=== PATIENT | female | born 1950 | race Caucasian/White ===

== ENCOUNTER 2017-08-25 12:09 | Emergency (ER) | payer MEDICAID, SELFPAY ==
[2017-08-25 12:10] VITALS: BP 186/112; PULSE 72; RESP 16; TEMP 36.7; O2SAT 95; BMI 25.2
--- NOTE | 2017-08-25 12:50 | ED.DCSUM_ITS ---
- ER Visit Summary Date of Service: 08/25/17 Chief Complaint: Back pain History of Present Illness: The patient is a 66 F who presents for 1 week of lower back pain. Patient was moving and doing a lot of lifting and bending 1 week ago, and then developed gradual lower back pain bilaterally. She was seen 2 days ago at urgent care and prescribed Flexeril and diclofenac. She has had minor improvement but states the pain has worsened, now radiating down both posterior hips and legs to the knee. Patient denies any loss of bowel or bladder control, any saddle anesthesia, any numbness or weakness in the legs, fever, abdominal pain or any other concerns. She did use naproxen prior to seeing urgent care and states it helped with her pain. Physical Examination: Vital signs: afebrile, hemodynamically stable, no hypoxia on room air General: well nourished, well developed, in no distress Skin: warm, dry, no rash, no pallor HEENT: normocephalic and atraumatic Cardiovascular: regular rate and rhythm without murmurs, no peripheral edema, 2 + pulses all distal extremities Respiratory: No increased work of breathing, Abdominal: Abdomen is soft, nontender with normoactive bowel sounds, no guarding or rebound, no masses Back: No midline deformities or step-offs, no midline tenderness, patient has lumbar and gluteal paraspinal musculature tenderness bilaterally MSK: Moves all extremities, no deformities, normal strength, negative leg raise pain position Neuro: Awake and alert, oriented ?4. No facial droop, sensation and motor function intact and symmetric Test Results: [] Emergency Department Course and Treatment: I had a long discussion with the patient about expectations for improvement of lower back strains. We discussed medical and nonmedical management and that it normally just takes time to improve. Patient will return to taking naproxen as she felt that worked better than the diclofenac. Patient was given 1 dose of Valium in the emergency department to help with the muscle spasm nature of her pain. She does have someone else driving. Patient was given a small prescription for Valium to help her with nighttime pain and sleeping. She understands that she is not to take it with the cyclobenzaprine. Patient is to follow-up with her family doctor if she is not having improvement in 2-4 weeks. If she develops any red flag symptoms, such as bowel or bladder incontinence, saddle anesthesia, weakness in the legs, numbness in the feet, fever or abdominal pain, she will return to the emergency department immediately for another evaluation. Patient discharged home. Treatment Plan: [] Disposition: [] Impression: lumboSacral strain, lower back spasms This note was generated with [employer] dictation software. It may contain incorrect words, spelling, and punctuation that were not noted in review of the chart prior to signing ED Disposition - Plan for ED Patient: Chief Complaint: Back Prescriptions: Diazepam [Valium] 2 mg PO TID PRN PRN #10 tab PRN Reason: Muscle Spasm Referrals: NOT,DEFINED [Primary Care Provider] -
--- NOTE | 2017-08-25 12:50 | ED.DEP ---
ED Disposition - Plan for ED Patient: Disposition: Home or Assisted Living Chief Complaint: Back Instructions: ED Sprain Strain Lumbar Prescriptions: Diazepam [Valium] 2 mg PO TID PRN PRN #10 tab PRN Reason: Muscle Spasm Lidocaine [Lidoderm Patch] 1 patch TOPICAL DAILY PRN #14 patch PRN Reason: Pain Referrals: Angel Rodriguez MD [STAFF PHYSICIAN] - 1-2 Weeks Additional Instructions: You may use naproxen (aleve) for your back pain but do not use it at the same time as the diclofenac. You may use the Valium at night for severe back pain and spasms. Do not use Valium and cyclobenzaprine at the same time. You may try the lidocaine patches over your lower back, using only one patch at a time and for no more than 12 hours. Do not use more than 1 and 24 hour period. Low back pain may take up to 6-8 weeks to heal. If you are still having symptoms after 2 weeks, please see your doctor for reevaluation. Gentle exercise may help you with the pain. You can also try a heating pad. If you develop any concerning symptoms such as trouble controlling your bowels or bladder, fever, severe abdominal pain, numbness or weakness in your legs, or any other concerning symptoms, return immediately to the emergency department for another evaluation.
[2017-08-25] MEDS: diazePAM 5 MG Tablet 2.5 MG PO (13:01)
[2017-08-25 13:03] VITALS: BP 122/74; PULSE 68; RESP 15; O2SAT 98
== END 2017-08-25 13:04 | disposition home or self-care (01) ==
PROVIDERS: Emergency Provider Emergency Medicine
DX: S39.012D Strain of muscle, fascia and tendon of lower back, subsequent encounter (principal); X50.3XXD Overexertion from repetitive movements, subsequent encounter; R25.2 Cramp and spasm
CPT/HCPCS: 99283

== ENCOUNTER 2018-06-27 18:45 | Emergency (ER) | payer MEDICAID, SELFPAY ==
[2018-06-27 18:45] VITALS: BP 157/95; PULSE 73; RESP 18; TEMP 36.1; O2SAT 94; BMI 22.6
--- NOTE | 2018-06-27 20:29 | ED.RN ---
PT LEAVES WITHOUT BEING SEEN.
== END 2018-06-27 19:30 ==
LOC: ED 20:25
PROVIDERS: Emergency Provider Emergency Medicine
DX: S09.90XA Unspecified injury of head, initial encounter (principal)

== ENCOUNTER 2020-10-13 11:16 | Emergency (ER) | payer MEDICARE, SELFPAY ==
[2019-01-22 12:18] VITALS: BMI 22.6
[2020-10-13 11:17] VITALS: BP 193/105; PULSE 86; RESP 18; TEMP 36.4; O2SAT 95; BMI 24.2
[2020-10-13] MEDS: Morphine 4 MG/ML Syringe IV ×2 (12:00→17:00)
[2020-10-13] MEDS: Ondansetron 4 MG/2 ML Vial IV (12:00)
[2020-10-13 12:03] LABS: Color, Urine Yellow (Yellow); Glucose, Dipstick Normal (Normal); Ketone-Dipstick 50 mg/dl (Negative); Leukocyte Esterase-Dipstick 100 /ul (Negative); Nitrite-Dipstick Positive (Negative); Occult Blood-Urine 250 /ul (Negative); Protein-Dipstick 30 mg/dl (Negative); Urine Clarity Cloudy (Clear); Urine Urobilinogen 4 mg/dl (Normal)
[2020-10-13 12:04] LABS: Urine Bilirubin Dipstick 1 mg/dL (Negative)
--- NOTE | 2020-10-13 12:10 | CT_ITS ---
STUDY: CT ABDOMEN AND PELVIS WITHOUT CONTRAST REASON FOR EXAM: Female, 69 years old. Kidney Stone. One week history of back pain and flank pain. RADIATION DOSAGE (If Supplied By Facility): CTDIvol = ( 13.87 ) mGy, DLP = ( 623.50 ) mGycm TECHNIQUE: Transaxial images were obtained from the dome of the diaphragm to the symphysis pubis without oral contrast, and without intravenous contrast. Sagittal and coronal images were reconstructed. Individualized dose optimization techniques were used for this CT. COMPARISON: None. FINDINGS: Bilateral breast prostheses. 7 mm calcified granuloma in the posterior medial aspect of the left lower lobe. The visualized portions of the heart are within normal limits. Normal liver. Normal gallbladder and extrahepatic biliary system. Normal spleen. Normal pancreas. Normal bilateral adrenal glands. Normal right kidney. There is a 1.9 cm cyst in the posterior inferior aspect of the left kidney. Normal visualized stomach. Normal small intestine. There are multiple colonic diverticula consistent with diverticulosis. The appendix is visualized and appears normal. There is diffuse atherosclerotic calcification of the abdominal aorta and its major visceral branches. There is evidence of a fusiform infrarenal abdominal aortic aneurysm with a transverse dimension of 5 cm. 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 Normal inferior vena cava. Normal retroperitoneum. Normal urinary bladder. There is absence of the uterus consistent with a prior hysterectomy. Normal abdominal wall. There are mild degenerative changes of the visualized lumbar spine. Minimal anterior listhesis of L3 on L4 secondary to facet joint osteoarthritis. 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 Sigmoid diverticulosis. 1.9 cm cyst in the inferior pole of the left kidney. Electronically Signed: Kar Ni MD at 12:35 EDT , Service support ,
[2020-10-13 12:14] LABS: Anion Gap 5 (5-15); BUN 15 mg/dL (7-18); BUN/Creat Ratio 16.6 RATIO (10-20); Calcium,Total 9.4 mg/dL (8.5-10.1); Chloride 105 mmol/L (98-107); EST Glomerular Filtration Rate 66 mL/min (>60); Est Glom Filt Rate - Afr Amer 80 mL/min (>60); Estimated Creatinine Clearance 56.78 ml/min; Glucose 127 mg/dL (74-106); Potassium 3.1 mmol/L (3.5-5.1); Sodium Level 138 mmol/L (136-145)
[2020-10-13 12:18] LABS: Bacteria 4+ /hpf (None Seen); Mucous, Urine RARE /hpf (<or=2+); Red Blood Cells-Urine 0-5 SEEN /hpf (0-5); Squamous Epithelial Cells - UA 5-10 SEEN /hpf (5-10); White Blood Cells 10-25 SEEN /hpf (0-5)
--- NOTE | 2020-10-13 12:40 | ED.DCSUM_ITS ---
- ER Visit Summary Date of Service: 10/13/20 Chief Complaint: Left flank pain History of Present Illness: The patient is a 69 F presenting with left flank pain. She states this started approximately 1 week ago. She denies injury. She has pain in her left flank. She denies abdominal pain. Denies nausea, vomiting, diarrhea. Denies urinary complaints. Denies other symptoms. Physical Examination: Vitals are stable. Patient is afebrile. Alert no acute distress. HEENT exam is unremarkable. Neck is supple. Lungs are clear and equal bilaterally. Heart is regular rate and rhythm. Abdomen is soft nontender nondistended. No guarding or rebound Back: Left CVA tenderness, left paraspinal lumbar muscle tenderness. Extremities are unremarkable. Skin is warm and dry. No focal neurologic deficit. Remainder of exam is unremarkable. Emergency Department Course and Treatment: Patient was given IV morphine, Zofran. Chemistries show potassium 3.1, glucose 127. Urinalysis shows 10-25 white blood cells, positive leukocytes, positive nitrite. 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 Sigmoid diverticulosis. 1.9 cm cyst in the inferior pole of the left kidney. CTA abdomen pelvis shows infrarenal abdominal aortic aneurysm with a transverse dimension of 4.5 cm. Mural thrombus is seen. 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 Findings discussed with Dr. Odom and patient will be seen as an outpatient. She was given Rocephin IV and a prescription for Keflex. She is given Dr. Kirkpatrick on-call for no doctor for follow-up. She is comfortable with discharge home. Advised to return to the ED for worsening complaints. Disposition: Discharge home Impression: Back pain, UTI, abdominal aortic aneurysm This note was generated with [employer] dictation software. It may contain incorrect words, spelling, and punctuation that were not noted in review of the chart prior to signing ED Disposition - Plan for ED Patient: Instructions: Understanding Urinary Tract Infections (UTIs), ED Abdominal Aorti c Aneurysm (Stable) Prescriptions: Cephalexin [Keflex] 500 mg PO Q6 #40 capsule Prescription Printed Hydrocodone Bitart/Apap 5-325 [[place] 5MG-325MG] 1 tablet PO Q6H PRN PRN 3 Days #10 tab PRN Reason: Pain Prescription Printed Referrals: Ilia Odom MD [STAFF PHYSICIAN] - Tommy Kirkpatrick DO [NON CLINICAL AFFILIATE] -
--- NOTE | 2020-10-13 13:09 | CT_ITS ---
STUDY: CTA ABDOMEN/PELVIS WITH CONTRAST REASON FOR EXAM: Female, 69 years old. AAA RADIATION DOSAGE (If Supplied By Facility): CTDIvol = ( 7.27 ) mGy, DLP = ( 715.29 ) mGycm TECHNIQUE: The examination was performed with the intravenous administration of IV 100mL Isovue-370. Post-processing of the angiographic images was performed, with multiplanar reformation and 3D reconstruction. Individualized dose optimization techniques were used for this CT. COMPARISON: Comparison is made with prior examination the narrowing today. FINDINGS: CT Abdomen T Pelvis Stable calcified granulomata posterior medial aspect of the left lower lobe. The visualized portions of the heart are within normal limits. Normal liver. Normal gallbladder and extrahepatic biliary system. Normal spleen. Normal pancreas. Normal bilateral adrenal glands. Normal right kidney. Stable left renal cyst. Normal visualized stomach. Normal small intestine. Normal colon. The appendix is visualized and appears normal. Infrarenal abdominal aortic aneurysm with a transverse dimension of 4.5 cm. Mural thrombus is seen. There is evidence of a partially thrombosed left common iliac artery aneurysm measuring 3 cm. Normal inferior vena cava. Normal retroperitoneum. Normal urinary bladder. Normal abdominal wall. There are diffuse degenerative changes of the visualized lumbar spine. CT/CT ANGIO ABD&PEL W/O&W/DYE IMPRESSION: Infrarenal abdominal aortic aneurysm with a transverse dimension of 4.5 cm. Mural thrombus is seen. 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 Electronically Signed: Kar Ni MD at 15:49 EDT , Service support ,
[2020-10-13 14:22] VITALS: BP 192/91; PULSE 70; RESP 18; O2SAT 92
[2020-10-13 16:00] VITALS: PULSE 81; RESP 14; O2SAT 98
--- NOTE | 2020-10-13 17:22 | DCINST.ED_ITS ---
ED Disposition - Plan for ED Patient: Prescriptions: Cephalexin [Keflex] 500 mg PO Q6 #40 capsule Hydrocodone Bitart/Apap 5-325 [[place] 5MG-325MG] 1 tablet PO Q6H PRN PRN 3 Days #10 tablet PRN Reason: Pain Referrals: Ilia Odom MD [STAFF PHYSICIAN] -
[2020-10-13] MEDS: Ceftriaxone 1 GM/50 ML BAG IV (17:48)
[2020-10-13 18:00] VITALS: BP 162/89; PULSE 82; RESP 15; O2SAT 98
--- NOTE | 2020-10-13 18:13 | DCINST.ED_ITS ---
ED Disposition - Plan for ED Patient: Prescriptions: Cephalexin [Keflex] 500 mg PO Q6 #40 capsule Prescription Printed Hydrocodone Bitart/Apap 5-325 [[place] 5MG-325MG] 1 tablet PO Q6H PRN PRN 3 Days #10 tab PRN Reason: Pain Prescription Printed Referrals: Ilia Odom MD [STAFF PHYSICIAN] - Tommy Kirkpatrick DO [NON CLINICAL AFFILIATE] -
--- NOTE | 2020-10-13 18:15 | DCINST.ED_ITS ---
ED Disposition - Plan for ED Patient: Instructions: ED Abdominal Aortic Aneurysm (Stable), Understanding Urinary Tract Infections (UTIs) Prescriptions: Cephalexin [Keflex] 500 mg PO Q6 #40 capsule Prescription Printed Hydrocodone Bitart/Apap 5-325 [[place] 5MG-325MG] 1 tablet PO Q6H PRN PRN 3 Days #10 tab PRN Reason: Pain Prescription Printed Referrals: Ilia Odom MD [STAFF PHYSICIAN] - Tommy Kirkpatrick DO [NON CLINICAL AFFILIATE] -
== END 2020-10-13 18:35 | disposition home or self-care (01) ==
PROVIDERS: Emergency Provider Emergency Medicine
DX: N39.0 Urinary tract infection, site not specified (principal); I71.4 Abdominal aortic aneurysm, without rupture; I72.3 Aneurysm of iliac artery; K57.30 Diverticulosis of large intestine without perforation or abscess without bleeding; N28.1 Cyst of kidney, acquired; I51.3 Intracardiac thrombosis, not elsewhere classified
CPT/HCPCS: 74174; 74176; 80048; 81001; 96365; 96375; 96376; 99283; J7050; Q9967; A4216; J2405

== ENCOUNTER 2020-10-18 12:35 | Emergency (ER) | payer MEDICARE, SELFPAY ==
[2020-10-18 12:36] VITALS: BP 214/129; PULSE 73; RESP 14; TEMP 36.4; O2SAT 98; BMI 26.6
[2020-10-18 13:50] VITALS: BP 179/128; PULSE 64; RESP 18; O2SAT 97
--- NOTE | 2020-10-18 13:56 | CT_ITS ---
STUDY: CT BRAIN WITHOUT CONTRAST REASON FOR EXAM: Female, 69 years old. Headache -- Hypertension RADIATION DOSAGE (If Supplied By Facility): CTDIvol = ( 44.99 ) mGy, DLP = ( 796.11 ) mGycm TECHNIQUE: Transaxial CT imaging of the brain was performed without administration of intravenous contrast material. Individualized dose optimization techniques were used for this CT. COMPARISON: No relevant priors. FINDINGS: Normal soft tissue structures. Normal calvarium. There is mild cerebral atrophy with widening of the extra-axial spaces and ventricular dilatation. Normal white matter tracts of the cerebral hemispheres. Normal basal ganglia and thalami. Normal brainstem. Normal cerebellum. There is no intracranial hemorrhage. There are no findings of an acute ischemic infarction. Normal visualized paranasal sinuses. CT/Brain/Head without Contrast IMPRESSION: Chronic involutional changes of the brain. Electronically Signed: Kar iN MD at 14:39 EDT , Service support ,
--- NOTE | 2020-10-18 13:56 | EKG12_ITS ---
Test Reason : HTN Blood Pressure : / mmHG Vent. Rate : 062 BPM Atrial Rate : 062 BPM P-R Int : 156 ms QRS Dur : 088 ms QT Int : 478 ms P-R-T Axes : 040 -39 -16 degrees QTc Int : 485 ms Normal sinus rhythm Left axis deviation Septal infarct , age undetermined Nonspecific T wave abnormality Abnormal ECG Confirmed by ARIN VALDES, NICK ([id number]), publication editor PREETI VALDEZ ([id number]) on 10/21/2020 9:01:19 AM Referred By: REX/VELASQUEZ Confirmed By:NICK HINKLE MD
[2020-10-18 14:06] LABS: Absolute Lymphocyte Count 1.34 X10^3/uL (0.83-4.51); Absolute Neutrophil Count 4.7 X10^3/uL (2.0-7.7); Basophil# 0.03 X10^3/uL; Basophil% 0.4 % (0-1); Eosinophil# 0.04 X10^3/uL; Eosinophils% 0.6 % (0-5); Hematocrit 45.2 % (37-47); Hemoglobin 15.1 g/dL (12.0-15.0); Lymphocyte # 1.34 X10^3/ul (0.83-4.51); Lymphocyte % 19.8 % (19-41); Mean Corp Hgb Conc 33.4 g/dL (32-36); Mean Corpuscular Hgb 34.8 pg (27.0-32.0); Mean Corpuscular Volume 104.1 fL (81-99); Mean Platelet Vol. 10.1 fl (6.2-12.0); Monocyte% 8.9 % (0-10); NRBC Flagged by Analyzer 0 % (0-5); Neutrophil # 4.73 X10^3/uL (2.7-7.7); Platelet Count 211 K/mm3 (150-450); RBC Distribution Width CV 13.2 % (11.6-14.6); RBC Distribution Width SD 50.9 fl (35.1-43.9); Red Blood Count 4.34 M/mm3 (4.2-5.4); White Blood Count 6.8 K/mm3 (4.4-11.0)
[2020-10-18 14:16] LABS: Anion Gap 7 (5-15); BUN 12 mg/dL (7-18); BUN/Creat Ratio 15.3 RATIO (10-20); Calcium,Total 9.6 mg/dL (8.5-10.1); Chloride 104 mmol/L (98-107); Creatinine, Serum 0.78 mg/dL (0.55-1.02); EST Glomerular Filtration Rate 78 mL/min (>60); Est Glom Filt Rate - Afr Amer 94 mL/min (>60); Estimated Creatinine Clearance 51.11 ml/min; Glucose 96 mg/dL (74-106); Potassium 3.5 mmol/L (3.5-5.1); Sodium Level 142 mmol/L (136-145)
--- NOTE | 2020-10-18 14:55 | ED.DCSUM_ITS ---
- ER Visit Summary Date of Service: 10/18/20 Chief Complaint: High blood pressure History of Present Illness: The patient is a 69 F who was seen in the emerge department last week and was found to have a UTI and a AAA. She went to follow- up with the physician that she was referred to today and her blood pressure was 248/139 so they sent her to the emergency department. Patient denies a history of high blood pressure. Patient complains of chills, nausea, and a headache. She denies any chest pain or shortness of breath. She reports her headaches 3-10 severity. Is a dull frontal pain that began this morning. She does have a history of similar headaches. Physical Examination: Vitals: 97.6, 214/129, 73, 14, 90% on room air which is not hypoxic. General: Well-nourished and well-developed. Head: Normocephalic atraumatic. Neck: Supple, no lymphadenopathy. No JVD. Nontender. Cardiovascular: Regular rate and rhythm. No murmurs. Respiratory: No respiratory distress. Clear to auscultation bilaterally. Abdominal: Soft, nontender, nondistended, normal bowel sounds. No guarding, rebound, or peritoneal signs. Back: Nontender. Extremities: Nontender, no edema. Skin: Normal color, no rash. Neurologic: Alert and oriented ?3. Cranial nerves II through XII are intact. Normal strength and sensation. Psych: Normal affect. Test Results: EKG is sinus at [address] changes. CBC shows a hemoglobin of 15.1. Chem-7 is normal. UA shows no evidence of infection there is protein present. Clinical Impression(s) from Imaging Studies Brain CT 10/18/20 13:56 IMPRESSION: Chronic involutional changes of the brain. Electronically Signed: Kar Ni MD at 14:39 EDT , Service support , Emergency Department Course and Treatment: Reviewed the patient's recent visit Her blood pressure then ranged between 162-193/89-105. She was given 0.65 mg of Vasotec IV and 10 mg of lisinopril p.o. Repeat blood pressure is 174/105. Treatment Plan: Patient is asking for referral to a physician not in the [facility] network. She will be discharged instructions to follow-up Dr. Bernardino Nolen in 1 week for another exam. She be placed on 10 mg of lisinopril a day. She is also instructed to follow-up with Dr. Odom, the vascular surgeon, as soon as possible regarding her AAA. Finally she is instructed to follow Dr. Posadas for a rash to her right leg that has been present for weeks. Return to the emergency department for any worsening symptoms. Disposition: To home in improved and stable condition. Impression: 1. Hypertension. This note was generated with [employer] software. It may contain incorrect words, spelling, and punctuation that were not noted in review of the chart prior to signing ED Disposition - Plan for ED Patient: Disposition: Home or Assisted Living Instructions: ED Hypertension, New (Begin Treatment) Prescriptions: Lisinopril 10 mg PO DAILY #30 tablet Prescription Printed Referrals: Bernardino Nolen MD [NON-STAFF] - 1 Week Ilia Odom MD [STAFF PHYSICIAN] - As soon as possible Fara Posadas MD [NON-STAFF] - As soon as possible
[2020-10-18 15:16] VITALS: BP 219/119
[2020-10-18] MEDS: Lisinopril 10 MG Tablet PO (15:16)
[2020-10-18] MEDS: Enalaprilat 1.25 MG/ML Vial 0.625 MG IV (15:28)
[2020-10-18 15:34] LABS: Bacteria 0 SEEN /hpf (None Seen); Mucous, Urine 0 SEEN /hpf (<or=2+); Red Blood Cells-Urine 0 SEEN /hpf (0-5); White Blood Cells 0 SEEN /hpf (0-5)
[2020-10-18 15:37] LABS: Color, Urine Yellow (Yellow); Glucose, Dipstick Normal (Normal); Ketone-Dipstick Negative (Negative); Leukocyte Esterase-Dipstick Negative /ul (Negative); Nitrite-Dipstick Negative (Negative); Occult Blood-Urine Negative /ul (Negative); Protein-Dipstick 15 mg/dl (Negative); Urine Bilirubin Dipstick Negative (Negative); Urine Clarity Clear (Clear); Urine Urobilinogen Normal (Normal)
[2020-10-18 15:58] LABS: Squamous Epithelial Cells - UA 0-5 SEEN /hpf (5-10)
[2020-10-18 16:04] VITALS: BP 194/105
[2020-10-18 16:15] VITALS: BP 174/105
== END 2020-10-18 16:28 | disposition home or self-care (01) ==
LOC: ED 14:55
PROVIDERS: Emergency Provider Emergency Medicine
DX: I10 Essential (primary) hypertension (principal); I71.4 Abdominal aortic aneurysm, without rupture; Z87.440 Personal history of urinary (tract) infections
CPT/HCPCS: 70450; 80048; 81001; 85025; 93005; 99285; A4216

== ENCOUNTER → 2020-11-03 11:38 | Outpatient (CLI) | payer MEDICARE, SELFPAY ==
[2020-11-03 10:03] VITALS: BMI 26.6
[2020-11-03 12:20] LABS: Absolute Lymphocyte Count 1.47 X10^3/uL (0.83-4.51); Absolute Neutrophil Count 4.8 X10^3/uL (2.0-7.7); Basophil# 0.03 X10^3/uL; Basophil% 0.4 % (0-1); Eosinophil# 0.09 X10^3/uL; Eosinophils% 1.3 % (0-5); Hematocrit 46.7 % (37-47); Hemoglobin 15.3 g/dL (12.0-15.0); Lymphocyte # 1.47 X10^3/ul (0.83-4.51); Mean Corp Hgb Conc 32.8 g/dL (32-36); Mean Corpuscular Hgb 33.8 pg (27.0-32.0); Mean Corpuscular Volume 103.1 fL (81-99); Mean Platelet Vol. 9.8 fl (6.2-12.0); Monocyte# 0.58 X10^3/uL; Monocyte% 8.3 % (0-10); NRBC Flagged by Analyzer 0 % (0-5); Neutrophil # 4.79 X10^3/uL (2.7-7.7); Neutrophil % 68.4 % (47-70); Platelet Count 228 K/mm3 (150-450); RBC Distribution Width CV 14.4 % (11.6-14.6); RBC Distribution Width SD 53.6 fl (35.1-43.9); Red Blood Count 4.53 M/mm3 (4.2-5.4)
[2020-11-03 12:38] LABS: Hemoglobin A1c 4.8 % (3.8-5.6)
[2020-11-03 12:57] LABS: AST(SGOT) 24 U/L (15-37); Alanine Aminotransfer ALT/SGPT 18 U/L (13-56); Albumin, Serum 3.8 g/dL (3.2-5.0); Alkaline Phosphatase 119 U/L (45-117); Anion Gap 5 (5-15); BUN 16 mg/dL (7-18); BUN/Creat Ratio 18.6 RATIO (10-20); Calcium,Total 9.5 mg/dL (8.5-10.1); Chloride 107 mmol/L (98-107); Cholesterol 265 mg/dL (200); Creatinine, Serum 0.86 mg/dL (0.55-1.02); EST Glomerular Filtration Rate 70 mL/min (>60); Est Glom Filt Rate - Afr Amer 84 mL/min (>60); Globulin 3.8 g/dL (2.2-4.2); Glucose 86 mg/dL (74-106); High Density Lipoprotein 73 mg/dL; Protein, Total 7.6 g/dL (6.4-8.2); Sodium Level 143 mmol/L (136-145); Triglycerides 84 mg/dL; Very Low Density Lipoprotein 17 mg/dL (5-40)
== END ==
PROVIDERS: PCP Internal Medicine; Referring Provider Internal Medicine; Visit Provider Internal Medicine
DX: I10 Essential (primary) hypertension (principal); I71.4 Abdominal aortic aneurysm, without rupture; R73.09 Other abnormal glucose
CPT/HCPCS: 36415; 80053; 80061; 82088; 83036; 84244; 85025

== ENCOUNTER → 2020-11-05 08:56 | Outpatient (CLI) | payer MEDICARE, SELFPAY ==
[2020-11-03 10:03] VITALS: BMI 26.6
--- NOTE | 2020-11-05 08:58 | EKG12_ITS ---
Test Reason : HTN Blood Pressure : / mmHG Vent. Rate : 068 BPM Atrial Rate : 068 BPM P-R Int : 144 ms QRS Dur : 086 ms QT Int : 446 ms P-R-T Axes : 050 -43 078 degrees QTc Int : 474 ms Normal sinus rhythm Left axis deviation Septal infarct , age undetermined T wave abnormality, consider anterior ischemia Abnormal ECG Confirmed by ARIN VALDES, NICK ([id number]), restaurant expeditor PREETI VALDEZ ([id number]) on 11/08/2020 2:16:06 PM Referred By: Lubna Dey Confirmed By:NICK HINKLE MD
== END ==
PROVIDERS: PCP Internal Medicine; Referring Provider Internal Medicine; Visit Provider Internal Medicine
DX: I10 Essential (primary) hypertension (principal)
CPT/HCPCS: 93005

== ENCOUNTER → 2020-11-09 08:49 | Outpatient (CLI) | payer MEDICARE, SELFPAY ==
[2020-11-03 10:03] VITALS: BMI 26.6
--- NOTE | 2020-11-09 09:16 | US_ITS ---
STUDY: THYROID ULTRASOUND REASON FOR EXAM: Female, 69 years old. Palpably enlarged thyroid TECHNIQUE: Ultrasound evaluation of the thyroid was performed with real-time and static sullivan-scale imaging. COMPARISON: None. FINDINGS: RIGHT LOBE: The right lobe of the thyroid gland measures 4.2 x 2.0 x 1.3 cm. There is a homogeneous echotexture. There are no demonstrated solid, cystic or complex lesions. LEFT LOBE: The left lobe of the thyroid gland measures 3.5 x 1.5 x 1.3 cm. There is a homogeneous echotexture. There are no demonstrated solid, cystic or complex lesions. ISTHMUS: The isthmus measures 3 mm. The regional lymph nodes are normal. Incidental note is made of atherosclerotic plaque in the CCAs US/Thyroid IMPRESSION: Normal ultrasound examination of the thyroid. Electronically Signed: Bereket Ashford MD at 11:18 EDT , Service support ,
--- NOTE | 2020-11-09 09:16 | BI_ITS ---
MAMMOGRAPHY - BILATERAL DIAGNOSTIC REASON FOR EXAM: Female, 69 years old. Implants PERTINENT HISTORY: Non-contributory. TECHNIQUE: Digital examination. Mediolateral oblique (MLO) and craniocaudad (CC) views of both breasts were obtained, along with implant displaced views. CAD: CAD was performed on this study. COMPARISON: No comparison mammograms available at this time. If any prior films become available, an addendum to this report can be generated. FINDINGS: Breast Composition: There are scattered areas of fibroglandular density. There are no dominant masses or suspicious calcifications. No other significant abnormalities are identified. Implants are intact and free of complication BI/DIAG MAMM W/CAD, BILAT IMPRESSION: Negative diagnostic mammogram. Yearly followup recommended. ASSESSMENT CATEGORY: BIRADS Category 2: Benign. A letter regarding these results will be sent to the patient by the facility within 30 days. FOLLOW UP RECOMMENDATION: Yearly follow up mammogram recommended. (A) Approximately 10% of breast cancers are not detected by mammography. A normal mammogram should not delay biopsy of a clinically suspicious abnormality. Electronically Signed: Bereket Ashford MD at 10:39 EDT , Service support ,
== END ==
PROVIDERS: PCP Internal Medicine; Referring Provider Internal Medicine; Visit Provider Internal Medicine
DX: E04.9 Nontoxic goiter, unspecified (principal); N64.59 Other signs and symptoms in breast; I10 Essential (primary) hypertension
CPT/HCPCS: 76536; 77062; 77066; G0279

== ENCOUNTER → 2020-11-15 09:49 | Outpatient (CLI) | payer MEDICARE, SELFPAY ==
[2020-11-03 10:03] VITALS: BMI 26.6
[2020-11-15 13:08] LABS: Vitamin B12 242 pg/mL (211-911)
[2020-11-15 14:12] LABS: Anion Gap 5 (5-15); BUN 35 mg/dL (7-18); BUN/Creat Ratio 25.9 RATIO (10-20); Calcium,Total 9.9 mg/dL (8.5-10.1); Chloride 103 mmol/L (98-107); Creatinine, Serum 1.35 mg/dL (0.55-1.02); EST Glomerular Filtration Rate 42 mL/min (>60); Est Glom Filt Rate - Afr Amer 50 mL/min (>60); Glucose 87 mg/dL (74-106); Iron 60 ug/dL (50-170); Iron Binding Capacity,Total 430 ug/dL (250-450); Magnesium 1.9 mg/dL (1.6-2.6); Potassium 4.4 mmol/L (3.5-5.1); Sodium Level 137 mmol/L (136-145)
[2020-11-16 18:55] LABS: Erythropoietin 10.7 mIU/mL (2.6-18.5)
== END ==
PROVIDERS: PCP Internal Medicine; Referring Provider Internal Medicine; Visit Provider Internal Medicine
DX: I10 Essential (primary) hypertension (principal); E87.6 Hypokalemia; D58.2 Other hemoglobinopathies; R71.8 Other abnormality of red blood cells
CPT/HCPCS: 36415; 80048; 82607; 82668; 83540; 83550; 83735

== ENCOUNTER → 2020-11-18 09:31 | Outpatient (CLI) | payer MEDICARE, SELFPAY ==
[2020-11-03 10:03] VITALS: BMI 26.6
[2020-11-17 12:57] VITALS: BMI 26.6
--- NOTE | 2020-11-18 09:32 | CDU_ITS ---
Reason For Study: HTN Rt. Velocities/BP Lt. Velocities/BP Prox CCA 57.5/14.6 cm/sec. Prox CCA 79.6/19.2 cm/sec. Mid CCA 60.8/14.6 cm/sec. Mid CCA 81.5/16.3 cm/sec. Dist CCA 36.6/12.4 cm/sec. Dist CCA 62.6/14.5 cm/sec. Prox ICA 31.5/10.7 cm/sec. Prox ICA 79.6/28.6 cm/sec. Mid ICA 45.6/15.4 cm/sec. Mid ICA 65.5/15.4 cm/sec. Dist ICA 64.5/23.0 cm/sec. Dist ICA 57.0/17.3 cm/sec. Rt. ICA/CCA = 1.1. Lt. ICA/CCA = 1.0. Prox ECA 68.4/13.5 cm/sec. Prox ECA 63.6/14.5 cm/sec. Rt. Vert. 31.5/8.8 cm/sec. Right Extracranial There is intimal thickening but no significant atherosclerotic plaque noted in the right common carotid artery. There is heterogeneous, irregular atherosclerotic plaque noted in the right internal carotid artery. There is homogeneous, smooth atherosclerotic plaque noted in the right external carotid artery. Antegrade flow is noted in the right vertebral artery. Left Extracranial There is heterogeneous, irregular atherosclerotic plaque noted in the left common carotid artery. There is heterogeneous, irregular atherosclerotic plaque noted in the left internal carotid artery. There is homogeneous, smooth atherosclerotic plaque noted in the left external carotid artery. Retrograde flow noted in the left vertebral artery. Procedure Carotid Duplex 74120. This is a Carotid Duplex examination using B-mode, color flow and specral Doppler. The exam was diagnostic. Exam performed in department. VL/Carotid Duplex Ultrasound Interpretation Summary Mild (<50%) stenosis right extracranial internal carotid. Mild (<50%) stenosis left extracranial internal carotid. Flow within the right verterbral artery is antegrade. Flow wi thin the left verterbral artery is retrograde, consistent with a subclavian steal phenomenon. Ordering Physician: Lubna Dey Performed By: Tan Holcomb RVT
== END ==
PROVIDERS: PCP Internal Medicine; Referring Provider Internal Medicine; Visit Provider Internal Medicine
DX: I10 Essential (primary) hypertension (principal); I65.23 Occlusion and stenosis of bilateral carotid arteries
CPT/HCPCS: 93880

== ENCOUNTER → 2020-11-29 06:16 | Outpatient (CLI) | payer MEDICARE, SELFPAY ==
[2020-11-23 10:11] VITALS: BMI 26.6
--- NOTE | 2020-11-29 07:40 | STRESSREP ---
Stress Test Report Date: 11-29-2020 Procedure: Pharmacologic stress nuclear imaging study Indications: Abnormal ECG; hypertension Consent: Per the patient Procedure: The patient underwent pharmacologic (Regadenoson 0.4mg ) evaluation with a peak heart rate of 104 beats per minute (67%predicted maximal heart rate) and a peak blood pressure of 162/94 mmHg. The baseline ECG demonstrated sinus rhythm; septal [place] of indeterminate age cannot be excluded; nonspecific ST/T wave abnormality. The peak pharmacologic ECG demonstrated no obvious ECG changes. There was an isolated PVC during recovery. There was no complaint of chest discomfort during pharmacologic infusion or recovery. The examination was discontinued secondary to completion of protocol. Impression: 1. Pharmacologic (Regadenoson) evaluation 2. Peak pharmacologic ECG with no obvious ECG changes. 3. There was an isolated PVC during recovery. 4. Nuclear images pending Myocardial perfusion imaging study: Technique: The patient was injected with 11.7 millicuries of technetium 99m Cardiolite and subsequently rest SPECT Cardiolite nuclear imaging was obtained in the horizontal long, vertical long, and short axis views. The patient underwent pharmacologic (Regadenoson) evaluation with a peak heart rate of 104 beats per minute (67% percent predicted maximal heart rate) and a peak blood pressure of 162/94 mmHg. The patient was injected with 33.5 millicuries of technetium 99m Cardiolite and subsequently stress SPECT Cardiolite nuclear imaging was obtained in the horizontal long, vertical long, and short axis views. A gated Cardiolite study at peak stress was obtained. Interpretation: Rest and stress SPECT Cardiolite nuclear imaging status post realignment, normalization, and attenuation correction demonstrate relative uniform tracer uptake and myocardial perfusion appearing within normal limits. There is end systolic thickening and brightening. The gated Cardiolite study demonstrates myocardial thickening and inward wall motion. The reported LVEF is 88%. Impression: 1. Rest and stress SPECT Cardiolite nuclear imaging demonstrate relative uniform tracer uptake and myocardial perfusion appearing within normal limits. 2. The gated Cardiolite study reports an LVEF of 88%. This note was generated with [employer] software. It may contain incorrect words, spelling, and punctuation that were not noted in checking the note before signing.
== END ==
PROVIDERS: PCP Internal Medicine; Referring Provider Internal Medicine; Visit Provider Internal Medicine
DX: R94.31 Abnormal electrocardiogram [ECG] [EKG] (principal)
CPT/HCPCS: 78452; 93017; A9500; A4216; J2785

== ENCOUNTER → 2021-01-18 11:50 | Outpatient (CLI) | payer MEDICARE, SELFPAY ==
[2021-01-18 11:09] VITALS: BMI 25.3
[2021-01-18 15:29] LABS: ALB/GLOB Ratio 0.9 RATIO (0.9-2.4); AST(SGOT) 16 U/L (15-37); Alanine Aminotransfer ALT/SGPT 19 U/L (13-56); Albumin, Serum 3.6 g/dL (3.2-5.0); Alkaline Phosphatase 114 U/L (45-117); Anion Gap 7 (5-15); BUN 34 mg/dL (7-18); BUN/Creat Ratio 24.6 RATIO (10-20); Calcium,Total 9.4 mg/dL (8.5-10.1); Chloride 108 mmol/L (98-107); Creatinine, Serum 1.38 mg/dL (0.55-1.02); EST Glomerular Filtration Rate 40 mL/min (>60); Est Glom Filt Rate - Afr Amer 49 mL/min (>60); Globulin 3.8 g/dL (2.2-4.2); Glucose 88 mg/dL (74-106); Magnesium 1.6 mg/dL (1.6-2.6); Potassium 4.9 mmol/L (3.5-5.1); Protein, Total 7.4 g/dL (6.4-8.2); Sodium Level 141 mmol/L (136-145)
== END ==
PROVIDERS: PCP Internal Medicine; Referring Provider Internal Medicine; Visit Provider Internal Medicine
DX: E87.6 Hypokalemia (principal)
CPT/HCPCS: 36415; 80053; 83735

== ENCOUNTER → 2021-02-01 12:03 | Outpatient (CLI) | payer MEDICARE, SELFPAY ==
[2021-02-01 11:36] VITALS: BMI 25.3
[2021-02-01 15:33] LABS: Anion Gap 6 (5-15); BUN 15 mg/dL (7-18); BUN/Creat Ratio 13.2 RATIO (10-20); Calcium,Total 9.4 mg/dL (8.5-10.1); Chloride 106 mmol/L (98-107); Creatinine, Serum 1.14 mg/dL (0.55-1.02); EST Glomerular Filtration Rate 50 mL/min (>60); Est Glom Filt Rate - Afr Amer 61 mL/min (>60); Glucose 98 mg/dL (74-106); Potassium 3.9 mmol/L (3.5-5.1); Sodium Level 140 mmol/L (136-145)
== END ==
PROVIDERS: PCP Internal Medicine; Referring Provider Internal Medicine; Visit Provider Internal Medicine
DX: R79.89 Other specified abnormal findings of blood chemistry (principal); I10 Essential (primary) hypertension
CPT/HCPCS: 36415; 80048

== ENCOUNTER 2021-07-05 11:55 | Outpatient (CLI) | payer MEDICARE, SELFPAY ==
[2021-07-05 15:10] LABS: Absolute Lymphocyte Count 2.08 X10^3/uL (0.83-4.51); Absolute Neutrophil Count 6.7 X10^3/uL (2.0-7.7); Basophil# 0.05 X10^3/uL; Basophil% 0.5 % (0-1); Eosinophil# 0.08 X10^3/uL; Eosinophils% 0.8 % (0-5); Hematocrit 48.1 % (37-47); Lymphocyte # 2.08 X10^3/ul (0.83-4.51); Lymphocyte % 21.2 % (19-41); Mean Corp Hgb Conc 33.3 g/dL (32-36); Mean Corpuscular Hgb 34.5 pg (27.0-32.0); Mean Corpuscular Volume 103.7 fL (81-99); Mean Platelet Vol. 11.1 fl (6.2-12.0); Monocyte% 8.2 % (0-10); NRBC Flagged by Analyzer 0 % (0-5); Neutrophil # 6.73 X10^3/uL (2.7-7.7); Neutrophil % 68.7 % (47-70); Platelet Count 300 K/mm3 (150-450); RBC Distribution Width CV 13.1 % (11.6-14.6); RBC Distribution Width SD 50.1 fl (35.1-43.9); Red Blood Count 4.64 M/mm3 (4.2-5.4); White Blood Count 9.8 K/mm3 (4.4-11.0)
[2021-07-05 15:32] LABS: ALB/GLOB Ratio 0.8 RATIO (0.9-2.4); AST(SGOT) 15 U/L (15-37); Alanine Aminotransfer ALT/SGPT 16 U/L (13-56); Albumin, Serum 3.5 g/dL (3.2-5.0); Alkaline Phosphatase 107 U/L (45-117); Anion Gap 13 (5-15); BUN 37 mg/dL (7-18); BUN/Creat Ratio 21.5 RATIO (10-20); Calcium,Total 9.4 mg/dL (8.5-10.1); Chloride 102 mmol/L (98-107); Creatinine, Serum 1.72 mg/dL (0.55-1.02); EST Glomerular Filtration Rate 31 mL/min (>60); Est Glom Filt Rate - Afr Amer 38 mL/min (>60); Globulin 4.6 g/dL (2.2-4.2); Glucose 69 mg/dL (74-106); Protein, Total 8.1 g/dL (6.4-8.2); Sodium Level 140 mmol/L (136-145); Thyroid Stim Hormone (TSH) 1.39 uIU/mL (0.358-3.74)
== END 2021-07-05 23:59 | disposition short-term general hospital (02) ==
PROVIDERS: PCP Internal Medicine; Visit Provider Internal Medicine
DX: I10 Essential (primary) hypertension (principal); I71.4 Abdominal aortic aneurysm, without rupture; D58.2 Other hemoglobinopathies; R79.89 Other specified abnormal findings of blood chemistry; E55.9 Vitamin D deficiency, unspecified
CPT/HCPCS: 36415; 80053; 82306; 84443; 85025

== ENCOUNTER 2021-07-08 08:54 | Outpatient (CLI) | payer MEDICARE, SELFPAY ==
--- NOTE | 2021-07-08 08:56 | RDU_ITS ---
Reason For Study: Elevated Serum Creatinine, HTN, AAA, Smoker Right Renal Artery Left Renal Artery Right renal artery ostium 325/69 Left renal artery ostium 245/46 RSV/EDV. PSV/EDV. Right renal artery proximal 305/55 Left renal artery proximal PSV/EDV PSV/EDV. 239/42 . Right renal artery mid 348/41 Left renal artery mid 187/35 PSV/EDV. PSV/EDV . Right renal artery distal 292/45 Left renal artery distal 265/42 PSV/EDV. PSV/EDV. Right RAR 4.41. Left RAR 3.35. Right Renal Parenchyma Left Renal Parenchyma Upper Pole Medula 30/10 PSV/EDV. Left upper pole medulla 28/10 Right upper pole medulla EDR 0.33 . PSV/EDV . Right upper pole medulla R.I. Left upper pole medulla EDR 0.36 . 0.65 . Left upper pole medulla R.I. 0.65 . Upper Akira Cortx 23/7 PSV/EDV. UP Cortex 22/10 PSV/EDV. Right upper pole cortex EDR 0.30 . Left upper pole cortex EDR 0.45 . Right upper pole cortex R.I. 0.69 . Left upper pole cortex R.I. 0.56 . Right lower Pole medulla 28/11 Left lower Pole medulla 25/9 PSV/EDV . PSV/EDV . Right lower pole medulla EDR 0.39 . Left lower pole medulla EDR 0.36 . Right lower pole medulla R.I. Left lower pole medulla R.I. 0.64 . 0.61 . Lower Pole Cortx 19/7 PSV/EDV. Lower Pole Cortex 16/6 PSV/EDV. Left lower pole cortex EDR 0.37 . Right lower pole cortex EDR 0.38 . Left lower pole cortex R.I. 0.61 . Right lower pole cortex R.I. 0.62 . Left Renal Hilar Right Renal Hilar LT Hilar avg 109/30 PSV/EDV . Right Hilar avg 64/23 PSV/EDV. Left hilar acceleration time 60 Right hilar acceleration time 60 m/sec. m/sec. Left Renal Dimensions Right Renal Dimensions Left kidney size 9.87 cm . Right kidney size 8.68 cm . Left cortical dimension 1.48 cm . Right cortical dimension 1.28 cm . Aorta Proximal abdominal aorta 3.29cm x 3.08 cm . Proximal abdominal aorta peak systolic velocity is 79 cm/sec . Ao Mid: 4.86cm x 4.47cm, true lumen: 2.74cm x 2.99cm Distal Ao true lumen: 2.57cm x 3.34cm. Distal abdominal aorta 4.61cm x 5.11 cm . Distal abdominal aorta peak systolic velocity is 55 cm/sec . VL/Renal Artery Duplex Ultrasound Interpretation Summary Proximal abdominal aortic aneurysm 3.29 x 3.08 cm Mid abdominal aortic aneurysm 4.86 x 4.47 cm with a true lumen of 2.74 x 2.99 c m Distal abdominal aortic aneurysm 4.61 x 5.11 cm with a true lumen of 2.57 cm x 3.34 cm Greater than 60% stenosis right renal artery Right renal length diminished at 8.68 cm Greater than or equal to 60% stenosis left renal artery Left renal length maintained at 9.87 cm Ordering Physician: Lubna Dey Referring Physician: Lubna Dey Performed By: Barbara Weiss, RENAE, RVT
== END 2021-07-08 23:59 | disposition short-term general hospital (02) ==
PROVIDERS: PCP Internal Medicine; Referring Provider Internal Medicine; Visit Provider Internal Medicine
DX: R79.89 Other specified abnormal findings of blood chemistry (principal); I71.4 Abdominal aortic aneurysm, without rupture; I10 Essential (primary) hypertension
CPT/HCPCS: 93975

== ENCOUNTER 2021-07-26 08:59 | Outpatient (CLI) | payer MEDICARE, SELFPAY ==
[2021-07-26 13:02] LABS: Vitamin B12 212 pg/mL (211-911)
[2021-07-26 13:15] LABS: Anion Gap 5 (5-15); BUN 12 mg/dL (7-18); BUN/Creat Ratio 11.7 RATIO (10-20); Calcium,Total 9.4 mg/dL (8.5-10.1); Chloride 108 mmol/L (98-107); Creatinine, Serum 1.03 mg/dL (0.55-1.02); EST Glomerular Filtration Rate 57 mL/min (>60); Est Glom Filt Rate - Afr Amer 68 mL/min (>60); Glucose 96 mg/dL (74-106); Potassium 3.5 mmol/L (3.5-5.1); Sodium Level 139 mmol/L (136-145)
[2021-07-27 17:27] LABS: Erythropoietin 10.3 mIU/mL (2.6-18.5)
== END 2021-07-26 23:59 | disposition short-term general hospital (02) ==
LOC: BIMLAB 09:00
PROVIDERS: PCP Internal Medicine; Referring Provider Surgery Vascular Surgery; Visit Provider Surgery Vascular Surgery
DX: I70.213 Atherosclerosis of native arteries of extremities with intermittent claudication, bilateral legs (principal); I71.4 Abdominal aortic aneurysm, without rupture; F17.200 Nicotine dependence, unspecified, uncomplicated; I10 Essential (primary) hypertension; E07.9 Disorder of thyroid, unspecified
CPT/HCPCS: 36415; 80048; 82607; 82668; 82746

== ENCOUNTER 2021-08-02 14:00 | Outpatient (CLI) | payer MEDICARE, SELFPAY ==
--- NOTE | 2021-08-02 14:04 | CT_ITS ---
STUDY: CTA ABDOMEN AND PELVIS WITH CONTRAST REASON FOR EXAM: Female, 70 years old. RENAL ARTERY STENOSIS RADIATION DOSAGE (If Supplied By Facility): CTDIvol = ( 20.89 ) mGy, DLP = ( 651.35 ) mGycm TECHNIQUE: Transaxial images were obtained from the dome of the diaphragm to the symphysis pubis without oral contrast. IV 100mL Isovue-370 was administered. Sagittal and coronal images were reconstructed. Individualized dose optimization techniques were used for this CT. COMPARISON: Comparison is made with prior examination of 10/13/2020. FINDINGS: A left breast implant is seen. Minimal increased markings in the lingular segment of the left upper lobe suggests a mild degree of scarring. The visualized portions of the heart are within normal limits. Normal liver. Normal gallbladder and extrahepatic biliary system. Normal spleen. Normal pancreas. Normal bilateral adrenal glands. Normal right kidney. Stable 2.1 cm cyst in the lower pole of the left kidney. There is a small hiatal hernia. Normal small intestine. There are multiple colonic diverticula consistent with diverticulosis. The appendix is visualized and appears normal. There is diffuse atherosclerotic calcification of the abdominal aorta. Fusiform infrarenal abdominal aortic aneurysm with a transverse dimension of 5 cm. This has progressed slightly as compared to prior study. Mural thrombus is seen. There is evidence of aneurysmal dilatation of the left common iliac artery with a transverse dimension of 3.3 cm. Mural thrombus is seen. Normal inferior vena cava. Normal retroperitoneum. Normal urinary bladder. There is absence of the uterus consistent with a prior hysterectomy. Normal abdominal wall. There are diffuse degenerative changes of the visualized lumbar spine. Levoscoliosis. CT/CT ANGIO ABD&PEL W/O&W/DYE IMPRESSION: Infrarenal abdominal aortic aneurysm with a transverse dimension of 5 cm. Mural thrombus is seen. The remainder of the examination is unchanged. Electronically Signed: Kar Ni MD at 15:25 EST ,
== END 2021-08-02 23:59 | disposition home or self-care (01) ==
LOC: CT 14:01
PROVIDERS: PCP Internal Medicine; Referring Provider Surgery Vascular Surgery; Visit Provider Surgery Vascular Surgery
DX: I74.4 Embolism and thrombosis of arteries of extremities, unspecified (principal); I70.213 Atherosclerosis of native arteries of extremities with intermittent claudication, bilateral legs; F17.200 Nicotine dependence, unspecified, uncomplicated; I10 Essential (primary) hypertension; E07.9 Disorder of thyroid, unspecified
CPT/HCPCS: 74174; Q9967

== ENCOUNTER → 2022-06-07 | Outpatient (CLI) | payer MEDICARE, SELFPAY ==
--- NOTE | 2022-06-07 12:56 | CT_ITS ---
STUDY: CTA ABDOMEN AND PELVIS WITH CONTRAST REASON FOR EXAM: Female, 71 years old. AAA SMOKER. RADIATION DOSAGE (If Supplied By Facility): CTDIvol = ( 11.12 ) mGy, DLP = ( 500.68 ) mGycm TECHNIQUE: Transaxial images were obtained from the dome of the diaphragm to the symphysis pubis without oral contrast. IV 100mL Isovue-370 was administered. Sagittal and coronal images were reconstructed. 3-D images were reconstructed. Individualized dose optimization techniques were used for this CT. COMPARISON: Comparison is made with prior examination of 08/02/2021. FINDINGS: Bilateral breast implants are seen. Stable minimal increased markings in the anterior aspect of the lingular segment of the left upper lobe. Mild degree of coronary calcification. There is decreased attenuation of the liver consistent with steatosis. Normal gallbladder and extrahepatic biliary system. Normal spleen. Normal pancreas. Normal bilateral adrenal glands. Normal right kidney. Stable 2.9 cm cyst in the lower pole of the left kidney. Normal visualized stomach. Normal small intestine. There are multiple colonic diverticula consistent with diverticulosis. The appendix is visualized and appears normal. There is diffuse atherosclerotic calcification of the abdominal aorta. Once again, a fusiform abdominal aortic aneurysm. The proximal portion arises just distal to the renal arteries. There is a transverse dimension of 5.27 cm. Mural thrombus is seen. There is evidence of a 3.5 cm partially thrombosed aneurysm of the proximal left common iliac artery. Normal inferior vena cava. Normal retroperitoneum. Normal urinary bladder. There is absence of the uterus consistent with a prior hysterectomy. Normal abdominal wall. There are diffuse degenerative changes of the visualized lumbar spine. Levoscoliosis. CT/CT ANGIO ABD&PEL W/O&W/DYE IMPRESSION: Persistent infrarenal abdominal aortic aneurysm with a transverse dimension of 5.3 cm. Mural thrombus. 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 Electronically Signed: Kar Ni MD at 13:55 EST ,
[2022-06-07 13:46] LABS: CREATININE FINGERSTICK 1.4 mg/dL (0.55-1.02)
== END | disposition home or self-care (01) ==
LOC: CT 12:54
PROVIDERS: PCP Internal Medicine; Visit Provider Surgery Vascular Surgery
DX: I71.43 Infrarenal abdominal aortic aneurysm, without rupture (principal); I72.3 Aneurysm of iliac artery; I70.0 Atherosclerosis of aorta; N28.1 Cyst of kidney, acquired; K57.30 Diverticulosis of large intestine without perforation or abscess without bleeding; F17.200 Nicotine dependence, unspecified, uncomplicated; I10 Essential (primary) hypertension; E07.9 Disorder of thyroid, unspecified
CPT/HCPCS: 74174; Q9967

== ENCOUNTER 2022-10-25 00:31 | Emergency (ER) | payer MEDICARE, SELFPAY ==
[2022-10-25 00:31] VITALS: BP 140/90; PULSE 82; RESP 18; TEMP 35.7; O2SAT 93; BMI 25.8
--- NOTE | 2022-10-25 00:56 | CT_ITS ---
INDICATION: pain, stiffness, diffuse TTP EXAMINATION: CT NECK WITH CONTRAST - CT Soft Tissue Neck W/ Contrast Injection TECHNIQUE: Helically acquired images were obtained of the neck with sagittal and coronal reconstructed images. Individualized dose optimization techniques were used for this CT. IV contrast dosage and agent: 75 mL of Isovue-370. COMPARISON: None. FINDINGS: NASOPHARYNX: Unremarkable. SUPRAHYOID NECK: Unremarkable oropharynx, oral cavity, parapharyngeal space, and retropharyngeal space. INFRAHYOID NECK: Unremarkable larynx, hypopharynx, and supraglottis. THYROID: No nodule or mass visualized. SALIVARY GLANDS: Unremarkable. LYMPH NODES: No evidence of adenopathy. VASCULAR STRUCTURES: Atherosclerotic plaques of the bilateral proximal internal carotid arteries with less than 50% stenosis. No evidence of carotid artery dissection. Dominant right vertebral artery. Proximal left vertebral artery is unopacified with normal opacification from the level of C5-C6 distally. VISUALIZED PORTIONS OF THE ORBITS, PARANASAL SINUSES, MASTOID AIR CELLS AND SKULL BASE: Unremarkable. BONES: Mild to moderate degenerative changes of the cervical spine. No acute fracture or subluxation. THORACIC INLET: Mild centrilobular emphysematous changes of the visualized upper lungs. CT/Soft Tissue Neck WITH Contrast IMPRESSION: 1. Unopacified proximal left vertebral artery with normal opacification from C5-C6 to the basilar artery. Findings may represent stenosis of the proximal left vertebral artery versus occlusion with reconstitution distally. 2. Atrophic changes of the bilateral proximal internal carotid arteries with less than 50% stenosis. No evidence of carotid artery dissection. 3. No acute soft tissue or vertebral abnormality. Electronically Signed: Aaron Cai DO at 2:25 EDT ,
--- NOTE | 2022-10-25 00:56 | CT_ITS ---
INDICATION: headache, neck pain EXAMINATION: CT BRAIN - CT Head or Brain W/O Contrast Injection TECHNIQUE: Multiple axial images were obtained of the head with sagittal and coronal reconstructed images. Individualized dose optimization techniques were used for this CT. IV contrast dosage and agent: None. COMPARISON: 10/18/2020 CT. FINDINGS: BRAIN PARENCHYMA: No evidence of an acute infarct or intracranial hemorrhage. No evidence of a mass. White matter changes consistent with mild chronic microvascular disease. CSF SPACES: The ventricles, sulci and subarachnoid cisterns are appropriate for age. CALVARIUM, SKULL BASE, PARANASAL SINUSES AND MASTOID AIR CELLS: No fracture. Mastoid air cells are clear. Visualized paranasal sinuses are unremarkable. ORBITS: The globes, extraocular muscles, optic nerves and retrobulbar fat are unremarkable. CT/Brain/Head without Contrast IMPRESSION: No acute intracranial abnormality. Electronically Signed: Aaron Cai DO at 2:13 EDT ,
--- NOTE | 2022-10-25 00:58 | EX.ED.DYSGE1 ---
HPI History of Present Illness Chief Complaint: Back Informant: patient Narrative Narrative: Patient presents with upper back and neck pain that is severe. It hurts to move and so she feels like she cannot move her head at all because of the pain. Any movement hurts. This has been gradually progressive for the past 4 weeks or so. She denies any focal neurologic symptoms in her arms, legs, vision, speech, swallowing. She states this started with shingles that she had in her right upper back/neck, she points to the trapezius area on top of her shoulder. She states it got better and then she broke out with a different rash all over her entire back. She states that was 1 or 2 weeks ago, she had a skin biopsy of it and does not know the results yet, and was put on some type of cream, she does not know what it was or what type of medication it was, but now that rash is all gone. At some point during all of this, she developed all of this pain in her upper back and neck, and it is now severe to the point where she cannot move or lie down because of having pain. She has a headache, but she states that basically just started today. No nausea or vomiting, no vision changes or photophobia. No fevers or chills. No confusion. No falls or injury. [facility] Medical History AAA (abdominal aortic aneurysm) Breast lump Contact with and (suspected) exposure to other viral communicable diseases COVID-19 Elevated hemoglobin Elevated MCV Enlarged thyroid gland Hay fever Hearing problem Hemorrhoids HTN (hypertension) Hypokalemia Knee pain, chronic Rash Uncontrolled hypertension Home Medications cholecalciferol (vitamin D3) 25 mcg (1,000 unit) capsule 25 mcg PO DAILY 08/11/21 [History Last Taken Unknown] aspirin 81 mg tablet,delayed release 81 mg PO DAILY 10/31/21 [History Last Taken Unknown] amlodipine 10 mg tablet 10 mg PO DAILY #90 tabs 01/04/22 [Rx Last Taken Unknown] metoprolol tartrate 50 mg tablet 50 mg PO DAILY #90 tabs 10/17/22 [Rx Last Taken Unknown] orphenadrine citrate 100 mg tablet,extended release 100 mg PO BID PRN muscle spasm/pain #14 tabs 10/25/22 [Rx Last Taken Unknown] oxycodone-acetaminophen 5 mg-325 mg tablet 1 tab PO Q6H PRN PRN Pain 3 days #12 TABLETS 10/25/22 [Rx Last Taken Unknown] Allergy/AdvReac Type Severity Reaction Status Date / Time NSAIDS (Non-Steroidal AdvReac Nausea Verified 10/25/22 00:34 Anti-Inflamma Family History Other Anxiety with depression Arthritis Asthma Diabetes Hyperlipemia Hypertension Social History Smoking Status: Light Smoker (<10/day) alcohol intake: current alcohol intake frequency: a few times a week Alcohol type: hard liquor substance use type: does not use ROS ROS ED Constitutional Constitutional ED: Denies chills or fever(s) Eyes Eyes: Denies change in vision or diplopia ENT ENT ED: Denies rhinorrhea or sore throat Cardiovascular Cardiovascular: Denies chest pain or palpitations Respiratory/Chest Respiratory/Chest: Denies cough or dyspnea Gastrointestinal Gastrointestinal: Denies abdominal pain, diarrhea, nausea or vomiting Genitourinary Genitourinary ED: Denies dysuria or hematuria Musculoskeletal Musculoskeletal: Reports as per HPI, back pain and neck pain; Denies extremity pain Integumentary Denies abscess or rash Neurologic Neurologic: Reports headache(s) and other Details: States she feels a little weak in her legs, but nothing focal neurologically. No bowel or bladder dysfunction symptoms. ; Denies paresthesias or weakness Psychiatric Psychiatric: Denies depression or suicidal thoughts EXAM Physical Exam Const Vital Signs: 10/25/22 00:31 10/25/22 03:25 10/25/22 05:21 Temperature 96.3 F L Temperature Source Temporal Pulse Rate 82 Respiratory Rate 18 18 18 Blood Pressure 140/90 H 138/68 H 137/70 H Blood Pressure Mean 106 91 92 Pulse Ox 93 94 95 Oxygen Delivery Method Room Air Positive well nourished and well developed General Appearance ED: well developed and NAD HEENT Reports moist mucous membranes normocephalic and atraumatic Eyes PERRL and EOMs intact bilaterally Neck no lymphadenopathy Neck Narrative: Diffuse posterior neck tenderness, paraspinal bilaterally and into trapezius bilaterally. Normal inspection. No bony tenderness or step-offs or deformities. Very limited range of motion does not want to move, she is able to flex her head down, but not bringing her chin all the way to the chest. She is able to extend some as well without severe discomfort. General: tenderness Chest Wall inspection of chest normal Resp normal respiratory effort and clear to auscultation bilaterally Cardio regular rate, regular rhythm and no murmurs GI non-tender and non-distended Auscultation: normoactive bowel sounds Palpation: soft Back/Spine no CVA tenderness Back/Spine Narrative: Diffuse bilateral superior aspect trapezius tenderness without any palpable subcutaneous or bony abnormality. General Back: other FROM but limited with regards to upper back due to pain Extremity normal to inspection General Extremety ED: Negative for edema, pulses abnormal or tenderness General Extremity: Negative for edema or pulses abnormal Neuro oriented x3, CN's II-XII intact bilaterally and no sensory deficits noted Sensorium / Orientation: awake and alert Motor Exam: strength 5/5 throughout Psych Psych Narrative: Anxious, angry, frustrated Skin no rashes or lesions noted and no wounds Skin Narrative: No skin lesions on the back MDM MDM MDM Narrative Medical decision making narrative: Differential here includes musculoskeletal etiologies, rheumatologic issues that would be difficult to rule in or out in the emergency department, deep space tissue infection, painful lymphadenopathy that I am not able to palpate due to obesity, mass, subarachnoid hemorrhage, and meningitis which is not an exhaustive list of possibilities. I advised the patient that I would recommend CT imaging, labs, and a lumbar puncture in order to evaluate for the dangerous possibilities in the differential here tonight. She has had no imaging before. She is amenable to some of this but does not want a spinal tap. I discussed the possibility of herpes/VZV meningitis given her recent zoster. She understood and after the imaging of the head and neck soft tissues returned basically negative for any obvious explanation for the symptoms, she was amenable to the LP which was performed without complications, see the procedure note. Results of the CSF are noted. She does have a high protein level, but everything else that came back soon after the procedure is normal including the white blood count, there are only a few red cells (there was a very brief amount of blood when CSF was first obtained, but it cleared very quickly), glucose is normal, and the Gram stain is showing no organisms. This argues against acute infection, but since the opening pressure was high at 27 and the protein was very high at 70, I discussed with Dr. Hamilton with infectious disease for his recommendations. He said since there are no white blood cells in the sample, it would be safe to assume there is no meningitis and to send her home with pain control. I advised close outpatient follow-up with her doctor, then I will send her home with prescriptions for analgesics and muscle relaxer, both of which helped her symptoms quite a bit here. Lab Data Attestation: I reviewed the patient's lab results. Labs: Laboratory Results - last 24 hr 10/25/22 10/25/22 10/25/22 01:11 01:11 04:00 WBC 9.2 RBC 4.35 Hgb 15.4 H Hct 45.5 MCV 104.6 H MCH 35.4 H MCHC 33.8 RDW Std Deviation 57.6 H RDW Coeff of Silvia 14.7 H Plt Count 244 MPV 9.6 Immature Gran % (Auto) 1.500 H Neut % (Auto) 61.4 Lymph % (Auto) 26.6 [place] % (Auto) 6.3 Eos % (Auto) 3.5 Baso % (Auto) 0.7 Absolute Neuts (auto) 5.6 Absolute Lymphs (auto) 2.44 Nucleated RBC % 0 Sodium 140 Potassium 4.0 Chloride 108 H Carbon Dioxide 24.0 Anion Gap 8 BUN 22 H Creatinine 1.04 H Estim Creat Clear Calc 47.79 Est GFR (MDRD) Af Amer 67 Est GFR (MDRD) Non-Af 56 L BUN/Creatinine Ratio 21.2 H Glucose 89 Calcium 9.1 Fld Polynuclear WBCs # Fld Polynuclear WBCs % Fluid Mononuclear WBCs Fld Mononuclear WBCs % CSF Appearance CSF Color CSF WBC CSF RBC CSF Cell Count Tube # CSF Total Cell Counted CSF Comment CSF Glucose 61 CSF Total Protein 70.0 H 10/25/22 04:00 WBC RBC Hgb Hct MCV MCH MCHC RDW Std Deviation RDW Coeff of Silvia Plt Count MPV Immature Gran % (Auto) Neut % (Auto) Lymph % (Auto) [place] % (Auto) Eos % (Auto) Baso % (Auto) Absolute Neuts (auto) Absolute Lymphs (auto) Nucleated RBC % Sodium Potassium Chloride Carbon Dioxide Anion Gap BUN Creatinine Estim Creat Clear Calc Est GFR (MDRD) Af Amer Est GFR (MDRD) Non-Af BUN/Creatinine Ratio Glucose Calcium Fld Polynuclear WBCs # 0.001 Fld Polynuclear WBCs % 0.0 Fluid Mononuclear WBCs 0.000 Fld Mononuclear WBCs % 100.0 CSF Appearance CLEAR CSF Color COLORLESS CSF WBC 1 CSF RBC 12 H CSF Cell Count Tube # 4 CSF Total Cell Counted TNP CSF Comment May follow CSF Glucose CSF Total Protein Radiography Diagnostic Testing: Clinical Impression(s) from Imaging Studies Brain CT 10/25/22 00:56 IMPRESSION: No acute intracranial abnormality. Electronically Signed: Aaron Cai DO at 2:13 EDT , Soft Tissue Neck CT 10/25/22 00:56 IMPRESSION: 1. Unopacified proximal left vertebral artery with normal opacification from C5-C6 to the basilar artery. Findings may represent stenosis of the proximal left vertebral artery versus occlusion with reconstitution distally. 2. Atrophic changes of the bilateral proximal internal carotid arteries with less than 50% stenosis. No evidence of carotid artery dissection. 3. No acute soft tissue or vertebral abnormality. Electronically Signed: Aaron Cai DO at 2:25 EDT , My interpretation of the CT agrees with that of the radiologist. I reviewed the CT images. Procedures Lumbar Puncture Consent/Risks: Consent for procedure obtained and Risks/Benefits/Alternatives Discussed Lumbar Puncture Description: Right, Lateral, Sterile Prep, Betadine Prep, Sterile Technique and L4-5 (Tolerated well no complications, total of 4 cc plain 1% lidocaine used for local anesthesia, neurologically intact after procedure.) Spinal Needle: 22ga w/ kit Sedation: n/a Opening Pressure: 27 cm H2O Fluid Color: clear & colorless Discharge Plan Triage Chief Complaint: Back ED Provider: Gurmeet Barillas Dx/Rx/DC Orders Clinical Impression: Acute neck pain, Headache Instructions: ED Neck Pain Prescriptions: New oxycodone-acetaminophen [oxycodone-acetaminophen] 5-325 mg tablet 1 tab PO Q6H PRN PRN (Reason: Pain) 3 Days Qty: 12 0RF orphenadrine citrate 100 mg tablet extended release 100 mg PO BID PRN (Reason: muscle spasm/pain) Qty: 14 0RF No Action aspirin 81 mg tablet,delayed release (DR/EC) 81 mg PO DAILY cholecalciferol (vitamin D3) 25 mcg (1,000 unit) capsule 25 mcg PO DAILY amlodipine 10 mg tablet 10 mg PO DAILY Qty: 90 3RF metoprolol tartrate 50 mg tablet 50 mg PO DAILY Qty: 90 3RF Primary Care Provider: Lubna Dey Referrals: Lubna Dey MD [Primary Care Provider] - 5-7 Days Disposition Disposition: Home, Self Care
[2022-10-25] MEDS: Ondansetron 4 MG/2 ML Vial IV (01:03)
[2022-10-25] MEDS: Morphine 4 MG/ML Syringe IV ×2 (01:03→03:12)
[2022-10-25] MEDS: Orphenadrine 60 MG/2 ML Ampul IV (01:03)
[2022-10-25 01:16] LABS: Absolute Lymphocyte Count 2.44 X10^3/uL (0.83-4.51); Absolute Neutrophil Count 5.6 X10^3/uL (2.0-7.7); Basophil# 0.06 X10^3/uL; Basophil% 0.7 % (0-1); Eosinophil# 0.32 X10^3/uL; Eosinophils% 3.5 % (0-5); Hematocrit 45.5 % (37-47); Hemoglobin 15.4 g/dL (12.0-15.0); Lymphocyte # 2.44 X10^3/ul (0.83-4.51); Lymphocyte % 26.6 % (19-41); Mean Corp Hgb Conc 33.8 g/dL (32-36); Mean Corpuscular Hgb 35.4 pg (27.0-32.0); Mean Corpuscular Volume 104.6 fL (81-99); Mean Platelet Vol. 9.6 fl (6.2-12.0); Monocyte# 0.58 X10^3/uL; Monocyte% 6.3 % (0-10); NRBC Flagged by Analyzer 0 % (0-5); Neutrophil # 5.62 X10^3/uL (2.7-7.7); Neutrophil % 61.4 % (47-70); Platelet Count 244 K/mm3 (150-450); RBC Distribution Width CV 14.7 % (11.6-14.6); RBC Distribution Width SD 57.6 fl (35.1-43.9); Red Blood Count 4.35 M/mm3 (4.2-5.4); White Blood Count 9.2 K/mm3 (4.4-11.0)
[2022-10-25 01:46] LABS: Anion Gap 8 (5-15); BUN 22 mg/dL (7-18); BUN/Creat Ratio 21.2 RATIO (10-20); Calcium,Total 9.1 mg/dL (8.5-10.1); Chloride 108 mmol/L (98-107); Creatinine, Serum 1.04 mg/dL (0.55-1.02); EST Glomerular Filtration Rate 56 mL/min (>60); Est Glom Filt Rate - Afr Amer 67 mL/min (>60); Estimated Creatinine Clearance 47.79 ml/min; Glucose 89 mg/dL (74-106); Sodium Level 140 mmol/L (136-145)
[2022-10-25 03:25] VITALS: BP 138/68; RESP 18; O2SAT 94
[2022-10-25 04:20] LABS: Glucose Spinal Fluid 61 mg/dL (40-75)
[2022-10-25 04:24] LABS: Appearance CSF (character) CLEAR (Clear); CSF Color COLORLESS (Colorless); Tested Tube # 4
[2022-10-25 04:25] LABS: Auto B Fluid Analyzer BKGD Ct COUNTS W/IN LIMITS (W/IN LIMITS)
[2022-10-25 04:56] LABS: Body Fluid QC Type(s) BF1Q
[2022-10-25 05:06] LABS: White Count, CSF 1 /mm-3 (0 - 5)
[2022-10-25 05:07] LABS: Body Fluid Polynuclear WBC # 0.001 10^3/uL; RBC Count, Spinal Fluid 12 /mm-3 (None seen)
[2022-10-25 05:21] VITALS: BP 137/70; RESP 18; O2SAT 95
[2022-10-26 09:22] LABS: Pathologist Review Reviewed
== END 2022-10-25 06:34 | disposition home or self-care (01) ==
PROVIDERS: Emergency Provider Emergency Medicine; PCP Internal Medicine; Visit Provider Emergency Medicine
DX: M54.2 Cervicalgia (principal); R51.9 Headache, unspecified; I10 Essential (primary) hypertension; F17.200 Nicotine dependence, unspecified, uncomplicated; Z79.82 Long term (current) use of aspirin
CPT/HCPCS: 62270; 70450; 70491; 80048; 82945; 84157; 85025; 87070; 87205; 87529; 87798; 89050; 89051; 96361; 96374; 96375; 96376; 99283; J7040; Q9967; A4216; J2405

== ENCOUNTER → 2023-06-11 | Outpatient (CLI) | payer MEDICARE, SELFPAY ==
--- NOTE | 2023-06-11 08:55 | CDU_ITS ---
Reason For Study: Atherosclerosis Rt. Velocities/BP Lt. Velocities/BP Prox CCA 106.3/15.5 cm/sec. Prox CCA 88.7/19.4 cm/sec. Mid CCA 53.5/11.9 cm/sec. Mid CCA 88.7/13.9 cm/sec. Dist CCA 68.3/15.4 cm/sec. Dist CCA 92.4/19.4 cm/sec. Prox ICA 74.0/22.0 cm/sec. Prox ICA 127.1/30.3 cm/sec. Mid ICA 61.7/17.3 cm/sec. Mid ICA 74.4/19.1 cm/sec. Dist ICA 53.0/18.0 cm/sec. Dist ICA 63.3/15.5 cm/sec. Rt. ICA/CCA = 1.4. Lt. ICA/CCA = 1.4. Prox ECA 84.4/12.6 cm/sec. Prox ECA 75.6/13.0 cm/sec. Rt. Vert. 43.0/15.3 cm/sec. Lt Vert. - Unable to visualize. Right Extracranial There is heterogeneous, irregular atherosclerotic plaque noted in the right common carotid artery. The right common carotid artery is tortuous. There is heterogeneous, irregular atherosclerotic plaque noted in the right internal carotid artery. There is intimal thickening but no significant atherosclerotic plaque noted in the right external carotid artery. Antegrade flow is noted in the right vertebral artery. Left Extracranial There is heterogeneous, irregular atherosclerotic plaque noted in the left common carotid artery. The left common carotid artery is tortuous. There is heterogeneous, irregular atherosclerotic plaque noted in the left internal carotid artery. The left internal carotid artery is very tortuous. There is heterogeneous, irregular atherosclerotic plaque noted in the left external carotid artery. The left vertebral artery could not be visualized. Procedure Carotid Duplex [id number]. This is a Carotid Duplex examination using B-mode, color flow and specral Doppler. The exam was diagnostic. Exam performed in department. VL/Carotid Duplex Ultrasound Interpretation Summary Mild (<50%) stenosis right extracranial internal carotid. Moderate (50-69%) juan nosis left extracranial internal carotid. Flow within the right verterbral artery is anteg rade. Left vertebral not seen. Ordering Physician: Ilia Odom Referring Physician: Lubna Dey Performed By: Ramses Everett RVT
--- NOTE | 2023-06-11 08:55 | ART_ITS ---
Reason For Study: Atherosclerosis Procedure A bilateral lower extremity continuous wave Doppler with analog waveform analysis and ankle brachial indexes. Left Segmental Pressures Left brachial= 163mmHg. Left posterior tibial artery = 160mmHg. Left dorsalis pedis artery = 178mmHg. The left posterior tibial artery waveforms are triphasic. The left dorsalis pedis waveforms are triphasic. Right Segmental Pressures Right brachial= 177mmHg. Right posterior tibial artery = 178mmHg. Right dorsalis pedis artery = 183mmHg. The right posterior tibial artery waveforms are triphasic. The right dorsalis pedis waveforms are triphasic. Indices The right ankle brachial index by the posterior tibial artery is 1.01. The right ankle brachial index by the dorsalis pedis is 1.03. The left ankle brachial index by the posterior tibial artery is 0.90. The left ankle brachial index by the dorsalis pedis is 1.01. VL/Ankle Brachial Index Interpretation Summary Bilateral legs normal at rest with EMILIE 1.03 and 1.01. Ordering Physician: Ilia Odom Referring Physician: Lubna Dey Performed By: Ramses Everett RVT
[2023-06-11 10:56] LABS: BUN 14 mg/dL (7-18); Creatinine, Serum 0.87 mg/dL (0.55-1.02); EST Glomerular Filtration Rate 69 mL/min (>60); Est Glom Filt Rate - Afr Amer 83 mL/min (>60)
== END | disposition home or self-care (01) ==
PROVIDERS: PCP Internal Medicine; Referring Provider Surgery Vascular Surgery; Visit Provider Surgery Vascular Surgery
DX: I65.23 Occlusion and stenosis of bilateral carotid arteries (principal); I70.213 Atherosclerosis of native arteries of extremities with intermittent claudication, bilateral legs; I10 Essential (primary) hypertension; F17.200 Nicotine dependence, unspecified, uncomplicated
CPT/HCPCS: 36415; 82565; 84520; 93880; 93922

== ENCOUNTER → 2023-07-02 | Outpatient (CLI) | payer MEDICARE, SELFPAY ==
--- NOTE | 2023-07-02 13:41 | CT_ITS ---
INDICATION: AAA EXAMINATION: CTA abdomen and pelvis - TECHNIQUE: Routine abdominal CT angiogram protocol was performed with IV contrast. MIP images provided. A radiation dose optimization technique was used for this scan. IV Contrast dosage and agent: 100 cc of Isovue-370 RADIATION DOSAGE (If Supplied By Facility): CTDIvol = ( 27.36 ) mGy, DLP = ( 929.99 ) mGycm COMPARISON: Prior study dated: 06/07/2022. FINDINGS: Aorta: Fusiform infrarenal abdominal aortic aneurysm measuring up to 5.5 cm in AP diameter, previously measured 5.2 cm in transverse diameter with peripheral mural thrombus. 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 Previously measured 3.5 cm. Mild atherosclerotic calcifications of the origin of the celiac axis and SMA without significant stenosis. Probable mild narrowing at the origin of the right renal artery. Inferior mesenteric artery is not definitely identified. Lung bases: Partially visualized breast implants. Mild stranding/scarring in the lingula. Normal heart size. Liver: Hepatic steatosis. Enhancing mass in the right lower liver central density could represent contrast or calcification. Hemangioma is suspected. Gallbladder: Normal. Spleen: Normal. Adrenal gland: Normal. Kidneys: Stable 2 cm simple cyst in the lower pole of the left kidney for which no further follow-up exam is needed. Pancreas:Normal. Bowel gas pattern: The gastric antrum is not well distended and difficult to evaluate on this exam. Normal caliber small bowel loops. Colonic diverticulosis without evidence of acute diverticulitis. Appendix: Unremarkable. Free air: None. Free fluid: None. Pelvis: Pelvic organs: Absent uterus consistent with previous hysterectomy. Bone survey: Degenerative changes of the spine. Adenopathy: No significant pathologic adenopathy detected. CT/CTA Abd/Pelvis W/WO Contrast IMPRESSION: 1. Infrarenal abdominal aortic aneurysm as described above slightly larger in size than the previous exam. Vascular surgery consultation is recommended. 2. Essentially stable or slightly larger in size left common iliac artery aneurysm. 3. Otherwise no significant change since the previous exam. Electronically Signed: Phil Lyon MD at 15:12 EST ,
--- OUTSIDE RECORDS SUMMARY | 2023-07-02 14:55 | XMS RPT_ITS | CCD ---
Author Name Unknown Address [address] [place] [address] Organization [facility] Care Team Providers Care Polisher Eyeglass Frames Name Role Phone [facility] Unavailable Unavailable Results Test Name Value Interpretation Reference Range Facil ity Encounters Encounter Date Encounter Type Care Provider Facility Start: 04-22-2018 End: 04-22-2018 Patient encounter procedure [facility] Facility:B Payers Date Payer Category Payer Medicare [id number] 1950 Unknown [id number] Progress note 10-18-2020 Note Date & Type Note Facility 10-18-2020 Note HNO ID: [id number] Author: Johann Westfall) Sandra Service: ? Author Type: Physician Type: Progress Notes Filed: 10/18/2020 1:24 PM Note Text: Chief Complaint Patient presents with: ED Follow-up HPI Alondra Estrada is a 69 year old female who presents here today for new limited ER Follow Up.. Patient evaluated at [facility] ED on 10/13 for complaint of left flank pain which started 1 week prior. Workup positive for signs of UTI, hypokalemia, And infrarenal AAA at 4.5 cm with mural thrombus and aneurysm of left common iliac artery at 3 cm. Findings discussed with Dr. Odom who recommended she f/u as outpatient. Given Rocephin, Morphine, and Zofran IV and discharged home with rx for Keflex and [place]. Since discharge, Patient has been taking Keflex QID as prescribed without hematuria, dysuria, frequency, urgency. Notes her urine color has improved and is now clear and left flank pain is improving. Denies fever, nausea, vomiting, abdominal pain. States that she has taken all 10 pills of her [place] for pain. Has tried tylenol without relief. Currently 2/10 pain in left flank without radiation. She has appointment with Dr. Odom scheduled on 11/17 for AAA and iliac artery aneurysm. Noted significantly elevated BP today with reported history of HTN. Not on antihypertensives at this time. Denies headache, chest pain, SOB, palpitations, LE swelling, vision changes. Past medical history, appointments, medications, allergies reviewed. Previous Medical History PAST MEDICAL HISTORY Diagnosis Date - Psychiatric disorder depression Previous Surgical History PAST SURGICAL HISTORY Procedure Laterality Date - REM LESION FACE,EAR,EYE 2.1-3 CM 03/03/08 EXCISION LESION FACE performed by [facility]NG[facility] at [facility] - TONSILLECTOMY HX Family History No family history on file. Patient Allergies ALLERGIES No Known Allergies Current Medications Current Outpatient Medications on File Prior to Visit Medication Sig - sertraline (ZOLOFT) 100 mg tablet Take 200 mg by mouth once daily. (Patient not taking: Reported on 10/18/2020 ) - NAPROXEN SODIUM (ALEVE ORAL) Take by mouth as needed. - oxyCODONE-acetaminophen 5-325 mg tablet Take 1 tablet by mouth every 4 hours as needed. (Patient not taking: Reported on 08/09/2020) No current facility-administered medications on file prior to visit. Social History Social History Tobacco Use - Smoking status: Current Every Day Smoker Packs/day: 0.50 Types: Cigarettes - Smokeless tobacco: Never Used Substance Use Topics - Alcohol use: Yes Comment: 2 drinks atleast daily - Drug use: No Review of Symptoms REVIEW OF SYSTEMS See HPI EXAM: Pulse 70 Resp 18 Wt 76.2 kg (168 lb) SpO2 94% BMI 27.12 kg/m? General Appearance: Well appearing, alert, in no acute distress, well-hydrated, well nourished.. Skin: Confluent erythematous maculopapular rash on right hammond without vesicles or pustules. Small patches of flaking skin without plaques. . Lungs: Lungs clear to auscultation. No wheezing, rhonchi, rales.. Heart: RRR without murmur, gallop, or rubs. No ectopy. Abdomen: Normal abdominal exam, Abdomen soft, non-tender. Bowel sounds normal. No masses, organomegaly. Extremities: No deformities, edema, skin discoloration, clubbing or cyanosis. Good capillary refill. . Health Maintenance List DEPRESSION SCREENING Never done HEPATITIS C SCREENING Never done MAMMOGRAM Never done LIPID SCREEN Never done DIABETES SCREEN Never done COLORECTAL CANCER SCREENING Never done SHINGRIX VACCINE(1 of 2) Never done BONE DENSITY Never done ADVANCE DIRECTIVE DISCUSSION Never done PNEUMOVAX AGE 65 AND OVER WITH 5YR LOOKBACK(1) Never done INFLUENZA(Season Ended) due on 02/23/2021 DTAP,TDAP,TD(2 - Td or Tdap) due on 04/24/2023 MENINGOCOCCAL CONJUGATE Aged Out ASSESSMENT/PLAN: 1. Acute left flank pain - ICD9: 789.09, 338.19, ICD10: R10.9 (primary diagnosis) Improving on Keflex. Finish abx as prescribed. May take OTC analgesics PRN for pain. Call with recurrent/worsening symptoms. - COMP METABOLIC PANEL 2. Acute cystitis without hematuria - ICD9: 595.0, ICD10: N30.00 Improving on Keflex. 3. Hypertensive urgency - ICD9: 401.9, ICD10: I16.0 BP significantly elevated without signs of end organ damage. Recommended repeat ER evaluation and treatment with IV anti-hypertensives to bring BP <160/100 before discharge home. Report sent to [facility] ED recommending HCTZ and lisinopril on discharge. Patient refusing EMS, will drive self to ER. 4. Hypokalemia - ICD9: 276.8, ICD10: E87.6 Recheck level in our lab or at [facility] ED. - COMP METABOLIC PANEL 5. Iliac aneurysm (HCC) - ICD9: 442.2, ICD10: I72.3 Keep scheduled f/u with Dr. Odom. 6. Abdominal aortic aneurysm (AAA) without rupture (HCC) - ICD9: 441.4, ICD10: I71.4 Keep scheduled f/u with Dr. Odom. 7. Rash - ICD9: 782.1, ICD10: R21 Start moderate potency steroid for possible (more content not included)... [facility] Progress note 08-09-2020 Note Date & Type Note Facility 08-09-2020 Note HNO ID: [id number] Author: Bakari Aragon Service: ? Author Type: Physician Type: Progress Notes Filed: 08/09/2020 3:19 PM Note Text: Initial Podiatric Office Visit: Chief Complaint: This 69 year old female who presents with chief complaint:aaron of b/l legs HPI Patient presents to clinic with complaint of rash to anterior legs. She states the rash has been present for over one year. She was seen by a woods boss in [place] in the summer. She was initially treated with Laser other than caused her a burn. Patient states she stopped going to dermatology because she did not feel she was getting better. Patient states she never was given a cream. Patient states that her daughter provided her with steroid cream and that has helped with the rash. Patient has used clobetasol and that has helped. Patient states that the rash starts between the toes and works its way up to the heels. Patient also states the rash causes itching. Patient also complains of thick discolored toenails that cause her pain due to thickness. Patient does smoke 5-6 cigarettes/day. PAIN EVALUATION No data found in the last 1 encounters. No results found for: HBA1C PCP: Venkat Clancy MD PAST MEDICAL HISTORY Diagnosis Date - Psychiatric disorder depression Current Outpatient Medications Medication Sig - sertraline (ZOLOFT) 100 mg tablet Take 200 mg by mouth once daily. - NAPROXEN SODIUM (ALEVE ORAL) Take by mouth as needed. - oxyCODONE-acetaminophen 5-325 mg tablet Take 1 tablet by mouth every 4 hours as needed. (Patient not taking: Reported on 08/09/2020) No current facility-administered medications for this visit. ALLERGIES No Known Allergies PAST SURGICAL HISTORY Procedure Laterality Date - REM LESION FACE,EAR,EYE 2.1-3 CM 03/03/08 EXCISION LESION FACE performed by [facility] at [facility] - TONSILLECTOMY HX No family history on file. Social History Tobacco Use - Smoking status: Current Every Day Smoker Packs/day: 0.50 Types: Cigarettes - Smokeless tobacco: Never Used Substance Use Topics - Alcohol use: Yes Comment: 2 drinks atleast daily - Drug use: No REVIEW OF SYSTEMS GENERAL: Negative for Malaise, significant weight loss, fever RESPIRATORY: Negative for cough, wheezing and shortness of breath CARDIOVASCULAR: Negative for chest pain, leg swelling and palpitations GI: Negative for abdominal discomfort, blood in stools or black stools and change in bowel habits : Negative for dysuria, frequency and incontinence MUSCULOSKELETAL: Negative for joint pain or swelling, back pain, and muscle pain. SKIN: Negative for lesions, rash, and itching. HEMATOLOGY/LYMPHOLOGY Negative for prolonged bleeding, bruising easily, and swollen nodes. ENDOCRINE: Negative for cold or heat intolerance, polyuria, polydipsia and goiter. NEURO: negative Physical Exam: Constitutional: Pt is a well developed 69 year old female who is alert, oriented and cooperative Eyes: Following during examination. No redness or drainage. Respiratory: RR normal and nonlabored. Even breathing. No evidence of distress or shortness of breath. Psychology: Patient is engaged during conversation. Normal affect and mood. Does not appear depressed or anxious during encounter. Vascular: Dorsalis pedis and posterior tibial pulses palpable as b/l Capillary Fill time < 5 seconds to digits 1-5 b/l Skin temperature warm to warm proximal to distal b/l Hair growth present to digits Neurological: intact light touch/epicritic sensation b/l intact protective sensation no significant neurological deficits Dermatological: Nails 1-5 b/l appear thick, discolored, painful. Webspaces clean and dry 1-4 b/l. Skin appears well hydrated and supple. good color, texture, turgor. No open lesions present. No callosities present. No rash present currently Musculoskeletal/Orthopaedic: Patient has pain to palpation of toenails Foot type is neutral structurally AJ ROM is full with knee extended and flexed 1st MPJ is full when loaded and no pain or crepitus are noted with ROM. MTJ, STJ are full and free of pain and crepitus. +5/5 muscle strength dorsiflexion, plantarflexion, inversion, eversion b/l Radiographs: n/a ASSESSMENT: (L30.9) Dermatitis (primary encounter diagnosis) (B35.1) Onychomycosis (M79.675) Pain in toe of left foot (M79.674) Pain in toe of right foot (Z00.00) Routine health maintenance PLAN: 1. History and physical examination performed. 2. Discussed past rash of b/l foot and legs. No rash currently Recommend lotion to feet. If rash returns, I will have her use lotrisone that was prescribed. 3. We discussed the possible etiologies of discolored, dystrophic, and thickened nails including fungus, yeast, mold as well as in some instances, prior trauma, or mechanical causes such as repetitive microtrauma in shoe gear. We discussed topical medication for discolored toenails (more content not included)... [facility] Progress note 08-09-2020 Note Date & Type Note Facility 08-09-2020 Note HNO ID: [id number] Author: Dorie Gresham RN Service: ? Author Type: ? Type: Progress Notes Filed: 08/09/2020 3:19 PM Note Text: AMB ROOMING INTAKE FLOWSHEET DATA Risk Screening Do you have concerns about personal safety or safety in the home?: No Patient presents with: Left Ankle - New Patient, Rash Right Ankle - New Patient, Rash C/o rash to B/L ankles that has gone up both shins x 6 months. She has been to dermatology and used various creams without success. Rash itches. [facility] Summary Purpose Family History No Family History Records FoundNo Family History Records Found Advance Directives No Advanced Directives Records FoundNo Advanced Directives Records Found Additional Source Comments INFORMATION SOURCE (unrecogn ized section and content) DATE CREATED AUTHOR AUTHOR'S ORGANIZ ATION 07/22/2021 [facility] FOR RECORDS PERTAINING TO PATIENTS WHO ARE OR HAVE BEEN ENROLLED IN A CHEMICAL DEPENDENCY/SUBSTANCEABUSE PROGRAM, SOME INFORMATION MAY BE OMITTED. This clinical summary was aggregated from multiple sources. Caution should be exercised in using it in the provision of clinical care. This summary normalizes information from multiple sources, and as a consequence, information in this document may materially change the coding, format and clinical context of patient data. In addition, data may be omitted in some cases. CLINICAL DECISIONS SHOULD BE BASED ON THE PRIMARY CLINICAL RECORDS. [employer] provides no warranty or guarantee of the accuracy or completeness of information in this document.
== END | disposition home or self-care (01) ==
LOC: CT 13:38
PROVIDERS: PCP Internal Medicine; Referring Provider Surgery Vascular Surgery; Visit Provider Surgery Vascular Surgery
DX: I71.43 Infrarenal abdominal aortic aneurysm, without rupture (principal); I70.1 Atherosclerosis of renal artery; I70.213 Atherosclerosis of native arteries of extremities with intermittent claudication, bilateral legs; F17.200 Nicotine dependence, unspecified, uncomplicated; I65.23 Occlusion and stenosis of bilateral carotid arteries; I10 Essential (primary) hypertension; E07.9 Disorder of thyroid, unspecified
CPT/HCPCS: 74174; Q9967; A4216

== ENCOUNTER → 2024-06-30 | Outpatient (CLI) | payer MEDICARE, SELFPAY ==
--- NOTE | 2024-06-30 12:34 | RAD_ITS ---
INDICATION: left atelectasias EXAMINATION/TECHNIQUE: X-RAY - XR Chest 2 Views COMPARISON: CT of the abdomen and pelvis dated July 02, 2023 FINDINGS: LINES/DEVICES: None. LUNGS: There is a moderate-sized left pleural effusion. There is minimal right basilar atelectasis and/or scarring that appears stable. No pneumothorax. MEDIASTINUM AND CARDIOVASCULAR STRUCTURES: Cardiac silhouette not enlarged. Central airways and mediastinal contour are unremarkable. BONES AND SOFT TISSUES: Unremarkable. RAD/Chest PA and Lateral IMPRESSION: Left pleural effusion, cannot exclude associated left basilar consolidation. Electronically Signed: Diana Olea MD at 13:22 EST ,
[2024-06-30 15:38] LABS: Absolute Lymphocyte Count 0.98 X10^3/uL (0.83-4.51); Absolute Neutrophil Count 4.9 X10^3/uL (2.0-7.7); Basophil# 0.05 X10^3/uL; Basophil% 0.7 % (0-1); Eosinophil# 0.36 X10^3/uL; Eosinophils% 5.2 % (0-5); Hematocrit 37.4 % (37-47); Lymphocyte # 0.98 X10^3/ul (0.83-4.51); Lymphocyte % 14.1 % (19-41); Mean Corp Hgb Conc 32.1 g/dL (32-36); Mean Corpuscular Hgb 29.5 pg (27.0-32.0); Mean Corpuscular Volume 91.9 fL (81-99); Mean Platelet Vol. 10.3 fl (6.2-12.0); Monocyte# 0.55 X10^3/uL; Monocyte% 7.9 % (0-10); NRBC Flagged by Analyzer 0 % (0-5); Neutrophil # 4.93 X10^3/uL (2.7-7.7); Neutrophil % 70.8 % (47-70); Platelet Count 408 K/mm3 (150-450); RBC Distribution Width CV 14.2 % (11.6-14.6); RBC Distribution Width SD 47.7 fl (35.1-43.9); Red Blood Count 4.07 M/mm3 (4.2-5.4)
[2024-06-30 16:16] LABS: ALB/GLOB Ratio 0.8 RATIO (0.9-2.4); AST(SGOT) 15 U/L (15-37); Alanine Aminotransfer ALT/SGPT 9 U/L (13-56); Albumin, Serum 3.3 g/dL (3.2-5.0); Alkaline Phosphatase 98 U/L (45-117); Anion Gap 10 (5-15); BUN 11 mg/dL (7-18); BUN/Creat Ratio 10.7 RATIO (10-20); Calcium,Total 9.7 mg/dL (8.5-10.1); Chloride 104 mmol/L (98-107); Cholesterol 220 mg/dL (200); Creatinine, Serum 1.03 mg/dL (0.55-1.02); EST Glomerular Filtration Rate 56 mL/min (>60); Est Glom Filt Rate - Afr Amer 68 mL/min (>60); Globulin 4.1 g/dL (2.2-4.2); Glucose 74 mg/dL (74-106); High Density Lipoprotein 40 mg/dL; Potassium 2.8 mmol/L (3.5-5.1); Protein, Total 7.4 g/dL (6.4-8.2); Sodium Level 141 mmol/L (136-145); Triglycerides 158 mg/dL; Very Low Density Lipoprotein 32 mg/dL (5-40)
[2024-06-30 16:19] LABS: Vitamin D,25 Hydroxy 49.9 ng/mL
== END | disposition home or self-care (01) ==
LOC: MTLAB 12:33
PROVIDERS: PCP Internal Medicine; Referring Provider Internal Medicine; Visit Provider Internal Medicine
DX: J98.11 Atelectasis (principal); E55.9 Vitamin D deficiency, unspecified; I71.40 Abdominal aortic aneurysm, without rupture, unspecified; I10 Essential (primary) hypertension; E87.6 Hypokalemia; R79.89 Other specified abnormal findings of blood chemistry; R71.8 Other abnormality of red blood cells; E78.5 Hyperlipidemia, unspecified; Z13.220 Encounter for screening for lipoid disorders
CPT/HCPCS: 36415; 71046; 80053; 80061; 82306; 84443; 85025

== ENCOUNTER → 2024-07-17 | Outpatient (CLI) | payer MEDICARE, SELFPAY ==
--- NOTE | 2024-07-17 13:55 | CT_ITS ---
EXAM: CT CHEST WITHOUT INTRAVENOUS CONTRAST CLINICAL INDICATION: Left pleural effusion, atelectasis -- Post AAA repair left side approach TECHNIQUE: Helically acquired images were obtained of the chest without intravenous contrast. CTDIvol = ( 9.89 ) mGy, DLP = ( 351.03 ) mGycm This CT exam was performed using one or more of the following dose reduction techniques: automated exposure control, adjustment of the mA and/or kV according to patient size, and/or use of iterative reconstruction technique. COMPARISON: No relevant prior studies available. FINDINGS: LUNGS AND PLEURAL SPACES: Calcified granuloma at the left lower lobe posteriorly. Partial collapse of left lower lobe with elevated left hemidiaphragm. Azmc-zv-[id number] centrilobular emphysema. Right lung is clear. Small to moderate-sized left pleural effusion. No mass. No pneumothorax. HEART: Moderate to severe multivessel calcific coronary arteriolosclerosis. No cardiomegaly or significant pericardial effusion. MEDIASTINUM: Calcified lymph nodes involving the left hilum and infrahilar region. No mediastinal or hilar adenopathy. Esophagus is unremarkable. No hiatal hernia. THYROID: Unremarkable. No thyroid lesions. BONES/JOINTS: Multilevel spine degenerative changes. Diffuse osteopenia. No unusual lytic or sclerotic lesions of bone. VASCULATURE: Unremarkable. Thoracic aorta is non-dilated. OTHER FINDINGS: No critical central canal stenosis. CT/Chest without Contrast IMPRESSION: 1. Partial collapse of left lower lobe with elevated left hemidiaphragm. 2. Small to moderate-sized left pleural effusion. 3. Emphysema and old granulomas disease. Electronically Signed: Preston Michel MD at 18:56 EST ,
== END | disposition home or self-care (01) ==
LOC: CT 13:54
PROVIDERS: PCP Internal Medicine; Referring Provider Internal Medicine; Visit Provider Internal Medicine
DX: J90 Pleural effusion, not elsewhere classified (principal)
CPT/HCPCS: 71250

== ENCOUNTER → 2024-09-03 | Outpatient (CLI) | payer MEDICARE, SELFPAY ==
--- NOTE | 2024-09-03 13:54 | CDU_ITS ---
Reason For Study Reason For Study: Stenosis Rt. Velocities/BP Lt. Velocities/BP Prox CCA 66.1/4.5 cm/sec. Prox CCA 68.3/12.6 cm/sec. Mid CCA 69.6/11.3 cm/sec. Mid CCA 75.9/14.5 cm/sec. Dist CCA 33.4/9.9 cm/sec. Dist CCA 41.9/8.8 cm/sec. Prox ICA 40.1/9.5 cm/sec. Prox ICA 91.2/24.9 cm/sec. Mid ICA 53.6/15.2 cm/sec. Mid ICA 106.5/22.5 cm/sec. Dist ICA 41.3/12.3 cm/sec. Dist ICA 46.9/13.1 cm/sec. Rt. ICA/CCA = 0.8. Lt. ICA/CCA = 1.4. Prox ECA 70.2/7.8 cm/sec. Prox ECA 55.1/8.8 cm/sec. Rt. Vert. 37.1/10.5 cm/sec. Lt. Vert. 60.8/6.0 cm/sec. Right Extracranial There is heterogeneous, irregular atherosclerotic plaque noted in the right common carotid artery. There is heterogeneous, irregular atherosclerotic plaque noted in the right internal carotid artery. There is intimal thickening but no significant atherosclerotic plaque noted in the right external carotid artery. Antegrade flow is noted in the right vertebral artery. Left Extracranial There is heterogeneous, irregular atherosclerotic plaque noted in the left common carotid artery. There is heterogeneous, irregular atherosclerotic plaque noted in the left internal carotid artery. The atherosclerotic plaque causes acoustic shadowing. There is intimal thickening but no significant atherosclerotic plaque noted in the left external carotid artery. Antegrade flow is noted in the left vertebral artery. Procedure Carotid Duplex [id number]. This is a Carotid Duplex examination using B-mode, color flow and specral Doppler. Exam performed in department. VL/Carotid Duplex Ultrasound Interpretation Summary Mild (<50%) stenosis right extracranial internal carotid. Mild (<50%) stenosis left extracranial internal carotid. Ordering Physician: Ilia Odom Referring Physician: Lubna Dey M.D. Performed By: Farrah Rooney RVT and Student
== END | disposition home or self-care (01) ==
LOC: CVS 13:52
PROVIDERS: PCP Internal Medicine; Referring Provider Surgery Vascular Surgery; Visit Provider Surgery Vascular Surgery
DX: I65.23 Occlusion and stenosis of bilateral carotid arteries (principal); I10 Essential (primary) hypertension; F17.200 Nicotine dependence, unspecified, uncomplicated
CPT/HCPCS: 93880

== ENCOUNTER 2024-09-06 11:28 | Observation (INO) | payer MEDICARE, SELFPAY ==
[2024-09-06] VITALS (16 sets, daily range): BP systolic 93–163; BP diastolic 49–86; PULSE 62–81; RESP 14–22; TEMP 36.3–37.1; O2SAT 83–98; BMI 24.2; BMI 25.7
--- NOTE | 2024-09-06 12:04 | EDS_ITS ---
HPI HPI - GI History of Present Illness Chief Complaint: Abd Pain Informant: patient Abdominal Pain/Flank Pain Onset: Days (2) Context: Gradual Onset Timing: Continuous Quality: Burning and Dull Location: RUQ and RLQ Worsened by: Nothing Relieved by: Nothing Nausea/Vomiting/Emesis GI Symptom: Positive for Nausea; Negative for Vomiting Onset: Days Diarrhea/Melena/Hematochezia GI Symptom: Negative for Diarrhea, Melena or Hematochezia Associated Symptoms Associated Symptoms: Positive for Frequency; Negative for Dysuria or Hematuria Narrative Narrative: Patient presents with abdominal pain that has been getting worse over the past 2 days. Patient states it is gradually getting worse. Patient states it started as a diffuse abdominal pain but is now in the right side of her abdomen. Patient describes it as dull and burning. Patient states it has been constant. Patient states nothing makes it better and nothing makes it worse. Patient admits to some nausea and decreased appetite. Patient denies any vomiting. Patient denies any diarrhea, melena, or hematochezia. Patient admits to some urinary frequency but denies any dysuria or hematuria. Patient had a recent aortic aneurysm repair on 05/27/2024. [facility] Medical History Pleural effusion on left Atelectasis of left lung Postoperative urinary retention Situational insomnia Chronic anxiety Preop exam for internal medicine Acute bronchitis, unspecified COVID-19 Contact with and (suspected) exposure to other viral communicable diseases Elevated MCV Elevated hemoglobin Hypokalemia Enlarged thyroid gland Uncontrolled hypertension Breast lump Hearing problem AAA (abdominal aortic aneurysm) Rash Knee pain, chronic Hay fever Hemorrhoids HTN (hypertension) Home Medications ?Medication ?Instructions ?Recorded ?Last Taken ?Type aspirin 81 mg tablet,delayed 81 mg PO QDAY 07/28/24 Un known History release (Adult Low Dose Aspirin) metoprolol tartrate 50 mg tablet 25 mg (1/2 x 50 mg) P O DAILY #90 07/28/24 Unknown Rx tabs Allergy/AdvReac Type Severity Reaction Status Date / Time NSAIDS (Non-Steroidal AdvReac Nausea Verified 09/06/24 11:32 Anti-Inflamma Family History Other Anxiety with depression Arthritis Asthma Diabetes Hyperlipemia Hypertension Surgical History Status post AAA (abdominal aortic aneurysm) repair History of AAA (abdominal aortic aneurysm) repair Cataract fragments in eye following surgery Social History Smoking Status: Current every day smoker tobacco type: cigarettes alcohol intake: current alcohol intake frequency: holidays/special occasions only substance use type: does not use ROS ROS ED Constitutional Constitutional ED: Denies chills or fever(s) Eyes Eyes: Denies blurry vision or change in vision ENT ENT ED: Denies rhinorrhea or sore throat Cardiovascular Cardiovascular: Denies chest pain or palpitations Respiratory/Chest Respiratory/Chest: Reports cough; Denies dyspnea Gastrointestinal Gastrointestinal: Denies nausea or vomiting Genitourinary Genitourinary ED: Denies dysuria or hematuria Musculoskeletal Musculoskeletal: Reports back pain; Denies neck pain Integumentary Reports rash; Denies abscess Neurologic Neurologic: Denies headache(s) or weakness Allergic/Immunologic Allergic/Immunologic ED: Denies mouth swelling or urticaria EXAM Physical Exam Const Vital Signs: 09/06/24 11:29 09/06/24 12:26 09/06/24 12:26 Temperature 97.4 F L Temperature Source Oral Pulse Rate 81 Respiratory Rate 16 Blood Pressure 158/86 H Blood Pressure Mean 110 Pulse Ox 95 83 91 Oxygen Delivery Method Room Air Room Air Nasal Cannula Oxygen Flow Rate (L/min) 2 09/06/24 14:00 09/06/24 14:27 Temperature Temperature Source Pulse Rate 72 Respiratory Rate 22 H Blood Pressure 163/70 H Blood Pressure Mean 101 Pulse Ox 96 95 Oxygen Delivery Method Room Air Nasal Cannula Oxygen Flow Rate (L/min) 2 Positive well nourished and well developed General Appearance ED: well developed and NAD HEENT Reports moist mucous membranes Neck supple and no JVD Resp normal respiratory effort and clear to auscultation bilaterally Cardio regular rate and regular rhythm GI non-distended Palpation: soft and tender RLQ, RUQ and periumbilical Neuro CN's II-XII intact bilaterally, moves all extremities and no sensory deficits noted Sensorium / Orientation: alert Motor Exam: strength 5/5 throughout Psych mental status grossly normal MDM MDM MDM Narrative Medical decision making narrative: Differential diagnosis includes appendicitis, cholecystitis, cholelithiasis, aortic dissection, aneurysmal leak, pancreatitis, bowel obstruction, perforation, gastroenteritis, and electrolyte abnormality. CT scan of the abdomen and pelvis will be obtained to assess for appendicitis, cholecystitis, aortic dissection, aneurysmal leak, bowel obstruction, and perforation. CBC will be obtained to assess for leukocytosis and anemia. Comprehensive metabolic profile will be obtained to assess for hepatic function, renal function, and electrolyte abnormality. Lipase will be obtained to assess for pancreatitis. Urinalysis will be obtained to assess for urinary tract infection and hematuria. Lab Data Attestation: I reviewed the patient's lab results. Lab results narrative: CBC was reviewed and was essentially within normal limits. Comprehensive metabolic profile was reviewed and was within normal limits. Lipase was reviewed and was slightly elevated at 86. Urinalysis was reviewed. Leukocyte esterase was 500 with positive nitrates. There are 50-100 white blood cells and 4+ bacteria. Labs: Laboratory Results - last 24 hr 09/06/24 09/06/24 11:49 14:13 WBC 8.7 RBC 4.78 Hgb 15.3 H Hct 45.9 MCV 96.0 MCH 32.0 MCHC 33.3 RDW Std Deviation 56.1 H RDW Coeff of Silvia 16.6 H Plt Count 185 MPV 9.4 Immature Gran % (Auto) 0.500 Neut % (Auto) 83.5 H Lymph % (Auto) 7.7 L [place] % (Auto) 5.4 Eos % (Auto) 2.4 Baso % (Auto) 0.5 Absolute Neuts (auto) 7.2 Absolute Lymphs (auto) 0.67 L Nucleated RBC % 0 Sodium 140 Potassium 3.4 Chloride 102 Carbon Dioxide 24.3 Anion Gap 13 BUN 12 Creatinine 0.81 Estim Creat Clear Calc 59.64 Est GFR (MDRD) Non-Af 78 BUN/Creatinine Ratio 15.0 Glucose 95 Calcium 9.1 Total Bilirubin 1.04 AST 15 ALT < 5 Alkaline Phosphatase 137 H Total Protein 6.8 Albumin 3.8 Globulin 3.0 Albumin/Globulin Ratio 1.3 Lipase 86 H Urine Color Yellow Urine Clarity Sl. Cloudy Urine pH 6.0 Ur Specific [place] 1.015 Urine Protein 30 H Urine Glucose (UA) Normal Urine Ketones Negative Urine Occult Blood 25 H Urine Nitrite Positive H Urine Bilirubin Negative Urine Urobilinogen 1 H Ur Leukocyte Esterase 500 H Urine RBC 0-5 SEEN Urine WBC 50-100 SEEN Ur Squamous Epith Cells 0-5 SEEN Urine Bacteria 4+ Urine Mucus 0 SEEN Radiography Diagnostic Testing: Clinical Impression(s) from Imaging Studies Abdomen/Pelvis CT 09/06/24 12:12 IMPRESSION: Moderate acute uncomplicated appendicitis as detailed above. [facility] of the abdomen and pelvis was obtained. There is evidence of acute uncomplicated appendicitis. There is no abscess or free air. There is no evidence of bowel obstruction. This was interpreted by the radiologist and was also independently reviewed by myself. Treatment and Re-Evaluation :: Patient was given IV fluids, morphine, and Zofran. Patient's oxygen saturation dropped after receiving morphine. Patient was placed on 2 L nasal cannula. Patient's oxygen saturation improved after this. Patient was resting comfortably. Patient was given a dose of Zosyn. Patient was advised of her findings. Case was discussed with Dr. Smiley from general surgery. He will take the patient to surgery today. Patient and family understand and are agreeable with the plan. All questions were answered. Discharge Plan Triage Chief Complaint: Abd Pain ED Provider: Donovan Vora Dx/Rx/DC Orders Clinical Impression: Acute appendicitis, Urinary tract infection Prescriptions: No Action aspirin [Adult Low Dose Aspirin] 81 mg tablet,delayed release (DR/EC) 81 mg PO QDAY metoprolol tartrate 50 mg tablet 25 mg PO DAILY Qty: 90 3RF Primary Care Provider: Lubna Dey Referrals: Lubna Dey MD [Primary Care Provider] - Print Language: [place] Disposition Disposition: Acute Care Hospital [facility]
--- NOTE | 2024-09-06 12:12 | CT_ITS ---
PROCEDURE: CT abdomen pelvis with IV contrast REASON FOR EXAM: Pain TECHNIQUE: Multiple contiguous axial images through the abdomen and pelvis were obtained after the administration of intravenous contrast. Two-dimensional coronal and sagittal reformatted images were reconstructed. Low-dose imaging technique was utilized. COMPARISON: 07/02/2023 FINDINGS: Bibasilar scarring/atelectasis, greater on the left. Liver, spleen, pancreas and adrenal glands are within normal limits. Gallbladder is satisfactory. No significant biliary ductal dilation. Kidneys enhance symmetrically. No suspicious renal mass, calculi or significant hydronephrosis. Small diverticula along the posterolateral aspects of the right and left bladder. Distal colonic diverticulosis. No bowel obstruction. Dilated fluid-filled retrocecal appendix measuring up to 10 mm in diameter with mucosal hyperenhancement and moderate surrounding inflammatory changes consistent with acute appendicitis. No periappendiceal abscess or free air. No pelvic free fluid. Postsurgical changes of the abdominal aorta which is mildly ectatic. No bulky adenopathy. Scarring along the left inguinal region. No acute osseous abnormality. Chronic compression deformity of L1. CT/Abdomen/Pelvis W IV Cont ONLY IMPRESSION: Moderate acute uncomplicated appendicitis as detailed above. Reading Location: [facility]
[2024-09-06] MEDS: Ondansetron 4 MG/2 ML Vial IV (12:20)
[2024-09-06] MEDS: Morphine 4 MG/ML Syringe IV (12:20)
[2024-09-06] MEDS: 0.9% Normal Saline (1000mL) 1,000 ML 999 ML IV (12:20)
[2024-09-06 12:21] LABS: Absolute Lymphocyte Count 0.67 X10^3/uL (0.83-4.51); Absolute Neutrophil Count 7.2 X10^3/uL (2.0-7.7); Basophil# 0.04 X10^3/uL; Basophil% 0.5 % (0-1); Eosinophil# 0.21 X10^3/uL; Eosinophils% 2.4 % (0-5); Hematocrit 45.9 % (37-47); Hemoglobin 15.3 g/dL (12.0-15.0); Lymphocyte # 0.67 X10^3/ul (0.83-4.51); Lymphocyte % 7.7 % (19-41); Mean Corp Hgb Conc 33.3 g/dL (32-36); Mean Platelet Vol. 9.4 fl (6.2-12.0); Monocyte# 0.47 X10^3/uL; Monocyte% 5.4 % (0-10); NRBC Flagged by Analyzer 0 % (0-5); Neutrophil # 7.22 X10^3/uL (2.7-7.7); Neutrophil % 83.5 % (47-70); Platelet Count 185 K/mm3 (150-450); RBC Distribution Width CV 16.6 % (11.6-14.6); RBC Distribution Width SD 56.1 fl (35.1-43.9); Red Blood Count 4.78 M/mm3 (4.2-5.4); White Blood Count 8.7 K/mm3 (4.4-11.0)
--- NOTE | 2024-09-06 12:27 | ED.RN ---
Pt. spo2 dropped to 83% after morphine pushed. Pt., placed on 2L NC and increased to 93%. Pt. stated this always happens after I get pain medication.
[2024-09-06 13:01] LABS: Lipase 86 U/L (13-75)
[2024-09-06 13:17] LABS: ALB/GLOB Ratio 1.3 RATIO (0.9-2.4); AST(SGOT) 15 U/L (<=31); Alanine Aminotransfer ALT/SGPT < 5 U/L (<=34); Albumin, Serum 3.8 g/dL (3.4-4.8); Alkaline Phosphatase 137 U/L (35-104); Anion Gap 13 (5-15); BUN 12 mg/dL (4-19); Calcium,Total 9.1 mg/dL (7.6-11.0); Carbon Dioxide 24.3 mmol/L (21.0-32.0); Chloride 102 mmol/L (98-108); Creatinine, Serum 0.81 mg/dL (0.70-1.20); EST Glomerular Filtration Rate 78 (>60); Estimated Creatinine Clearance 59.64 ml/min (50-250); Glucose 95 mg/dL (70-99); Potassium 3.4 mmol/L (3.3-5.1); Protein, Total 6.8 g/dL (5.9-8.4); Sodium Level 140 mmol/L (133-145); Total Bilirubin 1.04 mg/dL (0.00-1.30)
[2024-09-06 14:22] LABS: Mucous, Urine 0 SEEN /hpf (<or=2+)
[2024-09-06 14:24] LABS: Color, Urine Yellow (Yellow); Glucose, Dipstick Normal (Normal); Ketone-Dipstick Negative (Negative); Leukocyte Esterase-Dipstick 500 /ul (Negative); Nitrite-Dipstick Positive (Negative); Occult Blood-Urine 25 /ul (Negative); Protein-Dipstick 30 mg/dl (Negative); Specific Gravity, Urine 1.015 (1.002-1.030); Urine Bilirubin Dipstick Negative (Negative); Urine Clarity Sl. Cloudy (Clear); Urine Urobilinogen 1 mg/dl (Normal)
[2024-09-06 14:41] LABS: White Blood Cells 50-100 SEEN /hpf (0-5)
[2024-09-06 14:43] LABS: Bacteria 4+ /hpf (None Seen); Red Blood Cells-Urine 0-5 SEEN /hpf (0-5); Squamous Epithelial Cells - UA 0-5 SEEN /hpf (5-10)
[2024-09-06] MEDS: Piperacil/Tazobactam 4.5 GM in 0.9% Normal Saline (100mL MB+) 100 ML IV (15:09)
[2024-09-06] MEDS: fentaNYL 100 MCG/2 ML Ampul 50 MCG IV (15:34)
--- NOTE | 2024-09-06 15:51 | PCM.PRE.AN2 ---
ASA Classification* ASA Classification ASA Classification: 3 Assessment & Plan Anesthesia* Anesthesia Assessment Anesthesia Assessment: Discussed sedation and/or anesthesia options, risks, benefits, and alternatives with patient/parents/legal guardian/POA. Questions invited. The patient/parents/legal guardian/POA seems to understand and agrees to proceed with anesthesia plan. Reviewed the physical assessment, medical history, allergy history and patient home medications list prior to surgery/procedure/anesthetic and documented any changes. Performed airway and anesthesia risk assessments. Procedural Plan Add'l anesthesia plan details: Discussed GA with ETT. Discussed risks of injury to teeth/gums/lips, postop ventilation, need for blood transfusions, and less likely chances of stroke/seizure/allergic rxn/IL or post-op O2 requirement Anesthesia Type Anesthesia Type: General History Source History Obtained from:: Patient and Chart Anesthesia Focused Assessment* Temperature: 97.4 F Pulse Rate: 72 Blood Pressure: 163/70 Respiratory Rate: 22 Pulse Ox: 95 Oxygen Delivery Method: Nasal Cannula Oxygen Flow Rate (L/min): 2 Airway Assessment Mouth opens: 2 cm Mallampati Score: III Teeth Condition: Missing (few missing teeth noted, nothing loose no dentures or removables) Focused Labs Anesthesia Preop lab: CBC WBC 8.7 K/mm3 (4.4-11.0) 09/06/24 11:49 09/06/24 RBC 4.78 M/mm3 (4.2-5.4) 09/06/24 11:49 09/06/24 Hgb 15.3 g/dL (12.0-15.0) H 09/06/24 11:49 09/06/24 Hct 45.9 % (37-47) 09/06/24 11:49 09/06/24 Plt Count 185 K/mm3 (150-450) 09/06/24 11:49 09/06/24 CHEMISTRY Potassium 3.4 mmol/L (3.3-5.1) 09/06/24 11:49 09/06/24 Sodium 140 mmol/L (133-145) 09/06/24 11:49 09/06/24 Magnesium 1.6 mg/dL (1.6-2.6) 01/18/21 11:51 01/18/21 BUN 12 mg/dL (4-19) 09/06/24 11:49 09/06/24 Creatinine 0.81 mg/dL (0.70-1.20) 09/06/24 11:49 09/06/24 Glucose 95 mg/dL (70-99) 09/06/24 11:49 09/06/24 TSH 2.190 uIU/mL (0.358-3.740) 06/30/24 12:41 06/30/24 COAG Pre-Assessment Diagnosis/Proposed Procedure Planned Operative Procedure(s): Laparoscopic Appendectomy Anesthesia History 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 When Was Last Pacemaker Check QUESTION #4 FULL TEXT: You/Your Family Experience fever (hyperthermia) with Anesthesia Last Oral Intake Last Oral intake: Last Oral Intake NPO since Meds taken in AM with sips of water? Meds patient instructed to take am of surgery PONV PONV - paraffin plant operator: PONV - paraffin plant operator Female HX of Motion Sickness HX of N/V After Surgery Non-Smoker Duration of Surgery greater than 60 minutes Number of Risk Factors PONV Score Height & Weight Height & Weight: Anesthesia: Height & Weight Height 5 ft 6 in 09/06/24 11:29 Weight: 68.039 kg 09/06/24 11:29 Body Mass Index (BMI) 24.2 09/06/24 11:29 Respiratory Assessment Respiratory Assessment - paraffin plant operator: Respiratory Tract Infection Hx - paraffin plant operator Hx Respiratory Tract Infection STOP Sleep Apnea STOP Sleep Apnea - paraffin plant operator: STOP Sleep Apnea - paraffin plant operator Hx Hypertension Yes 07/04/21 13:29 Hx Sleep Apnea CPAP BIPAP Do you snore loudly (louder than talking or can be heard Do you often feel tired/ fatigued/ sleepy during daytime? Has anyone observed you stop breathing during sleep? STOP Results QUESTION #5 FULL TEXT : Do you snore loudly (louder than talking or can be heard through closed doors)? 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 Specify any problems Hx of Preganancy in last 3 Months Nurse Filling Out Transfusion & Questions: Date: Time: Patient unable to answer at this time (ie. confused, unrespo /Reproduction History /Reproductive History - paraffin plant operator: /Reproductive Hx- paraffin plant operator Hx Now Gestational Age (in weeks): EDC: Hx Hx Para Hx Section SAB PFSH Medical History Pleural effusion on left Atelectasis of left lung Postoperative urinary retention Situational insomnia Chronic anxiety Preop exam for internal medicine Acute bronchitis, unspecified COVID-19 Contact with and (suspected) exposure to other viral communicable diseases Elevated MCV Elevated hemoglobin Hypokalemia Enlarged thyroid gland Uncontrolled hypertension Breast lump Hearing problem AAA (abdominal aortic aneurysm) Rash Knee pain, chronic Hay fever Hemorrhoids HTN (hypertension) Home Medications ?Medication ?Instructions ?Recorded ?Last Taken ?Type aspirin 81 mg tablet,delayed 81 mg PO QDAY 07/28/24 Unknown History release (Adult Low Dose Aspirin) metoprolol tartrate 50 mg tablet 25 mg (1/2 x 50 mg) PO DAILY #90 07/28/24 Unknown Rx tabs Allergy/AdvReac Type Severity Reaction Status Date / Time NSAIDS (Non-Steroidal AdvReac Nausea Verified 09/06/24 11:32 Anti-Inflamma Family History Other Anxiety with depression Arthritis Asthma Diabetes Hyperlipemia Hypertension Surgical History Status post AAA (abdominal aortic aneurysm) repair History of AAA (abdominal aortic aneurysm) repair Cataract fragments in eye following surgery Social History Smoking Status: Current every day smoker tobacco type: cigarettes alcohol intake: current alcohol intake frequency: holidays/special occasions only substance use type: does not use Review of Systems (Anesthesia) ROS Narrative System reviewed and no additional complaints, except as documented. Physical Exam Const alert and oriented x3 HEENT dentition normal Neck full ROM Resp normal respiratory effort and normal air movement Resp Narrative: on 2L via NC Cardio regular rate, regular rhythm and no murmurs Extremity full ROM Neuro oriented x3 and moves all extremities
--- NOTE | 2024-09-06 16:01 | PCM.HP.STD ---
HPI - General General Date of Admission: 09/06/24 Date of Service: 09/06/24 Chief Complaint: Right lower quadrant abdominal pain/appendicitis HPI Narrative CHARLIE ESTRADA, is a 73 F who presented to the emergency department at [facility] earlier today with right-sided abdominal pain has been present for a couple of days. She states that it has been getting steadily worse. She states that this pain started as a generalized pain which then migrated to the right lower quadrant. She has had some nausea and decreased appetite. No vomiting. She denies any fevers or chills. She did have a previous AAA repair in May 2024. This was through a left sided retroperitoneal approach. While seen in the emergency room, she underwent blood work which showed a normal white blood cell count however CT scan showed moderate appendicitis. General surgery was contacted and I recommended laparoscopic appendectomy. [facility] Medical History Pleural effusion on left Atelectasis of left lung Postoperative urinary retention Situational insomnia Chronic anxiety Preop exam for internal medicine Acute bronchitis, unspecified COVID-19 Contact with and (suspected) exposure to other viral communicable diseases Elevated MCV Elevated hemoglobin Hypokalemia Enlarged thyroid gland Uncontrolled hypertension Breast lump Hearing problem AAA (abdominal aortic aneurysm) Rash Knee pain, chronic Hay fever Hemorrhoids HTN (hypertension) Home Medications ?Medication ?Instructions ?Recorded ?Last Taken ?Type aspirin 81 mg tablet,delayed 81 mg PO QDAY 07/28/24 Unknown History release (Adult Low Dose Aspirin) metoprolol tartrate 50 mg tablet 25 mg (1/2 x 50 mg) PO DAILY #90 07/28/24 Unknown Rx tabs Allergy/AdvReac Type Severity Reaction Status Date / Time NSAIDS (Non-Steroidal AdvReac Nausea Verified 09/06/24 11:32 Anti-Inflamma Family History Other Anxiety with depression Arthritis Asthma Diabetes Hyperlipemia Hypertension Surgical History Status post AAA (abdominal aortic aneurysm) repair History of AAA (abdominal aortic aneurysm) repair Cataract fragments in eye following surgery Social History Smoking Status: Current every day smoker tobacco type: cigarettes alcohol intake: current alcohol intake frequency: holidays/special occasions only substance use type: does not use Vital Signs Vital Signs Vital Signs: 09/06/24 11:29 09/06/24 12:26 09/06/24 12:26 Temperature 97.4 F L Temperature Source Oral Pulse Rate 81 Respiratory Rate 16 Blood Pressure 158/86 H Blood Pressure Mean 110 Pulse Ox 95 83 91 Oxygen Delivery Method Room Air Room Air Nasal Cannula Oxygen Flow Rate (L/min) 2 09/06/24 14:00 09/06/24 14:27 Temperature Temperature Source Pulse Rate 72 Respiratory Rate 22 H Blood Pressure 163/70 H Blood Pressure Mean 101 Pulse Ox 96 95 Oxygen Delivery Method Room Air Nasal Cannula Oxygen Flow Rate (L/min) 2 Weight Weight: 150 lb Body Mass Index (BMI) 24.2 Physical Exam Narrative She is alert and oriented x 3. She is in no acute distress. Head is normocephalic and atraumatic. Pupils are equal round and reactive to light. Abdomen is soft and nondistended. She does have moderate right lower quadrant tenderness to palpation. No rebound or guarding. Results Lab / Micro Data 09/06/24 11:49 09/06/24 11:49 Labs: Laboratory Results - last 24 hr 09/06/24 11:49: WBC 8.7, RBC 4.78, Hgb 15.3 H, Hct 45.9, MCV 96.0, MCH 32.0, MCHC 33.3, RDW Std Deviation 56.1 H, RDW Coeff of Silvia 16.6 H, Plt Count 185, MPV 9.4, Immature Gran % (Auto) 0.500, Neut % (Auto) 83.5 H, Lymph % (Auto) 7.7 L, [place] % (Auto) 5.4, Eos % (Auto) 2.4, Baso % (Auto) 0.5, Absolute Neuts (auto) 7.2, Absolute Lymphs (auto) 0.67 L, Nucleated RBC % 0, Sodium 140, Potassium 3.4, Chloride 102, Carbon Dioxide 24.3, Anion Gap 13, BUN 12, Creatinine 0.81, Estim Creat Clear Calc 59.64, Est GFR (MDRD) Non-Af 78, BUN/Creatinine Ratio 15.0, Glucose 95, Calcium 9.1, Total Bilirubin 1.04, AST 15, ALT < 5, Alkaline Phosphatase 137 H, Total Protein 6.8, Albumin 3.8, Globulin 3.0, Albumin/Globulin Ratio 1.3, Lipase 86 H 09/06/24 14:13: Urine Color Yellow, Urine Clarity Sl. Cloudy, Urine pH 6.0, Ur Specific [place] 1.015, Urine Protein 30 H, Urine Glucose (UA) Normal, Urine Ketones Negative, Urine Occult Blood 25 H, Urine Nitrite Positive H, Urine Bilirubin Negative, Urine Urobilinogen 1 H, Ur Leukocyte Esterase 500 H, Urine RBC 0-5 SEEN, Urine WBC 50-100 SEEN, Ur Squamous Epith Cells 0-5 SEEN, Urine Bacteria 4+, Urine Mucus 0 SEEN Imaging Radiology Impression Abdomen/Pelvis CT 09/06/24 12:12 IMPRESSION: Moderate acute uncomplicated appendicitis as detailed above. Reading Location: [facility] Assessment & Plan Assessment/Plan (1) Acute appendicitis: PLAN: Plan The patient is a 73-year-old female with acute appendicitis. I have recommended a laparoscopic appendectomy as treatment. We discussed the details of the planned procedure as well as risks benefits and alternatives. She wishes to proceed. This will begin shortly Charges/Coding Visit Charges Inpatient E&M: 19899 Init Hosp L3
--- NOTE | 2024-09-06 17:20 | APP_PTH ---
PATIENT: CHARLIE ESTRADA LOC: [facility] U#:[id number] AGE/SX: 73/F ROOM: OK308 RE09/06/[address]: Dr. Yang Smiley MD : 1950 BED: 1 DIS: 09/07/2024 SPEC #: [id number] RECD: 09/08/24 10:20 STATUS: OSIEL TURNER #: [id number] HAYDE: 09/06/24 17:[address]: Yang Smiley DEPT: SURGICAL PATHOLOGY RECD BY: Ivonne Montes ENTERED: 09/08/24 11:07 SP TYPE: APPENDIX OTHR DR: Dr. Lubna Dey MD Tissues: Appendix, NOS Procedures: Surgery Specimen Level III HEADER OPERATION: Laparoscopic appendectomy PRE-OP DIAGNOSIS: Acute appendicitis TISSUE SUBMITTED: A- Appendix MICROSCOPIC DIAGNOSIS A. Appendix, appendectomy: * Acute appendicitis. MICROSCOPIC DESCRIPTION Slides are reviewed. GROSS DESCRIPTION A. Received in fixative is one container labeled with the patient's name and designated Appendix. The specimen consists of an appendix measuring 7cm in length and 1.8cm in greatest diameter. The appendix appears gangrenous. Two personal financial representative sections are placed in cassette A1. One section of the black-inked margin adjacent to the staple line and the entire bisected tip are placed in A2. JAYANT. 09/08/2024 A2- black margin adjacent to staple and appendix. KANE 09/15/2024 CPT:72070
[2024-09-06] MEDS: Bupiv/Epi 0.25% 30 ML Vial (17:22)
--- NOTE | 2024-09-06 17:29 | OP.PCM_ITS ---
Procedures Digestive 40xxx-49xxx: [id number] Laparoscopy appendectomy Operative Report (Standard) Operative Information Date of Procedure: 09/06/24 Pre-Operative Diagnosis: acute appendicitis Post-Operative Diagnosis: same Surgery/Procedure Performed: laparoscopic appendectomy residential solar sales consultant: Yes Content Management Consultant: Melisa Rain Tasks completed by staff assistant: Closing and Retracting Additional preschool teacher's assistant?: No Type of Anesthesia: General and Local RN Documented Start/Stop Times: Operation Date: 09/06/24 17:20 Case Time Anesthesia Start 09/06/24 16:19 Into Room 09/06/24 16:19 Procedure Start 09/06/24 16:40 Procedure Start Time: 16:40 Procedure Stop Time: 17:20 Select all DRAINS/GRAFTS/IMPLANTS that apply: None Special Medications: zosyn Estimated Blood Loss: 10ml Specimen collected: Yes Description of specimen(s) removed: appendix Description of surgery: The patient is a 73-year-old female who presented to the emergency department earlier today with right-sided abdominal pain for 2 weeks. She was evaluated by the emergency department was found to have acute appendicitis on CT scan. I recommended a laparoscopic appendectomy as treatment. We discussed the details of the planned procedure including the risks benefits and alternatives. She wished to proceed. She was brought to the operating room today following informed consent antibiotics were given in the emergency department. She was placed supine on the operative table with arms outstretched on arm boards. A general endotracheal anesthesia was then induced. Once asleep, arms were comfortably tucked at her sides. The abdomen was then prepped and draped in the usual sterile manner. A 5 mm incision was made just below the umbilicus which a 5 mm trocar was placed optically. This was placed without incident once in place the abdomen is then fully insufflated with CO2 gas. 5 mm 0 degree scope was inserted. There were no signs of bowel or vascular injury. A 5 mm trocar was placed in the left lower quadrant under direct visualization as well as a 12 mm trocar placed in the left upper quadrant. She did have some adhesions from her previous AAA repair however these were more lateral to where the 2 trocars were placed. The patient was then positioned with some roll to the left and some headdown positioning. The cecum was identified and grasped. This was reflected in somewhat of a cephalad direction. The base of the appendix was visualized however it was noted to be somewhat retrocecal and lateral. At this point a harmonic scalpel device was obtained. This was used to take down the lateral peritoneal attachments of the cecum and proximal right colon. This allowed the colon to be positioned more medially and allowed visualization of the appendix. The appendix was clearly inflamed but nonruptured. The the appendix was densely adhered to the surrounding tissues. The scope was placed to proximal GI tissue stapler was then progressed the base of the second. Attempted to utilize a vascular stapler to take down the mesoappendix however due to the orientation of the appendix this was not feasible. Instead I used the harmonic scalpel to take down the mesoappendix.. Hemostasis was very good. The specimen once free was placed into a bag and brought out through the 12 mm trocar site. The trocar was replaced. The right lower quadrant is then copiously irrigated. Again hemostasis was very good I did apply some Jag along the region where the appendix was identified as this was somewhat of a raw surface but no overt bleeding was noted. Patient was then flattened out. All remaining irrigation fluid was suctioned out. A total of 1.5 L of saline was used to irrigate the right lower quadrant prior to Jag placement. Next the fascia of the 12 mm trocar site was closed using 0 PDS with the aid of the fascial closure device. The remaining trocars were opened up and insufflation was allowed to escape. A total of 20 cc of local anesthetic were injected into the 3 incisions. Incision was then closed with 4-0 Vicryl. Skin glue was then applied as dressing. She was awakened from anesthesia and taken to recovery in good condition. A PHARMACY TECHNICIAN PROGRAM DIRECTOR was utilized as a personal care assistant. Her role included patient positioning and prep, holding the camera, and assistance with wound closure. Surgical Findings: acute retrocecal appendicitis - not ruptured Complications Complications: No Admit VTE Documentation VTE Present on Admission: No VTE Mechan Device Prophylaxis: SCD's VTE Pharm Prophylaxis ordered?: No Reason prophylaxis not ordered: Treatment Not Indicated
--- NOTE | 2024-09-06 17:42 | PCM.POST.ANE ---
Anesthesia: Postop Eval I Current Vital Signs Temperature: 97.5 F Pulse Rate: 62 Blood Pressure: 124/56 Respiratory Rate: 14 Pulse Ox: 98 Oxygen Delivery Method: Nasal Cannula Oxygen Flow Rate (L/min): 2 Assessment Airway patent: Yes Spontaneous unlabored respirations: Yes Mental status: Awake and Calm nausea: No Vomiting: No Anesthesia Complication: No Fluid Hydration Crystalloid volume administer (ml): 900 Total IV fluid infused: 900 Progress Note Anesthesia document: Postop Eval 1 completed: Yes
--- NOTE | 2024-09-06 17:44 | PCM.POSTANE2 ---
Anesthesia Postop Eval I Sum Postop Eval Completion status Anesthesia document: Postop Eval 1 completed: Yes Anesthesia Postop Eval I Summary Anesthesia Postop Eval I Summary: Anesthesia Postop Eval I: Assessment Summary Airway patent Yes 09/06/24 17:44 Spontaneous unlabored Yes 09/06/24 17:44 respirations Mental status Awake,Calm 09/06/24 17:44 nausea No 09/06/24 17:44 Vomiting No 09/06/24 17:44 Anesthesia Postop Eval I: Fluid Summary Crystalloid volume administer 900 09/06/24 17:44 (ml) Colloids volume administered ( ml) Blood Product volume administered (ml) Total IV fluid infused 900 09/06/24 17:44 Anesthesia Postop Eval I: Summary Notes Anesthesia Complication No 09/06/24 17:44 Anesthesia Complication Comment: Post-operative progress note Anesthesia: Postop Eval II Evaluation Mental status: Awake and Calm Pain Level: 3 nausea: No Vomiting: No Complications Anesthesia Complication: No
[2024-09-06] MEDS: oxyCODONE 5 MG Tablet PO (20:23)
[2024-09-06] MEDS: Acetaminophen 500 MG Tablet 1000 MG PO (22:38)
[2024-09-06] MEDS: Piperacil/Tazobactam 3.375 GM in 0.9% Normal Saline (50mL MB+) 50 ML IV (22:39)
[2024-09-07 03:12] VITALS: BP 113/67; PULSE 65; RESP 18; TEMP 36.5; O2SAT 94
[2024-09-07 05:38] VITALS: BP 135/78; PULSE 62; RESP 18; TEMP 36.9; O2SAT 95
[2024-09-07] MEDS: Piperacil/Tazobactam 3.375 GM in 0.9% Normal Saline (50mL MB+) 50 ML IV ×2 (05:41→13:49)
[2024-09-07] MEDS: Acetaminophen 500 MG Tablet 1000 MG PO ×2 (05:42→13:49)
[2024-09-07 06:03] LABS: Absolute Lymphocyte Count 0.59 X10^3/uL (0.83-4.51); Absolute Neutrophil Count 10.5 X10^3/uL (2.0-7.7); Basophil# 0.01 X10^3/uL; Basophil% 0.1 % (0-1); Hemoglobin 13.2 g/dL (12.0-15.0); Lymphocyte # 0.59 X10^3/ul (0.83-4.51); Lymphocyte % 4.9 % (19-41); Mean Corpuscular Hgb 32.4 pg (27.0-32.0); Mean Platelet Vol. 9.9 fl (6.2-12.0); Monocyte# 0.89 X10^3/uL; Monocyte% 7.4 % (0-10); NRBC Flagged by Analyzer 0 % (0-5); Neutrophil # 10.45 X10^3/uL (2.7-7.7); Neutrophil % 87.1 % (47-70); POSITIVE DIFFERENTIAL YES; Platelet Count 180 K/mm3 (150-450); RBC Distribution Width CV 16.9 % (11.6-14.6); RBC Distribution Width SD 58.9 fl (35.1-43.9); Red Blood Count 4.08 M/mm3 (4.2-5.4)
[2024-09-07 07:04] LABS: Anion Gap 16 (5-15); BUN 16 mg/dL (4-19); BUN/Creat Ratio 17.5 RATIO (10-20); Calcium,Total 8.2 mg/dL (7.6-11.0); Chloride 104 mmol/L (98-108); Creatinine, Serum 0.93 mg/dL (0.70-1.20); EST Glomerular Filtration Rate 66 (>60); Estimated Creatinine Clearance 56.57 ml/min (50-250); Glucose 146 mg/dL (70-99); Potassium 3.2 mmol/L (3.3-5.1); Sodium Level 137 mmol/L (133-145)
[2024-09-07 08:23] VITALS: BP 121/73; PULSE 62; RESP 18; TEMP 37.1; O2SAT 97
[2024-09-07 08:43] VITALS: BP 121/73; PULSE 62
[2024-09-07] MEDS: oxyCODONE 5 MG Tablet PO (08:43)
[2024-09-07] MEDS: Metoprolol Tartrate 25 MG Tablet PO (08:43)
[2024-09-07] MEDS: FLU VACCINE **HIGH DOSE** TV 24-25 180 MCG/0.5 ML SYRINGE IM (08:43)
[2024-09-07 12:27] VITALS: BP 124/61; PULSE 52; RESP 16; TEMP 36.7; O2SAT 95
--- NOTE | 2024-09-07 12:27 | DS.PCM_ITS ---
Providers Date of Admission: 09/06/24 Date of Discharge: 09/07/24 Primary Care Physician: Dr. Lubna Dey MD Reason For Visit: APPENDICITIS Diagnosis Discharge Diagnosis (1) Acute appendicitis: Status: Acute Code(s): K35.80 - Unspecified acute appendicitis Plan The patient is a 73-year-old female with acute appendicitis. I have recommended a laparoscopic appendectomy as treatment. We discussed the details of the planned procedure as well as risks benefits and alternatives. She wishes to proceed. This will begin shortly Medications at Discharge Home Medications aspirin 81 mg tablet,delayed release (Adult Low Dose Aspirin) 81 mg PO QDAY 07/28/24 metoprolol tartrate 50 mg tablet 25 mg (1/2 x 50 mg) PO DAILY #90 tabs 07/28/24 oxycodone-acetaminophen 5 mg-325 mg tablet (Percocet) 1 tab PO Q8H PRN pain 3 days #10 tabs 09/07/24 Hospital Course Operations appendectomy Summary of Care Provided Minutes Spent on Discharge: 20 Hospital Course: The patient is a 73-year-old female who presented yesterday to the emergency department at [facility] with right-sided abdominal pain. This pain had been ongoing for about 2 days. She was seen and evaluated by the ER staff. Her white blood cell count was normal however CT scan indicated a retrocecal appendicitis without perforation. Surgery was consulted and immediate plans were put in place to proceed to laparoscopic appendectomy. The surgery was performed yesterday afternoon. This was well-tolerated. She was admitted overnight for observation and pain control. She did well overnight. She has been tolerating diet and passing flatus. Pain is under good control. She is on 2 L of oxygen but this is being weaned. We are anticipating discharge later today as long as her oxygen can be weaned off successfully Physical Exam Narrative She is alert and oriented x 3. She is in no acute distress. Abdomen soft and appropriately tender. Weight / BMI Weight Weight: 159 lb 13.362 oz Body Mass Index (BMI) 25.7 ABG / Lab / Microbiology Data 09/07/24 05:35 09/07/24 05:35 Laboratory: Laboratory Results - last 24 hr 09/06/24 11:49: Sodium 140, Potassium 3.4, Chloride 102, Carbon Dioxide 24.3, Anion Gap 13, BUN 12, Creatinine 0.81, Estim Creat Clear Calc 59.64, Est GFR (MDRD) Non-Af 78, BUN/Creatinine Ratio 15.0, Glucose 95, Calcium 9.1, Total Bilirubin 1.04, AST 15, ALT < 5, Alkaline Phosphatase 137 H, Total Protein 6.8, Albumin 3.8, Globulin 3.0, Albumin/Globulin Ratio 1.3, Lipase 86 H 09/06/24 14:13: Urine Color Yellow, Urine Clarity Sl. Cloudy, Urine pH 6.0, Ur Specific [place] 1.015, Urine Protein 30 H, Urine Glucose (UA) Normal, Urine Ketones Negative, Urine Occult Blood 25 H, Urine Nitrite Positive H, Urine Bilirubin Negative, Urine Urobilinogen 1 H, Ur Leukocyte Esterase 500 H, Urine RBC 0-5 SEEN, Urine WBC 50-100 SEEN, Ur Squamous Epith Cells 0-5 SEEN, Urine Bacteria 4+, Urine Mucus 0 SEEN 09/07/24 05:35: WBC 12.0 H, RBC 4.08 L, Hgb 13.2, Hct 40.0, MCV 98.0, MCH 32.4 H , MCHC 33.0, RDW Std Deviation 58.9 H, RDW Coeff of Silvia 16.9 H, Plt Count 180, MPV 9.9, Immature Gran % (Auto) 0.500, Neut % (Auto) 87.1 H, Lymph % (Auto) 4.9 L, [place] % (Auto) 7.4, Eos % (Auto) 0.0, Baso % (Auto) 0.1, Absolute Neuts (auto) 10.5 H, Absolute Lymphs (auto) 0.59 L, Nucleated RBC % 0, Sodium 137, Potassium 3.2 L, Chloride 104, Carbon Dioxide 18.0 L, Anion Gap 16 H, BUN 16, Creatinine 0.93, Estim Creat Clear Calc 56.57, Est GFR (MDRD) Non-Af 66, BUN/Creatinine Ratio 17.5, Glucose 146 H, Calcium 8.2 Microbiology: Microbiology 09/06/24 14:13 Urine, Clean Catch Urine Culture - Preliminary GNR lactose cdl program coordinator Radiography Diagnostic Testing: Radiology Impression Abdomen/Pelvis CT 09/06/24 12:12 IMPRESSION: Moderate acute uncomplicated appendicitis as detailed above. Reading Location: [facility] Instructions Discharge Diet: Light diet - advance as tolerated Discharge Activity: Return to Normal Activity and May Shower May shower in (days): 1 Ice area for (Minutes): 30 Lifting Restrictions: Keep lifting under 20 pounds for about 3 to 4 weeks Call your doctor if your incision/area has: Continuous Slow Oozing, Sudden Increased Bleeding, Increased Pain/ Swelling, Increased Redness, Foul Smelling Discharge and Swelling at the incision site Call your doctor if you observe: Fever of 101 or Higher Cleanse incision/area with: Soap & Water DC O2, CPAP, BIPAP Needs Home O2 Discharge instructions: No DC home with Oxygen: No Please Follow Up With: Yang Smiley MD When: 2 weeks. Please call office to schedule appointment Meaningful Use Info Meaningful Use Meaningful Use Diagnoses (Choose all that apply): None applicable Ischemic Stroke Statin Dosing Therapy Reference: STATIN DOSE THERAPY REFERENCE: * Patients > 75 years receive moderate or high dose statin therapy. * Patients 75 years or YOUNGER should receive HIGH intensity statin dose unless contraindicated. You will be required to document reason for non-treatment if statin daily dose does not meet guidelines. HIGH DOSE STATIN THERAPY DAILY Atorvastatin > than or = to 40 mg Rosuvastatin > than or = to 20 mg Amlodipine + Atorvastatin > than or = to 2.5/40 mg Ezetimibe + Simvastatin 10/80 mg Simvastatin 80mg Discharge Plan Admission Admit Date/Time: 09/06/24 17:25 Primary Reason for Your Visit: Acute appendicitis Attending Provider: Yang Smiley Primary Care Provider: Lubna Dey Discharge Orders/Prescriptions Prescriptions: New oxycodone-acetaminophen [Percocet] 5-325 mg tablet 1 tab PO Q8H PRN (Reason: pain) 3 Days Qty: 10 0RF Continued aspirin [Adult Low Dose Aspirin] 81 mg tablet,delayed release (DR/EC) 81 mg PO QDAY metoprolol tartrate 50 mg tablet 25 mg PO DAILY Qty: 90 3RF Referrals / Follow Up: Lubna Dey MD [Primary Care Provider] - Disposition Disposition (needs filled in before D/C Order can be placed): Home, Self Care
[2024-09-07 15:21] VITALS: BP 117/75; PULSE 53; RESP 18; TEMP 36.7; O2SAT 94
== END 2024-09-07 15:42 | disposition home or self-care (01) ==
LOC: ED 15:00 → SDC 15:31 → ACINP 15:32 → SDC 17:49 → MS3 17:49
PROVIDERS: Admitting Provider Surgery; Emergency Provider Emergency Medicine; PCP Internal Medicine; Visit Provider Surgery
PROC: 0DTJ4ZZ Resection of Appendix, Percutaneous Endoscopic Approach (ICD-10-PCS; CPT 44970; principal; 2024-09-06 17:00)
DX: K35.80 Unspecified acute appendicitis (principal); N39.0 Urinary tract infection, site not specified; I10 Essential (primary) hypertension; Z79.82 Long term (current) use of aspirin; Z79.899 Other long term (current) drug therapy; F17.210 Nicotine dependence, cigarettes, uncomplicated; Z23 Encounter for immunization
CPT/HCPCS: 44970; 00840; 74177; 80048; 80053; 81001; 83690; 85025; 87077; 87086; 87088; 87186; 88304; 90662; 94668; 96365; 96366; 96375; 99221; 99284; Q9967; A4216; G0378; J2405

== ENCOUNTER 2024-10-11 03:41 | Inpatient (IN) | payer MEDICARE, SELFPAY ==
[2024-10-11] VITALS (19 sets, daily range): BP systolic 88–143; BP diastolic 47–80; PULSE 58–108; RESP 16–33; TEMP 35.8–37.4; O2SAT 85–96; BMI 23.6; BMI 23.5
--- NOTE | 2024-10-11 04:06 | EKG12_ITS ---
Test Reason : SOB Blood Pressure : */* mmHG Vent. Rate : 82 BPM Atrial Rate : 82 BPM P-R Int : 146 ms QRS Dur : 90 ms QT Int : 454 ms P-R-T Axes : 43 -31 49 degrees QTcB Int : 530 ms Normal sinus rhythm Left axis deviation Septal infarct (cited on or before 18-Oct-2020) ST & T wave abnormality, consider anterolateral ischemia Prolonged QT Abnormal ECG Confirmed by ALIZE VALDES, SWAPNIL ([id number]), editor sound PORTIA PARK ([id number]) on 10/13/2024 8:31:59 AM Referred By: Confirmed By: SWAPNIL HERRMANN MD
--- NOTE | 2024-10-11 04:06 | CT_ITS ---
PROCEDURE: CTA CHEST W/WO CONTRAST 10/11/2024 REASON FOR EXAM: CHEST PAIN WITH PMHX OF AAA TECHNIQUE: CTA imaging of the chest with intravenous contrast. Coronal and Sagittal reconstruction series were provided. Maximum intensity projection (MIPs) Volume rendering and CONTRAST: 100 cc Isovue 370 IV One or more dose reduction techniques were used (e.g., Automated exposure control, adjustment of the mA and/or kV according to patient size, use of iterative reconstruction technique). RADIATION DOSE SUMMARY: CTDlvol: 13.48 mGy DLP: 296.01 mGycm FINDINGS: No evidence of filling defect to suggest pulmonary embolism. Ectatic thoracic aorta with atherosclerotic changes without aneurysm or dissection. Alexis artifact from bolus and motion limits the great vessel evaluation. Difficult to visualize the proximal left vertebral artery to definitely contain contrast. The right visualized vertebral artery appears dominant and at the C4 level contrast can be seen filling the left cervical vertebral artery in the foramin transversarium. Coronary calcifications. No pericardial or pleural effusion. Findings are consistent with a multifocal pneumonia with a greater process in the right middle lobe with consolidative changes throughout the majority of the lobe and some patchy areas extending into the adjacent right upper lobe and small patchy areas throughout the right lower lobe. Very small nodular ground-glass opacities within the left lower lobe. Areas of scarring or atelectasis at the bases. The central airways appear patent. Sequela of previous granulomatous disease. Visualized osseous structures appear within limits. CT/CTA Chest W/WO Contrast IMPRESSION: No evidence of filling defect to suggest pulmonary embolism. Findings are consistent with bilateral multifocal areas of pneumonia greatest a t the right middle lobe as described above. Clinically correlate and follow-up to resolution. Reading Location: [id number]
[2024-10-11] MEDS: MethylPREDNISolone 125 MG/2 ML Vial IV (04:15)
[2024-10-11] MEDS: fentaNYL 100 MCG/2 ML Ampul 50 MCG IV ×2 (04:15→05:31)
[2024-10-11] MEDS: Ondansetron 4 MG/2 ML Vial IV (04:15)
[2024-10-11] MEDS: 0.9% Normal Saline (1000mL) 1,000 ML 999 ML IV (04:15)
[2024-10-11 04:19] LABS: Hematocrit 41.8 % (37-47); Hemoglobin 14.4 g/dL (12.0-15.0); Mean Corp Hgb Conc 34.4 g/dL (32-36); Mean Corpuscular Hgb 31.5 pg (27.0-32.0); Mean Corpuscular Volume 91.5 fL (81-99); Mean Platelet Vol. 9.8 fl (6.2-12.0); POSITIVE COUNT YES; POSITIVE DIFFERENTIAL YES; POSITIVE MORPHOLOGY YES; Platelet Count 208 K/mm3 (150-450); RBC Distribution Width CV 17.1 % (11.6-14.6); RBC Distribution Width SD 55.5 fl (35.1-43.9); Red Blood Count 4.57 M/mm3 (4.2-5.4); White Blood Count 24.1 K/mm3 (4.4-11.0)
[2024-10-11 04:29] LABS: International Normalized Ratio 1.4; Partial Thromboplast Time 30.1 Seconds (24.1-36.2); Prothrombin Time (Protime)PT. 17.6 SECONDS (11.7-14.9)
[2024-10-11 04:33] LABS: Differential Indicated MANUAL DIFF
[2024-10-11] MEDS: Ipratropium/Albuterol Sulfate 3 ML AMPUL.NEB INHALATION ×4 (04:36→19:12)
[2024-10-11 04:41] LABS: Anion Gap 16 (5-15); BUN 18 mg/dL (4-19); BUN/Creat Ratio 19.7 RATIO (10-20); Calcium,Total 8.7 mg/dL (7.6-11.0); Carbon Dioxide 20.2 mmol/L (21.0-32.0); Chloride 103 mmol/L (98-108); EST Glomerular Filtration Rate 68 (>60); Estimated Creatinine Clearance 53.67 ml/min (50-250); Glucose 139 mg/dL (70-99); Magnesium 1.1 mg/dL (1.5-2.2); Potassium 2.8 mmol/L (3.3-5.1); Sodium Level 139 mmol/L (133-145)
[2024-10-11 05:11] LABS: Lymphocyte 3 % (19-41); Monocyte 3 % (0-10); Neutrophil-Band 31 % (0-5); Neutrophil-Segmented 63 % (47-70); Platelet Estimate ADEQUATE (ADEQ); Total Cells Counted 100 (MANUAL DIFF)
[2024-10-11 05:12] LABS: Absolute Neutrophil Count 22.7 X10^3/uL (2.0-7.7)
[2024-10-11 05:13] LABS: Differential Comment SCANNED
[2024-10-11] MEDS: Piperacil/Tazobactam 3.375 GM in 0.9% Normal Saline (50mL MB+) 50 ML IV ×3 (05:34→21:38)
--- NOTE | 2024-10-11 05:34 | PCM.HP.STD ---
HPI - General General Date of Admission: 10/11/24 Date of Service: 10/11/24 Chief Complaint: Shortness of breath and nausea with vomiting HPI Narrative CHARLIE ESTRADA, is a 73 F who presented to [facility] ED on with worsening shortness of breath and nausea with vomiting. Patient has history of mild COPD, is not on home oxygen. No prior history of COPD exacerbations requiring hospitalization. She was hospitalized last month with acute appendicitis s/p laparoscopic appendectomy. Notes that she did well below surgery and was discharged home without issue. She lives at home with 3 other family members. Notes that over the past few days she has had some upper respiratory symptoms and mild shortness of breath, but then last night it became much worse and she began to have episodes of nausea with vomiting. Denies any history of aspiration or known aspiration events. Because of the symptoms, she came into the ED for further evaluation. On arrival to the ED she was noted to hypoxic to the low to mid 80s on room air and was breathing at 30-35 times per minute. She was tachycardic to the low 100s and had a low-grade fever of 99.4F. She was placed on supplemental oxygen and given a breathing treatment with moderate improvement in her work of breathing. CTA chest showed no PE but did show bilateral multifocal pneumonia with consolidation greatest in the right middle lobe. Labs notable for WBC count of 24, potassium 2.8 and magnesium 1.1. She was given doses of IV antibiotics and steroids for suspected pneumonia with COPD exacerbation, and hospitalist was contacted for admission. I saw the patient at bedside in the ED. Patient was fatigued appearing but otherwise laying back comfortably in bed and breathing comfortably on 4 L nasal cannula at rest. She notably was reporting right-sided chest pain when she came in as well and was given a dose of IV pain medication with some improvement. Noted to me that she felt very fatigued and simply wanted to sleep. She denied any cough or sputum production to this point. She is a current smoker, smokes about 5 cigarettes/day. States she was smoking more heavily than this until her appendectomy 1 month ago. She also reports drinking vodka but states she only has about 3 drinks per week. She currently denies any fevers or chills. No other acute concerns at this time. FOR[facility]LY [facility], [facility] Medical History (Updated 10/11/24 @ 06:[address] Nikolai Mosteller, DO) Pleural effusion on left Atelectasis of left lung Postoperative urinary retention Situational insomnia Chronic anxiety Preop exam for internal medicine Acute bronchitis, unspecified COVID-19 Contact with and (suspected) exposure to other viral communicable diseases Elevated MCV Elevated hemoglobin Hypokalemia Enlarged thyroid gland Uncontrolled hypertension Breast lump Hearing problem AAA (abdominal aortic aneurysm) Rash Knee pain, chronic Hay fever Hemorrhoids HTN (hypertension) Home Medications ?Medication ?Instructions ?Recorded ?Last Taken ?Type aspirin 81 mg tablet,delayed 81 mg PO QDAY 07/28/24 Unknown History release (Adult Low Dose Aspirin) Allergy/AdvReac Type Severity Reaction Status Date / Time NSAIDS (Non-Steroidal AdvReac Nausea Verified 10/11/24 03:43 Anti-Inflamma Family History Other Anxiety with depression Arthritis Asthma Diabetes Hyperlipemia Hypertension Surgical History (Updated 10/11/24 @ 06:[address] Preston Jimenez, DO) History of appendectomy Status post AAA (abdominal aortic aneurysm) repair History of AAA (abdominal aortic aneurysm) repair Cataract fragments in eye following surgery Social History Smoking Status: Current every day smoker tobacco type: cigarettes alcohol intake: current alcohol intake frequency: holidays/special occasions only substance use type: does not use ROS Constitutional Constitutional: Reports fatigue and malaise; Denies chills, fever(s) or weakness Eyes Eyes: Denies change in vision Cardiovascular Cardiovascular: Reports dyspnea on exertion; Denies chest pain, edema or palpitations Respiratory/Chest Respiratory/Chest: Reports cough, shortness of breath at rest and shortness of breath with exertion; Denies productive cough or wheezing Gastrointestinal Gastrointestinal: Reports nausea and vomiting; Denies abdominal pain, constipation or diarrhea Genitourinary Genitourinary: Denies dysuria Musculoskeletal Musculoskeletal: Denies arthralgias or myalgias Neurologic Neurologic: Denies dizziness or headache(s) Vital Signs Vital Signs Vital Signs: 10/11/24 03:43 10/11/24 03:43 10/11/24 03:48 Temperature 99.4 F H 99.4 F H Temperature Source Oral Oral Pulse Rate 108 H 105 H Respiratory Rate 26 H 26 H Blood Pressure 143/80 H 143/80 H Blood Pressure Mean 101 101 Pulse Ox 85 90 90 Oxygen Delivery Method Room Air Nasal Cannula Nasal Cannula Oxygen Flow Rate (L/min) 2 10/11/24 04:15 10/11/24 04:20 10/11/24 04:36 Temperature Temperature Source Pulse Rate 86 Respiratory Rate 33 H Blood Pressure Blood Pressure Mean Pulse Ox 85 92 Oxygen Delivery Method Nasal Cannula Nasal Cannula Oxygen Flow Rate (L/min) 2 4 10/11/24 04:36 10/11/24 04:48 Temperature 98.6 F Temperature Source Oral Pulse Rate 86 Respiratory Rate 18 Blood Pressure 119/61 Blood Pressure Mean 80 Pulse Ox 90 91 Oxygen Delivery Method Nasal Cannula Nasal Cannula Oxygen Flow Rate (L/min) 4 4 Weight Weight: 66.4 kg Body Mass Index (BMI) 23.6 Physical Exam Const alert, oriented x3, no apparent distress and average body habitus Constitutional Narrative: Elderly female, fatigued appearing but otherwise laying back comfortably in bed, conversing normally and in no acute distress. General Appearance: cooperative and comfortable HEENT normocephalic, head/scalp atraumatic, hearing grossly normal bilaterally, nasal mucous membranes and turbinates normal and moist oral mucous membranes Eyes PERRL, EOMs intact bilaterally and conjunctivae normal Neck full ROM Chest inspection of chest normal Resp normal respiratory effort and no use of accessory muscles Resp Narrative: Breathing comfortably on 4 L nasal cannula at rest. Mild wheezing noted in upper airways bilaterally and mild crackles noted in right middle lung area. Otherwise good breath sounds bilaterally throughout. Cardio regular rate, regular rhythm, no murmurs and peripheral pulses 2+ throughout GI normal to inspection, nondistended, normoactive bowel sounds, soft to palpation, non-tender and non-distended Back/Spine normal ROM Extremity normal to inspection, full ROM and no pedal edema Skin no rashes or lesions noted Psych mental status grossly normal Results Lab / Micro Data 10/11/24 04:09 10/11/24 04:09 Labs: Laboratory Results - last 24 hr 10/11/24 04:09: WBC 24.1 H, RBC 4.57, Hgb 14.4, Hct 41.8, MCV 91.5, MCH 31.5, MCHC 34.4, RDW Std Deviation 55.5 H, RDW Coeff of Silvia 17.1 H, Plt Count 208, MPV 9.8, Neut % (Auto) Not Reportable, Absolute Neuts (auto) 22.7 H, Absolute Lymphs (auto) 0.70 L, Total Counted 100, Neutrophils % (Manual) 63, Band Neutrophils % 31 H, Lymphocytes % (Manual) 3 L, Monocytes % (Manual) 3, Differential Comment SCANNED, Platelet Estimate ADEQUATE, PT 17.6 H, INR 1.4, APTT 30.1, Sodium 139, Potassium 2.8 L, Chloride 103, Carbon Dioxide 20.2 L, Anion Gap 16 H, BUN 18, Creatinine 0.90, Estim Creat Clear Calc 53.67, Est GFR (MDRD) Non-Af 68, BUN/Creatinine Ratio 19.7, Glucose 139 H, Lactic Acid 2.0, Calcium 8.7, Magnesium 1.1 L Micro: Microbiology 10/11/24 04:20 Mucosa - Nose SARS-CoV-2, Influenza & RSV (PCR) - Final Assessment & Plan Assessment/Plan (1) Multifocal pneumonia: (2) COPD with acute exacerbation: (3) Hypoxia: PLAN: Plan Patient is a 73-year-old female who presented [facility] ED on 10/11/24 with worsening shortness of breath and nausea with vomiting. 1. Community-acquired pneumonia and mild COPD exacerbation with hypoxia ? Admit under inpatient status to PCU. CTA chest on admit showed bilateral multifocal pneumonia with consolidation greatest in the right middle lobe. WBC count 24 and low-grade fever noted in ED. Not on home oxygen, no prior history of severe COPD exacerbations. Suspect patient was at high risk for developing pneumonia given recent appendicitis and likely shallow breathing postoperatively, along with recent AAA repair in May and need for supplemental oxygen postrepair due to significant atelectasis. Sputum culture and urine antigens ordered. Will treat with IV antibiotics, IV steroids and scheduled DuoNebs for now. Wean supplemental oxygen as able. 2. Hypokalemia, hypomagnesemia ? Potassium 2.8, magnesium 1.1 on admit. Phosphorus pending. Suspect primarily due to GI losses and recent poor p.o. intake. However, alcohol use could also be contributing. Will replete as needed. 3. Tobacco use ? Current smoker, smokes about 5 cigarettes/day. Has been smoking only 5/day since her appendectomy 1 month ago. Longtime smoker and prior to that procedure was smoking 10 to 20 cigarettes daily. Denied need for nicotine replacement therapy at this time. Encouraged cessation on discharge. 4. Alcohol use ? Patient reports drinking about 3 glasses of vodka on a weekly basis. However, have some concern she may be underreporting this given her electrolytes on admission. Will place on [facility] protocol without medications for now. 5. Hypertension ? Per recent notes, was on amlodipine and metoprolol prior to AAA repair. Blood pressures were running somewhat low after that so these were held. Appears that Lopressor was restarted at 25 mg twice daily on 07/28. Will continue home Lopressor at this time. 6. Recent acute appendicitis s/p appendectomy ? Had laparoscopic appendectomy done with Dr. Smiley on 09/06. Tolerated procedure well, no intraoperative or postoperative complications. Discharged home on 09/07 without issue. 7. History of AAA with recent repair ? Had type IV thoracoabdominal AAA repair with graft done at [facility] on 05/27. Did have postoperative hypoxia requiring home supplemental oxygen for a few weeks. Was suspected this was due to atelectasis. Has been off supplemental oxygen now since mid June. No inpatient needs, continue outpatient follow-up. DVT prophylaxis: Lovenox CODE STATUS: Full code, verified Expected disposition: Home, 2 to 3 days Total clinical time spent by myself addressing the patient's medical issues, reviewing all the data, and collaborating with patient's care team: 75 minutes. Charges/Coding Visit Charges Inpatient E&M: 10725 Init Hosp L3
--- NOTE | 2024-10-11 05:44 | EX.ED.DYSGE1 ---
HPI History of Present Illness Chief Complaint: Nausea/Vomiting Informant: patient and family Narrative Narrative: Patient is a 73-year-old female with past medical history of abdominal aortic aneurysm status postrepair in May 2024 and COPD but no reported need for supplemental oxygen. Patient reports she has had chronic back pain ever since her aneurysm repair. However in the last 2 to 3 days she has had increased congestion cough shortness of breath and back pain. She states that the symptoms got severe tonight where she felt she could not take it any longer and therefore she was brought into the ER for evaluation. She does state that she has been in and out of nursing homes recently visiting friends and that someone from a custodial who was recently discharged from there has been living with her and he has been sick [facility] Medical History (Updated 10/11/24 @ 06:[address] Preston Jimenez DO) Pleural effusion on left Atelectasis of left lung Postoperative urinary retention Situational insomnia Chronic anxiety Preop exam for internal medicine Acute bronchitis, unspecified COVID-19 Contact with and (suspected) exposure to other viral communicable diseases Elevated MCV Elevated hemoglobin Hypokalemia Enlarged thyroid gland Uncontrolled hypertension Breast lump Hearing problem AAA (abdominal aortic aneurysm) Rash Knee pain, chronic Hay fever Hemorrhoids HTN (hypertension) Home Medications ?Medication ?Instructions ?Recorded ?Last Taken ?Type aspirin 81 mg tablet,delayed 81 mg PO QDAY 07/28/24 Unknown History release (Adult Low Dose Aspirin) Allergy/AdvReac Type Severity Reaction Status Date / Time NSAIDS (Non-Steroidal AdvReac Nausea Verified 10/11/24 03:43 Anti-Inflamma Family History Other Anxiety with depression Arthritis Asthma Diabetes Hyperlipemia Hypertension Surgical History (Updated 10/11/24 @ 06:[address] Preston Jimenez DO) History of appendectomy Status post AAA (abdominal aortic aneurysm) repair History of AAA (abdominal aortic aneurysm) repair Cataract fragments in eye following surgery Social History Smoking Status: Current every day smoker tobacco type: cigarettes alcohol intake: current alcohol intake frequency: holidays/special occasions only substance use type: does not use ROS ROS ED Constitutional Constitutional ED: Denies chills or fever(s) Eyes Eyes: Denies change in vision ENT ENT ED: Denies sore throat Cardiovascular Cardiovascular: Reports racing heartbeat; Denies chest pain or palpitations Respiratory/Chest Respiratory/Chest: Reports cough and dyspnea Gastrointestinal Gastrointestinal: Denies abdominal pain, diarrhea, nausea or vomiting Genitourinary Genitourinary ED: Denies dysuria Musculoskeletal Musculoskeletal: Reports back pain Integumentary Denies rash Neurologic Neurologic: Denies headache(s) Hematologic/Lymphatic Hematologic/Lymphatic: Denies easy bleeding or easy bruising Allergic/Immunologic Allergic/Immunologic ED: Denies mouth swelling or tongue swelling EXAM Physical Exam Const Vital Signs: 10/11/24 03:43 10/11/24 03:43 10/11/24 03:48 Temperature 99.4 F H 99.4 F H Temperature Source Oral Oral Pulse Rate 108 H 105 H Respiratory Rate 26 H 26 H Blood Pressure 143/80 H 143/80 H Blood Pressure Mean 101 101 Pulse Ox 85 90 90 Oxygen Delivery Method Room Air Nasal Cannula Nasal Cannula Oxygen Flow Rate (L/min) 2 10/11/24 04:15 10/11/24 04:20 10/11/24 04:36 Temperature Temperature Source Pulse Rate 86 Respiratory Rate 33 H Blood Pressure Blood Pressure Mean Pulse Ox 85 92 Oxygen Delivery Method Nasal Cannula Nasal Cannula Oxygen Flow Rate (L/min) 2 4 10/11/24 04:36 10/11/24 04:48 Temperature 98.6 F Temperature Source Oral Pulse Rate 86 Respiratory Rate 18 Blood Pressure 119/61 Blood Pressure Mean 80 Pulse Ox 90 91 Oxygen Delivery Method Nasal Cannula Nasal Cannula Oxygen Flow Rate (L/min) 4 4 Positive well nourished and well developed Constitutional Narrative: Patient is in respiratory distress with tachypnea and accessory muscle use General Appearance ED: well developed and pallor HEENT HEENT Narrative: No tongue or lip swelling no oral lesions no airway edema or compromise No secondary findings in the posterior pharynx to suggest infection Eyes PERRL and EOMs intact bilaterally General Eye ED: Negative for scleral icterus Neck supple and no JVD Resp Resp Narrative: Patient is in moderate respiratory distress with tachypnea and accessory muscle use Breath sounds are diminished throughout with diffuse inspiratory and expiratory wheezing. There is rhonchi noted diffusely as well but greatest in the right Cardio regular rhythm Rate: tachycardic and other Other Details: Tachycardic rate with regular rhythm Radial and carotid pulses are equal and symmetric GI normal to inspection, nondistended, normoactive bowel sounds, non-tender, non-distended and no masses GI Narrative: No voluntary guarding no rigidity or pulsatile mass No fluid wave noted Auscultation: normoactive bowel sounds Palpation: soft Extremity normal to inspection Extremity Narrative: No asymmetric edema no pitting edema negative Homans' sign bilaterally Neuro oriented x3, CN's II-XII intact bilaterally and no sensory deficits noted Sensorium / Orientation: alert Motor Exam: strength 5/5 throughout Psych Mood & Affect: anxious Skin no rashes or lesions noted General Skin Exam: pallor; Negative for jaundice MDM MDM MDM Narrative Medical decision making narrative: Patient arrived to the ER hypertensive and tachycardic with respiratory distress. She was tachypneic with accessory muscle use and a room air pulse ox was low at approximately 85%. With her past medical history of COPD as well as aortic aneurysm there is concern for pneumonia versus pneumothorax versus pulmonary embolus versus dissection. Secondary to his basic blood work was obtained and patient received a CTA of her chest. Lab work showed leukocytosis at 24.1 with left shift and high band count concerning for systemic infection. She was started on vancomycin and Zosyn secondary to this with concern for infection and blood cultures were obtained as well. With IV steroids breathing medications and pain control her work of breathing improved and her pulse ox improved to 92 to 93% on 5 to 6 L nasal cannula. CTA confirmed pneumonia without dissection or PE. At this time based on her multifocal pneumonia as well as hypoxia and no access to oxygen at home she will need admitted to the hospital for continued oxygen therapy as well as IV antibiotics. Secondary to this the case was discussed with the hospitalist who agrees to accept the patient for further care History & Record Review Discussion w/independent historian: Patient and Family Lab Data Attestation: I reviewed the patient's lab results. Labs: Laboratory Results - last 24 hr 10/11/24 04:09 WBC 24.1 H RBC 4.57 Hgb 14.4 Hct 41.8 MCV 91.5 MCH 31.5 MCHC 34.4 RDW Std Deviation 55.5 H RDW Coeff of Silvia 17.1 H Plt Count 208 MPV 9.8 Neut % (Auto) Not Reportable Absolute Neuts (auto) 22.7 H Absolute Lymphs (auto) 0.70 L Total Counted 100 Neutrophils % (Manual) 63 Band Neutrophils % 31 H Lymphocytes % (Manual) 3 L Monocytes % (Manual) 3 Differential Comment SCANNED Platelet Estimate ADEQUATE PT 17.6 H INR 1.4 APTT 30.1 Sodium 139 Potassium 2.8 L Chloride 103 Carbon Dioxide 20.2 L Anion Gap 16 H BUN 18 Creatinine 0.90 Estim Creat Clear Calc 53.67 Est GFR (MDRD) Non-Af 68 BUN/Creatinine Ratio 19.7 Glucose 139 H Lactic Acid 2.0 Calcium 8.7 Magnesium 1.1 L Radiography Diagnostic Testing: Clinical Impression(s) from Imaging Studies Chest CTA 10/11/24 04:06 IMPRESSION: No evidence of filling defect to suggest pulmonary embolism. Findings are consistent with bilateral multifocal areas of pneumonia greatest at the right middle lobe as described above. Clinically correlate and follow-up to resolution. Reading Location: [id number] Management Discussion w/another healthcare provider: Hospitalist Critical Care Time Critical Care Time: Yes Critical care time (excluding procedures): Discussing w/Patient &/or Family/Rubber Trimmer and - (Critical care time of 31 minutes) Discharge Plan Dx/Rx/DC Orders Clinical Impression: COPD with acute exacerbation, Acute respiratory failure with hypoxia, Status post AAA (abdominal aortic aneurysm) repair, Multifocal pneumonia Disposition Disposition: Acute Care Hospital [facility] Discharge Date/Time: 10/11/24 06:16
[2024-10-11 06:33] LABS: Phosphorus 3.1 mg/dL (2.7-4.5)
[2024-10-11] MEDS: Vancomycin IV 1,000 MG/200 ML BAG 200 MG IV (07:01)
[2024-10-11 08:16] LABS: Reflex Lactate? Y
[2024-10-11] MEDS: Potassium Chloride Oral Tablet 20 MEQ 60 MEQ PO (08:35)
[2024-10-11] MEDS: Aspirin E.C. 81 MG Tablet PO (08:35)
[2024-10-11] MEDS: Ceftriaxone 1 GM/50 ML BAG IV (08:41)
[2024-10-11] MEDS: Enoxaparin 40 MG/0.4 ML Syringe SC (08:46)
[2024-10-11] MEDS: oxyCODONE 5 MG Tablet PO ×3 (09:17→21:51)
[2024-10-11] MEDS: Azithromycin 500 MG in 0.9% Normal Saline (250mL Bag) 250 ML 255 MG IV (09:18)
--- NOTE | 2024-10-11 10:15 | ECHOCS_ITS ---
Reason For Study Reason For Study: DYSPNEA/SOB Procedure This was a 2D Doppler, Color Flow transthoracic echocardiogram. The study was technically difficult. Due to body habitus. Contrast injection was performed. Exam performed portable in patient room. Left Ventricle Normal LV size. The left ventricular ejection fraction is 60 %. Stage 1 diastolic dysfunction. No regional wall motion abnormalities noted. Right Ventricle Normal RV size. Normal systolic function. Atria Normal left atrium. Normal right atrium. Mitral Valve Normal mitral valve. Tricuspid Valve Normal tricuspid valve. Mild tricuspid valve insufficiency. Aortic Valve Trisinus/trileaflet aortic valve. Pulmonic Valve Normal pulmonic valve. Great Vessels Normal aortic root. The pulmonary artery is normal size. Inferior vena cava collapse with respiration. Pericardium/Pleural No pericardial effusion. Medication Diluted definity 3.0ml given slow IV push to enhance endocardial definition. MMode/2D Measurements & Calculations LVIDd: 4.8 cm IVSd: 0.96 cm Ao root diam: 3.3 cm LVIDs: 2.7 cm LVPWd: 1.0 cm FS: 44.3 % LAV(MOD-bp): 31.5 ml LVAd ap4: 13.0 cm2 SV(MOD-sp4): 16.1 ml LAV(MOD-bp) Indexed: 18.0 ml/m2 LVLd ap4: 5.3 cm SI(MOD-sp4): 9.2 ml/m2 LAV(MOD-sp2): 40.3 ml EDV(MOD-sp4): 27.7 ml LAV(MOD-sp4): 22.5 ml EDV(sp4-el): 27.0 ml LVAs ap4: 7.1 cm2 LVLs ap4: 4.0 cm ESV(MOD-sp4): 11.6 ml ESV(sp4-el): 10.7 ml EF(MOD-sp4): 58.2 % EF(sp4-el): 60.4 % SV(sp4-): 16.3 ml LA A4 area: 10.7 cm2 LA dimension(2D): 3.2 cm TAPSE: 1.7 cm Time Measurements MV dec time: 0.20 sec Doppler Measurements & Calculations MV E max gorge: 58.2 cm/sec Lat Peak E' Gorge: 8.3 cm/sec Med Peak E' Gorge: 5.4 cm/sec MV A max gorge: 61.7 cm/sec E/E' lat: 7.0 E/E' med: 10.9 MV E/A: 0.94 MV V2 max: 82.0 cm/sec MV P1/2t max gorge: 60.4 cm/sec Ao V2 max: 120.4 cm/sec MV max P.7 mmHg MV P1/2t: 53.4 msec Ao max P.8 mmHg MV V2 mean: 36.3 cm/sec Ao V2 mean: 84.7 cm/sec MV mean P.65 mmHg MV dec slope: 331.3 cm/sec2 Ao mean P.2 mmHg MV V2 VTI: 19.4 cm MVA(P1/2t): 4.1 cm2 Ao V2 VTI: 25.5 cm AV (velocity ratio): 0.86 LV V1 max: 102.0 cm/sec PA V2 max: 89.6 cm/sec TR max gorge: 205.5 cm/sec LV V1 max P.2 mmHg PA V2 mean: 60.8 cm/sec TR max P.9 mmHg LV V1 mean P.3 mmHg PA V2 VTI: 17.3 cm LV V1 mean: 72.5 cm/sec LV V1 VTI: 22.0 cm ECHO/Echo Complete W/ Contrast Interpretation Summary Normal LV size. The left ventricular ejection fraction is 60 %. Stage 1 diastolic dysfunction. Contrast injection was performed. Ordering Physician: Neisha Boston Referring Physician: Lubna Dey Performed By: Codie Pantoja RDCS, RVT
[2024-10-11 10:39] LABS: Pro- Brain NATRIURETIC PEPTIDE 5789 pg/mL (<=900)
[2024-10-11] MEDS: Magnesium Sulfate 4gm/100mL 4 GM/100 ML IV.SOLN. IV (12:08)
[2024-10-11] MEDS: 0.9% Normal Saline (1000mL) 1,000 ML 150 ML IV (12:21)
[2024-10-11] MEDS: Metoprolol Tartrate 25 MG Tablet PO (12:23)
--- NOTE | 2024-10-11 13:37 | PN_ITS ---
Subjective Subjective Patient seen and examined. She complained of feeling short of breath. She is up to 10 L of oxygen. She tells me that yesterday she vomited after eating her breakfast and subsequently started feeling short of breath. I therefore suspect the patient likely aspirated. She does not usually wear oxygen at home. WBC today is 24.1 and her lactic acid was also elevated at 4. Review of systems otherwise negative. Objective Data Objective Data Vital Signs: Vital Signs Temp Pulse Resp BP Pulse Ox O2 Del Method O2 Flow Rate 97.9 F 84 20 H 122/74 H 96 Room Air 10 10/11/24 10:30 10/11/24 12:23 10/11/24 11:02 10/11/24 10:30 10/11/24 10:30 10/11/24 10:30 10/11/24 08:30 Oxygen Flow Rate (L/min) 10 Oxygen Delivery Method Room Air Weight: 145 lb 8.081 oz Body Mass Index (BMI) 23.5 Intake & Output: Intake and Output for Last 24 Hours 10/09/24 10/10/24 10/11/24 23:59 23:59 23:59 Intake Total 1865 / 1865 Balance 1865 / 1865 Lab / Micro Data 10/11/24 04:09 10/11/24 04:09 Labs: Laboratory Results - last 24 hr 10/11/24 04:09: WBC 24.1 H, RBC 4.57, Hgb 14.4, Hct 41.8, MCV 91.5, MCH 31.5, MCHC 34.4, RDW Std Deviation 55.5 H, RDW Coeff of Silvia 17.1 H, Plt Count 208, MPV 9.8, Neut % (Auto) Not Reportable, Absolute Neuts (auto) 22.7 H, Absolute Lymphs (auto) 0.70 L, Total Counted 100, Neutrophils % (Manual) 63, Band Neutrophils % 31 H, Lymphocytes % (Manual) 3 L, Monocytes % (Manual) 3, Differential Comment SCANNED, Platelet Estimate ADEQUATE, PT 17.6 H, INR 1.4, APTT 30.1, Sodium 139, Potassium 2.8 L, Chloride 103, Carbon Dioxide 20.2 L, Anion Gap 16 H, BUN 18, Creatinine 0.90, Estim Creat Clear Calc 53.67, Est GFR (MDRD) Non-Af 68, BUN/Creatinine Ratio 19.7, Glucose 139 H, Lactic Acid 2.0, Calcium 8.7, Phosphorus 3.1, Magnesium 1.1 L, NT pro BNP II 5789 H 10/11/24 08:25: Lactic Acid 4.0 H* Micro: Microbiology 10/11/24 04:20 Mucosa - Nose SARS-CoV-2, Influenza & RSV (PCR) - Final Radiography Diagnostic Testing: Radiology Impression Chest CTA 10/11/24 04:06 IMPRESSION: No evidence of filling defect to suggest pulmonary embolism. Findings are consistent with bilateral multifocal areas of pneumonia greatest at the right middle lobe as described above. Clinically correlate and follow-up to resolution. Reading Location: [id number] Echocardiogram 10/11/24 10:15 Interpretation Summary Normal LV size. The left ventricular ejection fraction is 60 %. Stage 1 diastolic dysfunction. Contrast injection was performed. Ordering Physician: Neisha Boston Referring Physician: Lubna Dey Performed By: Codie Pantoja, RENAE, RVT Physical Exam Const alert, oriented x3 and no apparent distress General Appearance: cooperative and well developed HEENT normocephalic, head/scalp atraumatic, moist oral mucous membranes, oropharynx normal and gingiva normal Eyes PERRL and EOMs intact bilaterally Neck no lymphadenopathy and supple General: trachea midline Lymph Lymphatic: no lymphadenopathy noted Resp Resp Narrative: moderately diminished breath sounds in mid and lower lung nunez, no wheezes or crackles. On 10L of oxygen by nasal canula. Cardio regular rate, regular rhythm, S1 normal heart sound, S2 normal heart sound and no murmurs GI normal to inspection, nondistended, normoactive bowel sounds, soft to palpation, non-tender and non-distended Extremity normal capillary refill, no clubbing, cyanosis or edema and no calf tenderness General Extremity: no tenderness to palpation of joints or extremities Skin General Skin Exam: no breakdown Neuro CN's II-XII intact bilaterally, no focal motor deficits and no sensory deficits noted Motor Exam: strength 5/5 throughout and general weakness Psych thought process normal and cooperative Appearance: appropriate Assessment & Plan Assessment/Plan (1) Hypoxia: (2) Multifocal pneumonia: (3) Acute respiratory failure with hypoxia: PLAN: Plan #Acute hypoxic respiratory failure due to probable aspiration pneumonia * Now requiring 10 L of oxygen. * Says she vomited after her breakfast yesterday and subsequently started feeling short of breath. WBC is elevated at 24.1 and her lactic acid was 4 also today. * CT chest showed evidence of multifocal pneumonia. * On IV ceftriaxone and azithromycin. Consult pulmonology. Will broaden antibiotics to IV Zosyn. * Breathing treatments and bronchodilators. Titrate oxygen to maintain saturation above 90%. Will get ABG. * #Sepsis due to aspiration pneumonia: Management as above. #Hypokalemia: Potassium is 2.8. Will replace aggressively and trend. #Probable acute heart failure: * EF is unknown. proBNP is 5789 and 2D echo showed EF of 60% with stage I diastolic dysfunction and no regional wall motion abnormalities noted. He has stage I diastolic dysfunction. * Will diurese with IV Lasix 40 mg twice daily as fluid overload is likely also contributing to the hypoxia. * Hypertension: on metoprolol DVT prophylaxis: lovenox COde status: full code Charges/Coding Visit Charges Inpatient E&M: 38404 Subs Hosp L3
--- NOTE | 2024-10-11 13:39 | CASEMGMT ---
Social Work SW met w/pt in room, reviewed prior level of function and anticipated discharge plan. Pt spoke about her surgery in May and her declining health since then, support offered to pt. PCP: Dr. Dey Specialists: Dr. Odom, vascular doctor, Dr. Sim--at [facility], was heart surgeon when pt had surgery in May Pharmacy: [facility] in [place] Insurance/prescription benefit: AARP Medicare, [facility] for scripts LW/POA: Pt states her granddaughter Rubi is her POA, she completed all the documents before her surgery in May. SW asked her to have Rubi bring in the POA document as able LNOK: Uncle, granddaughter Living arrangements: Pt lives w/her uncle Adrian(who is 84), her granddaughter Rubi and Rubi's boyfriend Nader in a mobile home, 3 steps to enter. Prior level of function: Pt is independent with all ADLs, cooks, cleans, drives. Her Uncle Adrian just got out of [employer] and has HHC at present with [facility]. Her granddaughter Rubi is very supportive, as is Rubi's boyfriend. Pt states he helps w/her uncle. DME: None. Pt had O2 for a short time after her surgery, she thinks it was through [facility] HHC/SNF: No history of either. Pt adamant will not go to SNF. Plan: Home. Pt is open to HHC if needed, does not require a list at this time, would want to use the same HHC as her uncle, Jayesh. If home O2 needed, pt does not have a preference, would like something close to here, does not want [facility] again. She is agreeable to [facility] should it be needed. SW/CM will continue to follow, will make referrals for HHC and home O2 if warranted. It is anticipated pt will be here through the weekend. MIGUEL Agudelo
[2024-10-11] MEDS: Furosemide 40 MG/4 ML Vial IV (15:25)
[2024-10-11] MEDS: Methylprednisolone Sod Succ 40 MG/ML VIAL IV ×2 (15:26→21:39)
--- NOTE | 2024-10-11 16:08 | PCMCONS.TICU ---
HPI Consult Data Date of Consult: 10/11/24 HPI Narrative Reason for Consultation: Aspiration PNA; acute hypoxemic respiratory failure HPI Narrative: 73yo who presented to [facility] ED on with worsening shortness of breath and nausea with vomiting. Patient has history of mild COPD, is not on home oxygen. No prior history of COPD exacerbations requiring hospitalization. She was hospitalized last month with acute appendicitis s/p laparoscopic appendectomy. Notes that she did well below surgery and was discharged home without issue. She lives at home with 3 other family members. Notes that over the past few days she has had some upper respiratory symptoms and mild shortness of breath, but then last night it became much worse and she began to have episodes of nausea with vomiting. Denies any history of aspiration or known aspiration events. Because of the symptoms, she came into the ED for further evaluation. On arrival to the ED she was noted to hypoxic to the low to mid 80s on room air and was breathing at 30-35 times per minute. She was tachycardic to the low 100s and had a low-grade fever of 99.4F. She was placed on supplemental oxygen and given a breathing treatment with moderate improvement in her work of breathing. CTA chest showed no PE but did show bilateral multifocal pneumonia with consolidation greatest in the right middle lobe. Labs notable for WBC count of 24, potassium 2.8 and magnesium 1.1. She was given doses of IV antibiotics and steroids for suspected pneumonia with COPD exacerbation, and hospitalist was contacted for admission. She has been in PCU, but apparently had an acute escalation of FiO2 required this AM to [id number], new CT showing brand new GGO in RUL, resolution of density in LLL. Hospitalist has escalated antibiotics for broader GN and GPC coverage. [facility] Medical History Pleural effusion on left Atelectasis of left lung Postoperative urinary retention Situational insomnia Chronic anxiety Preop exam for internal medicine Acute bronchitis, unspecified COVID-19 Contact with and (suspected) exposure to other viral communicable diseases Elevated MCV Elevated hemoglobin Hypokalemia Enlarged thyroid gland Uncontrolled hypertension Breast lump Hearing problem AAA (abdominal aortic aneurysm) Rash Knee pain, chronic Hay fever Hemorrhoids HTN (hypertension) Home Medications ?Medication ?Instructions ?Recorded ?Last Taken ?Type aspirin 81 mg tablet,delayed 81 mg PO QDAY 07/28/24 Unknown History release (Adult Low Dose Aspirin) metoprolol tartrate 50 mg tablet PO BP 10/11/24 Unknown History Allergy/AdvReac Type Severity Reaction Status Date / Time NSAIDS (Non-Steroidal AdvReac Nausea Verified 10/11/24 03:43 Anti-Inflamma Family History Other Anxiety with depression Arthritis Asthma Diabetes Hyperlipemia Hypertension Surgical History History of appendectomy Status post AAA (abdominal aortic aneurysm) repair History of AAA (abdominal aortic aneurysm) repair Cataract fragments in eye following surgery Social History Smoking Status: Current every day smoker tobacco type: cigarettes alcohol intake: current alcohol intake frequency: holidays/special occasions only substance use type: does not use ROS Constitutional Constitutional: Denies body ache(s), chills, fatigue, fever(s), headache(s), malaise, night sweats or weakness Eyes Eyes: Denies blurry vision, change in vision or loss of vision ENT HEENT: Denies dizziness, dysphagia, epistaxis, headache(s), hoarseness, loss taste/smell, nasal congestion, nasal discharge or sore throat Cardiovascular Cardiovascular: Denies chest pain, claudication, dizziness, dyspnea, edema, irregular heart rhythm or lightheadedness Respiratory/Chest Respiratory/Chest: Reports cough and shortness of breath with exertion Gastrointestinal Gastrointestinal: Denies abdominal pain, diarrhea, dyspepsia, dysphagia, heartburn, hematochezia, melena, nausea or vomiting Musculoskeletal Musculoskeletal: Denies arthralgias, back pain or joint pain Integumentary Integumentary: Denies lesions, rash, skin ulcer or wounds Neurologic Neurologic: Denies abnormal gait, abnormal speech, confusion, focal weakness, loss of vision, seizure-like activity or syncope Psychiatric Psychiatric: Denies anxiety, depression, hallucinations, homicidal ideation, panic attacks or suicidal thoughts Endocrine Endocrinology: Denies fatigue, polydipsia or polyuria Hematologic/Lymphatic Hematologic/Lymphatic: Denies easy bleeding or easy bruising Allergic/Immunologic Allergic/Immunologic: Denies systems reviewed and no addt'l complaints, except as documented, as per HPI, none, GI upset w/certain foods, itchy eyes, lip swelling, seasonal rhinorrhea, rhinitis, throat swelling, tongue swelling, hives, urticaria, eczemia, wheezing, asthma or other Objective Data Objective Data Vital Signs: Vital Signs Last response Temperature 36.6 C 10/11/24 10:30 Temperature Source Temporal 10/11/24 10:30 Pulse Rate 85 10/11/24 15:23 Respiratory Rate 20 H 10/11/24 15:23 Respiratory Pattern Normal 10/11/24 15:23 Blood Pressure 122/74 H 10/11/24 10:30 Blood Pressure Mean 90 10/11/24 10:30 Blood Pressure Source Monitor 10/11/24 10:30 Blood Pressure Position Semi-Fowlers 10/11/24 10:30 Blood Pressure Location Right Arm 10/11/24 10:30 Pulse Ox 96 10/11/24 10:30 Oxygen Delivery Method Room Air 10/11/24 10:30 Oxygen Flow Rate (L/min) 10 10/11/24 08:30 I&O: I&O Last 24 Hours 10/10/24 10/11/24 10/11/24 23:59 11:59 23:59 Intake Total 1554 / 1914 360 / 1915 Balance 155 / 1914 360 / 1914 I&O: Total Stay 10/11/24 03:41 thru 10/11/24 12:00 Intake Total 1914 Current Meds Ordered / Administered: Current meds ordered / Administered Generic Name Dose Route Start Last Admin Trade Name Freq PRN Reason Stop Dose Admin Acetaminophen 650 mg 10/11/24 06:28 Acetaminophen 325 Mg Tablet PO Q6H PRN PRN Pain 1-10 Or Fever>100.7 Albuterol/Ipratropium 3 ml 10/11/24 06:28 10/11/24 15:23 Ipratropium/Albuterol Sulfate 3 Ml Ampul.Neb INHALATION 3 ml Q4HWA.RT CEM Administration Aspirin 81 mg 10/11/24 08:00 10/11/24 08:35 Aspirin E.C. 81 Mg Tablet PO 81 mg BREAKFAST CEM Administration Enoxaparin Sodium 40 mg 10/11/24 10:00 10/11/24 08:46 Enoxaparin 40 Mg/0.4 Ml Syringe SC 40 mg DAILY CEM Administration Furosemide 40 mg 10/11/24 13:50 10/11/24 15:25 Furosemide 40 Mg/4 Ml Vial IV 40 mg BIDLX CEM Administration Protocol Azithromycin 500 mg/ Sodium 255 mls @ 255 mls/hr 10/11/24 10:00 10/11/24 10:20 Chloride IV Infused Q24 CEM Infusion Piperacillin Sod/Tazobactam 50 mls @ 12.5 mls/hr 10/11/24 14:00 10/11/24 14:46 Sod 3.375 gm/ Sodium Chloride IV 12.5 mls/hr Q8 CEM Administration Melatonin 3 mg 10/11/24 06:28 Melatonin 3 Mg Tablet PO QHS PRN PRN INSOMNIA Methylprednisolone Sodium Succinate 40 mg 10/11/24 14:00 10/11/24 15:26 Methylprednisolone Sod Succ 40 Mg/Ml Vial IV 40 mg Q8 CEM Administration Metoprolol Tartrate 25 mg 10/11/24 10:00 10/11/24 12:23 Metoprolol Tartrate 25 Mg Tablet PO 25 mg BID CEM Administration Protocol Morphine Sulfate 1 mg 10/11/24 08:16 Morphine 2 Mg/Ml Syringe IV Q3H PRN PRN Pain Score 6-10 Ondansetron HCl 4 mg 10/11/24 06:28 Ondansetron 4 Mg/2 Ml Vial IV Q8H PRN PRN NAUSEA/VOMITING Oxycodone HCl 5 mg 10/11/24 08:13 10/11/24 15:34 Oxycodone 5 Mg Tablet PO 5 mg Q6H PRN PRN Administration Pain Score 6-10 Sodium Chloride 10 - 40 ml 10/11/24 06:38 0.9% Saline Lock 10 Ml Syringe IV UD PRN SALINE FLUSH Physical Exam Const alert, oriented x3 and no apparent distress General Appearance: cooperative, well developed, ill appearing and frail HEENT normocephalic, head/scalp atraumatic and moist oral mucous membranes Eyes PERRL, EOMs intact bilaterally, conjunctivae normal and no scleral icterus Neck full ROM Lymph Lymphatic: no lymphadenopathy noted Chest inspection of chest normal Resp normal respiratory effort and no use of accessory muscles Effort and Inspection: able to speak in complete sentences Auscultation: rhonchi right upper and diminished lung sounds Cardio regular rate GI normal to inspection, nondistended, normoactive bowel sounds, soft to palpation and non-tender no CVA tenderness Extremity no clubbing, cyanosis or edema Skin no rashes or lesions noted Neuro oriented x3 and CN's II-XII intact bilaterally Psych cooperative and affect normal Lab / Micro Data 10/11/24 04:09 10/11/24 04:09 Labs: Laboratory Results - last 24 hr 10/11/24 04:09: WBC 24.1 H, RBC 4.57, Hgb 14.4, Hct 41.8, MCV 91.5, MCH 31.5, MCHC 34.4, RDW Std Deviation 55.5 H, RDW Coeff of Silvia 17.1 H, Plt Count 208, MPV 9.8, Neut % (Auto) Not Reportable, Absolute Neuts (auto) 22.7 H, Absolute Lymphs (auto) 0.70 L, Total Counted 100, Neutrophils % (Manual) 63, Band Neutrophils % 31 H, Lymphocytes % (Manual) 3 L, Monocytes % (Manual) 3, Differential Comment SCANNED, Platelet Estimate ADEQUATE, PT 17.6 H, INR 1.4, APTT 30.1, Sodium 139, Potassium 2.8 L, Chloride 103, Carbon Dioxide 20.2 L, Anion Gap 16 H, BUN 18, Creatinine 0.90, Estim Creat Clear Calc 53.67, Est GFR (MDRD) Non-Af 68, BUN/Creatinine Ratio 19.7, Glucose 139 H, Lactic Acid 2.0, Calcium 8.7, Phosphorus 3.1, Magnesium 1.1 L, NT pro BNP II 5789 H 10/11/24 08:25: Lactic Acid 4.0 H* Micro: Microbiology 10/11/24 13:44 Urine, Clean Catch Legionella Antigen - Final 10/11/24 13:44 Urine, Clean Catch Streptococcus pneumoniae Antigen (M - Final Streptococcus pneumonia Ag 10/11/24 04:20 Mucosa - Nose SARS-CoV-2, Influenza & RSV (PCR) - Final Imaging Radiology Impression Chest CTA 10/11/24 04:06 IMPRESSION: No evidence of filling defect to suggest pulmonary embolism. Findings are consistent with bilateral multifocal areas of pneumonia greatest at the right middle lobe as described above. Clinically correlate and follow-up to resolution. Reading Location: [id number] Echocardiogram 10/11/24 10:15 Interpretation Summary Normal LV size. The left ventricular ejection fraction is 60 %. Stage 1 diastolic dysfunction. Contrast injection was performed. Ordering Physician: Neisha Boston Referring Physician: Lubna Dey Performed By: Codie Pantoja, BRITTANICS, RVT Assessment and Plan . Assessment and plan: I agree that the CT is suggestive of the typical appearance of aspiration, but the patient is actually fairly adamant she has not choked or aspirated. Despite this, it is reasonable, given the archetypical appearance of the GGO on CT to cover for gram negative/enteric organisms with Zosyn For now, it is therefore reasonable to defer bronchoscopic evaluation, despite the atypical appearance, as she seems to have a reasonable mechanism of injury Noninvasive interventions can thus focus on chest physiotherapy, including handheld percussion or chest vest therapy q4h by RT I would recommend the addition of nebulized acetylcysteine q12h coupled with a bronchodilator to enhance her expectoration for a duration of 3-5 days She can also utilize self-directed intervention with acapella and incentive spirometry should these measures fail to progress her status, the addition of NIPPV with BIPAP 12/8cwp may be helpful Check for urine legionella and mycoplasma Ag as well Clinically, she appears nonplussed and at this time there is not clear metric to suggest she will decompensate Preston Patrick MD [facility] [employer] The entirety of this encounter was done via Telemedicine
[2024-10-11 17:32] LABS: Allen Test Positive; Base Excess -7 mmol/L (-2 to +2); Bicarbonate 18.1 mmol/L (22-26); Blood Gas Specimen Type ART; Mode Not entered; O2 Delivery Device Cannula; PO2 81 mmHG (75-100); SITE L Radial; SO2 96 % (95-99); Total Carbon Dioxide 19 mmol/L; pCO2 30.4 mmHg (35-45); pH 7.38 (7.35-7.45)
[2024-10-11] MEDS: Acetylcysteine 800 MG/4 ML VIAL.NEB. INHALATION (19:12)
[2024-10-11] MEDS: 0.9% Saline Lock 10 ML Syringe IV (21:41)
[2024-10-12] VITALS (9 sets, daily range): BP systolic 109–116; BP diastolic 51–67; PULSE 55–67; RESP 18–20; TEMP 35.9–36.6; O2SAT 92–95
[2024-10-12] MEDS: oxyCODONE 5 MG Tablet PO ×3 (04:26→17:11)
[2024-10-12 05:31] LABS: Hematocrit 36.2 % (37-47); Hemoglobin 11.9 g/dL (12.0-15.0); Mean Corp Hgb Conc 32.9 g/dL (32-36); Mean Corpuscular Hgb 31.1 pg (27.0-32.0); Mean Corpuscular Volume 94.5 fL (81-99); Mean Platelet Vol. 10.6 fl (6.2-12.0); Platelet Count 180 K/mm3 (150-450); RBC Distribution Width CV 17.4 % (11.6-14.6); RBC Distribution Width SD 59.8 fl (35.1-43.9); Red Blood Count 3.83 M/mm3 (4.2-5.4); White Blood Count 16.2 K/mm3 (4.4-11.0)
[2024-10-12] MEDS: Piperacil/Tazobactam 3.375 GM in 0.9% Normal Saline (50mL MB+) 50 ML IV (05:57)
[2024-10-12] MEDS: Methylprednisolone Sod Succ 40 MG/ML VIAL IV ×3 (05:58→22:00)
[2024-10-12] MEDS: Acetylcysteine 800 MG/4 ML VIAL.NEB. INHALATION ×2 (06:27→19:40)
[2024-10-12] MEDS: Ipratropium/Albuterol Sulfate 3 ML AMPUL.NEB INHALATION ×2 (06:27→19:40)
[2024-10-12 07:11] LABS: Anion Gap 14 (5-15); BUN 35 mg/dL (4-19); BUN/Creat Ratio 26.6 RATIO (10-20); Calcium,Total 8.5 mg/dL (7.6-11.0); Carbon Dioxide 17.8 mmol/L (21.0-32.0); Chloride 105 mmol/L (98-108); Creatinine, Serum 1.31 mg/dL (0.70-1.20); EST Glomerular Filtration Rate 44 (>60); Estimated Creatinine Clearance 36.87 ml/min (50-250); Glucose 188 mg/dL (70-99); Potassium 3.8 mmol/L (3.3-5.1); Sodium Level 137 mmol/L (133-145)
[2024-10-12] MEDS: Enoxaparin 40 MG/0.4 ML Syringe SC (09:22)
[2024-10-12] MEDS: Aspirin E.C. 81 MG Tablet PO (09:22)
[2024-10-12] MEDS: Metoprolol Tartrate 25 MG Tablet PO (09:22)
[2024-10-12] MEDS: Furosemide 40 MG/4 ML Vial IV ×2 (09:23→17:14)
[2024-10-12] MEDS: Azithromycin 500 MG in 0.9% Normal Saline (250mL Bag) 250 ML 255 MG IV (09:23)
--- NOTE | 2024-10-12 10:23 | PCM.PN.TICU ---
Objective Data Objective Data Vital Signs: Vital Signs Last response Temperature 36.4 C L 10/12/24 09:14 Temperature Source Temporal 10/12/24 09:14 Pulse Rate 67 10/12/24 09:22 Pulse Strength Normal (2+) 10/12/24 09:09 Respiratory Rate 18 10/12/24 09:14 Respiratory Effort Normal, Non-Labored 10/12/24 09:12 Respiratory Depth Normal 10/12/24 09:12 Respiratory Pattern Normal 10/12/24 09:12 Blood Pressure 113/51 L 10/12/24 09:14 Blood Pressure Mean 71 10/12/24 09:14 Blood Pressure Source Monitor 10/11/24 17:27 Blood Pressure Position Semi-Fowlers 10/11/24 17:27 Blood Pressure Location Right Arm 10/11/24 17:27 Pulse Ox 92 10/12/24 09:14 Oxygen Delivery Method High Flow 10/12/24 09:14 Oxygen Flow Rate (L/min) 3 10/12/24 09:14 I&O: I&O Last 24 Hours 10/11/24 10/11/24 10/12/24 11:59 23:59 11:59 Intake Total 1555 / 3305 1750 / 3305 50 / 50 Balance 1555 / 3305 1750 / 3305 50 / 50 I&O: Total Stay 10/11/24 03:41 thru 10/12/24 05:54 Intake Total 3355 Balance 3355 Current Meds Ordered / Administered: Current meds ordered / Administered Generic Name Dose Route Start Last Admin Trade Name Freq PRN Reason Stop Dose Admin Acetaminophen 650 mg 10/11/24 06:28 Acetaminophen 325 Mg Tablet PO Q6H PRN PRN Pain 1-10 Or Fever>100.7 Acetylcysteine 800 mg 10/11/24 16:45 10/12/24 06:27 Acetylcysteine 800 Mg/4 Ml Vial.Neb. INHALATION 10/14/24 23:59 800 mg BID.RT CEM Administration Albuterol/Ipratropium 3 ml 10/11/24 16:45 10/12/24 06:27 Ipratropium/Albuterol Sulfate 3 Ml Ampul.Neb INHALATION 10/15/24 16:46 3 ml BID.RT CEM Administration Aspirin 81 mg 10/11/24 08:00 10/12/24 09:22 Aspirin E.C. 81 Mg Tablet PO 81 mg BREAKFAST CEM Administration Enoxaparin Sodium 40 mg 10/11/24 10:00 10/12/24 09:22 Enoxaparin 40 Mg/0.4 Ml Syringe SC 40 mg DAILY CEM Administration Furosemide 40 mg 10/11/24 13:50 10/12/24 09:23 Furosemide 40 Mg/4 Ml Vial IV 40 mg BIDLX CEM Administration Protocol Azithromycin 500 mg/ Sodium 255 mls @ 255 mls/hr 10/11/24 10:00 10/12/24 09:23 Chloride IV 255 mls/hr Q24 CEM Administration Piperacillin Sod/Tazobactam 50 mls @ 12.5 mls/hr 10/11/24 14:00 10/12/24 05:57 Sod 3.375 gm/ Sodium Chloride IV 12.5 mls/hr Q8 CEM Administration Melatonin 3 mg 10/11/24 06:28 Melatonin 3 Mg Tablet PO QHS PRN PRN INSOMNIA Methylprednisolone Sodium Succinate 40 mg 10/11/24 14:00 10/12/24 05:58 Methylprednisolone Sod Succ 40 Mg/Ml Vial IV 40 mg Q8 CEM Administration Metoprolol Tartrate 25 mg 10/11/24 10:00 10/12/24 09:22 Metoprolol Tartrate 25 Mg Tablet PO 25 mg BID CEM Administration Protocol Morphine Sulfate 1 mg 10/11/24 08:16 Morphine 2 Mg/Ml Syringe IV Q3H PRN PRN Pain Score 6-10 Ondansetron HCl 4 mg 10/11/24 06:28 Ondansetron 4 Mg/2 Ml Vial IV Q8H PRN PRN NAUSEA/VOMITING Oxycodone HCl 5 mg 10/11/24 08:13 10/12/24 04:26 Oxycodone 5 Mg Tablet PO 5 mg Q6H PRN PRN Administration Pain Score 6-10 Sodium Chloride 10 - 40 ml 10/11/24 06:38 10/11/24 21:41 0.9% Saline Lock 10 Ml Syringe IV 10 ml UD PRN Administration SALINE FLUSH Lab / Micro Data Attestation: I reviewed the patient's lab results. (Urine (+) strep Ag) 10/12/24 04:34 10/12/24 04:34 Labs: Laboratory Results - last 24 hr 10/11/24 04:09: NT pro BNP II 5789 H 10/11/24 08:25: Lactic Acid 4.0 H* 10/12/24 04:34: WBC 16.2 H, RBC 3.83 L, Hgb 11.9 L, Hct 36.2 L, MCV 94.5, MCH 31.1, MCHC 32.9, RDW Std Deviation 59.8 H, RDW Coeff of Silvia 17.4 H, Plt Count 180, MPV 10.6, Sodium 137, Potassium 3.8, Chloride 105, Carbon Dioxide 17.8 L, Anion Gap 14, BUN 35 H, Creatinine 1.31 H, Estim Creat Clear Calc 36.87 L, Est GFR (MDRD) Non-Af 44 L, BUN/Creatinine Ratio 26.6 H, Glucose 188 H, Calcium 8.5 Micro: Microbiology 10/11/24 13:44 Urine, Clean Catch Legionella Antigen - Final 10/11/24 13:44 Urine, Clean Catch Streptococcus pneumoniae Antigen (M - Final Streptococcus pneumonia Ag ABG Data ABG results: ABG 10/11/24 17:29 Specimen Type ART Sample Site L Radial pH 7.38 Bicarbonate Actual 18.1 L Total CO2 19 Base Excess -7 L O2 Saturation 96 O2 % 10.0 ABG pCO2 30.4 L ABG pO2 81 Gato Test Positive O2 Delivery Device Cannula Vent Mode Not entered Imaging Radiology Impression Echocardiogram 10/11/24 10:15 Interpretation Summary Normal LV size. The left ventricular ejection fraction is 60 %. Stage 1 diastolic dysfunction. Contrast injection was performed. Ordering Physician: Neisha Boston Referring Physician: Lubna Dey Performed By: Codie Pantoja, RENAE, RVT Assessment and Plan . Assessment and plan: Given the atypical appearance on CT, Strep Pneumo is unexpected, but very specific when found. Can reduce coverage to ceftriaxone and convert to PO treatment tomorrow if off O2 Continue chest expansion and physiotherapy q4h WA complete acetylcysteine neb 3d INH therapy q12h with RT Preston Patrick MD [facility] The entirety of this encounter was done via Telemedicine Physical Exam Const alert, oriented x3 and no apparent distress General Appearance: cooperative, well developed, ill appearing and frail HEENT normocephalic, head/scalp atraumatic and moist oral mucous membranes Eyes PERRL, EOMs intact bilaterally, conjunctivae normal and no scleral icterus Neck full ROM Lymph Lymphatic: no lymphadenopathy noted Chest inspection of chest normal Resp normal respiratory effort and no use of accessory muscles Effort and Inspection: able to speak in complete sentences Auscultation: rhonchi right upper and diminished lung sounds Cardio regular rate GI normal to inspection, nondistended, normoactive bowel sounds, soft to palpation and non-tender no CVA tenderness Extremity no clubbing, cyanosis or edema Skin no rashes or lesions noted Neuro oriented x3 and CN's II-XII intact bilaterally Psych cooperative and affect normal Subjective Subjective HPI Narrative: 73yo who presented to [facility] ED on with worsening shortness of breath and nausea with vomiting. Patient has history of mild COPD, is not on home oxygen. No prior history of COPD exacerbations requiring hospitalization. She was hospitalized last month with acute appendicitis s/p laparoscopic appendectomy. Notes that she did well below surgery and was discharged home without issue. She lives at home with 3 other family members. Notes that over the past few days she has had some upper respiratory symptoms and mild shortness of breath, but then last night it became much worse and she began to have episodes of nausea with vomiting. Denies any history of aspiration or known aspiration events. Because of the symptoms, she came into the ED for further evaluation. On arrival to the ED she was noted to hypoxic to the low to mid 80s on room air and was breathing at 30-35 times per minute. She was tachycardic to the low 100s and had a low-grade fever of 99.4F. She was placed on supplemental oxygen and given a breathing treatment with moderate improvement in her work of breathing. CTA chest showed no PE but did show bilateral multifocal pneumonia with consolidation greatest in the right middle lobe. Labs notable for WBC count of 24, potassium 2.8 and magnesium 1.1. She was given doses of IV antibiotics and steroids for suspected pneumonia with COPD exacerbation, and hospitalist was contacted for admission. She has been in PCU, but apparently had an acute escalation of FiO2 required this AM to [id number], new CT showing brand new GGO in RUL, resolution of density in LLL. Hospitalist has escalated antibiotics for broader GN and GPC coverage. 10/11 - [id number] 10/12 - 3LNCO2, feels much better, still dry cough; NAEON 10 or more systems reviewed and are negative except as per HPI
--- NOTE | 2024-10-12 10:59 | PN_ITS ---
Subjective Subjective Patient seen and examined. She had no active complaints and felt much better today. She is on 3L of oxygen by nasal canula. Review of systems is otherwise negative. Wbc is 16.2. Platelets are 180 today.Cr today is up to 1.31. Objective Data Objective Data Vital Signs: Vital Signs Temp Pulse Resp BP Pulse Ox O2 Del Method O2 Flow Rate 97.5 F L 67 18 113/51 L 92 High Flow 3 10/12/24 09:14 10/12/24 09:22 10/12/24 09:14 10/12/24 09:14 10/12/24 09:14 10/12/24 09:14 10/12/24 09:14 Oxygen Flow Rate (L/min) 3 Oxygen Delivery Method High Flow Weight: 145 lb 8.081 oz Body Mass Index (BMI) 23.5 Intake & Output: Intake and Output for Last 24 Hours 10/10/24 10/11/24 10/12/24 23:59 23:59 23:59 Intake Total 3305 / 3305 355 / 355 Balance 3305 / 3305 355 / 355 Lab / Micro Data 10/12/24 04:34 10/12/24 04:34 Labs: Laboratory Results - last 24 hr 10/11/24 08:25: Lactic Acid 4.0 H* 10/12/24 04:34: WBC 16.2 H, RBC 3.83 L, Hgb 11.9 L, Hct 36.2 L, MCV 94.5, MCH 31.1, MCHC 32.9, RDW Std Deviation 59.8 H, RDW Coeff of Silvia 17.4 H, Plt Count 180, MPV 10.6, Sodium 137, Potassium 3.8, Chloride 105, Carbon Dioxide 17.8 L, Anion Gap 14, BUN 35 H, Creatinine 1.31 H, Estim Creat Clear Calc 36.87 L, Est GFR (MDRD) Non-Af 44 L, BUN/Creatinine Ratio 26.6 H, Glucose 188 H, Calcium 8.5 Micro: Microbiology 10/11/24 13:44 Urine, Clean Catch Legionella Antigen - Final 10/11/24 13:44 Urine, Clean Catch Streptococcus pneumoniae Antigen (M - Final Streptococcus pneumonia Ag 10/11/24 04:20 Mucosa - Nose SARS-CoV-2, Influenza & RSV (PCR) - Final ABG Data ABG results: ABG 10/11/24 17:29 Specimen Type ART Sample Site L Radial pH 7.38 Bicarbonate Actual 18.1 L Total CO2 19 Base Excess -7 L O2 Saturation 96 O2 % 10.0 ABG pCO2 30.4 L ABG pO2 81 Gato Test Positive O2 Delivery Device Cannula Vent Mode Not entered Radiography Diagnostic Testing: Radiology Impression Echocardiogram 10/11/24 10:15 Interpretation Summary Normal LV size. The left ventricular ejection fraction is 60 %. Stage 1 diastolic dysfunction. Contrast injection was performed. Ordering Physician: Neisha Boston Referring Physician: Lubna Dey Performed By: Codie Pantoja, RENAE, RVT Physical Exam Const alert, oriented x3, no apparent distress and average body habitus General Appearance: cooperative and comfortable HEENT normocephalic, head/scalp atraumatic, hearing grossly normal bilaterally, nasal mucous membranes and turbinates normal, moist oral mucous membranes, oropharynx normal and gingiva normal Eyes PERRL, EOMs intact bilaterally and conjunctivae normal Neck full ROM, no lymphadenopathy and supple General: trachea midline Lymph Lymphatic: no lymphadenopathy noted Chest inspection of chest normal Resp Resp Narrative: moderately diminished breath sounds in mid and lower lung nunez, no wheezes or crackles. On 3 L of oxygen by nasal canula. Cardio regular rate, regular rhythm, S1 normal heart sound, S2 normal heart sound, no murmurs and peripheral pulses 2+ throughout GI normal to inspection, nondistended, normoactive bowel sounds, soft to palpation, non-tender and non-distended Back/Spine normal ROM Extremity normal to inspection, full ROM, normal capillary refill, no clubbing, cyanosis or edema and no calf tenderness General Extremity: no tenderness to palpation of joints or extremities Skin no rashes or lesions noted General Skin Exam: no breakdown Neuro CN's II-XII intact bilaterally, no focal motor deficits and no sensory deficits noted Motor Exam: strength 5/5 throughout and general weakness Psych mental status grossly normal, thought process normal and cooperative Appearance: appropriate Assessment & Plan Assessment/Plan (1) Hypoxia: (2) Multifocal pneumonia: (3) Acute respiratory failure with hypoxia: PLAN: Plan #Acute hypoxic respiratory failure due to probable aspiration pneumonia * down to 3L, from 10L on admission. * wbc is down to 16.2. * on IV zosyn * urine for strep antigen is positive. * CT chest showed evidence of multifocal pneumonia. * pulmonology on board. * Breathing treatments and bronchodilators. Titrate oxygen to maintain saturation above 90%. * #Sepsis due to aspiration pneumonia: Management as above. #Hypokalemia: resolved. K is 3.8 today. #acute heart failure with pEF * EF is unknown. proBNP is 5789 and 2D echo showed EF of 60% with stage I diastolic dysfunction and no regional wall motion abnormalities noted. He has stage I diastolic dysfunction. * Will diurese with IV Lasix 40 mg twice daily as fluid overload is likely also contributing to the hypoxia. * Hypertension: on metoprolol DVT prophylaxis: lovenox COde status: full code Charges/Coding Visit Charges Inpatient E&M: 97821 Subs Hosp L2
[2024-10-12] MEDS: Acetaminophen 325 MG Tablet 650 MG PO ×2 (11:08→17:11)
[2024-10-12] MEDS: Ceftriaxone 1 GM/50 ML BAG IV (11:51)
[2024-10-12] MEDS: Calcium Carbonate 500 MG Tablet PO (17:43)
[2024-10-12] MEDS: 0.9% Saline Lock 10 ML Syringe IV (22:00)
[2024-10-13] VITALS (12 sets, daily range): BP systolic 131–168; BP diastolic 68–88; PULSE 45–78; RESP 14–20; TEMP 36.3–36.9; O2SAT 87–97
[2024-10-13] MEDS: oxyCODONE 5 MG Tablet PO ×4 (00:35→20:29)
[2024-10-13] MEDS: Methylprednisolone Sod Succ 40 MG/ML VIAL IV ×3 (05:10→21:44)
[2024-10-13] MEDS: 0.9% Saline Lock 10 ML Syringe IV ×2 (05:10→21:44)
[2024-10-13] MEDS: Calcium Carbonate 500 MG Tablet PO (05:15)
[2024-10-13] MEDS: Ondansetron 4 MG/2 ML Vial IV (05:15)
[2024-10-13 05:54] LABS: Absolute Lymphocyte Count 0.62 X10^3/uL (0.83-4.51); Absolute Neutrophil Count 8.9 X10^3/uL (2.0-7.7); Basophil# 0.01 X10^3/uL; Basophil% 0.1 % (0-1); Hematocrit 35.7 % (37-47); Hemoglobin 11.6 g/dL (12.0-15.0); Lymphocyte # 0.62 X10^3/ul (0.83-4.51); Lymphocyte % 6.2 % (19-41); Mean Corp Hgb Conc 32.5 g/dL (32-36); Mean Corpuscular Hgb 30.9 pg (27.0-32.0); Mean Corpuscular Volume 95.2 fL (81-99); Mean Platelet Vol. 10.9 fl (6.2-12.0); Monocyte# 0.29 X10^3/uL; Monocyte% 2.9 % (0-10); NRBC Flagged by Analyzer 0 % (0-5); Neutrophil # 8.92 X10^3/uL (2.7-7.7); Neutrophil % 89.7 % (47-70); Platelet Count 196 K/mm3 (150-450); RBC Distribution Width CV 17.1 % (11.6-14.6); RBC Distribution Width SD 60.1 fl (35.1-43.9); Red Blood Count 3.75 M/mm3 (4.2-5.4)
[2024-10-13 06:19] LABS: Anion Gap 13 (5-15); BUN 40 mg/dL (4-19); BUN/Creat Ratio 29.4 RATIO (10-20); Calcium,Total 8.8 mg/dL (7.6-11.0); Carbon Dioxide 20.9 mmol/L (21.0-32.0); Chloride 105 mmol/L (98-108); Creatinine, Serum 1.36 mg/dL (0.70-1.20); EST Glomerular Filtration Rate 42 (>60); Estimated Creatinine Clearance 35.52 ml/min (50-250); Glucose 114 mg/dL (70-99); Sodium Level 139 mmol/L (133-145)
[2024-10-13] MEDS: Ipratropium/Albuterol Sulfate 3 ML AMPUL.NEB INHALATION ×2 (06:30→20:08)
[2024-10-13] MEDS: Acetylcysteine 800 MG/4 ML VIAL.NEB. INHALATION ×2 (06:30→20:08)
[2024-10-13] MEDS: Aspirin E.C. 81 MG Tablet PO (08:30)
[2024-10-13] MEDS: Enoxaparin 40 MG/0.4 ML Syringe SC (08:30)
[2024-10-13] MEDS: Ceftriaxone 1 GM/50 ML BAG IV (08:30)
[2024-10-13] MEDS: Furosemide 40 MG/4 ML Vial IV (08:30)
[2024-10-13] MEDS: Azithromycin 500 MG in 0.9% Normal Saline (250mL Bag) 250 ML 255 MG IV (09:40)
--- NOTE | 2024-10-13 11:27 | CT_ITS ---
PROCEDURE: ABDOMEN/PEL W ORAL CONT ONLY 10/13/2024 REASON FOR EXAM: RT SIDE ABD PAIN TECHNIQUE: Abdomen and pelvis CT without intravenous contrast. Noncontrast technique limits evaluation of the abdominal and pelvic viscera. Coronal and Sagittal reconstruction series were provided. One or more dose reduction techniques were used (e.g., Automated exposure control, adjustment of the mA and/or kV according to patient size, use of iterative reconstruction technique). PATIENT PREPARATION: Per protocol ORAL CONTRAST: Administered COMPARISON: CTA chest 10/11/2024, CT abdomen pelvis 09/06/2024. FINDINGS: Lung bases: Near-complete consolidation/ground-glass opacification of the visualized right middle lobe, improved since prior examination. Small bilateral pleural effusions/pleural thickening with adjacent atelectasis. The heart is normal in size with coronary artery calcifications. Liver: The unopacified liver is normal in size. No biliary ductal dilation. Gallbladder: No radiopaque stones within the gallbladder. Spleen: Normal size. Pancreas: The unopacified liver is grossly unremarkable. Adrenals: No adrenal mass. Kidneys: Mild asymmetric atrophy of the right kidney. Bilateral renal cysts and additional hypodensities. No hydronephrosis or nephrolithiasis. Bladder: Distended and unremarkable. Reproductive Organs: Prior hysterectomy. Bowel: Oral contrast material opacifies the stomach and small bowel loops. The bowel loops are nondilated. Status post appendectomy with ill-defined soft tissue mass within the right lower quadrant measuring 4.3 x 1.7 cm (sagittal image 47), with adjacent soft tissue stranding. No ascites or pneumoperitoneum. Lymph nodes: Visualization is limited without the use of IV contrast. No obvious lymphadenopathy. Vasculature: Multifocal ectasia of the visualized abdominal aorta, extending into the bilateral common iliac arteries, incompletely characterized on noncontrast examination. Bones/soft tissues: Partially visualized breast implants. Body wall edema along the bilateral lower abdomen, [id number]. Laxity of the left lateral ventral abdominal wall with scarring. Subcutaneous gas along the ventral lower abdominal wall, likely prior injection sites. Thoracolumbar spondylosis. Chronic L1 compression fracture deformity. CT/Abdomen/Pel W ORAL Cont Only IMPRESSION: 1. Status post appendectomy with ill-defined soft tissue mass within the right lower quadrant, incompletely evaluated without the use of IV contrast. Findings may represent intra-abdominal abscess, phlegmon o r inflamed appendiceal stump. 2. Interval improvement in the near-complete consolidation/ground-glass opacifi cation of the right lower lobe. 3. Development of small bilateral pleural effusions/pleural thickening not pres ent on comparison examination. 4. Multifocal ectasia of the aortoiliac vessels, incompletely evaluated on nonc ontrast examination. Reading Location: [id number]
[2024-10-13] MEDS: HYDROmorphone 0.5 MG/0.5 ML SYRINGE IV ×2 (12:09→17:03)
[2024-10-13] MEDS: Acetaminophen 325 MG Tablet 650 MG PO (14:04)
--- NOTE | 2024-10-13 16:23 | CON.PCM.SX_ITS ---
Assessment & Plan Assessment/Plan (1) Right lower quadrant pain: PLAN: Plan The patient is a 73-year-old female who was admitted with pneumonia/COPD exacerbation. She was doing well from a pulmonary standpoint however began having right lower quadrant pain that started today. I did perform an appendectomy on her about a month ago. She denies any issues or problems following that surgery. CT scan without IV contrast showed an ill-defined soft tissue mass in the right lower quadrant. I tend to suspect this is most likely postoperative changes potentially related to hematoma or even the Jag used for hemostasis. I feel that it is very doubtful that any type of stump appendicitis or retained appendicitis be present. I discussed this with the admitting hospitalist and we have agreed to widen her antibiotics in case this is an abscess. We will also plan to repeat CT scan tomorrow with IV contrast. We cannot do so today because of her kidney function. In the meantime we will continue supportive measures with IV fluids and antibiotics and pain medication. HPI Consult Data Date of Consult: 10/13/24 HPI Narrative Reason for Consultation: Right lower quadrant pain HPI Narrative: CHARLIE ESTRADA, is a 73 F who presented to the emergency room a couple of days ago with worsening shortness of breath as well as some nausea and vomiting. She does have a history of COPD she was subsequently admitted for presumed COPD exacerbation as well as a community-acquired pneumonia. She has been doing reasonably well and was getting close to discharge however yesterday she began having right lower quadrant pain that started fairly abruptly and this has been persistent since yesterday afternoon. Patient was admitted to the hospitalist service and they ordered a CT scan of the abdomen today. This was performed with just oral contrast. IV contrast was not utilized as she was also having some renal insufficiency with elevated creatinine as well. CT scan was resulted and showed a 4 x 1 cm soft tissue mass in the right lower quadrant. Differential diagnosis on the CT report was abscess versus stump appendicitis etc. I performed her appendectomy about a month ago. This was a retrocecal appendix. There was a bit of overall surface after the appendix was removed. This was treated with Jag which would have been placed around the location of the finding noted on CT scan. I was asked by hospital medicine to evaluate the patient for this right lower quadrant pain. Patient states that this pain again began fairly abruptly yesterday she states it was like a twinge of pain when it began and has been persistent. To the point where she has difficulty straightening her leg due to pain. She denies any obvious lump or bulge in the groin. No obvious hernias were seen on CT scan. White count today was normal. Rest of her labs were unremarkable. No fevers or chills. [facility] Medical History (Updated 10/13/24 @ 16:[address] Yang Smiley MD) Right lower quadrant pain Pleural effusion on left Atelectasis of left lung Postoperative urinary retention Situational insomnia Chronic anxiety Preop exam for internal medicine Acute bronchitis, unspecified COVID-19 Contact with and (suspected) exposure to other viral communicable diseases Elevated MCV Elevated hemoglobin Hypokalemia Enlarged thyroid gland Uncontrolled hypertension Breast lump Hearing problem AAA (abdominal aortic aneurysm) Rash Knee pain, chronic Hay fever Hemorrhoids HTN (hypertension) Home Medications ?Medication ?Instructions ?Recorded ?Last Taken ?Type aspirin 81 mg tablet,delayed 81 mg PO QDAY 07/28/24 Un known History release (Adult Low Dose Aspirin) metoprolol tartrate 50 mg tablet PO BP 10/11/24 Unknow n History Allergy/AdvReac Type Severity Reaction Status Date / Time NSAIDS (Non-Steroidal AdvReac Nausea Verified 10/11/24 03:43 Anti-Inflamma Family History Other Anxiety with depression Arthritis Asthma Diabetes Hyperlipemia Hypertension Surgical History History of appendectomy Status post AAA (abdominal aortic aneurysm) repair History of AAA (abdominal aortic aneurysm) repair Cataract fragments in eye following surgery Social History Smoking Status: Current every day smoker tobacco type: cigarettes alcohol intake: current alcohol intake frequency: holidays/special occasions only substance use type: does not use Physical Exam Const alert and oriented x3 Constitutional Narrative: Patient somewhat uncomfortable secondary to pain in the right groin General Appearance: cooperative HEENT normocephalic Eyes PERRL Neck supple Resp normal respiratory effort GI GI Narrative: Abdomen is soft and nondistended. She has tenderness in the right lower quadrant. No rebound or guarding. No obvious palpable mass. No obvious palpable inguinal or femoral hernia. No overlying skin changes. Lab / Micro Data 10/13/24 05:05 10/13/24 05:05 Labs: Laboratory Results - last 24 hr 10/13/24 05:05: WBC 10.0, RBC 3.75 L, Hgb 11.6 L, Hct 35.7 L, MCV 95.2, MCH 30.9, MCHC 32.5, RDW Std Deviation 60.1 H, RDW Coeff of Silvia 17.1 H, Plt Count 196, MPV 10.9, Immature Gran % (Auto) 1.100 H, Neut % (Auto) 89.7 H, Lymph % (Auto) 6.2 L, [place] % (Auto) 2.9, Eos % (Auto) 0.0, Baso % (Auto) 0.1, Absolute Neuts (auto) 8.9 H, Absolute Lymphs (auto) 0.62 L, Nucleated RBC % 0, Sodium 139, Potassium 4.0, Chloride 105, Carbon Dioxide 20.9 L, Anion Gap 13, BUN 40 H, Creatinine 1.36 H, Estim Creat Clear Calc 35.52 L, Est GFR (MDRD) Non-Af 42 L, B UN/Creatinine Ratio 29.4 H, Glucose 114 H, Calcium 8.8 Micro: Microbiology 10/11/24 04:09 Blood Culture (Wb) - Anticubital Left Blood Culture - Preliminary No growth in 48 hours. Imaging Radiology Impression Abdomen CT 10/13/24 11:27 IMPRESSION: 1. Status post appendectomy with ill-defined soft tissue mass within the right lower quadrant, incompletely evaluated without the use of IV contrast. Findings may represent intra-abdominal abscess, phlegmon or inflamed appendiceal stump. 2. Interval improvement in the near-complete consolidation/ground-glass opacification of the right lower lobe. 3. Development of small bilateral pleural effusions/pleural thickening not present on comparison examination. 4. Multifocal ectasia of the aortoiliac vessels, incompletely evaluated on noncontrast examination. Reading Location: [id number] Charges/Coding Visit Charges Inpatient E&M: 63613 Init Hosp L3
[2024-10-13] MEDS: Lactated Ringers 1,000 ML 125 ML IV (16:47)
[2024-10-13] MEDS: Piperacil/Tazobactam 3.375 GM in 0.9% Normal Saline (50mL MB+) 50 ML IV (16:53)
--- NOTE | 2024-10-13 19:41 | PCM.PN.HOSP ---
Reason for Visit Reason for Visit: Shortness of breath Subjective Subjective Patient states overall her breathing is much better. She does not wear oxygen at home and still requires 2 L with ambulation. Has been on antibiotics for strep pneumo pneumonia. Patient today is complaining of some right lower quadrant pain. Had an appendectomy here with Dr. Acosta and was discharged on 09/07/2024. States it is quite intense and started last evening. Objective Data Objective Data Vital Signs: Vital Signs Temp Pulse Resp BP Pulse Ox O2 Del Method O2 Flow Rate 97.3 F L 46 L 16 168/88 H 97 Nasal Cannula 2 10/13/24 14:03 10/13/24 19:00 10/13/24 14:03 10/13/24 14:03 10/13/24 14:03 10/13/24 16:57 10/13/24 16:57 FiO2 21 10/12/24 19:44 Oxygen Flow Rate (L/min) 2 Oxygen Delivery Method Nasal Cannula Weight: 66 kg Body Mass Index (BMI) 23.5 Intake & Output: Intake and Output for Last 24 Hours 10/11/24 10/12/24 10/13/24 23:59 23:59 23:59 Intake Total 3305 / 3305 1205 / 1205 605 / 605 Output Total 100 / 100 1750 / 1750 Balance 3305 / 3305 1105 / 1105 -1145 / -1145 Lab / Micro Data 10/13/24 05:05 10/13/24 05:05 Labs: Laboratory Results - last 24 hr 10/13/24 05:05: WBC 10.0, RBC 3.75 L, Hgb 11.6 L, Hct 35.7 L, MCV 95.2, MCH 30.9, MCHC 32.5, RDW Std Deviation 60.1 H, RDW Coeff of Silvia 17.1 H, Plt Count 196, MPV 10.9, Immature Gran % (Auto) 1.100 H, Neut % (Auto) 89.7 H, Lymph % (Auto) 6.2 L, [place] % (Auto) 2.9, Eos % (Auto) 0.0, Baso % (Auto) 0.1, Absolute Neuts (auto) 8.9 H, Absolute Lymphs (auto) 0.62 L, Nucleated RBC % 0, Sodium 139, Potassium 4.0, Chloride 105, Carbon Dioxide 20.9 L, Anion Gap 13, BUN 40 H, Creatinine 1.36 H, Estim Creat Clear Calc 35.52 L, Est GFR (MDRD) Non-Af 42 L, BUN/Creatinine Ratio 29.4 H, Glucose 114 H, Calcium 8.8 Micro: Microbiology 10/11/24 04:09 Blood Culture (Wb) - Anticubital Left Blood Culture - Preliminary No growth in 48 hours. 10/11/24 13:44 Urine, Clean Catch Legionella Antigen - Final 10/11/24 13:44 Urine, Clean Catch Streptococcus pneumoniae Antigen (M - Final Streptococcus pneumonia Ag 10/11/24 04:20 Mucosa - Nose SARS-CoV-2, Influenza & RSV (PCR) - Final Radiography Diagnostic Testing: Radiology Impression Abdomen CT 10/13/24 11:27 IMPRESSION: 1. Status post appendectomy with ill-defined soft tissue mass within the right lower quadrant, incompletely evaluated without the use of IV contrast. Findings may represent intra-abdominal abscess, phlegmon or inflamed appendiceal stump. 2. Interval improvement in the near-complete consolidation/ground-glass opacification of the right lower lobe. 3. Development of small bilateral pleural effusions/pleural thickening not present on comparison examination. 4. Multifocal ectasia of the aortoiliac vessels, incompletely evaluated on noncontrast examination. Reading Location: [facility] Physical Exam Const alert, oriented x3, average body habitus and well nourished; Negative for no apparent distress Constitutional Narrative: Older, white female, walking to bathroom and sitting up on the edge of the bed with nursing at bedside, appears uncomfortable but nontoxic HEENT head/scalp atraumatic and moist oral mucous membranes HEENT Narrative: No thrush, Mallampati 2-3 Head and Scalp: normocephalic Eyes conjunctivae normal Eyes Narrative: No scleral icterus Neck supple Neck Narrative: Trachea midline Resp normal respiratory effort, no retractions and no use of accessory muscles Resp Narrative: Few scattered end expiratory wheezes diffusely diminished but clear Auscultation: wheezes Cardio regular rate, regular rhythm, S1 normal heart sound, S2 normal heart sound, no murmurs, no rub, no gallops and no clicks GI normal to inspection, nondistended, normoactive bowel sounds and soft to palpation; Negative for non-tender GI Narrative: RLQ Extremity no clubbing, cyanosis or edema Extremity Narrative: 2+ pedal pulses Skin skin turgor normal, no jaundice, no petechiae and no mottling Neuro oriented x3, moves all extremities and no focal motor deficits Speech: speech normal Psych Psych Narrative: tearful, affect is flat Mood & Affect: depressed Assessment & Plan Assessment/Plan (1) Multifocal pneumonia: (2) Streptococcal pneumonia: (3) Right lower quadrant pain: (4) Abnormal computed tomography of abdomen and pelvis: (5) Leukocytosis: (6) Anemia: (7) KRYSTA (acute kidney injury): (8) Lactic acidosis: (9) Bradycardia: (10) Acute respiratory failure with hypoxia: PLAN: Plan Acute hypoxic respiratory failure secondary to streptococcal pneumonia - Clinically improving with antibiotics - Has been on ceftriaxone but will transition to Zosyn due to abnormal finding on CT of the abdomen pelvis -Discontinue azithromycin - Had maximally been on 10 L but now down to 2 - Did check home O2 eval and still needed 2 L at rest and with ambulation due to desaturation less than 89% - Repeat home O2 eval at the time of discharge - CT of the chest shows multifocal pneumonia - Continue pulmonary toilet -Continue inhaled acetylcysteine - Incentive spirometer - Continue Acapella - Continue steroids 40 every 8 with plans on tapering to 40 daily tomorrow - Pulmonary medicine was consulted and everything at this time Sepsis secondary to streptococcal pneumonia -Sepsis is resolved -continue antibiotics as ordered - Day 3 of 7 Elevated BNP -it was felt that there was a component of acute heart failure contributing to her respiratory distress - Echocardiogram shows an EF of 60% with stage I diastolic dysfunction and no wall motion abnormalities - Stop Lasix as creatinine is trended up and patient is beginning to appear dry Bradycardia -This appears to be new - Patient was started on a beta-lilia at the end of August per external fill history - Will decrease beta-lilia to 12.5 p.o. twice daily from 25 p.o. twice daily and monitor heart rate - If remains bradycardic may need to discontinue and change regimen Abdominal pain - CT of the abdomen pelvis obtained and shows a possible fluid collection right lower quadrant - recent appendectomy - Unable to get contrasted scan due to worsening renal function - Will give 1 L IV fluids and if renal function better tomorrow will get contrasted scan - General Surgery consultation placed and case was discussed with Dr. Acosta KRYSTA - Baseline serum creatinine appears to run between 0.8 and 0.9 - Now up to 1.36 with diuresis -discontinue IV Lasix -will give 1 L IV fluids - Repeat lab in a.m. Hypertension - Continue metoprolol but decreased dose due to bradycardia History of AAA - Ongoing outpatient follow-up -no active symptoms at this time DVT prophylaxis - Continue subcu enoxaparin CODE STATUS Full code Charges/Coding Visit Charges Inpatient E&M: 66462 Subs Hosp L3
[2024-10-14 02:00] VITALS: BP 163/91; PULSE 59; RESP 14; TEMP 36.8; O2SAT 93
[2024-10-14] MEDS: Methylprednisolone Sod Succ 40 MG/ML VIAL IV (05:22)
[2024-10-14] MEDS: Piperacil/Tazobactam 3.375 GM in 0.9% Normal Saline (50mL MB+) 50 ML IV (05:24)
[2024-10-14] MEDS: oxyCODONE 5 MG Tablet PO (05:30)
[2024-10-14 06:13] LABS: Absolute Neutrophil Count 8.5 X10^3/uL (2.0-7.7); Basophil# 0.01 X10^3/uL; Basophil% 0.1 % (0-1); Hematocrit 37.3 % (37-47); Hemoglobin 12.2 g/dL (12.0-15.0); Lymphocyte % 7.3 % (19-41); Mean Corp Hgb Conc 32.7 g/dL (32-36); Mean Corpuscular Hgb 31.2 pg (27.0-32.0); Mean Corpuscular Volume 95.4 fL (81-99); Mean Platelet Vol. 10.8 fl (6.2-12.0); Monocyte# 0.28 X10^3/uL; Monocyte% 2.9 % (0-10); NRBC Flagged by Analyzer 0 % (0-5); Neutrophil # 8.52 X10^3/uL (2.7-7.7); Neutrophil % 89.3 % (47-70); Platelet Count 183 K/mm3 (150-450); RBC Distribution Width CV 16.8 % (11.6-14.6); RBC Distribution Width SD 58.9 fl (35.1-43.9); Red Blood Count 3.91 M/mm3 (4.2-5.4); White Blood Count 9.6 K/mm3 (4.4-11.0)
[2024-10-14 06:47] LABS: ALB/GLOB Ratio 1.2 RATIO (0.9-2.4); AST(SGOT) 12 U/L (<=31); Alanine Aminotransfer ALT/SGPT 6 U/L (<=34); Albumin, Serum 3.2 g/dL (3.4-4.8); Alkaline Phosphatase 66 U/L (35-104); Anion Gap 12 (5-15); BUN 31 mg/dL (4-19); BUN/Creat Ratio 31.3 RATIO (10-20); Calcium,Total 8.8 mg/dL (7.6-11.0); Carbon Dioxide 24.1 mmol/L (21.0-32.0); Chloride 103 mmol/L (98-108); Creatinine, Serum 0.98 mg/dL (0.70-1.20); EST Glomerular Filtration Rate 62 (>60); Estimated Creatinine Clearance 49.29 ml/min (50-250); Globulin 2.6 g/dL (2.2-4.2); Glucose 111 mg/dL (70-99); Phosphorus 3.3 mg/dL (2.7-4.5); Potassium 3.7 mmol/L (3.3-5.1); Protein, Total 5.8 g/dL (5.9-8.4); Sodium Level 139 mmol/L (133-145); Total Bilirubin 0.25 mg/dL (0.00-1.30)
[2024-10-14 07:10] VITALS: PULSE 80; RESP 13; O2SAT 95
[2024-10-14] MEDS: Acetylcysteine 800 MG/4 ML VIAL.NEB. INHALATION (07:10)
[2024-10-14] MEDS: Ipratropium/Albuterol Sulfate 3 ML AMPUL.NEB INHALATION (07:11)
--- NOTE | 2024-10-14 07:12 | PCM.PN.HOSP ---
Reason for Visit Reason for Visit: Diagnoses Anemia, unspecified (10/11/24) Elevated white blood cell count, unspecified (10/11/24) Acidosis, unspecified (10/11/24) Pneumonia due to other streptococci (10/11/24) Pneumonia, unspecified organism (10/11/24) Chronic obstructive pulmonary disease with (acute) exacerbation (10/11/24) Acute respiratory failure with hypoxia (10/11/24) Acute kidney failure, unspecified (10/11/24) Bradycardia, unspecified (10/11/24) Hypoxemia (10/11/24) Right lower quadrant pain (10/11/24) Abnormal findings on diagnostic imaging of other abdominal regions, including retroperitoneum (10/11/24) Objective Data Objective Data Vital Signs: Vital Signs Temp Pulse Resp BP Pulse Ox O2 Del Method O2 Flow Rate 98.3 F 59 L 14 163/91 H 93 Nasal Cannula 2 10/14/24 02:00 10/14/24 02:00 10/14/24 02:00 10/14/24 02:00 10/14/24 02:00 10/14/24 02:28 10/14/24 02:28 FiO2 21 10/12/24 19:44 Oxygen Flow Rate (L/min) 2 Oxygen Delivery Method Nasal Cannula Weight: 66 kg Body Mass Index (BMI) 23.5 Intake & Output: Intake and Output for Last 24 Hours 10/12/24 10/13/24 10/14/24 23:59 23:59 23:59 Intake Total 1205 / 1205 895 / 895 1120 / 1120 Output Total 100 / 100 2350 / 2350 350 / 350 Balance 1105 / 1105 -1455 / -1455 770 / 770 Lab / Micro Data 10/14/24 05:20 10/14/24 05:20 Labs: Laboratory Results - last 24 hr 10/14/24 05:20: WBC 9.6, RBC 3.91 L, Hgb 12.2, Hct 37.3, MCV 95.4, MCH 31.2, MCHC 32.7, RDW Std Deviation 58.9 H, RDW Coeff of Silvia 16.8 H, Plt Count 183, MPV 10.8, Immature Gran % (Auto) 0.400, Neut % (Auto) 89.3 H, Lymph % (Auto) 7.3 L, [place] % (Auto) 2.9, Eos % (Auto) 0.0, Baso % (Auto) 0.1, Absolute Neuts (auto) 8.5 H, Absolute Lymphs (auto) 0.70 L, Nucleated RBC % 0, Sodium 139, Potassium 3.7, Chloride 103, Carbon Dioxide 24.1, Anion Gap 12, BUN 31 H, Creatinine 0.98, Estim Creat Clear Calc 49.29 L, Est GFR (MDRD) Non-Af 62, BUN/Creatinine Ratio 31.3 H, Glucose 111 H, Calcium 8.8, Phosphorus 3.3, Magnesium 2.0, Total Bilirubin 0.25, AST 12, ALT 6, Alkaline Phosphatase 66, Total Protein 5.8 L, Albumin 3.2 L, Globulin 2.6, Albumin/Globulin Ratio 1.2 Micro: Microbiology 10/11/24 04:09 Blood Culture (Wb) - Anticubital Left Blood Culture - Preliminary No growth in 48 hours. 10/11/24 13:44 Urine, Clean Catch Legionella Antigen - Final 10/11/24 13:44 Urine, Clean Catch Streptococcus pneumoniae Antigen (M - Final Streptococcus pneumonia Ag 10/11/24 04:20 Mucosa - Nose SARS-CoV-2, Influenza & RSV (PCR) - Final Radiography Diagnostic Testing: Radiology Impression Abdomen CT 10/13/24 11:27 IMPRESSION: 1. Status post appendectomy with ill-defined soft tissue mass within the right lower quadrant, incompletely evaluated without the use of IV contrast. Findings may represent intra-abdominal abscess, phlegmon or inflamed appendiceal stump. 2. Interval improvement in the near-complete consolidation/ground-glass opacification of the right lower lobe. 3. Development of small bilateral pleural effusions/pleural thickening not present on comparison examination. 4. Multifocal ectasia of the aortoiliac vessels, incompletely evaluated on noncontrast examination. Reading Location: [id number]
[2024-10-14 08:00] VITALS: BP 148/78; PULSE 68; RESP 17; TEMP 36.5; O2SAT 90
--- NOTE | 2024-10-14 08:27 | PCM.PN.SRG ---
Subjective Subjective Patient feeling much better today. She states that her right lower quadrant pain dramatically improved after large bowel movement. She does admit to some slight soreness in this area but otherwise seems to be back to her baseline. She is requesting discharge as her uncle is been hospitalized as well for whom she does care for Objective Data Objective Data Vital Signs: Vital Signs Temp Pulse Resp BP Pulse Ox O2 Del Method O2 Flow Rate 98.3 F 59 L 14 163/91 H 93 Nasal Cannula 2 10/14/24 02:00 10/14/24 02:00 10/14/24 02:00 10/14/24 02:00 10/14/24 02:00 10/14/24 02:28 10/14/24 02:28 FiO2 21 10/12/24 19:44 Oxygen Flow Rate (L/min) 2 Oxygen Delivery Method Nasal Cannula Weight: 145 lb 8.081 oz Body Mass Index (BMI) 23.5 Intake & Output: Intake and Output for Last 24 Hours 10/12/24 10/13/24 10/14/24 23:59 23:59 23:59 Intake Total 1205 / 1205 895 / 895 1120 / 1120 Output Total 100 / 100 2350 / 2350 350 / 350 Balance 1105 / 1105 -1455 / -1455 770 / 770 Lab / Micro Data 10/14/24 05:20 10/14/24 05:20 Labs: Laboratory Results - last 24 hr 10/14/24 05:20: WBC 9.6, RBC 3.91 L, Hgb 12.2, Hct 37.3, MCV 95.4, MCH 31.2, MCHC 32.7, RDW Std Deviation 58.9 H, RDW Coeff of Silvia 16.8 H, Plt Count 183, MPV 10.8, Immature Gran % (Auto) 0.400, Neut % (Auto) 89.3 H, Lymph % (Auto) 7.3 L, [place] % (Auto) 2.9, Eos % (Auto) 0.0, Baso % (Auto) 0.1, Absolute Neuts (auto) 8.5 H, Absolute Lymphs (auto) 0.70 L, Nucleated RBC % 0, Sodium 139, Potassium 3.7, Chloride 103, Carbon Dioxide 24.1, Anion Gap 12, BUN 31 H, Creatinine 0.98, Estim Creat Clear Calc 49.29 L, Est GFR (MDRD) Non-Af 62, BUN/Creatinine Ratio 31.3 H, Glucose 111 H, Calcium 8.8, Phosphorus 3.3, Magnesium 2.0, Total Bilirubin 0.25, AST 12, ALT 6, Alkaline Phosphatase 66, Total Protein 5.8 L, Albumin 3.2 L, Globulin 2.6, Albumin/Globulin Ratio 1.2 Micro: Microbiology 10/11/24 04:09 Blood Culture (Wb) - Anticubital Left Blood Culture - Preliminary No growth in 48 hours. 10/11/24 13:44 Urine, Clean Catch Legionella Antigen - Final 10/11/24 13:44 Urine, Clean Catch Streptococcus pneumoniae Antigen (M - Final Streptococcus pneumonia Ag 10/11/24 04:20 Mucosa - Nose SARS-CoV-2, Influenza & RSV (PCR) - Final Radiography Diagnostic Testing: Radiology Impression Abdomen CT 10/13/24 11:27 IMPRESSION: 1. Status post appendectomy with ill-defined soft tissue mass within the right lower quadrant, incompletely evaluated without the use of IV contrast. Findings may represent intra-abdominal abscess, phlegmon or inflamed appendiceal stump. 2. Interval improvement in the near-complete consolidation/ground-glass opacification of the right lower lobe. 3. Development of small bilateral pleural effusions/pleural thickening not present on comparison examination. 4. Multifocal ectasia of the aortoiliac vessels, incompletely evaluated on noncontrast examination. Reading Location: [facility] Physical Exam Const oriented x3 and no apparent distress GI GI Narrative: Very minimal right lower quadrant tenderness to palpation. This is dramatically less than yesterday afternoon. No masses. No rebound or guarding. Assessment & Plan Assessment/Plan (1) Right lower quadrant pain: PLAN: Plan The patient is a 73-year-old female who is status post a laparoscopic appendectomy about 3 to 4 weeks ago. She was admitted with a pneumonia and suddenly developed right lower quadrant pain day before yesterday. This right lower quadrant pain seems to be dramatically improved after a large bowel movement overnight. She states that her uncle has been hospitalized for which she does care for. She would really like to be discharged home if possible. Originally she was scheduled for repeat CT scan of the abdomen with contrast. I feel that this is optional at this point since she has dramatically improved. I suspect the finding on the original CT scan was most likely postoperative in nature and should resolve. This was communicated to the hospitalist caring for this patient
[2024-10-14] MEDS: Aspirin E.C. 81 MG Tablet PO (09:04)
[2024-10-14] MEDS: Enoxaparin 40 MG/0.4 ML Syringe SC (09:04)
[2024-10-14 10:30] VITALS: O2SAT 88; O2SAT 91; O2SAT 93
--- NOTE | 2024-10-14 11:21 | DS.PCM_ITS ---
Providers Date of Admission: 10/11/24 Date of Discharge: 10/14/24 Primary Care Physician: Dr. Lubna Dey MD Consultations 10/11/24 10:13 Consult: Pipe Roller / Pulmonary Medicine Routine Consulting Provider: Intensivists/Pulmonary Med Reason for Consult: acute hypoxic respiratory failure, pneumonia EMERGENT Consult: No MD Notified: Yes Date Notified: 10/11/24 Time Notified: 10:13 Method of Notification: Text Reason For Visit: CAP W/COPD EXACERBATION & HYPOXIA Diagnosis Discharge Diagnosis (1) Right lower quadrant pain: Status: Acute Code(s): R10.31 - Right lower quadrant pain Medications at Discharge Home Medications aspirin 81 mg tablet,delayed release (Adult Low Dose Aspirin) 81 mg PO QDAY 07/28/24 amlodipine 5 mg tablet 5 mg PO DAILY #30 tabs 10/14/24 amoxicillin 875 mg-potassium clavulanate 125 mg tablet 1 tab PO BID #10 tabs 10/14/24 metoprolol tartrate 25 mg tablet 12.5 mg (1/2 x 25 mg) PO BID #30 tabs 10/14/24 prednisone 10 mg tablet 10 mg PO DAILY #30 tabs 10/14/24 Hospital Course Procedures EKG and - (CTA chest/CT abdomen pelvis) Summary of Care Provided Minutes Spent on Discharge: 38 Hospital Course: Patient is a 73-year-old white female who presented emergency department at [facility] on 10/11/2024 with a chief complaint of nausea and vomiting. Patient had a triple a repair in May 2024 at [facility] and has a history of COPD. For about the 2 to 3 days prior to presentation she had increased congestion and cough along with shortness of breath and some back pain. She reported at presentation the symptoms got severe on the night of presentation and she could not take it any longer and decided to be evaluated emergency department. She did have some reported sick contacts. She does not take oxygen at baseline. Vital signs on presentation showed a temperature of 99.4, heart rate 108, respiratory rate 26, blood pressure is 143/80 and pulse ox was 85% on room air. She was placed on 2 L nasal cannula which improved her oxygen saturation to 92% ultimately she required 4 L in the emergency department to get her oxygen consistently greater than 88%. CBC showed a marked leukocytosis with a white count of 24.1 and a considerable left shift. ABG in the emergency department showed a pH of 7.38, PCO2 of 30.4 and a PO2 of 81 on 4 L nasal cannula. Chemistry panel showed marked hypokalemia potassium of 2.8 normal renal function, and mild hyperglycemia. Her initial lactate was 2.0 with a repeat of 4.0. Magnesium was low at 1.1. proBNP was 5789. CTA of the chest showed no filling defects but bilateral multifocal infiltrates noted most impressive in the right middle lobe. She was admitted to the medical floor and placed on broad-spectrum antibiotics with ceftriaxone and azithromycin for community-acquired coverage, started on aggressive pulmonary toilet, and started on IV steroids. COVID/flu/RSV were negative. Blood cultures were negative. Strep pneumo and Legionella antigens were assessed and strep pneumo antigen was positive. Given this her antibiotics were narrowed to ceftriaxone alone. She was noted to be intermittently bradycardic and her baseline medication was metoprolol 50 mg so her metoprolol dose was decreased to 12.5 mg p.o. twice daily and she was started on amlodipine 5 mg daily to address her blood pressure. On 10/13/2024 she complained of pretty severe right lower quadrant pain. She had a recent appendectomy here in August so we did do a CT of her abdomen pelvis. Unfortunately, it was noncontrasted due to slight bump in her renal function as she was also diuresed due to her elevated BNP at the time presentation. Echocardiogram was performed and showed EF of 60% with stage I diastolic dysfunction but was otherwise unremarkable. CT showed a fluid collection in the right lower quadrant so general surgery was consulted. There was concern that this fluid collection could potentially be abscess. The plan was to obtain a contrasted CT scan if her renal function improved on 10/14/2024 which it did, however the patient's pain had resolved after large bowel movement and per discussion with general surgery they felt that that was likely the etiology of her pain and the small fluid collection is likely seroma versus hematoma especially since her white count had completely resolved. At the time of discharge her white count was normal her right lower quadrant pain had resolved and she was requiring 2 L of oxygen with exertion and no oxygen at rest. I have reviewed the oxygen testing, and this patient qualifies for the home equipment and portability. The patient is mobile in the home and the community. We are able to get her oxygen through local DME and this was set up prior to discharge. She was discharged home on 10/14/2024. Again, prescriptions for the amlodipine and metoprolol dose change were sent to local pharmacy in addition to Augmentin for 5 more days to complete a total of 7 days and a prednisone taper. She was also instructed to continue to use her Acapella and incentive spirometry and referred to pulmonary medicine. Clinically, after treatment of her pneumonia, she will need outpatient PFTs and be reassessed for supplemental oxygen. She has to follow-up with her primary care physician in the next week. Discharge diagnoses: Acute hypoxic respiratory failure secondary to pneumococcal pneumonia Sepsis secondary to pneumococcal pneumonia Elevated BNP Bradycardia Abdominal pain-resolved KRYSTA-resolved Essential hypertension History of AAA status post repair History of tobacco abuse Constipation Hypokalemia-resolved Chronic anxiety Physical Exam Narrative Patient states her right lower quadrant abdominal pain resolved after a large bowel movement. States that she is feeling much better from a breathing standpoint is anxious to go home. States that her uncle was admitted for heart failure. Const alert, oriented x3, average body habitus, no limitations and well nourished; Negative for no apparent distress Constitutional Narrative: Older, white female, sitting up in a chair at the bedside, appears well, nontoxic, on room air at this time, nursing at bedside getting ready to do ambulatory pulse ox General Appearance: cooperative, comfortable, well kempt and well developed Exam Limitations: no limitations HEENT normocephalic, head/scalp atraumatic and moist oral mucous membranes HEENT Narrative: Mallampati 2, no thrush Eyes EOMs intact bilaterally and conjunctivae normal Eyes Narrative: No scleral icterus Neck no lymphadenopathy and supple Neck Narrative: Trachea midline Resp normal respiratory effort, no retractions, no use of accessory muscles and No clear to auscultation bilaterally Resp Narrative: Diffusely diminished but clear Auscultation: Negative for rales, rhonchi or wheezes Cardio regular rate, regular rhythm, S1 normal heart sound, S2 normal heart sound, no murmurs, no rub, no gallops and no clicks GI normal to inspection, nondistended, normoactive bowel sounds, soft to palpation and non-tender GI Narrative: Abdomen is now without any tenderness in the right lower quadrant Extremity no clubbing, cyanosis or edema Extremity Narrative: 2+ pedal pulses Skin skin turgor normal, no jaundice, no petechiae and no mottling Neuro oriented x3, moves all extremities and no focal motor deficits Speech: speech normal Psych mental status grossly normal, thought process normal, cooperative and affect normal Psych Narrative: Patient interacts appropriately, affect is normalized, eye contact is good, patient is pleasant Appearance: appropriate Weight / BMI Weight Weight: 66 kg Body Mass Index (BMI) 23.5 ABG / Lab / Microbiology Data 10/14/24 05:20 10/14/24 05:20 Laboratory: Laboratory Results - last 24 hr 10/14/24 05:20: WBC 9.6, RBC 3.91 L, Hgb 12.2, Hct 37.3, MCV 95.4, MCH 31.2, MCHC 32.7, RDW Std Deviation 58.9 H, RDW Coeff of Silvia 16.8 H, Plt Count 183, MPV 10.8, Immature Gran % (Auto) 0.400, Neut % (Auto) 89.3 H, Lymph % (Auto) 7.3 L, [place] % (Auto) 2.9, Eos % (Auto) 0.0, Baso % (Auto) 0.1, Absolute Neuts (auto) 8.5 H, Absolute Lymphs (auto) 0.70 L, Nucleated RBC % 0, Sodium 139, Potassium 3.7, Chloride 103, Carbon Dioxide 24.1, Anion Gap 12, BUN 31 H, Creatinine 0.98, Estim Creat Clear Calc 49.29 L, Est GFR (MDRD) Non-Af 62, BUN/Creatinine Ratio 31.3 H, Glucose 111 H, Calcium 8.8, Phosphorus 3.3, Magnesium 2.0, Total Bilirubin 0.25, AST 12, ALT 6, Alkaline Phosphatase 66, Total Protein 5.8 L, A lbumin 3.2 L, Globulin 2.6, Albumin/Globulin Ratio 1.2 Microbiology: Microbiology 10/11/24 04:09 Blood Culture (Wb) - Anticubital Left Blood Culture - Preliminary No growth in 48 hours. 10/11/24 13:44 Urine, Clean Catch Legionella Antigen - Final 10/11/24 13:44 Urine, Clean Catch Streptococcus pneumoniae Antigen (M - Final Streptococcus pneumonia Ag 10/11/24 04:20 Mucosa - Nose SARS-CoV-2, Influenza & RSV (PCR) - Final Radiography Diagnostic Testing: Radiology Impression Abdomen CT 10/13/24 11:27 IMPRESSION: 1. Status post appendectomy with ill-defined soft tissue mass within the right lower quadrant, incompletely evaluated without the use of IV contrast. Findings may represent intra-abdominal abscess, phlegmon or inflamed appendiceal stump. 2. Interval improvement in the near-complete consolidation/ground-glass opacification of the right lower lobe. 3. Development of small bilateral pleural effusions/pleural thickening not present on comparison examination. 4. Multifocal ectasia of the aortoiliac vessels, incompletely evaluated on noncontrast examination. Reading Location: [facility] D/ Instructions Discharge Diet: Low fat / Low cholesterol Discharge Activity: Return to Normal Activity DC O2, CPAP, BIPAP Needs Home O2 Discharge instructions: Yes Type of respiratory needs?: Oxygen Oxygen frequency: At rest and With Ambulation Oxygen liters per minute during Ambulation: 2 DC home with Oxygen: Yes Home O2 MD Review: I have reviewed the oxygen testing, and the patient qualifies for home oxygen equipment and portability. The patient is mobile in the home and the community. Meaningful Use Info Meaningful Use Meaningful Use Diagnoses (Choose all that apply): None applicable Ischemic Stroke Statin Dosing Therapy Reference: STATIN DOSE THERAPY REFERENCE: * Patients > 75 years receive moderate or high dose statin therapy. * Patients 75 years or YOUNGER should receive HIGH intensity statin dose unless contraindicated. You will be required to document reason for non-treatment if statin daily dose does not meet guidelines. HIGH DOSE STATIN THERAPY DAILY Atorvastatin > than or = to 40 mg Rosuvastatin > than or = to 20 mg Amlodipine + Atorvastatin > than or = to 2.5/40 mg Ezetimibe + Simvastatin 10/80 mg Simvastatin 80mg Discharge Plan Admission Admit Date/Time: 10/11/24 05:39 Primary Reason for Your Visit: Shortness of breath Attending Provider: Gabriela Contreras Primary Care Provider: Lubna Dey Consulting Providers: Nikolai Mejia; Hans Hatch; Dakota Rice; Vitaly Umana; Escobar Zavala; Anshul Quan; Guillermo Klein; Joni Kelley; Shawna Olivarez; Shane Perea; Satya Rocha; Preston Patrick; Zaira Baltazar; Corine Cedeño; Uma Garrison; Michael Benton; Jono Verdin; Rosalio Mcpherson; Sudeep Clements; Luis Barron; Genaro Agrawal; Barber Almendarez; Trent Mcgregor; Lee Bucio; Neisha Boston Instructions Additional Instructions / Restrictions: 1. Your heart rate was found to be lower so we decreased your metoprolol from 50 mg to 12.5 mg twice daily and added amlodipine 5 mg daily to help with your blood pressure control 2. Please complete the antibiotics as ordered 3. Please complete prednisone taper as ordered 4. Continue to use incentive spirometer and Acapella for at least the next 7 to 10 days 5. You do not need to use oxygen at rest however when you are moving around you need to use 2 L until otherwise instructed Discharge Orders/Prescriptions Prescriptions: New metoprolol tartrate 25 mg Tablet 12.5 mg PO BID Qty: 30 0RF amlodipine 5 mg tablet 5 mg PO DAILY Qty: 30 0RF prednisone 10 mg tablet 10 mg PO DAILY Qty: 30 0RF amoxicillin-pot clavulanate 875-125 mg tablet 1 tab PO BID Qty: 10 0RF Continued aspirin [Adult Low Dose Aspirin] 81 mg tablet,delayed release (DR/EC) 81 mg PO QDAY Discontinued metoprolol tartrate 50 mg tablet PO Referrals / Follow Up: Escobar Zavala DO [Med Staff - Active Staff] - See Referral Note (Call to set up an appointment to be seen for your lungs at earliest available appointment) Lubna Dey MD [Primary Care Provider] - Within 1 Week Disposition Disposition (needs filled in before D/C Order can be placed): Home, Self Care Charges/Coding Visit Charges Inpatient E&M: 63456 Disch Hosp >30min
[2024-10-14 11:29] VITALS: BP 159/108; PULSE 75; RESP 17; TEMP 36.8; O2SAT 91
--- NOTE | 2024-10-14 12:02 | CASEMGMT ---
Patient has order for discharge. Patient qualifies for home oxygen at discharge, script received. RN CM in to discuss needs at discharge. Patient prefers [facility] for home oxygen. Patient denies further needs or help at discharge. Patient had no further questions or concerns. RN SAM[facility] and arranged for oxygen tank to be delivered to patient's room prior to discharge. RN CM updated discharge plan.
--- NOTE | 2024-10-14 12:20 | PHA.DC_ITS ---
Pharmacy [facility] has performed discharge medication reconciliation and counseling for this patient. The patient's discharge medication list was reviewed for discrepancies and discrepancies were resolved. The patient was counseled on the following discharge medications and changes in medications for homegoing were reviewed. The Reason for Use, instructions for use, and potential side effects were reviewed for all new medications. The patient's questions regarding all of their medications were answered. 1. Prednisone 40 mg x 3 days, 30 mg x 3 days, 20 mg x 3, 10 mg x 3 2. Amlodipine 5 mg PO daily 3. Metoprolol tartrate 12.5 mg PO BID 4. Augmentin 875 mg PO BID x 5 days The patient was able to verbally demonstrate an understanding of their discharge medications. Medications at Discharge Home Medications aspirin 81 mg tablet,delayed release (Adult Low Dose Aspirin) 81 mg PO QDAY 07/28/24 amlodipine 5 mg tablet 5 mg PO DAILY #30 tabs 10/14/24 amoxicillin 875 mg-potassium clavulanate 125 mg tablet 1 tab PO BID #10 tabs 10/14/24 metoprolol tartrate 25 mg tablet 12.5 mg (1/2 x 25 mg) PO BID #30 tabs 10/14/24 prednisone 10 mg tablet 10 mg PO DAILY #30 tabs 10/14/24
[2024-10-14] MEDS: amLODIPine 5 MG Tablet PO (13:28)
[2024-10-14 17:08] LABS: Mycoplasma Pneum AB IgG 216 U/mL (0-99); Mycoplasma pneum. AB IgM 949 U/mL (0-769)
== END 2024-10-14 15:16 | disposition home or self-care (01) | DRG 193 ==
LOC: ED 05:45 → PCU 05:54
PROVIDERS: Internal Medicine Critical Care Medicine; Student in an Organized Health Care Education/Training Program; Admitting Provider Hospitalist; Emergency Provider Emergency Medicine; PCP Internal Medicine; Visit Provider Internal Medicine
DX: J13 Pneumonia due to Streptococcus pneumoniae (principal); J96.01 Acute respiratory failure with hypoxia; I50.31 Acute diastolic (congestive) heart failure; K66.1 Hemoperitoneum; J44.0 Chronic obstructive pulmonary disease with (acute) lower respiratory infection; E87.20 Acidosis, unspecified; N17.9 Acute kidney failure, unspecified; J44.1 Chronic obstructive pulmonary disease with (acute) exacerbation; I11.0 Hypertensive heart disease with heart failure; I71.40 Abdominal aortic aneurysm, without rupture, unspecified; F32.A Depression, unspecified; D64.9 Anemia, unspecified; J69.0 Pneumonitis due to inhalation of food and vomit; E87.6 Hypokalemia; F17.210 Nicotine dependence, cigarettes, uncomplicated; R00.1 Bradycardia, unspecified; F10.90 Alcohol use, unspecified, uncomplicated; K59.00 Constipation, unspecified; Z86.16 Personal history of COVID-19; Z90.49 Acquired absence of other specified parts of digestive tract; Z79.01 Long term (current) use of anticoagulants; Z86.79 Personal history of other diseases of the circulatory system; Z95.828 Presence of other vascular implants and grafts; R10.31 Right lower quadrant pain; Z79.52 Long term (current) use of systemic steroids
CPT/HCPCS: 36415; 36600; 71275; 74176; 80048; 80053; 82803; 83605; 83735; 83880; 84100; 85025; 85027; 85610; 85730; 86738; 87040; 87449; 87631; 93005; 93306; 94640; 94668; 94762; 99284; Q9957; Q9967; A4216; C8929; J1938; J2405

== ENCOUNTER 2024-11-07 12:02 | Emergency (ER) | payer MEDICARE, SELFPAY ==
[2024-11-07 12:02] VITALS: BP 149/69; PULSE 64; RESP 14; TEMP 36.1; O2SAT 98; BMI 23.1
--- NOTE | 2024-11-07 12:17 | EKG12_ITS ---
Test Reason : SOB Blood Pressure : */* mmHG Vent. Rate : 58 BPM Atrial Rate : 58 BPM P-R Int : 172 ms QRS Dur : 90 ms QT Int : 496 ms P-R-T Axes : 40 -21 68 degrees QTcB Int : 486 ms Sinus bradycardia Septal infarct (cited on or before 18-Oct-2020) Abnormal ECG Confirmed by ALIZE VALDES, SWAPNIL ([id number]), chilling hood operator PORTIA PARK ([id number]) on 11/10/2024 8:46:20 AM Referred By: Confirmed By: SWAPNIL HERRMANN MD
--- NOTE | 2024-11-07 12:17 | RAD_ITS ---
PROCEDURE: CHEST PA AND LATERAL 11/07/2024 REASON FOR EXAM: COUGH TECHNIQUE: Frontal and lateral views of the chest. COMPARISON: Prior study dated October 23, 2024. FINDINGS: Hardware: EKG electrodes are seen. Heart: The heart is nonenlarged. Mediastinum: Calcification of the aortic arch and descending thoracic aorta. Lungs: Stable calcified granuloma in the left lower lobe. The previously seen left lower lobe infiltrate has cleared. Bones: Degenerative changes are identified within the thoracic spine. Dextroscoliosis. RAD/Chest PA and Lateral IMPRESSION: No acute abnormality is seen. Reading Location: [id number]
--- NOTE | 2024-11-07 12:19 | EDS_ITS ---
HPI <MYRIAM Camacho - Last Filed: 11/07/24 13:49> History of Present Illness Chief Complaint: Shortness of Breath Narrative Narrative: 73-year-old female with PMH of COPD, AAA repair presents with cough. She states she has had chronic back pain since her aneurysm repair in May 2024. However over the last 2 days she has had increased pain near her right shoulder blade with a slight productive cough. She has hot flashes and chills. She had pneumonia 1 month ago and was sent home with oxygen as needed and states over the last 2 days she has been dropping 88% on room air so was wearing 2 L. Her visiting nurse recommended she come in for evaluation. PFS <MYRIAM Camacho - Last Filed: 11/07/24 13:49> [facility] Medical History (Updated 11/07/24 @ 13:25 by MYRIAM Camacho) COPD (chronic obstructive pulmonary disease) Dysuria Right lower quadrant pain Pleural effusion on left Atelectasis of left lung Postoperative urinary retention Situational insomnia Chronic anxiety Preop exam for internal medicine Acute bronchitis, unspecified COVID-19 Contact with and (suspected) exposure to other viral communicable diseases Elevated MCV Elevated hemoglobin Hypokalemia Enlarged thyroid gland Uncontrolled hypertension Breast lump Hearing problem AAA (abdominal aortic aneurysm) Rash Knee pain, chronic Hay fever Hemorrhoids HTN (hypertension) Home Medications ?Medication ?Instructions ?Recorded ?Last Taken ?Type amlodipine 5 mg tablet 5 mg PO DAILY #30 tabs 10/1411/07/24 Rx azithromycin 250 mg tablet 250 mg PO DAILY 4 days #4 t abs 11/07/24 Unknown Rx (Zithromax) metoprolol tartrate 25 mg tablet 25 mg PO BID 11/07/24 11/07/24 History Allergy/AdvReac Type Severity Reaction Status Date / Time Seasonal Allergies: Uncoded AdvReac Intermediate Runny nose Verified 11/07/24 12:03 NSAIDS (Non-Steroidal AdvReac Nausea Verified 11/07/24 12:03 Anti-Inflamma Family History Other Anxiety with depression Arthritis Asthma Diabetes Hyperlipemia Hypertension Surgical History History of appendectomy Status post AAA (abdominal aortic aneurysm) repair History of AAA (abdominal aortic aneurysm) repair Cataract fragments in eye following surgery Social History Smoking Status: Current every day smoker tobacco type: cigarettes alcohol intake: current alcohol intake frequency: holidays/special occasions only substance use type: does not use ROS <MYRIAM Camacho - Last Filed: 11/07/24 13:49> ROS ED ROS Narrative Constitutional: Positive for subjective fever, chills, malaise. CVS: Negative for palpitations, chest pain, syncope. Respiratory: Positive for cough. GI: Negative for abdominal pain, nausea, vomiting, diarrhea. EXAM <MYRIAM Camacho - Last Filed: 11/07/24 13:49> Physical Exam Narrative Exam Narrative: CONST: Patient sitting in no acute distress. EYES: Normal inspection. NECK: Normal inspection. RESP: No respiratory distress, Rales in right lung base. CVS: Regular rate and rhythm, no murmur, no gallop. ABD: Soft and nontender, no guarding or rebound, nondistended. Back: Normal inspection, healed surgical scar on the left side of her back from AAA repair. SKIN: Color normal, no rash, warm, dry, intact. EXTREMITIES: Normal appearance, no pedal edema. NEURO: Alert and answering questions appropriately. PSYCH: Normal affect. Const Vital Signs: 11/07/24 12:02 11/07/24 12:36 11/07/24 13:22 Temperature 97 F L 97 F L Temperature Source Temporal Pulse Rate 64 58 L Respiratory Rate 14 16 Respiratory Effort Short of Breath Blood Pressure 149/69 H 127/77 H Blood Pressure Mean 95 93 Pulse Ox 98 95 Oxygen Delivery Method Room Air Room Air <Dr. Gurmeet Barillas MD - Last Filed: 11/07/24 13:30> Physical Exam Const Vital Signs: 11/07/24 12:02 11/07/24 12:36 11/07/24 13:22 Temperature 97 F L 97 F L Temperature Source Temporal Pulse Rate 64 58 L Respiratory Rate 14 16 Respiratory Effort Short of Breath Blood Pressure 149/69 H 127/77 H Blood Pressure Mean 95 93 Pulse Ox 98 95 Oxygen Delivery Method Room Air Room Air MDM <MYRIAM Camacho - Last Filed: 11/07/24 13:49> MDM MDM Narrative Medical decision making narrative: History gathered from: Patient and family member Patient presents with cough and right thoracic back pain. She was treated for pneumonia last month with Augmentin and prednisone. She appears well and nontoxic. Vital signs stable. She reports hypoxia at home but is 98% [place] fever and 93% or above with ambulation. She has rales in her right lung base. She reports pain in the right thoracic back. No overlying skin changes. CBC and BMP are unremarkable. EKG is nonischemic. Troponin 18. CXR is negative, however clinically with her symptoms and rales I am concerned she may be developing pneumonia. She states whenever she has pneumonia in the past she has back pain. She had a CT scan less than a month ago that was negative for PE or dissection and her symptoms today do not sound concerning for PE so I do not think this needs repeated. She will be treated with a Z-Rja and was given a [place] here for pain and advised to take [id number] pain relievers. Return precautions discussed. She was discharged in stable condition. Lab Data Attestation: I reviewed the patient's lab results. Labs: Laboratory Results - last 24 hr 11/07/24 12:25 WBC 6.1 RBC 3.86 L Hgb 12.0 Hct 35.4 L MCV 91.7 MCH 31.1 MCHC 33.9 RDW Std Deviation 51.8 H RDW Coeff of [place]via 15.5 H Plt Count 192 MPV 10.1 Immature Gran % (Auto) 0.500 Neut % (Auto) 56.4 Lymph % (Auto) 25.8 [place] % (Auto) 7.2 Eos % (Auto) 9.4 H Baso % (Auto) 0.7 Absolute Neuts (auto) 3.4 Absolute Lymphs (auto) 1.57 Nucleated RBC % 0 Sodium 144 Potassium 3.8 Chloride 108 Carbon Dioxide 25.0 Anion Gap 12 BUN 17 Creatinine 0.84 Estim Creat Clear Calc 57.51 Est GFR (MDRD) Non-Af 74 BUN/Creatinine Ratio 19.9 Glucose 94 Calcium 9.5 Troponin T High Sens 18 H Radiography Diagnostic Testing: Clinical Impression(s) from Imaging Studies Chest X-Ray 11/07/24 12:17 IMPRESSION: No acute abnormality is seen. Reading Location: [facility] ED attending interpretation of 2-view chest x-ray shows normal heart size, no acute infiltrate, edema, or effusion. <Dr. Gurmeet Barillas MD - Last Filed: 11/07/24 13:30> [facility] Lab Data Labs: Laboratory Results - last 24 hr 11/07/24 12:25 WBC 6.1 RBC 3.86 L Hgb 12.0 Hct 35.4 L MCV 91.7 MCH 31.1 MCHC 33.9 RDW Std Deviation 51.8 H RDW Coeff of [place] 15.5 H Plt Count 192 MPV 10.1 Immature Gran % (Auto) 0.500 Neut % (Auto) 56.4 Lymph % (Auto) 25.8 [place] % (Auto) 7.2 Eos % (Auto) 9.4 H Baso % (Auto) 0.7 Absolute Neuts (auto) 3.4 Absolute Lymphs (auto) 1.57 Nucleated RBC % 0 Sodium 144 Potassium 3.8 Chloride 108 Carbon Dioxide 25.0 Anion Gap 12 BUN 17 Creatinine 0.84 Estim Creat Clear Calc 57.51 Est GFR (MDRD) Non-Af 74 BUN/Creatinine Ratio 19.9 Glucose 94 Calcium 9.5 Troponin T High Sens 18 H Radiography Diagnostic Testing: Clinical Impression(s) from Imaging Studies Chest X-Ray 11/07/24 12:17 IMPRESSION: No acute abnormality is seen. Reading Location: [facility] Treatment and Re-Evaluation Comments:: I have personally performed a face to face assessment of the patient and have reviewed the DANIEL Note. I performed a substantive portion of the visit including all aspects of the following. My lizama findings include: History is 1-2 days of pleuritic pain in the right upper back that feels similar to when she had pneumonia last month. No cough. No fevers or chills. No dyspnea. No chest discomfort. No leg pain or swelling. No recent immobilization or hospitalization/long travel or surgery. Pulse ox went into the 80s with exertion at home so she put her oxygen on and continued monitoring and had no more hypoxia, just 2 L nasal cannula. She does not use it all the time. Exam is Rales in the right midlung field, where the patient has symptoms. Conversive in full sentences. Heart is regular. No leg edema or calf tenderness. Otherwise well-appearing. Medical Decision Making 2 view chest x-ray my interpretation is unremarkable. This is all consistent with clinical pneumonia, I suspect it is not showing up on x-ray yet and she needs a follow-up. We are going to treat her empirically for pneumonia with a Z-Raj, she was on Augmentin before. She does not need steroids for COPD right now. She has been keeping an eye on her oxygen at home, I did discuss not using oxygen if she does not need it with regards to her pulse oximetry as it can harm patients with COPD. I do not think this is a PE, she had a CT angiography last month that was negative for PE, I do not think that needs to be repeated right now, because I think this is a fairly clear clinical diagnosis. Patient is in agreement with this. Other additions or changes: [None] Discharge Plan Triage Chief Complaint: Shortness of Breath ED Midlevel Provider: Shivani Velasco ED Provider: Gurmeet Barillas Dx/Rx/DC Orders Clinical Impression: Pneumonia, History of COPD Instructions: ED Pneumonia (Adult) Prescriptions: New azithromycin [Zithromax] 250 mg tablet 250 mg PO DAILY 4 Days Qty: 4 0RF Rx Instructions: start on day 2 of therapy No Action amlodipine 5 mg tablet 5 mg PO DAILY Qty: 30 0RF metoprolol tartrate 25 mg Tablet 25 mg PO BID Primary Care Provider: Lubna Dey Referrals: Lubna Dey MD [Primary Care Provider] - Activity Restrictions/Additional Instructions: Take all of the antibiotics. Follow-up with your primary care doctor next week. You may need a repeat x-ray. Print Language: Sami Disposition Disposition: Home, Self Care Discharge Date/Time: 11/07/24 13:45
[2024-11-07 12:26] VITALS: O2SAT 94
[2024-11-07 12:36] VITALS: O2SAT 94
[2024-11-07 12:39] LABS: Absolute Lymphocyte Count 1.57 X10^3/uL (0.83-4.51); Absolute Neutrophil Count 3.4 X10^3/uL (2.0-7.7); Basophil# 0.04 X10^3/uL; Basophil% 0.7 % (0-1); Eosinophil# 0.57 X10^3/uL; Eosinophils% 9.4 % (0-5); Hematocrit 35.4 % (37-47); Lymphocyte # 1.57 X10^3/ul (0.83-4.51); Lymphocyte % 25.8 % (19-41); Mean Corp Hgb Conc 33.9 g/dL (32-36); Mean Corpuscular Hgb 31.1 pg (27.0-32.0); Mean Corpuscular Volume 91.7 fL (81-99); Mean Platelet Vol. 10.1 fl (6.2-12.0); Monocyte# 0.44 X10^3/uL; Monocyte% 7.2 % (0-10); NRBC Flagged by Analyzer 0 % (0-5); Neutrophil # 3.43 X10^3/uL (2.7-7.7); Neutrophil % 56.4 % (47-70); Platelet Count 192 K/mm3 (150-450); RBC Distribution Width CV 15.5 % (11.6-14.6); RBC Distribution Width SD 51.8 fl (35.1-43.9); Red Blood Count 3.86 M/mm3 (4.2-5.4); White Blood Count 6.1 K/mm3 (4.4-11.0)
[2024-11-07 12:57] LABS: Anion Gap 12 (5-15); BUN 17 mg/dL (4-19); BUN/Creat Ratio 19.9 RATIO (10-20); Calcium,Total 9.5 mg/dL (7.6-11.0); Chloride 108 mmol/L (98-108); Creatinine, Serum 0.84 mg/dL (0.70-1.20); EST Glomerular Filtration Rate 74 (>60); Estimated Creatinine Clearance 57.51 ml/min (50-250); Glucose 94 mg/dL (70-99); Potassium 3.8 mmol/L (3.3-5.1); Sodium Level 144 mmol/L (133-145); Troponin T High Sensitivity 18 ng/L (<=14)
[2024-11-07] MEDS: HYDROcodone Bitartrate/Apap 5/325 Tablet PO (13:20)
[2024-11-07 13:22] VITALS: BP 127/77; PULSE 58; RESP 16; TEMP 36.1; O2SAT 95
[2024-11-07] MEDS: Azithromycin 250 MG Tablet 500 MG PO (13:42)
== END 2024-11-07 13:45 | disposition home or self-care (01) ==
PROVIDERS: Physician Assistant; Emergency Provider Emergency Medicine; PCP Internal Medicine; Visit Provider Emergency Medicine
DX: J18.9 Pneumonia, unspecified organism (principal); J44.9 Chronic obstructive pulmonary disease, unspecified; I10 Essential (primary) hypertension; M25.511 Pain in right shoulder; M54.6 Pain in thoracic spine; F17.210 Nicotine dependence, cigarettes, uncomplicated; Z86.16 Personal history of COVID-19; G89.29 Other chronic pain
CPT/HCPCS: 71046; 80048; 84484; 85025; 93005; 99282; A4216

== ENCOUNTER 2025-02-08 12:23 | Emergency (ER) | payer MEDICARE, SELFPAY ==
[2025-02-08 12:23] VITALS: BP 151/121; PULSE 66; RESP 19; TEMP 36.6; O2SAT 96; BMI 22.4
--- NOTE | 2025-02-08 13:08 | EDS_ITS ---
HPI HPI - GI History of Present Illness Chief Complaint: Abd Pain Narrative Narrative: Patient is a 74-year-old female presenting to the emergency department for abdominal pain. Patient has an extensive past medical history as below most notable for appendectomy and status post AAA repair. Patient states that for the past 3 days she has had abdominal bloating and discomfort. States that the pain has worsened since it initially started progressively. Endorses nausea with episodes of nonbloody, nonbilious emesis. Reports that she is constipated and last had a bowel movement 3 days ago and this was after taking MiraLAX. Denies dysuria or hematuria. Denies fever or chills. Denies chest pain or shortness of breath. [facility] Medical History Anxiety and depression COPD (chronic obstructive pulmonary disease) Dysuria Right lower quadrant pain Pleural effusion on left Atelectasis of left lung Postoperative urinary retention Situational insomnia Chronic anxiety Preop exam for internal medicine Acute bronchitis, unspecified COVID-19 Contact with and (suspected) exposure to other viral communicable diseases Elevated MCV Elevated hemoglobin Hypokalemia Enlarged thyroid gland Uncontrolled hypertension Breast lump Hearing problem AAA (abdominal aortic aneurysm) Rash Knee pain, chronic Hay fever Hemorrhoids HTN (hypertension) Home Medications ?Medication ?Instructions ?Recorded ?Last Taken ?Type amlodipine 5 mg tablet 5 mg PO DAILY #90 tabs 11/10 Unknown Rx metoprolol tartrate 25 mg tablet 25 mg PO BID #180 tab s 11/10/24 Unknown Rx escitalopram oxalate 5 mg tablet 5 mg PO QDAY #90 tabs 01/19/25 Unknown Rx (Lexapro) dupilumab 300 mg/2 mL subcutaneous 300 mg subcut 02/08 Unknown History pen injector (Dupixent) omeprazole 40 mg capsule,delayed 40 mg PO DAILY #14 ca ps 02/08/25 Unknown Rx release ondansetron 4 mg disintegrating 4 mg PO Q8H PRN PRN Na usea #10 tabs 02/08/25 Unknown Rx tablet Allergy/AdvReac Type Severity Reaction Status Date / Time Seasonal Allergies: Uncoded AdvReac Intermediate Runny nose Verified 02/08/25 12:24 NSAIDS (Non-Steroidal AdvReac Nausea Verified 02/08/25 12:24 Anti-Inflamma Family History Other Anxiety with depression Arthritis Asthma Diabetes Hyperlipemia Hypertension Surgical History History of appendectomy Status post AAA (abdominal aortic aneurysm) repair History of AAA (abdominal aortic aneurysm) repair Cataract fragments in eye following surgery Social History Smoking Status: Heavy Smoker (>10/day) alcohol intake: current alcohol intake frequency: holidays/special occasions only substance use type: does not use ROS ROS ED ROS Narrative see HPI EXAM Physical Exam Narrative Exam Narrative: Vital signs: Reviewed General: Alert and oriented. No acute distress HEENT: Head is normocephalic and atraumatic, sinuses nontender, pupils equal round and reactive. Nares are patent. Oropharynx and throat exams normal. Neck: Supple without lymphadenopathy nontender Cardiovascular: Regular rate and rhythm, no murmurs. No rubs or gallops. Normal S1 and S2 Respiratory: Clear to auscultation bilaterally. No wheezes, rales, rhonchi Abdominal: Protuberant. Tender to palpation in all quadrants however most tender in the right lower and right upper quadrant. Normal bowel sounds. No guarding or rebound. Prior surgical scar on the left sided abdomen. Extremities: No tenderness. No bruising. Normal range of motion. Normal sensation. Skin: No rash or redness. Neurological: Cranial nerves II through XII are grossly intact. Normal strength and sensation. Normal cerebellar function The rest of the physical exam is unremarkable Const Vital Signs: 02/08/25 12:23 02/08/25 14:17 02/08/25 15:37 Temperature 97.9 F 97.3 F L Temperature Source Temporal Pulse Rate 66 46 L 62 Respiratory Rate 19 H 14 14 Blood Pressure 151/121 H 141/56 H 135/81 H Blood Pressure Mean 131 84 99 Pulse Ox 96 94 100 Oxygen Delivery Method Room Air Room Air MDM MDM MDM Narrative Medical decision making narrative: Patient is a 74-year-old female presenting to emergency department for abdominal pain for the past 3 days. Patient was seen and examined. Vitals are stable. Patient resting in bed comfortably in no acute distress. Differential includes but is not limited to: Constipation, obstruction, colitis, UTI Patient started on fluids and given morphine and Zofran for symptomatic control. Labs and CT imaging with contrast ordered. CBC with no leukocytosis and hemoglobin of 15.3. CMP with mildly elevated alk phos of 130, otherwise no significant abnormalities. Urinalysis with no evidence of infection. Ct shows acute inflammatory process involving the gastric antrum, pyloric channel, duodenum and proximal jejunum consistent with a combination of gastritis, duodenitis and jejunitis. No mass lesion is noted but there is diffuse inflammatory stranding of the mesenteric fat and subcentimeter in short axis dimension likely associated reactive lymph nodes. No suspicious solid organ abnormalities, simple renal cysts, no specific follow-up needed. Patient and family at bedside updated on the findings. Patient given a prescription for omeprazole as well as Zofran. She was given GI follow-up for EGD and possible H. pylori testing. She was instructed to come back if she develops any worsening abdominal pain, vomiting or fevers. Patient and family feel comfortable with the plan. Discharged home in stable condition with strict return precautions. Clinical impression: Gastritis Duodenitis Jejunitis History & Record Review Discussion w/independent historian: Patient and Family Lab Data Attestation: I reviewed the patient's lab results. Labs: Laboratory Results - last 24 hr 02/08/25 02/08/25 12:37 14:14 WBC 8.6 RBC 4.63 Hgb 15.3 H Hct 45.4 MCV 98.1 MCH 33.0 H MCHC 33.7 RDW Std Deviation 55.5 H RDW Coeff of Silvia 16.3 H Plt Count 205 MPV 9.6 Immature Gran % (Auto) 0.700 Neut % (Auto) 74.8 H Lymph % (Auto) 15.6 L [place] % (Auto) 7.0 Eos % (Auto) 1.6 Baso % (Auto) 0.3 Absolute Neuts (auto) 6.4 Absolute Lymphs (auto) 1.34 Nucleated RBC % 0 Sodium 140 Potassium 4.0 Chloride 102 Carbon Dioxide 27.0 Anion Gap 11 BUN 15 Creatinine 0.77 Estim Creat Clear Calc 59.51 Est GFR (MDRD) Non-Af 82 BUN/Creatinine Ratio 18.8 Glucose 91 Calcium 9.3 Total Bilirubin 0.57 AST 15 ALT 8 Alkaline Phosphatase 130 H Total Protein 6.5 Albumin 3.8 Globulin 2.7 Albumin/Globulin Ratio 1.4 Lipase 97 H Urine Color Yellow Urine Clarity Clear Urine pH 6.5 Ur Specific [place] 1.010 Urine Protein 30 H Urine Glucose (UA) Normal Urine Ketones Negative Urine Occult Blood Negative Urine Nitrite Negative Urine Bilirubin Negative Urine Urobilinogen Normal Ur Leukocyte Esterase Negative Urine RBC 0 SEEN Urine WBC 0 SEEN Ur Squamous Epith Cells 0-5 SEEN Urine Bacteria 0 SEEN Urine Mucus 0 SEEN Radiography Diagnostic Testing: Clinical Impression(s) from Imaging Studies Abdomen/Pelvis CT 02/08/25 13:20 IMPRESSION: Acute inflammatory process involving the gastric antrum, pyloric channel, duodenum and proximal jejunum consistent with a combination of gastritis, duodenitis and jejunitis. No mass lesion is noted but there is diffuse inflammatory stranding of the mesenteric fat and subcentimeter in short axis dimension likely associated reactive lymph nodes. No suspicious solid organ abnormalities, simple renal cysts, no specific follow- up needed. Colonic diverticulosis Dense atherosclerotic calcifications in the aorta with mural thrombus and narrowing of the aorta by a proximally 20%. There is borderline aneurysmal dilatation at 3 cm Reading Location: [facility] Discharge Plan Triage Chief Complaint: Abd Pain ED Provider: Iliana Rosas Dx/Rx/DC Orders Clinical Impression: Gastritis and duodenitis, Jejunitis Instructions: Duodenitis, ED Gastritis (Adult) Prescriptions: New omeprazole 40 mg capsule,delayed release(DR/EC) 40 mg PO DAILY Qty: 14 0RF ondansetron 4 mg tablet,disintegrating 4 mg PO Q8H PRN PRN (Reason: Nausea) Qty: 10 0RF No Action Dupixent Pen 300 mg/2 mL pen injector 300 mg SUBCUT Patient Comments: [NO ORIGINAL SIG] amlodipine 5 mg tablet 5 mg PO DAILY Qty: 90 1RF metoprolol tartrate 25 mg tablet 25 mg PO BID Qty: 180 1RF escitalopram oxalate [Lexapro] 5 mg tablet 5 mg PO QDAY Qty: 90 1RF Primary Care Provider: Lubna Dey Referrals: Lubna Dey MD [Primary Care Provider] - Feliciano Lovett DO [Med Staff - Active Staff] - 2 Days Activity Restrictions/Additional Instructions: Please follow-up with the dual rate dealer below for EGD. Please take the omeprazole as prescribed. Take the Zofran every 8 hours as needed for nausea and vomiting. Return to the ED with any worsening abdominal pain, worsening vomiting or fevers. Print Language: Hungarian Disposition Disposition: Home, Self Care Discharge Date/Time: 02/08/25 15:44
--- NOTE | 2025-02-08 13:20 | CT_ITS ---
PROCEDURE: ABDOMEN/PELVIS W IV CONT ONLY 02/08/2025 REASON FOR EXAM: PAIN TECHNIQUE: ABDOMEN/PELVIS W IV CONT ONLY Coronal and Sagittal reconstruction series were provided. CONTRAST: Isovue 370 VOLUME: 100 mL One or more dose reduction techniques were used (e.g., Automated exposure control, adjustment of the mA and/or kV according to patient size, use of iterative reconstruction technique. RADIATION DOSE SUMMARY: CTDlvol: 26.20 mGy DLP: 445.19 mGycm COMPARISON: 10/13/2024 FINDINGS: Lung bases: Chronic interstitial changes in the lung bases with fibrotic scarring and calcified granulomata. Bilateral breast implants intact. Liver: Normal size. No suspicious mass. Gallbladder: Unremarkable Spleen: Normal size. Pancreas: Normal size without evidence of mass surrounding inflammation or ductal dilation. Adrenals: Unremarkable Kidneys: No obstructive uropathy, or suspicious solid renal lesion. There are simple cortical cysts in both kidneys, no specific follow-up needed. Bladder: Incompletely distended but otherwise unremarkable Reproductive Organs: Surgically absent Bowel: there are abnormal bowel loops in the mid abdomen with submucosal thickening and edema noted in the gastric antrum and pyloric channel as well as in the duodenum and proximal jejunum with diffuse induration of the mesenteric fat consistent with acute gastritis, duodenitis and jejunitis. No perforation or abscess is noted. There are associated subcentimeter in short axis dimension likely reactive lymph nodes. Retained stool noted in the colon, evidence of sigmoid diverticulosis without CT evidence of acute diverticulitis. However, there is nonspecific thickening of the sigmoid and underlying lesion can not be excluded. Appendix: Evidence of previous appendectomy. Lymph nodes: No suspicious enlarged mesenteric or retroperitoneal lymph nodes Vasculature: Dense calcifications noted in the abdominal aorta with mild aneurysmal dilatation to 3 cm. There is atherosclerotic disease and narrowing of the aorta by a proximally 20%. Peritoneum / Retroperitoneum: No free air Bones: Degenerative bony changes CT/Abdomen/Pelvis W IV Cont ONLY IMPRESSION: Acute inflammatory process involving the gastric antrum, pyloric channel, duode num and proximal jejunum consistent with a combination of gastritis, duodenitis and jejunitis. No mass lesion is noted bu t there is diffuse inflammatory stranding of the mesenteric fat and subcentimeter in short axis dimension likely associated reac tive lymph nodes. No suspicious solid organ abnormalities, simple renal cysts, no specific follow -up needed. Colonic diverticulosis Dense atherosclerotic calcifications in the aorta with mural thrombus and narro wing of the aorta by a proximally 20%. There is borderline aneurysmal dilatation at 3 cm Reading Location: [id number]
[2025-02-08] MEDS: 0.9% Normal Saline (1000mL) 1,000 ML 1000 ML IV (13:31)
--- OUTSIDE RECORDS SUMMARY | 2025-02-08 13:38 | XMS RPT_ITS | CCD ---
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 Jannet Dey Primary Care Provider Dr. Jannet Dey Referring Provider [phone] Christina MIGUEL, PA Yang Martinez Attending Provider Munir MIGUEL PA Isrrael Attending Provider Dr. Jannet Dey Primary Care Provider Dr. Jannet Dey Referring Provider Munir MIGUEL PA Isrrael Attending Provider [phone] Dr. Jannet Dey Attending Provider Julieth VALDES, Venkat Liz Primary Care Provider Jannet Dey MD Primary Care Provider Ilia Odom MD Unavailable Jannet Dey MD Primary Care Provider Dr. Jannet Dey MD Primary Care Provider Dr. Jannet Dey MD Attending Provider Dr. Jannet Dey MD Referring Provider Dr. Ilia Odom MD Attending Provider Dr. Ilia Odom MD Referring Provider Dr. Donovan Vora DO Emergency Provider Dr. Yang Smiley MD Attending Provider Schwiger DO, Dr. Donovan Emergency Provider Sherice VALDES, Dr. Yang Jacobo Attending Provider Sherice VALDES, Dr. Yang Jacobo Other Provider Sherice VALDES, Dr. Yang Jacobo Admit Provider Tiburcio VALDES, Dr. Calvo Primary Care Provider Tiburcio VALDES, Dr. Calvo Attending Provider Barbara MCDANIEL, Dr. Johnston Emergency Provider Roberto MCDANIEL, Dr. Menchaca Admit Provider Roberto MCDANIEL, Dr. Menchaca Attending Provider Roberto MCDANIEL, Dr. Menchaca Other Provider Holden VALDES, Dr. Maxwell Other Provider Krystal VALDES, Dr. Duncan Other Provider Dong VALDES, Dr. Haider Other Provider Lucas MCDANIEL, Dr. Cody Other Provider Kadeem VALDES, Dr. Anshul Nelson Other Provider Ernie VALDES, Dr. Li Other Provider Allie VALDES, Dr. Quinones Other Provider Juanis VALDES, Dr. Matos Other Provider Eliazar VALDES, Dr. Lynn Other Provider [phone] Dr. Satya Rocha MD Other Provider [phone] Darnell VALDES, Dr. Johnston Other Provider [phone] Giovanny VALDES, Dr. Meneses Other Provider Gala VALDES, Dr. Pool [facility] jo[facility] Garrison MD, Dr. Eaton Other Provider Serenity VALDES, Dr. Rodriguez Other Provider Velvet VALDES, Dr. De La Cruz Other Provider Ky VALDES, Dr. Santamaria Other Provider Starr MCDANIEL, Dr. Sheets Other Provider Beatrice VALDES, Dr. Smith Other Provider [phone] Tanja VALDES, Dr. Lam Other Provider Tanesha MCDANIEL, Dr. Blandon Other Provider Balbir VALDES, Dr. Newman Other Provider Fortunato VALDES, Dr. Howard Other Provider Ben MCDANIEL, Dr. Ochoa Attending Provider Ludy VALDES, Dr. Neisha Leal Other Provider Arash VALDES, Dr. Bell Attending Provider Ludy VALDES, Dr. Neisha Leal Attending Provider Ben MCDANIEL, Dr. Ochoa Other Provider TAYLER, YOBANI Referring Unavailable TIBURCIO, JANNET M Primary Care Unavailable TAYLER, YOBANI Attending Unavailable USHA PEREIRA Referring Unavailable TIBURCIO, JANNET M Primary Care Unavailable TAYLER, YOBANI Attending Unavailable TIBURCIO, JANNET M Primary Care Unavailable TAYLER, YOBANI Referring Unavailable TIBURCIO, JANNET M Primary Care Unavailable TAYLER, YOBANI Attending Unavailable TAYLER, YOBANI Referring Unavailable TIBURCIO, JANNET M Primary Care Unavailable KAYE CASE Attending Unavailable TAYLER, YOBANI Referring Unavailable TIBURCIO, JANNET M Primary Care Unavailable TAYLER, YOBANI Admitting Unavailable TAYLER, YOBANI Attending Unavailable TIBURCIO, JANNET M Primary Care Unavailable TAYLER, YOBANI Attending Unavailable TAYLER, YOBANI Referring Unavailable TIBURCIO, JANNET M Primary Care Unavailable TAYLER, YOBANI Referring Unavailable TIBURCIO, JANNET M Primary Care Unavailable TAYLER, YOBANI Referring Unavailable TIBURCIO, JANNET M Primary Care Unavailable TAYLER, YOBANI Referring Unavailable TIBURCIO, JANNET M Primary Care Unavailable TAYLER, YOBANI Referring Unavailable TIBURCIO, JANNET M Primary Care Unavailable TAYLER, YOBANI Referring Unavailable TIBURCIO, JANNET M Primary Care Unavailable Tiburcio VALDES, Dr. Calvo Primary Care Provider [phone] Tiburcio VALDES, Dr. Calvo Attending Provider Tiburcio VALDES, Dr. Calvo Referring Provider Dr. Gabriela Contreras DO Referring Provider [phone] Isrrael Carpenter Attending Provider Nargis VALDES, Dr. Levi Emergency Provider Jannet Dey Attending Unavailable Tiburcio, Jannet Primary Care Unavailable Tibucrio, Jannet Primary Care Unavailable Ray Antoine Attending Unavailable Tiburcio, Jannet Primary Care Unavailable Wanek, Yang A Admitting Unavailable Wandora Yang A Consulting Unavailable Sherice Yang A Attending Unavailable Gabriela Contreras Attending Unavailable Nikolai Mejia Consulting Unavailable Nikolai Mejia Admitting Unavailable Tiburcio, Jannet Primary Care Unavailable Hans Hatch Consulting Unavailable Dakota Rice Consulting Unavailable Vitaly Umana Consulting Unavailable Escobar Zavala Consulting Unavailable Anshul Quan Consulting Unavailable Guillermo Klein Consulting Unavailable Joni Kelley Consulting Unavailable Shawna Olivarez Consulting UnavailShane Garcia Consulting Unavailable Satya Rocha Consulting Unavailable Preston Patrick Consulting Unavailable Zaira Baltazar Consulting Unavailable Corine Cedeño Consulting Unavailable Uma Garrison Consulting Unavailable Michael Benton Consulting Unavailable Jono Verdin Consulting Unavailable Rosalio Mcpherson Consulting Unavailable Dhesi, Sudeep Consulting Unavailable Luis Barron Consulting Unavailable Genaro Agrawal Consulting Unavailable Barber Almendarez Consulting Unavailable Trent Mcgregor Consulting Unavailable Lee Bucio Consulting Unavailable Neisha [place] Consulting Unavailable Gabriela Contreras Consulting Unavailable Tiburcio, Jannet Primary Care Unavailable Tiburcio, Jannet Attending Unavailable Ilia Odom Attending Unavailable Tiburcio, Jannet Primary Care Unavailable Ilia Odom Referring Unavailable Tiburcio, Jannet Primary Care Unavailable Gurmeet Barillas Attending Unavailable Jannet Dey Attending Unavailable Tiburcio, Jannet Referring Unavailable Tiburcio, Jannet Primary Care Unavailable Tiburcio, Jannet Primary Care Unavailable Gabriela Contreras Attending Unavailable Nikolai Mejia Admitting Unavailable Nikolai Mejia Consulting Unavailable Hans Hatch Consulting Unavailable Dakota Rice Consulting Unavailable Vitaly Umana Consulting Unavailable Escobar Zavala Consulting Unavailable Anshul Quan Consulting Unavailable Guillermo Klein Consulting Unavailable Joni Kelley Consulting Unavailable Shawna Olivarez Consulting UnavailShane Garcia Consulting Unavailable Satya Rocha Consulting Unavailable Preston Patrick Consulting Unavailable Zaira Baltazar Consulting Unavailable Corine Cedeño Consulting Unavailable Uma Garrison Consulting Unavailable Nicole Bentontam Consulting Unavailable Jono Verdin Consulting Unavailable Ky, Rosalio Consulting Unavailable Dhephoebe Sudeep Consulting Unavailable Luis Barron Consulting Unavailable Genaro Agrawal Consulting Unavailable Barber Almendarez Consulting Unavailable Trent Mcgregor Consulting Unavailable Lee Bucio Consulting Unavailable Neisha [place] Consulting Unavailable Yang Smiley Attending Unavailable Yang Smiley Admitting Unavailable Tiburcio, Jannet Primary Care Unavailable Yang Smiley Attending Unavailable Neisha [place] Attending Unavailable Gabriela Contreras Referring Unavailable Nikolai Mejia Attending Unavailable Tiburcio, Jannet Primary Care Unavailable Ray Antoine Attending Unavailable Yang Smiley Consulting Unavailable Tiburcio, Jannet Primary Care Unavailable Yang Smiley Attending Unavailable Tiburcio, Jannet Primary Care Unavailable Isrrael Carpenter Attending Unavailable Jannet Dey Referring Unavailable Tiburcio, Jannet Primary Care Unavailable Jannet Dye Attending Unavailable Tiburcio, Jannet Primary Care Unavailable TiburcioJannet chairez Attending Unavailable TiburcioJannet chairez Attending Unavailable Tiburcio, Jannet Primary Care Unavailable Tiburcio, Jannet Primary Care Unavailable TiburcioJannet Attending Unavailable TiburcioJannet Attending Unavailable Tiburcio, Jannet Referring Unavailable Tiburcio, Jannet Primary Care Unavailable Tiburcio, Jannet Primary Care Unavailable TiburcioJannet ritter Attending Unavailable Allergies Allergy Classification Reported Allergen(s) Allergy Type Date of Onset Reaction(s) Facility (8 sources) Nonsteroidal Anti-inflammatory Compounds Propensity to adverse reactions 3 Nausea [facility] (2 sources) Seasonal Allergies: Uncoded; Translations: [Seasonal Allergies: Uncoded] Propensity to adverse reactions 5 Runny nose [facility] (1 source) NSAIDS (Non-Steroidal Anti-Inflamma Drug allergy (disorder) [facility] Repository Medications Current Medications Medication Drug Class(es) Dates Sig (Normalized) Sig (Original) acetaminophen 325 mg oral tablet (4 sources) Start: 06-03-2024 take 2 tablets by mouth every four hours as needed acetaminophen (TYLENOL) 325 mg tablet Take 2 tablets by mouth every 4 hours as needed for pain. 100 tablet 06/04/2024 4:06 PM EST 06/03/2024 Active amLODIPine 5 mg oral tablet (20 sources) Dihydropyridine Calcium Channel Lilia Start: 10-14-2024 take 1 tablet by mouth once daily Amlodipine 5 mg tablet Active 5 mg PO DAILY October 14, 2024 12:00am Start: 10-31-2021 End: 06-30-2024 take 1 tablet by mouth once daily Amlodipine 10 mg tablet Discontinued 10 mg PO DAILY February 19, 2023 4:35pm November 08, 2023 1:40pm Start: 07-07-2021 End: 10-31-2021 take 2 tablets by mouth once daily Amlodipine 10 mg tablet Discontinued 20 mg PO DAILY July 07, 2021 6:08pm October 31, 2021 11:22am Start: 07-07-2021 End: 10-31-2021 take 20 mg by mouth once daily Amlodipine Discontinued 20 MG PO DAILY 60 July 07, 2021 5:08pm October 31, 2021 10:22am Start: 05-05-2021 End: 07-07-2021 take 1 tablet by mouth once daily Amlodipine 10 mg tablet Discontinued 10 mg PO DAILY May 05, 2021 1:00am July 07, 2021 6:08pm azithromycin 250 mg oral tablet (10 sources) Macrolide Antimicrobial Start: 11-07-2024 take 2 tablets by mouth once daily Azithromycin (Zithromax) 250 mg tablet Active 250 mg PO DAILY 09 26November 07, 2024 12:00am start on day 2 of therapy Start: 02-20-2022 End: 08-01-2022 Azithromycin 250 mg tablet D iscontinued 250 mg PO daily February 20, 2022 12:00am August 01, 2022 11:54am 2 tablets today, then 1 tablet daily on days 2 through 5 docusate sodium 50 mg / sennosides, group home 8.6 mg oral tablet (4 sources) Start: 06-03-2024 take 1 tablet by mouth twice daily in the evening senna-docusate (SENNA-S) 8.6-50 mg per tablet Take 1 tablet by mouth two times a day. 100 tablet 06/04/2024 4:06 PM EST 06/03/2024 Active iv contrast (will be provided with radiology test) (1 source) Start: 10-08-2024 End: 10-09-2024 inject 1 dose intravenously once iv contrast (will be provided with radiology test) Indications: Abdominal aortic aneurysm (AAA) without rupture, unspecified part CTA CHEST (NONGATED) ABD/PEL WO/W IVCON - No IV access, insert saline lock prior to the sedation, infusion, injection for imaging exam. Discontinue saline lock post exam. If Pt. has a central line or IVAD, may access for administration according to line specific nursing protocol. Once exam is complete flush line and de-access according to line specific nursing protocol in the CT contrast administration guidelines link. 1 each 10/08/2024 10/09/2024 Active metoprolol tartrate 25 mg oral tablet (20 sources) beta-Adrenerg ic Lilia Start: 11-07-2024 take 1 tablet by mouth twice daily Metoprolol Tartrate 25 mg Tablet Active 25 mg PO TWICE A DAY November 07, 2024 12:00am Start: 10-14-2024 End: 11-07-2024 Metoprolol Tartrate 25 mg Ta blet Discontinued 12.5 mg PO TWICE A DAY October 14, 2024 12:00am November 07, 2024 12:52pm Start: 10-11-2024 End: 10-14-2024 Metoprolol Tartrate 50 mg ta blet Discontinued PO October 11, 2024 12:00am October 14, 2024 11:22am Start: 07-28-2024 End: 10-11-2024 Metoprolol Tartrate 50 mg ta blet Discontinued 25 mg PO DAILY July 28, 2024 12:18pm October 11, 2024 3:48am Start: 06-04-2024 take 1 tablet by sid th twice daily metoprolol tartrate, short acting, (LOPRESSOR) 50 mg tablet Take 1 tablet by mouth two times a day. HOLD UNTIL SBP > 120 06/04/2024 Active Start: 08-20-2023 metoprolol tar trate, short acting, (LOPRESSOR) 50 mg tablet 08/20/2023 Active Start: 10-31-2021 End: 06-30-2024 take 1 tablet by mouth once daily Metoprolol Tartrate 50 mg tablet Discontinued 50 mg PO DAILY 90 October 17, 2022 12:56pm November 08, 2023 1:40pm Start: 11-17-2020 End: 10-31-2021 take 1 tablet by mouth twice daily Metoprolol Tartrate 50 mg tablet Discontinued 50 mg PO TWICE A DAY 180 August 15, 2021 2:00pm October 31, 2021 11:22am Start: 11-03-2020 End: 11-17-2020 Metoprolol Tartrate 50 mg ta blet Discontinued 25 mg PO TWICE A DAY November 03, 2020 12:00am November 17, 2020 1:24pm Start: 11-03-2020 End: 11-17-2020 take 25 mg by mouth twice daily Metoprolol Tartrate Di scontinued 25 MG PO TWICE A DAY November 02, 2020 11:00pm November 17, 2020 12:24pm Naproxen (15 sources) Nonsteroidal Anti-inflammatory Drug NAPROXEN SODIUM (ALEVE ORAL) Take by mouth as needed. Active NAPROXEN SODIUM (ALEVE ORAL) Take by mouth as needed. 0 Active Comment on above: Take by mouth as nee ded. nystatin 100 unt/mg topical powder (2 sources) Polyene Antifungal Start: 05-05-2024 End: 05-12-2024 nystatin (MYCOSTATIN) powder Apply 1 application to affected area two times a day for 7 days. 15 g 05/05/2024 05/12/2024 Active Completed/Discontinued Medications Medication Drug Class(es) Dates Sig (Normalized) Sig (Original) acetaminophen 325 mg / HYDROcodone bitartrate 5 mg oral tablet (17 sources) Opioid Agonist Start: 08-03-2022 End: 08-10-2022 Hydrocodone-Acetami nophen 5-325 mg tablet Discontinued 1 {tbl} PO Q8H as needed for pain 20 7 August 03, 2022 August 09, 2022 1:00am August 10, 2022 1:04am Start: 08-03-2022 End: 08-10-2022 take 1 tablet by mouth every eight hours Hydrocodone-Acetaminophen Discontinued 1 TABLET PO Q8H 11 01August 03, 2022 August 10, 2022 12:04am Start: 10-13-2020 End: 10-16-2020 Hydrocodone-Acetaminophen 1 TABLET tablet Discontinued 1 {tbl} PO EVERY 6 HOURS NEEDED as needed for Pain 03 27October 13, 2020 October 15, 2020 12:00am October 16, 2020 12:18am Start: 10-13-2020 End: 10-16-2020 take 1 tablet by mouth every six hours as needed Hydrocodone-Acetaminophen Discontinued 1 TABLET PO EVERY 6 HOURS NEEDED 03 27October 13, 2020 October 15, 2020 11:18pm acetaminophen 325 mg / oxyCODONE hydrochloride 5 mg oral tablet (13 sources) Opioid Agonist Start: 09-07-2024 End: 10-11-2024 Oxycodone-Acetaminophen (Percocet) 5-325 mg tablet Discontinued 1 {tbl} PO Q8H as needed for pain 10 September 07, 2024 October 11, 2024 3:48am Start: 10-25-2022 End: 03-06-2023 Oxycodone-Acetaminophen 5-32 5 mg tablet Discontinued 1 {tbl} PO EVERY 6 HOURS NEEDED as needed for Pain 05 27October 25, 2022 March 06, 2023 10:01am Start: 10-25-2022 End: 03-06-2023 take 1 tablet by mouth every six hours as needed Oxycodone-Acetaminophen Discontinued 1 TABLET PO EVERY 6 HOURS NEEDED 05 27October 25, 2022 March 06, 2023 9:01am amoxicillin 875 mg / clavulanate 125 mg oral tablet (2 sources) Penicillin-class Antibacterial Start: 10-14-2024 End: 10-27-2024 Amoxicillin-Pot Clavulanate 875-125 mg tablet Discontinued 1 {tbl} PO TWICE A DAY October 14, 2024 12:00am October 27, 2024 8:31am aspirin 81 mg delayed release oral tablet (20 sources) Platelet Aggregation Inhibitor, Nonsteroidal Anti-inflammatory Drug Start: 07-28-2024 End: 11-07-2024 Aspirin (Adult Low Dose Aspirin) 81 mg tablet,delayed release (DR/EC) Discontinued 81 mg PO daily July 28, 2024 1:00am November 07, 2024 12:52pm Start: 10-31-2021 End: 06-30-2024 take 1 tablet by mouth once daily Aspirin 81 mg tablet,delayed release (DR/EC) Discontinued 81 mg PO DAILY October 31, 2021 12:00am June 30, 2024 1:51pm Comment on above: Take 81 mg by mouth once daily. benzonatate 200 mg oral capsule (7 sources) Non-narcotic Antitussive Start: 03-06-20 End: 11-08-19 take 1 capsule by mouth three times daily as needed for cough Benzonatate 200 mg capsule Discontinued 200 mg PO THREE TIMES A DAY as needed for cough March 06, 2023 12:00am November 08, 2023 1:07pm betamethasone 0.5 mg/ml / clotrimazole 10 mg/ml topical cream (9 sources) Azole Antifungal, Corticosteroid Start: 01-23-20 End: 02-21-20 Clotrimazole-Betame thasone (Lotrisone) 1-0.05 % cream Discontinued 1 NMA TOPICAL TWICE A DAY 90 January 22, 2019 12:00am February 18, 2019 12:00am February 20, 2019 12:06am Start: 01-22-2019 End: 02-20-2019 Clotrimazole-Betamethasone ( Lotrisone) 1-0.05 % cream Discontinued 1 APPLIC TOPICAL TWICE A DAY 90 January 21, 2019 11:00pm February 19, 2019 11:06pm cephalexin 500 mg oral capsule (18 sources) Cephalosporin Antibacterial Start: 10-13-2020 End: 11-02-2020 take 1 capsule by mouth every six hours Cephalexin 500 MG capsule Discontinued 500 mg PO EVERY 6 HOURS October 13, 2020 12:00am November 02, 2020 1:30pm End: 05-05-2024 cephALEXin (KEFLEX) 500 mg c apsule every 12 hours. 05/05/2024 Discontinued Comment on above: q 12 HR. cholecalciferol 0.025 mg oral capsule (9 sources) Vitamin D Start: 08-11-19 22 End: 11-08-19 24 take 1 capsule by mouth once daily Cholecalciferol (Vitamin D3) 25 mcg (1,000 unit) capsule Discontinued 25 ug PO DAILY August 11, 2021 1:00am November 08, 2023 1:07pm dexamethasone 6 mg oral tablet (9 sources) Corticosteroid Start: 02-21-20 22 End: 10-11-19 23 take 1 tablet by mouth once daily Dexamethasone (Decadron) 6 mg tablet Discontinued 6 mg PO DAILY February 20, 2022 12:00am October 10, 2022 12:46pm diazePAM 2 mg oral tablet (9 sources) Benzodiazepine Start: 08-26-19 18 End: 01-23-20 19 take 1 tablet by mouth three times daily as needed for muscle spasms Diazepam 2 MG tablet Discontinued 2 mg PO 3 TIMES DAILY NEEDED as needed for Muscle Spasm August 25, 2017 1:00am January 22, 2019 11:06am fluconazole 100 mg oral tablet (12 sources) Azole Antifungal Start: 10-24-19 End: 11-03-19 25 take 1 tablet by mouth once daily Fluconazole (Diflucan) 100 mg tablet Discontinued 100 mg PO daily 04 03October 23, 2024 12:00am November 01, 2024 12:00am November 02, 2024 12:08am Start: 05-05-2024 End: 05-06-2024 take 1 tablet by mouth once daily fluconazole (DIFLUCAN) 150 mg tablet Take 1 tablet by mouth once daily for 1 dose. 1 tablet 05/05/2024 05/06/2024 Active Start: 01-18-2021 End: 02-01-2021 take 2 tablets by mouth once daily, then take 1 tablet by mouth once daily Fluconazole 100 mg tablet Discontinued 100 mg PO DAILY January 18, 2021 12:00am February 01, 2021 11:35am Take 2 tabs on first day then 1 tab daily until finished. 12 hr guaiFENesin 600 mg extended release oral tablet (7 sources) Start: 03-06-2023 End: 11-08-2023 take 1 tablet by mouth every twelve hours as needed, then take 1 tablet by mouth every twelve hours as needed Guaifenesin (Mucinex) 600 mg tablet extended release 12hr Discontinued 600 mg PO Q12H as needed March 06, 2023 12:00am November 08, 2023 1:06pm hydroCHLOROthiazide 12.5 mg / lisinopril 10 mg oral tablet (20 sources) Thiazide Diuretic, Angiotensin Converting Enzyme Inhibitor Start: 11-03-2020 End: 01-19-2021 Lisinopril-Hydroc hlorothiazide 10-12.5 mg tablet Discontinued 1 {tbl} PO DAILY December 24, 2020 12:52pm January 18, 2021 11:27am Start: 11-03-2020 End: 01-19-2021 take 1 tablet by mouth once daily Lisinopril-Hydrochlorothiazide Discontin ued 1 TABLET PO DAILY December 24, 2020 11:52am January 18, 2021 10:27am lidocaine 0.05 mg/mg medicated patch (9 sources) Antiarrhythmic, Amide Local Anesthetic Start: 08-25-2017 End: 01-22-2019 Lidocaine 1 PATCH patch Discontinued 1 NMA TOPICAL DAILY as needed for Pain August 25, 2017 1:51pm January 22, 2019 11:06am Apply to area of back pain. Do not leave in place for more than 12 hours. Start: 08-25-2017 End: 01-22-2019 Lidocaine Discontinued 1 PAT CH TOPICAL DAILY August 25, 2017 12:51pm January 22, 2019 10:06am Apply to area of back pain. Do not leave in place for more than 12 hours. lisinopril 10 mg oral tablet (20 sources) Angiotensin Converting Enzyme Inhibitor Start: 05-03-2021 End: 08-11-2021 take 2 tablets by mouth once daily Lisinopril 10 mg tablet Discontinued 20 mg PO DAILY May 03, 2021 11:44am August 11, 2021 4:05pm Start: 05-03-2021 End: 08-11-2021 take 20 mg by mouth once daily Lisinopril Discontinued 20 MG PO DAILY May 03, 2021 10:44am August 11, 2021 3:05pm Start: 01-19-2021 End: 05-03-2021 take 1 tablet by mouth once daily Lisinopril 10 mg tablet Discontinued 10 mg PO DAILY April 18, 2021 7:55am May 03, 2021 11:50am Start: 10-18-2020 End: 11-03-2020 take 1 tablet by mouth once daily Lisinopril 10 MG tablet Discontinued 10 mg PO DAILY October 18, 2020 12:00am November 03, 2020 1:07pm methocarbamol 750 mg oral tablet (10 sources) Muscle Relaxant Start: 06-03-2024 End: 06-30-2024 take 1 tablet by mouth three times daily Methocarbamol 750 mg tablet Discontinued 750 mg PO THREE TIMES A DAY June 09, 2024 1:00am June 30, 2024 1:51pm 12 hr orphenadrine citrate 100 mg extended release oral tablet (8 sources) Muscle Relaxant Start: 10-25-2022 End: 03-06-2023 take 1 tablet by mouth twice daily as needed for pain Orphenadrine Citrate 100 mg tablet extended release Discontinued 100 mg PO TWICE A DAY as needed for muscle spasm/pain October 25, 2022 5:33am March 06, 2023 10:01am oxyCODONE hydrochloride 5 mg oral tablet (8 sources) Opioid Agonist Start: 06-09-2024 End: 06-30-2024 take 1 tablet by mouth four times daily as needed Oxycodone 5 mg tablet Discontinued 5 mg PO 4 TIMES DAILY as needed June 09, 2024 1:00am June 30, 2024 1:51pm Start: 06-03-2024 End: 06-11-2024 take 1 tablet by mouth every six hours as needed oxyCODONE IR (ROXICODONE) 5 mg immediate release tablet Indications: Postoperative pain Take 1 tablet by mouth every 6 hours as needed for up to 7 days. 28 tablet 06/03/2024 06/11/2024 Active potassium chloride 20 meq extended release oral tablet (8 sources) Start: 06-30-2024 End: 09-06-2024 take 1 tablet by mouth once daily Potassium Chloride 20 mEq tablet extended release Discontinued 20 meq PO daily June 30, 2024 1:00am September 06, 2024 11:32am Take until finished take 1 tablet by mouth once kassidy y potassium chloride ER (KLOR-CON) 20 mEq tablet Take 20 mEq by mouth once daily. For 20 days stared 07/05/24 Active predniSONE 10 mg oral tablet (20 sources) Start: 10-14-2024 End: 10-27-2024 take 1 tablet by mouth once daily Prednisone 10 mg tablet Discontinued 10 mg PO DAILY October 14, 2024 12:00am October 27, 2024 8:31am Start: 10-14-2024 End: 10-27-2024 Prednisone 10 mg tablet Disc ontinued 0 mg PO DAILY 23 06October 14, 2024 12:00am October 27, 2024 8:31am 40MG DAILY FOR 3 DAYS 30MG DAILY FOR 3 DAYS 20MG DAILY FOR 3 DAYS 10MG DAILY FOR 3 DAYS THEN STOP Please contact the information source for Taper Schedule details. Start: 10-10-2022 End: 10-22-2022 Prednisone 10 mg tablet Disc ontinued 10 mg PO daily 23 06October 10, 2022 12:00am October 21, 2022 12:00am October 22, 2022 12:04am Take 4 tabs once daily days 1-3, 3 tabs once daily days 4-6,2 tabs once daily days 7-9 and 1 tab once daily days 10- Start: 08-01-2022 End: 08-11-2022 take 4 tablets by mouth once daily, then take 1-3 tablets by mouth once daily, then take 4-6 tablets by mouth once daily, then take 7-9 tablets by mouth once daily Prednisone 10 mg tablet Discontinued 10 mg PO daily 18 04August 01, 2022 1:00am August 10, 2022 1:00am August 11, 2022 1:05am Take 4 tabs once daily days 1-3, 3 tabs once daily days 4-6, 2 tabs once daily days 7-9 and 1 tab once day 10. tamsulosin hydrochloride 0.4 mg oral capsule (10 sources) alpha-Adrenergic Lilia Start: 06-05-2024 End: 07-05-2024 take 1 capsule by mouth once daily Tamsulosin 0.4 mg capsule Discontinued 0.4 mg PO daily June 09, 2024 1:00am June 30, 2024 1:51pm terbinafine hydrochloride 10 mg/ml topical cream (9 sources) Allylamine Antifungal Start: 01-18-2021 End: 02-01-2021 Terbinafine Hcl 1 % cream Discontinued 1 NMA TOPICAL TWICE A DAY January 18, 2021 12:00am February 01, 2021 11:35am 14 DAYS TO THE AFFECTED AREAS ON LEGS. traZODone hydrochloride 100 mg oral tablet (13 sources) Serotonin Reuptake Inhibitor Start: 05-01-2024 End: 06-30-2024 take 1-0.5 tablets by mouth once daily as needed for sleep Trazodone 100 mg tablet Discontinued 0 PO AT BEDTIME as needed for insomnia May 01, 2024 1:00am June 30, 2024 1:51pm Take one half to one tab nightly for sleep. orally at bedtime PRN; triamcinolone acetonide 1 mg/ml topical cream (6 sources) Corticosteroid Start: 05-01-2024 End: 06-30-2024 Triamcinolone Acetonide 0.1 % cream Discontinued 1 NMA TOPICAL TWICE A DAY 453.6 May 01, 2024 1:00am June 30, 2024 1:51pm Apply to affected areas. valACYclovir 1000 mg oral tablet (8 sources) Herpesvirus Nucleoside Analog DNA Polymerase Inhibitor, Herpes Simplex Virus Nucleoside Analog DNA Polymerase Inhibitor, Herpes Zoster Virus Nucleoside Analog DNA Polymerase Inhibitor Start: 08-01-2022 End: 08-11-2022 Valacyclovir 1 gram tablet Discontinued 1000 mg PO THREE TIMES A DAY 30 August 01, 2022 1:00am August 10, 2022 1:00am August 11, 2022 1:05am Start: 08-01-2022 End: 08-11-2022 take 1000 mg by mouth three times daily Valacyclovir Discontinued 1000 MG PO THREE TIMES A DAY 30 August 01, 2022 12:00am August 11, 2022 12:05am Problems Active Problems Problem Classification Problem Date Documented Date Episodic/Chronic Abdominal pain (6 sources) Right lower quadrant pain; Translations: [Right lower quadrant pain] Onset: 09-19-2024 10-13-2024 Episodic Acute and unspecified renal failure (5 sources) Acute renal failure syndrome; Translations: [Acute kidney failure, unspecified] Onset: 10-21-2024 10-13-2024 Episodic Acute bronchitis (7 sources) Acute bronchitis; Translations: [Acute bronchitis, unspecified] 03-06-2023 Episodic Alcohol-related disorders (6 sources) Alcohol abuse; Translations: [Alcohol abuse, uncomplicated] Onset: 05-27-2024 05-05-2024 Chronic Allergic reactions (9 sources) Inflammatory dermatosis; Translations: [Irritant contact dermatitis, unspecified cause] 10-10-2022 Episodic Anxiety disorders (6 sources) Chronic anxiety; Translations: [Anxiety disorder, unspecified] 05-01-2024 Chronic Aortic; peripheral; and visceral artery aneurysms (20 sources) Abdominal aortic aneurysm; Translations: [Abdominal aortic aneurysm (AAA)] Onset: 10-03-2023 11-02-2020 Chronic Appendicitis and other appendiceal conditions (17 sources) Acute appendicitis; Translations: [Unspecified acute appendicitis] Onset: 09-19-2024 09-06-2024 Episodic Cardiac dysrhythmias (5 sources) Bradycardia; Translations: [Bradycardia, unspecified] Onset: 10-21-2024 10-13-2024 Episodic Chronic obstructive pulmonary disease and bronchiectasis (8 sources) Acute exacerbation of chronic obstructive airways disease; Translations: [Chronic obstructive pulmonary disease with (acute) exacerbation] Onset: 10-21-2024 10-11-2024 Chronic Coagulation and hemorrhagic disorders (8 sources) Blood coagulation disorder; Translations: [Coagulation defect, unspecified] Onset: 05-27-2024 Resolved: 06-04-2024 05-28-2024 Chronic Complications of surgical procedures or medical care (15 sources) Postoperative retention of urine; Translations: [Other postprocedural complications and disorders of genitourinary system] 06-06-2024 Episodic Deficiency and other anemia (20 sources) Increased hemoglobin; Translations: [Other hemoglobinopathies] Onset: 10-03-2023 11-03-2020 Chronic Deficiency and other anemia (4 sources) Anemia; Translations: [Anemia, unspecified] 10-13-2024 Episodic Deficiency and other anemia (1 source) Anemia, unspecified; Translations: [Anemia, unspecified] Onset: 10-21-2024 Episodic Diseases of white blood cells (9 sources) Leukocytosis; Translations: [Elevated white blood cell count, unspecified] Onset: 05-28-2024 Resolved: 06-04-2024 06-04-2024 Chronic Essential hypertension (20 sources) Hypertensive disorder; Translations: [Essential (primary) hypertension] Onset: 05-27-2024 11-03-2020 Chronic Fluid and electrolyte disorders (17 sources) Hypokalemia; Translations: [Hypokalemia] Onset: 05-27-2024 11-03-2020 Episodic Genitourinary symptoms and ill-defined conditions (8 sources) Retention of urine; Translations: [Retention of urine, unspecified] Onset: 06-04-2024 06-04-2024 Episodic Headache; including migraine (8 sources) Headache; Translations: [Headache] 10-25-2022 Episodic Immunizations and screening for infectious disease (10 sources) Contact with and (suspected) exposure to other viral communicable diseases; Translations: [Contact with or suspected exposure to other viral communicable disease] Episodic Miscellaneous mental health disorders (6 sources) Insomnia; Translations: [Other insomnia not due to a substance or known physiological condition] 05-01-2024 Chronic Mood disorders (5 sources) Depressive disorder; Translations: [Depression] Onset: 05-27-2024 06-04-2024 Chronic Mycoses (11 sources) Tinea corporis; Translations: [Tinea corporis] 01-22-2019 Episodic Nausea and vomiting (1 source) Nausea with vomiting, unspecified; Translations: [Nausea with vomiting, unspecified] Onset: 10-21-2024 Episodic Nonmalignant breast conditions (9 sources) Breast lump; Translations: [Unspecified lump in unspecified breast] 11-02-2020 Episodic Nutritional deficiencies (9 sources) Vitamin D deficiency; Translations: [Vitamin D deficiency, unspecified] 10-31-2021 Chronic Occlusion or stenosis of precerebral arteries (1 source) Occlusion and stenosis of bilateral carotid arteries; Translations: [Occlusion and stenosis of bilateral carotid arteries] Onset: 09-12-2024 Chronic Other aftercare (2 sources) Long-term current use of aspirin; Translations: [MCFP (current) use of aspirin] 05-05-2024 Episodic Other aftercare (1 source) Wound ; Translations: [Encounter for other specified surgical aftercare] 07-09-2024 Episodic Other circulatory disease (3 sources) History of thoracoabdominal aortic aneurysm; Translations: [Personal history of other diseases of the circulatory system] 10-03-2023 Episodic Other ear and sense organ disorders (9 sources) Hearing disorder; Translations: [Unspecified hearing loss, unspecified ear] 11-02-2020 Chronic Other hematologic conditions (9 sources) MCV - raised; Translations: [Other abnormality of red blood cells] 11-03-2020 Episodic Other lower respiratory disease (4 sources) Hypoxia; Translations: [Hypoxemia] 10-11-2024 Episodic Other lower respiratory disease (1 source) History of chronic obstructive airway disease; Translations: [Personal history of other diseases of the respiratory system] 11-07-2024 Episodic Other lower respiratory disease (2 sources) Dyspnea; Translations: [Shortness of breath] 10-23-2024 Episodic Other lower respiratory disease (1 source) Hypoxemia; Translations: [Hypoxemia] Onset: 10-21-2024 Episodic Other screening for suspected conditions (not mental disorders or infectious disease) (17 sources) Serum creatinine raised; Translations: [Other specified abnormal findings of blood chemistry] Onset: 05-05-2024 02-01-2021 Episodic Other skin disorders (10 sources) Eruption; Translations: [Rash and other nonspecific skin eruption] 01-18-2021 Episodic Pneumonia (except that caused by tuberculosis or sexually transmitted disease) (17 sources) Right upper zone pneumonia; Translations: [Pneumonia, unspecified organism] Onset: 10-21-2024 10-11-2024 Episodic Residual codes; unclassified (1 source) Tobacco user; Translations: [Tobacco use] 05-05-2024 Episodic Residual codes; unclassified (18 sources) History of repair of aneurysm of abdominal aorta; Translations: [Other specified postprocedural states] 06-30-2024 Episodic Comment on above: [facility], [facility], [facility] 2023. Respiratory failure; insufficiency; arrest (adult) (4 sources) Ventilator finding; Translations: [Dependence on respirator [ventilator] status] Onset: 05-27-2024 05-28-2024 Chronic Respiratory failure; insufficiency; arrest (adult) (6 sources) Acute respiratory failure; Translations: [Acute respiratory failure with hypoxia] Onset: 10-21-2024 10-11-2024 Episodic Spondylosis; intervertebral disc disorders; other back problems (16 sources) Neck pain; Translations: [Cervicalgia] Onset: 11-12-2024 10-25-2022 Episodic Substance-related disorders (5 sources) Smoker; Translations: [Nicotine dependence, unspecified, uncomplicated] Onset: 05-27-2024 06-04-2024 Chronic Thyroid disorders (9 sources) Goiter; Translations: [Nontoxic goiter, unspecified] 11-03-2020 Chronic Unclassified (2 sources) Call to set up an appointment to be seen for your lungs at earliest available appointment Unclassified (1 source) Abdominal aortic aneurysm (AAA) without rupture, unspecified part; Translations: [Abdominal aortic aneurysm (AAA) without rupture, unspecified part] Onset: 06-04-2024 Unclassified (1 source) 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); Translations: [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)] Onset: 06-04-2024 Unclassified (1 source) Acidosis, unspecified; Translations: [Acidosis, unspecified] Onset: 10-21-2024 Urinary tract infections (6 sources) Urinary tract infectious disease; Translations: [Urinary tract infection, site not specified] 09-06-2024 Episodic Viral infection (20 sources) Disease caused by 2019-nCoV; Translations: [COVID-19] Episodic Past or Other Problems Problem Classification Problem Date Documented Date Episodic/Chronic Acute posthemorrhagic anemia (4 sources) Acute posthemorrhagic anemia; Translations: [Acute posthemorrhagic anemia] Onset: 05-27-2024 05-28-2024 Episodic Diabetes mellitus without complication (4 sources) Metabolic stress hyperglycemia; Translations: [Hyperglycemia, unspecified] Onset: 05-27-2024 Resolved: 06-04-2024 06-04-2024 Episodic Other circulatory disease (1 source) Personal history of other diseases of the circulatory system; Translations: [History of thoracoabdominal aortic aneurysm (TAAA)] Onset: 04-03-2024 Episodic Other nervous system disorders (4 sources) Postoperative pain ; Translations: [Other acute postprocedural pain] Onset: 05-27-2024 06-04-2024 Episodic Other nervous system disorders (1 source) Other acute postprocedural pain; Translations: [Postoperative pain] Onset: 06-04-2024 Episodic Pleurisy; pneumothorax; pulmonary collapse (20 sources) Atelectasis; Translations: [Atelectasis] Onset: 05-28-2024 06-04-2024 Episodic Results Test Name Value Interpretation Reference Range Facility /Aniyah 11-13-2024 MR/PAULA Normal [facility] 12 Lead EKGon 11-07-2024 12 Lead EKG Normal [facility] Absolute lymphocyte countOrd ered By: Shivani Velasco on 11-07-2024 Lymphocytes Auto (Unsp spec) [#/Vol] 1.57 10*3/uL 0.83-4.51 [facility] Absolute neutrophil countOrd ered By: Shivani Velasco on 11-07-2024 Neutrophils (Bld) [#/Vol] 3.4 10*3/uL 2.0-7.7 [facility] Anion gap in Serum or Plasma Ordered By: Shivani Velasco on 11-07-2024 Anion gap [Moles/Vol] 12 mmol/L - [facility] Automated lymphocyte count a s percentage of total leukocytesOrdered By: Shivani Velasco on 11-07-2024 Lymphocytes/100 WBC Auto (Unsp spec) 25.8 % [facility] BUN/creatinine ratioOrdered By: Shivani Velasco on 11-07-2024 Urea nitrogen/Creatinine [Mass ratio] 19.9 mg/mg - [facility] Basic Metabolic Profile (BMP )on 11-07-2024 BUN/CRE 19.9 RATIO Normal - [facility] Comment on above: Performed By: #### L 501.4021, L500.2500, L100.0100 ####[facility] [address] [place], [address] Calcium [Mass/Vol] 9.5 mg/dL Normal 7.6-11.0 [facility] Comment on above: Performed By: #### L 501.4021, L500.2500, L100.0100 ####[facility] [address] [place], [address] Chloride [Moles/Vol] 108 mmol/L Normal 98-108 [facility] Comment on above: Performed By: #### L 501.4021, L500.2500, L100.0100 ####[facility] [address] [place], [address] CO2 [Moles/Vol] 25.0 mmol/L Normal 21.0-32.0 [facility] Comment on above: Performed By: #### L 501.4021, L500.2500, L100.0100 ####[facility] [address] [place], [address] Creatinine [Mass/Vol] 0.84 mg/dL Normal 0.70-1.20 [facility] Comment on above: Performed By: #### L 501.4021, L500.2500, L100.0100 ####[facility] [address] [place], [address] ECRCL 57.51 ml/min Normal 50-250 [facility] Comment on above: Performed By: #### L 501.4021, L500.2500, L100.0100 ####[facility] [address] [place], [address] GAP 12 Normal 5-15 [facility] Comment on above: Performed By: #### L 501.4021, L500.2500, L100.0100 ####[facility] [address] [place], [address] GFR/1.73 sq M.predicted among non-blacks MDRD (S/P/Bld) [Vol rate/Area] 74 mL/min/{1.73_m2} Normal >60 [facility] Comment on above: Result Comment: mL/m in/1.73m2 CKD-EPI Creatinine Equation (2020) Performed By: #### L 501.4021, L500.2500, L100.0100 ####[facility] [address] [place], [address] Glucose [Mass/Vol] 94 mg/dL Normal 70-99 [facility] Comment on above: Performed By: #### L 501.4021, L500.2500, L100.0100 ####[facility] [address] [place], [address] Potassium [Moles/Vol] 3.8 mmol/L Normal 3.3-5.1 [facility] Comment on above: Performed By: #### L 501.4021, L500.2500, L100.0100 ####[facility] [address] [place], [address] Sodium [Moles/Vol] 144 mmol/L Normal 133-145 [facility] Comment on above: Performed By: #### L 501.4021, L500.2500, L100.0100 ####[facility] [address] [place], [address] Urea nitrogen [Mass/Vol] 17 mg/dL Normal 4-19 [facility] Comment on above: Performed By: #### L 501.4021, L500.2500, L100.0100 ####[facility] [address] [place], [address] Basophil percentageOrdered B y: Shivani Velasco on 11-07-2024 Basophils/100 WBC (Bld) 0.7 % 0-1 [facility] CBC W/Diff, Automatedon 10-23 Absolute Lymph 1.57 X10 3/uL Normal 0.83-4.51 [facility] Comment on above: Performed By: #### L 501.4021, L500.2500, L100.0100 ####[facility] [address] [place], [address] Absolute Neut 3.4 X10 3/uL Normal 2.0-7.7 [facility] Comment on above: Performed By: #### L 501.4021, L500.2500, L100.0100 ####[facility] [address] [place], [address] Basophils/100 WBC (Bld) 0.7 % Normal 0-1 [facility] Comment on above: Performed By: #### L 501.4021, L500.2500, L100.0100 ####[facility] [address] [place], [address] Eosinophils/100 WBC (Bld) 9.4 % High 0-5 [facility] Comment on above: Performed By: #### L 501.4021, L500.2500, L100.0100 ####[facility] [address] [place], [address] Erythrocyte distribution width (RBC) [Ratio] 15.5 % High 11.6-14.6 [facility] Comment on above: Performed By: #### L 501.4021, L500.2500, L100.0100 ####[facility] [address] [place], [address] Hematocrit (Bld) [Volume fraction] 35.4 % Low 37-47 [facility] Comment on above: Performed By: #### L 501.4021, L500.2500, L100.0100 ####[facility] [address] [place], [address] Hemoglobin (Bld) [Mass/Vol] 12.0 g/dL Normal 12.0-15.0 [facility] Comment on above: Performed By: #### L 501.4021, L500.2500, L100.0100 ####[facility] [address] [place], [address] IG% 0.500 Normal 0.0-0.9 [facility] Comment on above: Result Comment: IG% - Immature Granulocytes (promyelocytes, myelocytes andmetamyelocytes) > 1% indicates that a LEFT SHIFT is Present. Performed By: #### L 501.4021, L500.2500, L100.0100 ####[facility] [address] [place], [address] Lymphocytes/100 WBC (Bld) 25.8 % Normal 19-41 [facility] Comment on above: Performed By: #### L 501.4021, L500.2500, L100.0100 ####[facility] [address] [place], [address] MCH (RBC) [Entitic mass] 31.1 pg Normal 27.0-32.0 [facility] Comment on above: Performed By: #### L 501.4021, L500.2500, L100.0100 ####[facility] [address] [place], [address] MCHC (RBC) [Mass/Vol] 33.9 g/dL Normal 32-36 [facility] Comment on above: Performed By: #### L 501.4021, L500.2500, L100.0100 ####[facility] [address] [place], [address] MCV (RBC) [Entitic vol] 91.7 fL Normal 81-99 [facility] Comment on above: Performed By: #### L 501.4021, L500.2500, L100.0100 ####[facility] [address] [place], [address] Monocytes/100 WBC (Bld) 7.2 % Normal 0-10 [facility] Comment on above: Performed By: #### L 501.4021, L500.2500, L100.0100 ####[facility] [address] [place], [address] Neutrophils/100 WBC (Bld) 56.4 % Normal 47-70 [facility] Comment on above: Performed By: #### L 501.4021, L500.2500, L100.0100 ####[facility] [address] [place], [address] Nucleated RBC (Bld) [#/Vol] 0 10*3/uL Normal 0-5 [facility] Comment on above: Performed By: #### L 501.4021, L500.2500, L100.0100 ####[facility] [address] [place], [address] Platelet mean volume (Bld) [Entitic vol] 10.1 fL Normal 6.2-12.0 [facility] Comment on above: Performed By: #### L 501.4021, L500.2500, L100.0100 ####[facility] [address] [place], [address] Platelets (Bld) [#/Vol] 192 10*3/uL Normal 150-450 [facility] Comment on above: Performed By: #### L 501.4021, L500.2500, L100.0100 ####[facility] [address] [place], [address] RBC (Bld) [#/Vol] 3.86 10*6/uL Low 4.2-5.4 [facility] Comment on above: Performed By: #### L 501.4021, L500.2500, L100.0100 ####[facility] [address] [place], [address] RDW SD 51.8 fl High 35.1-43.9 [facility] Comment on above: Performed By: #### L 501.4021, L500.2500, L100.0100 ####[facility] [address] [place], [address] WBC (Bld) [#/Vol] 6.1 10*3/uL Normal 4.4-11.0 [facility] Comment on above: Performed By: #### L 501.4021, L500.2500, L100.0100 ####[facility] [address] [place], [address] Carbon dioxide, total [Moles /volume] in Central venous bloodOrdered By: Shivani Velasco on 11-07-2024 CO2 [Moles/Vol] 25.0 mmol/L 21.0-32.0 [facility] Chest PA and Lateralon 11-07 Chest PA and Lateral Normal [facility] Chloride assayOrdered By: Rukhsana Velasco on 11-07-2024 Chloride [Moles/Vol] 108 mmol/L 98-108 [facility] Emergency Department Summary on 11-07-2024 Emergency Department Summary Normal [facility] Eosinophil percentageOrdered By: Shivani Velasco on 11-07-2024 Eosinophils/100 WBC (Bld) 9.4 % High 0-5 [facility] Erythrocyte distribution wid th ratioOrdered By: Shivani Velasco on 11-07-2024 Erythrocyte distribution width (RBC) [Ratio] 15.5 % High 11.6-14.6 [facility] Erythrocyte distribution wid th standard deviationOrdered By: Shivani Velasco on 11-07-2024 Erythrocyte distribution width (RBC) [Ratio] 51.8 fl High 35.1-43.9 [facility] Glomerular filtration rate ( GFR) estimation/1.73 sq m using serum, plasma, or whole bOrdered By: Shivani Velasco on 11-07-2024 GFR/1.73 sq M.predicted among non-blacks MDRD (S/P/Bld) [Vol rate/Area] 74 mL/min/{1.73_m2} >60 [facility] Comment on above: mL/min/1.73m2 CKD-EP I Creatinine Equation (2020) Hematocrit Auto (Bld) [Volum e fraction]Ordered By: Shivani Velasco on 11-07-2024 Hematocrit (Bld) [Volume fraction] 35.4 % Low 37-47 [facility] Hemoglobin measurementOrdere d By: Shivani Velasco on 11-07-2024 Hemoglobin (Bld) [Mass/Vol] 12.0 g/dL 12.0-15.0 [facility] Immature granulocytes/100 WB C Auto (Bld)Ordered By: Shivani Velasco on 11-07-2024 Immature granulocytes/100 WBC (Bld) 0.500 % 0.0-0.9 [facility] Comment on above: IG% - Immature Granu locytes (promyelocytes, myelocytes and metamyelocytes) > 1% indicates that a LEFT SHIFT is Present. L501.4021on 11-07-2024 Trop T High Sen 18 ng/L High <=14 [facility] Comment on above: Performed By: #### L 501.4021, L500.2500, L100.0100 ####[facility] [address] [place], [address] MCV (mean corpuscular volume ) determinationOrdered By: Shivani Velasco on 11-07-2024 MCV (RBC) [Entitic vol] 91.7 fL 81-99 [facility] Mean corpuscular hemoglobin (MCH) determinationOrdered By: Shivani Velasco on 11-07-2024 MCH (RBC) [Entitic mass] 31.1 pg 27.0-32.0 [facility] Mean corpuscular hemoglobin concentration (MCHC) determinationOrdered By: Shivani Velasco on 11-07-2024 MCHC (RBC) [Mass/Vol] 33.9 g/dL 32-36 [facility] Mean platelet volume determi nationOrdered By: Shivani Velasco on 11-07-2024 Platelet mean volume (Bld) [Entitic vol] 10.1 fL 6.2-12.0 [facility] Monocyte percentageOrdered B y: Shivani Velasco on 11-07-2024 Monocytes/100 WBC (Bld) 7.2 % 0-10 [facility] Neutrophil percentageOrdered By: Shivani Velasco on 11-07-2024 Neutrophils/100 WBC (Bld) 56.4 % 47-70 [facility] Nucleated red blood cell per centageOrdered By: Shivani Velasco on 11-07-2024 Nucleated RBC/100 WBC (Bld) [Ratio] 0 % 0-5 [facility] Platelet countOrdered By: Rukhsana Velasco on 11-07-2024 Platelets (Bld) [#/Vol] 192 10*3/uL 150-450 [facility] Potassium measurement (mass/ volume)Ordered By: Shivani Velasco on 11-07-2024 Potassium (Unsp spec) [Mass/Vol] 3.8 mmol/L 3.3-5.1 [facility] RBC Auto (Bld) [#/Vol]Ordere d By: Shivani Velasco on 11-07-2024 RBC (Bld) [#/Vol] 3.86 10*6/uL Low 4.2-5.4 [facility] Serum creatinine measurement (mass/volume)Ordered By: Shivani Velasco on 11-07-2024 Creatinine [Mass/Vol] 0.84 mg/dL 0.70-1.20 [facility] Serum glucose measurement (m ass/volume)Ordered By: Shivani Velasco on 11-07-2024 Glucose [Mass/Vol] 94 mg/dL 70-99 [facility] Serum or plasma calcium tommy urement (mass/volume)Ordered By: Shivani Velasco on 11-07-2024 Calcium [Mass/Vol] 9.5 mg/dL 7.6-11.0 [facility] Serum or plasma urea nitroge n measurement (mass/volume)Ordered By: Shivani Velasco on 11-07-2024 Urea nitrogen [Mass/Vol] 17 mg/dL 4-19 [facility] Sodium levelOrdered By: Shivani Velasco on 11-07-2024 Sodium [Moles/Vol] 144 mmol/L 133-145 [facility] Troponin T.cardiac [Mass/vol ume] in Serum or Plasma by High sensitivity methodOrdered By: Shivani Velasco on 11-07-2024 Troponin T.cardiac High sensitivity method [Mass/Vol] 18 ng/L High <14 [facility] White blood cell (WBC) count Ordered By: Shivani Velasco on 11-07-2024 WBC (Bld) [#/Vol] 6.1 10*3/uL 4.4-11.0 [facility] Laboratory - Chemistry and C hemistry - challengeOrdered By: Jannet Dey on 10-27-2024 Bilirubin Ql (U) Negative [facility] Glucose Ql (U) Negative [facility] Ketones Ql (U) Negative [facility] pH (U) 7.0 [pH] [facility] Specific gravity (U) [Rel density] 1.015 [facility] Urobilinogen (U) [Mass/Vol] 0.3960062 mg/dL [facility] Laboratory - Hematology and Cell countsOrdered By: Jannet Dey on 10-27-2024 Hemoglobin Ql (U) Negative [facility] Laboratory - Specimen inform ationOrdered By: Jannet Dey on 10-27-2024 Clarity (U) Clear [facility] Color (U) YELLOW [facility] - UrinalysisOrder ed By: Jannet Dey on 10-27-2024 Nitrite Ql (U) Negative [facility] Protein Ql (U) Negative [facility] MR/BMS.IMBon 10-27-2024 MR/BMS.IMB Normal [facility] No Panel InformationOrdered By: Jannet Dey on 10-27-2024 Urine Leukocytes Negatve [facility] Urine Non-Hemolyzed Blood Negative [facility] Chest PA and Lateralon 10-23 Chest PA and Lateral Normal [facility] No Panel InformationOrdered By: Isrrael Amaral on 10-23-2024 Influenza Types A,B Rapid (Clinic) Negative [facility] POC SARS CoV-2 Antigen Negative [facility] Visit Reporton 0 10-23-2024 Urgent Care Visit Report Normal [facility] Culture, Blood (WB)on 2024 [facility] Blood cultures x2, f rom two different sites No growth in 5 days. Normal [facility] Comment on above: Performed By: #### L 500.2500, L300.3900, L100.0100, L501.5200, M200.1000, L300.4310, L503.6005 ####[facility] [facility] [address] [place], [address] Absolute lymphocyte countOrd ered By: Gabriela Contreras on 10-14-2024 Lymphocytes Auto (Unsp spec) [#/Vol] 0.70 10*3/uL Low 0.83-4.51 [facility] Absolute neutrophil countOrd ered By: Gabriela Contreras on 10-14-2024 Neutrophils (Bld) [#/Vol] 8.5 10*3/uL High 2.0-7.7 [facility] Anion gap in Serum or Plasma Ordered By: Gabriela Contreras on 10-14-2024 Anion gap [Moles/Vol] 12 mmol/L 5-15 [facility] Automated lymphocyte count a s percentage of total leukocytesOrdered By: Gabriela Contreras on 10-14-2024 Lymphocytes/100 WBC Auto (Unsp spec) 7.3 % Low 19-41 [facility] BUN/creatinine ratioOrdered By: Gabriela Contreras on 10-14-2024 Urea nitrogen/Creatinine [Mass ratio] 31.3 mg/mg High 10-20 [facility] Basophil percentageOrdered B y: Gabriela Contreras on 10-14-2024 Basophils/100 WBC (Bld) 0.1 % 0-1 [facility] Bilirubin, totalOrdered By: Gabriela Contreras on 10-14-2024 Bilirubin [Mass/Vol] 0.25 mg/dL 0.00-1.30 [facility] CBC W/Diff, Automatedon 09-24 Absolute Lymph 0.70 X10 3/uL Low 0.83-4.51 [facility] Comment on above: Performed By: #### L 100.0100, L500.4050, L501.5200, L501.2300 ####[facility] [address] [place], [address] Absolute Neut 8.5 X10 3/uL High 2.0-7.7 [facility] Comment on above: Performed By: #### L 100.0100, L500.4050, L501.5200, L501.2300 ####[facility] [address] [place], [address] Basophils/100 WBC (Bld) 0.1 % Normal 0-1 [facility] Comment on above: Performed By: #### L 100.0100, L500.4050, L501.5200, L501.2300 ####[facility] [address] [place], [address] Eosinophils/100 WBC (Bld) 0.0 % Normal 0-5 [facility] Comment on above: Performed By: #### L 100.0100, L500.4050, L501.5200, L501.2300 ####[facility] [address] [place], [address] Erythrocyte distribution width (RBC) [Ratio] 16.8 % High 11.6-14.6 [facility] Comment on above: Performed By: #### L 100.0100, L500.4050, L501.5200, L501.2300 ####[facility] [address] [place], [address] Hematocrit (Bld) [Volume fraction] 37.3 % Normal 37-47 [facility] Comment on above: Performed By: #### L 100.0100, L500.4050, L501.5200, L501.2300 ####[facility] [address] [place], [address] Hemoglobin (Bld) [Mass/Vol] 12.2 g/dL Normal 12.0-15.0 [facility] Comment on above: Performed By: #### L 100.0100, L500.4050, L501.5200, L501.2300 ####[facility] [address] [place], [address] IG% 0.400 Normal 0.0-0.9 [facility] Comment on above: Result Comment: IG% - Immature Granulocytes (promyelocytes, myelocytes andmetamyelocytes) > 1% indicates that a LEFT SHIFT is Present. Performed By: #### L 100.0100, L500.4050, L501.5200, L501.2300 ####[facility] [address] [place], [address] Lymphocytes/100 WBC (Bld) 7.3 % Low 19-41 [facility] Comment on above: Performed By: #### L 100.0100, L500.4050, L501.5200, L501.2300 ####[facility] [address] [place], [address] MCH (RBC) [Entitic mass] 31.2 pg Normal 27.0-32.0 [facility] Comment on above: Performed By: #### L 100.0100, L500.4050, L501.5200, L501.2300 ####[facility] [address] [place], [address] MCHC (RBC) [Mass/Vol] 32.7 g/dL Normal 32-36 [facility] Comment on above: Performed By: #### L 100.0100, L500.4050, L501.5200, L501.2300 ####[facility] [address] [place], [address] MCV (RBC) [Entitic vol] 95.4 fL Normal 81-99 [facility] Comment on above: Performed By: #### L 100.0100, L500.4050, L501.5200, L501.2300 ####[facility] [address] [place], [address] Monocytes/100 WBC (Bld) 2.9 % Normal 0-10 [facility] Comment on above: Performed By: #### L 100.0100, L500.4050, L501.5200, L501.2300 ####[facility] [address] [place], [address] Neutrophils/100 WBC (Bld) 89.3 % High 47-70 [facility] Comment on above: Performed By: #### L 100.0100, L500.4050, L501.5200, L501.2300 ####[facility] [address] [place], [address] Nucleated RBC (Bld) [#/Vol] 0 10*3/uL Normal 0-5 [facility] Comment on above: Performed By: #### L 100.0100, L500.4050, L501.5200, L501.2300 ####[facility] [address] [place], [address] Platelet mean volume (Bld) [Entitic vol] 10.8 fL Normal 6.2-12.0 [facility] Comment on above: Performed By: #### L 100.0100, L500.4050, L501.5200, L501.2300 ####[facility] [address] [place], [address] Platelets (Bld) [#/Vol] 183 10*3/uL Normal 150-450 [facility] Comment on above: Performed By: #### L 100.0100, L500.4050, L501.5200, L501.2300 ####[facility] [address] [place], [address] RBC (Bld) [#/Vol] 3.91 10*6/uL Low 4.2-5.4 [facility] Comment on above: Performed By: #### L 100.0100, L500.4050, L501.5200, L501.2300 ####[facility] [address] [place], [address] RDW SD 58.9 fl High 35.1-43.9 [facility] Comment on above: Performed By: #### L 100.0100, L500.4050, L501.5200, L501.2300 ####[facility] [address] [place], [address] WBC (Bld) [#/Vol] 9.6 10*3/uL Normal 4.4-11.0 [facility] Comment on above: Performed By: #### L 100.0100, L500.4050, L501.5200, L501.2300 ####[facility] [address] [place], [address] Carbon dioxide, total [Moles /volume] in Central venous bloodOrdered By: Gabriela Contreras on 10-14-2024 CO2 [Moles/Vol] 24.1 mmol/L 21.0-32.0 [facility] Chloride assayOrdered By: Isaias Contreras on 10-14-2024 Chloride [Moles/Vol] 103 mmol/L 98-108 [facility] Comprehensive Metabolic Prof ilon 10-14-2024 Albumin [Mass/Vol] 3.2 g/dL Low 3.4-4.8 [facility] Comment on above: Performed By: #### L 100.0100, L500.4050, L501.5200, L501.2300 ####[facility] [address] [place], [address] Albumin/Globulin [Mass ratio] 1.2 {ratio} Normal 0.9-2.4 [facility] Comment on above: Performed By: #### L 100.0100, L500.4050, L501.5200, L501.2300 ####[facility] [address] [place], [address] ALK PHOS 66 U/L Normal 35-104 [facility] Comment on above: Performed By: #### L 100.0100, L500.4050, L501.5200, L501.2300 ####[facility] [address] [place], [address] ALT [Catalytic activity/Vol] 6 U/L Normal <=34 [facility] Comment on above: Performed By: #### L 100.0100, L500.4050, L501.5200, L501.2300 ####[facility] [address] [place], [address] AST [Catalytic activity/Vol] 12 U/L Normal <=31 [facility] Comment on above: Performed By: #### L 100.0100, L500.4050, L501.5200, L501.2300 ####[facility] [address] [place], [address] Bilirubin [Mass/Vol] 0.25 mg/dL Normal 0.00-1.30 [facility] Comment on above: Performed By: #### L 100.0100, L500.4050, L501.5200, L501.2300 ####[facility] [address] [place], [address] BUN/CRE 31.3 RATIO High 10-20 [facility] Comment on above: Performed By: #### L 100.0100, L500.4050, L501.5200, L501.2300 ####[facility] [address] [place], [address] Calcium [Mass/Vol] 8.8 mg/dL Normal 7.6-11.0 [facility] Comment on above: Performed By: #### L 100.0100, L500.4050, L501.5200, L501.2300 ####[facility] [address] [place], [address] Chloride [Moles/Vol] 103 mmol/L Normal 98-108 [facility] Comment on above: Performed By: #### L 100.0100, L500.4050, L501.5200, L501.2300 ####[facility] [address] [place], [address] CO2 [Moles/Vol] 24.1 mmol/L Normal 21.0-32.0 [facility] Comment on above: Performed By: #### L 100.0100, L500.4050, L501.5200, L501.2300 ####[facility] [address] [place], [address] Creatinine [Mass/Vol] 0.98 mg/dL Normal 0.70-1.20 [facility] Comment on above: Performed By: #### L 100.0100, L500.4050, L501.5200, L501.2300 ####[facility] [address] [place], [address] ECRCL 49.29 ml/min Low 50-250 [facility] Comment on above: Performed By: #### L 100.0100, L500.4050, L501.5200, L501.2300 ####[facility] [address] [place], [address] GAP 12 Normal 5-15 [facility] Comment on above: Performed By: #### L 100.0100, L500.4050, L501.5200, L501.2300 ####[facility] [address] [place], [address] GFR/1.73 sq M.predicted among non-blacks MDRD (S/P/Bld) [Vol rate/Area] 62 mL/min/{1.73_m2} Normal >60 [facility] Comment on above: Result Comment: mL/m in/1.73m2 CKD-EPI Creatinine Equation (2020) Performed By: #### L 100.0100, L500.4050, L501.5200, L501.2300 ####[facility] [address] [place], [address] Globulin (S) [Mass/Vol] 2.6 g/dL Normal 2.2-4.2 [facility] Comment on above: Performed By: #### L 100.0100, L500.4050, L501.5200, L501.2300 ####[facility] [address] [place], [address] Glucose [Mass/Vol] 111 mg/dL High 70-99 [facility] Comment on above: Performed By: #### L 100.0100, L500.4050, L501.5200, L501.2300 ####[facility] [address] [place], [address] Potassium [Moles/Vol] 3.7 mmol/L Normal 3.3-5.1 [facility] Comment on above: Performed By: #### L 100.0100, L500.4050, L501.5200, L501.2300 ####[facility] [address] [place], [address] Sodium [Moles/Vol] 139 mmol/L Normal 133-145 [facility] Comment on above: Performed By: #### L 100.0100, L500.4050, L501.5200, L501.2300 ####[facility] [address] [place], [address] T PROT 5.8 g/dL Low 5.9-8.4 [facility] Comment on above: Performed By: #### L 100.0100, L500.4050, L501.5200, L501.2300 ####[facility] [address] [place], [address] Urea nitrogen [Mass/Vol] 31 mg/dL High 4-19 [facility] Comment on above: Performed By: #### L 100.0100, L500.4050, L501.5200, L501.2300 ####[facility] [address] [place], [address] Eosinophil percentageOrdered By: Gabriela Contreras on 10-14-2024 Eosinophils/100 WBC (Bld) 0.0 % 0-5 [facility] Erythrocyte distribution wid th (RBC) [Ratio]Ordered By: Gabriela Contreras on 10-14-2024 Erythrocyte distribution width (RBC) [Entitic vol] 58.9 fL High 35.1-43.9 [facility] Erythrocyte distribution wid th ratioOrdered By: Gabriela Contreras on 10-14-2024 Erythrocyte distribution width (RBC) [Ratio] 16.8 % High 11.6-14.6 [facility] Erythrocyte distribution wid th standard deviationOrdered By: Gabriela Contreras on 10-14-2024 Erythrocyte distribution width (RBC) [Ratio] 58.9 fl High 35.1-43.9 [facility] Estimation of creatinine zach aranceOrdered By: Gabriela Contreras on 10-14-2024 Estimated Creatinine Clearance Calc 49.29 ml/min Low 50-250 [facility] GFR/1.73 sq M.predicted kaylan g non-blacks MDRD (S/P/Bld) [Vol rate/Area]Ordered By: Gabriela Contreras on 10-14-2024 Estimated GFR (MDRD) Non-Af Amer 62 >60 [facility] Comment on above: mL/min/1.73m2 CKD-EP I Creatinine Equation (2020) Glomerular filtration rate ( GFR) estimation/1.73 sq m using serum, plasma, or whole bOrdered By: Gabriela Contreras on 10-14-2024 GFR/1.73 sq M.predicted among non-blacks MDRD (S/P/Bld) [Vol rate/Area] 62 mL/min/{1.73_m2} >60 [facility] Comment on above: mL/min/1.73m2 CKD-EP I Creatinine Equation (2020) Hematocrit Auto (Bld) [Volum e fraction]Ordered By: Gabriela Contreras on 10-14-2024 Hematocrit (Bld) [Volume fraction] 37.3 % 37-47 [facility] Hemoglobin measurementOrdere d By: Gabriela Contreras on 10-14-2024 Hemoglobin (Bld) [Mass/Vol] 12.2 g/dL 12.0-15.0 [facility] Immature granulocytes/100 WB C Auto (Bld)Ordered By: Gabriela Contreras on 10-14-2024 Immature granulocytes/100 WBC (Bld) 0.400 % 0.0-0.9 [facility] Comment on above: IG% - Immature Granu locytes (promyelocytes, myelocytes and metamyelocytes) > 1% indicates that a LEFT SHIFT is Present. Laboratory - Chemistry and C hemistry - challengeOrdered By: Gabriela Contreras on 10-14-2024 AST [Catalytic activity/Vol] 12 U/L <32 [facility] Lymphocytes Auto (Unsp spec) [#/Vol]Ordered By: Gabriela Contreras on 10-14-2024 Lymphocytes (Bld) [#/Vol] 0.70 10*3/uL Low 0.83-4.51 [facility] Lymphocytes/100 WBC Auto (Un sp spec)Ordered By: Gabriela Contreras on 10-14-2024 Lymphocytes/100 WBC (Bld) 7.3 % Low 19-41 [facility] MCV (mean corpuscular volume ) determinationOrdered By: Gabriela Contreras on 10-14-2024 MCV (RBC) [Entitic vol] 95.4 fL 81-99 [facility] Magnesiumon 10-14-2024 Magnesium [Mass/Vol] 2.0 mg/dL Normal 1.5-2.2 [facility] Comment on above: Performed By: #### L 100.0100, L500.4050, L501.5200, L501.2300 ####[facility] [address] [place], [place], [id number] Magnesium (Unsp spec) [Mass/ Vol]Ordered By: Gabriela Contreras on 10-14-2024 Magnesium [Mass/Vol] 2.0 mg/dL 1.5-2.2 [facility] Magnesium measurement (mass/ volume)Ordered By: Gabriela Contreras on 10-14-2024 Magnesium (Unsp spec) [Mass/Vol] 2.0 mg/dL 1.5-2.2 [facility] Mean corpuscular hemoglobin (MCH) determinationOrdered By: Gabriela Contreras on 10-14-2024 MCH (RBC) [Entitic mass] 31.2 pg 27.0-32.0 [facility] Mean corpuscular hemoglobin concentration (MCHC) determinationOrdered By: Gabriela Contreras on 10-14-2024 MCHC (RBC) [Mass/Vol] 32.7 g/dL 32-36 [facility] Mean platelet volume determi nationOrdered By: Gabriela Contreras on 10-14-2024 Platelet mean volume (Bld) [Entitic vol] 10.8 fL 6.2-12.0 [facility] Monocyte percentageOrdered B y: Gabriela Cnotreras on 10-14-2024 Monocytes/100 WBC (Bld) 2.9 % 0-10 [facility] Mycoplasma Pneu IgG / IgMon 10-14-2024 M PNEUMONIA IgG 216 U/mL High 0-99 [facility] Comment on above: Result Comment: Nega tive: <100 Indeterminate: 100 - 320 Positive: >320The reference interval established is intended as abaseline only. Values >100 may indicate a recentinfection with Mycoplasma pneumoniae and need to beconfirmed either by a positive IgM result and/or anadditional specimen drawn 2-4 weeks later showing asignificant increase in antibody levels. Performed By: #### L 7000.2400 ####[facility] [address] [place], [address] M PNEUMONIA IgM 949 U/mL High 0-769 [facility] Comment on above: Result Comment: Nega tive <770Clinically significant amount of M. pneumoniae antibodynot detected. Low Positive 770 - 950M. pneumoniae specific IgM presumptively detected. Itis recommended that another sample be collected 1-2weeks later to assure reactivity. Positive >950Highly significant amount of M. pneumoniae specificIgM antibody detected.Performed at: [facility] [id number] Director: Domingo Ramesh PhD, Phone: [phone] Performed By: #### L 7000.2400 ####[facility] [address] [place], [place], [id number]) Neutrophil percentageOrdered By: Gabriela Contreras on 10-14-2024 Neutrophils/100 WBC (Bld) 89.3 % High 47-70 [facility] Nucleated red blood cell per centageOrdered By: Gabriela Contreras on 10-14-2024 Nucleated RBC/100 WBC (Bld) [Ratio] 0 % 0-5 [facility] Phosphoruson 10-14-2024 Phosphate [Mass/Vol] 3.3 mg/dL Normal 2.7-4.5 [facility] Comment on above: Performed By: #### L 100.0100, L500.4050, L501.5200, L501.2300 ####[facility] [address], [address] Platelet countOrdered By: Isaias Contreras on 10-14-2024 Platelets (Bld) [#/Vol] 183 10*3/uL 150-450 [facility] Potassium (Unsp spec) [Mass/ Vol]Ordered By: Gabriela Contreras on 10-14-2024 Potassium [Moles/Vol] 3.7 mmol/L 3.3-5.1 [facility] Potassium measurement (mass/ volume)Ordered By: Gabriela Contreras on 10-14-2024 Potassium (Unsp spec) [Mass/Vol] 3.7 mmol/L 3.3-5.1 [facility] RBC Auto (Bld) [#/Vol]Ordere d By: Gabriela Contreras on 10-14-2024 RBC (Bld) [#/Vol] 3.91 10*6/uL Low 4.2-5.4 [facility] Serum creatinine measurement (mass/volume)Ordered By: Gabriela Contreras on 10-14-2024 Creatinine [Mass/Vol] 0.98 mg/dL 0.70-1.20 [facility] Serum globulin measurementOr dered By: Gabriela Contreras on 10-14-2024 Globulin (S) [Mass/Vol] 2.6 g/dL 2.2-4.2 [facility] Serum glucose measurement (m ass/volume)Ordered By: Gabriela Contreras on 10-14-2024 Glucose [Mass/Vol] 111 mg/dL High 70-99 [facility] Serum or plasma alanine fregoso otransferase (ALT) measurementOrdered By: Gabriela Contreras on 10-14-2024 ALT [Catalytic activity/Vol] 6 U/L <35 [facility] Serum or plasma albumin tommy urement (mass/volume)Ordered By: Gabriela Contreras on 10-14-2024 Albumin [Mass/Vol] 3.2 g/dL Low 3.4-4.8 [facility] Serum or plasma albumin/glob ulin mass ratioOrdered By: Gabriela Contreras on 10-14-2024 Albumin/Globulin [Mass ratio] 1.2 {ratio} 0.9-2.4 [facility] Serum or plasma alkaline luciana sphatase measurementOrdered By: Gabriela Contreras on 10-14-2024 ALP [Catalytic activity/Vol] 66 U/L 35-104 [facility] Serum or plasma calcium tommy urement (mass/volume)Ordered By: Gabriela Contreras on 10-14-2024 Calcium [Mass/Vol] 8.8 mg/dL 7.6-11.0 [facility] Serum or plasma urea nitroge n measurement (mass/volume)Ordered By: Gabriela Contreras on 10-14-2024 Urea nitrogen [Mass/Vol] 31 mg/dL High 4-19 [facility] Serum phosphorus measurement Ordered By: Gabriela Contreras on 10-14-2024 Phosphorus Level 3.3 mg/dL 2.7-4.5 [facility] Sodium levelOrdered By: Erin Contreras on 10-14-2024 Sodium [Moles/Vol] 139 mmol/L 133-145 [facility] Total proteinOrdered By: Germaine Contreras on 10-14-2024 Protein [Mass/Vol] 5.8 g/dL Low 5.9-8.4 [facility] White blood cell (WBC) count Ordered By: Gabriela Contreras on 10-14-2024 WBC (Bld) [#/Vol] 9.6 10*3/uL 4.4-11.0 [facility] Abdomen/Pel W ORAL Cont Only on 10-13-2024 Abdomen/Pel W ORAL Cont Only Normal [facility] Basic Metabolic Profile (BMP )on 10-13-2024 BUN/CRE 29.4 RATIO High 10-20 [facility] Comment on above: Performed By: #### L 100.0100, L500.2500 ####[facility] [address] [facility] [address] Calcium [Mass/Vol] 8.8 mg/dL Normal 7.6-11.0 [facility] Comment on above: Performed By: #### L 100.0100, L500.2500 ####[facility] [address] [facility] [address] Chloride [Moles/Vol] 105 mmol/L Normal 98-108 [facility] Comment on above: Performed By: #### L 100.0100, L500.2500 ####[facility] [address] [place], [address] CO2 [Moles/Vol] 20.9 mmol/L Low 21.0-32.0 [facility] Comment on above: Performed By: #### L 100.0100, L500.2500 ####[facility] [address] [place], [address] Creatinine [Mass/Vol] 1.36 mg/dL High 0.70-1.20 [facility] Comment on above: Performed By: #### L 100.0100, L500.2500 ####[facility] [address] [place], [address] ECRCL 35.52 ml/min Low 50-250 [facility] Comment on above: Performed By: #### L 100.0100, L500.2500 ####[facility] [address] [place], [address] GAP 13 Normal 5-15 [facility] Comment on above: Performed By: #### L 100.0100, L500.2500 ####[facility] [address] [place], [address] GFR/1.73 sq M.predicted among non-blacks MDRD (S/P/Bld) [Vol rate/Area] 42 mL/min/{1.73_m2} Low >60 [facility] Comment on above: Result Comment: mL/m in/1.73m2 CKD-EPI Creatinine Equation (2020) Performed By: #### L 100.0100, L500.2500 ####[facility] [address] [place], [address] Glucose [Mass/Vol] 114 mg/dL High 70-99 [facility] Comment on above: Performed By: #### L 100.0100, L500.2500 ####[facility] [address] [place], [address] Potassium [Moles/Vol] 4.0 mmol/L Normal 3.3-5.1 [facility] Comment on above: Performed By: #### L 100.0100, L500.2500 ####[facility] [address] [place], [address] Sodium [Moles/Vol] 139 mmol/L Normal 133-145 [facility] Comment on above: Performed By: #### L 100.0100, L500.2500 ####[facility] [address] [place], [address] Urea nitrogen [Mass/Vol] 40 mg/dL High 4-19 [facility] Comment on above: Performed By: #### L 100.0100, L500.2500 ####[facility] [address] [place], [address] CBC W/Diff, Automatedon 04- Absolute Lymph 0.62 X10 3/uL Low 0.83-4.51 [facility] Comment on above: Performed By: #### L 100.0100, L500.2500 ####[facility] [address] [place], [address] Absolute Neut 8.9 X10 3/uL High 2.0-7.7 [facility] Comment on above: Performed By: #### L 100.0100, L500.2500 ####[facility] [address] [place], [address] Basophils/100 WBC (Bld) 0.1 % Normal 0-1 [facility] Comment on above: Performed By: #### L 100.0100, L500.2500 ####[facility] [address] [place], [address] Eosinophils/100 WBC (Bld) 0.0 % Normal 0-5 [facility] Comment on above: Performed By: #### L 100.0100, L500.2500 ####[facility] [address] [place], [address] Erythrocyte distribution width (RBC) [Ratio] 17.1 % High 11.6-14.6 [facility] Comment on above: Performed By: #### L 100.0100, L500.2500 ####[facility] [address] [place], [address] Hematocrit (Bld) [Volume fraction] 35.7 % Low 37-47 [facility] Comment on above: Performed By: #### L 100.0100, L500.2500 ####[facility] [address] [place], [address] Hemoglobin (Bld) [Mass/Vol] 11.6 g/dL Low 12.0-15.0 [facility] Comment on above: Performed By: #### L 100.0100, L500.2500 ####[facility] [address] [place], [address] IG% 1.100 High 0.0-0.9 [facility] Comment on above: Result Comment: IG% - Immature Granulocytes (promyelocytes, myelocytes andmetamyelocytes) > 1% indicates that a LEFT SHIFT is Present. Performed By: #### L 100.0100, L500.2500 ####[facility] [address] [place], [address] Lymphocytes/100 WBC (Bld) 6.2 % Low 19-41 [facility] Comment on above: Performed By: #### L 100.0100, L500.2500 ####[facility] [address] [place], [address] MCH (RBC) [Entitic mass] 30.9 pg Normal 27.0-32.0 [facility] Comment on above: Performed By: #### L 100.0100, L500.2500 ####[facility] [address] [place], [address] MCHC (RBC) [Mass/Vol] 32.5 g/dL Normal 32-36 [facility] Comment on above: Performed By: #### L 100.0100, L500.2500 ####[facility] [address] [place], [address] MCV (RBC) [Entitic vol] 95.2 fL Normal 81-99 [facility] Comment on above: Performed By: #### L 100.0100, L500.2500 ####[facility] [address] [place], [address] Monocytes/100 WBC (Bld) 2.9 % Normal 0-10 [facility] Comment on above: Performed By: #### L 100.0100, L500.2500 ####[facility] [address] [place], [address] Neutrophils/100 WBC (Bld) 89.7 % High 47-70 [facility] Comment on above: Performed By: #### L 100.0100, L500.2500 ####[facility] [address] [place], [address] Nucleated RBC (Bld) [#/Vol] 0 10*3/uL Normal 0-5 [facility] Comment on above: Performed By: #### L 100.0100, L500.2500 ####[facility] [address] [place], [address] Platelet mean volume (Bld) [Entitic vol] 10.9 fL Normal 6.2-12.0 [facility] Comment on above: Performed By: #### L 100.0100, L500.2500 ####[facility] [address] [place], [address] Platelets (Bld) [#/Vol] 196 10*3/uL Normal 150-450 [facility] Comment on above: Performed By: #### L 100.0100, L500.2500 ####[facility] [address] [place], [address] RBC (Bld) [#/Vol] 3.75 10*6/uL Low 4.2-5.4 [facility] Comment on above: Performed By: #### L 100.0100, L500.2500 ####[facility] [address] [place], [address] RDW SD 60.1 fl High 35.1-43.9 [facility] Comment on above: Performed By: #### L 100.0100, L500.2500 ####[facility] [address] [place], [address] WBC (Bld) [#/Vol] 10.0 10*3/uL Normal 4.4-11.0 [facility] Comment on above: Performed By: #### L 100.0100, L500.2500 ####[facility] [address] [place], [address] Consultation - Surgicalon Consultation - Surgical Normal [facility] Culture, Blood (WB)on 2024 CUB Blood cultures x2, f rom two different sites No growth in 5 days. Normal [facility] Comment on above: Performed By: #### M 200.1000 ####[facility] [address] [place], [address] Electrocardiogram reportOrde red By: Ray Antoine on 10-13-2024 EKG study [facility] [address] [place] [address] 12 Lead EKG 10/11/24 0526 MR#: [id number] Acct: [id number] Name: CHARLIE ESTRADA Rep #:[id number] : 1950 73 From: Ray Antoine MD Attending Dr: Dr. Gabriela Contreras DO Ketty tatus: ADM IN Ordering Dr: Preston Jimenez DO Date: Location: [facility] Sex: F C Admitted: 10/11/24 Test Reason : SOB Blood Pressure : */* mmHG Vent. Rate : 82 BPM Atrial Rate : 82 BPM P-R Int : 146 ms QRS Dur : 90 ms QT Int : 454 ms P-R-T Axes : 43 -31 49 degrees QTcB Int : 530 ms Normal sinus rhythm Left axis deviation Septal infarct (cited on or before 18-Oct-2020) ST & T wave abnormality, consider anterolateral ischemia Prolonged QT Abnormal ECG Confirmed by RAY ANTOINE MD ([id number]), city editor PORTIA PARK ([id number]) on 10/13/2024 8:31:59 AM Referred By: Confirmed By: RAY ANTOINE MD 10/13/24 0832 Date _ Ray Antoine MD CC: Dr. Gabriela Contreras DO; Dr. Jannet Dey MD; Preston Jimenez DO ~ Signed [facility] Work Phone: Basic Metabolic Profile (BMP )on 10-12-2024 BUN/CRE 26.6 RATIO High 04-13 [facility] Comment on above: Performed By: #### L 100.0500, L500.2500 ####[facility] [address] [place], [address] Calcium [Mass/Vol] 8.5 mg/dL Normal 7.6-11.0 [facility] Comment on above: Performed By: #### L 100.0500, L500.2500 ####[facility] [address] [place], [address] Chloride [Moles/Vol] 105 mmol/L Normal 98-108 [facility] Comment on above: Performed By: #### L 100.0500, L500.2500 ####[facility] [address] [place], [address] CO2 [Moles/Vol] 17.8 mmol/L Low 21.0-32.0 [facility] Comment on above: Performed By: #### L 100.0500, L500.2500 ####[facility] [address] [place], [address] Creatinine [Mass/Vol] 1.31 mg/dL High 0.70-1.20 [facility] Comment on above: Performed By: #### L 100.0500, L500.2500 ####[facility] [address] [place], [address] ECRCL 36.87 ml/min Low 50-250 [facility] Comment on above: Performed By: #### L 100.0500, L500.2500 ####[facility] [address] [place], [address] GAP 14 Normal 5-15 [facility] Comment on above: Performed By: #### L 100.0500, L500.2500 ####[facility] [address] [place], [address] GFR/1.73 sq M.predicted among non-blacks MDRD (S/P/Bld) [Vol rate/Area] 44 mL/min/{1.73_m2} Low >60 [facility] Comment on above: Result Comment: mL/m in/1.73m2 CKD-EPI Creatinine Equation (2020) Performed By: #### L 100.0500, L500.2500 ####[facility] [address] [place], [address] Glucose [Mass/Vol] 188 mg/dL High 70-99 [facility] Comment on above: Performed By: #### L 100.0500, L500.2500 ####[facility] [address] [place], [address] Potassium [Moles/Vol] 3.8 mmol/L Normal 3.3-5.1 [facility] Comment on above: Performed By: #### L 100.0500, L500.2500 ####[facility] [address] [place], [address] Sodium [Moles/Vol] 137 mmol/L Normal 133-145 [facility] Comment on above: Performed By: #### L 100.0500, L500.2500 ####[facility] [address] [place], [address] Urea nitrogen [Mass/Vol] 35 mg/dL High 4-19 [facility] Comment on above: Performed By: #### L 100.0500, L500.2500 ####[facility] [address] [place], [address] CBC-Complete Blood Cnt No Di ffon 10-12-2024 Erythrocyte distribution width (RBC) [Ratio] 17.4 % High 11.6-14.6 [facility] Comment on above: Performed By: #### L 100.0500, L500.2500 ####[facility] [address] [place], [address] Hematocrit (Bld) [Volume fraction] 36.2 % Low 37-47 [facility] Comment on above: Performed By: #### L 100.0500, L500.2500 ####[facility] [address] [place], [address] Hemoglobin (Bld) [Mass/Vol] 11.9 g/dL Low 12.0-15.0 [facility] Comment on above: Performed By: #### L 100.0500, L500.2500 ####[facility] [address] [place], [address] MCH (RBC) [Entitic mass] 31.1 pg Normal 27.0-32.0 [facility] Comment on above: Performed By: #### L 100.0500, L500.2500 ####[facility] [address] [place], [address] MCHC (RBC) [Mass/Vol] 32.9 g/dL Normal 32-36 [facility] Comment on above: Performed By: #### L 100.0500, L500.2500 ####[facility] [address] [place], [address] MCV (RBC) [Entitic vol] 94.5 fL Normal 81-99 [facility] Comment on above: Performed By: #### L 100.0500, L500.2500 ####[facility] [address] [place], [address] Platelet mean volume (Bld) [Entitic vol] 10.6 fL Normal 6.2-12.0 [facility] Comment on above: Performed By: #### L 100.0500, L500.2500 ####[facility] [address] [place], [address] Platelets (Bld) [#/Vol] 180 10*3/uL Normal 150-450 [facility] Comment on above: Performed By: #### L 100.0500, L500.2500 ####[facility] [address] [place], [address] RBC (Bld) [#/Vol] 3.83 10*6/uL Low 4.2-5.4 [facility] Comment on above: Performed By: #### L 100.0500, L500.2500 ####[facility] [address] [place], [address] RDW SD 59.8 fl High 35.1-43.9 [facility] Comment on above: Performed By: #### L 100.0500, L500.2500 ####[facility] [address] [place], [address] WBC (Bld) [#/Vol] 16.2 10*3/uL High 4.4-11.0 [facility] Comment on above: Performed By: #### L 100.0500, L500.2500 ####[facility] [address] [place], [place], [address] 12 Lead EKGon 10-11-2024 12 Lead EKG Normal [facility] Absolute neutrophil countOrd ered By: Preston Jimenez on 10-11-2024 Neutrophils (Bld) [#/Vol] 22.7 10*3/uL High 2.0-7.7 [facility] Activated partial thrombopla stin time (aPTT) in platelet poor plasma by coagulation aOrdered By: Preston Jimenez on 10-11-2024 aPTT Coag (PPP) [Time] 30.1 s 24.1-36.2 [facility] Anion gap in Serum or Plasma Ordered By: Preston Jimenez on 10-11-2024 Anion gap [Moles/Vol] 16 mmol/L High 5-15 [facility] Arterial patency Wrist arter y --pre arterial punctureOrdered By: Neisha Boston on 10-11-2024 Gui Test Positive [facility] Assessment of wrist artery p atency prior to arterial punctureOrdered By: Neisha Boston on 10-11-2024 Arterial patency Wrist artery --pre arterial puncture Positive [facility] BUN/creatinine ratioOrdered By: Preston Jimenez on 10-11-2024 Urea nitrogen/Creatinine [Mass ratio] 19.7 mg/mg 10- [facility] Base excess Calc (BldV) [Mol es/Vol]Ordered By: Neisha Boston on 10-11-2024 Blood Gas Base Excess -7 mmol/L Low -2-2 [facility] Basic Metabolic Profile (BMP )on 10-11-2024 BUN/CRE 19.7 RATIO Normal - [facility] Comment on above: Performed By: #### L 500.2500, L300.3900, L100.0100, L501.5200, M200.1000, L300.4310, L503.6005 ####[facility] [address] [place], [address] Calcium [Mass/Vol] 8.7 mg/dL Normal 7.6-11.0 [facility] Comment on above: Performed By: #### L 500.2500, L300.3900, L100.0100, L501.5200, M200.1000, L300.4310, L503.6005 ####[facility] [address] [place], [address] Chloride [Moles/Vol] 103 mmol/L Normal 98-108 [facility] Comment on above: Performed By: #### L 500.2500, L300.3900, L100.0100, L501.5200, M200.1000, L300.4310, L503.6005 ####[facility] [address] [place], [address] CO2 [Moles/Vol] 20.2 mmol/L Low 21.0-32.0 [facility] Comment on above: Performed By: #### L 500.2500, L300.3900, L100.0100, L501.5200, M200.1000, L300.4310, L503.6005 ####[facility] [address] [place], [address] Creatinine [Mass/Vol] 0.90 mg/dL Normal 0.70-1.20 [facility] Comment on above: Performed By: #### L 500.2500, L300.3900, L100.0100, L501.5200, M200.1000, L300.4310, L503.6005 ####[facility] [address] [place], [address] ECRCL 53.67 ml/min Normal 50-250 [facility] Comment on above: Performed By: #### L 500.2500, L300.3900, L100.0100, L501.5200, M200.1000, L300.4310, L503.6005 ####[facility] [address] [place], [address] GAP 16 High 5-15 [facility] Comment on above: Performed By: #### L 500.2500, L300.3900, L100.0100, L501.5200, M200.1000, L300.4310, L503.6005 ####[facility] [address] [place], [address] GFR/1.73 sq M.predicted among non-blacks MDRD (S/P/Bld) [Vol rate/Area] 68 mL/min/{1.73_m2} Normal >60 [facility] Comment on above: Result Comment: mL/m in/1.73m2 CKD-EPI Creatinine Equation (2020) Performed By: #### L 500.2500, L300.3900, L100.0100, L501.5200, M200.1000, L300.4310, L503.6005 ####[facility] [address] [place], [address] Glucose [Mass/Vol] 139 mg/dL High 70-99 [facility] Comment on above: Performed By: #### L 500.2500, L300.3900, L100.0100, L501.5200, M200.1000, L300.4310, L503.6005 ####[facility] [address] [place], [address] Potassium [Moles/Vol] 2.8 mmol/L Low 3.3-5.1 [facility] Comment on above: Performed By: #### L 500.2500, L300.3900, L100.0100, L501.5200, M200.1000, L300.4310, L503.6005 ####[facility] [address] [place], [address] Sodium [Moles/Vol] 139 mmol/L Normal 133-145 [facility] Comment on above: Performed By: #### L 500.2500, L300.3900, L100.0100, L501.5200, M200.1000, L300.4310, L503.6005 ####[facility] [address] [place], [address] Urea nitrogen [Mass/Vol] 18 mg/dL Normal 4-19 [facility] Comment on above: Performed By: #### L 500.2500, L300.3900, L100.0100, L501.5200, M200.1000, L300.4310, L503.6005 ####[facility] [address] [place], [address] Blood Gases by [facility] 025 GUI TEST Positive Normal [facility] Comment on above: Performed By: #### L 9000.0800 ####[facility] [address] [place], [address] Base excess Calc (Bld) [Moles/Vol] -7 mmol/L Low -2 to +2 [facility] Comment on above: Performed By: #### L 9000.0800 ####[facility] [address] [place], [address] Blood Gas Type ART Normal [facility] Comment on above: Performed By: #### L 9000.0800 ####[facility] [address] [place], [address] CO2 [Moles/Vol] 19 mmol/L Normal [facility] Comment on above: Performed By: #### L 9000.0800 ####[facility] [address] [place], [address] FI02 10.0 Normal [facility] Comment on above: Performed By: #### L 9000.0800 ####[facility] [address] [place], [address] HCO3 (Bld) [Moles/Vol] 18.1 mmol/L Low 22-26 [facility] Comment on above: Performed By: #### L 9000.0800 ####[facility] [address] [place], [address] Mode Not entered Normal [facility] Comment on above: Performed By: #### L 9000.0800 ####[facility] [address] [place], [address] O2 Delivery Dev Cannula Normal [facility] Comment on above: Performed By: #### L 9000.0800 ####[facility] [address] [place], [address] pCO2 30.4 mmHg Low 35-45 [facility] Comment on above: Performed By: #### L 9000.0800 ####[facility] [address] [place], [address] pH (Bld) 7.38 [pH] Normal 7.35-7.45 [facility] Comment on above: Performed By: #### L 9000.0800 ####[facility] [address] [place], [address] PO2 81 mmHG Normal 75-100 [facility] Comment on above: Performed By: #### L 9000.0800 ####[facility] [address] [place], [address] SITE L Radial Normal [facility] Comment on above: Performed By: #### L 9000.0800 ####[facility] [address] [place], [address] SO2 96 Normal 95-99 [facility] Comment on above: Performed By: #### L 9000.0800 ####[facility] [address] [place], [address] Blood band neutrophil count as percentage of total leukocytesOrdered By: Preston Jimenez on 10-11-2024 Band form neutrophils/100 WBC (Bld) 31 % High 0-5 [facility] Blood base excess determinat ionOrdered By: Neisha Boston on 10-11-2024 Base excess Calc (BldV) [Moles/Vol] -7 mmol/L Low -2-2 [facility] Blood bicarbonate measuremen tOrdered By: Neisha Boston on 10-11-2024 Blood Gas Bicarbonate Actual 18.1 mmol/L Low 22-26 [facility] HCO3 (Bld) [Moles/Vol] 18.1 mmol/L Low 22-26 [facility] Blood cultureOrdered By: Aston Jimenez on 10-11-2024 Bacteria identified Cx Nom (Bld) No growth in 5 days. [facility] Bacteria identified Cx Nom (Bld) No growth in 5 days. [facility] Blood lymphocytes/100 leukoc ytesOrdered By: Preston Jimenez on 10-11-2024 Lymphocytes/100 WBC (Bld) 3 % Low 19-41 [facility] Blood manual differential co mment interpretation (narrative result)Ordered By: Preston Jimenez on 10-11-2024 Manual differential comment Leonid (Bld) [Interp] SCANNED [facility] Comment on above: LEFT SHIFT: BANDS OH ESENT 1+NEUTROPHILIA PRESENT Blood monocytes/100 leukocyt esOrdered By: Preston Jimenez on 10-11-2024 Monocytes/100 WBC (Bld) 3 % 0-10 [facility] Blood segmented neutrophils/ 100 leukocytesOrdered By: Preston Jimenez on 10-11-2024 Segmented neutrophils/100 WBC (Bld) 63 % 47-70 [facility] CBC W/Diff, Automatedon 09-23 SMEAR COMMENT SCANNED Normal [facility] Comment on above: Result Comment: LEFT SHIFT: BANDS PRESENT 1+NEUTROPHILIA PRESENT Performed By: #### L 500.2500, L300.3900, L100.0100, L501.5200, M200.1000, L300.4310, L503.6005 ####[facility] [address] [place], [address] CTA Chest W/WO Contraston CTA Chest W/WO Contrast Normal [facility] Carbon dioxide, total [Moles /volume] in Central venous bloodOrdered By: Preston Jimenez on 10-11-2024 CO2 [Moles/Vol] 20.2 mmol/L Low 21.0-32.0 [facility] Cells counted Molgen (Bld/Ti ss) [#]Ordered By: Preston Jimenez on 10-11-2024 Differential Total Cells Counted 100 MANUAL DIFF [facility] Chloride assayOrdered By: Missy Jimenez on 10-11-2024 Chloride [Moles/Vol] 103 mmol/L 98-108 [facility] Consultation - Intensiviston 10-11-2024 Consultation - Clerk Of Scales Normal [facility] Determination of fraction of inspired oxygenOrdered By: Neisha Boston on 10-11-2024 Blood Gas Oxygen Percent 10.0 [facility] Echo Complete W/ Contraston 10-11-2024 Echo Complete W/ Contrast Normal [facility] Echocardiogram study reportO rdered By: Ray Antoine on 10-11-2024 Study report [facility] [address] [place] [address] Echo Complete W/ Contrast 10/11/24 1220 MR#: [id number] Acct: [id number] Name: CHARLIE ESTRADA Rep #:[id number] : 1950 73 From: Ray Vargas Attending Dr: Dr. Neisha Boston MD Status: ADM IN Ordering Dr: Neisha Boston MD Date: 10/11/24 Location: PCU Sex: F C Admitted: 10/11/24 Reason For Study Reason For Study: DYSPNEA/SOB Procedure This was a 2D Doppler, Color Flow transthoracic echocardiogram. The study was technically difficult. Due to body habitus. Contrast injection was performed. Exam performed portable in patient room. Left Ventricle Normal LV size. The left ventricular ejection fraction is 60 %. Stage 1 diastolic dysfunction. No regional wall motion abnormalities noted. Right Ventricle Normal RV size. Normal systolic function. Atria Normal left atrium. Normal right atrium. Mitral Valve Normal mitral valve. Tricuspid Valve Normal tricuspid valve. Mild tricuspid valve insufficiency. Aortic Valve Trisinus/trileaflet aortic valve. Pulmonic Valve Normal pulmonic valve. Great Vessels Normal aortic root. The pulmonary artery is normal size. Inferior vena cava collapse with respiration. Pericardium/Pleural No pericardial effusion. Medication Diluted definity 3.0ml given slow IV push to enhance endocardial definition. MMode/2D Measurements & Calculations LVIDd: 4.8 cm IVSd: 0.96 cm Ao root diam: 3.3 cm LVIDs: 2.7 cm LVPWd: 1.0 cm FS: 44.3 % _ LAV(MOD-bp): 31.5 ml LVAd ap4: 13.0 cm2 SV(MOD-sp4): 16.1 ml LAV(MOD-bp) Indexed: 18.0 ml/m2 LVLd ap4: 5.3 cm SI(MOD-sp4): 9.2 ml/m2 LAV(MOD-sp2): 40.3 ml EDV(MOD-sp4): 27.7 ml LAV(MOD-sp4): 22.5 ml EDV(sp4-el): 27.0 ml LVAs ap4: 7.1 cm2 LVLs ap4: 4.0 cm ESV(MOD-sp4): 11.6 ml ESV(sp4-el): 10.7 ml EF(MOD-sp4): 58.2 % EF(sp4-el): 60.4 % SV(sp4-el): 16.3 ml LA A4 area: 10.7 cm2 LA dimension(2D): 3.2 cm TAPSE: 1.7 cm Time Measurements MV dec time: 0.20 sec Doppler Measurements & Calculations MV E max carol: 58.2 cm/sec Lat Peak E' Carol: 8.3 cm/sec Med Peak E' Carol: 5.4 cm/sec MV A max carol: 61.7 cm/sec E/E' lat: 7.0 E/E' med: 10.9 MV E/A: 0.94 MV V2 max: 82.0 cm/sec MV P1/2t max carol: 60.4 cm/sec Ao V2 max: 120.4 cm/sec MV max P.7 mmHg MV P1/2t: 53.4 msec Ao max P.8 mmHg MV V2 mean: 36.3 cm/sec Ao V2 mean: 84.7 cm/sec MV mean P.65 mmHg MV dec slope: 331.3 cm/sec2 Ao mean P.2 mmHg MV V2 VTI: 19.4 cm MVA(P1/2t): 4.1 cm2 Ao V2 VTI: 25.5 cm AV (velocity ratio): 0.86 LV V1 max: 102.0 cm/sec PA V2 max: 89.6 cm/sec TR max carol: 205.5 cm/sec LV V1 max P.2 mmHg PA V2 mean: 60.8 cm/sec TR max P.9 mmHg LV V1 mean P.3 mmHg PA V2 VTI: 17.3 cm LV V1 mean: 72.5 cm/sec LV V1 VTI: 22.0 cm ECHO/Echo Complete W/ Contrast Interpretation Summary Normal LV size. The left ventricular ejection fraction is 60 %. Stage 1 diastolic dysfunction. Contrast injection was performed. Ordering Physician: Neisha Boston Referring Physician: Jannet Dey Performed By: Codie Pantoja, RENAE, RVT 10/11/24 1326 Date _ Ray Antoine MD CC: Dr. Jannet Dey MD; Dr. Neisha Boston MD ~ Date Dictated: 10/11/24 1220 Date Transcribed: 10/11/24 1326 [employer] Maker: Signed [facility] Work Phone: Emergency Department Summary on 10-11-2024 Emergency Department Summary Normal [facility] Erythrocyte distribution wid th (RBC) [Ratio]Ordered By: Preston Jimenez on 10-11-2024 Erythrocyte distribution width (RBC) [Entitic vol] 55.5 fL High 35.1-43.9 [facility] Erythrocyte distribution wid th ratioOrdered By: Preston Jimenez on 10-11-2024 Erythrocyte distribution width (RBC) [Ratio] 17.1 % High 11.6-14.6 [facility] Estimation of creatinine zach aranceOrdered By: Preston Jimenez on 10-11-2024 Estimated Creatinine Clearance Calc 53.67 ml/min 50-250 [facility] GFR/1.73 sq M.predicted kaylan g non-blacks MDRD (S/P/Bld) [Vol rate/Area]Ordered By: Preston Jimenez on 10-11-2024 Estimated GFR (MDRD) Non-Af Amer 68 >60 [facility] Comment on above: mL/min/1.73m2 CKD-EP I Creatinine Equation (2020) H AND P Exam - Hospitaliston 10-11-2024 H&P Exam - Hospitalist Normal [facility] Hematocrit Auto (Bld) [Volum e fraction]Ordered By: Preston Jimenez on 10-11-2024 Hematocrit (Bld) [Volume fraction] 41.8 % 37-47 [facility] Hemoglobin measurementOrdere d By: Preston Jimenez on 10-11-2024 Hemoglobin (Bld) [Mass/Vol] 14.4 g/dL 12.0-15.0 [facility] Influenza virus A and B and SARS-CoV-2 (COVID-19) and Respiratory syncytial virus RNAOrdered By: Preston Jimenez on 10-11-2024 SARS-CoV-2 (COVID-19) RNA JORDAN+probe Ql (Unsp spec) [facility] International normalized rat io (INR) calculationOrdered By: Preston Jimenez on 10-11-2024 INR Coag (Bld) [Relative time] 1.4 {INR} [facility] L. pneumophila Ag Ql (U)Orde red By: Nikolai Mejia on 10-11-2024 Legionella Antigen [facility] L503.7505on 10-11-2024 Natriuretic peptide B (Bld) [Mass/Vol] 5789 pg/mL High <=900 [facility] Comment on above: Result Comment: Hear t Failure Unlikely: < 300 pg/mLHeart Failure Likely< 50 Years: > 450 pg/mL50-75 Years: > 900 pg/mL>75 Years: > 1800 pg/mL Performed By: #### L 091.9066 ####[facility] [address] [place], [place], [address] Lactic Acidon 10-11-2024 Lactate [Moles/Vol] 4.0 mmol/L Invalid Interpretation Code 0.0-2.0 [facility] Comment on above: Result Comment: Crit ical Result(s) Called to Jaime ORTEZ ([facility]): Gio:??Results read back by same.Critical Result(s) Called at: by:??Results read back bysame.Critical Result(s) Called to Jaime ORTEZ ([facility]): Gio:??Results read back by same. AMENDED REPORT 10/11/242300 LACTIC ACID previously reported as: 4.0 *H mmol/LCritical Result(s) Called to Jaime ORTEZ ([facility]): Gio:??Results read back by same.Critical Result(s) Called at: by:??Results read back bysame. Performed By: #### L 503.6005 ####[facility] [address] [place], [place], [address] Lactate [Moles/Vol] 2.0 mmol/L Normal 0.0-2.0 [facility] Comment on above: Order Comment: Y Result Comment: Crit ical Result(s) Called at 0456: by: JOSE MORALES??Results read back by same. Performed By: #### L 500.2500, L300.3900, L100.0100, L501.5200, M200.1000, L300.4310, L503.6005 ####[facility] [address] [place], [place], [address] Lactic acid measurementOrder ed By: Preston Jimenez on 10-11-2024 Lactate [Moles/Vol] 4.0 mmol/L High 0.0-2.0 [facility] Comment on above: Critical Result(s) C alled to Jaime ORTEZ ([facility]): by Susan: Results read back by same. Critical Result(s) Called at: by: Results read back by same. Critical Result(s) Called to Jaime ORTEZ ([facility]): by Susan: Results read back by same.Previous reported result: 4.0 mmol/LEdited by: AUTOINS on 10/11/24:0933 AMENDED REPORT 10/11/24 0933 LACTIC ACID previously reported as: 4.0 *H mmol/L Critical Result(s) Called to Jaime ORTEZ ([facility]): by Susan: Results read back by same.Previous reported result: 4.2 mmol/LEdited by: MSTONER on 10/11/24:0934 AMENDED REPORT 10/11/24 0934 LACTIC ACID previously reported as: 4.2 *H mmol/L Critical Result(s) Called to Jaime ORTEZ ([facility]): by Susan: Results read back by same. Critical Result(s) Called at: by: Results read back by same.Previous reported result: 4.0 mmol/LEdited by: AUTOINS on 10/11/24:2301 AMENDED REPORT 10/11/24 2301 LACTIC ACID previously reported as: 4.0 *H mmol/L Critical Result(s) Called to Jaime ORTEZ ([facility]): by Susan: Results read back by same. Critical Result(s) Called at: by: Results read back by same. Lactate [Moles/Vol] 2.0 mmol/L 0.0-2.0 [facility] Comment on above: Critical Result(s) C alled at 0456: by: NBURNS TO LSPARR Results read back by same. Legionella Antigen Urineon 0 10-11-2024 LEGU Normal [facility] Comment on above: Performed By: #### M 300.9920, M300.4600 ####[facility] [address] [place], [address] Lymphocytes Auto (Unsp spec) [#/Vol]Ordered By: Preston Jimenez on 10-11-2024 Lymphocytes (Bld) [#/Vol] 0.70 10*3/uL Low 0.83-4.51 [facility] M100.678on 10-11-2024 M100.678 SARS-CoV-2 (COVID 19 ) Negative INFLUENZA A Negative INFLUENZA B Negative RSV PCR Negative Normal [facility] Comment on above: Performed By: #### M 100.678 ####[facility] [address] [place], [address] MCV (mean corpuscular volume ) determinationOrdered By: Preston Jimenez on 10-11-2024 MCV (RBC) [Entitic vol] 91.5 fL 81-99 [facility] Magnesiumon 10-11-2024 Magnesium [Mass/Vol] 1.1 mg/dL Low 1.5-2.2 [facility] Comment on above: Performed By: #### L 500.2500, L300.3900, L100.0100, L501.5200, M200.1000, L300.4310, L503.6005 ####[facility] [address] [place], [address] Magnesium (Unsp spec) [Mass/ Vol]Ordered By: Preston Jimenez on 10-11-2024 Magnesium [Mass/Vol] 1.1 mg/dL Low 1.5-2.2 [facility] Manual differential comment Leonid (Bld) [Interp]Ordered By: Preston Jimenez on 10-11-2024 Differential Comment SCANNED [facility] Comment on above: LEFT SHIFT: BANDS [place] ESENT 1+NEUTROPHILIA PRESENT Mean corpuscular hemoglobin (MCH) determinationOrdered By: Preston Jimenez on 10-11-2024 MCH (RBC) [Entitic mass] 31.5 pg 27.0-32.0 [facility] Mean corpuscular hemoglobin concentration (MCHC) determinationOrdered By: Preston Jimenez on 10-11-2024 MCHC (RBC) [Mass/Vol] 34.4 g/dL 32-36 [facility] Mean platelet volume determi nationOrdered By: Preston Jimenez on 10-11-2024 Platelet mean volume (Bld) [Entitic vol] 9.8 fL 6.2-12.0 [facility] Measurement, pHOrdered By: Radha Boston on 10-11-2024 pH (Unsp spec) 7.38 [pH] 7.35-7.45 [facility] Natriuretic peptide.B prohor alyx N-Terminal [Mass/Vol]Ordered By: Neisha Boston on 10-11-2024 Natriuretic peptide B (Bld) [Mass/Vol] 5789 pg/mL High <900 [facility] Comment on above: Heart Failure Unlike ly: < 300 pg/mLHeart Failure Likely< 50 Years: > 450 pg/mL50-75 Years: > 900 pg/mL>75 Years: > 1800 pg/mL Natriuretic peptide.B prohor alyx N-Terminal [Mass/volume] in Serum or PlasmaOrdered By: Neisha Boston on 10-11-2024 Natriuretic peptide.B prohormone N-Terminal [Mass/Vol] 5789 pg/mL High <900 [facility] Comment on above: Heart Failure Unlike ly: < 300 pg/mLHeart Failure Likely< 50 Years: > 450 pg/mL50-75 Years: > 900 pg/mL>75 Years: > 1800 pg/mL Neutrophil percentageOrdered By: Preston Jimenez on 10-11-2024 Neutrophils (%) (Auto) Not Reportable [facility] No Panel InformationOrdered By: Neisha Boston on 10-11-2024 Blood Gas Sample Site L Radial [facility] Blood Gas Specimen Type ART [facility] Blood Gas Vent Mode Not entered [facility] Oxygen Delivery Device Cannula [facility] Oxygen saturation measuremen tOrdered By: Neisha Boston on 10-11-2024 Blood Gas Oxygen Saturation 96 % 95-99 [facility] Partial Thromboplast Timeon 10-11-2024 aPTT Coag (Bld) [Time] 30.1 s Normal 24.1-36.2 [facility] Comment on above: Performed By: #### L 500.2500, L300.3900, L100.0100, L501.5200, M200.1000, L300.4310, L503.6005 ####[facility] [address] [place], [place], [id number] Partial pressure of carbon d ioxide measurementOrdered By: Neishaderrick Boston on 10-11-2024 Arterial Blood Partial Pressure CO2 30.4 mmHg Low 35-45 [facility] Partial pressure of oxygen m easurementOrdered By: Neisha Ludy on 10-11-2024 Arterial Blood Partial Pressure O2 81 mmHG 75-100 [facility] Phosphoruson 10-11-2024 Phosphate [Mass/Vol] 3.1 mg/dL Normal 2.7-4.5 [facility] Comment on above: Performed By: #### L 501.2300 ####[facility] [address] [place], [place], [id number] Platelet countOrdered By: Missy Jimenez on 10-11-2024 Platelets (Bld) [#/Vol] 208 10*3/uL 150-450 [facility] Platelet estimateOrdered By: Preston Jimenez on 10-11-2024 Platelets LM Ql (Bld) ADEQUATE ADEQ [facility] Platelets LM Ql (Bld)Ordered By: Preston Jimenez on 10-11-2024 Platelet Estimate ADEQUATE [facility] Potassium (Unsp spec) [Mass/ Vol]Ordered By: Preston Jimenez on 10-11-2024 Potassium [Moles/Vol] 2.8 mmol/L Low 3.3-5.1 [facility] Prothrombin Time w/INRon INR Coag (PPP) [Relative time] 1.4 {INR} Normal [facility] Comment on above: Performed By: #### L 500.2500, L300.3900, L100.0100, L501.5200, M200.1000, L300.4310, L503.6005 ####[facility] [address] [place], [place], [id number] PT Coag (PPP) [Time] 17.6 s High 11.7-14.9 [facility] Comment on above: Performed By: #### L 500.2500, L300.3900, L100.0100, L501.5200, M200.1000, L300.4310, L503.6005 ####[facility] [address] [place], [address] Prothrombin timeOrdered By: Preston Jimenez on 10-11-2024 PT Coag (PPP) [Time] 17.6 s High 11.7-14.9 [facility] RBC Auto (Bld) [#/Vol]Ordere d By: Preston Jimenez on 10-11-2024 RBC (Bld) [#/Vol] 4.57 10*6/uL 4.2-5.4 [facility] Segmented neutrophils/100 WB C (Bld)Ordered By: Preston Jimenez on 10-11-2024 Neutrophils/100 WBC (Bld) 63 % 47-70 [facility] Serum Mycoplasma pneumoniae IgG antibody detectionOrdered By: Preston Patrick on 10-11-2024 M. pneumoniae IgG Ql (S) 216 U/mL High 0-99 [facility] Comment on above: Negative: <100 Indet erminate: 100 - 320 Positive: >320The reference interval established is intended as abaseline only. Values >100 may indicate a recentinfection with Mycoplasma pneumoniae and need to beconfirmed either by a positive IgM result and/or anadditional specimen drawn 2-4 weeks later showing asignificant increase in antibody levels. Serum Mycoplasma pneumoniae IgM antibody detectionOrdered By: Preston Patrick on 10-11-2024 M. pneumoniae IgM Ql (S) 949 U/mL High 0-769 [facility] Comment on above: Negative <770Clinica lly significant amount of M. pneumoniae antibodynot detected. Low Positive 770 - 950M. pneumoniae specific IgM presumptively detected. Itis recommended that another sample be collected 1-2weeks later to assure reactivity. Positive >950Highly significant amount of M. pneumoniae specificIgM antibody detected.Performed at: [facility] [address] [id number] Director: Domingo Ramesh PhD, Phone: [phone] Serum creatinine measurement (mass/volume)Ordered By: Preston Jimenez on 10-11-2024 Creatinine [Mass/Vol] 0.90 mg/dL 0.70-1.20 [facility] Serum glucose measurement (m ass/volume)Ordered By: Preston Jimenez on 10-11-2024 Glucose [Mass/Vol] 139 mg/dL High 70-99 [facility] Serum or plasma calcium tommy urement (mass/volume)Ordered By: Preston Jimenez on 10-11-2024 Calcium [Mass/Vol] 8.7 mg/dL 7.6-11.0 [facility] Serum or plasma urea nitroge n measurement (mass/volume)Ordered By: Preston Jimenez on 10-11-2024 Urea nitrogen [Mass/Vol] 18 mg/dL 4-19 [facility] Sodium levelOrdered By: Turner Jimenez on 10-11-2024 Sodium [Moles/Vol] 139 mmol/L 133-145 [facility] Strep pneumoniae Antig(UR,CS F)on 10-11-2024 STPAG URINE INTERPRETATION Positive Urine Positive for pneumococcal pneumonia. Strep pneumo Test Urine POSITIVE for pneumococcal pneumonia.A Streptococcus pneumonia Ag Normal [facility] Comment on above: Performed By: #### M 300.4500, M300.4600 ####[facility] [address] [place], [address] Streptococcus pneumoniae ant igen assayOrdered By: Nikolai Mejia on 10-11-2024 Streptococcus pneumoniae Antigen (M Streptococcus pneumonia Ag Abnormal [facility] Streptococcus pneumoniae antigen assay Streptococcus pneumonia Ag Abnormal [facility] Total carbon dioxide measure mentOrdered By: Neisha Boston on 10-11-2024 Blood Gas Total CO2 19 mmol/L [facility] CO2 [Moles/Vol] 19 mmol/L [facility] Total cell countOrdered By: Preston Jimenez on 10-11-2024 Cells counted [employer] (Bld/Tiss) [#] 100 MANUAL DIFF [facility] Urine Legionella pneumophila antigen detectionOrdered By: Nikolai Mejia on 10-11-2024 L. pneumophila Ag Ql (U) [facility] White blood cell (WBC) count Ordered By: Preston Jimenez on 10-11-2024 WBC (Bld) [#/Vol] 24.1 10*3/uL High 4.4-11.0 [facility] aPTT Coag (PPP) [Time]Ordere d By: Preston Jimenez on 10-11-2024 aPTT Coag (Bld) [Time] 30.1 s 24.1-36.2 [facility] pH (Unsp spec)Ordered By: Estrella Boston on 10-11-2024 Blood Gas pH 7.38 7.35-7.45 [facility] CNOVon 10-08-2024 CNOV Normal [facility] Mccracken MR/BMS.IMBon 09-10-2024 MR/BMS.IMB Normal [facility] Urine Cultureon 09-08-2024 URC Normal [facility] Comment on above: Performed By: #### M 100.2200 ####[facility] [address] [place], [place], [id number] Absolute lymphocyte countOrd ered By: Yang Smiley on 09-07-2024 Lymphocytes Auto (Unsp spec) [#/Vol] 0.59 10*3/uL Low 0.83-4.51 [facility] Absolute neutrophil countOrd ered By: Yang Smiley on 09-07-2024 Neutrophils (Bld) [#/Vol] 10.5 10*3/uL High 2.0-7.7 [facility] Anion gap in Serum or Plasma Ordered By: Yang Smiley on 09-07-2024 Anion gap [Moles/Vol] 16 mmol/L High 5-15 [facility] Automated lymphocyte count a s percentage of total leukocytesOrdered By: Yang Smiley on 09-07-2024 Lymphocytes/100 WBC Auto (Unsp spec) 4.9 % Low 19-41 [facility] BUN/creatinine ratioOrdered By: Yang Smiley on 09-07-2024 Urea nitrogen/Creatinine [Mass ratio] 17.5 mg/mg 10- [facility] Basic Metabolic Profile (BMP )on 09-07-2024 BUN/CRE 17.5 RATIO Normal - [facility] Comment on above: Performed By: #### L 500.2500, L100.0100 ####[facility] [address] [place], [place], [id number] Calcium [Mass/Vol] 8.2 mg/dL Normal 7.6-11.0 [facility] Comment on above: Performed By: #### L 500.2500, L100.0100 ####[facility] [address] [place], [address] Chloride [Moles/Vol] 104 mmol/L Normal 98-108 [facility] Comment on above: Performed By: #### L 500.2500, L100.0100 ####[facility] [address] [place], [address] CO2 [Moles/Vol] 18.0 mmol/L Low 21.0-32.0 [facility] Comment on above: Performed By: #### L 500.2500, L100.0100 ####[facility] [address] [place], [address] Creatinine [Mass/Vol] 0.93 mg/dL Normal 0.70-1.20 [facility] Comment on above: Performed By: #### L 500.2500, L100.0100 ####[facility] [address] [place], [address] ECRCL 56.57 ml/min Normal 50-250 [facility] Comment on above: Performed By: #### L 500.2500, L100.0100 ####[facility] [address] [place], [address] GAP 16 High 5-15 [facility] Comment on above: Performed By: #### L 500.2500, L100.0100 ####[facility] [address] [place], [address] GFR/1.73 sq M.predicted among non-blacks MDRD (S/P/Bld) [Vol rate/Area] 66 mL/min/{1.73_m2} Normal >60 [facility] Comment on above: Result Comment: mL/m in/1.73m2 CKD-EPI Creatinine Equation (2020) Performed By: #### L 500.2500, L100.0100 ####[facility] [address] [place], [address] Glucose [Mass/Vol] 146 mg/dL High 70-99 [facility] Comment on above: Performed By: #### L 500.2500, L100.0100 ####[facility] [address] [place], [address] Potassium [Moles/Vol] 3.2 mmol/L Low 3.3-5.1 [facility] Comment on above: Result Comment: Hemo lysis present, Results??could be affected.?? Performed By: #### L 500.2500, L100.0100 ####[facility] [address] [place], [address] Sodium [Moles/Vol] 137 mmol/L Normal 133-145 [facility] Comment on above: Performed By: #### L 500.2500, L100.0100 ####[facility] [address] [place], [address] Urea nitrogen [Mass/Vol] 16 mg/dL Normal 4-19 [facility] Comment on above: Performed By: #### L 500.2500, L100.0100 ####[facility] [address] [place], [address] Basophil percentageOrdered B y: Yang Smiley on 09-07-2024 Basophils/100 WBC (Bld) 0.1 % 0-1 [facility] CBC W/Diff, Automatedon 08-23 Absolute Lymph 0.59 X10 3/uL Low 0.83-4.51 [facility] Comment on above: Performed By: #### L 500.2500, L100.0100 ####[facility] [address] [place], [address] Absolute Neut 10.5 X10 3/uL High 2.0-7.7 [facility] Comment on above: Performed By: #### L 500.2500, L100.0100 ####[facility] [address] [place], [address] Basophils/100 WBC (Bld) 0.1 % Normal 0-1 [facility] Comment on above: Performed By: #### L 500.2500, L100.0100 ####[facility] [address] [place], [address] Eosinophils/100 WBC (Bld) 0.0 % Normal 0-5 [facility] Comment on above: Performed By: #### L 500.2500, L100.0100 ####[facility] [address] [place], [address] Erythrocyte distribution width (RBC) [Ratio] 16.9 % High 11.6-14.6 [facility] Comment on above: Performed By: #### L 500.2500, L100.0100 ####[facility] [address] [place], [address] Hematocrit (Bld) [Volume fraction] 40.0 % Normal 37-47 [facility] Comment on above: Performed By: #### L 500.2500, L100.0100 ####[facility] [address] [place], [address] Hemoglobin (Bld) [Mass/Vol] 13.2 g/dL Normal 12.0-15.0 [facility] Comment on above: Performed By: #### L 500.2500, L100.0100 ####[facility] [address] [place], [address] IG% 0.500 Normal 0.0-0.9 [facility] Comment on above: Result Comment: IG% - Immature Granulocytes (promyelocytes, myelocytes andmetamyelocytes) > 1% indicates that a LEFT SHIFT is Present. Performed By: #### L 500.2500, L100.0100 ####[facility] [address] [place], [address] Lymphocytes/100 WBC (Bld) 4.9 % Low 19-41 [facility] Comment on above: Performed By: #### L 500.2500, L100.0100 ####[facility] [address] [place], [address] MCH (RBC) [Entitic mass] 32.4 pg High 27.0-32.0 [facility] Comment on above: Performed By: #### L 500.2500, L100.0100 ####[facility] [address] [place], [address] MCHC (RBC) [Mass/Vol] 33.0 g/dL Normal 32-36 [facility] Comment on above: Performed By: #### L 500.2500, L100.0100 ####[facility] [address] [place], [address] MCV (RBC) [Entitic vol] 98.0 fL Normal 81-99 [facility] Comment on above: Performed By: #### L 500.2500, L100.0100 ####[facility] [address] [place], [address] Monocytes/100 WBC (Bld) 7.4 % Normal 0-10 [facility] Comment on above: Performed By: #### L 500.2500, L100.0100 ####[facility] [address] [place], [address] Neutrophils/100 WBC (Bld) 87.1 % High 47-70 [facility] Comment on above: Performed By: #### L 500.2500, L100.0100 ####[facility] [address] [place], [address] Nucleated RBC (Bld) [#/Vol] 0 10*3/uL Normal 0-5 [facility] Comment on above: Performed By: #### L 500.2500, L100.0100 ####[facility] [address] [place], [address] Platelet mean volume (Bld) [Entitic vol] 9.9 fL Normal 6.2-12.0 [facility] Comment on above: Performed By: #### L 500.2500, L100.0100 ####[facility] [address] [place], [address] Platelets (Bld) [#/Vol] 180 10*3/uL Normal 150-450 [facility] Comment on above: Performed By: #### L 500.2500, L100.0100 ####[facility] [address] [place], [address] RBC (Bld) [#/Vol] 4.08 10*6/uL Low 4.2-5.4 [facility] Comment on above: Performed By: #### L 500.2500, L100.0100 ####[facility] [address] [place], [address] RDW SD 58.9 fl High 35.1-43.9 [facility] Comment on above: Performed By: #### L 500.2500, L100.0100 ####[facility] [address] [place], [address] WBC (Bld) [#/Vol] 12.0 10*3/uL High 4.4-11.0 [facility] Comment on above: Performed By: #### L 500.2500, L100.0100 ####[facility] [address] [place], [address] Carbon dioxide, total [Moles /volume] in Central venous bloodOrdered By: Yang Smiley on 09-07-2024 CO2 [Moles/Vol] 18.0 mmol/L Low 21.0-32.0 [facility] Chloride assayOrdered By: St roberto carlos Smiley on 09-07-2024 Chloride [Moles/Vol] 104 mmol/L 98-108 [facility] Eosinophil percentageOrdered By: Yang Smiley on 09-07-2024 Eosinophils/100 WBC (Bld) 0.0 % 0-5 [facility] Erythrocyte distribution wid th ratioOrdered By: Yang Smiley on 09-07-2024 Erythrocyte distribution width (RBC) [Ratio] 16.9 % High 11.6-14.6 [facility] Erythrocyte distribution wid th standard deviationOrdered By: Yang Smiley on 09-07-2024 Erythrocyte distribution width (RBC) [Entitic vol] 58.9 fL High 35.1-43.9 [facility] Erythrocyte distribution width (RBC) [Ratio] 58.9 fl High 35.1-43.9 [facility] Estimation of creatinine zach aranceOrdered By: Yang Smiley on 09-07-2024 Estimated Creatinine Clearance Calc 56.57 ml/min 50-250 [facility] GFR/1.73 sq M.predicted kaylan g non-blacks MDRD (S/P/Bld) [Vol rate/Area]Ordered By: Yang Smiley on 09-07-2024 Estimated GFR (MDRD) Non-Af Amer 66 >60 [facility] Comment on above: mL/min/1.73m2 CKD-EP I Creatinine Equation (2020) Glomerular filtration rate ( GFR) estimation/1.73 sq m using serum, plasma, or whole bOrdered By: Yang Smiley on 09-07-2024 GFR/1.73 sq M.predicted among non-blacks MDRD (S/P/Bld) [Vol rate/Area] 66 mL/min/{1.73_m2} >60 [facility] Comment on above: mL/min/1.73m2 CKD-EP I Creatinine Equation (2020) Hematocrit Auto (Bld) [Volum e fraction]Ordered By: Yang Smiley on 09-07-2024 Hematocrit (Bld) [Volume fraction] 40.0 % 37-47 [facility] Hemoglobin measurementOrdere d By: Yang Smiley on 09-07-2024 Hemoglobin (Bld) [Mass/Vol] 13.2 g/dL 12.0-15.0 [facility] Immature granulocytes/100 WB C Auto (Bld)Ordered By: Yang Smiley on 09-07-2024 Immature granulocytes/100 WBC (Bld) 0.500 % 0.0-0.9 [facility] Comment on above: IG% - Immature Granu locytes (promyelocytes, myelocytes and metamyelocytes) > 1% indicates that a LEFT SHIFT is Present. Lymphocytes Auto (Unsp spec) [#/Vol]Ordered By: Yang Smiley on 09-07-2024 Lymphocytes (Bld) [#/Vol] 0.59 10*3/uL Low 0.83-4.51 [facility] Lymphocytes/100 WBC Auto (Un sp spec)Ordered By: Yang Smiley on 09-07-2024 Lymphocytes/100 WBC (Bld) 4.9 % Low 19-41 [facility] MCV (mean corpuscular volume ) determinationOrdered By: Yang Smiley on 09-07-2024 MCV (RBC) [Entitic vol] 98.0 fL 81-99 [facility] Mean corpuscular hemoglobin (MCH) determinationOrdered By: Yang Smiley on 09-07-2024 MCH (RBC) [Entitic mass] 32.4 pg High 27.0-32.0 [facility] Mean corpuscular hemoglobin concentration (MCHC) determinationOrdered By: Yang Smiley on 09-07-2024 MCHC (RBC) [Mass/Vol] 33.0 g/dL 32-36 [facility] Mean platelet volume determi nationOrdered By: Yang Smiley on 09-07-2024 Platelet mean volume (Bld) [Entitic vol] 9.9 fL 6.2-12.0 [facility] Monocyte percentageOrdered B y: Yang Smiley on 09-07-2024 Monocytes/100 WBC (Bld) 7.4 % 0-10 [facility] Neutrophil percentageOrdered By: Yang Smiley on 09-07-2024 Neutrophils/100 WBC (Bld) 87.1 % High 47-70 [facility] Nucleated red blood cell per centageOrdered By: Yang Smiley on 09-07-2024 Nucleated RBC/100 WBC (Bld) [Ratio] 0 % 0-5 [facility] Platelet countOrdered By: St rboerto carlos Smiley on 09-07-2024 Platelets (Bld) [#/Vol] 180 10*3/uL 150-450 [facility] Potassium (Unsp spec) [Mass/ Vol]Ordered By: Yang Smiley on 09-07-2024 Potassium [Moles/Vol] 3.2 mmol/L Low 3.3-5.1 [facility] Comment on above: Hemolysis present, R esults could be affected. Potassium measurement (mass/ volume)Ordered By: Yang Smiley on 09-07-2024 Potassium (Unsp spec) [Mass/Vol] 3.2 mmol/L Low 3.3-5.1 [facility] Comment on above: Hemolysis present, R esults could be affected. RBC Auto (Bld) [#/Vol]Ordere d By: Yang Smiley on 09-07-2024 RBC (Bld) [#/Vol] 4.08 10*6/uL Low 4.2-5.4 [facility] Serum creatinine measurement (mass/volume)Ordered By: Yang Smiley on 09-07-2024 Creatinine [Mass/Vol] 0.93 mg/dL 0.70-1.20 [facility] Serum glucose measurement (m ass/volume)Ordered By: Yang Smiley on 09-07-2024 Glucose [Mass/Vol] 146 mg/dL High 70-99 [facility] Serum or plasma calcium tommy urement (mass/volume)Ordered By: Yang Smiley on 09-07-2024 Calcium [Mass/Vol] 8.2 mg/dL 7.6-11.0 [facility] Serum or plasma urea nitroge n measurement (mass/volume)Ordered By: Yang Smiley on 09-07-2024 Urea nitrogen [Mass/Vol] 16 mg/dL 4-19 [facility] Sodium levelOrdered By: Sea Smiley on 09-07-2024 Sodium [Moles/Vol] 137 mmol/L 133-145 [facility] White blood cell (WBC) count Ordered By: Yang Smiley on 09-07-2024 WBC (Bld) [#/Vol] 12.0 10*3/uL High 4.4-11.0 [facility] Abdomen/Pelvis W IV Cont ONL Yon 09-06-2024 Abdomen/Pelvis W IV Cont ONLY Normal [facility] Absolute neutrophil countOrd ered By: Donovan Vora on 09-06-2024 Neutrophils (Bld) [#/Vol] 7.2 10*3/uL 2.0-7.7 [facility] Anion gap in Serum or Plasma Ordered By: Donovan Vora on 09-06-2024 Anion gap [Moles/Vol] 13 mmol/L 11-06 [facility] BUN/creatinine ratioOrdered By: Donovan Vora on 09-06-2024 Urea nitrogen/Creatinine [Mass ratio] 15.0 mg/mg - [facility] Basophil percentageOrdered B y: Donovan Vora on 09-06-2024 Basophils/100 WBC (Bld) 0.5 % 0-1 [facility] Bilirubin Test strip Ql (U)O rdered By: Donovan Vora on 09-06-2024 Bilirubin Ql (U) Negative Negative [facility] Bilirubin, totalOrdered By: Donovan Vora on 09-06-2024 Bilirubin [Mass/Vol] 1.04 mg/dL 0.00-1.30 [facility] CBC W/Diff, Automatedon 08-23 Absolute Lymph 0.67 X10 3/uL Low 0.83-4.51 [facility] Comment on above: Performed By: #### L 100.0100, L500.4050, L501.2450 ####[facility] [address] [place], [address] Absolute Neut 7.2 X10 3/uL Normal 2.0-7.7 [facility] Comment on above: Performed By: #### L 100.0100, L500.4050, L501.2450 ####[facility] [address] [place], [address] Basophils/100 WBC (Bld) 0.5 % Normal 0-1 [facility] Comment on above: Performed By: #### L 100.0100, L500.4050, L501.2450 ####[facility] [address] [place], [address] Eosinophils/100 WBC (Bld) 2.4 % Normal 0-5 [facility] Comment on above: Performed By: #### L 100.0100, L500.4050, L501.2450 ####[facility] [address] [place], [address] Erythrocyte distribution width (RBC) [Ratio] 16.6 % High 11.6-14.6 [facility] Comment on above: Performed By: #### L 100.0100, L500.4050, L501.2450 ####[facility] [address] [place], [address] Hematocrit (Bld) [Volume fraction] 45.9 % Normal 37-47 [facility] Comment on above: Performed By: #### L 100.0100, L500.4050, L501.2450 ####[facility] [address] [place], [address] Hemoglobin (Bld) [Mass/Vol] 15.3 g/dL High 12.0-15.0 [facility] Comment on above: Performed By: #### L 100.0100, L500.4050, L501.2450 ####[facility] [address] [place], [address] IG% 0.500 Normal 0.0-0.9 [facility] Comment on above: Result Comment: IG% - Immature Granulocytes (promyelocytes, myelocytes andmetamyelocytes) > 1% indicates that a LEFT SHIFT is Present. Performed By: #### L 100.0100, L500.4050, L501.2450 ####[facility] [address] [place], [address] Lymphocytes/100 WBC (Bld) 7.7 % Low 19-41 [facility] Comment on above: Performed By: #### L 100.0100, L500.4050, L501.2450 ####[facility] [address] [place], [address] MCH (RBC) [Entitic mass] 32.0 pg Normal 27.0-32.0 [facility] Comment on above: Performed By: #### L 100.0100, L500.4050, L501.2450 ####[facility] [address] [place], [address] MCHC (RBC) [Mass/Vol] 33.3 g/dL Normal 32-36 [facility] Comment on above: Performed By: #### L 100.0100, L500.4050, L501.2450 ####[facility] [address] [place], [address] MCV (RBC) [Entitic vol] 96.0 fL Normal 81-99 [facility] Comment on above: Performed By: #### L 100.0100, L500.4050, L501.2450 ####[facility] [address] [place], [address] Monocytes/100 WBC (Bld) 5.4 % Normal 0-10 [facility] Comment on above: Performed By: #### L 100.0100, L500.4050, L501.2450 ####[facility] [address] [place], [address] Neutrophils/100 WBC (Bld) 83.5 % High 47-70 [facility] Comment on above: Performed By: #### L 100.0100, L500.4050, L501.2450 ####[facility] [address] [place], [address] Nucleated RBC (Bld) [#/Vol] 0 10*3/uL Normal 0-5 [facility] Comment on above: Performed By: #### L 100.0100, L500.4050, L501.2450 ####[facility] [address] [place], [address] Platelet mean volume (Bld) [Entitic vol] 9.4 fL Normal 6.2-12.0 [facility] Comment on above: Performed By: #### L 100.0100, L500.4050, L501.2450 ####[facility] [address] [place], [address] Platelets (Bld) [#/Vol] 185 10*3/uL Normal 150-450 [facility] Comment on above: Performed By: #### L 100.0100, L500.4050, L501.2450 ####[facility] [address] [place], [address] RBC (Bld) [#/Vol] 4.78 10*6/uL Normal 4.2-5.4 [facility] Comment on above: Performed By: #### L 100.0100, L500.4050, L501.2450 ####[facility] [address] [place], [address] RDW SD 56.1 fl High 35.1-43.9 [facility] Comment on above: Performed By: #### L 100.0100, L500.4050, L501.2450 ####[facility] [address] [place], [address] WBC (Bld) [#/Vol] 8.7 10*3/uL Normal 4.4-11.0 [facility] Comment on above: Performed By: #### L 100.0100, L500.4050, L501.2450 ####[facility] [address] [place], [address] Carbon dioxide, total [Moles /volume] in Central venous bloodOrdered By: Donovan Vora on 09-06-2024 CO2 [Moles/Vol] 24.3 mmol/L 21.0-32.0 [facility] Chloride assayOrdered By: Aime Vora on 09-06-2024 Chloride [Moles/Vol] 102 mmol/L 98-108 [facility] Comprehensive Metabolic Prof ilon 09-06-2024 Albumin [Mass/Vol] 3.8 g/dL Normal 3.4-4.8 [facility] Comment on above: Performed By: #### L 100.0100, L500.4050, L501.2450 ####[facility] [address] [place], [address] Albumin/Globulin [Mass ratio] 1.3 {ratio} Normal 0.9-2.4 [facility] Comment on above: Performed By: #### L 100.0100, L500.4050, L501.2450 ####[facility] [address] [place], [address] ALK PHOS 137 U/L High 35-104 [facility] Comment on above: Performed By: #### L 100.0100, L500.4050, L501.2450 ####[facility] [address] [place], [address] ALT [Catalytic activity/Vol] U/L Normal <=34 [facility] Comment on above: Performed By: #### L 100.0100, L500.4050, L501.2450 ####[facility] [address] [place], [address] AST [Catalytic activity/Vol] 15 U/L Normal <=31 [facility] Comment on above: Performed By: #### L 100.0100, L500.4050, L501.2450 ####[facility] [address] [place], [address] Bilirubin [Mass/Vol] 1.04 mg/dL Normal 0.00-1.30 [facility] Comment on above: Performed By: #### L 100.0100, L500.4050, L501.2450 ####[facility] [address] [place], [address] BUN/CRE 15.0 RATIO Normal 10-20 [facility] Comment on above: Performed By: #### L 100.0100, L500.4050, L501.2450 ####[facility] [address] [place], [address] Calcium [Mass/Vol] 9.1 mg/dL Normal 7.6-11.0 [facility] Comment on above: Performed By: #### L 100.0100, L500.4050, L501.2450 ####[facility] [address] [place], [address] Chloride [Moles/Vol] 102 mmol/L Normal 98-108 [facility] Comment on above: Performed By: #### L 100.0100, L500.4050, L501.2450 ####[facility] [address] [place], [address] CO2 [Moles/Vol] 24.3 mmol/L Normal 21.0-32.0 [facility] Comment on above: Performed By: #### L 100.0100, L500.4050, L501.2450 ####[facility] [address] [place], [address] Creatinine [Mass/Vol] 0.81 mg/dL Normal 0.70-1.20 [facility] Comment on above: Performed By: #### L 100.0100, L500.4050, L501.2450 ####[facility] [address] [place], [address] ECRCL 59.64 ml/min Normal 50-250 [facility] Comment on above: Performed By: #### L 100.0100, L500.4050, L501.2450 ####[facility] [address] [place], [address] GAP 13 Normal 5-15 [facility] Comment on above: Performed By: #### L 100.0100, L500.4050, L501.2450 ####[facility] [address] [place], [address] GFR/1.73 sq M.predicted among non-blacks MDRD (S/P/Bld) [Vol rate/Area] 78 mL/min/{1.73_m2} Normal >60 [facility] Comment on above: Result Comment: mL/m in/1.73m2 CKD-EPI Creatinine Equation (2020) Performed By: #### L 100.0100, L500.4050, L501.2450 ####[facility] [address] [place], [address] Globulin (S) [Mass/Vol] 3.0 g/dL Normal 2.2-4.2 [facility] Comment on above: Performed By: #### L 100.0100, L500.4050, L501.2450 ####[facility] [address] [place], [address] Glucose [Mass/Vol] 95 mg/dL Normal 70-99 [facility] Comment on above: Performed By: #### L 100.0100, L500.4050, L501.2450 ####[facility] [address] [place], [address] Potassium [Moles/Vol] 3.4 mmol/L Normal 3.3-5.1 [facility] Comment on above: Performed By: #### L 100.0100, L500.4050, L501.2450 ####[facility] [address] [place], [address] Sodium [Moles/Vol] 140 mmol/L Normal 133-145 [facility] Comment on above: Performed By: #### L 100.0100, L500.4050, L501.2450 ####[facility] [address] [place], [address] T PROT 6.8 g/dL Normal 5.9-8.4 [facility] Comment on above: Performed By: #### L 100.0100, L500.4050, L501.2450 ####[facility] [address] [place], [address] Urea nitrogen [Mass/Vol] 12 mg/dL Normal 4-19 [facility] Comment on above: Performed By: #### L 100.0100, L500.4050, L501.2450 ####[facility] [address] [place], [place], [id number] Emergency Department Summary on 09-06-2024 Emergency Department Summary Normal [facility] Eosinophil percentageOrdered By: Donovan Vora on 09-06-2024 Eosinophils/100 WBC (Bld) 2.4 % 0-5 [facility] Epithelial cells.squamous LM Ql (Urine sed)Ordered By: Donovan Vora on 09-06-2024 Epithelial cells.squamous LM.HPF (Urine sed) [#/Area] 0 /[HPF] 5-10 [facility] Erythrocyte distribution wid th ratioOrdered By: Donovan Vora on 09-06-2024 Erythrocyte distribution width (RBC) [Ratio] 16.6 % High 11.6-14.6 [facility] Erythrocyte distribution wid th standard deviationOrdered By: Donovan Vora on 09-06-2024 Erythrocyte distribution width (RBC) [Entitic vol] 56.1 fL High 35.1-43.9 [facility] Estimation of creatinine zach aranceOrdered By: Donovan Vora on 09-06-2024 Estimated Creatinine Clearance Calc 59.64 ml/min 50-250 [facility] GFR/1.73 sq M.predicted kaylan g non-blacks MDRD (S/P/Bld) [Vol rate/Area]Ordered By: Donovan Vora on 09-06-2024 Estimated GFR (MDRD) Non-Af Amer 78 >60 [facility] Comment on above: mL/min/1.73m2 CKD-EP I Creatinine Equation (2020) Glucose Ql (U)Ordered By: Aime Vora on 09-06-2024 Urine Glucose (UA) Normal mg/dl Normal [facility] Hematocrit Auto (Bld) [Volum e fraction]Ordered By: Donovan Vora on 09-06-2024 Hematocrit (Bld) [Volume fraction] 45.9 % 37-47 [facility] Hemoglobin measurementOrdere d By: Donovan Vora on 09-06-2024 Hemoglobin (Bld) [Mass/Vol] 15.3 g/dL High 12.0-15.0 [facility] Immature granulocytes/100 WB C Auto (Bld)Ordered By: Donovan Vora on 09-06-2024 Immature granulocytes/100 WBC (Bld) 0.500 % 0.0-0.9 [facility] Comment on above: IG% - Immature Granu locytes (promyelocytes, myelocytes and metamyelocytes) > 1% indicates that a LEFT SHIFT is Present. Ketones Test strip Ql (U)Ord ered By: Donovan Vora on 09-06-2024 Ketones Ql (U) Negative Negative [facility] Laboratory - Chemistry and C hemistry - challengeOrdered By: Donovan Vora on 09-06-2024 AST [Catalytic activity/Vol] 15 U/L <32 [facility] Lipaseon 09-06-2024 Lipase [Catalytic activity/Vol] 86 U/L High 13-75 [facility] Comment on above: Result Comment: Feliberto mariee note:LIPASE revised reference range effective 22.New Lipase methodology. Expected to produce lower valuesthan the previous assay method.NEW Reference Range: 13 - 75 U/L Performed By: #### L 100.0100, L500.4050, L501.2450 ####[facility] [address] [place], [place], [id number] Lipase measurementOrdered By : Donovan Vora on 09-06-2024 Lipase [Catalytic activity/Vol] 86 U/L High 13-75 [facility] Comment on above: Please note:LIPASE r evised reference range effective 22. New Lipase methodology. Expected to produce lower values than the previous assay method. NEW Reference Range: 13 - 75 U/L Lymphocytes Auto (Unsp spec) [#/Vol]Ordered By: Donovan Vora on 09-06-2024 Lymphocytes (Bld) [#/Vol] 0.67 10*3/uL Low 0.83-4.51 [facility] Lymphocytes/100 WBC Auto (Un sp spec)Ordered By: Donovan Vora on 09-06-2024 Lymphocytes/100 WBC (Bld) 7.7 % Low 19-41 [facility] MCV (mean corpuscular volume ) determinationOrdered By: Donovan Vora on 09-06-2024 MCV (RBC) [Entitic vol] 96.0 fL 81-99 [facility] MR/POSTOP.ANEon 09-06-2024 MR/POSTOP.ANE Normal [facility] MR/VKKHEAUX2hy 09-06-2024 MR/POSTOPAN2 Normal [facility] Mean corpuscular hemoglobin (MCH) determinationOrdered By: Donovan Vora on 09-06-2024 MCH (RBC) [Entitic mass] 32.0 pg 27.0-32.0 [facility] Mean corpuscular hemoglobin concentration (MCHC) determinationOrdered By: Donovan Vora on 09-06-2024 MCHC (RBC) [Mass/Vol] 33.3 g/dL 32-36 [facility] Mean platelet volume determi nationOrdered By: Donovan Vora on 09-06-2024 Platelet mean volume (Bld) [Entitic vol] 9.4 fL 6.2-12.0 [facility] Microscopic analysis of urin e for red blood cells (RBC)Ordered By: Donovan Vora on 09-06-2024 Microscopic analysis of urine for red blood cells (RBC) 0-5 SEEN /hpf 0-5 [facility] Urine RBC 0-5 SEEN /hpf 0-5 [facility] Monocyte percentageOrdered B y: Donovan Vora on 09-06-2024 Monocytes/100 WBC (Bld) 5.4 % 0-10 [facility] Mucus LM Ql (Urine sed)Order ed By: Donovan Vora on 09-06-2024 Mucus Ql (Urine sed) 0 SEEN /hpf [facility] Neutrophil percentageOrdered By: oDnovan Vora on 09-06-2024 Neutrophils/100 WBC (Bld) 83.5 % High 47-70 [facility] Nitrite Test strip Ql (U)Ord ered By: Donovan Vora on 09-06-2024 Nitrite Ql (U) Positive High Negative [facility] Nucleated red blood cell per centageOrdered By: Donovan Vora on 09-06-2024 Nucleated RBC/100 WBC (Bld) [Ratio] 0 % 0-5 [facility] Operative Reporton Operative Report Normal [facility] Platelet countOrdered By: Aime Vora on 09-06-2024 Platelets (Bld) [#/Vol] 185 10*3/uL 150-450 [facility] Potassium (Unsp spec) [Mass/ Vol]Ordered By: Donovan Vora on 09-06-2024 Potassium [Moles/Vol] 3.4 mmol/L 3.3-5.1 [facility] Protein Test strip Ql (U)Ord ered By: Donovan Vora on 09-06-2024 Protein Ql (U) 30 mg/dl High Negative [facility] RBC Auto (Bld) [#/Vol]Ordere d By: Donovan Vora on 09-06-2024 RBC (Bld) [#/Vol] 4.78 10*6/uL 4.2-5.4 [facility] Serum creatinine measurement (mass/volume)Ordered By: Donovan Vora on 09-06-2024 Creatinine [Mass/Vol] 0.81 mg/dL 0.70-1.20 [facility] Serum globulin measurementOr dered By: Donovan Vora on 09-06-2024 Globulin (S) [Mass/Vol] 3.0 g/dL 2.2-4.2 [facility] Serum glucose measurement (m ass/volume)Ordered By: Donovan Vora on 09-06-2024 Glucose [Mass/Vol] 95 mg/dL 70-99 [facility] Serum or plasma alanine fregoso otransferase (ALT) measurementOrdered By: Donovan Vora on 09-06-2024 ALT [Catalytic activity/Vol] U/L <35 [facility] Serum or plasma albumin tommy urement (mass/volume)Ordered By: Donovan Vora on 09-06-2024 Albumin [Mass/Vol] 3.8 g/dL 3.4-4.8 [facility] Serum or plasma albumin/glob ulin mass ratioOrdered By: Donovan Vora on 09-06-2024 Albumin/Globulin [Mass ratio] 1.3 {ratio} 0.9-2.4 [facility] Serum or plasma alkaline luciana sphatase measurementOrdered By: Donovan Vora on 09-06-2024 ALP [Catalytic activity/Vol] 137 U/L High 35-104 [facility] Serum or plasma calcium tommy urement (mass/volume)Ordered By: Donovan Vora on 09-06-2024 Calcium [Mass/Vol] 9.1 mg/dL 7.6-11.0 [facility] Serum or plasma urea nitroge n measurement (mass/volume)Ordered By: Donovan Vora on 09-06-2024 Urea nitrogen [Mass/Vol] 12 mg/dL 4-19 [facility] Sodium levelOrdered By: Donovan Vora on 09-06-2024 Sodium [Moles/Vol] 140 mmol/L 133-145 [facility] Squamous epithelial cells de tection in urine sediment by light microscopyOrdered By: Donovan Vora on 09-06-2024 Epithelial cells.squamous LM Ql (Urine sed) 0-5 SEEN /hpf 5-10 [facility] Surgery Specimen Level IIIon 09-06-2024 Surgery Specimen Level III Normal [facility] Comment on above: Performed By: #### P SUIII ####[facility] [address] [place], [place], [id number] Total proteinOrdered By: Marah Vora on 09-06-2024 Protein [Mass/Vol] 6.8 g/dL 5.9-8.4 [facility] Urinalysis, Completeon 09-06 BACTERIA 4+ /hpf Normal None Seen [facility] Comment on above: Order Comment: CLEAN CATCH Performed By: #### L 400.0001 ####[facility] [address] [place], [address] EPI,SQUAMOUS 0-5 SEEN Normal 5-10 [facility] Comment on above: Order Comment: CLEAN CATCH Performed By: #### L 400.0001 ####[facility] [address] [place], [place], [id number] RBC 0-5 SEEN Normal 0-5 [facility] Comment on above: Order Comment: CLEAN CATCH Performed By: #### L 400.0001 ####[facility] [address] [place], [place], [id number] WBC 50-100 SEEN Normal 0-5 [facility] Comment on above: Order Comment: CLEAN CATCH Performed By: #### L 400.0001 ####[facility] [address] [place], [place], [id number] Mucus Ql (Urine sed) 0 SEEN Normal [facility] Comment on above: Order Comment: CLEAN CATCH Performed By: #### L 400.0001 ####[facility] [address] [place], [place], [id number] Urine blood detectionOrdered By: Donovan Vora on 09-06-2024 Urine Occult Blood 25 /ul High Negative [facility] Urine clarityOrdered By: Marah Vora on 09-06-2024 Clarity (U) Sl. Cloudy Clear [facility] Urine color determinationOrd ered By: Donovan Vora on 09-06-2024 Color (U) Yellow Yellow [facility] Urine cultureOrdered By: Marah Vora on 09-06-2024 Bacteria identified Cx Nom (U) Escherichia coli Abnormal [facility] Urine glucose detectionOrder ed By: Donovan Vora on 09-06-2024 Glucose Ql (U) Normal mg/dl Normal [facility] Urine leukocyte esterase det ection by dipstickOrdered By: Donovan Vora on 09-06-2024 Leukocyte esterase Test strip Ql (U) 500 /ul High Negative [facility] Urine pHOrdered By: Donovan calderon on 09-06-2024 pH (U) 6.0 [pH] 5.0 - 8.0 [facility] Urine sediment bacteria coun t by microscopy (number/high power field)Ordered By: Donovan Vora on 09-06-2024 Bacteria LM.HPF (Urine sed) [#/Area] 4 /[HPF] None Seen [facility] Urine specific gravity measu rementOrdered By: Donovan Vora on 09-06-2024 Specific gravity (U) [Rel density] 1.015 1.002-1.030 [facility] Urine urobilinogen measureme ntOrdered By: Donovan Vora on 09-06-2024 Urobilinogen Ql (U) 1 mg/dl High Normal [facility] Urobilinogen Ql (U)Ordered B y: Donovan Vora on 09-06-2024 Urobilinogen (U) [Mass/Vol] 1 mg/dL High Normal [facility] White blood cell (WBC) count Ordered By: Donovan Vora on 09-06-2024 WBC (Bld) [#/Vol] 8.7 10*3/uL 4.4-11.0 [facility] White blood cell countOrdere d By: Donovan Vora on 09-06-2024 Urine WBC 50-100 SEEN /hpf 0-5 [facility] White blood cell count 50-100 SEEN /hpf 0-5 [facility] Carotid Duplex Ultrasoundon 09-03-2024 Carotid Duplex Ultrasound Normal [facility] MR/BMS.IMBon 07-28-2024 MR/BMS.IMB Normal [facility] Chest without Contraston Chest without Contrast Normal [facility] CNOVon 07-09-2024 CNOV Normal [facility] [id number] DOrdered By: Kadie Dey on 06-30-2024 Vitamin D 25-Hydroxy 49.9 ng/mL [facility] Comment on above: Vitamin D 25(OH) Sta tus Range Deficiency <20 ng/mL (50nmol/L) Insufficiency 20 - 30 ng/mL (50 - 75 nmol/L) Sufficiency 30 - 100 ng/mL (75 - 250 nmol/L) Toxicity >100 ng/mL (>250 nmol/L) Absolute neutrophil countOrd ered By: Jannet Dey on 06-30-2024 Neutrophils (Bld) [#/Vol] 4.9 10*3/uL 2.0-7.7 [facility] Albumin to globulin ratioOrd ered By: Jannet Dey on 06-30-2024 Albumin/Globulin [Mass ratio] 0.8 {ratio} Low 0.9-2.4 [facility] Basophil percentageOrdered B y: Jannet Dey on 06-30-2024 Basophils/100 WBC (Bld) 0.7 % 0-1 [facility] Bilirubin, totalOrdered By: Jannet Dey on 06-30-2024 Bilirubin [Mass/Vol] 0.50 mg/dL 0.20-1.00 [facility] Comment on above: For patients on eltr ombopag therapy, use of Dimension Merlin TBIL is not recommended. Blood urea nitrogen (BUN)/cr eatinine ratioOrdered By: Jannet Dey on 06-30-2024 Urea nitrogen/Creatinine [Mass ratio] 10.7 mg/mg 10-20 [facility] CBC W/Diff, Automatedon Absolute Lymph 0.98 X10 3/uL Normal 0.83-4.51 [facility] Comment on above: Performed By: #### L 500.4100, L501.9520, L506.1000, L100.0100, L500.4050 ####[facility] [address] [place], [address] Absolute Neut 4.9 X10 3/uL Normal 2.0-7.7 [facility] Comment on above: Performed By: #### L 500.4100, L501.9520, L506.1000, L100.0100, L500.4050 ####[facility] [address] [place], [address] Basophils/100 WBC (Bld) 0.7 % Normal 0-1 [facility] Comment on above: Performed By: #### L 500.4100, L501.9520, L506.1000, L100.0100, L500.4050 ####[facility] [address] [place], [address] Eosinophils/100 WBC (Bld) 5.2 % High 0-5 [facility] Comment on above: Performed By: #### L 500.4100, L501.9520, L506.1000, L100.0100, L500.4050 ####[facility] [address] [place], [address] Erythrocyte distribution width (RBC) [Ratio] 14.2 % Normal 11.6-14.6 [facility] Comment on above: Performed By: #### L 500.4100, L501.9520, L506.1000, L100.0100, L500.4050 ####[facility] [address] [place], [address] Hematocrit (Bld) [Volume fraction] 37.4 % Normal 37-47 [facility] Comment on above: Performed By: #### L 500.4100, L501.9520, L506.1000, L100.0100, L500.4050 ####[facility] [address] [place], [address] Hemoglobin (Bld) [Mass/Vol] 12.0 g/dL Normal 12.0-15.0 [facility] Comment on above: Performed By: #### L 500.4100, L501.9520, L506.1000, L100.0100, L500.4050 ####[facility] [address] [place], [address] IG% 1.300 High 0.0-0.9 [facility] Comment on above: Result Comment: IG% - Immature Granulocytes (promyelocytes, myelocytes andmetamyelocytes) > 1% indicates that a LEFT SHIFT is Present. Performed By: #### L 500.4100, L501.9520, L506.1000, L100.0100, L500.4050 ####[facility] [address] [place], [address] Lymphocytes/100 WBC (Bld) 14.1 % Low 19-41 [facility] Comment on above: Performed By: #### L 500.4100, L501.9520, L506.1000, L100.0100, L500.4050 ####[facility] [address] [place], [address] MCH (RBC) [Entitic mass] 29.5 pg Normal 27.0-32.0 [facility] Comment on above: Performed By: #### L 500.4100, L501.9520, L506.1000, L100.0100, L500.4050 ####[facility] [address] [place], [address] MCHC (RBC) [Mass/Vol] 32.1 g/dL Normal 32-36 [facility] Comment on above: Performed By: #### L 500.4100, L501.9520, L506.1000, L100.0100, L500.4050 ####[facility] [address] [place], [address] MCV (RBC) [Entitic vol] 91.9 fL Normal 81-99 [facility] Comment on above: Performed By: #### L 500.4100, L501.9520, L506.1000, L100.0100, L500.4050 ####[facility] [address] [place], [address] Monocytes/100 WBC (Bld) 7.9 % Normal 0-10 [facility] Comment on above: Performed By: #### L 500.4100, L501.9520, L506.1000, L100.0100, L500.4050 ####[facility] [address] [place], [address] Neutrophils/100 WBC (Bld) 70.8 % High 47-70 [facility] Comment on above: Performed By: #### L 500.4100, L501.9520, L506.1000, L100.0100, L500.4050 ####[facility] [address] [place], [address] Nucleated RBC (Bld) [#/Vol] 0 10*3/uL Normal 0-5 [facility] Comment on above: Performed By: #### L 500.4100, L501.9520, L506.1000, L100.0100, L500.4050 ####[facility] [address] [place], [address] Platelet mean volume (Bld) [Entitic vol] 10.3 fL Normal 6.2-12.0 [facility] Comment on above: Performed By: #### L 500.4100, L501.9520, L506.1000, L100.0100, L500.4050 ####[facility] [address] [place], [address] Platelets (Bld) [#/Vol] 408 10*3/uL Normal 150-450 [facility] Comment on above: Performed By: #### L 500.4100, L501.9520, L506.1000, L100.0100, L500.4050 ####[facility] [address] [place], [address] RBC (Bld) [#/Vol] 4.07 10*6/uL Low 4.2-5.4 [facility] Comment on above: Performed By: #### L 500.4100, L501.9520, L506.1000, L100.0100, L500.4050 ####[facility] [address] [place], [address] RDW SD 47.7 fl High 35.1-43.9 [facility] Comment on above: Performed By: #### L 500.4100, L501.9520, L506.1000, L100.0100, L500.4050 ####[facility] [address] [place], [address] WBC (Bld) [#/Vol] 7.0 10*3/uL Normal 4.4-11.0 [facility] Comment on above: Performed By: #### L 500.4100, L501.9520, L506.1000, L100.0100, L500.4050 ####[facility] [address] [place], [address] Absolute Neut Normal 2.0-7.7 [facility] Comment on above: Result Comment: EORD ERS NOW AND OCTOBER. THEY ARE DUPLICATES. I CX THESE. Performed By: #### L 500.4050, L100.0100 ####[facility] [address] [place], [address] HCT Normal 37-47 [facility] Comment on above: Result Comment: EORD ERS NOW AND OCTOBER. THEY ARE DUPLICATES. I CX THESE. Performed By: #### L 500.4050, L100.0100 ####[facility] [address] [place], [address] HGB Normal 12.0-15.0 [facility] Comment on above: Result Comment: EORD ERS NOW AND OCTOBER. THEY ARE DUPLICATES. I CX THESE. Performed By: #### L 500.4050, L100.0100 ####[facility] [address] [place], [address] MCH Normal 27.0-32.0 [facility] Comment on above: Result Comment: EORD ERS NOW AND OCTOBER. THEY ARE DUPLICATES. I CX THESE. Performed By: #### L 500.4050, L100.0100 ####[facility] [address] [place], [address] MCHC Normal 32-36 [facility] Comment on above: Result Comment: EORD ERS NOW AND OCTOBER. THEY ARE DUPLICATES. I CX THESE. Performed By: #### L 500.4050, L100.0100 ####[facility] [address] [place], [address] MCV Normal 81-99 [facility] Comment on above: Result Comment: EORD ERS NOW AND OCTOBER. THEY ARE DUPLICATES. I CX THESE. Performed By: #### L 500.4050, L100.0100 ####[facility] [address] [place], [address] NEUT% Normal 47-70 [facility] Comment on above: Result Comment: EORD ERS NOW AND OCTOBER. THEY ARE DUPLICATES. I CX THESE. Performed By: #### L 500.4050, L100.0100 ####[facility] [address] [place], [address] PLT Normal 150-450 [facility] Comment on above: Result Comment: EORD ERS NOW AND OCTOBER. THEY ARE DUPLICATES. I CX THESE. Performed By: #### L 500.4050, L100.0100 ####[facility] [address] [place], [address] RBC Normal 4.2-5.4 [facility] Comment on above: Result Comment: EORD ERS NOW AND OCTOBER. THEY ARE DUPLICATES. I CX THESE. Performed By: #### L 500.4050, L100.0100 ####[facility] [address] [place], [address] RDW CV Normal 11.6-14.6 [facility] Comment on above: Result Comment: EORD ERS NOW AND OCTOBER. THEY ARE DUPLICATES. I CX THESE. Performed By: #### L 500.4050, L100.0100 ####[facility] [address] [place], [address] RDW SD Normal 35.1-43.9 [facility] Comment on above: Result Comment: EORD ERS NOW AND OCTOBER. THEY ARE DUPLICATES. I CX THESE. Performed By: #### L 500.4050, L100.0100 ####[facility] [address] [place], [address] WBC Normal 4.4-11.0 [facility] Comment on above: Result Comment: EORD ERS NOW AND OCTOBER. THEY ARE DUPLICATES. I CX THESE. Performed By: #### L 500.4050, L100.0100 ####[facility] [address] [place], [address] Carbon dioxide measurementOr dered By: Jannet Dey on 06-30-2024 CO2 [Moles/Vol] 27.0 mmol/L 21.0-32.0 [facility] Chest PA and Lateralon 06-30 Chest PA and Lateral Normal [facility] Chloride measurementOrdered By: Jannet Dey on 06-30-2024 Chloride [Moles/Vol] 104 mmol/L 98-107 [facility] Comprehensive Metabolic Prof ilon 06-30-2024 Albumin [Mass/Vol] 3.3 g/dL Normal 3.2-5.0 [facility] Comment on above: Order Comment: PT MIDDLETON D ORDERS FOR NOW,AND OCTOBER. SO I DID THEM ALL. CANCELEDTHE NOW ORDERS BECAUSE THEY ARE DUPS.PT SAID TO DO IT ALL. SHE DID HAVE A 1/4 OF A BAGEL. Performed By: #### L 500.4100, L501.9520, L506.1000, L100.0100, L500.4050 ####[facility] [address] [place], [address] Albumin/Globulin [Mass ratio] 0.8 {ratio} Low 0.9-2.4 [facility] Comment on above: Order Comment: PT MIDDLETON D ORDERS FOR NOW,AND OCTOBER. SO I DID THEM ALL. CANCELEDTHE NOW ORDERS BECAUSE THEY ARE DUPS.PT SAID TO DO IT ALL. SHE DID HAVE A 1/4 OF A BAGEL. Performed By: #### L 500.4100, L501.9520, L506.1000, L100.0100, L500.4050 ####[facility] [address] [place], [address] ALK P 98 U/L Normal 45-117 [facility] Comment on above: Order Comment: PT MIDDLETON D ORDERS FOR NOW,AND OCTOBER. SO I DID THEM ALL. CANCELEDTHE NOW ORDERS BECAUSE THEY ARE DUPS.PT SAID TO DO IT ALL. SHE DID HAVE A 1/4 OF A BAGEL. Performed By: #### L 500.4100, L501.9520, L506.1000, L100.0100, L500.4050 ####[facility] [address] [place], [address] ALT [Catalytic activity/Vol] 9 U/L Low 13-56 [facility] Comment on above: Order Comment: PT MIDDLETON D ORDERS FOR NOW,AND OCTOBER. SO I DID THEM ALL. CANCELEDTHE NOW ORDERS BECAUSE THEY ARE DUPS.PT SAID TO DO IT ALL. SHE DID HAVE A 1/4 OF A BAGEL. Performed By: #### L 500.4100, L501.9520, L506.1000, L100.0100, L500.4050 ####[facility] [address] [place], [address] AST [Catalytic activity/Vol] 15 U/L Normal 15-37 [facility] Comment on above: Order Comment: PT MIDDLETON D ORDERS FOR NOW,AND OCTOBER. SO I DID THEM ALL. CANCELEDTHE NOW ORDERS BECAUSE THEY ARE DUPS.PT SAID TO DO IT ALL. SHE DID HAVE A 1/4 OF A BAGEL. Performed By: #### L 500.4100, L501.9520, L506.1000, L100.0100, L500.4050 ####[facility] [address] [place], [address] Bilirubin [Mass/Vol] 0.50 mg/dL Normal 0.20-1.00 [facility] Comment on above: Order Comment: PT MIDDLETON D ORDERS FOR NOW,AND OCTOBER. SO I DID THEM ALL. CANCELEDTHE NOW ORDERS BECAUSE THEY ARE DUPS.PT SAID TO DO IT ALL. SHE DID HAVE A 1/4 OF A BAGEL. Result Comment: For patients on eltrombopag therapy, use of Dimension Merlin TBIL is not recommended. Performed By: #### L 500.4100, L501.9520, L506.1000, L100.0100, L500.4050 ####[facility] [address] [place], [address] BUN/CRE 10.7 RATIO Normal 10-20 [facility] Comment on above: Order Comment: PT MIDDLETON D ORDERS FOR NOW,AND OCTOBER. SO I DID THEM ALL. CANCELEDTHE NOW ORDERS BECAUSE THEY ARE DUPS.PT SAID TO DO IT ALL. SHE DID HAVE A 1/4 OF A BAGEL. Performed By: #### L 500.4100, L501.9520, L506.1000, L100.0100, L500.4050 ####[facility] [address] [place], [address] CA,Total 9.7 mg/dL Normal 8.5-10.1 [facility] Comment on above: Order Comment: PT MIDDLETON D ORDERS FOR NOW,AND OCTOBER. SO I DID THEM ALL. CANCELEDTHE NOW ORDERS BECAUSE THEY ARE DUPS.PT SAID TO DO IT ALL. SHE DID HAVE A 1/4 OF A BAGEL. Performed By: #### L 500.4100, L501.9520, L506.1000, L100.0100, L500.4050 ####[facility] [address] [place], [address] Chloride [Moles/Vol] 104 mmol/L Normal 98-107 [facility] Comment on above: Order Comment: PT MIDDLETON D ORDERS FOR NOW,AND OCTOBER. SO I DID THEM ALL. CANCELEDTHE NOW ORDERS BECAUSE THEY ARE DUPS.PT SAID TO DO IT ALL. SHE DID HAVE A 1/4 OF A BAGEL. Performed By: #### L 500.4100, L501.9520, L506.1000, L100.0100, L500.4050 ####[facility] [address] [place], [address] CO2 [Moles/Vol] 27.0 mmol/L Normal 21.0-32.0 [facility] Comment on above: Order Comment: PT MIDDELTON D ORDERS FOR NOW,AND OCTOBER. SO I DID THEM ALL. CANCELEDTHE NOW ORDERS BECAUSE THEY ARE DUPS.PT SAID TO DO IT ALL. SHE DID HAVE A 1/4 OF A BAGEL. Performed By: #### L 500.4100, L501.9520, L506.1000, L100.0100, L500.4050 ####[facility] [address] [place], [address] Creatinine [Mass/Vol] 1.03 mg/dL High 0.55-1.02 [facility] Comment on above: Order Comment: PT MIDDLETON D ORDERS FOR NOW,AND OCTOBER. SO I DID THEM ALL. CANCELEDTHE NOW ORDERS BECAUSE THEY ARE DUPS.PT SAID TO DO IT ALL. SHE DID HAVE A 1/4 OF A BAGEL. Result Comment: The validity of the calculated GFR GFRAA in patients over70 years has not been determined. Clinical correlation isessential. Performed By: #### L 500.4100, L501.9520, L506.1000, L100.0100, L500.4050 ####[facility] [address] [place], [address] EST GFR - AA 68 mL/min Normal >60 [facility] Comment on above: Order Comment: PT MIDDLETON D ORDERS FOR NOW,AND OCTOBER. SO I DID THEM ALL. CANCELEDTHE NOW ORDERS BECAUSE THEY ARE DUPS.PT SAID TO DO IT ALL. SHE DID HAVE A 1/4 OF A BAGEL. Result Comment: Afri can Lithuanian GFR Calc Performed By: #### L 500.4100, L501.9520, L506.1000, L100.0100, L500.4050 ####[facility] [address] [place], [address] GAP 10 Normal 5-15 [facility] Comment on above: Order Comment: PT MIDDLETON D ORDERS FOR NOW,AND OCTOBER. SO I DID THEM ALL. CANCELEDTHE NOW ORDERS BECAUSE THEY ARE DUPS.PT SAID TO DO IT ALL. SHE DID HAVE A 1/4 OF A BAGEL. Performed By: #### L 500.4100, L501.9520, L506.1000, L100.0100, L500.4050 ####[facility] [address] [place], [address] GFR/1.73 sq M.predicted among non-blacks MDRD (S/P/Bld) [Vol rate/Area] 56 mL/min/{1.73_m2} Low >60 [facility] Comment on above: Order Comment: PT MIDDLETON D ORDERS FOR NOW,AND OCTOBER. SO I DID THEM ALL. CANCELEDTHE NOW ORDERS BECAUSE THEY ARE DUPS.PT SAID TO DO IT ALL. SHE DID HAVE A 1/4 OF A BAGEL. Result Comment: Non- GFR Calc Performed By: #### L 500.4100, L501.9520, L506.1000, L100.0100, L500.4050 ####[facility] [address] [place], [address] Globulin (S) [Mass/Vol] 4.1 g/dL Normal 2.2-4.2 [facility] Comment on above: Order Comment: PT MIDDLETON D ORDERS FOR NOW,AND OCTOBER. SO I DID THEM ALL. CANCELEDTHE NOW ORDERS BECAUSE THEY ARE DUPS.PT SAID TO DO IT ALL. SHE DID HAVE A 1/4 OF A BAGEL. Performed By: #### L 500.4100, L501.9520, L506.1000, L100.0100, L500.4050 ####[facility] [address] [place], [address] Glucose [Mass/Vol] 74 mg/dL Normal 74-106 [facility] Comment on above: Order Comment: PT MIDDLETON D ORDERS FOR NOW,AND OCTOBER. SO I DID THEM ALL. CANCELEDTHE NOW ORDERS BECAUSE THEY ARE DUPS.PT SAID TO DO IT ALL. SHE DID HAVE A 1/4 OF A BAGEL. Performed By: #### L 500.4100, L501.9520, L506.1000, L100.0100, L500.4050 ####[facility] [address] [place], [address] Potassium [Moles/Vol] 2.8 mmol/L Low 3.5-5.1 [facility] Comment on above: Order Comment: PT MIDDLETON D ORDERS FOR NOW,AND OCTOBER. SO I DID THEM ALL. CANCELEDTHE NOW ORDERS BECAUSE THEY ARE DUPS.PT SAID TO DO IT ALL. SHE DID HAVE A 1/4 OF A BAGEL. Performed By: #### L 500.4100, L501.9520, L506.1000, L100.0100, L500.4050 ####[facility] [address] [place], [address] Sodium [Moles/Vol] 141 mmol/L Normal 136-145 [facility] Comment on above: Order Comment: PT MIDDLETON D ORDERS FOR NOW,AND OCTOBER. SO I DID THEM ALL. CANCELEDTHE NOW ORDERS BECAUSE THEY ARE DUPS.PT SAID TO DO IT ALL. SHE DID HAVE A 1/4 OF A BAGEL. Performed By: #### L 500.4100, L501.9520, L506.1000, L100.0100, L500.4050 ####[facility] [address] [place], [address] T PROT 7.4 g/dL Normal 6.4-8.2 [facility] Comment on above: Order Comment: PT MIDDLETON D ORDERS FOR NOW,AND OCTOBER. SO I DID THEM ALL. CANCELEDTHE NOW ORDERS BECAUSE THEY ARE DUPS.PT SAID TO DO IT ALL. SHE DID HAVE A 1/4 OF A BAGEL. Performed By: #### L 500.4100, L501.9520, L506.1000, L100.0100, L500.4050 ####[facility] [address] [place], [address] Urea nitrogen [Mass/Vol] 11 mg/dL Normal 7-18 [facility] Comment on above: Order Comment: PT MIDDLETON D ORDERS FOR NOW,AND OCTOBER. SO I DID THEM ALL. CANCELEDTHE NOW ORDERS BECAUSE THEY ARE DUPS.PT SAID TO DO IT ALL. SHE DID HAVE A 1/4 OF A BAGEL. Performed By: #### L 500.4100, L501.9520, L506.1000, L100.0100, L500.4050 ####[facility] [address] [place], [address] ALB Normal 3.2-5.0 [facility] Comment on above: Result Comment: EORD ERS NOW AND OCTOBER. THEY ARE DUPLICATES. I CX THESE. Performed By: #### L 500.4050, L100.0100 ####[facility] [address] [place], [address] ALK P Normal 45-117 [facility] Comment on above: Result Comment: EORD ERS NOW AND OCTOBER. THEY ARE DUPLICATES. I CX THESE. Performed By: #### L 500.4050, L100.0100 ####[facility] [address] [place], [address] ALT Normal 13-56 [facility] Comment on above: Result Comment: EORD ERS NOW AND OCTOBER. THEY ARE DUPLICATES. I CX THESE. Performed By: #### L 500.4050, L100.0100 ####[facility] [address] [place], [address] AST Normal 15-37 [facility] Comment on above: Result Comment: EORD ERS NOW AND OCTOBER. THEY ARE DUPLICATES. I CX THESE. Performed By: #### L 500.4050, L100.0100 ####[facility] [address] [place], [address] BUN Normal 7-18 [facility] Comment on above: Result Comment: EORD ERS NOW AND OCTOBER. THEY ARE DUPLICATES. I CX THESE. Performed By: #### L 500.4050, L100.0100 ####[facility] [address] [place], [address] BUN/CRE Normal 10-20 [facility] Comment on above: Result Comment: EORD ERS NOW AND OCTOBER. THEY ARE DUPLICATES. I CX THESE. Performed By: #### L 500.4050, L100.0100 ####[facility] [address] [place], [address] CA,Total Normal 8.5-10.1 [facility] Comment on above: Result Comment: EORD ERS NOW AND OCTOBER. THEY ARE DUPLICATES. I CX THESE. Performed By: #### L 500.4050, L100.0100 ####[facility] [address] [place], [address] CL Normal 98-107 [facility] Comment on above: Result Comment: EORD ERS NOW AND OCTOBER. THEY ARE DUPLICATES. I CX THESE. Performed By: #### L 500.4050, L100.0100 ####[facility] [address] [place], [address] CO2 Normal 21.0-32.0 [facility] Comment on above: Result Comment: EORD ERS NOW AND OCTOBER. THEY ARE DUPLICATES. I CX THESE. Performed By: #### L 500.4050, L100.0100 ####[facility] [address] [place], [address] CREAT,SERUM Normal 0.55-1.02 [facility] Comment on above: Result Comment: EORD ERS NOW AND OCTOBER. THEY ARE DUPLICATES. I CX THESE. Performed By: #### L 500.4050, L100.0100 ####[facility] [address] [place], [address] EST GFR Normal >60 [facility] Comment on above: Result Comment: EORD ERS NOW AND OCTOBER. THEY ARE DUPLICATES. I CX THESE. Performed By: #### L 500.4050, L100.0100 ####[facility] [address] [place], [address] EST GFR - AA Normal >60 [facility] Comment on above: Result Comment: EORD ERS NOW AND OCTOBER. THEY ARE DUPLICATES. I CX THESE. Performed By: #### L 500.4050, L100.0100 ####[facility] [address] [place], [address] GAP Normal 5-15 [facility] Comment on above: Result Comment: EORD ERS NOW AND OCTOBER. THEY ARE DUPLICATES. I CX THESE. Performed By: #### L 500.4050, L100.0100 ####[facility] [address] [place], [address] GLU Normal 74-106 [facility] Comment on above: Result Comment: EORD ERS NOW AND OCTOBER. THEY ARE DUPLICATES. I CX THESE. Performed By: #### L 500.4050, L100.0100 ####[facility] [address] [place], [address] Potassium Normal 3.5-5.1 [facility] Comment on above: Result Comment: EORD ERS NOW AND OCTOBER. THEY ARE DUPLICATES. I CX THESE. Performed By: #### L 500.4050, L100.0100 ####[facility] [address] [place], [address] T BILI Normal 0.20-1.00 [facility] Comment on above: Result Comment: EORD ERS NOW AND OCTOBER. THEY ARE DUPLICATES. I CX THESE. Performed By: #### L 500.4050, L100.0100 ####[facility] [address] [place], [address] T PROT Normal 6.4-8.2 [facility] Comment on above: Result Comment: EORD ERS NOW AND OCTOBER. THEY ARE DUPLICATES. I CX THESE. Performed By: #### L 500.4050, L100.0100 ####[facility] [address] [place], [address] Comprehensive Metabolic Profil Normal 136-145 [facility] Comment on above: Result Comment: EORD ERS NOW AND OCTOBER. THEY ARE DUPLICATES. I CX THESE. Performed By: #### L 500.4050, L100.0100 ####[facility] [address] [place], [address] Eosinophil percentageOrdered By: Jannet Dey on 06-30-2024 Eosinophils/100 WBC (Bld) 5.2 % High 0-5 [facility] Erythrocyte distribution wid th ratioOrdered By: Jannet Dey on 06-30-2024 Erythrocyte distribution width (RBC) [Ratio] 14.2 % 11.6-14.6 [facility] Erythrocyte distribution wid th standard deviationOrdered By: Jannet Dey on 06-30-2024 Erythrocyte distribution width (RBC) [Entitic vol] 47.7 fL High 35.1-43.9 [facility] Estimated glomerular filtrat ion rate (GFR) AmericanOrdered By: Jannet Dey on 06-30-2024 Estimated GFR (MDRD) Amer 68 mL/min >60 [facility] Comment on above: GFR Calc Glomerular filtration rate ( GFR) estimationOrdered By: Jannet Dey on 06-30-2024 Estimated GFR (MDRD) Non-Af Amer 56 mL/min Low >60 [facility] Comment on above: Non- GFR Calc Glucose measurementOrdered B y: Jannet Dey on 06-30-2024 Glucose [Mass/Vol] 74 mg/dL 74-106 [facility] Hematocrit Auto (Bld) [Volum e fraction]Ordered By: Jannet Dey on 06-30-2024 Hematocrit (Bld) [Volume fraction] 37.4 % 37-47 [facility] Hemoglobin measurementOrdere d By: Jannet Dey on 06-30-2024 Hemoglobin (Bld) [Mass/Vol] 12.0 g/dL 12.0-15.0 [facility] High density lipoprotein (HD L) measurementOrdered By: Jannet Dey on 06-30-2024 Cholesterol in HDL [Mass/Vol] 40 mg/dL >40 [facility] Comment on above: The drugs N-Acetylcy steine and Metamizole may falsely depress this assay. Reference Range HDL <40 mg/dL Low HDL Cholesterol HDL >or= 60 mg/dL High HDL Cholesterol Immature granulocytes/100 WB C Auto (Bld)Ordered By: Jannet Dey on 06-30-2024 Immature granulocytes/100 WBC (Bld) 1.300 % High 0.0-0.9 [facility] Comment on above: IG% - Immature Granu locytes (promyelocytes, myelocytes and metamyelocytes) > 1% indicates that a LEFT SHIFT is Present. Laboratory - Chemistry and C hemistry - challengeOrdered By: Jannet Dey on 06-30-2024 AST [Catalytic activity/Vol] 15 U/L 15-37 [facility] Lipid Profileon 06-30-2024 Cholesterol [Mass/Vol] 220 mg/dL High 200 [facility] Comment on above: Order Comment: PT MIDDLETON D ORDERS FOR NOW,AND OCTOBER. SO I DID THEM ALL. CANCELEDTHE NOW ORDERS BECAUSE THEY ARE DUPS.PT SAID TO DO IT ALL. SHE DID HAVE A 1/4 OF A BAGEL. Result Comment: <200 mg/dL Desirable 200-240 mg/dL Borderline >240 mg/dL High Risk Performed By: #### L 500.4100, L501.9520, L506.1000, L100.0100, L500.4050 ####[facility] [address] [place], [address] Cholesterol in HDL [Mass/Vol] 40 mg/dL Normal [facility] Comment on above: Order Comment: PT MIDDLETON D ORDERS FOR NOW,AND OCTOBER. SO I DID THEM ALL. CANCELEDTHE NOW ORDERS BECAUSE THEY ARE DUPS.PT SAID TO DO IT ALL. SHE DID HAVE A 1/4 OF A BAGEL. Result Comment: The drugs N-Acetylcysteine and Metamizole may falselydepress this assay. Reference Range HDL <40 mg/dL Low HDL Cholesterol HDL >or= 60 mg/dL High HDL Cholesterol Performed By: #### L 500.4100, L501.9520, L506.1000, L100.0100, L500.4050 ####[facility] [address] [place], [address] Cholesterol in LDL [Mass/Vol] 148 mg/dL High 0-130 [facility] Comment on above: Order Comment: PT MIDDLETON D ORDERS FOR NOW,AND OCTOBER. SO I DID THEM ALL. CANCELEDTHE NOW ORDERS BECAUSE THEY ARE DUPS.PT SAID TO DO IT ALL. SHE DID HAVE A 1/4 OF A BAGEL. Performed By: #### L 500.4100, L501.9520, L506.1000, L100.0100, L500.4050 ####[facility] [address] [place], [address] Cholesterol in VLDL [Mass/Vol] 32 mg/dL Normal 5-40 [facility] Comment on above: Order Comment: PT MIDDLETON D ORDERS FOR NOW,AND OCTOBER. SO I DID THEM ALL. CANCELEDTHE NOW ORDERS BECAUSE THEY ARE DUPS.PT SAID TO DO IT ALL. SHE DID HAVE A 1/4 OF A BAGEL. Performed By: #### L 500.4100, L501.9520, L506.1000, L100.0100, L500.4050 ####[facility] [address] [place], [address] Triglyceride [Mass/Vol] 158 mg/dL Normal [facility] Comment on above: Order Comment: PT MIDDLETON D ORDERS FOR NOW,AND OCTOBER. SO I DID THEM ALL. CANCELEDTHE NOW ORDERS BECAUSE THEY ARE DUPS.PT SAID TO DO IT ALL. SHE DID HAVE A 1/4 OF A BAGEL. Result Comment: The drugs N-Acetylcysteine and Metamizole may falselydepress this assay.Serum Triglycerides Reference Interval Normal <150 mg/dL Borderline high 150 - 199 mg/dL High 200 - 499 mg/dL Very High > or = 500 mg/dL Performed By: #### L 500.4100, L501.9520, L506.1000, L100.0100, L500.4050 ####[facility] [address] [place], [address] Low density lipoprotein (LDL ) cholesterol measurementOrdered By: Jannet Dey on 06-30-2024 Cholesterol in LDL [Mass/Vol] 148 mg/dL High 0-130 [facility] Lymphocytes Auto (Unsp spec) [#/Vol]Ordered By: Jannet Dey on 06-30-2024 Lymphocytes (Bld) [#/Vol] 0.98 10*3/uL 0.83-4.51 [facility] Lymphocytes/100 WBC Auto (Un sp spec)Ordered By: Jannet Dey on 06-30-2024 Lymphocytes/100 WBC (Bld) 14.1 % Low 19-41 [facility] MCV (mean corpuscular volume ) determinationOrdered By: Jannet Dey on 06-30-2024 MCV (RBC) [Entitic vol] 91.9 fL 81-99 [facility] MR/BMS.IMBon 06-30-2024 MR/BMS.IMB Normal [facility] Mean corpuscular hemoglobin (MCH) determinationOrdered By: Jannet Dey on 06-30-2024 MCH (RBC) [Entitic mass] 29.5 pg 27.0-32.0 [facility] Mean corpuscular hemoglobin concentration (MCHC) determinationOrdered By: Jannet Dey on 06-30-2024 MCHC (RBC) [Mass/Vol] 32.1 g/dL 32-36 [facility] Mean platelet volume determi nationOrdered By: Jannet Dey on 06-30-2024 Platelet mean volume (Bld) [Entitic vol] 10.3 fL 6.2-12.0 [facility] Monocyte percentageOrdered B y: Jannet Dey on 06-30-2024 Monocytes/100 WBC (Bld) 7.9 % 0-10 [facility] Neutrophil percentageOrdered By: Jannet Dey on 06-30-2024 Neutrophils/100 WBC (Bld) 70.8 % High 47-70 [facility] Nucleated red blood cell per centageOrdered By: Jannet Dey on 06-30-2024 Nucleated RBC/100 WBC (Bld) [Ratio] 0 % 0-5 [facility] Platelet countOrdered By: Jazmyn Dey on 06-30-2024 Platelets (Bld) [#/Vol] 408 10*3/uL 150-450 [facility] Potassium measurementOrdered By: Jannet Dey on 06-30-2024 Potassium [Moles/Vol] 2.8 mmol/L Low 3.5-5.1 [facility] RBC Auto (Bld) [#/Vol]Ordere d By: Jannet Dey on 06-30-2024 RBC (Bld) [#/Vol] 4.07 10*6/uL Low 4.2-5.4 [facility] Serum anion gap measurementO rdered By: Jannet Dey on 06-30-2024 Anion gap [Moles/Vol] 10 mmol/L 5-15 [facility] Serum globulin measurementOr dered By: Jannet Dey on 06-30-2024 Globulin (S) [Mass/Vol] 4.1 g/dL 2.2-4.2 [facility] Serum or plasma alanine fregoso otransferase (ALT) measurementOrdered By: Jannet Dey on 06-30-2024 ALT [Catalytic activity/Vol] 9 U/L Low 13-56 [facility] Serum or plasma albumin tommy urement (mass/volume)Ordered By: Jannet Dey on 06-30-2024 Albumin [Mass/Vol] 3.3 g/dL 3.2-5.0 [facility] Serum or plasma alkaline luciana sphatase measurementOrdered By: Jannet Dey on 06-30-2024 ALP [Catalytic activity/Vol] 98 U/L 45-117 [facility] Serum or plasma calcium tommy urement (mass/volume)Ordered By: Jannet Dey on 06-30-2024 Calcium [Mass/Vol] 9.7 mg/dL 8.5-10.1 [facility] Serum or plasma cholesterol measurement (mass/volume)Ordered By: Jannet Dey on 06-30-2024 Cholesterol [Mass/Vol] 220 mg/dL High <200 [facility] Comment on above: <200 mg/dL Desirable 200-240 mg/dL Borderline >240 mg/dL High Risk Serum or plasma creatinine m easurement (mass/volume)Ordered By: Jannet Dey on 06-30-2024 Creatinine [Mass/Vol] 1.03 mg/dL High 0.55-1.02 [facility] Comment on above: The validity of the calculated GFR & GFRAA in patients over 70 years has not been determined. Clinical correlation is essential. Serum or plasma urea nitroge n measurement (mass/volume)Ordered By: Jannet Dey on 06-30-2024 Urea nitrogen [Mass/Vol] 11 mg/dL 7-18 [facility] Sodium levelOrdered By: Aruna Dey on 06-30-2024 Sodium [Moles/Vol] 141 mmol/L 136-145 [facility] TSH QnOrdered By: Jannet Cyr hner on 06-30-2024 Thyroid Stimulating Hormone (TSH) 2.190 uIU/mL 0.358-3.740 [facility] Thyroid Stim Hormone (TSH)on 06-30-2024 TSH 2.190 uIU/mL Normal 0.358-3.740 [facility] Comment on above: Order Comment: PT MIDDLETON D ORDERS FOR NOW,AND OCTOBER. SO I DID THEM ALL. CANCELEDTHE NOW ORDERS BECAUSE THEY ARE DUPS.PT SAID TO DO IT ALL. SHE DID HAVE A 1/4 OF A BAGEL. Performed By: #### L 500.4100, L501.9520, L506.1000, L100.0100, L500.4050 ####[facility] [address] [place], [address] Total proteinOrdered By: Kady Dey on 06-30-2024 Protein [Mass/Vol] 7.4 g/dL 6.4-8.2 [facility] Triglycerides measurementOrd ered By: Jannet Dey on 06-30-2024 Triglyceride [Mass/Vol] 158 mg/dL <199 [facility] Comment on above: The drugs N-Acetylcy steine and Metamizole may falsely depress this assay.Serum Triglycerides Reference Interval Normal <150 mg/dL Borderline high 150 - 199 mg/dL High 200 - 499 mg/dL Very High > or = 500 mg/dL Very low density lipoprotein (VLDL) cholesterol measurementOrdered By: Jannet Dey on 06-30-2024 VLDL Cholesterol 32 mg/dL 5-40 [facility] Vitamin D,25 Hydroxyon 06-30 Vitamin D 25-OH 49.9 ng/mL Normal [facility] Comment on above: Result Comment: Hermila min D 25(OH) Status Range Deficiency <20 ng/mL (50nmol/L) Insufficiency 20 - 30 ng/mL (50 - 75 nmol/L) Sufficiency 30 - 100 ng/mL (75 - 250 nmol/L) Toxicity >100 ng/mL (>250 nmol/L) Performed By: #### L 500.4100, L501.9520, L506.1000, L100.0100, L500.4050 ####[facility] [id number] [place], [address] White blood cell (WBC) count Ordered By: Jannet Dey on 06-30-2024 WBC (Bld) [#/Vol] 7.0 10*3/uL 4.4-11.0 [facility] [facility] MR/BMS.IMBon 06-09-2024 MR/BMS.IMB Normal [facility] CNPNon 06-06-2024 CNPN Normal [facility] CNPNon 06-05-2024 CNPN Normal [facility] [id number] 06-04-2024 [id number] Normal [facility] Basic metabolic 2000 panelon 06-04-2024 Anion gap [Moles/Vol] 10 mmol/L Normal 8-15 [facility] Comment on above: Order Comment: Speci men Type: BLOOD SPECIMENOrdering Facility: [facility] Address: [address] [place] [address] Performed By: #### 2 4321-2 ####[facility] LABCLIA [id number] [facility] [id number] [address] [place] Calcium [Mass/Vol] 9.2 mg/dL Normal 8.5-10.2 [facility] Comment on above: Order Comment: Speci men Type: BLOOD SPECIMENOrdering Facility: [facility] Address: [address] [place] [address] Performed By: #### 2 4321-2 ####[facility] LABCLIA [id number] [place] [id number] [place] Chloride [Moles/Vol] 94 mmol/L Low 98-107 [facility] Comment on above: Order Comment: Speci men Type: BLOOD SPECIMENOrdering Facility: [facility] Address: [address] [place] [address] Performed By: #### 2 4321-2 ####[facility] LABCLIA [id number] [place] [address] [place] CO2 [Moles/Vol] 29 mmol/L Normal 22-30 [facility] Comment on above: Order Comment: Speci men Type: BLOOD SPECIMENOrdering Facility: [facility] Address: [address] [place] [address] Performed By: #### 2 4321-2 ####[facility] LABCLIA [id number] [place] [address] [place] Creatinine [Mass/Vol] 1.02 mg/dL High 0.58-0.96 [facility] Comment on above: Order Comment: Speci men Type: BLOOD SPECIMENOrdering Facility: [facility] Address: [address] [place] [address] Performed By: #### 2 4321-2 ####[facility] LABCLIA [id number] [place] [address] [place] Creatinine and Glomerular filtration rate.predicted panel (S/P/Bld) 59 mL/min/1.73m??? Low >=60 [facility] Comment on above: Order Comment: Speci men Type: BLOOD SPECIMENOrdering Facility: [facility] Address: [address] [place] [address] Result Comment: Carlyn mated Glomerular Filtration Rate (eGFR) is calculated using the 2020 CKD-EPI creatinine equation. This equation utilizes serum creatinine, sex, and age as parameters. The creatinine assay has traceable calibration to isotope dilution-mass spectrometry. Refer to KDIGO guidelines for clinical interpretation. In patients with unstable renal function, e.g. those with acute kidney injury, the eGFR may not accurately reflect actual GFR. Performed By: #### 2 4321-2 ####[facility] LABIA [id number] [place] [address] [place] Glucose [Mass/Vol] 100 mg/dL High 74-99 [facility] Comment on above: Order Comment: Karen estes Type: BLOOD SPECIMENOrdering Facility: [facility] Address: [address] [place] [address] Result Comment: The [place] [employer] (ADA) provides guidance for cutoff values for fasting glucose and random glucose. The ADA defines fasting as no caloric intake for at least 8 hours. Fasting plasma glucose results between 100 to 125 mg/dL indicate increased risk for diabetes (prediabetes).Fasting plasma glucose results greater than or equal to 126 mg/dL meet the criteria for diagnosis of diabetes. In the absence of unequivocal hyperglycemia, results should be confirmed by repeat testing. In a patient with classic symptoms of hyperglycemia or hyperglycemic crisis, random plasma glucose results greater than or equal to 200 mg/dL meet the criteria for diagnosis of diabetes.Reference: Standards of Medical Care in Diabetes 2016, [place] [employer]. Diabetes Care. 2016.39(Suppl 1). Performed By: #### 2 4321-2 ####[facility] LABIA [id number] [place] [id number] [place] Potassium [Moles/Vol] 4.5 mmol/L Normal 3.7-5.1 [facility] Comment on above: Order Comment: Karen estes Type: BLOOD SPECIMENOrdering Facility: [facility] Address: [address] [place] [address] Performed By: #### 2 4321-2 ####[facility] LABIA [id number] [place] [id number] [place] Sodium [Moles/Vol] 133 mmol/L Low 136-144 [facility] Comment on above: Order Comment: Speci men Type: BLOOD SPECIMENOrdering Facility: [facility] Address: [address] [place] [address] Performed By: #### 2 4321-2 ####[facility] LABCLIA [id number] [place] [address] [place] Urea nitrogen [Mass/Vol] 12 mg/dL Normal 7-21 [facility] Comment on above: Order Comment: Speci men Type: BLOOD SPECIMENOrdering Facility: [facility] Address: [address] [place] [address] Performed By: #### 2 4321-2 ####[facility] LABCLIA [id number] [address] [place] CASE MANAGEMon 06-04-2024 CASE MANAGEM Normal [facility] CBC panel Auto (Bld)on 06-04 Erythrocyte distribution width (RBC) [Ratio] 14.7 % Normal 11.5-15.0 [facility] Comment on above: Order Comment: Speci men Type: BLOOD SPECIMENOrdering Facility: [facility] Address: [address] [place] [address] Performed By: #### 5 8410-2 ####[facility] LABCLIA [id number] [place] [address] [place] Hematocrit (Bld) [Volume fraction] 34.8 % Low 36.0-46.0 [facility] Comment on above: Order Comment: Speci men Type: BLOOD SPECIMENOrdering Facility: [facility] Address: [address] [place] [address] Performed By: #### 5 8410-2 ####[facility] LABCLIA [id number] [place] [address] [place] Hemoglobin (Bld) [Mass/Vol] 10.9 g/dL Low 11.5-15.5 [facility] Comment on above: Order Comment: Speci men Type: BLOOD SPECIMENOrdering Facility: [facility] Address: [address] [place] [address] Performed By: #### 5 8410-2 ####[facility] LABIA [id number] [place] [address] [place] MCH (RBC) [Entitic mass] 29.7 pg Normal 26.0-34.0 [facility] Comment on above: Order Comment: Speci men Type: BLOOD SPECIMENOrdering Facility: [facility] Address: [address] [place] [address] Performed By: #### 5 8410-2 ####[facility] LABIA [id number] [place] [address] [place] MCHC (RBC) [Mass/Vol] 31.3 g/dL Normal 30.5-36.0 [facility] Comment on above: Order Comment: Speci men Type: BLOOD SPECIMENOrdering Facility: [facility] Address: [address] [place] [address] Performed By: #### 5 8410-2 ####[facility] LABIA [id number] [place] [address] [place] MCV (RBC) [Entitic vol] 94.8 fL Normal 80.0-100.0 [facility] Comment on above: Order Comment: Speci men Type: BLOOD SPECIMENOrdering Facility: [facility] Address: [address] [place] [address] Performed By: #### 5 8410-2 ####[facility] LABIA [id number] [place] [address] [place] Nucleated RBC (Bld) [#/Vol] 10*3/uL Normal <0.01 [facility] Comment on above: Order Comment: Speci men Type: BLOOD SPECIMENOrdering Facility: [facility] Address: [address] [place] [address] Performed By: #### 5 8410-2 ####[facility] LABCLIA [id number] [address] [address] [place] Platelet mean volume (Bld) [Entitic vol] 10.4 fL Normal 9.0-12.7 [facility] Comment on above: Order Comment: Speci men Type: BLOOD SPECIMENOrdering Facility: [facility] Address: [address] [place] [address] Performed By: #### 5 8410-2 ####[facility] LABCLIA [id number] [place] [address] [place] Platelets (Bld) [#/Vol] 209 10*3/uL Normal 150-400 [facility] Comment on above: Order Comment: Speci men Type: BLOOD SPECIMENOrdering Facility: [facility] Address: [address] [place] [address] Performed By: #### 5 8410-2 ####[facility] LABIA [id number] [place] [address] [place] RBC (Bld) [#/Vol] 3.67 10*6/uL Low 3.90-5.20 [facility] Comment on above: Order Comment: Speci men Type: BLOOD SPECIMENOrdering Facility: [facility] Address: [address] [place] [address] Performed By: #### 5 8410-2 ####[facility] LABIA [id number] [place] [id number] [place] WBC (Bld) [#/Vol] 6.11 10*3/uL Normal 3.70-11.00 [facility] Comment on above: Order Comment: Speci men Type: BLOOD SPECIMENOrdering Facility: [facility] Address: [address] [place] [address] Performed By: #### 5 8410-2 ####[facility] LABIA [id number] [place] [address] [place] CNDSon 06-04-2024 CNDS Normal [facility] PT panel Coag (PPP)on 2023 INR Coag (PPP) [Relative time] 1.0 {INR} Normal 0.9-1.3 [facility] Comment on above: Order Comment: Speci men Type: BLOOD SPECIMENOrdering Facility: [facility] Address: [address] [place] [address] Result Comment: Hermila min K Antagonist (VKA) Therapeutic Range: INR 2 to 3 (Target INR of 2.5)Note: For patients treated with VKA drugs, such as warfarin, the [place] [employer] 2012 Guideline recommends a therapeutic INR range of 2 to 3 (target INR of 2.5). This recommendation includes high-risk patients with antiphospholipid syndrome with previous arterial or venous thromboembolism, current-generation mechanical or bioprosthetic aortic heart valve replacement.Note: Patients with mechanical aortic valve replacement and additional risk factors for thromboembolic events (atrial fibrillation, previous thromboembolism, LV dysfunction, hypercoagulable conditions) or an older generation mechanical AVR (i.e., ball in-Cage) or any mechanical MVR should have a INR therapeutic range of 2.5 to 3.5 (target INR of 3).Gabriella GH, et al. Chest 2012, 141:7S-47SNishimlaura RA, et al. [facility] 2017, 70: 252-289 Performed By: #### 3 4528-0 ####[facility] LABCLIA [id number] [place] [id number] [place] PT Coag (PPP) [Time] 11.3 s Normal 9.7-13.0 [facility] Comment on above: Order Comment: Speci men Type: BLOOD SPECIMENOrdering Facility: [facility] Address: [address] [place] [address] Performed By: #### 3 4528-0 ####[facility] LABCLIA [id number] [place] [address] [place] THERAPY NTon 06-04-2024 THERAPY NT Normal [facility] Basic metabolic 2000 panelon 06-03-2024 Anion gap [Moles/Vol] 13 mmol/L Normal 8-15 [facility] Comment on above: Order Comment: Speci men Type: BLOOD SPECIMENOrdering Facility: [facility] Address: [address] [place] [address] Performed By: #### 2 4321-2 ####[facility] LABCLIA [id number] [place] [address] [place] Calcium [Mass/Vol] 8.8 mg/dL Normal 8.5-10.2 [facility] Comment on above: Order Comment: Speci men Type: BLOOD SPECIMENOrdering Facility: [facility] Address: [address] [place] [address] Performed By: #### 2 4321-2 ####[facility] LABCLIA [id number] [place] [address] [place] Chloride [Moles/Vol] 94 mmol/L Low 98-107 [facility] Comment on above: Order Comment: Speci men Type: BLOOD SPECIMENOrdering Facility: [facility] Address: [address] [place] [address] Performed By: #### 2 4321-2 ####[facility] LABCLIA [id number] [place] [address] [place] CO2 [Moles/Vol] 26 mmol/L Normal 22-30 [facility] Comment on above: Order Comment: Speci men Type: BLOOD SPECIMENOrdering Facility: [facility] Address: [address] [place] [address] Performed By: #### 2 4321-2 ####[facility] LABCLIA [id number] [place] [address] [place] Creatinine [Mass/Vol] 0.97 mg/dL High 0.58-0.96 [facility] Comment on above: Order Comment: Speci men Type: BLOOD SPECIMENOrdering Facility: [facility] Address: [address] [place] [address] Performed By: #### 2 4321-2 ####[facility] LABCLIA [id number] [place] [address] [place] Creatinine and Glomerular filtration rate.predicted panel (S/P/Bld) 63 mL/min/1.73m??? Normal >=60 [facility] Comment on above: Order Comment: Karen estes Type: BLOOD SPECIMENOrdering Facility: [facility] Address: [address] [place] [address] Result Comment: Carlyn mated Glomerular Filtration Rate (eGFR) is calculated using the 2020 CKD-EPI creatinine equation. This equation utilizes serum creatinine, sex, and age as parameters. The creatinine assay has traceable calibration to isotope dilution-mass spectrometry. Refer to KDIGO guidelines for clinical interpretation. In patients with unstable renal function, e.g. those with acute kidney injury, the eGFR may not accurately reflect actual GFR. Performed By: #### 2 4321-2 ####[facility] LABCLIA [id number] [place] [address] [place] Glucose [Mass/Vol] 95 mg/dL Normal 74-99 [facility] Comment on above: Order Comment: Karen estes Type: BLOOD SPECIMENOrdering Facility: [facility] Address: [address] [place] [address] Result Comment: The [place] [employer] (ADA) provides guidance for cutoff values for fasting glucose and random glucose. The ADA defines fasting as no caloric intake for at least 8 hours. Fasting plasma glucose results between 100 to 125 mg/dL indicate increased risk for diabetes (prediabetes).Fasting plasma glucose results greater than or equal to 126 mg/dL meet the criteria for diagnosis of diabetes. In the absence of unequivocal hyperglycemia, results should be confirmed by repeat testing. In a patient with classic symptoms of hyperglycemia or hyperglycemic crisis, random plasma glucose results greater than or equal to 200 mg/dL meet the criteria for diagnosis of diabetes.Reference: Standards of Medical Care in Diabetes 2016, [place] [employer]. Diabetes Care. 2016.39(Suppl 1). Performed By: #### 2 4321-2 ####[facility] LABCLIA [id number] [place] [address] [place] Potassium [Moles/Vol] 3.6 mmol/L Low 3.7-5.1 [facility] Comment on above: Order Comment: Speci men Type: BLOOD SPECIMENOrdering Facility: [facility] Address: [address] [place] [address] Performed By: #### 2 4321-2 ####[facility] LABCLIA [id number] [place] [address] [place] Sodium [Moles/Vol] 133 mmol/L Low 136-144 [facility] Comment on above: Order Comment: Speci men Type: BLOOD SPECIMENOrdering Facility: [facility] Address: [address] [place] [address] Performed By: #### 2 4321-2 ####[facility] LABCLIA [id number] [place] [address] [place] Urea nitrogen [Mass/Vol] 14 mg/dL Normal 7-21 [facility] Comment on above: Order Comment: Speci men Type: BLOOD SPECIMENOrdering Facility: [facility] Address: [address] [place] [address] Performed By: #### 2 4321-2 ####[facility] LABCLIA [id number] [place] [address] [place] CBC panel Auto (Bld)on 06-03 Erythrocyte distribution width (RBC) [Ratio] 14.9 % Normal 11.5-15.0 [facility] Comment on above: Order Comment: Speci men Type: BLOOD SPECIMENOrdering Facility: [facility] Address: [address] [place] [address] Performed By: #### 5 8410-2 ####[facility] LABCLIA [id number] [place] [address] [place] Hematocrit (Bld) [Volume fraction] 32.5 % Low 36.0-46.0 [facility] Comment on above: Order Comment: Speci men Type: BLOOD SPECIMENOrdering Facility: [facility] Address: [address] [place] [address] Performed By: #### 5 8410-2 ####[facility] LABIA [id number] [place] [address] [place] Hemoglobin (Bld) [Mass/Vol] 10.7 g/dL Low 11.5-15.5 [facility] Comment on above: Order Comment: Speci men Type: BLOOD SPECIMENOrdering Facility: [facility] Address: [address] [place] [address] Performed By: #### 5 8410-2 ####[facility] LABIA [id number] [place] [address] [place] MCH (RBC) [Entitic mass] 30.2 pg Normal 26.0-34.0 [facility] Comment on above: Order Comment: Speci men Type: BLOOD SPECIMENOrdering Facility: [facility] Address: [address] [place] [address] Performed By: #### 5 8410-2 ####[facility] LABIA [id number] [place] [address] [place] MCHC (RBC) [Mass/Vol] 32.9 g/dL Normal 30.5-36.0 [facility] Comment on above: Order Comment: Speci men Type: BLOOD SPECIMENOrdering Facility: [facility] Address: [address] [place] [address] Performed By: #### 5 8410-2 ####[facility] LABIA [id number] [place] [address] [place] MCV (RBC) [Entitic vol] 91.8 fL Normal 80.0-100.0 [facility] Comment on above: Order Comment: Speci men Type: BLOOD SPECIMENOrdering Facility: [facility] Address: [address] [place] [address] Performed By: #### 5 8410-2 ####[facility] LABCLIA [id number] [place] [address] [place] Nucleated RBC (Bld) [#/Vol] 10*3/uL Normal <0.01 [facility] Comment on above: Order Comment: Speci men Type: BLOOD SPECIMENOrdering Facility: [facility] Address: [address] [place] [address] Performed By: #### 5 8410-2 ####[facility] LABIA [id number] [place] [address] [place] Platelet mean volume (Bld) [Entitic vol] 10.2 fL Normal 9.0-12.7 [facility] Comment on above: Order Comment: Speci men Type: BLOOD SPECIMENOrdering Facility: [facility] Address: [address] [place] [address] Performed By: #### 5 8410-2 ####[facility] LABIA [id number] [place] [address] [place] Platelets (Bld) [#/Vol] 211 10*3/uL Normal 150-400 [facility] Comment on above: Order Comment: Speci men Type: BLOOD SPECIMENOrdering Facility: [facility] Address: [address] [place] [address] Performed By: #### 5 8410-2 ####[facility] LABCLIA [id number] [place] [address] [place] RBC (Bld) [#/Vol] 3.54 10*6/uL Low 3.90-5.20 [facility] Comment on above: Order Comment: Speci men Type: BLOOD SPECIMENOrdering Facility: [facility] Address: [address] [place] [address] Performed By: #### 5 8410-2 ####[facility] LABCLIA [id number] [place] [address] [place] WBC (Bld) [#/Vol] 7.31 10*3/uL Normal 3.70-11.00 [facility] Comment on above: Order Comment: Speci men Type: BLOOD SPECIMENOrdering Facility: [facility] Address: [address] [place] [address] Performed By: #### 5 8410-2 ####[facility] LABIA [id number] [place] [address] [place] NUTRITIONon 06-03-2024 NUTRITION Normal [facility] PT panel Coag (PPP)on 2023 INR Coag (PPP) [Relative time] 1.1 {INR} Normal 0.9-1.3 [facility] Comment on above: Order Comment: Speci men Type: BLOOD SPECIMENOrdering Facility: [facility] Address: [address] [place] [address] Result Comment: Hermila min K Antagonist (VKA) Therapeutic Range: INR 2 to 3 (Target INR of 2.5)Note: For patients treated with VKA drugs, such as warfarin, the [place] [employer] 2012 Guideline recommends a therapeutic INR range of 2 to 3 (target INR of 2.5). This recommendation includes high-risk patients with antiphospholipid syndrome with previous arterial or venous thromboembolism, current-generation mechanical or bioprosthetic aortic heart valve replacement.Note: Patients with mechanical aortic valve replacement and additional risk factors for thromboembolic events (atrial fibrillation, previous thromboembolism, LV dysfunction, hypercoagulable conditions) or an older generation mechanical AVR (i.e., ball in-Cage) or any mechanical MVR should have a INR therapeutic range of 2.5 to 3.5 (target INR of 3).Gabriella GH, et al. Chest 2012, 141:7S-47SNishimura RA, et al. [facility] 2017, 70: 252-289 Performed By: #### 3 4528-0 ####[facility] LABIA [id number] [address] [place] PT Coag (PPP) [Time] 11.4 s Normal 9.7-13.0 [facility] Comment on above: Order Comment: Speci men Type: BLOOD SPECIMENOrdering Facility: [facility] Address: [address] [place] [address] Performed By: #### 3 4528-0 ####[facility] LABCLIA [id number] [place] [address] [place] THERAPY NTon 06-03-2024 THERAPY NT Normal [facility] Basic metabolic 2000 panelon 06-02-2024 Anion gap [Moles/Vol] 13 mmol/L Normal 8-15 [facility] Comment on above: Order Comment: Speci men Type: BLOOD SPECIMENOrdering Facility: [facility] Address: [address] [place] [address] Performed By: #### 2 4321-2 ####[facility] LABCLIA [id number] [place] [address] [place] Calcium [Mass/Vol] 9.1 mg/dL Normal 8.5-10.2 [facility] Comment on above: Order Comment: Speci men Type: BLOOD SPECIMENOrdering Facility: [facility] Address: [address] [place] [address] Performed By: #### 2 4321-2 ####[facility] LABCLIA [id number] [place] [address] [place] Chloride [Moles/Vol] 94 mmol/L Low 98-107 [facility] Comment on above: Order Comment: Speci men Type: BLOOD SPECIMENOrdering Facility: [facility] Address: [address] [place] [address] Performed By: #### 2 4321-2 ####[facility] LABCLIA [id number] [place] [address] [place] CO2 [Moles/Vol] 28 mmol/L Normal 22-30 [facility] Comment on above: Order Comment: Speci men Type: BLOOD SPECIMENOrdering Facility: [facility] Address: [address] [place] [address] Performed By: #### 2 4321-2 ####[facility] LABIA [id number] [place] [address] [place] Creatinine [Mass/Vol] 1.06 mg/dL High 0.58-0.96 [facility] Comment on above: Order Comment: Speci men Type: BLOOD SPECIMENOrdering Facility: [facility] Address: [address] [place] [address] Performed By: #### 2 4321-2 ####[facility] LABIA [id number] [place] [address] [place] Creatinine and Glomerular filtration rate.predicted panel (S/P/Bld) 56 mL/min/1.73m??? Low >=60 [facility] Comment on above: Order Comment: Speci men Type: BLOOD SPECIMENOrdering Facility: [facility] Address: [address] [place] [address] Result Comment: Carlyn mated Glomerular Filtration Rate (eGFR) is calculated using the 2020 CKD-EPI creatinine equation. This equation utilizes serum creatinine, sex, and age as parameters. The creatinine assay has traceable calibration to isotope dilution-mass spectrometry. Refer to KDIGO guidelines for clinical interpretation. In patients with unstable renal function, e.g. those with acute kidney injury, the eGFR may not accurately reflect actual GFR. Performed By: #### 2 4321-2 ####[facility] LABIA [id number] [place] [address] [place] Glucose [Mass/Vol] 106 mg/dL High 74-99 [facility] Comment on above: Order Comment: Speci men Type: BLOOD SPECIMENOrdering Facility: [facility] Address: [address] [place] [address] Result Comment: The [place] [employer] (ADA) provides guidance for cutoff values for fasting glucose and random glucose. The ADA defines fasting as no caloric intake for at least 8 hours. Fasting plasma glucose results between 100 to 125 mg/dL indicate increased risk for diabetes (prediabetes).Fasting plasma glucose results greater than or equal to 126 mg/dL meet the criteria for diagnosis of diabetes. In the absence of unequivocal hyperglycemia, results should be confirmed by repeat testing. In a patient with classic symptoms of hyperglycemia or hyperglycemic crisis, random plasma glucose results greater than or equal to 200 mg/dL meet the criteria for diagnosis of diabetes.Reference: Standards of Medical Care in Diabetes 2016, [place] [employer]. Diabetes Care. 2016.39(Suppl 1). Performed By: #### 2 4321-2 ####[facility] LABCLIA [id number] [place] [address] [place] Potassium [Moles/Vol] 3.4 mmol/L Low 3.7-5.1 [facility] Comment on above: Order Comment: Karen estes Type: BLOOD SPECIMENOrdering Facility: [facility] Address: [address] [place] [address] Performed By: #### 2 4321-2 ####[facility] LABIA [id number] [place] [address] [place] Sodium [Moles/Vol] 135 mmol/L Low 136-144 [facility] Comment on above: Order Comment: Karen estes Type: BLOOD SPECIMENOrdering Facility: [facility] Address: [address] [place] [address] Performed By: #### 2 4321-2 ####[facility] LABIA [id number] [place] [address] [place] Urea nitrogen [Mass/Vol] 14 mg/dL Normal 7-21 [facility] Comment on above: Order Comment: Ana Cristinai men Type: BLOOD SPECIMENOrdering Facility: [facility] Address: [address] [place] [address] Performed By: #### 2 4321-2 ####[facility] LABIA [id number] [place] [id number] [place] CASE MANAGEMon 06-02-2024 CASE MANAGEM Normal [facility] CBC panel Auto (Bld)on 06-02 Erythrocyte distribution width (RBC) [Ratio] 14.9 % Normal 11.5-15.0 [facility] Comment on above: Order Comment: Speci men Type: BLOOD SPECIMENOrdering Facility: [facility] Address: [address] [place] [address] Performed By: #### 5 8410-2 ####[facility] LABCLIA [id number] [place] [address] [place] Hematocrit (Bld) [Volume fraction] 35.2 % Low 36.0-46.0 [facility] Comment on above: Order Comment: Speci men Type: BLOOD SPECIMENOrdering Facility: [facility] Address: [address] [place] [address] Performed By: #### 5 8410-2 ####[facility] LABCLIA [id number] [place] [address] [place] Hemoglobin (Bld) [Mass/Vol] 11.5 g/dL Normal 11.5-15.5 [facility] Comment on above: Order Comment: Speci men Type: BLOOD SPECIMENOrdering Facility: [facility] Address: [address] [place] [address] Performed By: #### 5 8410-2 ####[facility] LABCLIA [id number] [place] [address] [place] MCH (RBC) [Entitic mass] 30.9 pg Normal 26.0-34.0 [facility] Comment on above: Order Comment: Speci men Type: BLOOD SPECIMENOrdering Facility: [facility] Address: [address] [place] [address] Performed By: #### 5 8410-2 ####[facility] LABCLIA [id number] [place] [address] [place] MCHC (RBC) [Mass/Vol] 32.7 g/dL Normal 30.5-36.0 [facility] Comment on above: Order Comment: Speci men Type: BLOOD SPECIMENOrdering Facility: [facility] Address: [address] [place] [address] Performed By: #### 5 8410-2 ####[facility] LABIA [id number] [place] [address] [place] MCV (RBC) [Entitic vol] 94.6 fL Normal 80.0-100.0 [facility] Comment on above: Order Comment: Speci men Type: BLOOD SPECIMENOrdering Facility: [facility] Address: [address] [place] [address] Performed By: #### 5 8410-2 ####[facility] LABIA [id number] [place] [address] [place] Nucleated RBC (Bld) [#/Vol] 10*3/uL Normal <0.01 [facility] Comment on above: Order Comment: Speci men Type: BLOOD SPECIMENOrdering Facility: [facility] Address: [address] [place] [address] Performed By: #### 5 8410-2 ####[facility] LABIA [id number] [place] [address] [place] Platelet mean volume (Bld) [Entitic vol] 10.2 fL Normal 9.0-12.7 [facility] Comment on above: Order Comment: Speci men Type: BLOOD SPECIMENOrdering Facility: [facility] Address: [address] [place] [address] Performed By: #### 5 8410-2 ####[facility] LABIA [id number] [place] [address] [place] Platelets (Bld) [#/Vol] 193 10*3/uL Normal 150-400 [facility] Comment on above: Order Comment: Speci men Type: BLOOD SPECIMENOrdering Facility: [facility] Address: [address] [place] [address] Performed By: #### 5 8410-2 ####[facility] LABCLIA [id number] [place] [address] [place] RBC (Bld) [#/Vol] 3.72 10*6/uL Low 3.90-5.20 [facility] Comment on above: Order Comment: Speci men Type: BLOOD SPECIMENOrdering Facility: [facility] Address: [address] [place] [address] Performed By: #### 5 8410-2 ####[facility] LABCLIA [id number] [place] [address] [place] WBC (Bld) [#/Vol] 5.96 10*3/uL Normal 3.70-11.00 [facility] Comment on above: Order Comment: Speci men Type: BLOOD SPECIMENOrdering Facility: [facility] Address: [address] [place] [address] Performed By: #### 5 8410-2 ####[facility] LABIA [id number] [place] [address] [place] PT panel Coag (PPP)on 2023 INR Coag (PPP) [Relative time] 1.0 {INR} Normal 0.9-1.3 [facility] Comment on above: Order Comment: Speci men Type: BLOOD SPECIMENOrdering Facility: [facility] Address: [address] [place] [address] Result Comment: Hermila min K Antagonist (VKA) Therapeutic Range: INR 2 to 3 (Target INR of 2.5)Note: For patients treated with VKA drugs, such as warfarin, the [place] [employer] 2012 Guideline recommends a therapeutic INR range of 2 to 3 (target INR of 2.5). This recommendation includes high-risk patients with antiphospholipid syndrome with previous arterial or venous thromboembolism, current-generation mechanical or bioprosthetic aortic heart valve replacement.Note: Patients with mechanical aortic valve replacement and additional risk factors for thromboembolic events (atrial fibrillation, previous thromboembolism, LV dysfunction, hypercoagulable conditions) or an older generation mechanical AVR (i.e., ball in-Cage) or any mechanical MVR should have a INR therapeutic range of 2.5 to 3.5 (target INR of 3).Gabriella GH, et al. Chest 2012, 141:7S-47SNishimura RA, et al. [facility] 2017, 70: 252-289 Performed By: #### 3 4528-0 ####[facility] LABIA [id number] [place] [address] [place] PT Coag (PPP) [Time] 11.2 s Normal 9.7-13.0 [facility] Comment on above: Order Comment: Speci men Type: BLOOD SPECIMENOrdering Facility: [facility] Address: [address] [place] [address] Performed By: #### 3 4528-0 ####[facility] [id number] [place] [address] [place] Basic metabolic 2000 panelon 06-01-2024 Anion gap [Moles/Vol] 10 mmol/L Normal 8-15 [facility] Comment on above: Order Comment: Speci men Type: BLOOD SPECIMENOrdering Facility: [facility] Address: [address] [place] [address] Performed By: #### 2 4321-2 ####[facility] LABIA [id number] [place] [address] [place] Calcium [Mass/Vol] 9.2 mg/dL Normal 8.5-10.2 [facility] Comment on above: Order Comment: Speci men Type: BLOOD SPECIMENOrdering Facility: [facility] Address: [address] [place] [address] Performed By: #### 2 4321-2 ####[facility] LABIA [id number] [place] [address] [place] Chloride [Moles/Vol] 96 mmol/L Low 98-107 [facility] Comment on above: Order Comment: Speci men Type: BLOOD SPECIMENOrdering Facility: [facility] Address: [address] [place] [address] Performed By: #### 2 4321-2 ####[facility] LABCLIA [id number] [place] [address] [place] CO2 [Moles/Vol] 31 mmol/L High 22-30 [facility] Comment on above: Order Comment: Speci men Type: BLOOD SPECIMENOrdering Facility: [facility] Address: [address] [place] [address] Performed By: #### 2 4321-2 ####[facility] LABIA [id number] [place] [address] [place] Creatinine [Mass/Vol] 1.05 mg/dL High 0.58-0.96 [facility] Comment on above: Order Comment: Speci men Type: BLOOD SPECIMENOrdering Facility: [facility] Address: [address] [place] [address] Performed By: #### 2 4321-2 ####[facility] LABIA [id number] [address] [place] Creatinine and Glomerular filtration rate.predicted panel (S/P/Bld) 57 mL/min/1.73m??? Low >=60 [facility] Comment on above: Order Comment: Speci men Type: BLOOD SPECIMENOrdering Facility: [facility] Address: [address] [place] [address] Result Comment: Carlyn mated Glomerular Filtration Rate (eGFR) is calculated using the 2020 CKD-EPI creatinine equation. This equation utilizes serum creatinine, sex, and age as parameters. The creatinine assay has traceable calibration to isotope dilution-mass spectrometry. Refer to KDIGO guidelines for clinical interpretation. In patients with unstable renal function, e.g. those with acute kidney injury, the eGFR may not accurately reflect actual GFR. Performed By: #### 2 4321-2 ####[facility] LABIA [id number] [place] [address] [place] Glucose [Mass/Vol] 83 mg/dL Normal 74-99 [facility] Comment on above: Order Comment: Speci men Type: BLOOD SPECIMENOrdering Facility: [facility] Address: [address] [place] [address] Result Comment: The [place] [employer] (ADA) provides guidance for cutoff values for fasting glucose and random glucose. The ADA defines fasting as no caloric intake for at least 8 hours. Fasting plasma glucose results between 100 to 125 mg/dL indicate increased risk for diabetes (prediabetes).Fasting plasma glucose results greater than or equal to 126 mg/dL meet the criteria for diagnosis of diabetes. In the absence of unequivocal hyperglycemia, results should be confirmed by repeat testing. In a patient with classic symptoms of hyperglycemia or hyperglycemic crisis, random plasma glucose results greater than or equal to 200 mg/dL meet the criteria for diagnosis of diabetes.Reference: Standards of Medical Care in Diabetes 2016, [place] [employer]. Diabetes Care. 2016.39(Suppl 1). Performed By: #### 2 4321-2 ####[facility] LABCLIA [id number] [place] [address] [place] Potassium [Moles/Vol] 4.1 mmol/L Normal 3.7-5.1 [facility] Comment on above: Order Comment: Speci men Type: BLOOD SPECIMENOrdering Facility: [facility] Address: [address] [place] [address] Performed By: #### 2 4321-2 ####[facility] LABCLIA [id number] [place] [address] [place] Sodium [Moles/Vol] 137 mmol/L Normal 136-144 [facility] Comment on above: Order Comment: Speci men Type: BLOOD SPECIMENOrdering Facility: [facility] Address: [address] [place] [address] Performed By: #### 2 4321-2 ####[facility] LABCLIA [id number] [place] [address] [place] Urea nitrogen [Mass/Vol] 16 mg/dL Normal 7-21 [facility] Comment on above: Order Comment: Speci men Type: BLOOD SPECIMENOrdering Facility: [facility] Address: [address] [place] [address] Performed By: #### 2 4321-2 ####[facility] LABCLIA [id number] [place] [address] [place] CBC panel Auto (Bld)on 06-01 Erythrocyte distribution width (RBC) [Ratio] 15.1 % High 11.5-15.0 [facility] Comment on above: Order Comment: Speci men Type: BLOOD SPECIMENOrdering Facility: [facility] Address: [address] [place] [address] Performed By: #### 5 8410-2 ####[facility] LABCLIA [id number] [place] [address] [place] Hematocrit (Bld) [Volume fraction] 32.5 % Low 36.0-46.0 [facility] Comment on above: Order Comment: Speci men Type: BLOOD SPECIMENOrdering Facility: [facility] Address: [address] [place] [address] Performed By: #### 5 8410-2 ####[facility] LABCLIA [id number] [place] [address] [place] Hemoglobin (Bld) [Mass/Vol] 10.6 g/dL Low 11.5-15.5 [facility] Comment on above: Order Comment: Speci men Type: BLOOD SPECIMENOrdering Facility: [facility] Address: [address] [place] [address] Performed By: #### 5 8410-2 ####[facility] LABCLIA [id number] [place] [address] [place] MCH (RBC) [Entitic mass] 31.2 pg Normal 26.0-34.0 [facility] Comment on above: Order Comment: Speci men Type: BLOOD SPECIMENOrdering Facility: [facility] Address: [address] [place] [address] Performed By: #### 5 8410-2 ####[facility] LABCLIA [id number] [place] [address] [place] MCHC (RBC) [Mass/Vol] 32.6 g/dL Normal 30.5-36.0 [facility] Comment on above: Order Comment: Speci men Type: BLOOD SPECIMENOrdering Facility: [facility] Address: [address] [place] [address] Performed By: #### 5 8410-2 ####[facility] LABCLIA [id number] [place] [address] [place] MCV (RBC) [Entitic vol] 95.6 fL Normal 80.0-100.0 [facility] Comment on above: Order Comment: Speci men Type: BLOOD SPECIMENOrdering Facility: [facility] Address: [address] [place] [address] Performed By: #### 5 8410-2 ####[facility] LABCLIA [id number] [place] [address] [place] Nucleated RBC (Bld) [#/Vol] 10*3/uL Normal <0.01 [facility] Comment on above: Order Comment: Speci men Type: BLOOD SPECIMENOrdering Facility: [facility] Address: [address] [place] [address] Performed By: #### 5 8410-2 ####[facility] LABCLIA [id number] [place] [address] [place] Platelet mean volume (Bld) [Entitic vol] 10.5 fL Normal 9.0-12.7 [facility] Comment on above: Order Comment: Speci men Type: BLOOD SPECIMENOrdering Facility: [facility] Address: [address] [place] [address] Performed By: #### 5 8410-2 ####[facility] LABCLIA [id number] [place] [address] [place] Platelets (Bld) [#/Vol] 170 10*3/uL Normal 150-400 [facility] Comment on above: Order Comment: Speci men Type: BLOOD SPECIMENOrdering Facility: [facility] Address: [address] [place] [address] Performed By: #### 5 8410-2 ####[facility] [id number] [place] [address] [place] RBC (Bld) [#/Vol] 3.40 10*6/uL Low 3.90-5.20 [facility] Comment on above: Order Comment: Speci men Type: BLOOD SPECIMENOrdering Facility: [facility] Address: [address] [place] [address] Performed By: #### 5 8410-2 ####[facility] [id number] [place] [address] [place] WBC (Bld) [#/Vol] 4.80 10*3/uL Normal 3.70-11.00 [facility] Comment on above: Order Comment: Speci men Type: BLOOD SPECIMENOrdering Facility: [facility] Address: [address] [place] [address] Performed By: #### 5 8410-2 ####[facility] [id number] [place] [address] [place] PT panel Coag (PPP)on 2023 INR Coag (PPP) [Relative time] 1.0 {INR} Normal 0.9-1.3 [facility] Comment on above: Order Comment: Speci men Type: BLOOD SPECIMENOrdering Facility: [facility] Address: [address] [place] [address] Result Comment: Hermila min K Antagonist (VKA) Therapeutic Range: INR 2 to 3 (Target INR of 2.5)Note: For patients treated with VKA drugs, such as warfarin, the [place] [employer] 2012 Guideline recommends a therapeutic INR range of 2 to 3 (target INR of 2.5). This recommendation includes high-risk patients with antiphospholipid syndrome with previous arterial or venous thromboembolism, current-generation mechanical or bioprosthetic aortic heart valve replacement.Note: Patients with mechanical aortic valve replacement and additional risk factors for thromboembolic events (atrial fibrillation, previous thromboembolism, LV dysfunction, hypercoagulable conditions) or an older generation mechanical AVR (i.e., ball in-Cage) or any mechanical MVR should have a INR therapeutic range of 2.5 to 3.5 (target INR of 3).Gabriella GH, et al. Chest 2012, 141:7S-47SNishimura RA, et al. [facility] 2017, 70: 252-289 Performed By: #### 3 4528-0 ####[facility] LABCLIA [id number] [place] [address] [place] PT Coag (PPP) [Time] 10.9 s Normal 9.7-13.0 [facility] Comment on above: Order Comment: Speci men Type: BLOOD SPECIMENOrdering Facility: [facility] Address: [address] [place] [address] Performed By: #### 3 4528-0 ####[facility] LABIA [id number] [place] [address] [place] URINALYSIS, REFLEX MICROSCOP ICon 06-01-2024 BACTERIA UL 4810.6 uL High Negative [facility] Comment on above: Order Comment: Speci men Type: URINE SPECIMENOrdering Facility: [facility] Address: [address] [place] [address] Performed By: #### L [id number] ####[facility] LABIA [id number] [place] [address] [place] Bilirubin Ql (U) Negative Normal Negative [facility] Comment on above: Order Comment: Speci men Type: URINE SPECIMENOrdering Facility: [facility] Address: [address] [place] [address] Performed By: #### L [id number] ####[facility] LABCLIA [id number] [place] [address] [place] Clarity (Unsp spec) Clear Normal Clear [facility] Comment on above: Order Comment: Speci men Type: URINE SPECIMENOrdering Facility: [facility] Address: [address] [place] [address] Performed By: #### L [id number] ####[facility] LABCLIA [id number] [place] [address] [place] Color (U) Yellow Normal Yellow [facility] Comment on above: Order Comment: Speci men Type: URINE SPECIMENOrdering Facility: [facility] Address: [address] [place] [address] Performed By: #### L [id number] ####[facility] LABIA [id number] [place] [address] [place] Epithelial cells LM.HPF (Urine sed) [#/Area] Few Normal [facility] Comment on above: Order Comment: Speci men Type: URINE SPECIMENOrdering Facility: [facility] Address: [address] [place] [address] Performed By: #### L [id number] ####[facility] LABIA [id number] [place] [address] [place] Glucose Test strip (U) [Mass/Vol] Negative Normal Negative [facility] Comment on above: Order Comment: Speci men Type: URINE SPECIMENOrdering Facility: [facility] Address: [address] [place] [address] Performed By: #### L [id number] ####[facility] LABIA [id number] [place] [address] [place] Hemoglobin Ql (U) Negative Normal Negative [facility] Comment on above: Order Comment: Speci men Type: URINE SPECIMENOrdering Facility: [facility] Address: [address] [place] [address] Performed By: #### L [id number] ####[facility] LABCLIA [id number] [place] [address] [place] Hyaline casts (Urine sed) [#/Area] 1-3 /LPF Abnormal 0 /LPF [facility] Comment on above: Order Comment: Speci men Type: URINE SPECIMENOrdering Facility: [facility] Address: [address] [place] [address] Performed By: #### L [id number] ####[facility] LABCLIA [id number] [place] [address] [place] Ketones Ql (U) Negative Normal Negative [facility] Comment on above: Order Comment: Speci men Type: URINE SPECIMENOrdering Facility: [facility] Address: [address] [place] [address] Performed By: #### L [id number] ####[facility] LABCLIA [id number] [place] [address] [place] Leukocyte esterase Test strip Ql (U) 1+ Abnormal Negative [facility] Comment on above: Order Comment: Speci men Type: URINE SPECIMENOrdering Facility: [facility] Address: [address] [place] [address] Performed By: #### L [id number] ####[facility] LABCLIA [id number] [place] [address] [place] Nitrite Ql (U) Negative Normal Negative [facility] Comment on above: Order Comment: Speci men Type: URINE SPECIMENOrdering Facility: [facility] Address: [address] [place] [address] Performed By: #### L [id number] ####[facility] LABCLIA [id number] [place] [address] [place] pH (U) 6.5 [pH] Normal <8.5 [facility] Comment on above: Order Comment: Speci men Type: URINE SPECIMENOrdering Facility: [facility] Address: [address] [place] [address] Performed By: #### L [id number] ####[facility] LABCLIA [id number] [place] [address] [place] Protein (U) [Mass/Vol] Trace Abnormal Negative [facility] Comment on above: Order Comment: Speci men Type: URINE SPECIMENOrdering Facility: [facility] Address: [address] [place] [address] Performed By: #### L [id number] ####[facility] LABIA [id number] [place] [address] [place] RBC LM.HPF (Urine sed) [#/Area] 0-2 /HPF Normal 0-2 /HPF [facility] Comment on above: Order Comment: Speci men Type: URINE SPECIMENOrdering Facility: [facility] Address: [address] [place] [address] Performed By: #### L [id number] ####[facility] LABIA [id number] [place] [address] [place] Specific gravity (U) [Rel density] 1.011 Normal 1.005-1.030 [facility] Comment on above: Order Comment: Speci men Type: URINE SPECIMENOrdering Facility: [facility] Address: [address] [place] [address] Performed By: #### L [id number] ####[facility] LABIA [id number] [place] [address] [place] Urobilinogen Ql (U) 0.2 EU/dL Normal 0.2-1.0 EU/dL [facility] Comment on above: Order Comment: Speci men Type: URINE SPECIMENOrdering Facility: [facility] Address: [address] [place] [address] Performed By: #### L [id number] ####[facility] LABCLIA [id number] [place] [address] [place] WBC LM.HPF (Urine sed) [#/Area] 0-5 /HPF Normal 0-5 /HPF [facility] Comment on above: Order Comment: Speci men Type: URINE SPECIMENOrdering Facility: [facility] Address: [address] [place] [address] Performed By: #### L [id number] ####[facility] LABIA [id number] [place] [address] [place] Urinalysis complete panel (U )on 06-01-2024 Bacteria LM.HPF (Urine sed) [#/Area] Negative Normal Negative [facility] Comment on above: Order Comment: Speci men Type: URINE SPECIMENOrdering Facility: [facility] Address: [address] [place] [address] Performed By: #### 2 4356-8 ####[facility] LABIA [id number] [place] [address] [place] Bilirubin Ql (U) Negative Normal Negative [facility] Comment on above: Order Comment: Speci men Type: URINE SPECIMENOrdering Facility: [facility] Address: [address] [place] [address] Performed By: #### 2 4356-8 ####[facility] LABIA [id number] [place] [address] [place] Clarity (Unsp spec) Clear Normal Clear [facility] Comment on above: Order Comment: Speci men Type: URINE SPECIMENOrdering Facility: [facility] Address: [address] [place] [address] Performed By: #### 2 4356-8 ####[facility] LABIA [id number] [place] [address] [place] Color (U) Yellow Normal Yellow [facility] Comment on above: Order Comment: Speci men Type: URINE SPECIMENOrdering Facility: [facility] Address: [address] [place] [address] Performed By: #### 2 4356-8 ####[facility] LABCLIA [id number] [address] Epithelial cells LM.HPF (Urine sed) [#/Area] None Seen Normal [facility] Comment on above: Order Comment: Speci men Type: URINE SPECIMENOrdering Facility: [facility] Address: [address] [place] [address] Performed By: #### 2 4356-8 ####[facility] LABCLIA [id number] [address] [facility] Glucose Test strip (U) [Mass/Vol] Negative Normal Negative [facility] Comment on above: Order Comment: Speci men Type: URINE SPECIMENOrdering Facility: [facility] Address: [address] [place] [address] Performed By: #### 2 4356-8 ####[facility] LABCLIA [id number] [place] [address] [place] Hemoglobin Ql (U) Negative Normal Negative [facility] Comment on above: Order Comment: Speci men Type: URINE SPECIMENOrdering Facility: [facility] Address: [address] [place] [address] Performed By: #### 2 4356-8 ####[facility] LABCLIA [id number] [place] [address] [place] Hyaline casts (Urine sed) [#/Area] 0 /[LPF] Normal 0 /LPF [facility] Comment on above: Order Comment: Speci men Type: URINE SPECIMENOrdering Facility: [facility] Address: [address] [place] [address] Performed By: #### 2 4356-8 ####[facility] LABCLIA [id number] [place] [address] [place] Ketones Ql (U) Negative Normal Negative [facility] Comment on above: Order Comment: Speci men Type: URINE SPECIMENOrdering Facility: [facility] Address: [address] [place] [address] Performed By: #### 2 4356-8 ####[facility] LABCLIA [id number] [place] [address] [place] Leukocyte esterase Test strip Ql (U) Negative Normal Negative [facility] Comment on above: Order Comment: Speci men Type: URINE SPECIMENOrdering Facility: [facility] Address: [address] [place] [address] Performed By: #### 2 4356-8 ####[facility] LABCLIA [id number] [place] [address] [place] Nitrite Ql (U) Negative Normal Negative [facility] Comment on above: Order Comment: Speci men Type: URINE SPECIMENOrdering Facility: [facility] Address: [address] [place] [address] Performed By: #### 2 4356-8 ####[facility] LABCLIA [id number] [place] [address] [place] pH (U) 6.0 [pH] Normal <8.5 [facility] Comment on above: Order Comment: Speci men Type: URINE SPECIMENOrdering Facility: [facility] Address: [address] [place] [address] Performed By: #### 2 4356-8 ####[facility] LABCLIA [id number] [place] [address] [place] Protein (U) [Mass/Vol] Negative Normal Negative [facility] Comment on above: Order Comment: Speci men Type: URINE SPECIMENOrdering Facility: [facility] Address: [address] [place] [address] Performed By: #### 2 4356-8 ####[facility] LABCLIA [id number] [place] [address] [place] RBC LM.HPF (Urine sed) [#/Area] 0-2 /HPF Normal 0-2 /HPF [facility] Comment on above: Order Comment: Speci men Type: URINE SPECIMENOrdering Facility: [facility] Address: [address] [place] [address] Performed By: #### 2 4356-8 ####[facility] LABIA [id number] [place] [address] [place] Specific gravity (U) [Rel density] 1.012 Normal 1.005-1.030 [facility] Comment on above: Order Comment: Speci men Type: URINE SPECIMENOrdering Facility: [facility] Address: [address] [place] [address] Performed By: #### 2 4356-8 ####[facility] LABIA [id number] [place] [address] [place] Urobilinogen Ql (U) 0.2 EU/dL Normal 0.2-1.0 EU/dL [facility] Comment on above: Order Comment: Speci men Type: URINE SPECIMENOrdering Facility: [facility] Address: [address] [place] [address] Performed By: #### 2 4356-8 ####[facility] LABIA [id number] [place] [address] [place] WBC LM.HPF (Urine sed) [#/Area] 0-5 /HPF Normal 0-5 /HPF [facility] Comment on above: Order Comment: Speci men Type: URINE SPECIMENOrdering Facility: [facility] Address: [address] [place] [address] Performed By: #### 2 4356-8 ####[facility] LABIA [id number] [place] [address] [place] XR CHEST 1V FRONTALon 2023 XR CHEST 1V FRONTAL Normal [facility] Basic metabolic 2000 panelon 05-31-2024 Anion gap [Moles/Vol] 12 mmol/L Normal 8-15 [facility] Comment on above: Order Comment: Speci men Type: BLOOD SPECIMENOrdering Facility: [facility] Address: [address] [place] [address] Performed By: #### 2 4321-2 ####[facility] LABCLIA [id number] [place] [address] [place] Calcium [Mass/Vol] 9.2 mg/dL Normal 8.5-10.2 [facility] Comment on above: Order Comment: Speci men Type: BLOOD SPECIMENOrdering Facility: [facility] Address: [address] [place] [address] Performed By: #### 2 4321-2 ####[facility] LABCLIA [id number] [place] [address] [place] Chloride [Moles/Vol] 98 mmol/L Normal 98-107 [facility] Comment on above: Order Comment: Speci men Type: BLOOD SPECIMENOrdering Facility: [facility] Address: [address] [place] [address] Performed By: #### 2 4321-2 ####[facility] LABCLIA [id number] [place] [address] [place] CO2 [Moles/Vol] 28 mmol/L Normal 22-30 [facility] Comment on above: Order Comment: Speci men Type: BLOOD SPECIMENOrdering Facility: [facility] Address: [address] [place] [address] Performed By: #### 2 4321-2 ####[facility] LABCLIA [id number] [place] [address] [place] Creatinine [Mass/Vol] 0.95 mg/dL Normal 0.58-0.96 [facility] Comment on above: Order Comment: Speci men Type: BLOOD SPECIMENOrdering Facility: [facility] Address: [address] [place] [address] Performed By: #### 2 4321-2 ####[facility] LABIA [id number] [place] [address] [place] Creatinine and Glomerular filtration rate.predicted panel (S/P/Bld) 64 mL/min/1.73m??? Normal >=60 [facility] Comment on above: Order Comment: Karen estes Type: BLOOD SPECIMENOrdering Facility: [facility] Address: [address] [place] [address] Result Comment: Carlyn mated Glomerular Filtration Rate (eGFR) is calculated using the 2020 CKD-EPI creatinine equation. This equation utilizes serum creatinine, sex, and age as parameters. The creatinine assay has traceable calibration to isotope dilution-mass spectrometry. Refer to KDIGO guidelines for clinical interpretation. In patients with unstable renal function, e.g. those with acute kidney injury, the eGFR may not accurately reflect actual GFR. Performed By: #### 2 4321-2 ####[facility] LABIA [id number] [place] [address] [place] Glucose [Mass/Vol] 74 mg/dL Normal 74-99 [facility] Comment on above: Order Comment: Karen estes Type: BLOOD SPECIMENOrdering Facility: [facility] Address: [address] [place] [address] Result Comment: The [place] [employer] (ADA) provides guidance for cutoff values for fasting glucose and random glucose. The ADA defines fasting as no caloric intake for at least 8 hours. Fasting plasma glucose results between 100 to 125 mg/dL indicate increased risk for diabetes (prediabetes).Fasting plasma glucose results greater than or equal to 126 mg/dL meet the criteria for diagnosis of diabetes. In the absence of unequivocal hyperglycemia, results should be confirmed by repeat testing. In a patient with classic symptoms of hyperglycemia or hyperglycemic crisis, random plasma glucose results greater than or equal to 200 mg/dL meet the criteria for diagnosis of diabetes.Reference: Standards of Medical Care in Diabetes 2016, [place] [employer]. Diabetes Care. 2016.39(Suppl 1). Performed By: #### 2 4321-2 ####[facility] LABCLIA [id number] [place] [address] [place] Potassium [Moles/Vol] 3.9 mmol/L Normal 3.7-5.1 [facility] Comment on above: Order Comment: Speci men Type: BLOOD SPECIMENOrdering Facility: [facility] Address: [address] [place] [address] Performed By: #### 2 4321-2 ####[facility] LABCLIA [id number] [place] [address] [place] Sodium [Moles/Vol] 138 mmol/L Normal 136-144 [facility] Comment on above: Order Comment: Speci men Type: BLOOD SPECIMENOrdering Facility: [facility] Address: [address] [place] [address] Performed By: #### 2 4321-2 ####[facility] LABCLIA [id number] [place] [address] [place] Urea nitrogen [Mass/Vol] 18 mg/dL Normal 7-21 [facility] Comment on above: Order Comment: Speci men Type: BLOOD SPECIMENOrdering Facility: [facility] Address: [address] [place] [address] Performed By: #### 2 4321-2 ####[facility] LABCLIA [id number] [place] [address] [place] CBC panel Auto (Bld)on 05-31 Erythrocyte distribution width (RBC) [Ratio] 15.4 % High 11.5-15.0 [facility] Comment on above: Order Comment: Speci men Type: BLOOD SPECIMENOrdering Facility: [facility] Address: [address] [place] [address] Performed By: #### 5 8410-2 ####[facility] LABCLIA [id number] [place] [address] [place] Hematocrit (Bld) [Volume fraction] 36.2 % Normal 36.0-46.0 [facility] Comment on above: Order Comment: Speci men Type: BLOOD SPECIMENOrdering Facility: [facility] Address: [address] [place] [address] Performed By: #### 5 8410-2 ####[facility] LABIA [id number] [place] [address] [place] Hemoglobin (Bld) [Mass/Vol] 12.0 g/dL Normal 11.5-15.5 [facility] Comment on above: Order Comment: Speci men Type: BLOOD SPECIMENOrdering Facility: [facility] Address: [address] [place] [address] Performed By: #### 5 8410-2 ####[facility] LABIA [id number] [place] [address] [place] MCH (RBC) [Entitic mass] 31.8 pg Normal 26.0-34.0 [facility] Comment on above: Order Comment: Speci men Type: BLOOD SPECIMENOrdering Facility: [facility] Address: [address] [place] [address] Performed By: #### 5 8410-2 ####[facility] LABIA [id number] [place] [address] [place] MCHC (RBC) [Mass/Vol] 33.1 g/dL Normal 30.5-36.0 [facility] Comment on above: Order Comment: Speci men Type: BLOOD SPECIMENOrdering Facility: [facility] Address: [address] [place] [address] Performed By: #### 5 8410-2 ####[facility] LABIA [id number] [place] [address] [place] MCV (RBC) [Entitic vol] 96.0 fL Normal 80.0-100.0 [facility] Comment on above: Order Comment: Speci men Type: BLOOD SPECIMENOrdering Facility: [facility] Address: [address] [place] [address] Performed By: #### 5 8410-2 ####[facility] LABCLIA [id number] [place] [address] [place] Nucleated RBC (Bld) [#/Vol] 10*3/uL Normal <0.01 [facility] Comment on above: Order Comment: Speci men Type: BLOOD SPECIMENOrdering Facility: [facility] Address: [address] [place] [address] Performed By: #### 5 8410-2 ####[facility] LABIA [id number] [place] [address] [place] Platelet mean volume (Bld) [Entitic vol] 10.8 fL Normal 9.0-12.7 [facility] Comment on above: Order Comment: Speci men Type: BLOOD SPECIMENOrdering Facility: [facility] Address: [address] [place] [address] Performed By: #### 5 8410-2 ####[facility] LABIA [id number] [place] [address] [place] Platelets (Bld) [#/Vol] 182 10*3/uL Normal 150-400 [facility] Comment on above: Order Comment: Speci men Type: BLOOD SPECIMENOrdering Facility: [facility] Address: [address] [place] [address] Performed By: #### 5 8410-2 ####[facility] LABCLIA [id number] [place] [address] [place] RBC (Bld) [#/Vol] 3.77 10*6/uL Low 3.90-5.20 [facility] Comment on above: Order Comment: Speci men Type: BLOOD SPECIMENOrdering Facility: [facility] Address: [address] [place] [address] Performed By: #### 5 8410-2 ####[facility] LABCLIA [id number] [place] [address] [place] WBC (Bld) [#/Vol] 6.91 10*3/uL Normal 3.70-11.00 [facility] Comment on above: Order Comment: Speci men Type: BLOOD SPECIMENOrdering Facility: [facility] Address: [address] [place] [address] Performed By: #### 5 8410-2 ####[facility] [id number] [place] [address] [place] ECG COMPLETEon 05-31-2024 ECG COMPLETE Normal [facility] PT panel Coag (PPP)on 2023 INR Coag (PPP) [Relative time] 1.0 {INR} Normal 0.9-1.3 [facility] Comment on above: Order Comment: Speci men Type: BLOOD SPECIMENOrdering Facility: [facility] Address: [address] [place] [address] Result Comment: Hermila min K Antagonist (VKA) Therapeutic Range: INR 2 to 3 (Target INR of 2.5)Note: For patients treated with VKA drugs, such as warfarin, the [place] [employer] 2012 Guideline recommends a therapeutic INR range of 2 to 3 (target INR of 2.5). This recommendation includes high-risk patients with antiphospholipid syndrome with previous arterial or venous thromboembolism, current-generation mechanical or bioprosthetic aortic heart valve replacement.Note: Patients with mechanical aortic valve replacement and additional risk factors for thromboembolic events (atrial fibrillation, previous thromboembolism, LV dysfunction, hypercoagulable conditions) or an older generation mechanical AVR (i.e., ball in-Cage) or any mechanical MVR should have a INR therapeutic range of 2.5 to 3.5 (target INR of 3).Gabriella GH, et al. Chest 2012, 141:7S-47SNishimura RA, et al. [facility] 2017, 70: 252-289 Performed By: #### 3 4528-0 ####[facility] LABIA [id number] [address] [place] PT Coag (PPP) [Time] 10.5 s Normal 9.7-13.0 [facility] Comment on above: Order Comment: Speci men Type: BLOOD SPECIMENOrdering Facility: [facility] Address: [address] [place] [address] Performed By: #### 3 4528-0 ####[facility] LABCLIA [id number] [place] [address] [place] XR CHEST 1V FRONTAL PORTon 1 08-01-2023 XR CHEST 1V FRONTAL PORT Normal [facility] Basic metabolic 2000 panelon 05-30-2024 Anion gap [Moles/Vol] 13 mmol/L Normal 8-15 [facility] Comment on above: Order Comment: Speci men Type: BLOOD SPECIMENOrdering Facility: [facility] Address: [address] [place] [address] Performed By: #### 2 4321-2 ####[facility] LABCLIA [id number] [place] [address] [place] Calcium [Mass/Vol] 9.3 mg/dL Normal 8.5-10.2 [facility] Comment on above: Order Comment: Speci men Type: BLOOD SPECIMENOrdering Facility: [facility] Address: [address] [place] [address] Performed By: #### 2 4321-2 ####[facility] LABCLIA [id number] [place] [address] [place] Chloride [Moles/Vol] 103 mmol/L Normal 98-107 [facility] Comment on above: Order Comment: Speci men Type: BLOOD SPECIMENOrdering Facility: [facility] Address: [address] [place] [address] Performed By: #### 2 4321-2 ####[facility] LABCLIA [id number] [place] [address] [place] CO2 [Moles/Vol] 25 mmol/L Normal 22-30 [facility] Comment on above: Order Comment: Speci men Type: BLOOD SPECIMENOrdering Facility: [facility] Address: [address] [place] [address] Performed By: #### 2 4321-2 ####[facility] LABCLIA [id number] [place] [id number] [place] Creatinine [Mass/Vol] 1.01 mg/dL High 0.58-0.96 [facility] Comment on above: Order Comment: Speci men Type: BLOOD SPECIMENOrdering Facility: [facility] Address: [address] [place] [address] Performed By: #### 2 4321-2 ####[facility] LABIA [id number] [place] [address] [place] Creatinine and Glomerular filtration rate.predicted panel (S/P/Bld) 60 mL/min/1.73m??? Normal >=60 [facility] Comment on above: Order Comment: Speci men Type: BLOOD SPECIMENOrdering Facility: [facility] Address: [address] [place] [address] Result Comment: Carlyn mated Glomerular Filtration Rate (eGFR) is calculated using the 2020 CKD-EPI creatinine equation. This equation utilizes serum creatinine, sex, and age as parameters. The creatinine assay has traceable calibration to isotope dilution-mass spectrometry. Refer to KDIGO guidelines for clinical interpretation. In patients with unstable renal function, e.g. those with acute kidney injury, the eGFR may not accurately reflect actual GFR. Performed By: #### 2 4321-2 ####[facility] LABIA [id number] [place] [id number] [place] Glucose [Mass/Vol] 73 mg/dL Low 74-99 [facility] Comment on above: Order Comment: Speci men Type: BLOOD SPECIMENOrdering Facility: [facility] Address: [address] [place] [address] Result Comment: The [place] [employer] (ADA) provides guidance for cutoff values for fasting glucose and random glucose. The ADA defines fasting as no caloric intake for at least 8 hours. Fasting plasma glucose results between 100 to 125 mg/dL indicate increased risk for diabetes (prediabetes).Fasting plasma glucose results greater than or equal to 126 mg/dL meet the criteria for diagnosis of diabetes. In the absence of unequivocal hyperglycemia, results should be confirmed by repeat testing. In a patient with classic symptoms of hyperglycemia or hyperglycemic crisis, random plasma glucose results greater than or equal to 200 mg/dL meet the criteria for diagnosis of diabetes.Reference: Standards of Medical Care in Diabetes 2016, [place] [employer]. Diabetes Care. 2016.39(Suppl 1). Performed By: #### 2 4321-2 ####[facility] LABIA [id number] [place] [address] [place] Potassium [Moles/Vol] 3.9 mmol/L Normal 3.7-5.1 [facility] Comment on above: Order Comment: Speci men Type: BLOOD SPECIMENOrdering Facility: [facility] Address: [address] [place] [address] Performed By: #### 2 4321-2 ####[facility] LABIA [id number] [place] [address] [place] Sodium [Moles/Vol] 141 mmol/L Normal 136-144 [facility] Comment on above: Order Comment: Speci men Type: BLOOD SPECIMENOrdering Facility: [facility] Address: [address] [place] [address] Performed By: #### 2 4321-2 ####[facility] LABIA [id number] [place] [address] [place] Urea nitrogen [Mass/Vol] 22 mg/dL High 7-21 [facility] Comment on above: Order Comment: Speci men Type: BLOOD SPECIMENOrdering Facility: [facility] Address: [address] [place] [address] Performed By: #### 2 4321-2 ####[facility] LABIA [id number] [address] [id number] [address] [place] CASE MANAGEMon 12-06-2024 CASE MANAGEM Normal [facility] CBC panel Auto (Bld)on 05-30 Erythrocyte distribution width (RBC) [Ratio] 16.0 % High 11.5-15.0 [facility] Comment on above: Order Comment: Speci men Type: BLOOD SPECIMENOrdering Facility: [facility] Address: [address] [place] [address] Performed By: #### 5 8410-2 ####[facility] LABIA [id number] [place] [address] [place] Hematocrit (Bld) [Volume fraction] 35.6 % Low 36.0-46.0 [facility] Comment on above: Order Comment: Speci men Type: BLOOD SPECIMENOrdering Facility: [facility] Address: [address] [place] [address] Performed By: #### 5 8410-2 ####[facility] LABIA [id number] [place] [address] [place] Hemoglobin (Bld) [Mass/Vol] 11.4 g/dL Low 11.5-15.5 [facility] Comment on above: Order Comment: Speci men Type: BLOOD SPECIMENOrdering Facility: [facility] Address: [address] [place] [address] Performed By: #### 5 8410-2 ####[facility] LABIA [id number] [place] [address] [place] MCH (RBC) [Entitic mass] 30.3 pg Normal 26.0-34.0 [facility] Comment on above: Order Comment: Speci men Type: BLOOD SPECIMENOrdering Facility: [facility] Address: [address] [place] [address] Performed By: #### 5 8410-2 ####[facility] LABIA [id number] [place] [address] [place] MCHC (RBC) [Mass/Vol] 32.0 g/dL Normal 30.5-36.0 [facility] Comment on above: Order Comment: Speci men Type: BLOOD SPECIMENOrdering Facility: [facility] Address: [address] [place] [address] Performed By: #### 5 8410-2 ####[facility] LABIA [id number] [place] [address] [place] MCV (RBC) [Entitic vol] 94.7 fL Normal 80.0-100.0 [facility] Comment on above: Order Comment: Speci men Type: BLOOD SPECIMENOrdering Facility: [facility] Address: [address] [place] [address] Performed By: #### 5 8410-2 ####[facility] LABIA [id number] [place] [address] [place] Nucleated RBC (Bld) [#/Vol] 10*3/uL Normal <0.01 [facility] Comment on above: Order Comment: Speci men Type: BLOOD SPECIMENOrdering Facility: [facility] Address: [address] [place] [address] Performed By: #### 5 8410-2 ####[facility] LABIA [id number] [place] [address] [place] Platelet mean volume (Bld) [Entitic vol] 11.0 fL Normal 9.0-12.7 [facility] Comment on above: Order Comment: Speci men Type: BLOOD SPECIMENOrdering Facility: [facility] Address: [address] [place] [address] Performed By: #### 5 8410-2 ####[facility] LABIA [id number] [place] [address] [place] Platelets (Bld) [#/Vol] 140 10*3/uL Low 150-400 [facility] Comment on above: Order Comment: Speci men Type: BLOOD SPECIMENOrdering Facility: [facility] Address: [address] [place] [address] Performed By: #### 5 8410-2 ####[facility] LABCLIA [id number] [place] [address] [place] RBC (Bld) [#/Vol] 3.76 10*6/uL Low 3.90-5.20 [facility] Comment on above: Order Comment: Speci men Type: BLOOD SPECIMENOrdering Facility: [facility] Address: [address] [place] [address] Performed By: #### 5 8410-2 ####[facility] LABCLIA [id number] [place] [address] [place] WBC (Bld) [#/Vol] 10.50 10*3/uL Normal 3.70-11.00 [facility] Comment on above: Order Comment: Speci men Type: BLOOD SPECIMENOrdering Facility: [facility] Address: [address] [place] [address] Performed By: #### 5 8410-2 ####[facility] LABIA [id number] [place] [address] [place] PT panel Coag (PPP)on 2023 INR Coag (PPP) [Relative time] 1.0 {INR} Normal 0.9-1.3 [facility] Comment on above: Order Comment: Speci men Type: BLOOD SPECIMENOrdering Facility: [facility] Address: [address] [place] [address] Result Comment: Hermila min K Antagonist (VKA) Therapeutic Range: INR 2 to 3 (Target INR of 2.5)Note: For patients treated with VKA drugs, such as warfarin, the [place] [employer] 2012 Guideline recommends a therapeutic INR range of 2 to 3 (target INR of 2.5). This recommendation includes high-risk patients with antiphospholipid syndrome with previous arterial or venous thromboembolism, current-generation mechanical or bioprosthetic aortic heart valve replacement.Note: Patients with mechanical aortic valve replacement and additional risk factors for thromboembolic events (atrial fibrillation, previous thromboembolism, LV dysfunction, hypercoagulable conditions) or an older generation mechanical AVR (i.e., ball in-Cage) or any mechanical MVR should have a INR therapeutic range of 2.5 to 3.5 (target INR of 3).Gabriella GH, et al. Chest 2012, 141:7S-47SSamantha RA, et al. [facility] 2017, 70: 252-289 Performed By: #### 3 4528-0, 88966-4 ####[facility] LABIA [id number] [place] [address] [place] PT Coag (PPP) [Time] 10.9 s Normal 9.7-13.0 [facility] Comment on above: Order Comment: Speci men Type: BLOOD SPECIMENOrdering Facility: [facility] Address: [address] [place] [address] Performed By: #### 3 4528-0, 60959-2 ####[facility] [id number] [place] [id number] [place] THERAPY NTon 05-30-2024 THERAPY NT Normal [facility] THERAPY NT Normal [facility] XR CHEST 1V FRONTAL PORTon 1 07-31-2023 XR CHEST 1V FRONTAL PORT Normal [facility] aPTT PPPon 05-30-2024 aPTT Coag (PPP) [Time] 32.4 s Normal 23.0-32.4 [facility] Comment on above: Order Comment: Speci men Type: BLOOD SPECIMENOrdering Facility: [facility] Address: [address] [place] [address] Performed By: #### 3 4528-0, 59138-5 ####[facility] [id number] [place] [id number] [place] Basic metabolic 2000 panelon 05-29-2024 Anion gap [Moles/Vol] 11 mmol/L Normal 8-15 [facility] Comment on above: Order Comment: Speci men Type: BLOOD SPECIMENOrdering Facility: [facility] Address: [address] [place] [address] Performed By: #### 2 4321-2 ####[facility] LABCLIA [id number] [address] [address] [place] Calcium [Mass/Vol] 9.2 mg/dL Normal 8.5-10.2 [facility] Comment on above: Order Comment: Speci men Type: BLOOD SPECIMENOrdering Facility: [facility] Address: [address] [place], [place] [address] Performed By: #### 2 4321-2 ####[facility] LABCLIA [id number] [place] [address] [place] Chloride [Moles/Vol] 103 mmol/L Normal 98-107 [facility] Comment on above: Order Comment: Speci men Type: BLOOD SPECIMENOrdering Facility: [facility] Address: [address] [place] [address] Performed By: #### 2 4321-2 ####[facility] LABCLIA [id number] [place] [address] [place] CO2 [Moles/Vol] 26 mmol/L Normal 22-30 [facility] Comment on above: Order Comment: Speci men Type: BLOOD SPECIMENOrdering Facility: [facility] Address: [address] [place] [address] Performed By: #### 2 4321-2 ####[facility] LABCLIA [id number] [place] [id number] [place] Creatinine [Mass/Vol] 0.95 mg/dL Normal 0.58-0.96 [facility] Comment on above: Order Comment: Speci men Type: BLOOD SPECIMENOrdering Facility: [facility] Address: [address] [place], [place] [address] Performed By: #### 2 4321-2 ####[facility] LABCLIA [id number] [place] [id number] [place] Creatinine and Glomerular filtration rate.predicted panel (S/P/Bld) 64 mL/min/1.73m??? Normal >=60 [facility] Comment on above: Order Comment: Karen estes Type: BLOOD SPECIMENOrdering Facility: [facility] Address: [address] [place] [address] Result Comment: Carlyn mated Glomerular Filtration Rate (eGFR) is calculated using the 2020 CKD-EPI creatinine equation. This equation utilizes serum creatinine, sex, and age as parameters. The creatinine assay has traceable calibration to isotope dilution-mass spectrometry. Refer to KDIGO guidelines for clinical interpretation. In patients with unstable renal function, e.g. those with acute kidney injury, the eGFR may not accurately reflect actual GFR. Performed By: #### 2 4321-2 ####[facility] LABCLIA [id number] [place] [address] [place] Glucose [Mass/Vol] 107 mg/dL High 74-99 [facility] Comment on above: Order Comment: Karen estes Type: BLOOD SPECIMENOrdering Facility: [facility] Address: [address] [place] [address] Result Comment: The [place] [employer] (ADA) provides guidance for cutoff values for fasting glucose and random glucose. The ADA defines fasting as no caloric intake for at least 8 hours. Fasting plasma glucose results between 100 to 125 mg/dL indicate increased risk for diabetes (prediabetes).Fasting plasma glucose results greater than or equal to 126 mg/dL meet the criteria for diagnosis of diabetes. In the absence of unequivocal hyperglycemia, results should be confirmed by repeat testing. In a patient with classic symptoms of hyperglycemia or hyperglycemic crisis, random plasma glucose results greater than or equal to 200 mg/dL meet the criteria for diagnosis of diabetes.Reference: Standards of Medical Care in Diabetes 2016, [place] [employer]. Diabetes Care. 2016.39(Suppl 1). Performed By: #### 2 4321-2 ####[facility] LABCLIA [id number] [place] [address] [place] Potassium [Moles/Vol] 4.2 mmol/L Normal 3.7-5.1 [facility] Comment on above: Order Comment: Speci men Type: BLOOD SPECIMENOrdering Facility: [facility] Address: [address] [place] [address] Performed By: #### 2 4321-2 ####[facility] LABCLIA [id number] [place] [address] [place] Sodium [Moles/Vol] 140 mmol/L Normal 136-144 [facility] Comment on above: Order Comment: Speci men Type: BLOOD SPECIMENOrdering Facility: [facility] Address: [address] [place] [address] Performed By: #### 2 4321-2 ####[facility] LABCLIA [id number] [place] [address] [place] Urea nitrogen [Mass/Vol] 20 mg/dL Normal 7-21 [facility] Comment on above: Order Comment: Speci men Type: BLOOD SPECIMENOrdering Facility: [facility] Address: [address] [place] [address] Performed By: #### 2 4321-2 ####[facility] LABCLIA [id number] [place] [address] [place] CASE MGT INIT ASSESon 2023 CASE MGT INIT ASSES Normal [facility] CBC panel Auto (Bld)on 05-29 Erythrocyte distribution width (RBC) [Ratio] 16.4 % High 11.5-15.0 [facility] Comment on above: Order Comment: Speci men Type: BLOOD SPECIMENOrdering Facility: [facility] Address: [address] [place] [address] Performed By: #### 5 8410-2 ####[facility] LABCLIA [id number] [place] [address] [place] Hematocrit (Bld) [Volume fraction] 37.7 % Normal 36.0-46.0 [facility] Comment on above: Order Comment: Speci men Type: BLOOD SPECIMENOrdering Facility: [facility] Address: [address] [place] [address] Performed By: #### 5 8410-2 ####[facility] LABCLIA [id number] [place] [address] [place] Hemoglobin (Bld) [Mass/Vol] 12.7 g/dL Normal 11.5-15.5 [facility] Comment on above: Order Comment: Speci men Type: BLOOD SPECIMENOrdering Facility: [facility] Address: [address] [place] [address] Performed By: #### 5 8410-2 ####[facility] [facility] LABCLIA [id number] [place] [address] [place] MCH (RBC) [Entitic mass] 31.2 pg Normal 26.0-34.0 [facility] Comment on above: Order Comment: Speci men Type: BLOOD SPECIMENOrdering Facility: [facility] Address: [address] [place] [address] Performed By: #### 5 8410-2 ####[facility] LABCLIA [id number] [place] [address] [place] MCHC (RBC) [Mass/Vol] 33.7 g/dL Normal 30.5-36.0 [facility] Comment on above: Order Comment: Speci men Type: BLOOD SPECIMENOrdering Facility: [facility] Address: [address] [place] [address] Performed By: #### 5 8410-2 ####[facility] LABCLIA [id number] [place] [address] [place] MCV (RBC) [Entitic vol] 92.6 fL Normal 80.0-100.0 [facility] Comment on above: Order Comment: Speci men Type: BLOOD SPECIMENOrdering Facility: [facility] Address: [address] [place] [address] Performed By: #### 5 8410-2 ####[facility] LABCLIA [id number] [place] [address] [place] Nucleated RBC (Bld) [#/Vol] 10*3/uL Normal <0.01 [facility] Comment on above: Order Comment: Speci men Type: BLOOD SPECIMENOrdering Facility: [facility] Address: [address] [place] [address] Performed By: #### 5 8410-2 ####[facility] LABIA [id number] [place] [address] [place] Platelet mean volume (Bld) [Entitic vol] 10.9 fL Normal 9.0-12.7 [facility] Comment on above: Order Comment: Speci men Type: BLOOD SPECIMENOrdering Facility: [facility] Address: [address] [place] [address] Performed By: #### 5 8410-2 ####[facility] [id number] [place] [address] [place] Platelets (Bld) [#/Vol] 118 10*3/uL Low 150-400 [facility] Comment on above: Order Comment: Speci men Type: BLOOD SPECIMENOrdering Facility: [facility] Address: [address] [place] [address] Result Comment: Resu lts checked and verified.No clot detected. Performed By: #### 5 8410-2 ####[facility] LABIA [id number] [place] [address] [place] RBC (Bld) [#/Vol] 4.07 10*6/uL Normal 3.90-5.20 [facility] Comment on above: Order Comment: Speci men Type: BLOOD SPECIMENOrdering Facility: [facility] Address: [address] [place] [address] Performed By: #### 5 8410-2 ####[facility] LABIA [id number] [address] [place] [address] [place] WBC (Bld) [#/Vol] 14.61 10*3/uL High 3.70-11.00 [facility] Comment on above: Order Comment: Speci men Type: BLOOD SPECIMENOrdering Facility: [facility] Address: [address] [place] [address] Performed By: #### 5 8410-2 ####[facility] LABCLIA [id number] [address] [place] PT panel Coag (PPP)on 2023 INR Coag (PPP) [Relative time] 1.0 {INR} Normal 0.9-1.3 [facility] Comment on above: Order Comment: Speci franklyn Type: BLOOD SPECIMENOrdering Facility: [facility] Address: [address] [place] [address] Result Comment: Hermila min K Antagonist (VKA) Therapeutic Range: INR 2 to 3 (Target INR of 2.5)Note: For patients treated with VKA drugs, such as warfarin, the [employer] [employer] 2012 Guideline recommends a therapeutic INR range of 2 to 3 (target INR of 2.5). This recommendation includes high-risk patients with antiphospholipid syndrome with previous arterial or venous thromboembolism, current-generation mechanical or bioprosthetic aortic heart valve replacement.Note: Patients with mechanical aortic valve replacement and additional risk factors for thromboembolic events (atrial fibrillation, previous thromboembolism, LV dysfunction, hypercoagulable conditions) or an older generation mechanical AVR (i.e., ball in-Cage) or any mechanical MVR should have a INR therapeutic range of 2.5 to 3.5 (target INR of 3).Gabriella GH, et al. Chest 2012, 141:7S-47SNishbernardo RA, et al. JACC 2017, 70: 252-289 Performed By: #### 3 4528-0, 05728-4 ####[facility] LABCLIA [id number] [place] [address] [place] PT Coag (PPP) [Time] 11.3 s Normal 9.7-13.0 [facility] Comment on above: Order Comment: Speci men Type: BLOOD SPECIMENOrdering Facility: [facility] Address: [address] [place] [address] Performed By: #### 3 4528-0, 21706-6 ####[facility] LABCLIA [id number] [place] [address] [place] THERAPY NTon 05-29-2024 THERAPY NT Normal [facility] XR CHEST 1V FRONTAL PORTon 1 07-30-2023 XR CHEST 1V FRONTAL PORT Normal [facility] aPTT PPPon 05-29-2024 aPTT Coag (PPP) [Time] 30.9 s Normal 23.0-32.4 [facility] Comment on above: Order Comment: Speci men Type: BLOOD SPECIMENOrdering Facility: [facility] Address: [address] [place] [address] Performed By: #### 3 4528-0, 67577-0 ####[facility] LABCLIA [id number] [place] [address] [place] ARTERIAL BLOOD GASESon 05-28 Base excess Calc (Bld) [Moles/Vol] 3 mmol/L High 0-2 [facility] Comment on above: Order Comment: Speci men Type: ARTERIAL BLOOD SPECIMENOrdering Facility: [facility] Address: [address] [place] [address] Performed By: #### A LLBG ####[facility] LABCLIA [id number] [place] [address] [place] Body temperature 98.6 [degF] Normal [facility] Comment on above: Order Comment: Speci men Type: ARTERIAL BLOOD SPECIMENOrdering Facility: [facility] Address: [address] [place] [address] Performed By: #### A LLBG ####[facility] LABCLIA [id number] [place] [address] [place] Calcium.ionized (Bld) [Mass/Vol] 1.22 mmol/L Normal 1.08-1.30 [facility] Comment on above: Order Comment: Speci men Type: ARTERIAL BLOOD SPECIMENOrdering Facility: [facility] Address: [address] [place] [address] Performed By: #### A LLBG ####[facility] LABCLIA [id number] [place] [address] [place] Calcium.ionized adjusted to pH 7.4 (BldA) [Moles/Vol] 1.22 mmol/L Normal 1.08-1.30 [facility] Comment on above: Order Comment: Speci men Type: ARTERIAL BLOOD SPECIMENOrdering Facility: [facility] Address: [address] [place] [address] Performed By: #### A LLBG ####[facility] LABIA [id number] [place] [address] [place] Carboxyhemoglobin (BldA) [Mass fraction] 2.1 % High 0.0-2.0 [facility] Comment on above: Order Comment: Speci men Type: ARTERIAL BLOOD SPECIMENOrdering Facility: [facility] Address: [address] [place] [address] Result Comment: Carb oxyhemoglobin Reference Range for Smokers: 2.0-8.0% Performed By: #### A LLBG ####[facility] LABCLIA [id number] [place] [address] [place] CO2 (Bld) [Partial pressure] 45 mm Hg Normal 36-46 [facility] Comment on above: Order Comment: Speci men Type: ARTERIAL BLOOD SPECIMENOrdering Facility: [facility] Address: [address] [place] [address] Performed By: #### A LLBG ####[facility] LABCLIA [id number] [place] [address] [place] Glucose [Mass/Vol] 115 mg/dL High 60-105 [facility] Comment on above: Order Comment: Speci men Type: ARTERIAL BLOOD SPECIMENOrdering Facility: [facility] Address: [address] [place] [address] Performed By: #### A LLBG ####[facility] LABCLIA [id number] [place] [address] [place] HCO3 (Bld) [Moles/Vol] 27 mmol/L High 22-26 [facility] Comment on above: Order Comment: Speci men Type: ARTERIAL BLOOD SPECIMENOrdering Facility: [facility] Address: [address] [place] [address] Performed By: #### A LLBG ####[facility] LABCLIA [id number] [place] [address] [place] Hematocrit (Bld) [Volume fraction] 40.6 % Normal 36.0-46.0 [facility] Comment on above: Order Comment: Speci men Type: ARTERIAL BLOOD SPECIMENOrdering Facility: [facility] Address: [address] [place] [address] Performed By: #### A LLBG ####[facility] LABCLIA [id number] [place] [address] [place] Hemoglobin (Bld) [Mass/Vol] 13.2 g/dL Normal 11.5-15.5 [facility] Comment on above: Order Comment: Speci men Type: ARTERIAL BLOOD SPECIMENOrdering Facility: [facility] Address: [address] [place] [address] Performed By: #### A LLBG ####[facility] LABCLIA [id number] [place] [address] [place] Lactate [Moles/Vol] 0.9 mmol/L Normal 0.5-2.2 [facility] Comment on above: Order Comment: Speci men Type: ARTERIAL BLOOD SPECIMENOrdering Facility: [facility] Address: [address] [place] [address] Performed By: #### A LLBG ####[facility] LABCLIA [id number] [place] [id number] [place] LITERS 6 Liters/min Normal [facility] Comment on above: Order Comment: Speci men Type: ARTERIAL BLOOD SPECIMENOrdering Facility: [facility] Address: [address] [place] [id number] Performed By: #### A LLBG ####[facility] LABCLIA [id number] [place] [id number] [place] Methemoglobin (Bld) [Mass fraction] 1.5 % Normal 0.0-1.5 [facility] Comment on above: Order Comment: Speci men Type: ARTERIAL BLOOD SPECIMENOrdering Facility: [facility] Address: [address] [place], [place] [id number] Performed By: #### A LLBG ####[facility] LABIA [id number] [place] [address] [place] O2 THERAPY NC = Nasal Cannula Normal [facility] Comment on above: Order Comment: Speci men Type: ARTERIAL BLOOD SPECIMENOrdering Facility: [facility] Address: [address] [place], [place] [id number] Performed By: #### A LLBG ####[facility] LABIA [id number] [address] [address] [place] Oxygen (Bld) [Partial pressure] 98 mm Hg High 85-95 [facility] Comment on above: Order Comment: Speci men Type: ARTERIAL BLOOD SPECIMENOrdering Facility: [facility] Address: [address] [place] [address] Performed By: #### A LLBG ####[facility] LABIA [id number] [place] [id number] [place] Oxyhemoglobin (BldA) [Mass fraction] 94 % Low 95-98 [facility] Comment on above: Order Comment: Speci men Type: ARTERIAL BLOOD SPECIMENOrdering Facility: [facility] Address: [address] [place] [address] Performed By: #### A LLBG ####[facility] LABCLIA [id number] [place] [address] [place] pH (Bld) 7.40 [pH] Normal 7.35-7.45 [facility] Comment on above: Order Comment: Speci men Type: ARTERIAL BLOOD SPECIMENOrdering Facility: [facility] Address: [address] [place] [address] Performed By: #### A LLBG ####[facility] LABCLIA [id number] [place] [address] [place] Potassium [Moles/Vol] 3.9 mmol/L Normal 3.5-5.0 [facility] Comment on above: Order Comment: Speci men Type: ARTERIAL BLOOD SPECIMENOrdering Facility: [facility] Address: [address] [place] [address] Performed By: #### A LLBG ####[facility] LABCLIA [id number] [place] [address] [place] Sodium [Moles/Vol] 138 mmol/L Normal 136-144 [facility] Comment on above: Order Comment: Speci men Type: ARTERIAL BLOOD SPECIMENOrdering Facility: [facility] Address: [address] [place] [address] Performed By: #### A LLBG ####[facility] LABCLIA [id number] [place] [address] [place] Base excess Calc (Bld) [Moles/Vol] 2 mmol/L Normal 0-2 [facility] Comment on above: Order Comment: Speci men Type: ARTERIAL BLOOD SPECIMENOrdering Facility: [facility] Address: [address] [place] [address] Performed By: #### A LLBG ####[facility] LABCLIA [id number] [place] [address] [place] Body temperature 98.6 [degF] Normal [facility] Comment on above: Order Comment: Speci men Type: ARTERIAL BLOOD SPECIMENOrdering Facility: [facility] Address: [address] [place] [address] Performed By: #### A LLBG ####[facility] LABCLIA [id number] [place] [address] [place] Calcium.ionized (Bld) [Mass/Vol] 1.28 mmol/L Normal 1.08-1.30 [facility] Comment on above: Order Comment: Speci men Type: ARTERIAL BLOOD SPECIMENOrdering Facility: [facility] Address: [address] [place] [address] Performed By: #### A LLBG ####[facility] LABCLIA [id number] [place] [address] [place] Calcium.ionized adjusted to pH 7.4 (BldA) [Moles/Vol] 1.30 mmol/L Normal 1.08-1.30 [facility] Comment on above: Order Comment: Speci men Type: ARTERIAL BLOOD SPECIMENOrdering Facility: [facility] Address: [address] [place] [address] Performed By: #### A LLBG ####[facility] LABCLIA [id number] [place] [address] [place] Carboxyhemoglobin (BldA) [Mass fraction] 1.5 % Normal 0.0-2.0 [facility] Comment on above: Order Comment: Speci men Type: ARTERIAL BLOOD SPECIMENOrdering Facility: [facility] Address: [address] [place] [address] Result Comment: Carb oxyhemoglobin Reference Range for Smokers: 2.0-8.0% Performed By: #### A LLBG ####[facility] LABCLIA [id number] [place] [address] [place] CO2 (Bld) [Partial pressure] 40 mm Hg Normal 36-46 [facility] Comment on above: Order Comment: Speci men Type: ARTERIAL BLOOD SPECIMENOrdering Facility: [facility] Address: [address] [place] [address] Performed By: #### A LLBG ####[facility] LABCLIA [id number] [place] [address] [place] Glucose [Mass/Vol] 114 mg/dL High 60-105 [facility] Comment on above: Order Comment: Speci men Type: ARTERIAL BLOOD SPECIMENOrdering Facility: [facility] Address: [address] [place] [address] Performed By: #### A LLBG ####[facility] LABCLIA [id number] [place] [address] [place] HCO3 (Bld) [Moles/Vol] 26 mmol/L Normal 22-26 [facility] Comment on above: Order Comment: Speci men Type: ARTERIAL BLOOD SPECIMENOrdering Facility: [facility] Address: [address] [place] [address] Performed By: #### A LLBG ####[facility] LABCLIA [id number] [place] [address] [place] Hematocrit (Bld) [Volume fraction] 41.1 % Normal 36.0-46.0 [facility] Comment on above: Order Comment: Speci men Type: ARTERIAL BLOOD SPECIMENOrdering Facility: [facility] Address: [address] [place] [address] Performed By: #### A LLBG ####[facility] LABCLIA [id number] [place] [address] [place] Hemoglobin (Bld) [Mass/Vol] 13.4 g/dL Normal 11.5-15.5 [facility] Comment on above: Order Comment: Speci men Type: ARTERIAL BLOOD SPECIMENOrdering Facility: [facility] Address: [address] [place] [address] Performed By: #### A LLBG ####[facility] LABCLIA [id number] [place] [address] [place] Lactate [Moles/Vol] 1.0 mmol/L Normal 0.5-2.2 [facility] Comment on above: Order Comment: Speci men Type: ARTERIAL BLOOD SPECIMENOrdering Facility: [facility] Address: [address] [place], [place] [phone] Performed By: #### A LLBG ####[facility] LABIA [id number] [place] [address] [place] Methemoglobin (Bld) [Mass fraction] 1.0 % Normal 0.0-1.5 [facility] Comment on above: Order Comment: Speci men Type: ARTERIAL BLOOD SPECIMENOrdering Facility: [facility] Address: [address] [place] [address] Performed By: #### A LLBG ####[facility] LABIA [id number] [place] [address] [place] O2 THERAPY NC = Nasal Cannula Normal [facility] Comment on above: Order Comment: Speci men Type: ARTERIAL BLOOD SPECIMENOrdering Facility: [facility] Address: [address] [place] [address] Performed By: #### A LLBG ####[facility] LABIA [id number] [place] [address] [place] Oxygen (Bld) [Partial pressure] 78 mm Hg Low 85-95 [facility] Comment on above: Order Comment: Speci men Type: ARTERIAL BLOOD SPECIMENOrdering Facility: [facility] Address: [address] [place], [place] [phone] Performed By: #### A LLBG ####[facility] LABIA [id number] [place] [id number] [place] Oxyhemoglobin (BldA) [Mass fraction] 93 % Low 95-98 [facility] Comment on above: Order Comment: Speci men Type: ARTERIAL BLOOD SPECIMENOrdering Facility: [facility] Address: [address] [place] [address] Performed By: #### A LLBG ####[facility] LABCLIA [id number] [place] [address] [place] pH (Bld) 7.43 [pH] Normal 7.35-7.45 [facility] Comment on above: Order Comment: Speci men Type: ARTERIAL BLOOD SPECIMENOrdering Facility: [facility] Address: [address] [place] [address] Performed By: #### A LLBG ####[facility] LABIA [id number] [place] [address] [place] Potassium [Moles/Vol] 3.9 mmol/L Normal 3.5-5.0 [facility] Comment on above: Order Comment: Speci men Type: ARTERIAL BLOOD SPECIMENOrdering Facility: [facility] Address: [address] [place] [address] Performed By: #### A LLBG ####[facility] LABIA [id number] [place] [address] [place] Sodium [Moles/Vol] 139 mmol/L Normal 136-144 [facility] Comment on above: Order Comment: Speci men Type: ARTERIAL BLOOD SPECIMENOrdering Facility: [facility] Address: [address] [place] [address] Performed By: #### A LLBG ####[facility] LABCLIA [id number] [place] [address] [place] Base excess Calc (Bld) [Moles/Vol] 4 mmol/L High 0-2 [facility] Comment on above: Order Comment: Speci men Type: ARTERIAL BLOOD SPECIMENOrdering Facility: [facility] Address: [address] [place] [address] Performed By: #### A LLBG ####[facility] LABCLIA [id number] [place] [address] [place] Body temperature 98.6 [degF] Normal [facility] Comment on above: Order Comment: Speci men Type: ARTERIAL BLOOD SPECIMENOrdering Facility: [facility] Address: [address] [place] [address] Performed By: #### A LLBG ####[facility] LABCLIA [id number] [place] [address] [place] Calcium.ionized (Bld) [Mass/Vol] 1.25 mmol/L Normal 1.08-1.30 [facility] Comment on above: Order Comment: Speci men Type: ARTERIAL BLOOD SPECIMENOrdering Facility: [facility] Address: [address] [place] [address] Performed By: #### A LLBG ####[facility] LABCLIA [id number] [place] [address] [place] Calcium.ionized adjusted to pH 7.4 (BldA) [Moles/Vol] 1.24 mmol/L Normal 1.08-1.30 [facility] Comment on above: Order Comment: Speci men Type: ARTERIAL BLOOD SPECIMENOrdering Facility: [facility] Address: [address] [place] [address] Performed By: #### A LLBG ####[facility] LABCLIA [id number] [place] [address] [place] [place] Carboxyhemoglobin (BldA) [Mass fraction] 2.3 % High 0.0-2.0 [facility] Comment on above: Order Comment: Speci men Type: ARTERIAL BLOOD SPECIMENOrdering Facility: [facility] Address: [address] [place] [address] Result Comment: Carb oxyhemoglobin Reference Range for Smokers: 2.0-8.0% Performed By: #### A LLBG ####[facility] LABCLIA [id number] [place] [address] [place] CO2 (Bld) [Partial pressure] 51 mm Hg High 36-46 [facility] Comment on above: Order Comment: Speci men Type: ARTERIAL BLOOD SPECIMENOrdering Facility: [facility] Address: [address] [place] [address] Performed By: #### A LLBG ####[facility] LABCLIA [id number] [place] [address] [place] Glucose [Mass/Vol] 120 mg/dL High 60-105 [facility] Comment on above: Order Comment: Speci men Type: ARTERIAL BLOOD SPECIMENOrdering Facility: [facility] Address: [address] [place] [address] Performed By: #### A LLBG ####[facility] LABCLIA [id number] [place] [address] [place] HCO3 (Bld) [Moles/Vol] 29 mmol/L High 22-26 [facility] Comment on above: Order Comment: Speci men Type: ARTERIAL BLOOD SPECIMENOrdering Facility: [facility] Address: [address] [place] [address] Performed By: #### A LLBG ####[facility] LABCLIA [id number] [place] [address] [place] Hematocrit (Bld) [Volume fraction] 41.6 % Normal 36.0-46.0 [facility] Comment on above: Order Comment: Speci men Type: ARTERIAL BLOOD SPECIMENOrdering Facility: [facility] Address: [address] [place] [address] Performed By: #### A LLBG ####[facility] LABCLIA [id number] [place] [address] [place] Hemoglobin (Bld) [Mass/Vol] 13.5 g/dL Normal 11.5-15.5 [facility] Comment on above: Order Comment: Speci men Type: ARTERIAL BLOOD SPECIMENOrdering Facility: [facility] Address: [address] [place] [address] Performed By: #### A LLBG ####[facility] LABCLIA [id number] [place] [address] [place] Lactate [Moles/Vol] 0.8 mmol/L Normal 0.5-2.2 [facility] Comment on above: Order Comment: Speci men Type: ARTERIAL BLOOD SPECIMENOrdering Facility: [facility] Address: [address] [place] [address] Performed By: #### A LLBG ####[facility] LABCLIA [id number] [place] [address] [place] Methemoglobin (Bld) [Mass fraction] 0.5 % Normal 0.0-1.5 [facility] Comment on above: Order Comment: Speci men Type: ARTERIAL BLOOD SPECIMENOrdering Facility: [facility] Address: [address] [place] [address] Performed By: #### A LLBG ####[facility] LABIA [id number] [place] [address] [place] O2 THERAPY NC = Nasal Cannula Normal [facility] Comment on above: Order Comment: Speci men Type: ARTERIAL BLOOD SPECIMENOrdering Facility: [facility] Address: [address] [place] [address] Performed By: #### A LLBG ####[facility] LABIA [id number] [place] [address] [place] Oxygen (Bld) [Partial pressure] 102 mm Hg High 85-95 [facility] Comment on above: Order Comment: Speci men Type: ARTERIAL BLOOD SPECIMENOrdering Facility: [facility] Address: [address] [place] [address] Performed By: #### A LLBG ####[facility] LABCLIA [id number] [place] [id number] [place] Oxyhemoglobin (BldA) [Mass fraction] 95 % Normal 95-98 [facility] Comment on above: Order Comment: Speci men Type: ARTERIAL BLOOD SPECIMENOrdering Facility: [facility] Address: [address] [place] [address] Performed By: #### A LLBG ####[facility] LABCLIA [id number] [place] [address] [place] pH (Bld) 7.38 [pH] Normal 7.35-7.45 [facility] Comment on above: Order Comment: Speci men Type: ARTERIAL BLOOD SPECIMENOrdering Facility: [facility] Address: [address] [place] [address] Performed By: #### A LLBG ####[facility] LABCLIA [id number] [place] [address] [place] Potassium [Moles/Vol] 4.0 mmol/L Normal 3.5-5.0 [facility] Comment on above: Order Comment: Speci men Type: ARTERIAL BLOOD SPECIMENOrdering Facility: [facility] Address: [address] [place] [address] Performed By: #### A LLBG ####[facility] LABCLIA [id number] [place] [address] [place] Sodium [Moles/Vol] 137 mmol/L Normal 136-144 [facility] Comment on above: Order Comment: Speci men Type: ARTERIAL BLOOD SPECIMENOrdering Facility: [facility] Address: [address] [place] [address] Performed By: #### A LLBG ####[facility] LABCLIA [id number] [place] [address] [place] Base excess Calc (Bld) [Moles/Vol] 3 mmol/L High 0-2 [facility] Comment on above: Order Comment: Speci men Type: ARTERIAL BLOOD SPECIMENOrdering Facility: [facility] Address: [address] [place] [address] Performed By: #### A LLBG ####[facility] LABCLIA [id number] [place] [address] [place] Body temperature 98.6 [degF] Normal [facility] Comment on above: Order Comment: Speci men Type: ARTERIAL BLOOD SPECIMENOrdering Facility: [facility] Address: [address] [place] [address] Performed By: #### A LLBG ####[facility] LABCLIA [id number] [place] [address] [place] Calcium.ionized (Bld) [Mass/Vol] 1.29 mmol/L Normal 1.08-1.30 [facility] Comment on above: Order Comment: Speci men Type: ARTERIAL BLOOD SPECIMENOrdering Facility: [facility] Address: [address] [place] [address] Performed By: #### A LLBG ####[facility] LABCLIA [id number] [place] [address] [place] Calcium.ionized adjusted to pH 7.4 (BldA) [Moles/Vol] 1.28 mmol/L Normal 1.08-1.30 [facility] Comment on above: Order Comment: Speci men Type: ARTERIAL BLOOD SPECIMENOrdering Facility: [facility] Address: [address] [place] [address] Performed By: #### A LLBG ####[facility] LABCLIA [id number] [place] [address] [place] Carboxyhemoglobin (BldA) [Mass fraction] 1.9 % Normal 0.0-2.0 [facility] Comment on above: Order Comment: Speci men Type: ARTERIAL BLOOD SPECIMENOrdering Facility: [facility] Address: [address] [place] [address] Result Comment: Carb oxyhemoglobin Reference Range for Smokers: 2.0-8.0% Performed By: #### A LLBG ####[facility] LABCLIA [id number] [place] [address] [place] CO2 (Bld) [Partial pressure] 49 mm Hg High 36-46 [facility] Comment on above: Order Comment: Speci men Type: ARTERIAL BLOOD SPECIMENOrdering Facility: [facility] Address: [address] [place] [address] Performed By: #### A LLBG ####[facility] LABCLIA [id number] [place] [address] [place] Glucose [Mass/Vol] 114 mg/dL High 60-105 [facility] Comment on above: Order Comment: Speci men Type: ARTERIAL BLOOD SPECIMENOrdering Facility: [facility] Address: [address] [place] [address] Performed By: #### A LLBG ####[facility] LABCLIA [id number] [place] [address] [place] HCO3 (Bld) [Moles/Vol] 28 mmol/L High 22-26 [facility] Comment on above: Order Comment: Speci men Type: ARTERIAL BLOOD SPECIMENOrdering Facility: [facility] Address: [address] [place] [address] Performed By: #### A LLBG ####[facility] LABCLIA [id number] [place] [address] [place] Hematocrit (Bld) [Volume fraction] 42.3 % Normal 36.0-46.0 [facility] Comment on above: Order Comment: Speci men Type: ARTERIAL BLOOD SPECIMENOrdering Facility: [facility] Address: [address] [place] [address] Performed By: #### A LLBG ####[facility] LABCLIA [id number] [place] [address] [place] Hemoglobin (Bld) [Mass/Vol] 13.8 g/dL Normal 11.5-15.5 [facility] Comment on above: Order Comment: Speci men Type: ARTERIAL BLOOD SPECIMENOrdering Facility: [facility] Address: [address] [place] [address] Performed By: #### A LLBG ####[facility] LABCLIA [id number] [place] [address] [place] Lactate [Moles/Vol] 1.7 mmol/L Normal 0.5-2.2 [facility] Comment on above: Order Comment: Speci men Type: ARTERIAL BLOOD SPECIMENOrdering Facility: [facility] Address: [address] [place] [address] Performed By: #### A LLBG ####[facility] LABCLIA [id number] [place] [address] [place] Methemoglobin (Bld) [Mass fraction] 0.8 % Normal 0.0-1.5 [facility] Comment on above: Order Comment: Speci men Type: ARTERIAL BLOOD SPECIMENOrdering Facility: [facility] Address: [address] [place] [address] Performed By: #### A LLBG ####[facility] LABIA [id number] [place] [address] [place] O2 THERAPY NC = Nasal Cannula Normal [facility] Comment on above: Order Comment: Speci men Type: ARTERIAL BLOOD SPECIMENOrdering Facility: [facility] Address: [address] [place] [address] Performed By: #### A LLBG ####[facility] LABIA [id number] [place] [address] [place] Oxygen (Bld) [Partial pressure] 103 mm Hg High 85-95 [facility] Comment on above: Order Comment: Speci men Type: ARTERIAL BLOOD SPECIMENOrdering Facility: [facility] Address: [address] [place] [address] Performed By: #### A LLBG ####[facility] LABCLIA [id number] [place] [address] [place] Oxyhemoglobin (BldA) [Mass fraction] 96 % Normal 95-98 [facility] Comment on above: Order Comment: Speci men Type: ARTERIAL BLOOD SPECIMENOrdering Facility: [facility] Address: [address] [place] [address] Performed By: #### A LLBG ####[facility] LABCLIA [id number] [place] [address] [place] pH (Bld) 7.38 [pH] Normal 7.35-7.45 [facility] Comment on above: Order Comment: Speci men Type: ARTERIAL BLOOD SPECIMENOrdering Facility: [facility] Address: [address] [place] [address] Performed By: #### A LLBG ####[facility] LABCLIA [id number] [place] [address] [place] Potassium [Moles/Vol] 3.9 mmol/L Normal 3.5-5.0 [facility] Comment on above: Order Comment: Speci men Type: ARTERIAL BLOOD SPECIMENOrdering Facility: [facility] Address: [address] [place] [address] Performed By: #### A LLBG ####[facility] LABCLIA [id number] [place] [address] [place] Sodium [Moles/Vol] 139 mmol/L Normal 136-144 [facility] Comment on above: Order Comment: Speci men Type: ARTERIAL BLOOD SPECIMENOrdering Facility: [facility] Address: [address] [place] [address] Performed By: #### A LLBG ####[facility] LABCLIA [id number] [place] [address] [place] Basic metabolic 2000 panelon 05-28-2024 Anion gap [Moles/Vol] 12 mmol/L Normal 8-15 [facility] Comment on above: Order Comment: Speci men Type: BLOOD SPECIMENOrdering Facility: [facility] Address: [address] [place] [address] Performed By: #### 1 9123-9, 2777, 63366-5 ####[facility] LABCLIA [id number] [place] [id number] [place] Calcium [Mass/Vol] 9.1 mg/dL Normal 8.5-10.2 [facility] Comment on above: Order Comment: Speci men Type: BLOOD SPECIMENOrdering Facility: [facility] Address: [address] [place] [address] Performed By: #### 1 9123-9, 27712-23, ####[facility] LABCLIA [id number] [place] [address] [place] Chloride [Moles/Vol] 104 mmol/L Normal 98-107 [facility] Comment on above: Order Comment: Speci men Type: BLOOD SPECIMENOrdering Facility: [facility] Address: [address] [place] [address] Performed By: #### 1 9123-9, 27712-23, ####[facility] LABCLIA [id number] [place] [address] [place] CO2 [Moles/Vol] 26 mmol/L Normal 22-30 [facility] Comment on above: Order Comment: Speci men Type: BLOOD SPECIMENOrdering Facility: [facility] Address: [address] [place] [address] Performed By: #### 1 9123-9, 27712-23, ####[facility] LABCLIA [id number] [address] [address] [place] Creatinine [Mass/Vol] 0.81 mg/dL Normal 0.58-0.96 [facility] Comment on above: Order Comment: Speci men Type: BLOOD SPECIMENOrdering Facility: [facility] Address: [address] [place] [address] Performed By: #### 1 9123-9, 27712-23, 87427-1 ####[facility] LABCLIA [id number] [place] [address] [place] Creatinine and Glomerular filtration rate.predicted panel (S/P/Bld) 78 mL/min/1.73m??? Normal >=60 [facility] Comment on above: Order Comment: Karen estes Type: BLOOD SPECIMENOrdering Facility: [facility] Address: [address] [place] [address] Result Comment: Carlyn mated Glomerular Filtration Rate (eGFR) is calculated using the 2020 CKD-EPI creatinine equation. This equation utilizes serum creatinine, sex, and age as parameters. The creatinine assay has traceable calibration to isotope dilution-mass spectrometry. Refer to KDIGO guidelines for clinical interpretation. In patients with unstable renal function, e.g. those with acute kidney injury, the eGFR may not accurately reflect actual GFR. Performed By: #### 1 9123-9, 2777-1, 75523-5 ####[facility] LABIA [id number] [place] [address] [place] Glucose [Mass/Vol] 114 mg/dL High 74-99 [facility] Comment on above: Order Comment: Karen estes Type: BLOOD SPECIMENOrdering Facility: [facility] Address: [address] [place] [address] Result Comment: The [place] [employer] (ADA) provides guidance for cutoff values for fasting glucose and random glucose. The ADA defines fasting as no caloric intake for at least 8 hours. Fasting plasma glucose results between 100 to 125 mg/dL indicate increased risk for diabetes (prediabetes).Fasting plasma glucose results greater than or equal to 126 mg/dL meet the criteria for diagnosis of diabetes. In the absence of unequivocal hyperglycemia, results should be confirmed by repeat testing. In a patient with classic symptoms of hyperglycemia or hyperglycemic crisis, random plasma glucose results greater than or equal to 200 mg/dL meet the criteria for diagnosis of diabetes.Reference: Standards of Medical Care in Diabetes 2016, [place] [employer]. Diabetes Care. 2016.39(Suppl 1). Performed By: #### 1 9123-9, 2777-1, 14195-5 ####[facility] LABCLIA [id number] [place] [address] [place] Potassium [Moles/Vol] 4.0 mmol/L Normal 3.7-5.1 [facility] Comment on above: Order Comment: Speci men Type: BLOOD SPECIMENOrdering Facility: [facility] Address: [address] [place] [address] Performed By: #### 1 9123-9, 2777-1, 39288-4 ####[facility] LABCLIA [id number] [place] [address] [place] Sodium [Moles/Vol] 142 mmol/L Normal 136-144 [facility] Comment on above: Order Comment: Speci men Type: BLOOD SPECIMENOrdering Facility: [facility] Address: [address] [place] [address] Performed By: #### 1 9123-9, 2777-1, 95695-4 ####[facility] LABCLIA [id number] [place] [address] [place] Urea nitrogen [Mass/Vol] 15 mg/dL Normal 7-21 [facility] Comment on above: Order Comment: Speci men Type: BLOOD SPECIMENOrdering Facility: [facility] Address: [address] [place] [address] Performed By: #### 1 9123-9, 2777-1, 91180-6 ####[facility] LABCLIA [id number] [place] [address] [place] CBC panel Auto (Bld)on 05-28 Erythrocyte distribution width (RBC) [Ratio] 16.2 % High 11.5-15.0 [facility] Comment on above: Order Comment: Speci men Type: BLOOD SPECIMENOrdering Facility: [facility] Address: [address] [place] [address] Performed By: #### 5 8410-2 ####[facility] LABCLIA [id number] [place] [id number] [place] Hematocrit (Bld) [Volume fraction] 39.1 % Normal 36.0-46.0 [facility] Comment on above: Order Comment: Speci men Type: BLOOD SPECIMENOrdering Facility: [facility] Address: [address] [place] [address] Performed By: #### 5 8410-2 ####[facility] LABCLIA [id number] [place] [address] [place] Hemoglobin (Bld) [Mass/Vol] 13.4 g/dL Normal 11.5-15.5 [facility] Comment on above: Order Comment: Speci men Type: BLOOD SPECIMENOrdering Facility: [facility] Address: [address] [place] [address] Performed By: #### 5 8410-2 ####[facility] LABCLIA [id number] [place] [address] [place] MCH (RBC) [Entitic mass] 30.5 pg Normal 26.0-34.0 [facility] Comment on above: Order Comment: Speci men Type: BLOOD SPECIMENOrdering Facility: [facility] Address: [address] [place] [address] Performed By: #### 5 8410-2 ####[facility] LABIA [id number] [place] [address] [place] MCHC (RBC) [Mass/Vol] 34.3 g/dL Normal 30.5-36.0 [facility] Comment on above: Order Comment: Speci men Type: BLOOD SPECIMENOrdering Facility: [facility] Address: [address] [place] [address] Performed By: #### 5 8410-2 ####[facility] LABCLIA [id number] [place] [address] [place] MCV (RBC) [Entitic vol] 89.1 fL Normal 80.0-100.0 [facility] Comment on above: Order Comment: Speci men Type: BLOOD SPECIMENOrdering Facility: [facility] Address: [address] [place] [address] Performed By: #### 5 8410-2 ####[facility] LABIA [id number] [place] [address] [place] Nucleated RBC (Bld) [#/Vol] 10*3/uL Normal <0.01 [facility] Comment on above: Order Comment: Speci men Type: BLOOD SPECIMENOrdering Facility: [facility] Address: [address] [place] [address] Performed By: #### 5 8410-2 ####[facility] LABIA [id number] [place] [address] [place] Platelet mean volume (Bld) [Entitic vol] 10.1 fL Normal 9.0-12.7 [facility] Comment on above: Order Comment: Speci men Type: BLOOD SPECIMENOrdering Facility: [facility] Address: [address] [place] [address] Performed By: #### 5 8410-2 ####[facility] LABIA [id number] [place] [address] [place] Platelets (Bld) [#/Vol] 134 10*3/uL Low 150-400 [facility] Comment on above: Order Comment: Speci men Type: BLOOD SPECIMENOrdering Facility: [facility] Address: [address] [place] [address] Performed By: #### 5 8410-2 ####[facility] LABIA [id number] [place] [address] [place] RBC (Bld) [#/Vol] 4.39 10*6/uL Normal 3.90-5.20 [facility] Comment on above: Order Comment: Speci men Type: BLOOD SPECIMENOrdering Facility: [facility] Address: [address] [place] [address] Performed By: #### 5 8410-2 ####[facility] LABCLIA [id number] [address] [address] [place] WBC (Bld) [#/Vol] 14.44 10*3/uL High 3.70-11.00 [facility] Comment on above: Order Comment: Speci men Type: BLOOD SPECIMENOrdering Facility: [facility] Address: [address] [place] [address] Performed By: #### 5 8410-2 ####[facility] LABCLIA [id number] [place] [address] [place] [facility] Comprehensive metabolic 2000 panelon 05-28-2024 Albumin [Mass/Vol] 3.4 g/dL Low 3.9-4.9 [facility] Comment on above: Order Comment: Speci men Type: BLOOD SPECIMENOrdering Facility: [facility] Address: [address] [place] [address] Performed By: #### 2 4323-8 ####[facility] LABCLIA [id number] [place] [id number] [place] ALP [Catalytic activity/Vol] 42 U/L Normal 34-123 [facility] Comment on above: Order Comment: Speci men Type: BLOOD SPECIMENOrdering Facility: [facility] Address: [address] [place] [address] Performed By: #### 2 4323-8 ####[facility] LABCLIA [id number] [place] [id number] [place] ALT [Catalytic activity/Vol] 11 U/L Normal 7-38 [facility] Comment on above: Order Comment: Speci men Type: BLOOD SPECIMENOrdering Facility: [facility] Address: [address] [place] [address] Performed By: #### 2 4323-8 ####[facility] LABCLIA [id number] [place] [id number] [place] Anion gap [Moles/Vol] 9 mmol/L Normal 8-15 [facility] Comment on above: Order Comment: Speci men Type: BLOOD SPECIMENOrdering Facility: [facility] Address: [address] [place] [address] Performed By: #### 2 4323-8 ####[facility] LABCLIA [id number] [place] [address] [place] AST [Catalytic activity/Vol] 26 U/L Normal 13-35 [facility] Comment on above: Order Comment: Speci men Type: BLOOD SPECIMENOrdering Facility: [facility] Address: [address] [place] [address] Performed By: #### 2 4323-8 ####[facility] LABCLIA [id number] [place] [address] [place] Bilirubin [Mass/Vol] 0.8 mg/dL Normal 0.2-1.3 [facility] Comment on above: Order Comment: Speci men Type: BLOOD SPECIMENOrdering Facility: [facility] Address: [address] [place], [place] [address] Performed By: #### 2 4323-8 ####[facility] LABCLIA [id number] [place] [address] [place] Calcium [Mass/Vol] 9.1 mg/dL Normal 8.5-10.2 [facility] Comment on above: Order Comment: Speci men Type: BLOOD SPECIMENOrdering Facility: [facility] Address: [address] [place] [id number] Performed By: #### 2 4323-8 ####[facility] LABCLIA [id number] [place] [address] [place] Chloride [Moles/Vol] 105 mmol/L Normal 98-107 [facility] Comment on above: Order Comment: Speci men Type: BLOOD SPECIMENOrdering Facility: [facility] Address: [address] [place] [address] Performed By: #### 2 4323-8 ####[facility] LABCLIA [id number] [place] [address] [place] CO2 [Moles/Vol] 27 mmol/L Normal 22-30 [facility] Comment on above: Order Comment: Speci men Type: BLOOD SPECIMENOrdering Facility: [facility] Address: [address] [place] [address] Performed By: #### 2 4323-8 ####[facility] LABIA [id number] [place] [address] [place] Creatinine [Mass/Vol] 0.83 mg/dL Normal 0.58-0.96 [facility] Comment on above: Order Comment: Speci men Type: BLOOD SPECIMENOrdering Facility: [facility] Address: [address] [place] [address] Performed By: #### 2 4323-8 ####[facility] LABIA [id number] [place] [address] [place] Creatinine and Glomerular filtration rate.predicted panel (S/P/Bld) 75 mL/min/1.73m??? Normal >=60 [facility] Comment on above: Order Comment: Speci men Type: BLOOD SPECIMENOrdering Facility: [facility] Address: [address] [place] [address] Result Comment: Carlyn mated Glomerular Filtration Rate (eGFR) is calculated using the 2020 CKD-EPI creatinine equation. This equation utilizes serum creatinine, sex, and age as parameters. The creatinine assay has traceable calibration to isotope dilution-mass spectrometry. Refer to KDIGO guidelines for clinical interpretation. In patients with unstable renal function, e.g. those with acute kidney injury, the eGFR may not accurately reflect actual GFR. Performed By: #### 2 4323-8 ####[facility] LABCLIA [id number] [place] [id number] [place] Glucose [Mass/Vol] 112 mg/dL High 74-99 [facility] Comment on above: Order Comment: Speci men Type: BLOOD SPECIMENOrdering Facility: [facility] Address: [address] [place] [address] Result Comment: The [place] [employer] (ADA) provides guidance for cutoff values for fasting glucose and random glucose. The ADA defines fasting as no caloric intake for at least 8 hours. Fasting plasma glucose results between 100 to 125 mg/dL indicate increased risk for diabetes (prediabetes).Fasting plasma glucose results greater than or equal to 126 mg/dL meet the criteria for diagnosis of diabetes. In the absence of unequivocal hyperglycemia, results should be confirmed by repeat testing. In a patient with classic symptoms of hyperglycemia or hyperglycemic crisis, random plasma glucose results greater than or equal to 200 mg/dL meet the criteria for diagnosis of diabetes.Reference: Standards of Medical Care in Diabetes 2016, [place] [employer]. Diabetes Care. 2016.39(Suppl 1). Performed By: #### 2 4323-8 ####[facility] LABCLIA [id number] [place] [address] [place] Potassium [Moles/Vol] 4.0 mmol/L Normal 3.7-5.1 [facility] Comment on above: Order Comment: Speci men Type: BLOOD SPECIMENOrdering Facility: [facility] Address: [address] [place] [address] Performed By: #### 2 4323-8 ####[facility] LABCLIA [id number] [place] [address] [place] Protein [Mass/Vol] 5.2 g/dL Low 6.3-8.0 [facility] Comment on above: Order Comment: Speci men Type: BLOOD SPECIMENOrdering Facility: [facility] Address: [address] [place] [address] Performed By: #### 2 4323-8 ####[facility] LABCLIA [id number] [facility] [place] [address] [place] Sodium [Moles/Vol] 141 mmol/L Normal 136-144 [facility] Comment on above: Order Comment: Speci men Type: BLOOD SPECIMENOrdering Facility: [facility] Address: [address] [place] [address] Performed By: #### 2 4323-8 ####[facility] LABCLIA [id number] [place] [address] [place] Urea nitrogen [Mass/Vol] 16 mg/dL Normal 7-21 [facility] Comment on above: Order Comment: Speci men Type: BLOOD SPECIMENOrdering Facility: [facility] Address: [address] [place] [address] Performed By: #### 2 4323-8 ####[facility] LABCLIA [id number] [place] [address] [place] Fibrinogen PPP-mCncon 2023 Fibrinogen Coag (PPP) [Mass/Vol] 571 mg/dL High 200-400 [facility] Comment on above: Order Comment: Speci men Type: BLOOD SPECIMENOrdering Facility: [facility] Address: [address] [place] [address] Performed By: #### 1 4979-9, 3255-7, 12947-8 ####[facility] LABIA [id number] [place] [address] [place] Fibrinogen Coag (PPP) [Mass/Vol] 476 mg/dL High 200-400 [facility] Comment on above: Order Comment: Speci men Type: BLOOD SPECIMENOrdering Facility: [facility] Address: [address] [place] [address] Performed By: #### 1 4979-9, 07513-5, 3255-7 ####[facility] LABIA [id number] [place] [address] [place] Fibrinogen Coag (PPP) [Mass/Vol] 415 mg/dL High 200-400 [facility] Comment on above: Order Comment: Speci men Type: BLOOD SPECIMENOrdering Facility: [facility] Address: [address] [place] [address] Performed By: #### 1 4979-9, 3255-7, 93840-3 ####[facility] LABCLIA [id number] [place] [id number] [place] Hematocrit Auto (Bld) [Volum e fraction]on 05-28-2024 Hematocrit (Bld) [Volume fraction] 37.3 % Normal 36.0-46.0 [facility] Comment on above: Order Comment: Speci men Type: BLOOD SPECIMENOrdering Facility: [facility] Address: [address] [place] [address] Performed By: #### 7 77-3, 4544-3, 718-7 ####[facility] LABIA [id number] [place] [address] [place] Hematocrit (Bld) [Volume fraction] 38.3 % Normal 36.0-46.0 [facility] Comment on above: Order Comment: Speci men Type: BLOOD SPECIMENOrdering Facility: [facility] Address: [address] [place] [address] Performed By: #### 4 544-3, 718-7, 777-3 ####[facility] LABIA [id number] [place] [address] [place] Hematocrit (Bld) [Volume fraction] 38.1 % Normal 36.0-46.0 [facility] Comment on above: Order Comment: Speci men Type: BLOOD SPECIMENOrdering Facility: [facility] Address: [address] [place] [address] Performed By: #### 7 77-3, 4544-3, 718-7 ####[facility] LABIA [id number] [place] [address] [place] Hgb Bld-mCncon 05-28-2024 Hemoglobin (Bld) [Mass/Vol] 12.7 g/dL Normal 11.5-15.5 [facility] Comment on above: Order Comment: Speci men Type: BLOOD SPECIMENOrdering Facility: [facility] Address: [address] [place], [place] [address] Performed By: #### 7 77-3, 4544-3, 718-7 ####[facility] LABCLIA [id number] [place] [id number] [place] Hemoglobin (Bld) [Mass/Vol] 13.1 g/dL Normal 11.5-15.5 [facility] Comment on above: Order Comment: Speci men Type: BLOOD SPECIMENOrdering Facility: [facility] Address: [address] [place] [address] Performed By: #### 4 544-3, 718-7, 777-3 ####[facility] LABIA [id number] [place] [address] [place] Hemoglobin (Bld) [Mass/Vol] 13.3 g/dL Normal 11.5-15.5 [facility] Comment on above: Order Comment: Speci men Type: BLOOD SPECIMENOrdering Facility: [facility] Address: [address] [place] [address] Performed By: #### 7 77-3, 4544-3, 718-7 ####[facility] LABIA [id number] [place] [address] [place] Magnesium SerPl-mCncon 05-28 Magnesium [Mass/Vol] 2.1 mg/dL Normal 1.7-2.3 [facility] Comment on above: Order Comment: Speci men Type: BLOOD SPECIMENOrdering Facility: [facility] Address: [address] [place] [address] Performed By: #### 1 9123-9, 2777-1, 00746-9 ####[facility] LABIA [id number] [place] [address] [place] PT panel Coag (PPP)on 2023 INR Coag (PPP) [Relative time] 1.1 {INR} Normal 0.9-1.3 [facility] Comment on above: Order Comment: Karen estes Type: BLOOD SPECIMENOrdering Facility: [facility] Address: [address] [place] [address] Result Comment: Hermila min K Antagonist (VKA) Therapeutic Range: INR 2 to 3 (Target INR of 2.5)Note: For patients treated with VKA drugs, such as warfarin, the [place] [employer] 2012 Guideline recommends a therapeutic INR range of 2 to 3 (target INR of 2.5). This recommendation includes high-risk patients with antiphospholipid syndrome with previous arterial or venous thromboembolism, current-generation mechanical or bioprosthetic aortic heart valve replacement.Note: Patients with mechanical aortic valve replacement and additional risk factors for thromboembolic events (atrial fibrillation, previous thromboembolism, LV dysfunction, hypercoagulable conditions) or an older generation mechanical AVR (i.e., ball in-Cage) or any mechanical MVR should have a INR therapeutic range of 2.5 to 3.5 (target INR of 3).Gabriella GH, et al. Chest 2012, 141:7S-47SNishimlaura RA, et al. [facility] 2017, 70: 252-289 Performed By: #### 1 4979-9, 3255-7, 44698-4 ####[facility] [id number] [place] [address] [place] PT Coag (PPP) [Time] 11.7 s Normal 9.7-13.0 [facility] Comment on above: Order Comment: Karen estes Type: BLOOD SPECIMENOrdering Facility: [facility] Address: [address] [place] [address] Performed By: #### 1 4979-9, 3255-7, 67605-1 ####[facility] [id number] [place] [address] [place] INR Coag (PPP) [Relative time] 1.1 {INR} Normal 0.9-1.3 [facility] Comment on above: Order Comment: Karen estes Type: BLOOD SPECIMENOrdering Facility: [facility] Address: [address] [place] [address] Result Comment: Hermila min K Antagonist (VKA) Therapeutic Range: INR 2 to 3 (Target INR of 2.5)Note: For patients treated with VKA drugs, such as warfarin, the [place] [employer] 2012 Guideline recommends a therapeutic INR range of 2 to 3 (target INR of 2.5). This recommendation includes high-risk patients with antiphospholipid syndrome with previous arterial or venous thromboembolism, current-generation mechanical or bioprosthetic aortic heart valve replacement.Note: Patients with mechanical aortic valve replacement and additional risk factors for thromboembolic events (atrial fibrillation, previous thromboembolism, LV dysfunction, hypercoagulable conditions) or an older generation mechanical AVR (i.e., ball in-Cage) or any mechanical MVR should have a INR therapeutic range of 2.5 to 3.5 (target INR of 3).Gabriella ARAYA, et al. Chest 2012, 141:7S-47SNishbernardo RA, et al. [facility] 2017, 70: 252-289 Performed By: #### 1 4979-9, 13168-0, 3255-7 ####[facility] [id number] [place] [address] [place] PT Coag (PPP) [Time] 11.6 s Normal 9.7-13.0 [facility] Comment on above: Order Comment: Karen estes Type: BLOOD SPECIMENOrdering Facility: [facility] Address: [address] [place] [address] Performed By: #### 1 4979-9, 01341-1, 3255-7 ####[facility] LABIA [id number] [place] [id number] [place] INR Coag (PPP) [Relative time] 1.1 {INR} Normal 0.9-1.3 [facility] Comment on above: Order Comment: Speci men Type: BLOOD SPECIMENOrdering Facility: [facility] Address: [address] [place] [address] Result Comment: Hermila min K Antagonist (VKA) Therapeutic Range: INR 2 to 3 (Target INR of 2.5)Note: For patients treated with VKA drugs, such as warfarin, the [place] [employer] 2012 Guideline recommends a therapeutic INR range of 2 to 3 (target INR of 2.5). This recommendation includes high-risk patients with antiphospholipid syndrome with previous arterial or venous thromboembolism, current-generation mechanical or bioprosthetic aortic heart valve replacement.Note: Patients with mechanical aortic valve replacement and additional risk factors for thromboembolic events (atrial fibrillation, previous thromboembolism, LV dysfunction, hypercoagulable conditions) or an older generation mechanical AVR (i.e., ball in-Cage) or any mechanical MVR should have a INR therapeutic range of 2.5 to 3.5 (target INR of 3).Gabriella GH, et al. Chest 2012, 141:7S-47SNishimura RA, et al. [facility] 2017, 70: 252-289 Performed By: #### 1 4979-9, 3255-7, 51140-6 ####[facility] LABCLIA [id number] [facility] [place] [address] [place] PT Coag (PPP) [Time] 11.6 s Normal 9.7-13.0 [facility] Comment on above: Order Comment: Speci men Type: BLOOD SPECIMENOrdering Facility: [facility] Address: [address] [place] [address] Performed By: #### 1 4979-9, 3255-7, 96199-5 ####[facility] LABCLIA [id number] [facility] [place] [address] [place] INR Coag (PPP) [Relative time] 1.1 {INR} Normal 0.9-1.3 [facility] Comment on above: Order Comment: Speci men Type: BLOOD SPECIMENOrdering Facility: [facility] Address: [address] [place] [address] Result Comment: Hermila min K Antagonist (VKA) Therapeutic Range: INR 2 to 3 (Target INR of 2.5)Note: For patients treated with VKA drugs, such as warfarin, the [place] [employer] 2012 Guideline recommends a therapeutic INR range of 2 to 3 (target INR of 2.5). This recommendation includes high-risk patients with antiphospholipid syndrome with previous arterial or venous thromboembolism, current-generation mechanical or bioprosthetic aortic heart valve replacement.Note: Patients with mechanical aortic valve replacement and additional risk factors for thromboembolic events (atrial fibrillation, previous thromboembolism, LV dysfunction, hypercoagulable conditions) or an older generation mechanical AVR (i.e., ball in-Cage) or any mechanical MVR should have a INR therapeutic range of 2.5 to 3.5 (target INR of 3).Gabriella GH, et al. Chest 2012, 141:7S-47SNishimura RA, et al. [facility] 2017, 70: 252-289 Performed By: #### 1 4979-9, 34428-6 ####[facility] LABCLIA [id number] [place] [address] [place] PT Coag (PPP) [Time] 11.7 s Normal 9.7-13.0 [facility] Comment on above: Order Comment: Karen estes Type: BLOOD SPECIMENOrdering Facility: [facility] Address: [address] [place] [address] Performed By: #### 1 4979-9, 77578-4 ####[facility] LABCLIA [id number] [place] [address] [place] Phosphate SerPl-mCncon 05-28 Phosphate [Mass/Vol] 4.5 mg/dL Normal 2.7-4.8 [facility] Comment on above: Order Comment: Karen estes Type: BLOOD SPECIMENOrdering Facility: [facility] Address: [address] [place] [address] Performed By: #### 1 9123-9, 2777-1, 46025-3 ####[facility] LABCLIA [id number] [place] [address] [place] Platelets Auto (Bld) [#/Vol] on 05-28-2024 Platelets (Bld) [#/Vol] 122 10*3/uL Low 150-400 [facility] Comment on above: Order Comment: Speci men Type: BLOOD SPECIMENOrdering Facility: [facility] Address: [address] [place] [address] Result Comment: Resu lts checked and verified.No clot detected. Performed By: #### 7 77-3, 4544-3, 718-7 ####[facility] LABCLIA [id number] [place] [address] [place] Platelets (Bld) [#/Vol] 125 10*3/uL Low 150-400 [facility] Comment on above: Order Comment: Speci men Type: BLOOD SPECIMENOrdering Facility: [facility] Address: [address] [place] [address] Result Comment: Resu lts checked and verified.No clot detected. Performed By: #### 4 544-3, 718-7, 777-3 ####[facility] LABCLIA [id number] [place] [address] [place] Platelets (Bld) [#/Vol] 126 10*3/uL Low 150-400 [facility] Comment on above: Order Comment: Speci men Type: BLOOD SPECIMENOrdering Facility: [facility] Address: [address] [place] [address] Result Comment: No c lot detected.Results checked and verified. Performed By: #### 7 77-3, 4544-3, 718-7 ####[facility] LABIA [id number] [address] [place] THERAPY NTon 05-28-2024 THERAPY NT Normal [facility] THERAPY NT Normal [facility] XR ABDOMEN 1V SUPINEon 05-28 XR ABDOMEN 1V SUPINE Normal [facility] XR CHEST 1V FRONTAL PORTon 1 07-29-2023 XR CHEST 1V FRONTAL PORT Normal [facility] aPTT PPPon 05-28-2024 aPTT Coag (PPP) [Time] 29.3 s Normal 23.0-32.4 [facility] Comment on above: Order Comment: Speci men Type: BLOOD SPECIMENOrdering Facility: [facility] Address: [address] [place] [address] Performed By: #### 1 4979-9, 3255-7, 09438-7 ####[facility] LABIA [id number] [place] [address] [place] aPTT Coag (PPP) [Time] 27.9 s Normal 23.0-32.4 [facility] Comment on above: Order Comment: Speci men Type: BLOOD SPECIMENOrdering Facility: [facility] Address: [address] [place] [address] Performed By: #### 1 4979-9, 19911-8, 3257 ####[facility] LABIA [id number] [place] [address] [place] aPTT Coag (PPP) [Time] 29.4 s Normal 23.0-32.4 [facility] Comment on above: Order Comment: Speci men Type: BLOOD SPECIMENOrdering Facility: [facility] Address: [address] [place] [address] Performed By: #### 1 4979-9, 3255-7, 97771-3 ####[facility] LABIA [id number] [place] [address] [place] aPTT Coag (PPP) [Time] 28.6 s Normal 23.0-32.4 [facility] Comment on above: Order Comment: Speci men Type: BLOOD SPECIMENOrdering Facility: [facility] Address: [address] [place] [address] Performed By: #### 1 4979-9, 81698-8 ####[facility] LABIA [id number] [place] [address] [place] ANES POSTPROC EVALon 024 ANES POSTPROC EVAL Normal [facility] ANES PRE-OPon 05-27-2024 ANES PRE-OP Normal [facility] ARTERIAL BLOOD GASESon 05-27 Base excess Calc (Bld) [Moles/Vol] 3 mmol/L High 0-2 [facility] Comment on above: Order Comment: Speci men Type: ARTERIAL BLOOD SPECIMENOrdering Facility: [facility] Address: [address] [place] [address] Performed By: #### A LLBG ####[facility] LABIA [id number] [place] [address] [place] Body temperature 98.6 [degF] Normal [facility] Comment on above: Order Comment: Speci men Type: ARTERIAL BLOOD SPECIMENOrdering Facility: [facility] Address: [address] [place] [address] Performed By: #### A LLBG ####[facility] LABIA [id number] [place] [address] [place] Calcium.ionized (Bld) [Mass/Vol] 1.28 mmol/L Normal 1.08-1.30 [facility] Comment on above: Order Comment: Speci men Type: ARTERIAL BLOOD SPECIMENOrdering Facility: [facility] Address: [address] [place] [address] Performed By: #### A LLBG ####[facility] LABIA [id number] [place] [address] [place] Calcium.ionized adjusted to pH 7.4 (BldA) [Moles/Vol] 1.29 mmol/L Normal 1.08-1.30 [facility] Comment on above: Order Comment: Speci men Type: ARTERIAL BLOOD SPECIMENOrdering Facility: [facility] Address: [address] [place] [address] Performed By: #### A LLBG ####[facility] LABIA [id number] [place] [address] [place] Carboxyhemoglobin (BldA) [Mass fraction] 2.6 % High 0.0-2.0 [facility] Comment on above: Order Comment: Speci men Type: ARTERIAL BLOOD SPECIMENOrdering Facility: [facility] Address: [address] [place] [address] Result Comment: Carb oxyhemoglobin Reference Range for Smokers: 2.0-8.0% Performed By: #### A LLBG ####[facility] LABCLIA [id number] [place] [address] [place] CO2 (Bld) [Partial pressure] 44 mm Hg Normal 36-46 [facility] Comment on above: Order Comment: Speci men Type: ARTERIAL BLOOD SPECIMENOrdering Facility: [facility] Address: [address] [place] [address] Performed By: #### A LLBG ####[facility] LABCLIA [id number] [place] [address] [place] Glucose [Mass/Vol] 125 mg/dL High 60-105 [facility] Comment on above: Order Comment: Speci men Type: ARTERIAL BLOOD SPECIMENOrdering Facility: [facility] Address: [address] [place] [address] Performed By: #### A LLBG ####[facility] LABCLIA [id number] [place] [address] [place] HCO3 (Bld) [Moles/Vol] 28 mmol/L High 22-26 [facility] Comment on above: Order Comment: Speci men Type: ARTERIAL BLOOD SPECIMENOrdering Facility: [facility] Address: [address] [place] [address] Performed By: #### A LLBG ####[facility] LABCLIA [id number] [place] [address] [place] Hematocrit (Bld) [Volume fraction] 42.9 % Normal 36.0-46.0 [facility] Comment on above: Order Comment: Speci men Type: ARTERIAL BLOOD SPECIMENOrdering Facility: [facility] Address: [address] [place] [address] Performed By: #### A LLBG ####[facility] LABIA [id number] [place] [address] [place] Hemoglobin (Bld) [Mass/Vol] 14.0 g/dL Normal 11.5-15.5 [facility] Comment on above: Order Comment: Speci men Type: ARTERIAL BLOOD SPECIMENOrdering Facility: [facility] Address: [address] [place] [address] Performed By: #### A LLBG ####[facility] LABIA [id number] [place] [address] [place] Lactate [Moles/Vol] 1.7 mmol/L Normal 0.5-2.2 [facility] Comment on above: Order Comment: Speci men Type: ARTERIAL BLOOD SPECIMENOrdering Facility: [facility] Address: [address] [place] [address] Performed By: #### A LLBG ####[facility] LABIA [id number] [place] [address] [place] Methemoglobin (Bld) [Mass fraction] 1.6 % High 0.0-1.5 [facility] Comment on above: Order Comment: Speci men Type: ARTERIAL BLOOD SPECIMENOrdering Facility: [facility] Address: [address] [place] [address] Performed By: #### A LLBG ####[facility] LABIA [id number] [place] [address] [place] O2 THERAPY NC = Nasal Cannula Normal [facility] Comment on above: Order Comment: Speci men Type: ARTERIAL BLOOD SPECIMENOrdering Facility: [facility] Address: [address] [place] [address] Performed By: #### A LLBG ####[facility] LABIA [id number] [place] [address] [place] Oxygen (Bld) [Partial pressure] 119 mm Hg High 85-95 [facility] Comment on above: Order Comment: Speci men Type: ARTERIAL BLOOD SPECIMENOrdering Facility: [facility] Address: [address] [place] [address] Performed By: #### A LLBG ####[facility] LABCLIA [id number] [place] [address] [place] Oxyhemoglobin (BldA) [Mass fraction] 95 % Normal 95-98 [facility] Comment on above: Order Comment: Speci men Type: ARTERIAL BLOOD SPECIMENOrdering Facility: [facility] Address: [address] [place] [address] Performed By: #### A LLBG ####[facility] LABCLIA [id number] [place] [address] [place] pH (Bld) 7.41 [pH] Normal 7.35-7.45 [facility] Comment on above: Order Comment: Speci men Type: ARTERIAL BLOOD SPECIMENOrdering Facility: [facility] Address: [address] [place] [address] Performed By: #### A LLBG ####[facility] LABCLIA [id number] [place] [address] [place] Potassium [Moles/Vol] 4.0 mmol/L Normal 3.5-5.0 [facility] Comment on above: Order Comment: Speci men Type: ARTERIAL BLOOD SPECIMENOrdering Facility: [facility] Address: [address] [place] [address] Performed By: #### A LLBG ####[facility] LABCLIA [id number] [place] [address] [place] Sodium [Moles/Vol] 140 mmol/L Normal 136-144 [facility] Comment on above: Order Comment: Speci men Type: ARTERIAL BLOOD SPECIMENOrdering Facility: [facility] Address: [address] [place] [address] Performed By: #### A LLBG ####[facility] LABCLIA [id number] [place] [address] [place] Base excess Calc (Bld) [Moles/Vol] 4 mmol/L High 0-2 [facility] Comment on above: Order Comment: Speci men Type: ARTERIAL BLOOD SPECIMENOrdering Facility: [facility] Address: [address] [place] [address] Performed By: #### A LLBG ####[facility] LABIA [id number] [place] [address] [place] Body temperature 98.6 [degF] Normal [facility] Comment on above: Order Comment: Speci men Type: ARTERIAL BLOOD SPECIMENOrdering Facility: [facility] Address: [address] [place] [address] Performed By: #### A LLBG ####[facility] [id number] [place] [address] [place] Calcium.ionized (Bld) [Mass/Vol] 1.26 mmol/L Normal 1.08-1.30 [facility] Comment on above: Order Comment: Speci men Type: ARTERIAL BLOOD SPECIMENOrdering Facility: [facility] Address: [address] [place] [address] Performed By: #### A LLBG ####[facility] [id number] [place] [address] [place] Calcium.ionized adjusted to pH 7.4 (BldA) [Moles/Vol] 1.28 mmol/L Normal 1.08-1.30 [facility] Comment on above: Order Comment: Speci men Type: ARTERIAL BLOOD SPECIMENOrdering Facility: [facility] Address: [address] [place] [address] Performed By: #### A LLBG ####[facility] LABIA [id number] [place] [address] [place] Carboxyhemoglobin (BldA) [Mass fraction] 2.3 % High 0.0-2.0 [facility] Comment on above: Order Comment: Speci men Type: ARTERIAL BLOOD SPECIMENOrdering Facility: [facility] Address: [address] [place] [address] Result Comment: Carb oxyhemoglobin Reference Range for Smokers: 2.0-8.0% Performed By: #### A LLBG ####[facility] LABCLIA [id number] [place] [address] [place] CO2 (Bld) [Partial pressure] 43 mm Hg Normal 36-46 [facility] Comment on above: Order Comment: Speci men Type: ARTERIAL BLOOD SPECIMENOrdering Facility: [facility] Address: [address] [place] [address] Performed By: #### A LLBG ####[facility] LABCLIA [id number] [place] [address] [place] Glucose [Mass/Vol] 127 mg/dL High 60-105 [facility] Comment on above: Order Comment: Speci men Type: ARTERIAL BLOOD SPECIMENOrdering Facility: [facility] Address: [address] [place] [address] Performed By: #### A LLBG ####[facility] LABCLIA [id number] [place] [address] [place] HCO3 (Bld) [Moles/Vol] 28 mmol/L High 22-26 [facility] Comment on above: Order Comment: Speci men Type: ARTERIAL BLOOD SPECIMENOrdering Facility: [facility] Address: [address] [place] [address] Performed By: #### A LLBG ####[facility] LABCLIA [id number] [place] [address] [place] Hematocrit (Bld) [Volume fraction] 43.4 % Normal 36.0-46.0 [facility] Comment on above: Order Comment: Speci men Type: ARTERIAL BLOOD SPECIMENOrdering Facility: [facility] Address: [address] [place] [address] Performed By: #### A LLBG ####[facility] LABIA [id number] [place] [address] [place] Hemoglobin (Bld) [Mass/Vol] 14.1 g/dL Normal 11.5-15.5 [facility] Comment on above: Order Comment: Speci men Type: ARTERIAL BLOOD SPECIMENOrdering Facility: [facility] Address: [address] [place] [address] Performed By: #### A LLBG ####[facility] LABIA [id number] [place] [address] [place] Lactate [Moles/Vol] 1.8 mmol/L Normal 0.5-2.2 [facility] Comment on above: Order Comment: Speci men Type: ARTERIAL BLOOD SPECIMENOrdering Facility: [facility] Address: [address] [place] [address] Performed By: #### A LLBG ####[facility] LABIA [id number] [place] [address] [place] Methemoglobin (Bld) [Mass fraction] 0.8 % Normal 0.0-1.5 [facility] Comment on above: Order Comment: Speci men Type: ARTERIAL BLOOD SPECIMENOrdering Facility: [facility] Address: [address] [place] [address] Performed By: #### A LLBG ####[facility] LABIA [id number] [place] [address] [place] O2 THERAPY NC = Nasal Cannula Normal [facility] Comment on above: Order Comment: Speci men Type: ARTERIAL BLOOD SPECIMENOrdering Facility: [facility] Address: [address] [place] [address] Performed By: #### A LLBG ####[facility] LABIA [id number] [place] [address] [place] Oxygen (Bld) [Partial pressure] 92 mm Hg Normal 85-95 [facility] Comment on above: Order Comment: Speci men Type: ARTERIAL BLOOD SPECIMENOrdering Facility: [facility] Address: [address] [place] [address] Performed By: #### A LLBG ####[facility] LABIA [id number] [place] [address] [place] Oxyhemoglobin (BldA) [Mass fraction] 95 % Normal 95-98 [facility] Comment on above: Order Comment: Speci men Type: ARTERIAL BLOOD SPECIMENOrdering Facility: [facility] Address: [address] [place] [address] Performed By: #### A LLBG ####[facility] LABIA [id number] [place] [address] [place] pH (Bld) 7.43 [pH] Normal 7.35-7.45 [facility] Comment on above: Order Comment: Speci men Type: ARTERIAL BLOOD SPECIMENOrdering Facility: [facility] Address: [address] [place] [address] Performed By: #### A LLBG ####[facility] LABIA [id number] [place] [address] [place] Potassium [Moles/Vol] 4.0 mmol/L Normal 3.5-5.0 [facility] Comment on above: Order Comment: Speci men Type: ARTERIAL BLOOD SPECIMENOrdering Facility: [facility] Address: [address] [place] [address] Performed By: #### A LLBG ####[facility] LABIA [id number] [place] [address] [place] Sodium [Moles/Vol] 138 mmol/L Normal 136-144 [facility] Comment on above: Order Comment: Speci men Type: ARTERIAL BLOOD SPECIMENOrdering Facility: [facility] Address: [address], [place] [address] Performed By: #### A LLBG ####[facility] LABCLIA [id number] [place] [address] [place] Base excess Calc (Bld) [Moles/Vol] 2 mmol/L Normal 0-2 [facility] Comment on above: Order Comment: Speci men Type: ARTERIAL BLOOD SPECIMENOrdering Facility: [facility] Address: [address] [place] [address] Performed By: #### A LLBG ####[facility] LABIA [id number] [place] [address] [place] Body temperature 98.6 [degF] Normal [facility] Comment on above: Order Comment: Speci men Type: ARTERIAL BLOOD SPECIMENOrdering Facility: [facility] Address: [address] [place] [address] Performed By: #### A LLBG ####[facility] LABIA [id number] [place] [address] [place] Calcium.ionized (Bld) [Mass/Vol] 1.31 mmol/L High 1.08-1.30 [facility] Comment on above: Order Comment: Speci men Type: ARTERIAL BLOOD SPECIMENOrdering Facility: [facility] Address: [address] [place] [address] Performed By: #### A LLBG ####[facility] LABIA [id number] [place] [address] [place] Calcium.ionized adjusted to pH 7.4 (BldA) [Moles/Vol] 1.32 mmol/L High 1.08-1.30 [facility] Comment on above: Order Comment: Speci men Type: ARTERIAL BLOOD SPECIMENOrdering Facility: [facility] Address: [address] [place] [address] Performed By: #### A LLBG ####[facility] LABIA [id number] [place] [address] [place] Carboxyhemoglobin (BldA) [Mass fraction] 1.8 % Normal 0.0-2.0 [facility] Comment on above: Order Comment: Speci men Type: ARTERIAL BLOOD SPECIMENOrdering Facility: [facility] Address: [address] [place] [address] Result Comment: Carb oxyhemoglobin Reference Range for Smokers: 2.0-8.0% Performed By: #### A LLBG ####[facility] LABCLIA [id number] [place] [address] [place] CO2 (Bld) [Partial pressure] 42 mm Hg Normal 36-46 [facility] Comment on above: Order Comment: Speci men Type: ARTERIAL BLOOD SPECIMENOrdering Facility: [facility] Address: [address] [place] [address] Performed By: #### A LLBG ####[facility] LABCLIA [id number] [place] [address] [place] Glucose [Mass/Vol] 143 mg/dL High 60-105 [facility] Comment on above: Order Comment: Speci men Type: ARTERIAL BLOOD SPECIMENOrdering Facility: [facility] Address: [address] [place] [address] Performed By: #### A LLBG ####[facility] LABCLIA [id number] [place] [address] [place] HCO3 (Bld) [Moles/Vol] 26 mmol/L Normal 22-26 [facility] Comment on above: Order Comment: Speci men Type: ARTERIAL BLOOD SPECIMENOrdering Facility: [facility] Address: [address] [place] [address] Performed By: #### A LLBG ####[facility] LABCLIA [id number] [place] [address] [place] Hematocrit (Bld) [Volume fraction] 44.5 % Normal 36.0-46.0 [facility] Comment on above: Order Comment: Speci men Type: ARTERIAL BLOOD SPECIMENOrdering Facility: [facility] Address: [address] [place] [address] Performed By: #### A LLBG ####[facility] LABCLIA [id number] [place] [address] [place] Hemoglobin (Bld) [Mass/Vol] 14.5 g/dL Normal 11.5-15.5 [facility] Comment on above: Order Comment: Speci men Type: ARTERIAL BLOOD SPECIMENOrdering Facility: [facility] Address: [address] [place] [address] Performed By: #### A LLBG ####[facility] LABCLIA [id number] [place] [address] [place] Lactate [Moles/Vol] 1.9 mmol/L Normal 0.5-2.2 [facility] Comment on above: Order Comment: Speci men Type: ARTERIAL BLOOD SPECIMENOrdering Facility: [facility] Address: [address] [place] [address] Performed By: #### A LLBG ####[facility] LABCLIA [id number] [address] [place] Methemoglobin (Bld) [Mass fraction] 1.0 % Normal 0.0-1.5 [facility] Comment on above: Order Comment: Speci men Type: ARTERIAL BLOOD SPECIMENOrdering Facility: [facility] Address: [address] [place] [address] Performed By: #### A LLBG ####[facility] LABCLIA [id number] [place] [address] [place] O2 THERAPY Positive Normal [facility] Comment on above: Order Comment: Speci men Type: ARTERIAL BLOOD SPECIMENOrdering Facility: [facility] Address: [address] [place] [address] Performed By: #### A LLBG ####[facility] LABCLIA [id number] [id number] [address] [place] Oxygen (Bld) [Partial pressure] 124 mm Hg High 85-95 [facility] Comment on above: Order Comment: Speci men Type: ARTERIAL BLOOD SPECIMENOrdering Facility: [facility] Address: [address] [place] [address] Performed By: #### A LLBG ####[facility] LABCLIA [id number] [place] [address] [place] Oxyhemoglobin (BldA) [Mass fraction] 96 % Normal 95-98 [facility] Comment on above: Order Comment: Speci men Type: ARTERIAL BLOOD SPECIMENOrdering Facility: [facility] Address: [address] [place] [address] Performed By: #### A LLBG ####[facility] LABCLIA [id number] [place] [address] [place] pH (Bld) 7.41 [pH] Normal 7.35-7.45 [facility] Comment on above: Order Comment: Speci men Type: ARTERIAL BLOOD SPECIMENOrdering Facility: [facility] Address: [address] [place] [address] Performed By: #### A LLBG ####[facility] LABCLIA [id number] [place] [address] [place] Potassium [Moles/Vol] 4.4 mmol/L Normal 3.5-5.0 [facility] Comment on above: Order Comment: Speci men Type: ARTERIAL BLOOD SPECIMENOrdering Facility: [facility] Address: [address] [place] [address] Performed By: #### A LLBG ####[facility] LABIA [id number] [place] [address] [place] [place] Sodium [Moles/Vol] 140 mmol/L Normal 136-144 [facility] Comment on above: Order Comment: Speci men Type: ARTERIAL BLOOD SPECIMENOrdering Facility: [facility] Address: [address] [place] [address] Performed By: #### A LLBG ####[facility] LABCLIA [id number] [place] [address] [place] Base excess Calc (Bld) [Moles/Vol] 2 mmol/L Normal 0-2 [facility] Comment on above: Order Comment: Speci men Type: ARTERIAL BLOOD SPECIMENOrdering Facility: [facility] Address: [address] [place] [address] Performed By: #### A LLBG ####[facility] LABCLIA [id number] [place] [address] [place] Body temperature 98.6 [degF] Normal [facility] Comment on above: Order Comment: Speci men Type: ARTERIAL BLOOD SPECIMENOrdering Facility: [facility] Address: [address] [place] [address] Performed By: #### A LLBG ####[facility] LABIA [id number] [place] [address] [place] Calcium.ionized (Bld) [Mass/Vol] 1.31 mmol/L High 1.08-1.30 [facility] Comment on above: Order Comment: Speci men Type: ARTERIAL BLOOD SPECIMENOrdering Facility: [facility] Address: [address] [place] [address] Performed By: #### A LLBG ####[facility] LABIA [id number] [place] [address] [place] Calcium.ionized adjusted to pH 7.4 (BldA) [Moles/Vol] 1.30 mmol/L Normal 1.08-1.30 [facility] Comment on above: Order Comment: Speci men Type: ARTERIAL BLOOD SPECIMENOrdering Facility: [facility] Address: [address] [place] [address] Performed By: #### A LLBG ####[facility] LABCLIA [id number] [id number] [address] [place] Carboxyhemoglobin (BldA) [Mass fraction] 2.3 % High 0.0-2.0 [facility] Comment on above: Order Comment: Speci men Type: ARTERIAL BLOOD SPECIMENOrdering Facility: [facility] Address: [address] [place] [address] Result Comment: Carb oxyhemoglobin Reference Range for Smokers: 2.0-8.0% Performed By: #### A LLBG ####[facility] LABCLIA [id number] [place] [address] [place] CO2 (Bld) [Partial pressure] 47 mm Hg High 36-46 [facility] Comment on above: Order Comment: Speci men Type: ARTERIAL BLOOD SPECIMENOrdering Facility: [facility] Address: [address] [place] [address] Performed By: #### A LLBG ####[facility] LABCLIA [id number] [place] [address] [place] Glucose [Mass/Vol] 179 mg/dL High 60-105 [facility] Comment on above: Order Comment: Speci men Type: ARTERIAL BLOOD SPECIMENOrdering Facility: [facility] Address: [address] [place] [address] Performed By: #### A LLBG ####[facility] LABCLIA [id number] [place] [address] [place] HCO3 (Bld) [Moles/Vol] 27 mmol/L High 22-26 [facility] Comment on above: Order Comment: Speci men Type: ARTERIAL BLOOD SPECIMENOrdering Facility: [facility] Address: [address] [place] [address] Performed By: #### A LLBG ####[facility] LABCLIA [id number] [place] [address] [place] Hematocrit (Bld) [Volume fraction] 43.6 % Normal 36.0-46.0 [facility] Comment on above: Order Comment: Speci men Type: ARTERIAL BLOOD SPECIMENOrdering Facility: [facility] Address: [address] [place] [address] Performed By: #### A LLBG ####[facility] LABCLIA [id number] [place] [address] [place] Hemoglobin (Bld) [Mass/Vol] 14.2 g/dL Normal 11.5-15.5 [facility] Comment on above: Order Comment: Speci men Type: ARTERIAL BLOOD SPECIMENOrdering Facility: [facility] Address: [address] [place] [address] Performed By: #### A LLBG ####[facility] LABCLIA [id number] [place] [address] [place] Lactate [Moles/Vol] 2.7 mmol/L High 0.5-2.2 [facility] Comment on above: Order Comment: Speci men Type: ARTERIAL BLOOD SPECIMENOrdering Facility: [facility] Address: [address] [place] [address] Performed By: #### A LLBG ####[facility] LABCLIA [id number] [place] [address] [place] Methemoglobin (Bld) [Mass fraction] 0.7 % Normal 0.0-1.5 [facility] Comment on above: Order Comment: Speci men Type: ARTERIAL BLOOD SPECIMENOrdering Facility: [facility] Address: [address] [place] [address] Performed By: #### A LLBG ####[facility] LABCLIA [id number] [place] [address] [place] O2 THERAPY Positive Normal [facility] Comment on above: Order Comment: Speci men Type: ARTERIAL BLOOD SPECIMENOrdering Facility: [facility] Address: [address] [place] [address] Performed By: #### A LLBG ####[facility] LABCLIA [id number] [place] [address] [place] Oxygen (Bld) [Partial pressure] 136 mm Hg High 85-95 [facility] Comment on above: Order Comment: Speci men Type: ARTERIAL BLOOD SPECIMENOrdering Facility: [facility] Address: [address] [place] [address] Performed By: #### A LLBG ####[facility] LABCLIA [id number] [place] [address] [place] Oxyhemoglobin (BldA) [Mass fraction] 96 % Normal 95-98 [facility] Comment on above: Order Comment: Speci men Type: ARTERIAL BLOOD SPECIMENOrdering Facility: [facility] Address: [address] [place] [address] Performed By: #### A LLBG ####[facility] LABIA [id number] [place] [address] [place] pH (Bld) 7.38 [pH] Normal 7.35-7.45 [facility] Comment on above: Order Comment: Speci men Type: ARTERIAL BLOOD SPECIMENOrdering Facility: [facility] Address: [address] [place] [address] Performed By: #### A LLBG ####[facility] LABCLIA [id number] [place] [address] [place] Potassium [Moles/Vol] 4.0 mmol/L Normal 3.5-5.0 [facility] Comment on above: Order Comment: Speci men Type: ARTERIAL BLOOD SPECIMENOrdering Facility: [facility] Address: [address] [place], [place] [id number] Performed By: #### A LLBG ####[facility] LABCLIA [id number] [place] [address] [place] Sodium [Moles/Vol] 141 mmol/L Normal 136-144 [facility] Comment on above: Order Comment: Speci men Type: ARTERIAL BLOOD SPECIMENOrdering Facility: [facility] Address: [address] [place] [address] Performed By: #### A LLBG ####[facility] LABCLIA [id number] [place] [address] [place] Base excess Calc (Bld) [Moles/Vol] 3 mmol/L High 0-2 [facility] Comment on above: Order Comment: Speci men Type: ARTERIAL BLOOD SPECIMENOrdering Facility: [facility] Address: [address] [place] [address] Performed By: #### A LLBG ####[facility] LABCLIA [id number] [place] [address] [place] Body temperature 98.6 [degF] Normal [facility] Comment on above: Order Comment: Speci men Type: ARTERIAL BLOOD SPECIMENOrdering Facility: [facility] Address: [address] [place] [address] Performed By: #### A LLBG ####[facility] LABCLIA [id number] [place] [address] [place] Calcium.ionized (Bld) [Mass/Vol] 1.28 mmol/L Normal 1.08-1.30 [facility] Comment on above: Order Comment: Speci men Type: ARTERIAL BLOOD SPECIMENOrdering Facility: [facility] Address: [address] [place] [address] Performed By: #### A LLBG ####[facility] LABCLIA [id number] [place] [address] [place] Calcium.ionized adjusted to pH 7.4 (BldA) [Moles/Vol] 1.29 mmol/L Normal 1.08-1.30 [facility] Comment on above: Order Comment: Speci men Type: ARTERIAL BLOOD SPECIMENOrdering Facility: [facility] Address: [address] [place] [address] Performed By: #### A LLBG ####[facility] LABCLIA [id number] [place] [address] [place] Carboxyhemoglobin (BldA) [Mass fraction] 2.5 % High 0.0-2.0 [facility] Comment on above: Order Comment: Speci men Type: ARTERIAL BLOOD SPECIMENOrdering Facility: [facility] Address: [address] [place] [address] Result Comment: Carb oxyhemoglobin Reference Range for Smokers: 2.0-8.0% Performed By: #### A LLBG ####[facility] LABCLIA [id number] [place] [address] [place] CO2 (Bld) [Partial pressure] 45 mm Hg Normal 36-46 [facility] Comment on above: Order Comment: Speci men Type: ARTERIAL BLOOD SPECIMENOrdering Facility: [facility] Address: [address] [place] [address] Performed By: #### A LLBG ####[facility] LABCLIA [id number] [place] [address] [place] Glucose [Mass/Vol] 214 mg/dL High 60-105 [facility] Comment on above: Order Comment: Speci men Type: ARTERIAL BLOOD SPECIMENOrdering Facility: [facility] Address: [address] [place] [address] Performed By: #### A LLBG ####[facility] LABCLIA [id number] [place] [address] [place] HCO3 (Bld) [Moles/Vol] 28 mmol/L High 22-26 [facility] Comment on above: Order Comment: Speci men Type: ARTERIAL BLOOD SPECIMENOrdering Facility: [facility] Address: [address] [place] [address] Performed By: #### A LLBG ####[facility] LABCLIA [id number] [place] [address] [place] Hematocrit (Bld) [Volume fraction] 42.1 % Normal 36.0-46.0 [facility] Comment on above: Order Comment: Speci men Type: ARTERIAL BLOOD SPECIMENOrdering Facility: [facility] Address: [address] [place] [address] Performed By: #### A LLBG ####[facility] LABCLIA [id number] [place] [address] [place] Hemoglobin (Bld) [Mass/Vol] 13.7 g/dL Normal 11.5-15.5 [facility] Comment on above: Order Comment: Speci men Type: ARTERIAL BLOOD SPECIMENOrdering Facility: [facility] Address: [address] [place] [address] Performed By: #### A LLBG ####[facility] LABIA [id number] [place] [address] [place] Lactate [Moles/Vol] 2.3 mmol/L High 0.5-2.2 [facility] Comment on above: Order Comment: Speci men Type: ARTERIAL BLOOD SPECIMENOrdering Facility: [facility] Address: [address] [place] [address] Performed By: #### A LLBG ####[facility] LABCLIA [id number] [place] [address] [place] Methemoglobin (Bld) [Mass fraction] 0.9 % Normal 0.0-1.5 [facility] Comment on above: Order Comment: Speci men Type: ARTERIAL BLOOD SPECIMENOrdering Facility: [facility] Address: [address] [place] [address] Performed By: #### A LLBG ####[facility] LABCLIA [id number] [place] [address] [place] O2 THERAPY VENT=Ventilator Normal [facility] Comment on above: Order Comment: Speci men Type: ARTERIAL BLOOD SPECIMENOrdering Facility: [facility] Address: [address] [place], [place] [id number] Performed By: #### A LLBG ####[facility] LABCLIA [id number] [place] [address] [place] Oxygen (Bld) [Partial pressure] 125 mm Hg High 85-95 [facility] Comment on above: Order Comment: Speci men Type: ARTERIAL BLOOD SPECIMENOrdering Facility: [facility] Address: [address] [place] [address] Performed By: #### A LLBG ####[facility] LABCLIA [id number] [place] [address] [place] Oxyhemoglobin (BldA) [Mass fraction] 96 % Normal 95-98 [facility] Comment on above: Order Comment: Speci men Type: ARTERIAL BLOOD SPECIMENOrdering Facility: [facility] Address: [address] [place] [address] Performed By: #### A LLBG ####[facility] LABIA [id number] [place] [address] [place] pH (Bld) 7.41 [pH] Normal 7.35-7.45 [facility] Comment on above: Order Comment: Speci men Type: ARTERIAL BLOOD SPECIMENOrdering Facility: [facility] Address: [address] [place] [address] Performed By: #### A LLBG ####[facility] LABIA [id number] [place] [address] [place] Potassium [Moles/Vol] 3.2 mmol/L Low 3.5-5.0 [facility] Comment on above: Order Comment: Speci men Type: ARTERIAL BLOOD SPECIMENOrdering Facility: [facility] Address: [address] [place] [address] Performed By: #### A LLBG ####[facility] LABIA [id number] [place] [address] [place] Sodium [Moles/Vol] 140 mmol/L Normal 136-144 [facility] Comment on above: Order Comment: Speci men Type: ARTERIAL BLOOD SPECIMENOrdering Facility: [facility] Address: [address] [place] [address] Performed By: #### A LLBG ####[facility] LABCLIA [id number] [place] [address] [place] Base excess Calc (Bld) [Moles/Vol] 4 mmol/L High 0-2 [facility] Comment on above: Order Comment: Speci men Type: ARTERIAL BLOOD SPECIMENOrdering Facility: [facility] Address: [address] [place] [address] Performed By: #### A LLBG ####[facility] LABCLIA [id number] [place] [address] [place] Body temperature 98.6 [degF] Normal [facility] Comment on above: Order Comment: Speci men Type: ARTERIAL BLOOD SPECIMENOrdering Facility: [facility] Address: [address] [place] [address] Performed By: #### A LLBG ####[facility] LABCLIA [id number] [place] [address] [place] Calcium.ionized (Bld) [Mass/Vol] 1.28 mmol/L Normal 1.08-1.30 [facility] Comment on above: Order Comment: Speci men Type: ARTERIAL BLOOD SPECIMENOrdering Facility: [facility] Address: [address] [place] [address] Performed By: #### A LLBG ####[facility] LABCLIA [id number] [place] [address] [place] Calcium.ionized adjusted to pH 7.4 (BldA) [Moles/Vol] 1.30 mmol/L Normal 1.08-1.30 [facility] Comment on above: Order Comment: Speci men Type: ARTERIAL BLOOD SPECIMENOrdering Facility: [facility] Address: [address] [place] [address] Performed By: #### A LLBG ####[facility] LABCLIA [id number] [place] [address] [place] Carboxyhemoglobin (BldA) [Mass fraction] 2.3 % High 0.0-2.0 [facility] Comment on above: Order Comment: Speci men Type: ARTERIAL BLOOD SPECIMENOrdering Facility: [facility] Address: [address] [place] [address] Result Comment: Carb oxyhemoglobin Reference Range for Smokers: 2.0-8.0% Performed By: #### A LLBG ####[facility] LABCLIA [id number] [place] [address] [place] CO2 (Bld) [Partial pressure] 42 mm Hg Normal 36-46 [facility] Comment on above: Order Comment: Speci men Type: ARTERIAL BLOOD SPECIMENOrdering Facility: [facility] Address: [address] [place] [address] Performed By: #### A LLBG ####[facility] LABIA [id number] [place] [address] [place] FIO2 50 % Normal [facility] Comment on above: Order Comment: Speci men Type: ARTERIAL BLOOD SPECIMENOrdering Facility: [facility] Address: [address] [place] [address] Performed By: #### A LLBG ####[facility] LABIA [id number] [place] [address] [place] Glucose [Mass/Vol] 180 mg/dL High 60-105 [facility] Comment on above: Order Comment: Speci men Type: ARTERIAL BLOOD SPECIMENOrdering Facility: [facility] Address: [address] [place] [address] Performed By: #### A LLBG ####[facility] LABIA [id number] [place] [address] [place] HCO3 (Bld) [Moles/Vol] 28 mmol/L High 22-26 [facility] Comment on above: Order Comment: Speci men Type: ARTERIAL BLOOD SPECIMENOrdering Facility: [facility] Address: [address] [place] [address] Performed By: #### A LLBG ####[facility] LABCLIA [id number] [place] [address] [place] Hematocrit (Bld) [Volume fraction] 42.2 % Normal 36.0-46.0 [facility] Comment on above: Order Comment: Speci men Type: ARTERIAL BLOOD SPECIMENOrdering Facility: [facility] Address: [address] [place] [address] Performed By: #### A LLBG ####[facility] LABCLIA [id number] [place] [address] [place] Hemoglobin (Bld) [Mass/Vol] 13.7 g/dL Normal 11.5-15.5 [facility] Comment on above: Order Comment: Speci men Type: ARTERIAL BLOOD SPECIMENOrdering Facility: [facility] Address: [address] [place] [address] Performed By: #### A LLBG ####[facility] LABCLIA [id number] [place] [address] [place] Lactate [Moles/Vol] 1.6 mmol/L Normal 0.5-2.2 [facility] Comment on above: Order Comment: Speci men Type: ARTERIAL BLOOD SPECIMENOrdering Facility: [facility] Address: [address] [place] [address] Performed By: #### A LLBG ####[facility] LABCLIA [id number] [place] [address] [place] Methemoglobin (Bld) [Mass fraction] 1.7 % High 0.0-1.5 [facility] Comment on above: Order Comment: Speci men Type: ARTERIAL BLOOD SPECIMENOrdering Facility: [facility] Address: [address] [place] [address] Performed By: #### A LLBG ####[facility] LABCLIA [id number] [place] [id number] [place] O2 THERAPY VENT=Ventilator Normal [facility] Comment on above: Order Comment: Speci men Type: ARTERIAL BLOOD SPECIMENOrdering Facility: [facility] Address: [address] [place], [place] [id number] Performed By: #### A LLBG ####[facility] LABCLIA [id number] [place] [id number] [place] Oxygen (Bld) [Partial pressure] 119 mm Hg High 85-95 [facility] Comment on above: Order Comment: Speci men Type: ARTERIAL BLOOD SPECIMENOrdering Facility: [facility] Address: [address] [place] [address] Performed By: #### A LLBG ####[facility] LABCLIA [id number] [place] [address] [place] Oxyhemoglobin (BldA) [Mass fraction] 95 % Normal 95-98 [facility] Comment on above: Order Comment: Speci men Type: ARTERIAL BLOOD SPECIMENOrdering Facility: [facility] Address: [address] [place] [address] Performed By: #### A LLBG ####[facility] LABCLIA [id number] [place] [id number] [place] pH (Bld) 7.44 [pH] Normal 7.35-7.45 [facility] Comment on above: Order Comment: Speci men Type: ARTERIAL BLOOD SPECIMENOrdering Facility: [facility] Address: [address] [place] [id number] Performed By: #### A LLBG ####[facility] LABCLIA [id number] [place] [id number] [place] PO2 / FIO2 RATIO 238 mmHg Low >300 [facility] Comment on above: Order Comment: Speci men Type: ARTERIAL BLOOD SPECIMENOrdering Facility: [facility] Address: [address] [place] [address] Performed By: #### A LLBG ####[facility] LABCLIA [id number] [place] [address] [place] Potassium [Moles/Vol] 3.3 mmol/L Low 3.5-5.0 [facility] Comment on above: Order Comment: Speci men Type: ARTERIAL BLOOD SPECIMENOrdering Facility: [facility] Address: [address] [place] [address] Performed By: #### A LLBG ####[facility] LABCLIA [id number] [place] [address] [place] Sodium [Moles/Vol] 141 mmol/L Normal 136-144 [facility] Comment on above: Order Comment: Speci men Type: ARTERIAL BLOOD SPECIMENOrdering Facility: [facility] Address: [address] [place] [address] Performed By: #### A LLBG ####[facility] LABIA [id number] [place] [address] [place] ARTERIAL BLOOD GASES WITH IO NIZED MAGNESIUMon 05-27-2024 Base excess Calc (Bld) [Moles/Vol] 3 mmol/L High 0-2 [facility] Comment on above: Order Comment: Speci men Type: ARTERIAL BLOOD SPECIMENOrdering Facility: [facility] Address: [address] [place] [address] Performed By: #### A LLMG ####[facility] LABIA [id number] [place] [address] [place] Calcium.ionized (Bld) [Mass/Vol] 1.23 mmol/L Normal 1.08-1.30 [facility] Comment on above: Order Comment: Speci men Type: ARTERIAL BLOOD SPECIMENOrdering Facility: [facility] Address: [address] [place] [address] Performed By: #### A LLMG ####[facility] LABCLIA [id number] [place] [address] [place] Calcium.ionized adjusted to pH 7.4 (BldA) [Moles/Vol] 1.24 mmol/L Normal 1.08-1.30 [facility] Comment on above: Order Comment: Speci men Type: ARTERIAL BLOOD SPECIMENOrdering Facility: [facility] Address: [address] [place] [address] Performed By: #### A LLMG ####[facility] LABIA [id number] [place] [address] [place] Carboxyhemoglobin (BldA) [Mass fraction] 2.2 % High 0.0-2.0 [facility] Comment on above: Order Comment: Speci men Type: ARTERIAL BLOOD SPECIMENOrdering Facility: [facility] Address: [address] [place] [address] Result Comment: Carb oxyhemoglobin Reference Range for Smokers: 2.0-8.0% Performed By: #### A LLMG ####[facility] LABCLIA [id number] [place] [address] [place] CO2 (Bld) [Partial pressure] 43 mm Hg Normal 36-46 [facility] Comment on above: Order Comment: Speci men Type: ARTERIAL BLOOD SPECIMENOrdering Facility: [facility] Address: [address] [place] [address] Performed By: #### A LLMG ####[facility] LABCLIA [id number] [place] [address] [place] CO2 adjusted to patient's actual temperature (Bld) [Partial pressure] 43 mmHg Normal 36-46 [facility] Comment on above: Order Comment: Speci men Type: ARTERIAL BLOOD SPECIMENOrdering Facility: [facility] Address: [address] [place] [address] Performed By: #### A LLMG ####[facility] LABCLIA [id number] [place] [address] [place] Glucose [Mass/Vol] 158 mg/dL High 60-105 [facility] Comment on above: Order Comment: Speci men Type: ARTERIAL BLOOD SPECIMENOrdering Facility: [facility] Address: [address] [place] [address] Performed By: #### A LLMG ####[facility] LABCLIA [id number] [place] [address] [place] HCO3 (Bld) [Moles/Vol] 27 mmol/L High 22-26 [facility] Comment on above: Order Comment: Speci men Type: ARTERIAL BLOOD SPECIMENOrdering Facility: [facility] Address: [address] [place] [address] Performed By: #### A LLMG ####[facility] LABIA [id number] [place] [address] [place] Hematocrit (Bld) [Volume fraction] 38.4 % Normal 36.0-46.0 [facility] Comment on above: Order Comment: Speci men Type: ARTERIAL BLOOD SPECIMENOrdering Facility: [facility] Address: [address] [place] [address] Performed By: #### A LLMG ####[facility] LABCLIA [id number] [place] [address] [place] Hemoglobin (Bld) [Mass/Vol] 12.5 g/dL Normal 11.5-15.5 [facility] Comment on above: Order Comment: Speci men Type: ARTERIAL BLOOD SPECIMENOrdering Facility: [facility] Address: [address] [place] [address] Performed By: #### A LLMG ####[facility] LABIA [id number] [place] [address] [place] Lactate [Moles/Vol] 2.1 mmol/L Normal 0.5-2.2 [facility] Comment on above: Order Comment: Speci men Type: ARTERIAL BLOOD SPECIMENOrdering Facility: [facility] Address: [address] [place] [address] Performed By: #### A LLMG ####[facility] LABCLIA [id number] [place] [address] [place] Magnesium [Moles/Vol] 0.83 mmol/L High 0.45-0.60 [facility] Comment on above: Order Comment: Speci men Type: ARTERIAL BLOOD SPECIMENOrdering Facility: [facility] Address: [address] [place] [address] Performed By: #### A LLMG ####[facility] LABIA [id number] [place] [address] [place] Methemoglobin (Bld) [Mass fraction] 0.7 % Normal 0.0-1.5 [facility] Comment on above: Order Comment: Speci men Type: ARTERIAL BLOOD SPECIMENOrdering Facility: [facility] Address: [address] [place] [address] Performed By: #### A LLMG ####[facility] LABCLIA [id number] [place] [address] [place] Oxygen (Bld) [Partial pressure] 322 mm Hg High 85-95 [facility] Comment on above: Order Comment: Speci men Type: ARTERIAL BLOOD SPECIMENOrdering Facility: [facility] Address: [address] [place], [place] [id number] Performed By: #### A LLMG ####[facility] LABCLIA [id number] [place] [address] [place] Oxygen adjusted to patient's actual temperature (Bld) [Partial pressure] 322 mmHg High 85-95 [facility] Comment on above: Order Comment: Speci men Type: ARTERIAL BLOOD SPECIMENOrdering Facility: [facility] Address: [address] [place], [place] [id number] Performed By: #### A LLMG ####[facility] LABCLIA [id number] [place] [id number] [place] Oxyhemoglobin (BldA) [Mass fraction] 97 % Normal 95-98 [facility] Comment on above: Order Comment: Speci men Type: ARTERIAL BLOOD SPECIMENOrdering Facility: [facility] Address: [address] [place] [address] Performed By: #### A LLMG ####[facility] LABCLIA [id number] [place] [address] [place] pH (Bld) 7.41 [pH] Normal 7.35-7.45 [facility] Comment on above: Order Comment: Speci men Type: ARTERIAL BLOOD SPECIMENOrdering Facility: [facility] Address: [address] [place] [address] Performed By: #### A LLMG ####[facility] LABCLIA [id number] [place] [address] [place] pH adjusted to patient's actual temperature (Bld) 7.41 Normal 7.35-7.45 [facility] Comment on above: Order Comment: Speci men Type: ARTERIAL BLOOD SPECIMENOrdering Facility: [facility] Address: [address] [place] [address] Performed By: #### A LLMG ####[facility] LABCLIA [id number] [place] [address] [place] Potassium [Moles/Vol] 3.4 mmol/L Low 3.5-5.0 [facility] Comment on above: Order Comment: Speci men Type: ARTERIAL BLOOD SPECIMENOrdering Facility: [facility] Address: [address] [place] [address] Performed By: #### A LLMG ####[facility] LABIA [id number] [place] [address] [place] Sodium [Moles/Vol] 141 mmol/L Normal 136-144 [facility] Comment on above: Order Comment: Speci men Type: ARTERIAL BLOOD SPECIMENOrdering Facility: [facility] Address: [address] [place] [address] Performed By: #### A LLMG ####[facility] LABIA [id number] [place] [address] [place] Base excess Calc (Bld) [Moles/Vol] 1 mmol/L Normal 0-2 [facility] Comment on above: Order Comment: Speci men Type: ARTERIAL BLOOD SPECIMENOrdering Facility: [facility] Address: [address] [place] [address] Performed By: #### A LLMG ####[facility] [id number] [place] [address] [place] Calcium.ionized (Bld) [Mass/Vol] 1.17 mmol/L Normal 1.08-1.30 [facility] Comment on above: Order Comment: Speci men Type: ARTERIAL BLOOD SPECIMENOrdering Facility: [facility] Address: [address] [place] [address] Performed By: #### A LLMG ####[facility] [id number] [place] [address] [place] Calcium.ionized adjusted to pH 7.4 (BldA) [Moles/Vol] 1.16 mmol/L Normal 1.08-1.30 [facility] Comment on above: Order Comment: Speci men Type: ARTERIAL BLOOD SPECIMENOrdering Facility: [facility] Address: [address] [place] [address] Performed By: #### A LLMG ####[facility] [id number] [place] [address] [place] Carboxyhemoglobin (BldA) [Mass fraction] 2.3 % High 0.0-2.0 [facility] Comment on above: Order Comment: Speci men Type: ARTERIAL BLOOD SPECIMENOrdering Facility: [facility] Address: [address] [place] [address] Result Comment: Carb oxyhemoglobin Reference Range for Smokers: 2.0-8.0% Performed By: #### A LLMG ####[facility] LABCLIA [id number] [place] [address] [place] CO2 (Bld) [Partial pressure] 43 mm Hg Normal 36-46 [facility] Comment on above: Order Comment: Speci men Type: ARTERIAL BLOOD SPECIMENOrdering Facility: [facility] Address: [address] [place] [address] Performed By: #### A LLMG ####[facility] LABCLIA [id number] [place] [address] [place] CO2 adjusted to patient's actual temperature (Bld) [Partial pressure] 43 mmHg Normal 36-46 [facility] Comment on above: Order Comment: Speci men Type: ARTERIAL BLOOD SPECIMENOrdering Facility: [facility] Address: [address] [place] [address] Performed By: #### A LLMG ####[facility] LABCLIA [id number] [place] [address] [place] Glucose [Mass/Vol] 142 mg/dL High 60-105 [facility] Comment on above: Order Comment: Speci men Type: ARTERIAL BLOOD SPECIMENOrdering Facility: [facility] Address: [address] [place] [address] Performed By: #### A LLMG ####[facility] LABCLIA [id number] [place] [address] [place] HCO3 (Bld) [Moles/Vol] 25 mmol/L Normal 22-26 [facility] Comment on above: Order Comment: Speci men Type: ARTERIAL BLOOD SPECIMENOrdering Facility: [facility] Address: [address] [place] [address] Performed By: #### A LLMG ####[facility] LABCLIA [id number] [place] [id number] [place] Hematocrit (Bld) [Volume fraction] 34.7 % Low 36.0-46.0 [facility] Comment on above: Order Comment: Speci men Type: ARTERIAL BLOOD SPECIMENOrdering Facility: [facility] Address: [address] [place] [address] Performed By: #### A LLMG ####[facility] LABIA [id number] [place] [address] [place] Hemoglobin (Bld) [Mass/Vol] 11.3 g/dL Low 11.5-15.5 [facility] Comment on above: Order Comment: Speci men Type: ARTERIAL BLOOD SPECIMENOrdering Facility: [facility] Address: [address] [place] [address] Performed By: #### A LLMG ####[facility] [id number] [place] [address] [place] Lactate [Moles/Vol] 3.1 mmol/L High 0.5-2.2 [facility] Comment on above: Order Comment: Speci men Type: ARTERIAL BLOOD SPECIMENOrdering Facility: [facility] Address: [address] [place] [address] Performed By: #### A LLMG ####[facility] [id number] [place] [address] [place] Magnesium [Moles/Vol] 0.38 mmol/L Low 0.45-0.60 [facility] Comment on above: Order Comment: Speci men Type: ARTERIAL BLOOD SPECIMENOrdering Facility: [facility] Address: [address] [place] [address] Performed By: #### A LLMG ####[facility] LABIA [id number] [place] [address] [place] Methemoglobin (Bld) [Mass fraction] 1.7 % High 0.0-1.5 [facility] Comment on above: Order Comment: Speci men Type: ARTERIAL BLOOD SPECIMENOrdering Facility: [facility] Address: [address], [place] [address] Performed By: #### A LLMG ####[facility] LABCLIA [id number] [address] [address] [place] Oxygen (Bld) [Partial pressure] 257 mm Hg High 85-95 [facility] Comment on above: Order Comment: Speci men Type: ARTERIAL BLOOD SPECIMENOrdering Facility: [facility] Address: [address] [place] [address] Performed By: #### A LLMG ####[facility] LABCLIA [id number] [address] [address] [place] Oxygen adjusted to patient's actual temperature (Bld) [Partial pressure] 257 mmHg High 85-95 [facility] Comment on above: Order Comment: Speci men Type: ARTERIAL BLOOD SPECIMENOrdering Facility: [facility] Address: [address] [place] [address] Performed By: #### A LLMG ####[facility] LABIA [id number] [place] [address] [place] Oxyhemoglobin (BldA) [Mass fraction] 96 % Normal 95-98 [facility] Comment on above: Order Comment: Speci men Type: ARTERIAL BLOOD SPECIMENOrdering Facility: [facility] Address: [address] [place], [place] [id number] Performed By: #### A LLMG ####[facility] LABIA [id number] [place] [address] [place] pH (Bld) 7.39 [pH] Normal 7.35-7.45 [facility] Comment on above: Order Comment: Speci men Type: ARTERIAL BLOOD SPECIMENOrdering Facility: [facility] Address: [address] [place], [place] [address] Performed By: #### A LLMG ####[facility] LABCLIA [id number] [place] [id number] [place] pH adjusted to patient's actual temperature (Bld) 7.39 Normal 7.35-7.45 [facility] Comment on above: Order Comment: Speci men Type: ARTERIAL BLOOD SPECIMENOrdering Facility: [facility] Address: [address] [place] [address] Performed By: #### A LLMG ####[facility] LABIA [id number] [place] [address] [place] Potassium [Moles/Vol] 3.5 mmol/L Normal 3.5-5.0 [facility] Comment on above: Order Comment: Speci men Type: ARTERIAL BLOOD SPECIMENOrdering Facility: [facility] Address: [address] [place] [address] Performed By: #### A LLMG ####[facility] LABIA [id number] [place] [address] [place] Sodium [Moles/Vol] 143 mmol/L Normal 136-144 [facility] Comment on above: Order Comment: Speci men Type: ARTERIAL BLOOD SPECIMENOrdering Facility: [facility] Address: [address] [place] [address] Performed By: #### A LLMG ####[facility] LABIA [id number] [place] [address] [place] Base deficit (BldA) [Moles/Vol] -1 mmol/L Normal -2-0 [facility] Comment on above: Order Comment: Speci men Type: ARTERIAL BLOOD SPECIMENOrdering Facility: [facility] Address: [address] [place] [address] Performed By: #### A LLMG ####[facility] LABIA [id number] [place] [address] [place] Calcium.ionized (Bld) [Mass/Vol] 1.06 mmol/L Low 1.08-1.30 [facility] Comment on above: Order Comment: Speci men Type: ARTERIAL BLOOD SPECIMENOrdering Facility: [facility] Address: [address] [place] [address] Performed By: #### A LLMG ####[facility] LABCLIA [id number] [place] [address] [place] Calcium.ionized adjusted to pH 7.4 (BldA) [Moles/Vol] 1.03 mmol/L Low 1.08-1.30 [facility] Comment on above: Order Comment: Speci men Type: ARTERIAL BLOOD SPECIMENOrdering Facility: [facility] Address: [address] [place] [address] Performed By: #### A LLMG ####[facility] LABIA [id number] [place] [address] [place] Carboxyhemoglobin (BldA) [Mass fraction] 1.8 % Normal 0.0-2.0 [facility] Comment on above: Order Comment: Speci men Type: ARTERIAL BLOOD SPECIMENOrdering Facility: [facility] Address: [address] [place] [address] Result Comment: Carb oxyhemoglobin Reference Range for Smokers: 2.0-8.0% Performed By: #### A LLMG ####[facility] LABIA [id number] [place] [address] [place] CO2 (Bld) [Partial pressure] 44 mm Hg Normal 36-46 [facility] Comment on above: Order Comment: Speci men Type: ARTERIAL BLOOD SPECIMENOrdering Facility: [facility] Address: [address] [place] [address] Performed By: #### A LLMG ####[facility] LABCLIA [id number] [place] [address] [place] CO2 adjusted to patient's actual temperature (Bld) [Partial pressure] 44 mmHg Normal 36-46 [facility] Comment on above: Order Comment: Speci men Type: ARTERIAL BLOOD SPECIMENOrdering Facility: [facility] Address: [address] [place] [address] Performed By: #### A LLMG ####[facility] LABCLIA [id number] [place] [address] [place] Glucose [Mass/Vol] 147 mg/dL High 60-105 [facility] Comment on above: Order Comment: Speci men Type: ARTERIAL BLOOD SPECIMENOrdering Facility: [facility] Address: [address] [place] [address] Performed By: #### A LLMG ####[facility] LABCLIA [id number] [place] [address] [place] HCO3 (Bld) [Moles/Vol] 24 mmol/L Normal 22-26 [facility] Comment on above: Order Comment: Speci men Type: ARTERIAL BLOOD SPECIMENOrdering Facility: [facility] Address: [address] [place] [address] Performed By: #### A LLMG ####[facility] LABCLIA [id number] [place] [address] [place] Hematocrit (Bld) [Volume fraction] 35.0 % Low 36.0-46.0 [facility] Comment on above: Order Comment: Speci men Type: ARTERIAL BLOOD SPECIMENOrdering Facility: [facility] Address: [address] [place] [address] Performed By: #### A LLMG ####[facility] LABCLIA [id number] [place] [address] [place] Hemoglobin (Bld) [Mass/Vol] 11.3 g/dL Low 11.5-15.5 [facility] Comment on above: Order Comment: Speci men Type: ARTERIAL BLOOD SPECIMENOrdering Facility: [facility] Address: [address] [place] [address] Performed By: #### A LLMG ####[facility] LABCLIA [id number] [place] [address] [place] Lactate [Moles/Vol] 3.0 mmol/L High 0.5-2.2 [facility] Comment on above: Order Comment: Speci men Type: ARTERIAL BLOOD SPECIMENOrdering Facility: [facility] Address: [address] [place] [id number] Performed By: #### A LLMG ####[facility] LABCLIA [id number] [address] [address] [place] Magnesium [Moles/Vol] 0.45 mmol/L Normal 0.45-0.60 [facility] Comment on above: Order Comment: Speci men Type: ARTERIAL BLOOD SPECIMENOrdering Facility: [facility] Address: [address] [place] [id number] Performed By: #### A LLMG ####[facility] LABCLIA [id number] [place] [address] [place] Methemoglobin (Bld) [Mass fraction] 0.8 % Normal 0.0-1.5 [facility] Comment on above: Order Comment: Speci men Type: ARTERIAL BLOOD SPECIMENOrdering Facility: [facility] Address: [address] [place], [place] [id number] Performed By: #### A LLMG ####[facility] LABCLIA [id number] [place] [address] [place] Oxygen (Bld) [Partial pressure] 356 mm Hg High 85-95 [facility] Comment on above: Order Comment: Speci men Type: ARTERIAL BLOOD SPECIMENOrdering Facility: [facility] Address: [address] [id number] Performed By: #### A LLMG ####[facility] LABCLIA [id number] [address] [address] [place] Oxygen adjusted to patient's actual temperature (Bld) [Partial pressure] 356 mmHg High 85-95 [facility] Comment on above: Order Comment: Speci men Type: ARTERIAL BLOOD SPECIMENOrdering Facility: [facility] Address: [address] [id number] Performed By: #### A LLMG ####[facility] LABCLIA [id number] [place] [address] [place] Oxyhemoglobin (BldA) [Mass fraction] 97 % Normal 95-98 [facility] Comment on above: Order Comment: Speci men Type: ARTERIAL BLOOD SPECIMENOrdering Facility: [facility] Address: [address] [place] [address] Performed By: #### A LLMG ####[facility] LABCLIA [id number] [place] [address] [place] pH (Bld) 7.35 [pH] Normal 7.35-7.45 [facility] Comment on above: Order Comment: Speci men Type: ARTERIAL BLOOD SPECIMENOrdering Facility: [facility] Address: [address] [place] [address] Performed By: #### A LLMG ####[facility] LABCLIA [id number] [place] [address] [place] pH adjusted to patient's actual temperature (Bld) 7.35 Normal 7.35-7.45 [facility] Comment on above: Order Comment: Speci men Type: ARTERIAL BLOOD SPECIMENOrdering Facility: [facility] Address: [address] [place] [address] Performed By: #### A LLMG ####[facility] LABCLIA [id number] [place] [address] [place] Potassium [Moles/Vol] 3.4 mmol/L Low 3.5-5.0 [facility] Comment on above: Order Comment: Speci men Type: ARTERIAL BLOOD SPECIMENOrdering Facility: [facility] Address: [address] [place] [address] Performed By: #### A LLMG ####[facility] LABCLIA [id number] [place] [address] [place] Sodium [Moles/Vol] 142 mmol/L Normal 136-144 [facility] Comment on above: Order Comment: Speci men Type: ARTERIAL BLOOD SPECIMENOrdering Facility: [facility] Address: [address] [place] [address] Performed By: #### A LLMG ####[facility] [id number] [place] [address] [place] Base deficit (BldA) [Moles/Vol] -2 mmol/L Normal -2-0 [facility] Comment on above: Order Comment: Speci men Type: ARTERIAL BLOOD SPECIMENOrdering Facility: [facility] Address: [address] [place] [address] Performed By: #### A LLMG ####[facility] [id number] [place] [address] [place] Calcium.ionized (Bld) [Mass/Vol] 1.26 mmol/L Normal 1.08-1.30 [facility] Comment on above: Order Comment: Speci men Type: ARTERIAL BLOOD SPECIMENOrdering Facility: [facility] Address: [address] [place] [address] Performed By: #### A LLMG ####[facility] [id number] [place] [address] [place] Calcium.ionized adjusted to pH 7.4 (BldA) [Moles/Vol] 1.22 mmol/L Normal 1.08-1.30 [facility] Comment on above: Order Comment: Speci men Type: ARTERIAL BLOOD SPECIMENOrdering Facility: [facility] Address: [address] [place] [address] Performed By: #### A LLMG ####[facility] [id number] [place] [address] [place] Carboxyhemoglobin (BldA) [Mass fraction] 1.6 % Normal 0.0-2.0 [facility] Comment on above: Order Comment: Speci men Type: ARTERIAL BLOOD SPECIMENOrdering Facility: [facility] Address: [address] [place] [address] Result Comment: Carb oxyhemoglobin Reference Range for Smokers: 2.0-8.0% Performed By: #### A LLMG ####[facility] LABCLIA [id number] [place] [address] [place] [facility] CO2 (Bld) [Partial pressure] 45 mm Hg Normal 36-46 [facility] Comment on above: Order Comment: Speci men Type: ARTERIAL BLOOD SPECIMENOrdering Facility: [facility] Address: [address] [place] [address] Performed By: #### A LLMG ####[facility] LABCLIA [id number] [address] [place] [facility] CO2 adjusted to patient's actual temperature (Bld) [Partial pressure] 45 mmHg Normal 36-46 [facility] Comment on above: Order Comment: Speci men Type: ARTERIAL BLOOD SPECIMENOrdering Facility: [facility] Address: [address] [place] [address] Performed By: #### A LLMG ####[facility] LABCLIA [id number] [place] [address] [place] [facility] Glucose [Mass/Vol] 146 mg/dL High 60-105 [facility] Comment on above: Order Comment: Speci men Type: ARTERIAL BLOOD SPECIMENOrdering Facility: [facility] Address: [address] [place] [address] Performed By: #### A LLMG ####[facility] LABCLIA [id number] [place] [address] [place] HCO3 (Bld) [Moles/Vol] 23 mmol/L Normal 22-26 [facility] Comment on above: Order Comment: Speci men Type: ARTERIAL BLOOD SPECIMENOrdering Facility: [facility] Address: [address] [place] [address] Performed By: #### A LLMG ####[facility] LABCLIA [id number] [id number] [address] [place] Hematocrit (Bld) [Volume fraction] 40.0 % Normal 36.0-46.0 [facility] Comment on above: Order Comment: Speci men Type: ARTERIAL BLOOD SPECIMENOrdering Facility: [facility] Address: [address] [place] [address] Performed By: #### A LLMG ####[facility] LABCLIA [id number] [place] [address] [place] Hemoglobin (Bld) [Mass/Vol] 13.0 g/dL Normal 11.5-15.5 [facility] Comment on above: Order Comment: Speci men Type: ARTERIAL BLOOD SPECIMENOrdering Facility: [facility] Address: [address] [place] [address] Performed By: #### A LLMG ####[facility] LABCLIA [id number] [place] [address] [place] Lactate [Moles/Vol] 3.1 mmol/L High 0.5-2.2 [facility] Comment on above: Order Comment: Speci men Type: ARTERIAL BLOOD SPECIMENOrdering Facility: [facility] Address: [address] [place] [address] Performed By: #### A LLMG ####[facility] LABCLIA [id number] [place] [address] [place] Magnesium [Moles/Vol] 0.60 mmol/L Normal 0.45-0.60 [facility] Comment on above: Order Comment: Speci men Type: ARTERIAL BLOOD SPECIMENOrdering Facility: [facility] Address: [address] [place] [address] Performed By: #### A LLMG ####[facility] LABCLIA [id number] [place] [address] [place] Methemoglobin (Bld) [Mass fraction] 0.8 % Normal 0.0-1.5 [facility] Comment on above: Order Comment: Speci men Type: ARTERIAL BLOOD SPECIMENOrdering Facility: [facility] Address: [address] [place] [address] Performed By: #### A LLMG ####[facility] LABCLIA [id number] [place] [address] [place] Oxygen (Bld) [Partial pressure] 212 mm Hg High 85-95 [facility] Comment on above: Order Comment: Speci men Type: ARTERIAL BLOOD SPECIMENOrdering Facility: [facility] Address: [address] [place] [address] Performed By: #### A LLMG ####[facility] LABCLIA [id number] [place] [address] [place] Oxygen adjusted to patient's actual temperature (Bld) [Partial pressure] 212 mmHg High 85-95 [facility] Comment on above: Order Comment: Speci men Type: ARTERIAL BLOOD SPECIMENOrdering Facility: [facility] Address: [address] [place] [address] Performed By: #### A LLMG ####[facility] LABIA [id number] [place] [address] [place] Oxyhemoglobin (BldA) [Mass fraction] 97 % Normal 95-98 [facility] Comment on above: Order Comment: Speci men Type: ARTERIAL BLOOD SPECIMENOrdering Facility: [facility] Address: [address] [place] [address] Performed By: #### A LLMG ####[facility] LABCLIA [id number] [place] [address] [place] pH (Bld) 7.34 [pH] Low 7.35-7.45 [facility] Comment on above: Order Comment: Speci men Type: ARTERIAL BLOOD SPECIMENOrdering Facility: [facility] Address: [address] [place] [address] Performed By: #### A LLMG ####[facility] LABCLIA [id number] [place] [address] [place] pH adjusted to patient's actual temperature (Bld) 7.34 Low 7.35-7.45 [facility] Comment on above: Order Comment: Speci men Type: ARTERIAL BLOOD SPECIMENOrdering Facility: [facility] Address: [address] [place] [address] Performed By: #### A LLMG ####[facility] LABCLIA [id number] [place] [address] [place] Potassium [Moles/Vol] 3.4 mmol/L Low 3.5-5.0 [facility] Comment on above: Order Comment: Speci men Type: ARTERIAL BLOOD SPECIMENOrdering Facility: [facility] Address: [address] [place] [address] Performed By: #### A LLMG ####[facility] LABCLIA [id number] [place] [address] [place] Sodium [Moles/Vol] 140 mmol/L Normal 136-144 [facility] Comment on above: Order Comment: Speci men Type: ARTERIAL BLOOD SPECIMENOrdering Facility: [facility] Address: [address] [place] [address] Performed By: #### A LLMG ####[facility] LABCLIA [id number] [place] [address] [place] Base deficit (BldA) [Moles/Vol] -1 mmol/L Normal -2-0 [facility] Comment on above: Order Comment: Speci men Type: ARTERIAL BLOOD SPECIMENOrdering Facility: [facility] Address: [address] [place] [address] Performed By: #### A LLMG ####[facility] LABCLIA [id number] [place] [address] [place] Calcium.ionized (Bld) [Mass/Vol] 1.21 mmol/L Normal 1.08-1.30 [facility] Comment on above: Order Comment: Speci men Type: ARTERIAL BLOOD SPECIMENOrdering Facility: [facility] Address: [address] [place] [address] Performed By: #### A LLMG ####[facility] LABIA [id number] [place] [address] [place] Calcium.ionized adjusted to pH 7.4 (BldA) [Moles/Vol] 1.17 mmol/L Normal 1.08-1.30 [facility] Comment on above: Order Comment: Speci men Type: ARTERIAL BLOOD SPECIMENOrdering Facility: [facility] Address: [address] [place] [address] Performed By: #### A LLMG ####[facility] LABIA [id number] [place] [address] [place] Carboxyhemoglobin (BldA) [Mass fraction] 1.9 % Normal 0.0-2.0 [facility] Comment on above: Order Comment: Speci men Type: ARTERIAL BLOOD SPECIMENOrdering Facility: [facility] Address: [address] [place] [address] Result Comment: Carb oxyhemoglobin Reference Range for Smokers: 2.0-8.0% Performed By: #### A LLMG ####[facility] LABIA [id number] [place] [address] [place] CO2 (Bld) [Partial pressure] 45 mm Hg Normal 36-46 [facility] Comment on above: Order Comment: Speci men Type: ARTERIAL BLOOD SPECIMENOrdering Facility: [facility] Address: [address] [place] [address] Performed By: #### A LLMG ####[facility] LABIA [id number] [place] [address] [place] CO2 adjusted to patient's actual temperature (Bld) [Partial pressure] 45 mmHg Normal 36-46 [facility] Comment on above: Order Comment: Speci men Type: ARTERIAL BLOOD SPECIMENOrdering Facility: [facility] Address: [address] [place], [place] [id number] Performed By: #### A LLMG ####[facility] LABCLIA [id number] [place] [address] [place] Glucose [Mass/Vol] 148 mg/dL High 60-105 [facility] Comment on above: Order Comment: Speci men Type: ARTERIAL BLOOD SPECIMENOrdering Facility: [facility] Address: [address] [place] [address] Performed By: #### A LLMG ####[facility] LABCLIA [id number] [place] [address] [place] HCO3 (Bld) [Moles/Vol] 24 mmol/L Normal 22-26 [facility] Comment on above: Order Comment: Speci men Type: ARTERIAL BLOOD SPECIMENOrdering Facility: [facility] Address: [address] [place] [address] Performed By: #### A LLMG ####[facility] LABCLIA [id number] [place] [address] [place] Hematocrit (Bld) [Volume fraction] 40.9 % Normal 36.0-46.0 [facility] Comment on above: Order Comment: Speci men Type: ARTERIAL BLOOD SPECIMENOrdering Facility: [facility] Address: [address] [place] [address] Performed By: #### A LLMG ####[facility] LABCLIA [id number] [place] [address] [place] Hemoglobin (Bld) [Mass/Vol] 13.3 g/dL Normal 11.5-15.5 [facility] Comment on above: Order Comment: Speci men Type: ARTERIAL BLOOD SPECIMENOrdering Facility: [facility] Address: [address] [place] [address] Performed By: #### A LLMG ####[facility] LABCLIA [id number] [place] [address] [place] Lactate [Moles/Vol] 3.8 mmol/L High 0.5-2.2 [facility] Comment on above: Order Comment: Speci men Type: ARTERIAL BLOOD SPECIMENOrdering Facility: [facility] Address: [address] [place] [address] Performed By: #### A LLMG ####[facility] LABIA [id number] [place] [address] [place] Magnesium [Moles/Vol] 0.66 mmol/L High 0.45-0.60 [facility] Comment on above: Order Comment: Speci men Type: ARTERIAL BLOOD SPECIMENOrdering Facility: [facility] Address: [address] [place] [address] Performed By: #### A LLMG ####[facility] LABIA [id number] [place] [address] [place] Methemoglobin (Bld) [Mass fraction] 0.5 % Normal 0.0-1.5 [facility] Comment on above: Order Comment: Speci men Type: ARTERIAL BLOOD SPECIMENOrdering Facility: [facility] Address: [address] [place] [address] Performed By: #### A LLMG ####[facility] LABIA [id number] [place] [id number] [place] Oxygen (Bld) [Partial pressure] 115 mm Hg High 85-95 [facility] Comment on above: Order Comment: Speci men Type: ARTERIAL BLOOD SPECIMENOrdering Facility: [facility] Address: [address] [place] [address] Performed By: #### A LLMG ####[facility] LABIA [id number] [place] [id number] [place] Oxygen adjusted to patient's actual temperature (Bld) [Partial pressure] 115 mmHg High 85-95 [facility] Comment on above: Order Comment: Speci men Type: ARTERIAL BLOOD SPECIMENOrdering Facility: [facility] Address: [address] [place] [address] Performed By: #### A LLMG ####[facility] LABCLIA [id number] [place] [address] [place] Oxyhemoglobin (BldA) [Mass fraction] 97 % Normal 95-98 [facility] Comment on above: Order Comment: Speci men Type: ARTERIAL BLOOD SPECIMENOrdering Facility: [facility] Address: [address] [place] [address] Performed By: #### A LLMG ####[facility] LABCLIA [id number] [place] [address] [place] pH (Bld) 7.35 [pH] Normal 7.35-7.45 [facility] Comment on above: Order Comment: Speci men Type: ARTERIAL BLOOD SPECIMENOrdering Facility: [facility] Address: [address] [place] [address] Performed By: #### A LLMG ####[facility] LABIA [id number] [place] [address] [place] pH adjusted to patient's actual temperature (Bld) 7.35 Normal 7.35-7.45 [facility] Comment on above: Order Comment: Speci men Type: ARTERIAL BLOOD SPECIMENOrdering Facility: [facility] Address: [address] [place] [address] Performed By: #### A LLMG ####[facility] LABIA [id number] [place] [address] [place] Potassium [Moles/Vol] 3.6 mmol/L Normal 3.5-5.0 [facility] Comment on above: Order Comment: Speci men Type: ARTERIAL BLOOD SPECIMENOrdering Facility: [facility] Address: [address] [place] [address] Performed By: #### A LLMG ####[facility] LABIA [id number] [place] [address] [place] Sodium [Moles/Vol] 141 mmol/L Normal 136-144 [facility] Comment on above: Order Comment: Speci men Type: ARTERIAL BLOOD SPECIMENOrdering Facility: [facility] Address: [address] [place] [address] Performed By: #### A LLMG ####[facility] LABIA [id number] [place] [address] [place] Base deficit (BldA) [Moles/Vol] -1 mmol/L Normal -2-0 [facility] Comment on above: Order Comment: Speci men Type: ARTERIAL BLOOD SPECIMENOrdering Facility: [facility] Address: [address] [place] [address] Performed By: #### A LLMG ####[facility] [id number] [place] [address] [place] Calcium.ionized (Bld) [Mass/Vol] 1.03 mmol/L Low 1.08-1.30 [facility] Comment on above: Order Comment: Speci men Type: ARTERIAL BLOOD SPECIMENOrdering Facility: [facility] Address: [address] [place] [address] Performed By: #### A LLMG ####[facility] [id number] [place] [address] [place] Calcium.ionized adjusted to pH 7.4 (BldA) [Moles/Vol] 1.00 mmol/L Low 1.08-1.30 [facility] Comment on above: Order Comment: Speci men Type: ARTERIAL BLOOD SPECIMENOrdering Facility: [facility] Address: [address] [place] [address] Performed By: #### A LLMG ####[facility] LABIA [id number] [place] [address] [place] Carboxyhemoglobin (BldA) [Mass fraction] 2.1 % High 0.0-2.0 [facility] Comment on above: Order Comment: Speci men Type: ARTERIAL BLOOD SPECIMENOrdering Facility: [facility] Address: [address] [place] [address] Result Comment: Carb oxyhemoglobin Reference Range for Smokers: 2.0-8.0% Performed By: #### A LLMG ####[facility] LABCLIA [id number] [place] [address] [place] CO2 (Bld) [Partial pressure] 44 mm Hg Normal 36-46 [facility] Comment on above: Order Comment: Speci men Type: ARTERIAL BLOOD SPECIMENOrdering Facility: [facility] Address: [address] [place] [address] Performed By: #### A LLMG ####[facility] LABIA [id number] [place] [address] [place] CO2 adjusted to patient's actual temperature (Bld) [Partial pressure] 44 mmHg Normal 36-46 [facility] Comment on above: Order Comment: Speci men Type: ARTERIAL BLOOD SPECIMENOrdering Facility: [facility] Address: [address] [place] [address] Performed By: #### A LLMG ####[facility] LABIA [id number] [place] [address] [place] Glucose [Mass/Vol] 158 mg/dL High 60-105 [facility] Comment on above: Order Comment: Speci men Type: ARTERIAL BLOOD SPECIMENOrdering Facility: [facility] Address: [address] [place] [address] Performed By: #### A LLMG ####[facility] LABIA [id number] [place] [address] [place] HCO3 (Bld) [Moles/Vol] 24 mmol/L Normal 22-26 [facility] Comment on above: Order Comment: Speci men Type: ARTERIAL BLOOD SPECIMENOrdering Facility: [facility] Address: [address] [place] [address] Performed By: #### A LLMG ####[facility] LABCLIA [id number] [place] [address] [place] Hematocrit (Bld) [Volume fraction] 37.5 % Normal 36.0-46.0 [facility] Comment on above: Order Comment: Speci men Type: ARTERIAL BLOOD SPECIMENOrdering Facility: [facility] Address: [address] [place] [address] Performed By: #### A LLMG ####[facility] LABIA [id number] [place] [address] [place] Hemoglobin (Bld) [Mass/Vol] 12.2 g/dL Normal 11.5-15.5 [facility] Comment on above: Order Comment: Speci men Type: ARTERIAL BLOOD SPECIMENOrdering Facility: [facility] Address: [address] [place] [address] Performed By: #### A LLMG ####[facility] LABIA [id number] [place] [address] [place] Lactate [Moles/Vol] 4.3 mmol/L High 0.5-2.2 [facility] Comment on above: Order Comment: Speci men Type: ARTERIAL BLOOD SPECIMENOrdering Facility: [facility] Address: [address] [place] [address] Performed By: #### A LLMG ####[facility] LABIA [id number] [place] [address] [place] Magnesium [Moles/Vol] 0.64 mmol/L High 0.45-0.60 [facility] Comment on above: Order Comment: Speci men Type: ARTERIAL BLOOD SPECIMENOrdering Facility: [facility] Address: [address] [place] [address] Performed By: #### A LLMG ####[facility] LABIA [id number] [place] [address] [place] Methemoglobin (Bld) [Mass fraction] 1.5 % Normal 0.0-1.5 [facility] Comment on above: Order Comment: Speci men Type: ARTERIAL BLOOD SPECIMENOrdering Facility: [facility] Address: [address] [place] [address] Performed By: #### A LLMG ####[facility] LABCLIA [id number] [place] [address] [place] Oxygen (Bld) [Partial pressure] 136 mm Hg High 85-95 [facility] Comment on above: Order Comment: Speci men Type: ARTERIAL BLOOD SPECIMENOrdering Facility: [facility] Address: [address] [place] [address] Performed By: #### A LLMG ####[facility] LABCLIA [id number] [place] [address] [place] Oxygen adjusted to patient's actual temperature (Bld) [Partial pressure] 136 mmHg High 85-95 [facility] Comment on above: Order Comment: Speci men Type: ARTERIAL BLOOD SPECIMENOrdering Facility: [facility] Address: [address] [place], [place] [id number] Performed By: #### A LLMG ####[facility] LABCLIA [id number] [place] [address] [place] Oxyhemoglobin (BldA) [Mass fraction] 96 % Normal 95-98 [facility] Comment on above: Order Comment: Speci men Type: ARTERIAL BLOOD SPECIMENOrdering Facility: [facility] Address: [address] [place] [address] Performed By: #### A LLMG ####[facility] LABCLIA [id number] [place] [address] [place] pH (Bld) 7.36 [pH] Normal 7.35-7.45 [facility] Comment on above: Order Comment: Speci men Type: ARTERIAL BLOOD SPECIMENOrdering Facility: [facility] Address: [address] [place] [address] Performed By: #### A LLMG ####[facility] LABCLIA [id number] [place] [address] [place] pH adjusted to patient's actual temperature (Bld) 7.36 Normal 7.35-7.45 [facility] Comment on above: Order Comment: Speci men Type: ARTERIAL BLOOD SPECIMENOrdering Facility: [facility] Address: [address] [place] [address] Performed By: #### A LLMG ####[facility] LABCLIA [id number] [place] [address] [place] Potassium [Moles/Vol] 3.7 mmol/L Normal 3.5-5.0 [facility] Comment on above: Order Comment: Speci men Type: ARTERIAL BLOOD SPECIMENOrdering Facility: [facility] Address: [address] [place] [address] Performed By: #### A LLMG ####[facility] LABIA [id number] [place] [address] [place] Sodium [Moles/Vol] 142 mmol/L Normal 136-144 [facility] Comment on above: Order Comment: Speci men Type: ARTERIAL BLOOD SPECIMENOrdering Facility: [facility] Address: [address] [place] [address] Performed By: #### A LLMG ####[facility] LABIA [id number] [place] [address] [place] Base excess Calc (Bld) [Moles/Vol] 3 mmol/L High 0-2 [facility] Comment on above: Order Comment: Speci men Type: ARTERIAL BLOOD SPECIMENOrdering Facility: [facility] Address: [address] [place] [address] Performed By: #### A LLMG ####[facility] LABCLIA [id number] [place] [address] [place] Calcium.ionized (Bld) [Mass/Vol] 1.09 mmol/L Normal 1.08-1.30 [facility] Comment on above: Order Comment: Speci men Type: ARTERIAL BLOOD SPECIMENOrdering Facility: [facility] Address: [address] [place] [address] Performed By: #### A LLMG ####[facility] LABCLIA [id number] [place] [address] [place] Calcium.ionized adjusted to pH 7.4 (BldA) [Moles/Vol] 1.11 mmol/L Normal 1.08-1.30 [facility] Comment on above: Order Comment: Speci men Type: ARTERIAL BLOOD SPECIMENOrdering Facility: [facility] Address: [address] [place] [address] Performed By: #### A LLMG ####[facility] LABCLIA [id number] [place] [address] [place] Carboxyhemoglobin (BldA) [Mass fraction] 2.1 % High 0.0-2.0 [facility] Comment on above: Order Comment: Speci men Type: ARTERIAL BLOOD SPECIMENOrdering Facility: [facility] Address: [address] [place] [address] Result Comment: Carb oxyhemoglobin Reference Range for Smokers: 2.0-8.0% Performed By: #### A LLMG ####[facility] LABCLIA [id number] [place] [address] [place] CO2 (Bld) [Partial pressure] 41 mm Hg Normal 36-46 [facility] Comment on above: Order Comment: Speci men Type: ARTERIAL BLOOD SPECIMENOrdering Facility: [facility] Address: [address] [place] [address] Performed By: #### A LLMG ####[facility] LABCLIA [id number] [place] [address] [place] CO2 adjusted to patient's actual temperature (Bld) [Partial pressure] 41 mmHg Normal 36-46 [facility] Comment on above: Order Comment: Speci men Type: ARTERIAL BLOOD SPECIMENOrdering Facility: [facility] Address: [address] [place] [address] Performed By: #### A LLMG ####[facility] LABCLIA [id number] [place] [address] [place] Glucose [Mass/Vol] 166 mg/dL High 60-105 [facility] Comment on above: Order Comment: Speci men Type: ARTERIAL BLOOD SPECIMENOrdering Facility: [facility] Address: [address] [place] [address] Performed By: #### A LLMG ####[facility] LABCLIA [id number] [place] [address] [place] HCO3 (Bld) [Moles/Vol] 27 mmol/L High 22-26 [facility] Comment on above: Order Comment: Speci men Type: ARTERIAL BLOOD SPECIMENOrdering Facility: [facility] Address: [address] [place] [address] Performed By: #### A LLMG ####[facility] LABCLIA [id number] [place] [address] [place] Hematocrit (Bld) [Volume fraction] 35.9 % Low 36.0-46.0 [facility] Comment on above: Order Comment: Speci men Type: ARTERIAL BLOOD SPECIMENOrdering Facility: [facility] Address: [address] [place] [address] Performed By: #### A LLMG ####[facility] LABCLIA [id number] [place] [address] [place] Hemoglobin (Bld) [Mass/Vol] 11.6 g/dL Normal 11.5-15.5 [facility] Comment on above: Order Comment: Speci men Type: ARTERIAL BLOOD SPECIMENOrdering Facility: [facility] Address: [address] [place] [address] Performed By: #### A LLMG ####[facility] LABCLIA [id number] [place] [address] [place] Lactate [Moles/Vol] 3.1 mmol/L High 0.5-2.2 [facility] Comment on above: Order Comment: Speci men Type: ARTERIAL BLOOD SPECIMENOrdering Facility: [facility] Address: [address] [place] [address] Performed By: #### A LLMG ####[facility] LABCLIA [id number] [place] [address] [place] Magnesium [Moles/Vol] 0.59 mmol/L Normal 0.45-0.60 [facility] Comment on above: Order Comment: Speci men Type: ARTERIAL BLOOD SPECIMENOrdering Facility: [facility] Address: [address] [place] [address] Performed By: #### A LLMG ####[facility] LABIA [id number] [place] [address] [place] Methemoglobin (Bld) [Mass fraction] 0.6 % Normal 0.0-1.5 [facility] Comment on above: Order Comment: Speci men Type: ARTERIAL BLOOD SPECIMENOrdering Facility: [facility] Address: [address] [place] [address] Performed By: #### A LLMG ####[facility] LABIA [id number] [place] [address] [place] Oxygen (Bld) [Partial pressure] 168 mm Hg High 85-95 [facility] Comment on above: Order Comment: Speci men Type: ARTERIAL BLOOD SPECIMENOrdering Facility: [facility] Address: [address] [place] [address] Performed By: #### A LLMG ####[facility] LABCLIA [id number] [place] [address] [place] Oxygen adjusted to patient's actual temperature (Bld) [Partial pressure] 168 mmHg High 85-95 [facility] Comment on above: Order Comment: Speci men Type: ARTERIAL BLOOD SPECIMENOrdering Facility: [facility] Address: [address] [place] [address] Performed By: #### A LLMG ####[facility] LABCLIA [id number] [place] [address] [place] Oxyhemoglobin (BldA) [Mass fraction] 97 % Normal 95-98 [facility] Comment on above: Order Comment: Speci men Type: ARTERIAL BLOOD SPECIMENOrdering Facility: [facility] Address: [address] [place] [address] Performed By: #### A LLMG ####[facility] LABCLIA [id number] [place] [address] [place] pH (Bld) 7.43 [pH] Normal 7.35-7.45 [facility] Comment on above: Order Comment: Speci men Type: ARTERIAL BLOOD SPECIMENOrdering Facility: [facility] Address: [address] [place] [address] Performed By: #### A LLMG ####[facility] LABCLIA [id number] [place] [address] [place] pH adjusted to patient's actual temperature (Bld) 7.43 Normal 7.35-7.45 [facility] Comment on above: Order Comment: Speci men Type: ARTERIAL BLOOD SPECIMENOrdering Facility: [facility] Address: [address] [place] [address] Performed By: #### A LLMG ####[facility] LABCLIA [id number] [place] [id number] [place] Potassium [Moles/Vol] 3.5 mmol/L Normal 3.5-5.0 [facility] Comment on above: Order Comment: Speci men Type: ARTERIAL BLOOD SPECIMENOrdering Facility: [facility] Address: [address] [place] [address] Performed By: #### A LLMG ####[facility] LABCLIA [id number] [place] [address] [place] Sodium [Moles/Vol] 143 mmol/L Normal 136-144 [facility] Comment on above: Order Comment: Speci men Type: ARTERIAL BLOOD SPECIMENOrdering Facility: [facility] Address: [address] [place] [address] Performed By: #### A LLMG ####[facility] LABCLIA [id number] [place] [address] [place] Base excess Calc (Bld) [Moles/Vol] 2 mmol/L Normal 0-2 [facility] Comment on above: Order Comment: Speci men Type: ARTERIAL BLOOD SPECIMENOrdering Facility: [facility] Address: [address] [place] [address] Performed By: #### A LLMG ####[facility] LABIA [id number] [place] [address] [place] Calcium.ionized (Bld) [Mass/Vol] 1.28 mmol/L Normal 1.08-1.30 [facility] Comment on above: Order Comment: Speci men Type: ARTERIAL BLOOD SPECIMENOrdering Facility: [facility] Address: [address] [place] [address] Performed By: #### A LLMG ####[facility] LABIA [id number] [place] [address] [place] Calcium.ionized adjusted to pH 7.4 (BldA) [Moles/Vol] 1.29 mmol/L Normal 1.08-1.30 [facility] Comment on above: Order Comment: Speci men Type: ARTERIAL BLOOD SPECIMENOrdering Facility: [facility] Address: [address] [place] [address] Performed By: #### A LLMG ####[facility] LABCLIA [id number] [place] [address] [place] Carboxyhemoglobin (BldA) [Mass fraction] 2.0 % Normal 0.0-2.0 [facility] Comment on above: Order Comment: Speci men Type: ARTERIAL BLOOD SPECIMENOrdering Facility: [facility] Address: [address] [place] [address] Result Comment: Carb oxyhemoglobin Reference Range for Smokers: 2.0-8.0% Performed By: #### A LLMG ####[facility] LABCLIA [id number] [place] [address] [place] CO2 (Bld) [Partial pressure] 42 mm Hg Normal 36-46 [facility] Comment on above: Order Comment: Speci men Type: ARTERIAL BLOOD SPECIMENOrdering Facility: [facility] Address: [address] [place] [address] Performed By: #### A LLMG ####[facility] LABCLIA [id number] [place] [address] [place] CO2 adjusted to patient's actual temperature (Bld) [Partial pressure] 42 mmHg Normal 36-46 [facility] Comment on above: Order Comment: Speci men Type: ARTERIAL BLOOD SPECIMENOrdering Facility: [facility] Address: [address] [place] [address] Performed By: #### A LLMG ####[facility] LABCLIA [id number] [place] [address] [place] Glucose [Mass/Vol] 226 mg/dL High 60-105 [facility] Comment on above: Order Comment: Speci men Type: ARTERIAL BLOOD SPECIMENOrdering Facility: [facility] Address: [address] [place] [address] Performed By: #### A LLMG ####[facility] LABCLIA [id number] [place] [address] [place] HCO3 (Bld) [Moles/Vol] 26 mmol/L Normal 22-26 [facility] Comment on above: Order Comment: Speci men Type: ARTERIAL BLOOD SPECIMENOrdering Facility: [facility] Address: [address] [place] [address] Performed By: #### A LLMG ####[facility] LABCLIA [id number] [place] [address] [place] Hematocrit (Bld) [Volume fraction] 32.0 % Low 36.0-46.0 [facility] Comment on above: Order Comment: Speci men Type: ARTERIAL BLOOD SPECIMENOrdering Facility: [facility] Address: [address] [place] [address] Performed By: #### A LLMG ####[facility] LABIA [id number] [place] [address] [place] Hemoglobin (Bld) [Mass/Vol] 10.3 g/dL Low 11.5-15.5 [facility] Comment on above: Order Comment: Speci men Type: ARTERIAL BLOOD SPECIMENOrdering Facility: [facility] Address: [address] [place] [address] Performed By: #### A LLMG ####[facility] LABIA [id number] [place] [address] [place] Lactate [Moles/Vol] 3.0 mmol/L High 0.5-2.2 [facility] Comment on above: Order Comment: Speci men Type: ARTERIAL BLOOD SPECIMENOrdering Facility: [facility] Address: [address] [place] [address] Performed By: #### A LLMG ####[facility] LABCLIA [id number] [place] [address] [place] Magnesium [Moles/Vol] 0.77 mmol/L High 0.45-0.60 [facility] Comment on above: Order Comment: Speci men Type: ARTERIAL BLOOD SPECIMENOrdering Facility: [facility] Address: [address] [place] [address] Performed By: #### A LLMG ####[facility] LABCLIA [id number] [place] [address] [place] Methemoglobin (Bld) [Mass fraction] 0.7 % Normal 0.0-1.5 [facility] Comment on above: Order Comment: Speci men Type: ARTERIAL BLOOD SPECIMENOrdering Facility: [facility] Address: [address] [place] [id number] Performed By: #### A LLMG ####[facility] LABCLIA [id number] [place] [id number] [place] Oxygen (Bld) [Partial pressure] 170 mm Hg High 85-95 [facility] Comment on above: Order Comment: Speci men Type: ARTERIAL BLOOD SPECIMENOrdering Facility: [facility] Address: [address] [place] [address] Performed By: #### A LLMG ####[facility] LABCLIA [id number] [place] [address] [place] Oxygen adjusted to patient's actual temperature (Bld) [Partial pressure] 170 mmHg High 85-95 [facility] Comment on above: Order Comment: Speci men Type: ARTERIAL BLOOD SPECIMENOrdering Facility: [facility] Address: [address] [place] [place] [id number] Performed By: #### A LLMG ####[facility] LABCLIA [id number] [place] [id number] [place] Oxyhemoglobin (BldA) [Mass fraction] 97 % Normal 95-98 [facility] Comment on above: Order Comment: Speci men Type: ARTERIAL BLOOD SPECIMENOrdering Facility: [facility] Address: [address] [place] [address] Performed By: #### A LLMG ####[facility] LABCLIA [id number] [place] [id number] [place] pH (Bld) 7.41 [pH] Normal 7.35-7.45 [facility] Comment on above: Order Comment: Speci men Type: ARTERIAL BLOOD SPECIMENOrdering Facility: [facility] Address: [address] [place] [address] Performed By: #### A LLMG ####[facility] LABCLIA [id number] [place] [address] [place] pH adjusted to patient's actual temperature (Bld) 7.41 Normal 7.35-7.45 [facility] Comment on above: Order Comment: Speci men Type: ARTERIAL BLOOD SPECIMENOrdering Facility: [facility] Address: [address] [place] [address] Performed By: #### A LLMG ####[facility] LABIA [id number] [place] [address] [place] Potassium [Moles/Vol] 3.5 mmol/L Normal 3.5-5.0 [facility] Comment on above: Order Comment: Speci men Type: ARTERIAL BLOOD SPECIMENOrdering Facility: [facility] Address: [address] [place] [address] Performed By: #### A LLMG ####[facility] LABIA [id number] [place] [address] [place] Sodium [Moles/Vol] 142 mmol/L Normal 136-144 [facility] Comment on above: Order Comment: Speci men Type: ARTERIAL BLOOD SPECIMENOrdering Facility: [facility] [facility] Address: [address] [place] [address] Performed By: #### A LLMG ####[facility] LABCLIA [id number] [place] [address] [place] Base deficit (BldA) [Moles/Vol] -1 mmol/L Normal -2-0 [facility] Comment on above: Order Comment: Speci men Type: ARTERIAL BLOOD SPECIMENOrdering Facility: [facility] Address: [address] [place] [address] Performed By: #### A LLMG ####[facility] LABCLIA [id number] [place] [address] [place] Calcium.ionized (Bld) [Mass/Vol] 0.96 mmol/L Low 1.08-1.30 [facility] Comment on above: Order Comment: Speci men Type: ARTERIAL BLOOD SPECIMENOrdering Facility: [facility] Address: [address] [place] [address] Performed By: #### A LLMG ####[facility] LABCLIA [id number] [place] [address] [place] Calcium.ionized adjusted to pH 7.4 (BldA) [Moles/Vol] 0.93 mmol/L Low 1.08-1.30 [facility] Comment on above: Order Comment: Speci men Type: ARTERIAL BLOOD SPECIMENOrdering Facility: [facility] Address: [address] [place] [address] Performed By: #### A LLMG ####[facility] LABIA [id number] [place] [address] [place] Carboxyhemoglobin (BldA) [Mass fraction] 1.9 % Normal 0.0-2.0 [facility] Comment on above: Order Comment: Speci men Type: ARTERIAL BLOOD SPECIMENOrdering Facility: [facility] Address: [address] [place] [address] Result Comment: Carb oxyhemoglobin Reference Range for Smokers: 2.0-8.0% Performed By: #### A LLMG ####[facility] LABCLIA [id number] [place] [address] [place] CO2 (Bld) [Partial pressure] 45 mm Hg Normal 36-46 [facility] Comment on above: Order Comment: Speci men Type: ARTERIAL BLOOD SPECIMENOrdering Facility: [facility] Address: [address] [place] [address] Performed By: #### A LLMG ####[facility] LABCLIA [id number] [place] [address] [place] CO2 adjusted to patient's actual temperature (Bld) [Partial pressure] 45 mmHg Normal 36-46 [facility] Comment on above: Order Comment: Speci men Type: ARTERIAL BLOOD SPECIMENOrdering Facility: [facility] Address: [address] [place] [address] Performed By: #### A LLMG ####[facility] LABCLIA [id number] [place] [address] [place] Glucose [Mass/Vol] 262 mg/dL High 60-105 [facility] Comment on above: Order Comment: Speci men Type: ARTERIAL BLOOD SPECIMENOrdering Facility: [facility] Address: [address] [place] [address] Performed By: #### A LLMG ####[facility] LABCLIA [id number] [place] [address] [place] HCO3 (Bld) [Moles/Vol] 24 mmol/L Normal 22-26 [facility] Comment on above: Order Comment: Speci men Type: ARTERIAL BLOOD SPECIMENOrdering Facility: [facility] Address: [address] [place] [address] Performed By: #### A LLMG ####[facility] LABCLIA [id number] [place] [address] [place] Hematocrit (Bld) [Volume fraction] 32.3 % Low 36.0-46.0 [facility] Comment on above: Order Comment: Speci men Type: ARTERIAL BLOOD SPECIMENOrdering Facility: [facility] Address: [address] [place] [address] Performed By: #### A LLMG ####[facility] LABCLIA [id number] [place] [address] [place] Hemoglobin (Bld) [Mass/Vol] 10.5 g/dL Low 11.5-15.5 [facility] Comment on above: Order Comment: Speci men Type: ARTERIAL BLOOD SPECIMENOrdering Facility: [facility] Address: [address] [place] [address] Performed By: #### A LLMG ####[facility] LABCLIA [id number] [place] [address] [place] Lactate [Moles/Vol] 3.5 mmol/L High 0.5-2.2 [facility] Comment on above: Order Comment: Speci men Type: ARTERIAL BLOOD SPECIMENOrdering Facility: [facility] Address: [address] [place] [address] Performed By: #### A LLMG ####[facility] LABCLIA [id number] [place] [address] [place] Magnesium [Moles/Vol] 0.41 mmol/L Low 0.45-0.60 [facility] Comment on above: Order Comment: Speci men Type: ARTERIAL BLOOD SPECIMENOrdering Facility: [facility] Address: [address] [place] [address] Performed By: #### A LLMG ####[facility] LABIA [id number] [place] [address] [place] Methemoglobin (Bld) [Mass fraction] 0.5 % Normal 0.0-1.5 [facility] Comment on above: Order Comment: Speci men Type: ARTERIAL BLOOD SPECIMENOrdering Facility: [facility] Address: [address] [place] [address] Performed By: #### A LLMG ####[facility] LABIA [id number] [place] [address] [place] Oxygen (Bld) [Partial pressure] 199 mm Hg High 85-95 [facility] Comment on above: Order Comment: Speci men Type: ARTERIAL BLOOD SPECIMENOrdering Facility: [facility] Address: [address] [place] [address] Performed By: #### A LLMG ####[facility] LABIA [id number] [place] [address] [place] Oxygen adjusted to patient's actual temperature (Bld) [Partial pressure] 199 mmHg High 85-95 [facility] Comment on above: Order Comment: Speci men Type: ARTERIAL BLOOD SPECIMENOrdering Facility: [facility] Address: [address] [place] [address] Performed By: #### A LLMG ####[facility] LABCLIA [id number] [place] [address] [place] Oxyhemoglobin (BldA) [Mass fraction] 98 % Normal 95-98 [facility] Comment on above: Order Comment: Speci men Type: ARTERIAL BLOOD SPECIMENOrdering Facility: [facility] Address: [address] [place] [address] Performed By: #### A LLMG ####[facility] LABCLIA [id number] [place] [address] [place] pH (Bld) 7.34 [pH] Low 7.35-7.45 [facility] Comment on above: Order Comment: Speci men Type: ARTERIAL BLOOD SPECIMENOrdering Facility: [facility] Address: [address] [place] [address] Performed By: #### A LLMG ####[facility] LABCLIA [id number] [place] [address] [place] pH adjusted to patient's actual temperature (Bld) 7.34 Low 7.35-7.45 [facility] Comment on above: Order Comment: Speci men Type: ARTERIAL BLOOD SPECIMENOrdering Facility: [facility] Address: [address] [place] [address] Performed By: #### A LLMG ####[facility] LABIA [id number] [place] [address] [place] Potassium [Moles/Vol] 3.6 mmol/L Normal 3.5-5.0 [facility] Comment on above: Order Comment: Speci men Type: ARTERIAL BLOOD SPECIMENOrdering Facility: [facility] Address: [address] [place] [address] Performed By: #### A LLMG ####[facility] LABIA [id number] [place] [address] [place] Sodium [Moles/Vol] 140 mmol/L Normal 136-144 [facility] Comment on above: Order Comment: Speci men Type: ARTERIAL BLOOD SPECIMENOrdering Facility: [facility] Address: [address] [place] [address] Performed By: #### A LLMG ####[facility] LABIA [id number] [place] [address] [place] Base deficit (BldA) [Moles/Vol] -10 mmol/L Low -2-0 [facility] Comment on above: Order Comment: Speci men Type: ARTERIAL BLOOD SPECIMENOrdering Facility: [facility] Address: [address] [place] [address] Performed By: #### A LLMG ####[facility] LABIA [id number] [place] [address] [place] Calcium.ionized (Bld) [Mass/Vol] 1.40 mmol/L High 1.08-1.30 [facility] Comment on above: Order Comment: Speci men Type: ARTERIAL BLOOD SPECIMENOrdering Facility: [facility] Address: [address] [place] [address] Performed By: #### A LLMG ####[facility] LABIA [id number] [place] [address] [place] Calcium.ionized adjusted to pH 7.4 (BldA) [Moles/Vol] 1.26 mmol/L Normal 1.08-1.30 [facility] Comment on above: Order Comment: Speci men Type: ARTERIAL BLOOD SPECIMENOrdering Facility: [facility] Address: [address] [place] [address] Performed By: #### A LLMG ####[facility] LABIA [id number] [place] [address] [place] Carboxyhemoglobin (BldA) [Mass fraction] 1.9 % Normal 0.0-2.0 [facility] Comment on above: Order Comment: Speci men Type: ARTERIAL BLOOD SPECIMENOrdering Facility: [facility] Address: [address] [place] [address] Result Comment: Carb oxyhemoglobin Reference Range for Smokers: 2.0-8.0% Performed By: #### A LLMG ####[facility] LABCLIA [id number] [place] [address] [place] CO2 (Bld) [Partial pressure] 42 mm Hg Normal 36-46 [facility] Comment on above: Order Comment: Speci men Type: ARTERIAL BLOOD SPECIMENOrdering Facility: [facility] Address: [address] [place] [address] Performed By: #### A LLMG ####[facility] LABCLIA [id number] [place] [address] [place] CO2 adjusted to patient's actual temperature (Bld) [Partial pressure] 42 mmHg Normal 36-46 [facility] Comment on above: Order Comment: Speci men Type: ARTERIAL BLOOD SPECIMENOrdering Facility: [facility] Address: [address] [place] [address] Performed By: #### A LLMG ####[facility] LABCLIA [id number] [place] [address] [place] Glucose [Mass/Vol] 283 mg/dL High 60-105 [facility] Comment on above: Order Comment: Speci men Type: ARTERIAL BLOOD SPECIMENOrdering Facility: [facility] Address: [address] [place] [address] Performed By: #### A LLMG ####[facility] LABCLIA [id number] [place] [address] [place] HCO3 (Bld) [Moles/Vol] 16 mmol/L Low 22-26 [facility] Comment on above: Order Comment: Speci men Type: ARTERIAL BLOOD SPECIMENOrdering Facility: [facility] Address: [address] [place] [address] Performed By: #### A LLMG ####[facility] LABIA [id number] [place] [address] [place] Hematocrit (Bld) [Volume fraction] 29.1 % Low 36.0-46.0 [facility] Comment on above: Order Comment: Speci men Type: ARTERIAL BLOOD SPECIMENOrdering Facility: [facility] Address: [address] [place] [address] Performed By: #### A LLMG ####[facility] LABIA [id number] [place] [address] [place] Hemoglobin (Bld) [Mass/Vol] 9.4 g/dL Low 11.5-15.5 [facility] Comment on above: Order Comment: Speci men Type: ARTERIAL BLOOD SPECIMENOrdering Facility: [facility] Address: [address] [place] [address] Performed By: #### A LLMG ####[facility] LABIA [id number] [place] [address] [place] Lactate [Moles/Vol] 3.7 mmol/L High 0.5-2.2 [facility] Comment on above: Order Comment: Speci men Type: ARTERIAL BLOOD SPECIMENOrdering Facility: [facility] Address: [address] [place] [address] Performed By: #### A LLMG ####[facility] LABIA [id number] [place] [address] [place] Magnesium [Moles/Vol] 0.67 mmol/L High 0.45-0.60 [facility] Comment on above: Order Comment: Speci men Type: ARTERIAL BLOOD SPECIMENOrdering Facility: [facility] Address: [address] [place] [address] Performed By: #### A LLMG ####[facility] LABCLIA [id number] [place] [address] [place] Methemoglobin (Bld) [Mass fraction] 1.5 % Normal 0.0-1.5 [facility] Comment on above: Order Comment: Speci men Type: ARTERIAL BLOOD SPECIMENOrdering Facility: [facility] Address: [address] [place] [address] Performed By: #### A LLMG ####[facility] LABCLIA [id number] [place] [address] [place] Oxygen (Bld) [Partial pressure] 201 mm Hg High 85-95 [facility] Comment on above: Order Comment: Speci men Type: ARTERIAL BLOOD SPECIMENOrdering Facility: [facility] Address: [address] [place] [address] Performed By: #### A LLMG ####[facility] LABIA [id number] [place] [address] [place] Oxygen adjusted to patient's actual temperature (Bld) [Partial pressure] 201 mmHg High 85-95 [facility] Comment on above: Order Comment: Speci men Type: ARTERIAL BLOOD SPECIMENOrdering Facility: [facility] Address: [address] [place] [address] Performed By: #### A LLMG ####[facility] LABIA [id number] [place] [address] [place] Oxyhemoglobin (BldA) [Mass fraction] 96 % Normal 95-98 [facility] Comment on above: Order Comment: Speci men Type: ARTERIAL BLOOD SPECIMENOrdering Facility: [facility] Address: [address] [place] [address] Performed By: #### A LLMG ####[facility] LABCLIA [id number] [place] [id number] [place] pH (Bld) 7.22 [pH] Low 7.35-7.45 [facility] Comment on above: Order Comment: Speci men Type: ARTERIAL BLOOD SPECIMENOrdering Facility: [facility] Address: [address] [place] [address] Performed By: #### A LLMG ####[facility] LABCLIA [id number] [place] [address] [place] pH adjusted to patient's actual temperature (Bld) 7.22 Low 7.35-7.45 [facility] Comment on above: Order Comment: Speci men Type: ARTERIAL BLOOD SPECIMENOrdering Facility: [facility] Address: [address] [place] [address] Performed By: #### A LLMG ####[facility] LABIA [id number] [place] [address] [place] Potassium [Moles/Vol] 3.2 mmol/L Low 3.5-5.0 [facility] Comment on above: Order Comment: Speci men Type: ARTERIAL BLOOD SPECIMENOrdering Facility: [facility] Address: [address] [place] [address] Performed By: #### A LLMG ####[facility] LABIA [id number] [place] [address] [place] Sodium [Moles/Vol] 136 mmol/L Normal 136-144 [facility] Comment on above: Order Comment: Speci men Type: ARTERIAL BLOOD SPECIMENOrdering Facility: [facility] Address: [address] [place] [address] Performed By: #### A LLMG ####[facility] LABCLIA [id number] [place] [address] [place] Base deficit (BldA) [Moles/Vol] -4 mmol/L Low -2-0 [facility] Comment on above: Order Comment: Speci men Type: ARTERIAL BLOOD SPECIMENOrdering Facility: [facility] Address: [address] [place] [address] Performed By: #### A LLMG ####[facility] LABIA [id number] [place] [address] [place] Calcium.ionized (Bld) [Mass/Vol] 0.79 mmol/L Low 1.08-1.30 [facility] Comment on above: Order Comment: Speci men Type: ARTERIAL BLOOD SPECIMENOrdering Facility: [facility] Address: [address] [place] [address] Performed By: #### A LLMG ####[facility] LABIA [id number] [place] [address] [place] Calcium.ionized adjusted to pH 7.4 (BldA) [Moles/Vol] 0.79 mmol/L Low 1.08-1.30 [facility] Comment on above: Order Comment: Speci men Type: ARTERIAL BLOOD SPECIMENOrdering Facility: [facility] Address: [address] [place] [address] Performed By: #### A LLMG ####[facility] LABIA [id number] [place] [address] [place] Carboxyhemoglobin (BldA) [Mass fraction] 2.3 % High 0.0-2.0 [facility] Comment on above: Order Comment: Speci men Type: ARTERIAL BLOOD SPECIMENOrdering Facility: [facility] Address: [address] [place] [address] Result Comment: Carb oxyhemoglobin Reference Range for Smokers: 2.0-8.0% Performed By: #### A LLMG ####[facility] LABIA [id number] [place] [address] [place] CO2 (Bld) [Partial pressure] 35 mm Hg Low 36-46 [facility] Comment on above: Order Comment: Speci men Type: ARTERIAL BLOOD SPECIMENOrdering Facility: [facility] Address: [address] [place] [address] Performed By: #### A LLMG ####[facility] LABCLIA [id number] [place] [address] [place] CO2 adjusted to patient's actual temperature (Bld) [Partial pressure] 35 mmHg Low 36-46 [facility] Comment on above: Order Comment: Speci men Type: ARTERIAL BLOOD SPECIMENOrdering Facility: [facility] Address: [address] [place] [address] Performed By: #### A LLMG ####[facility] LABCLIA [id number] [place] [address] [place] COMMENTS Urgent Value: ICA, NCA Normal [facility] Comment on above: Order Comment: Speci men Type: ARTERIAL BLOOD SPECIMENOrdering Facility: [facility] Address: [address] [place] [address] Performed By: #### A LLMG ####[facility] LABCLIA [id number] [place] [address] [place] DATE/TIME NOTIFIED [id number] AM Normal [facility] Comment on above: Order Comment: Speci men Type: ARTERIAL BLOOD SPECIMENOrdering Facility: [facility] Address: [address] [place] [address] Performed By: #### A LLMG ####[facility] LABCLIA [id number] [place] [address] [place] Glucose [Mass/Vol] 126 mg/dL High 60-105 [facility] Comment on above: Order Comment: Speci men Type: ARTERIAL BLOOD SPECIMENOrdering Facility: [facility] Address: [address] [place], [place] [id number] Performed By: #### A LLMG ####[facility] LABCLIA [id number] [place] [address] [place] HCO3 (Bld) [Moles/Vol] 20 mmol/L Low 22-26 [facility] Comment on above: Order Comment: Speci men Type: ARTERIAL BLOOD SPECIMENOrdering Facility: [facility] Address: [address] [place] [address] Performed By: #### A LLMG ####[facility] LABCLIA [id number] [place] [address] [place] Hematocrit (Bld) [Volume fraction] 24.9 % Low 36.0-46.0 [facility] Comment on above: Order Comment: Speci men Type: ARTERIAL BLOOD SPECIMENOrdering Facility: [facility] Address: [address] [place] [address] Performed By: #### A LLMG ####[facility] LABIA [id number] [place] [address] [place] Hemoglobin (Bld) [Mass/Vol] 8.0 g/dL Low 11.5-15.5 [facility] Comment on above: Order Comment: Speci men Type: ARTERIAL BLOOD SPECIMENOrdering Facility: [facility] Address: [address] [place] [address] Performed By: #### A LLMG ####[facility] LABIA [id number] [place] [address] [place] Lactate [Moles/Vol] 1.8 mmol/L Normal 0.5-2.2 [facility] Comment on above: Order Comment: Speci men Type: ARTERIAL BLOOD SPECIMENOrdering Facility: [facility] Address: [address] [place] [address] Performed By: #### A LLMG ####[facility] LABCLIA [id number] [place] [address] [place] Magnesium [Moles/Vol] 0.82 mmol/L High 0.45-0.60 [facility] Comment on above: Order Comment: Speci men Type: ARTERIAL BLOOD SPECIMENOrdering Facility: [facility] Address: [address] [place] [address] Performed By: #### A LLMG ####[facility] LABIA [id number] [place] [address] [place] Methemoglobin (Bld) [Mass fraction] 0.7 % Normal 0.0-1.5 [facility] Comment on above: Order Comment: Speci men Type: ARTERIAL BLOOD SPECIMENOrdering Facility: [facility] Address: [address] [place] [address] Performed By: #### A LLMG ####[facility] LABCLIA [id number] [place] [address] [place] NOTIFIED WHOM Reported to OR78 S. Kis Normal [facility] Comment on above: Order Comment: Speci men Type: ARTERIAL BLOOD SPECIMENOrdering Facility: [facility] Address: [address] [place] [address] Performed By: #### A LLMG ####[facility] LABCLIA [id number] [place] [address] [place] Oxygen (Bld) [Partial pressure] 279 mm Hg High 85-95 [facility] Comment on above: Order Comment: Speci men Type: ARTERIAL BLOOD SPECIMENOrdering Facility: [facility] Address: [address] [place] [address] Performed By: #### A LLMG ####[facility] LABCLIA [id number] [place] [address] [place] Oxygen adjusted to patient's actual temperature (Bld) [Partial pressure] 279 mmHg High 85-95 [facility] Comment on above: Order Comment: Speci men Type: ARTERIAL BLOOD SPECIMENOrdering Facility: [facility] Address: [address] [place] [id number] Performed By: #### A LLMG ####[facility] LABCLIA [id number] [place] [id number] [place] Oxyhemoglobin (BldA) [Mass fraction] 97 % Normal 95-98 [facility] Comment on above: Order Comment: Speci men Type: ARTERIAL BLOOD SPECIMENOrdering Facility: [facility] Address: [address] [place] [address] Performed By: #### A LLMG ####[facility] LABCLIA [id number] [place] [address] [place] pH (Bld) 7.39 [pH] Normal 7.35-7.45 [facility] Comment on above: Order Comment: Speci men Type: ARTERIAL BLOOD SPECIMENOrdering Facility: [facility] Address: [address] [place] [address] Performed By: #### A LLMG ####[facility] LABCLIA [id number] [place] [address] [place] pH adjusted to patient's actual temperature (Bld) 7.39 Normal 7.35-7.45 [facility] Comment on above: Order Comment: Speci men Type: ARTERIAL BLOOD SPECIMENOrdering Facility: [facility] Address: [address] [place] [address] Performed By: #### A LLMG ####[facility] LABCLIA [id number] [place] [address] [place] Potassium [Moles/Vol] 3.4 mmol/L Low 3.5-5.0 [facility] Comment on above: Order Comment: Speci men Type: ARTERIAL BLOOD SPECIMENOrdering Facility: [facility] Address: [address] [place] [address] Performed By: #### A LLMG ####[facility] LABCLIA [id number] [place] [address] [place] Sodium [Moles/Vol] 139 mmol/L Normal 136-144 [facility] Comment on above: Order Comment: Speci men Type: ARTERIAL BLOOD SPECIMENOrdering Facility: [facility] Address: [address] [place] [address] Performed By: #### A LLMG ####[facility] LABCLIA [id number] [place] [address] [place] Base deficit (BldA) [Moles/Vol] -1 mmol/L Normal -2-0 [facility] Comment on above: Order Comment: Speci men Type: ARTERIAL BLOOD SPECIMENOrdering Facility: [facility] Address: [address] [place] [address] Performed By: #### A LLMG ####[facility] LABCLIA [id number] [place] [address] [place] Calcium.ionized (Bld) [Mass/Vol] 1.24 mmol/L Normal 1.08-1.30 [facility] Comment on above: Order Comment: Speci men Type: ARTERIAL BLOOD SPECIMENOrdering Facility: [facility] Address: [address] [place] [address] Performed By: #### A LLMG ####[facility] LABCLIA [id number] [place] [address] [place] Calcium.ionized adjusted to pH 7.4 (BldA) [Moles/Vol] 1.21 mmol/L Normal 1.08-1.30 [facility] Comment on above: Order Comment: Speci men Type: ARTERIAL BLOOD SPECIMENOrdering Facility: [facility] Address: [address] [place] [address] Performed By: #### A LLMG ####[facility] LABCLIA [id number] [place] [address] [place] Carboxyhemoglobin (BldA) [Mass fraction] 1.8 % Normal 0.0-2.0 [facility] Comment on above: Order Comment: Speci men Type: ARTERIAL BLOOD SPECIMENOrdering Facility: [facility] Address: [address] [place] [address] Result Comment: Carb oxyhemoglobin Reference Range for Smokers: 2.0-8.0% Performed By: #### A LLMG ####[facility] LABCLIA [id number] [place] [address] [place] CO2 (Bld) [Partial pressure] 42 mm Hg Normal 36-46 [facility] Comment on above: Order Comment: Speci men Type: ARTERIAL BLOOD SPECIMENOrdering Facility: [facility] Address: [address] [place] [address] Performed By: #### A LLMG ####[facility] LABCLIA [id number] [place] [address] [place] CO2 adjusted to patient's actual temperature (Bld) [Partial pressure] 42 mmHg Normal 36-46 [facility] Comment on above: Order Comment: Speci men Type: ARTERIAL BLOOD SPECIMENOrdering Facility: [facility] Address: [address] [place] [address] Performed By: #### A LLMG ####[facility] LABCLIA [id number] [place] [address] [place] Glucose [Mass/Vol] 131 mg/dL High 60-105 [facility] Comment on above: Order Comment: Speci men Type: ARTERIAL BLOOD SPECIMENOrdering Facility: [facility] Address: [address] [place] [address] Performed By: #### A LLMG ####[facility] LABCLIA [id number] [place] [address] [place] HCO3 (Bld) [Moles/Vol] 23 mmol/L Normal 22-26 [facility] Comment on above: Order Comment: Speci men Type: ARTERIAL BLOOD SPECIMENOrdering Facility: [facility] Address: [address] [place] [address] Performed By: #### A LLMG ####[facility] LABCLIA [id number] [place] [address] [place] Hematocrit (Bld) [Volume fraction] 39.4 % Normal 36.0-46.0 [facility] Comment on above: Order Comment: Speci men Type: ARTERIAL BLOOD SPECIMENOrdering Facility: [facility] Address: [address] [place] [address] Performed By: #### A LLMG ####[facility] LABCLIA [id number] [place] [address] [place] Hemoglobin (Bld) [Mass/Vol] 12.8 g/dL Normal 11.5-15.5 [facility] Comment on above: Order Comment: Speci men Type: ARTERIAL BLOOD SPECIMENOrdering Facility: [facility] Address: [address] [place] [address] Performed By: #### A LLMG ####[facility] LABIA [id number] [place] [address] [place] Lactate [Moles/Vol] 0.7 mmol/L Normal 0.5-2.2 [facility] Comment on above: Order Comment: Speci men Type: ARTERIAL BLOOD SPECIMENOrdering Facility: [facility] Address: [address] [place] [address] Performed By: #### A LLMG ####[facility] LABIA [id number] [place] [address] [place] Magnesium [Moles/Vol] 0.35 mmol/L Low 0.45-0.60 [facility] Comment on above: Order Comment: Speci men Type: ARTERIAL BLOOD SPECIMENOrdering Facility: [facility] Address: [address] [place] [address] Performed By: #### A LLMG ####[facility] LABIA [id number] [place] [address] [place] Methemoglobin (Bld) [Mass fraction] 0.5 % Normal 0.0-1.5 [facility] Comment on above: Order Comment: Speci men Type: ARTERIAL BLOOD SPECIMENOrdering Facility: [facility] Address: [address] [place] [address] Performed By: #### A LLMG ####[facility] LABIA [id number] [place] [address] [place] Oxygen (Bld) [Partial pressure] 319 mm Hg High 85-95 [facility] Comment on above: Order Comment: Speci men Type: ARTERIAL BLOOD SPECIMENOrdering Facility: [facility] Address: [address] [place] [address] Performed By: #### A LLMG ####[facility] LABCLIA [id number] [address] [address] [place] Oxygen adjusted to patient's actual temperature (Bld) [Partial pressure] 319 mmHg High 85-95 [facility] Comment on above: Order Comment: Speci men Type: ARTERIAL BLOOD SPECIMENOrdering Facility: [facility] Address: [address] [place] [address] Performed By: #### A LLMG ####[facility] LABCLIA [id number] [place] [address] [place] Oxyhemoglobin (BldA) [Mass fraction] 97 % Normal 95-98 [facility] Comment on above: Order Comment: Speci men Type: ARTERIAL BLOOD SPECIMENOrdering Facility: [facility] Address: [address] [place] [address] Performed By: #### A LLMG ####[facility] LABCLIA [id number] [place] [address] [place] pH (Bld) 7.36 [pH] Normal 7.35-7.45 [facility] Comment on above: Order Comment: Speci men Type: ARTERIAL BLOOD SPECIMENOrdering Facility: [facility] Address: [address] [place] [address] Performed By: #### A LLMG ####[facility] LABCLIA [id number] [place] [address] [place] pH adjusted to patient's actual temperature (Bld) 7.36 Normal 7.35-7.45 [facility] Comment on above: Order Comment: Speci men Type: ARTERIAL BLOOD SPECIMENOrdering Facility: [facility] Address: [address] [place] [address] Performed By: #### A LLMG ####[facility] LABIA [id number] [place] [address] [place] Potassium [Moles/Vol] 3.9 mmol/L Normal 3.5-5.0 [facility] Comment on above: Order Comment: Speci men Type: ARTERIAL BLOOD SPECIMENOrdering Facility: [facility] Address: [address] [place] [address] Performed By: #### A LLMG ####[facility] LABIA [id number] [place] [address] [place] Sodium [Moles/Vol] 136 mmol/L Normal 136-144 [facility] Comment on above: Order Comment: Speci men Type: ARTERIAL BLOOD SPECIMENOrdering Facility: [facility] Address: [address] [place] [address] Performed By: #### A LLMG ####[facility] LABIA [id number] [place] [address] [place] Base deficit (BldA) [Moles/Vol] -1 mmol/L Normal -2-0 [facility] Comment on above: Order Comment: Speci men Type: ARTERIAL BLOOD SPECIMENOrdering Facility: [facility] Address: [address] [place] [address] Performed By: #### A LLMG ####[facility] LABIA [id number] [place] [address] [place] Calcium.ionized (Bld) [Mass/Vol] 1.37 mmol/L High 1.08-1.30 [facility] Comment on above: Order Comment: Speci men Type: ARTERIAL BLOOD SPECIMENOrdering Facility: [facility] Address: [address] [place] [address] Performed By: #### A LLMG ####[facility] LABIA [id number] [place] [address] [place] Calcium.ionized adjusted to pH 7.4 (BldA) [Moles/Vol] 1.37 mmol/L High 1.08-1.30 [facility] Comment on above: Order Comment: Speci men Type: ARTERIAL BLOOD SPECIMENOrdering Facility: [facility] Address: [address] [place] [address] Performed By: #### A LLMG ####[facility] LABCLIA [id number] [place] [address] [place] Carboxyhemoglobin (BldA) [Mass fraction] 2.7 % High 0.0-2.0 [facility] Comment on above: Order Comment: Speci men Type: ARTERIAL BLOOD SPECIMENOrdering Facility: [facility] Address: [address] [place] [address] Result Comment: Carb oxyhemoglobin Reference Range for Smokers: 2.0-8.0% Performed By: #### A LLMG ####[facility] LABCLIA [id number] [place] [address] [place] CO2 (Bld) [Partial pressure] 37 mm Hg Normal 36-46 [facility] Comment on above: Order Comment: Speci men Type: ARTERIAL BLOOD SPECIMENOrdering Facility: [facility] Address: [address] [place] [address] Performed By: #### A LLMG ####[facility] LABCLIA [id number] [place] [address] [place] CO2 adjusted to patient's actual temperature (Bld) [Partial pressure] 37 mmHg Normal 36-46 [facility] Comment on above: Order Comment: Speci men Type: ARTERIAL BLOOD SPECIMENOrdering Facility: [facility] Address: [address] [place] [address] Performed By: #### A LLMG ####[facility] LABCLIA [id number] [place] [address] [place] Glucose [Mass/Vol] 113 mg/dL High 60-105 [facility] Comment on above: Order Comment: Speci men Type: ARTERIAL BLOOD SPECIMENOrdering Facility: [facility] Address: [address] [place] [address] Performed By: #### A LLMG ####[facility] LABCLIA [id number] [place] [address] [place] HCO3 (Bld) [Moles/Vol] 23 mmol/L Normal 22-26 [facility] Comment on above: Order Comment: Speci men Type: ARTERIAL BLOOD SPECIMENOrdering Facility: [facility] Address: [address] [place] [address] Performed By: #### A LLMG ####[facility] LABCLIA [id number] [place] [address] [place] Hematocrit (Bld) [Volume fraction] 45.7 % Normal 36.0-46.0 [facility] Comment on above: Order Comment: Speci men Type: ARTERIAL BLOOD SPECIMENOrdering Facility: [facility] Address: [address] [place] [address] Performed By: #### A LLMG ####[facility] LABCLIA [id number] [place] [address] [place] Hemoglobin (Bld) [Mass/Vol] 14.9 g/dL Normal 11.5-15.5 [facility] Comment on above: Order Comment: Speci men Type: ARTERIAL BLOOD SPECIMENOrdering Facility: [facility] Address: [address] [place] [address] Performed By: #### A LLMG ####[facility] LABCLIA [id number] [place] [address] [place] Lactate [Moles/Vol] 1.6 mmol/L Normal 0.5-2.2 [facility] Comment on above: Order Comment: Speci men Type: ARTERIAL BLOOD SPECIMENOrdering Facility: [facility] Address: [address] [place] [address] Performed By: #### A LLMG ####[facility] LABCLIA [id number] [place] [address] [place] Magnesium [Moles/Vol] 0.38 mmol/L Low 0.45-0.60 [facility] Comment on above: Order Comment: Speci men Type: ARTERIAL BLOOD SPECIMENOrdering Facility: [facility] Address: [address] [place] [address] Performed By: #### A LLMG ####[facility] LABCLIA [id number] [place] [address] [place] Methemoglobin (Bld) [Mass fraction] 0.5 % Normal 0.0-1.5 [facility] Comment on above: Order Comment: Speci men Type: ARTERIAL BLOOD SPECIMENOrdering Facility: [facility] Address: [address] [place] [address] Performed By: #### A LLMG ####[facility] LABCLIA [id number] [place] [address] [place] Oxygen (Bld) [Partial pressure] 97 mm Hg High 85-95 [facility] Comment on above: Order Comment: Speci men Type: ARTERIAL BLOOD SPECIMENOrdering Facility: [facility] Address: [address] [place] [address] Performed By: #### A LLMG ####[facility] LABCLIA [id number] [place] [address] [place] Oxygen adjusted to patient's actual temperature (Bld) [Partial pressure] 97 mmHg High 85-95 [facility] Comment on above: Order Comment: Speci men Type: ARTERIAL BLOOD SPECIMENOrdering Facility: [facility] Address: [address] [place] [address] Performed By: #### A LLMG ####[facility] LABCLIA [id number] [place] [id number] [place] Oxyhemoglobin (BldA) [Mass fraction] 95 % Normal 95-98 [facility] Comment on above: Order Comment: Speci men Type: ARTERIAL BLOOD SPECIMENOrdering Facility: [facility] Address: [address] [place] [address] Performed By: #### A LLMG ####[facility] LABCLIA [id number] [place] [address] [place] pH (Bld) 7.40 [pH] Normal 7.35-7.45 [facility] Comment on above: Order Comment: Speci men Type: ARTERIAL BLOOD SPECIMENOrdering Facility: [facility] Address: [address] [place] [address] Performed By: #### A LLMG ####[facility] LABCLIA [id number] [place] [address] [place] pH adjusted to patient's actual temperature (Bld) 7.40 Normal 7.35-7.45 [facility] Comment on above: Order Comment: Speci men Type: ARTERIAL BLOOD SPECIMENOrdering Facility: [facility] Address: [address] [place] [address] Performed By: #### A LLMG ####[facility] LABCLIA [id number] [place] [address] [place] Potassium [Moles/Vol] 3.9 mmol/L Normal 3.5-5.0 [facility] Comment on above: Order Comment: Speci men Type: ARTERIAL BLOOD SPECIMENOrdering Facility: [facility] Address: [address] [place] [address] Performed By: #### A LLMG ####[facility] LABCLIA [id number] [place] [address] [place] Sodium [Moles/Vol] 140 mmol/L Normal 136-144 [facility] Comment on above: Order Comment: Speci men Type: ARTERIAL BLOOD SPECIMENOrdering Facility: [facility] Address: [address] [place] [address] Performed By: #### A LLMG ####[facility] LABCLIA [id number] [place] [address] [place] BRIEF OP NOTon 05-27-2024 BRIEF OP NOT Normal [facility] CBC panel Auto (Bld)on 05-27 Erythrocyte distribution width (RBC) [Ratio] 15.8 % High 11.5-15.0 [facility] Comment on above: Order Comment: Speci men Type: BLOOD SPECIMENOrdering Facility: [facility] Address: [address] [place] [address] Performed By: #### 5 8410-2 ####[facility] [id number] [place] [address] [place] Hematocrit (Bld) [Volume fraction] 39.2 % Normal 36.0-46.0 [facility] Comment on above: Order Comment: Speci men Type: BLOOD SPECIMENOrdering Facility: [facility] Address: [address] [place] [address] Performed By: #### 5 8410-2 ####[facility] [id number] [place] [address] [place] Hemoglobin (Bld) [Mass/Vol] 13.4 g/dL Normal 11.5-15.5 [facility] Comment on above: Order Comment: Speci men Type: BLOOD SPECIMENOrdering Facility: [facility] Address: [address] [place] [address] Performed By: #### 5 8410-2 ####[facility] LABIA [id number] [place] [address] [place] MCH (RBC) [Entitic mass] 30.3 pg Normal 26.0-34.0 [facility] Comment on above: Order Comment: Speci men Type: BLOOD SPECIMENOrdering Facility: [facility] Address: [address] [place] [address] Performed By: #### 5 8410-2 ####[facility] LABIA [id number] [place] [address] [place] MCHC (RBC) [Mass/Vol] 34.2 g/dL Normal 30.5-36.0 [facility] Comment on above: Order Comment: Speci men Type: BLOOD SPECIMENOrdering Facility: [facility] Address: [address] [place] [address] Performed By: #### 5 8410-2 ####[facility] LABCLIA [id number] [place] [address] [place] MCV (RBC) [Entitic vol] 88.7 fL Normal 80.0-100.0 C [facility] Comment on above: Order Comment: Speci men Type: BLOOD SPECIMENOrdering Facility: [facility] Address: [address] [place] [address] Performed By: #### 5 8410-2 ####[facility] LABIA [id number] [place] [address] [place] Nucleated RBC (Bld) [#/Vol] 10*3/uL Normal <0.01 [facility] Comment on above: Order Comment: Speci men Type: BLOOD SPECIMENOrdering Facility: [facility] Address: [address] [place] [address] Performed By: #### 5 8410-2 ####[facility] LABIA [id number] [place] [address] [place] Platelet mean volume (Bld) [Entitic vol] 9.7 fL Normal 9.0-12.7 [facility] Comment on above: Order Comment: Speci men Type: BLOOD SPECIMENOrdering Facility: [facility] Address: [address] [place] [address] Performed By: #### 5 8410-2 ####[facility] LABCLIA [id number] [place] [address] [place] Platelets (Bld) [#/Vol] 138 10*3/uL Low 150-400 [facility] Comment on above: Order Comment: Speci men Type: BLOOD SPECIMENOrdering Facility: [facility] Address: [address] [place] [address] Performed By: #### 5 8410-2 ####[facility] LABCLIA [id number] [address] [address] [place] RBC (Bld) [#/Vol] 4.42 10*6/uL Normal 3.90-5.20 [facility] Comment on above: Order Comment: Speci men Type: BLOOD SPECIMENOrdering Facility: [facility] Address: [address] [place] [address] Performed By: #### 5 8410-2 ####[facility] LABCLIA [id number] [place] [id number] [place] WBC (Bld) [#/Vol] 10.88 10*3/uL Normal 3.70-11.00 [facility] Comment on above: Order Comment: Speci men Type: BLOOD SPECIMENOrdering Facility: [facility] Address: [address] [place] [address] Performed By: #### 5 8410-2 ####[facility] LABCLIA [id number] [place] [id number] [place] Comprehensive metabolic 2000 panelon 05-27-2024 Albumin [Mass/Vol] 3.8 g/dL Low 3.9-4.9 [facility] Comment on above: Order Comment: Speci men Type: BLOOD SPECIMENOrdering Facility: [facility] Address: [address] [place] [address] Performed By: #### 2 4323-8, 2777-1, 39789-3 ####[facility] LABCLIA [id number] [place] [address] [place] ALP [Catalytic activity/Vol] 36 U/L Normal 34-123 [facility] Comment on above: Order Comment: Speci men Type: BLOOD SPECIMENOrdering Facility: [facility] Address: [address] [place] [address] Performed By: #### 2 4323-8, 2777-1, 39506-0 ####[facility] LABIA [id number] [place] [address] [place] ALT [Catalytic activity/Vol] 12 U/L Normal 7-38 [facility] Comment on above: Order Comment: Speci men Type: BLOOD SPECIMENOrdering Facility: [facility] Address: [address] [place] [address] Performed By: #### 2 4323-8, 2777-1, ####[facility] LABIA [id number] [place] [address] [place] Anion gap [Moles/Vol] 13 mmol/L Normal 8-15 [facility] Comment on above: Order Comment: Speci men Type: BLOOD SPECIMENOrdering Facility: [facility] Address: [address] [place] [address] Performed By: #### 2 4323-8, 27771, ####[facility] LABIA [id number] [place] [address] [place] AST [Catalytic activity/Vol] 23 U/L Normal 13-35 [facility] Comment on above: Order Comment: Speci men Type: BLOOD SPECIMENOrdering Facility: [facility] Address: [address] [place] [address] Result Comment: Resu lts may be falsely increased due to interference from hemolysis. Suggest reorder as clinically indicated. Performed By: #### 2 4323-8, 2777-1, 48218-5 ####[facility] LABIA [id number] [place] [address] [place] Bilirubin [Mass/Vol] 2.1 mg/dL High 0.2-1.3 [facility] Comment on above: Order Comment: Speci men Type: BLOOD SPECIMENOrdering Facility: [facility] Address: [address] [place] [address] Performed By: #### 2 4323-8, 27712-23, ####[facility] LABCLIA [id number] [address] [address] [place] Calcium [Mass/Vol] 9.7 mg/dL Normal 8.5-10.2 [facility] Comment on above: Order Comment: Speci men Type: BLOOD SPECIMENOrdering Facility: [facility] Address: [address] [place], [place] [address] Performed By: #### 2 4323-8, 27712-23, ####[facility] LABCLIA [id number] [place] [address] [place] Chloride [Moles/Vol] 106 mmol/L Normal 98-107 [facility] Comment on above: Order Comment: Speci men Type: BLOOD SPECIMENOrdering Facility: [facility] Address: [address] [place], [place] [address] Performed By: #### 2 4323-8, 2776-06, ####[facility] LABCLIA [id number] [place] [address] [place] CO2 [Moles/Vol] 26 mmol/L Normal 22-30 [facility] Comment on above: Order Comment: Speci men Type: BLOOD SPECIMENOrdering Facility: [facility] Address: [address] [place] [address] Performed By: #### 2 4323-8, 2776-06, ####[facility] LABCLIA [id number] [address] [address] [place] Creatinine [Mass/Vol] 0.80 mg/dL Normal 0.58-0.96 [facility] Comment on above: Order Comment: Speci men Type: BLOOD SPECIMENOrdering Facility: [facility] Address: [address] [place] [address] Performed By: #### 2 4323-8, 2777-1, ####[facility] LABIA [id number] [place] [id number] [place] Creatinine and Glomerular filtration rate.predicted panel (S/P/Bld) 79 mL/min/1.73m??? Normal >=60 [facility] Comment on above: Order Comment: Karen estes Type: BLOOD SPECIMENOrdering Facility: [facility] Address: [address] [place] [address] Result Comment: Carlyn mated Glomerular Filtration Rate (eGFR) is calculated using the 2020 CKD-EPI creatinine equation. This equation utilizes serum creatinine, sex, and age as parameters. The creatinine assay has traceable calibration to isotope dilution-mass spectrometry. Refer to KDIGO guidelines for clinical interpretation. In patients with unstable renal function, e.g. those with acute kidney injury, the eGFR may not accurately reflect actual GFR. Performed By: #### 2 4323-8, 2777-, ####[facility] LABIA [id number] [place] [id number] [place] Glucose [Mass/Vol] 177 mg/dL High 74-99 [facility] Comment on above: Order Comment: Karen estes Type: BLOOD SPECIMENOrdering Facility: [facility] Address: [address] [place] [address] Result Comment: The [place] [employer] (ADA) provides guidance for cutoff values for fasting glucose and random glucose. The ADA defines fasting as no caloric intake for at least 8 hours. Fasting plasma glucose results between 100 to 125 mg/dL indicate increased risk for diabetes (prediabetes).Fasting plasma glucose results greater than or equal to 126 mg/dL meet the criteria for diagnosis of diabetes. In the absence of unequivocal hyperglycemia, results should be confirmed by repeat testing. In a patient with classic symptoms of hyperglycemia or hyperglycemic crisis, random plasma glucose results greater than or equal to 200 mg/dL meet the criteria for diagnosis of diabetes.Reference: Standards of Medical Care in Diabetes 2016, [place] [employer]. Diabetes Care. 2016.39(Suppl 1). Performed By: #### 2 4323-8, 27712-23, ####[facility] LABCLIA [id number] [address] [address] [place] Potassium [Moles/Vol] 3.6 mmol/L Low 3.7-5.1 [facility] Comment on above: Order Comment: Speci men Type: BLOOD SPECIMENOrdering Facility: [facility] Address: [address] [place] [address] Performed By: #### 2 4323-8, 2776-06, ####[facility] LABCLIA [id number] [place] [id number] [place] Protein [Mass/Vol] 5.5 g/dL Low 6.3-8.0 [facility] Comment on above: Order Comment: Speci men Type: BLOOD SPECIMENOrdering Facility: [facility] Address: [address] [place] [address] Performed By: #### 2 4323-8, 2776-06, ####[facility] LABCLIA [id number] [place] [address] [place] Sodium [Moles/Vol] 145 mmol/L High 136-144 [facility] Comment on above: Order Comment: Speci men Type: BLOOD SPECIMENOrdering Facility: [facility] Address: [address] [place] [address] Performed By: #### 2 4323-8, 2776-06, ####[facility] LABCLIA [id number] [address] [address] [place] Urea nitrogen [Mass/Vol] 12 mg/dL Normal 7-21 [facility] Comment on above: Order Comment: Speci men Type: BLOOD SPECIMENOrdering Facility: [facility] Address: [address] [place] [address] Performed By: #### 2 4323-8, 2776-06, ####[facility] LABCLIA [id number] [address] [address] [place] Fibrinogen PPP-mCncon 2023 Fibrinogen Coag (PPP) [Mass/Vol] 404 mg/dL High 200-400 [facility] Comment on above: Order Comment: Speci men Type: BLOOD SPECIMENOrdering Facility: [facility] Address: [address] [place] [address] Performed By: #### 1 4979-9, 3255-7, 87817-8 ####[facility] LABCLIA [id number] [place] [address] [place] Fibrinogen Coag (PPP) [Mass/Vol] 404 mg/dL High 200-400 [facility] Comment on above: Order Comment: Speci men Type: BLOOD SPECIMENOrdering Facility: [facility] Address: [address] [place] [address] Performed By: #### 1 4979-9, 39268-4, 3255-7 ####[facility] LABIA [id number] [place] [address] [place] Fibrinogen Coag (PPP) [Mass/Vol] 258 mg/dL Normal 200-400 [facility] Comment on above: Order Comment: Speci men Type: BLOOD SPECIMENOrdering Facility: [facility] Address: [address] [place] [address] Performed By: #### 3 255-7 ####[facility] LABIA [id number] [place] [id number] [place] Fibrinogen Coag (PPP) [Mass/Vol] 170 mg/dL Low 200-400 [facility] Comment on above: Order Comment: Speci men Type: BLOOD SPECIMENOrdering Facility: [facility] Address: [address] [place] [address] Performed By: #### 3 255-7 ####[facility] LABIA [id number] [address] [place] GLOBAL HEMOSTASISon 05-27-20 24 CITRATED FUNCTIONAL FIBRINOGEN LEVEL 326.6 mg/dL Normal 278.0-581.0 [facility] Comment on above: Order Comment: Speci men Type: BLOOD SPECIMENOrdering Facility: [facility] Address: [address] [place] [address] Performed By: #### T EGGLBL ####[facility] LABCLIA [id number] [place] [address] [place] Clot angle TEG (Bld) [Angle] 70.7 degrees Normal 63.0-78.0 [facility] Comment on above: Order Comment: Speci men Type: BLOOD SPECIMENOrdering Facility: [facility] Address: [address] [place] [address] Performed By: #### T EGGLBL ####[facility] LABCLIA [id number] [address] [place] Clot formation TEG (Bld) [Time] 1.6 minutes Normal 0.8-2.1 [facility] Comment on above: Order Comment: Speci men Type: BLOOD SPECIMENOrdering Facility: [facility] Address: [address] [place] [address] Performed By: #### T EGGLBL ####[facility] LABCLIA [id number] [place] [address] [place] Clotting time after addition of heparinase TEG (Bld) 5.6 minutes Normal 4.3-8.3 [facility] Comment on above: Order Comment: Speci men Type: BLOOD SPECIMENOrdering Facility: [facility] Address: [address] [place] [address] Performed By: #### T EGGLBL ####[facility] LABCLIA [id number] [place] [address] [place] Clotting time.extrinsic coagulation system activated Rotational TEG (Bld) 5.7 minutes Normal 4.6-9.1 [facility] Comment on above: Order Comment: Speci franklyn Type: BLOOD SPECIMENOrdering Facility: [facility] Address: [address] [place] [address] Performed By: #### T EGGLBL ####[facility] LABIA [id number] [address] [place] Maximum clot firmness TEG (Bld) [Length] 57.8 mm Normal 52.0-69.0 [facility] Comment on above: Order Comment: Karen franklyn Type: BLOOD SPECIMENOrdering Facility: [facility] Address: [address] [place] [address] Performed By: #### T EGGLBL ####[facility] [id number] [address] [place] Maximum clot firmness.extrinsic coagulation system activated.platelets inhibited Rotational TEG (Bld) [Length] 54.6 mm Normal 52.0-70.0 [facility] Comment on above: Order Comment: Karen franklyn Type: BLOOD SPECIMENOrdering Facility: [facility] Address: [address] [place] [address] Result Comment: 17.9 Performed By: #### T EGGLBL ####[facility] [id number] [place] [address] [place] THROMBOGRAPH INTERP Normal [facility] Comment on above: Order Comment: Ana Cristinaradha estes Type: BLOOD SPECIMENOrdering Facility: [facility] Address: [address] [place] [address] Result Comment: A th romboelastograph (TEG) study was performed using citrate-anticoagulated whole blood treated with and without heparinase to neutralize a heparin effect. The R value, a measure of coagulation function, is within the normal range. This indicates normal coagulation function. The K time (K), a measure of time to clot formation is normal. This is indicative of normal fibrinogen and platelet function. The angle, a measure of fibrinogen function, is within normal range. This is indicative of normal fibrinogen concentration or function. The Maximal Amplitude (MA), a measure of platelet function, is within the normal range. The fibrinogen contribution clot formation is normal.Viscoelastic testing is not intended for the monitoring of anticoagulation or antiplatelet medications or the diagnosis and/or management of platelet disorders and/or coagulopathies but may be useful for guiding blood product utilization in emergency and urgent (OR) circumstances when routine coagulation and cell blood counts are not available in a timely manner. Performed By: #### T EGGLBL ####[facility] LABIA [id number] [place] [address] [place] Hematocrit Auto (Bld) [Volum e fraction]on 05-27-2024 Hematocrit (Bld) [Volume fraction] 40.2 % Normal 36.0-46.0 [facility] Comment on above: Order Comment: Karen estes Type: BLOOD SPECIMENOrdering Facility: [facility] Address: [address] [place] [address] Performed By: #### 4 544-3, 777-3, 718-7 ####[facility] LABIA [id number] [place] [address] [place] Hgb Bld-mCncon 05-27-2024 Hemoglobin (Bld) [Mass/Vol] 13.9 g/dL Normal 11.5-15.5 [facility] Comment on above: Order Comment: Karen estes Type: BLOOD SPECIMENOrdering Facility: [facility] Address: [address] [place] [address] Performed By: #### 4 544-3, 777-3, 718-7 ####[facility] [id number] [place] [address] [place] Magnesium SerPl-mCncon 05-27 Magnesium [Mass/Vol] 2.7 mg/dL High 1.7-2.3 [facility] Comment on above: Order Comment: Karen estes Type: BLOOD SPECIMENOrdering Facility: [facility] Address: [address] [place] [address] Performed By: #### 2 4323-8, 2777-1, 54226-2 ####[facility] LABCLIA [id number] [place] [id number] [place] OPERATIVE NOon 05-27-2024 OPERATIVE NO Normal [facility] PT panel Coag (PPP)on 2023 INR Coag (PPP) [Relative time] 1.1 {INR} Normal 0.9-1.3 [facility] Comment on above: Order Comment: Speci men Type: BLOOD SPECIMENOrdering Facility: [facility] Address: [address] [place] [address] Result Comment: Hermila min K Antagonist (VKA) Therapeutic Range: INR 2 to 3 (Target INR of 2.5)Note: For patients treated with VKA drugs, such as warfarin, the [place] [employer] 2012 Guideline recommends a therapeutic INR range of 2 to 3 (target INR of 2.5). This recommendation includes high-risk patients with antiphospholipid syndrome with previous arterial or venous thromboembolism, current-generation mechanical or bioprosthetic aortic heart valve replacement.Note: Patients with mechanical aortic valve replacement and additional risk factors for thromboembolic events (atrial fibrillation, previous thromboembolism, LV dysfunction, hypercoagulable conditions) or an older generation mechanical AVR (i.e., ball in-Cage) or any mechanical MVR should have a INR therapeutic range of 2.5 to 3.5 (target INR of 3).Gabriella ARAYA, et al. Chest 2012, 141:7S-47SNishbernardo RA, et al. [facility] 2017, 70: 252-289 Performed By: #### 1 4979-9, 3255-7, 76496-8 ####[facility] LABCLIA [id number] [facility] [address] [address] [place] PT Coag (PPP) [Time] 12.1 s Normal 9.7-13.0 [facility] Comment on above: Order Comment: Speci men Type: BLOOD SPECIMENOrdering Facility: [facility] Address: [address] [place] [address] Performed By: #### 1 4979-9, 3255-7, 74813-3 ####[facility] LABCLIA [id number] [place] [address] [place] INR Coag (PPP) [Relative time] 1.2 {INR} Normal 0.9-1.3 [facility] Comment on above: Order Comment: Speci men Type: BLOOD SPECIMENOrdering Facility: [facility] Address: [address] [place] [address] Result Comment: Hermila min K Antagonist (VKA) Therapeutic Range: INR 2 to 3 (Target INR of 2.5)Note: For patients treated with VKA drugs, such as warfarin, the [place] [employer] 2012 Guideline recommends a therapeutic INR range of 2 to 3 (target INR of 2.5). This recommendation includes high-risk patients with antiphospholipid syndrome with previous arterial or venous thromboembolism, current-generation mechanical or bioprosthetic aortic heart valve replacement.Note: Patients with mechanical aortic valve replacement and additional risk factors for thromboembolic events (atrial fibrillation, previous thromboembolism, LV dysfunction, hypercoagulable conditions) or an older generation mechanical AVR (i.e., ball in-Cage) or any mechanical MVR should have a INR therapeutic range of 2.5 to 3.5 (target INR of 3).Yoandytt GH, et al. Chest 2012, 141:7S-47SNishimura RA, et al. [facility] 2017, 70: 252-289 Performed By: #### 1 4979-9, 18185-2, 3255-7 ####[facility] LABIA [id number] [place] [id number] [place] PT Coag (PPP) [Time] 12.5 s Normal 9.7-13.0 [facility] Comment on above: Order Comment: Speci men Type: BLOOD SPECIMENOrdering Facility: [facility] Address: [address] [place] [address] Performed By: #### 1 4979-9, 87731-2, 3255-7 ####[facility] LABIA [id number] [place] [address] [place] Phosphate SerPl-mCncon 05-27 Phosphate [Mass/Vol] 4.2 mg/dL Normal 2.7-4.8 [facility] Comment on above: Order Comment: Speci men Type: BLOOD SPECIMENOrdering Facility: [facility] Address: [address] [place] [address] Performed By: #### 2 4323-8, 2777-1, 21057-5 ####[facility] LABCLIA [id number] [place] [address] [place] Platelets Auto (Bld) [#/Vol] on 05-27-2024 Platelets (Bld) [#/Vol] 143 10*3/uL Low 150-400 [facility] Comment on above: Order Comment: Speci men Type: BLOOD SPECIMENOrdering Facility: [facility] Address: [address] [place] [address] Performed By: #### 4 544-3, 777-3, 718-7 ####[facility] LABCLIA [id number] [place] [address] [place] Platelets (Bld) [#/Vol] 116 10*3/uL Low 150-400 [facility] Comment on above: Order Comment: Speci men Type: BLOOD SPECIMENOrdering Facility: [facility] Address: [address] [place] [address] Performed By: #### 7 77-3 ####[facility] LABCLIA [id number] [place] [address] [place] Platelets (Bld) [#/Vol] 107 10*3/uL Low 150-400 [facility] Comment on above: Order Comment: Speci men Type: BLOOD SPECIMENOrdering Facility: [facility] Address: [address] [place] [address] Performed By: #### 7 77-3 ####[facility] LABCLIA [id number] [place] [address] [place] STAPHYLOCOCCUS AUREUS AND MR SA SCREEN, PCR, NASALon 05-27-2024 S. aureus and MRSA panel JORDAN+probe (Nose) Not detected Normal Not Detected [facility] Comment on above: Order Comment: Speci men Type: SWABOrdering Facility: [facility] Address: [address] [place] [address] Performed By: #### S APCR ####[facility] LABCLIA [id number] [address] OF [facility] SURGICAL PATHOLOGYon 024 CASE REPORT Normal [facility] Comment on above: Order Comment: Speci men Type: TISSUE SPECIMENOrdering Facility: [facility] Address: [address] [place] [address] Result Comment: Surg ical Pathology Report Case: [id number] Provider: Yobani Lester MD Collected: 05/27/2024 10:30 AMOrdering Location: Admitting Received: 05/27/2024 02:13 PMPathologist: Lakia Causey MDSpecimens: A) - Aorta, Aortic Contents, Aortic Contents B) - Rib, Left, left rib Performed By: #### S ####[facility] LABIA [id number] [address] [place] CLINICAL HISTORY Normal [facility] Comment on above: Order Comment: Speci men Type: TISSUE SPECIMENOrdering Facility: [facility] Address: [address] [place] [address] Result Comment: 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]Encounter for screening for cardiovascular disorders [Z13.6]Preop testing [Z01.818] Performed By: #### S ####[facility] LABCLIA [id number] [address] [place] DIAGNOSIS COMMENT Normal [facility] Comment on above: Order Comment: Speci men Type: TISSUE SPECIMENOrdering Facility: [facility] Address: [address] [place] [address] Performed By: #### S ####[facility] LABCLIA [id number] [address] [place] FINAL DIAGNOSIS Normal [facility] Comment on above: Order Comment: Speci men Type: TISSUE SPECIMENOrdering Facility: [facility] Address: [address] [place] [address] Result Comment: A. A ortic contents, removal:- Elastic type artery with severe atherosclerosis and thrombus material.B. Left rib, excision:- Segment of rib without gross abnormality (gross examination only).SW/AIMEE May 28, 2024 Performed By: #### S ####[facility] LABCLIA [id number] [address] STATES OF [facility] FINAL PERFORMING LAB Normal [facility] Comment on above: Order Comment: Speci men Type: TISSUE SPECIMENOrdering Facility: [facility] Address: [address] [place] [address] Result Comment: Diag nostic interpretation performed at [facility], [address] [place] [address] CLIA# [id number] Director: Maikel Duarte M.D. Performed By: #### S ####[facility] LABCLIA [id number] [address] [place] GROSS DESCRIPTION Normal [facility] Comment on above: Order Comment: Ana Cristinai men Type: TISSUE SPECIMENOrdering Facility: [facility] Address: [address] [place] [address] Result Comment: A. A doretha, Aortic ContentsReceived in formalin, labeled aortic contents are multiple causey-brown, friable segments of thrombotic material and plaque measuring 9 x 9 x 4.5 cm in aggregate. Sectioning reveals laminated cut surfaces. Sodium Methylate Operator sections are submitted in A1 following light formic decalcification.B. Rib, LeftReceived in formalin labeled left rib is an excision of firm red bone measuring 9.8 x 2.5 x 1.8 cm. There are no areas of softening. There are no discrete masses or lesions. No sections are submitted. The specimen is reviewed with Dr. Garland.AIMEE May 28, 2024 8:18 AMGross examination performed at [facility], [address] [place] [address] Performed By: #### S ####[facility] LABCLIA [id number] [place] [address] [place] THROMBOGRAPH HEPARINASE PANE [place] 05-27-2024 Clot angle after addition of heparinase TEG (Bld) [Angle] 64.6 degrees Normal 47.0-74.0 [facility] Comment on above: Order Comment: Speci men Type: BLOOD SPECIMENOrdering Facility: [facility] Address: [address] [place] [address] Performed By: #### T EGHPP ####[facility] LABIA [id number] [place] [address] [place] Clot Lysis 30 Min post maximum clot amplitude TEG (Bld) [Length fraction] 0.0 % Normal 0.0-8.0 [facility] Comment on above: Order Comment: Speci men Type: BLOOD SPECIMENOrdering Facility: [facility] Address: [address] [place] [address] Performed By: #### T EGHPP ####[facility] LABIA [id number] [place] [address] [place] Clotting time after addition of heparinase TEG (Bld) 7.2 minutes Normal 4.0-10.0 [facility] Comment on above: Order Comment: Speci men Type: BLOOD SPECIMENOrdering Facility: [facility] Address: [address] [place] [address] Performed By: #### T EGHPP ####[facility] LABCLIA [id number] [place] [address] [place] Coagulation index TEG Qn (Bld) -1.1 Normal -4.6-3.2 [facility] Comment on above: Order Comment: Karen estes Type: BLOOD SPECIMENOrdering Facility: [facility] Address: [address] [place] [address] Result Comment: This test was developed, and its performance characteristics determined by the [facility] Department of Pathology and Laboratory Medicine. It has not been cleared or approved by the FDA. The [facility] Department of Pathology and Laboratory Medicine is regulated under CLIA as qualified to perform high-complexity testing. This test is used for clinical purposes. It should not be regarded as investigational or for research. Performed By: #### T EGHPP ####[facility] LABCLIA [id number] [facility] [place] [address] [place] Maximum clot firmness after addition of heparinase TEG (Bld) [Length] 58.8 mm Normal 51.0-75.0 [facility] Comment on above: Order Comment: Karen estes Type: BLOOD SPECIMENOrdering Facility: [facility] Address: [address] [place] [address] Performed By: #### T EGHPP ####[facility] LABCLIA [id number] [facility] [place] [address] [place] Thromboelastography after addtion of heparinase panel (Bld) Normal [facility] Comment on above: Order Comment: Karen estes Type: BLOOD SPECIMENOrdering Facility: [facility] Address: [address] [place] [address] Result Comment: A th romboelastograph (TEG) study was performed using a citrate-anticoagulated whole blood treated with heparinase to neutralize a heparin effect.The R value decreased to between 4.0 and 10.0 minutes after sample treatment with heparinase. This is consistent with heparin therapy with adequate residual hemostasis. The angle, a measure of fibrinogen function, is within normal range. This is indicative of normal fibrinogen concentration or function. The Maximal Amplitude (MA), a measure of platelet function, is within the normal range. The Ly30, a measure of fibrinolysis, is normal. This is indicative of normal fibrinolytic function. The coagulation index (CI), a measure of hemostasis function, is within the normal range. The CI is a calculated parameter based on the other TEG results.Viscoelastic testing is not intended for the monitoring of anticoagulation or antiplatelet medications or the diagnosis and/or management of platelet disorders and/or coagulopathies but may be useful for guiding blood product utilization in emergency and urgent (OR) circumstances when routine coagulation and cell blood counts are not available in a timely manner. Performed By: #### T EGHPP ####[facility] LABIA [id number] [place] [address] [place] XR CHEST 1V FRONTAL PORTon 1 07-28-2023 XR CHEST 1V FRONTAL PORT Normal [facility] aPTT PPPon 05-27-2024 aPTT Coag (PPP) [Time] 28.5 s Normal 23.0-32.4 [facility] Comment on above: Order Comment: Speci men Type: BLOOD SPECIMENOrdering Facility: [facility] Address: [address] [place] [address] Performed By: #### 1 4979-9, 3255-7, 31943-2 ####[facility] LABIA [id number] [place] [address] [place] aPTT Coag (PPP) [Time] 30.2 s Normal 23.0-32.4 [facility] Comment on above: Order Comment: Speci men Type: BLOOD SPECIMENOrdering Facility: [facility] Address: [address] [place] [address] Performed By: #### 1 4979-9, 70548-0, 325-7 ####[facility] LABIA [id number] [place] [id number] [place] CNPNon 05-26-2024 CNPN Normal [facility] Basic metabolic 2000 panelon 05-05-2024 Anion gap [Moles/Vol] 13 mmol/L Normal 8-15 [facility] Comment on above: Order Comment: Speci men Type: BLOOD SPECIMENOrdering Facility: [facility] Address: [address] [place] [address] Performed By: #### 2 4321-2 ####[facility] LABCLIA [id number] [facility] [address] [address] [place] Calcium [Mass/Vol] 10.0 mg/dL Normal 8.5-10.2 [facility] Comment on above: Order Comment: Speci men Type: BLOOD SPECIMENOrdering Facility: [facility] Address: [address] [place] [address] Performed By: #### 2 4321-2 ####[facility] LABCLIA [id number] [place] [address] [place] Chloride [Moles/Vol] 102 mmol/L Normal 98-107 [facility] Comment on above: Order Comment: Speci men Type: BLOOD SPECIMENOrdering Facility: [facility] Address: [address] [place] [address] Performed By: #### 2 4321-2 ####[facility] LABCLIA [id number] [place] [address] [place] CO2 [Moles/Vol] 25 mmol/L Normal 22-30 [facility] Comment on above: Order Comment: Speci men Type: BLOOD SPECIMENOrdering Facility: [facility] Address: [address] [place] [address] Performed By: #### 2 4321-2 ####[facility] LABCLIA [id number] [place] [address] [place] Creatinine [Mass/Vol] 0.85 mg/dL Normal 0.58-0.96 [facility] Comment on above: Order Comment: Speci men Type: BLOOD SPECIMENOrdering Facility: [facility] Address: [address] [place] [address] Performed By: #### 2 4321-2 ####[facility] LABCLIA [id number] [place] [address] [place] Creatinine and Glomerular filtration rate.predicted panel (S/P/Bld) 73 mL/min/1.73m??? Normal >=60 [facility] Comment on above: Order Comment: Karen estes Type: BLOOD SPECIMENOrdering Facility: [facility] Address: [address] [place] [address] Result Comment: Carlyn mated Glomerular Filtration Rate (eGFR) is calculated using the 2020 CKD-EPI creatinine equation. This equation utilizes serum creatinine, sex, and age as parameters. The creatinine assay has traceable calibration to isotope dilution-mass spectrometry. Refer to KDIGO guidelines for clinical interpretation. In patients with unstable renal function, e.g. those with acute kidney injury, the eGFR may not accurately reflect actual GFR. Performed By: #### 2 4321-2 ####[facility] LABIA [id number] [place] [address] [place] Glucose [Mass/Vol] 100 mg/dL High 74-99 [facility] Comment on above: Order Comment: Karen estes Type: BLOOD SPECIMENOrdering Facility: [facility] Address: [address] [place] [address] Result Comment: The [place] [employer] (ADA) provides guidance for cutoff values for fasting glucose and random glucose. The ADA defines fasting as no caloric intake for at least 8 hours. Fasting plasma glucose results between 100 to 125 mg/dL indicate increased risk for diabetes (prediabetes).Fasting plasma glucose results greater than or equal to 126 mg/dL meet the criteria for diagnosis of diabetes. In the absence of unequivocal hyperglycemia, results should be confirmed by repeat testing. In a patient with classic symptoms of hyperglycemia or hyperglycemic crisis, random plasma glucose results greater than or equal to 200 mg/dL meet the criteria for diagnosis of diabetes.Reference: Standards of Medical Care in Diabetes 2016, [place] [employer]. Diabetes Care. 2016.39(Suppl 1). Performed By: #### 2 4321-2 ####[facility] [id number] [place] [address] [place] Potassium [Moles/Vol] 3.3 mmol/L Low 3.7-5.1 [facility] Comment on above: Order Comment: Karen estes Type: BLOOD SPECIMENOrdering Facility: [facility] Address: [address] [place] [address] Performed By: #### 2 4321-2 ####[facility] LABCLIA [id number] [place] [address] [place] Sodium [Moles/Vol] 140 mmol/L Normal 136-144 [facility] Comment on above: Order Comment: Speci men Type: BLOOD SPECIMENOrdering Facility: [facility] Address: [address] [place] [address] Performed By: #### 2 4321-2 ####[facility] LABIA [id number] [place] [address] [place] Urea nitrogen [Mass/Vol] 11 mg/dL Normal 7-21 [facility] Comment on above: Order Comment: Speci men Type: BLOOD SPECIMENOrdering Facility: [facility] Address: [address] [place] [address] Performed By: #### 2 4321-2 ####[facility] LABIA [id number] [place] [address] [place] CBC W Auto Differential pane l (Bld)on 05-05-2024 Basophils (Bld) [#/Vol] 0.03 10*3/uL Normal <0.11 [facility] Comment on above: Order Comment: Speci men Type: BLOOD SPECIMENOrdering Facility: [facility] Address: [address] [place] [address] Performed By: #### 5 7021-8 ####[facility] LABCLIA [id number] [place] [address] [place] Basophils/100 WBC (Bld) 0.4 % Normal C [facility] Comment on above: Order Comment: Speci men Type: BLOOD SPECIMENOrdering Facility: [facility] Address: [address] [place] [address] Performed By: #### 5 7021-8 ####[facility] LABCLIA [id number] [place] [address] [place] Differential cell count method Nom (Bld) Auto Normal [facility] Comment on above: Order Comment: Speci men Type: BLOOD SPECIMENOrdering Facility: [facility] Address: [address] [place] [address] Performed By: #### 5 7021-8 ####[facility] LABCLIA [id number] [place] [address] [place] Eosinophils (Bld) [#/Vol] 0.11 10*3/uL Normal <0.46 [facility] Comment on above: Order Comment: Speci men Type: BLOOD SPECIMENOrdering Facility: [facility] Address: [address] [place] [address] Performed By: #### 5 7021-8 ####[facility] LABCLIA [id number] [place] [address] [place] Eosinophils/100 WBC (Bld) 1.4 % Normal [facility] Comment on above: Order Comment: Speci men Type: BLOOD SPECIMENOrdering Facility: [facility] Address: [address] [place] [address] Performed By: #### 5 7021-8 ####[facility] LABCLIA [id number] [place] [address] [place] Erythrocyte distribution width (RBC) [Ratio] 15.2 % High 11.5-15.0 [facility] Comment on above: Order Comment: Speci men Type: BLOOD SPECIMENOrdering Facility: [facility] Address: [address] [place] [address] Performed By: #### 5 7021-8 ####[facility] LABCLIA [id number] [place] [address] [place] Hematocrit (Bld) [Volume fraction] 50.7 % High 36.0-46.0 [facility] Comment on above: Order Comment: Speci men Type: BLOOD SPECIMENOrdering Facility: [facility] Address: [address] [place] [address] Performed By: #### 5 7021-8 ####[facility] LABCLIA [id number] [place] [address] [place] Hemoglobin (Bld) [Mass/Vol] 16.5 g/dL High 11.5-15.5 [facility] Comment on above: Order Comment: Speci men Type: BLOOD SPECIMENOrdering Facility: [facility] Address: [address] [place] [address] Performed By: #### 5 7021-8 ####[facility] LABCLIA [id number] [place] [address] [place] Immature granulocytes (Bld) [#/Vol] 0.04 10*3/uL Normal <0.10 [facility] Comment on above: Order Comment: Speci men Type: BLOOD SPECIMENOrdering Facility: [facility] Address: [address] [place] [address] Performed By: #### 5 7021-8 ####[facility] LABCLIA [id number] [place] [address] [place] Immature granulocytes/100 WBC (Bld) 0.5 % Normal [facility] Comment on above: Order Comment: Speci men Type: BLOOD SPECIMENOrdering Facility: [facility] Address: [address] [place] [address] Performed By: #### 5 7021-8 ####[facility] LABCLIA [id number] [place] [address] [place] Lymphocytes (Bld) [#/Vol] 1.27 10*3/uL Normal 1.00-4.00 [facility] Comment on above: Order Comment: Speci men Type: BLOOD SPECIMENOrdering Facility: [facility] Address: [address] [place] [address] Performed By: #### 5 7021-8 ####[facility] LABCLIA [id number] [place] [address] [place] Lymphocytes/100 WBC (Bld) 16.3 % Normal [facility] Comment on above: Order Comment: Speci men Type: BLOOD SPECIMENOrdering Facility: [facility] Address: [address] [place] [address] Performed By: #### 5 7021-8 ####[facility] LABIA [id number] [place] [address] [place] MCH (RBC) [Entitic mass] 31.9 pg Normal 26.0-34.0 [facility] Comment on above: Order Comment: Speci men Type: BLOOD SPECIMENOrdering Facility: [facility] Address: [address] [place] [address] Performed By: #### 5 7021-8 ####[facility] LABIA [id number] [place] [address] [place] MCHC (RBC) [Mass/Vol] 32.5 g/dL Normal 30.5-36.0 [facility] Comment on above: Order Comment: Speci men Type: BLOOD SPECIMENOrdering Facility: [facility] Address: [address] [place] [address] Performed By: #### 5 7021-8 ####[facility] LABIA [id number] [place] [address] [place] MCV (RBC) [Entitic vol] 97.9 fL Normal 80.0-100.0 C [facility] Comment on above: Order Comment: Speci men Type: BLOOD SPECIMENOrdering Facility: [facility] Address: [address] [place] [address] Performed By: #### 5 7021-8 ####[facility] LABIA [id number] [place] [address] [place] Monocytes (Bld) [#/Vol] 0.61 10*3/uL Normal <0.87 [facility] Comment on above: Order Comment: Speci men Type: BLOOD SPECIMENOrdering Facility: [facility] Address: [address] [place] [address] Performed By: #### 5 7021-8 ####[facility] LABCLIA [id number] [place] [id number] [place] Monocytes/100 WBC (Bld) 7.8 % Normal [facility] Comment on above: Order Comment: Speci men Type: BLOOD SPECIMENOrdering Facility: [facility] Address: [address] [place] [address] Performed By: #### 5 7021-8 ####[facility] LABCLIA [id number] [place] [address] [place] Neutrophils (Bld) [#/Vol] 5.74 10*3/uL Normal 1.45-7.50 [facility] Comment on above: Order Comment: Speci men Type: BLOOD SPECIMENOrdering Facility: [facility] Address: [address] [place] [address] Performed By: #### 5 7021-8 ####[facility] LABCLIA [id number] [place] [address] [place] Neutrophils/100 WBC (Bld) 73.6 % Normal [facility] Comment on above: Order Comment: Speci men Type: BLOOD SPECIMENOrdering Facility: [facility] Address: [address] [place] [address] Performed By: #### 5 7021-8 ####[facility] LABCLIA [id number] [place] [id number] [place] Nucleated RBC (Bld) [#/Vol] 10*3/uL Normal <0.01 [facility] Comment on above: Order Comment: Speci men Type: BLOOD SPECIMENOrdering Facility: [facility] Address: [address] [place], [place] [id number] Performed By: #### 5 7021-8 ####[facility] LABCLIA [id number] [place] [address] [place] Nucleated RBC/100 WBC (Bld) [Ratio] 0.0 /100 WBC Normal [facility] Comment on above: Order Comment: Speci men Type: BLOOD SPECIMENOrdering Facility: [facility] Address: [address] [place] [address] Performed By: #### 5 7021-8 ####[facility] LABCLIA [id number] [place] [address] [place] Platelet mean volume (Bld) [Entitic vol] 9.8 fL Normal 9.0-12.7 [facility] Comment on above: Order Comment: Speci men Type: BLOOD SPECIMENOrdering Facility: [facility] Address: [address] [place] [address] Performed By: #### 5 7021-8 ####[facility] LABIA [id number] [place] [address] [place] Platelets (Bld) [#/Vol] 217 10*3/uL Normal 150-400 [facility] Comment on above: Order Comment: Speci men Type: BLOOD SPECIMENOrdering Facility: [facility] Address: [address] [place] [address] Performed By: #### 5 7021-8 ####[facility] LABIA [id number] [place] [address] [place] RBC (Bld) [#/Vol] 5.18 10*6/uL Normal 3.90-5.20 [facility] Comment on above: Order Comment: Speci men Type: BLOOD SPECIMENOrdering Facility: [facility] Address: [address] [place] [address] Performed By: #### 5 7021-8 ####[facility] LABIA [id number] [place] [address] [place] WBC (Bld) [#/Vol] 7.80 10*3/uL Normal 3.70-11.00 [facility] Comment on above: Order Comment: Speci men Type: BLOOD SPECIMENOrdering Facility: [facility] Address: [address] [place] [address] Performed By: #### 5 7021-8 ####[facility] LABCLIA [id number] [place] [address] [place] CNOVon 05-05-2024 CNOV Normal [facility] CONFIRM BLOOD TYPEon 024 ABO B Normal [facility] Comment on above: Order Comment: Speci men Type: BLOOD SPECIMENOrdering Facility: [facility] Address: [address] [place] [address] Performed By: #### C ONABO ####[facility] BLOOD BANKCLIA [id number] [place] [address] [place] Rh Nom (Bld) Positive Normal [facility] Comment on above: Order Comment: Speci men Type: BLOOD SPECIMENOrdering Facility: [facility] Address: [address] [place] [address] Performed By: #### C ONABO ####[facility] BLOOD BANKCLIA [id number] [place] [address] [place] ECG COMPLETEon 05-05-2024 ECG COMPLETE Normal [facility] HISTORY PHYSICALon HISTORY PHYSICAL Normal [facility] NM CARDIAC PERF STRESS/PHARM on 05-05-2024 NM CARDIAC PERF STRESS/PHARM Normal [facility] NM Heart Perfusion W stress and W radionuclide Iron 05-05-2024 * * *Final Report* * * DATE OF EXAM: May 05 2024 12:48PM Radha 0006 - NM CARDIAC PERF STRESS/PHARM / PROCEDURE REASON: multiple diagnoses * * * * Physician Interpretation * * * * Stress It Support Specialist Report: [facility] TERESA-2 Date of service: 05/05/2024 11:20:42 AM Supervising physician: Darryn Rodriguez MD PATIENT: Name: MRS. CHARLIE ESTRADA Age: 73 years Gender: F The supervising physician was in the department and immediately available. * * * Final * * * -- PATIENT: Name: MRS. CHARLIE ESTRADA Age: 73 years Gender: F CONCLUSIONS: 1. SPECT Perfusion Study: Normal. 2. There is no scintigraphic evidence for inducible ischemia. 3. No evidence of scarred myocardium. 4. Left ventricle is normal in size. The left ventricle systolic function is normal. 5. Right ventricle is normal in size. The right ventricle systolic function is normal. 6. This is a low risk scan. Gated Stress FBP Gated Rest FBP LVEF % 89 89 Prior Study Comparison No prior nuclear cardiology exam available for comparison. Nuclear Med Report:1-Day Gated SPECT Myocardial Perfusion with Regadenoson Stress: Myocardial perfusion imaging was performed at rest 30 minutes following the IV injection of the radiotracer. The patient received 0.4 mg of regadenoson, via rapid IV push, immediately followed by radiotracer IV. Gated post stress tomographic imaging was performed 30 to 60 minutes later. See administered radiotracer and doses below. [facility] Date of service: 05/05/2024 11:20:42 AM Ordering Physician: CASSY KO. Requesting Physician: CASSY KO Indication: Preop eval for noncard surg with intermediate risk and poor exercise tolerance Interpreting physician: Darryn Rodriguez MD Height: 167.64 cm BSA: 1.86 m Weight: 73.94 kg BMI: 26.3 kg/m Imaging Protocol Limitation Reason G.I. uptake. CT Dose-Length Product(DLP): 17.0 mGy * cm. CT Dose Reduction Employed: Yes. Exam Type: Rest Stress Radiopharm: Tc-99m Tetrofosmin Tc-99m Tetrofosmin Dosage(mCi): 11.8 32.4 Atten Correction: performed Stress Agent: Regadenoson 0.4mg Supply provided from [facility] Resting Blood Press: 138/96 mmHg Image Quality The overall study imaging quality was deemed to be good. The following technical issues were noted: G.I. uptake. FINDINGS: Stress IR:3D Gated Stress FBP Gated Rest FBP LVEF: 89 % 89 % ED Volume: 47 ml 46 ml ES Volume: 5 ml 5 ml TID: 0.93 Perfusion Findings Stress IR:3D - Summed Score=0 All segments demonstrate normal perfusion. Rest IR:3D - Summed Score=0 All segments demonstrate normal perfusion. Stress IR:3D Rest IR:3D Summed Score=0 Summed Score=0 LEFT VENTRICLE The left ventricle is normal in size. Left ventricular systolic function is normal. Right Ventricle The right ventricle is normal in size. Right ventricle systolic function is normal. Stress Test Findings: There is no scintigraphic evidence for inducible ischemia. There is no evidence of scarring. * * * Final * * * -- NM CTAC Report: [facility] Date of service: 05/05/2024 11:20:42 AM CTAC interpreting physician: Darryn Rodriguez MD PATIENT: Name: MRS. CHARLIE ESTRADA Age: 73 years Gender: F 1. Incidental Findings from limited non-diagnostic CTAC: - Coronary calcifications visualized. Bilateral breast implants * * * Final * * * -- Stress ECG Report: [facility] Date of service: 05/05/2024 11:20:42 AM Ordering physician: CASSY KO instructional specialist: Jonn Tucker Catalogue Clerk: Charlie Rick Interpreting physician: Darryn Rodriguez MD Patient name: MRS. CHARLIE ESTRADA Age: 73 years Gender: F Height: 167.64 cm BSA: 1.86 m Weight: 73.94 kg BMI: 26.3 kg/m Indication: Encounter for pre-procedural cardiovascular examination for non-cardiac surgery Stress ECG Conclusion: Conclusion: Normal Stress ECG Summary: The patient's resting heart rate was 70 bp (more content not included)... DIVISION OF RADIOLOGY Provider, [facility] - 05/05/2024 * * *Final Report* * * DATE OF EXAM: May 05 2024 12:48PM [facility] 0006 - NM CARDIAC PERF STRESS/PHARM / PROCEDURE REASON: multiple diagnoses * * * * Physician Interpretation * * * * Stress It Support Specialist Report: [facility] Date of service: 05/05/2024 11:20:42 AM Supervising physician: Darryn Rodriguez MD PATIENT: Name: MRS. CHARLIE ESTRADA Age: 73 years Gender: F The supervising physician was in the department and immediately available. * * * Final * * * -- PATIENT: Name: MRS. CHARLIE ESTRADA Age: 73 years Gender: F CONCLUSIONS: 1. SPECT Perfusion Study: Normal. 2. There is no scintigraphic evidence for inducible ischemia. 3. No evidence of scarred myocardium. 4. Left ventricle is normal in size. The left ventricle systolic function is normal. 5. Right ventricle is normal in size. The right ventricle systolic function is normal. 6. This is a low risk scan. Gated Stress FBP Gated Rest FBP LVEF % 89 89 Prior Study Comparison No prior nuclear cardiology exam available for comparison. Nuclear Med Report:1-Day Gated SPECT Myocardial Perfusion with Regadenoson Stress: Myocardial perfusion imaging was performed at rest 30 minutes following the IV injection of the radiotracer. The patient received 0.4 mg of regadenoson, via rapid IV push, immediately followed by radiotracer IV. Gated post stress tomographic imaging was performed 30 to 60 minutes later. See administered radiotracer and doses below. [facility] Date of service: 05/05/2024 11:20:42 AM Ordering Physician: CASSY KO. Requesting Physician: CASSY KO Indication: Preop eval for noncard surg with intermediate risk and poor exercise tolerance Interpreting physician: Darryn Rodriguez MD Height: 167.64 cm BSA: 1.86 m Weight: 73.94 kg BMI: 26.3 kg/m Imaging Protocol Limitation Reason G.I. uptake. CT Dose-Length Product(DLP): 17.0 mGy * cm. CT Dose Reduction Employed: Yes. Exam Type: Rest Stress Radiopharm: Tc-99m Tetrofosmin Tc-99m Tetrofosmin Dosage(mCi): 11.8 32.4 Atten Correction: performed Stress Agent: Regadenoson 0.4mg Supply provided from [facility] Resting Blood Press: 138/96 mmHg Image Quality The overall study imaging quality was deemed to be good. The following technical issues were noted: G.I. uptake. FINDINGS: Stress IR:3D Gated Stress FBP Gated Rest FBP LVEF: 89 % 89 % ED Volume: 47 ml 46 ml ES Volume: 5 ml 5 ml TID: 0.93 Perfusion Findings Stress IR:3D - Summed Score=0 All segments demonstrate normal perfusion. Rest IR:3D - Summed Score=0 All segments demonstrate normal perfusion. Stress IR:3D Rest IR:3D Summed Score=0 Summed Score=0 LEFT VENTRICLE The left ventricle is normal in size. Left ventricular systolic function is normal. Right Ventricle The right ventricle is normal in size. Right ventricle systolic function is normal. Stress Test Findings: There is no scintigraphic evidence for inducible ischemia. There is no evidence of scarring. * * * Final * * * -- NM CTAC Report: [facility] Date of service: 05/05/2024 11:20:42 AM CTAC interpreting physician: Darryn Rodriguez MD PATIENT: Name: MRS. CHARLIE ESTRADA Age: 73 years Gender: F 1. Incidental Findings from limited non-diagnostic CTAC: - Coronary calcifications visualized. Bilateral breast implants * * * Final * * * -- Stress ECG Report: [facility] Date of service: 05/05/2024 11:20:42 AM Ordering physician: CASSY KO instructional specialist: Jonn Tucker Catalogue Clerk: Charlie Rick Interpreting physician: Darryn Rodriguez MD Patient name: MRS. CHARLIE ESTRADA Age: 73 years Gender: F Height: 167.64 cm BSA: 1.86 m Weight: 73.94 kg BMI: 26.3 kg/m Indication: Encounter for pre-procedural cardiovascular examination for non-cardiac surgery Stress ECG Conclusion: Conclusion: Normal Stress ECG Summary: The patient's resting heart rate was 70 bpm and blood pressure was 138/96 mmHg. The test was terminated due to end of protocol. No symptoms provoked during stress. The maximum heart rate was 75 bpm, which is 50% of the predicted heart rate for age. Peak blood pressure was 126/80 mmHg. The double product achieved was 9450. Medications: Last Used ME (more content not included)... [facility] Radiology Study observation (narrative) Lakshmi vargas [facility] NM Heart Perfusion W stress and W radionuclide IVOrdered By: [facility] Provider on 05-05-2024 [facility] PT panel Coag (PPP)on 2023 INR Coag (PPP) [Relative time] 1.0 {INR} Normal 0.9-1.3 [facility] Comment on above: Order Comment: Speci men Type: BLOOD SPECIMENOrdering Facility: [facility] Address: [address] [place] [address] Result Comment: Hermila min K Antagonist (VKA) Therapeutic Range: INR 2 to 3 (Target INR of 2.5)Note: For patients treated with VKA drugs, such as warfarin, the [place] [employer] 2012 Guideline recommends a therapeutic INR range of 2 to 3 (target INR of 2.5). This recommendation includes high-risk patients with antiphospholipid syndrome with previous arterial or venous thromboembolism, current-generation mechanical or bioprosthetic aortic heart valve replacement.Note: Patients with mechanical aortic valve replacement and additional risk factors for thromboembolic events (atrial fibrillation, previous thromboembolism, LV dysfunction, hypercoagulable conditions) or an older generation mechanical AVR (i.e., ball in-Cage) or any mechanical MVR should have a INR therapeutic range of 2.5 to 3.5 (target INR of 3).Gabriella GH, et al. Chest 2012, 141:7S-47SNishbernardo RA, et al. [facility] 2017, 70: 252-289 Performed By: #### 3 4528-0 ####[facility] LABIA [id number] [address] [place] PT Coag (PPP) [Time] 11.0 s Normal 9.7-13.0 [facility] Comment on above: Order Comment: Speci men Type: BLOOD SPECIMENOrdering Facility: [facility] Address: [address] [place] [address] Performed By: #### 3 4528-0 ####[facility] LABIA [id number] [address] [place] STAPHYLOCOCCUS AUREUS AND MR SA SCREEN, PCR, NASALon 05-05-2024 S. aureus and MRSA panel JORDAN+probe (Nose) Not detected Normal Not Detected [facility] Comment on above: Order Comment: Speci men Type: SWABOrdering Facility: [facility] Address: [address] [place] [address] Performed By: #### S APCR ####[facility] LABCLIA [id number] [address] [place] TYPE AND SCREEN,30 DAYon ABO B Normal [facility] Comment on above: Order Comment: Speci men Type: BLOOD SPECIMENOrdering Facility: [facility] Address: [address] [place] [address] Performed By: #### T SCR30 ####CC MAIN BLOOD BANKCLIA [id number] [place] [address] [place] Rh Nom (Bld) Positive Normal [facility] Comment on above: Order Comment: Speci men Type: BLOOD SPECIMENOrdering Facility: [facility] Address: [address] [place] [address] Performed By: #### T SCR30 ####CC MAIN BLOOD BANKCLIA [id number] [place] [address] [place] MR/BMS.IMBon 05-01-2024 MR/BMS.IMB Normal [facility] CNOVon 04-03-2024 CNOV Normal [facility] CREATININE, BLOOD (POC)on Creatinine [Mass/Vol] 0.90 mg/dL 0.7 - 1.4 mg/dL [facility] eGFR (POCT) mL/min/1.73 m2 [facility] Location:Radiology [facility], [address] [place] [address], [address] [place] [address] POINT OF CARE [facility] CTA ABD/PELV W IVCONon 04-03 CTA ABD/PELV W IVCON Normal [facility] CTA Abdominal vessels and Pe lvis vessels W contrast Iron 04-03-2024 * * *Final Report* * * DATE OF EXAM: Apr 03 2024 9:52AM [facility] 0311 - CTA ABD/PELV W IVCON / PROCEDURE REASON: multiple diagnoses * * * * Physician Interpretation * * * * CTA Aorta chest, abdomen and pelvis Direct Image Comparison: [facility] CTA abdomen pelvis in June 2023 HISTORY: 73 years old Female with infrarenal abdominal aortic aneurysm on outside hospital CT referred for further assessment of thoracoabdominal aorta. TECHNIQUE: SCANNER: out-patient Siemens Definition Flash Dual source [id number] scanner PROTOCOL: Prospectively triggered helical high-pitch acquisitions (triggered Flash-mode) was performed following the intravenous administration of contrast material. Scan Range: thoracic inlet through the ischial tuberosities CT Dose-Length Product (DLP): 984 mGy*cm CT Dose Reduction Employed: Automated exposure control(AEC) and iterative recon CONTRAST: IV administration of 100 ml Omnipaque 350 Scan acquisition: uncomplicated Macro Version: [id number] For optimization of anatomic evaluation, advanced 3-D off-line postprocessing was performed on a dedicated workstation by the interpreting physician. STUDY LIMITATIONS: None. RESULT: LINES, TUBES and DEVICES: None CHEST: Chest wall anatomy: Bilateral breast implants LUNGS: mild upper lobe predominant emphysematous changes. Small (<6 mm) non-calcified lung nodules. MEDIASTINUM: small mediastinal lymph nodes, which are not pathologic by size criteria. PERICARDIUM: unremarkable CENTRAL PULMONARY ARTERY: no central filling defect CENTRAL VENOUS and PULMONARY VENOUS RETURN: normal. Coronary Sinus: normal size CORONARY ANATOMY: normal origin of the coronary arteries. Calcified atherosclerotic changes of the coronary arteries, precluding precise assessment with CT. CARDIAC CHAMBERS: LEFT VENTRICLE: normal size. RIGHT VENTRICLE: normal size Left Atrium: normal size. JASEN: normal. Right Atrium: normal size MITRAL VALVE: assessment is limited in the current study - no leaflet calcification. No annular calcification TRICUSPID and PULMONIC VALVE: appear unremarkable. AORTIC VALVE: assessment is limited in this single-phase study, appears trileaflet. No leaflet calcification. AORTA: Pathology: Aneurysm. Intervention: None Complications: n/a Aortic Size: Normal caliber thoracic aorta. Aneurysm, infrarenal abdominal aortic with significant amount of adherent luminal thrombus. Shallow penetrating aortic ulcerated plaque in distal descending thoracic aorta STJ: maintained. Wall Changes: Severe atherosclerotic changes in abdominal aorta and bilateral iliofemoral arteries. Moderate to severe atherosclerotic changes within the aortic arch and descending thoracic aorta. Arch Branch Vessels: Patent, normal size proximal segments of the arch branch vessels, with moderate mixed atherosclerotic plaque. Visceral Branch Vessels: Severe occipital luminal narrowing of the celiac and right renal artery. MARCK not well visualized. 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 Severe calcific atherosclerotic changes within right iliofemoral arteries. Moderate atherosclerotic plaque within left iliofemoral arteries. AORTIC DIMENSIONS: AORTIC ROOT: 3.5 cm mid ASCENDING THORACIC AORTA: 3.6 cm mid AORTIC ARCH: 3.0 cm mid DESCENDING THORACIC AORTA: 2.7 cm JUXTARENAL ABDOMINAL AORTA (level of SMA): 3.1 cm . moderate adherent luminal thrombus mid INFRARENAL ABDOMINAL AORTA: 5.8 cm with significant amount of adherent luminal thrombus. Aneurysmal left common iliac artery: 4.1 cm with significant amount of adherent luminal thrombus. ABDOMEN Gallbladder: unremarkable. Liver: Small partially enhancing lesion, most consistent with hemangioma, similar to reported on prior imaging Spleen: unremarkable. Adrenal glands: unremarkable. Pancreas: unremarkable. Kidneys: cystic lesions. Bowel: diverticulosis. PELVIS: scattered phleboliths. Bladder: unremarkable. evidence of hysterectomy. BONES and SOFT TISSUES: degenerative changes of the thoracic and lumbar spine. Engineering Drawings Checker (topogram) images: No additional findings. DIVISION OF RADIOLOGY Provider, [facility] - 04/03/2024 * * *Final Report* * * DATE OF EXAM: Apr 03 2024 9:52AM [facility] 0311 - CTA ABD/PELV W IVCON / PROCEDURE REASON: multiple diagnoses * * * * Physician Interpretation * * * * CTA Aorta chest, abdomen and pelvis Direct Image Comparison: [facility] CTA abdomen pelvis in June 2023 HISTORY: 73 years old Female with infrarenal abdominal aortic aneurysm on outside hospital CT referred for further assessment of thoracoabdominal aorta. TECHNIQUE: SCANNER: out-patient Siemens Definition Flash Dual source [id number] scanner PROTOCOL: Prospectively triggered helical high-pitch acquisitions (triggered Flash-mode) was performed following the intravenous administration of contrast material. Scan Range: thoracic inlet through the ischial tuberosities CT Dose-Length Product (DLP): 984 mGy*cm CT Dose Reduction Employed: Automated exposure control(AEC) and iterative recon CONTRAST: IV administration of 100 ml Omnipaque 350 Scan acquisition: uncomplicated Macro Version: [id number] For optimization of anatomic evaluation, advanced 3-D off-line postprocessing was performed on a dedicated workstation by the interpreting physician. STUDY LIMITATIONS: None. RESULT: LINES, TUBES and DEVICES: None CHEST: Chest wall anatomy: Bilateral breast implants LUNGS: mild upper lobe predominant emphysematous changes. Small (<6 mm) non-calcified lung nodules. MEDIASTINUM: small mediastinal lymph nodes, which are not pathologic by size criteria. PERICARDIUM: unremarkable CENTRAL PULMONARY ARTERY: no central filling defect CENTRAL VENOUS and PULMONARY VENOUS RETURN: normal. Coronary Sinus: normal size CORONARY ANATOMY: normal origin of the coronary arteries. Calcified atherosclerotic changes of the coronary arteries, precluding precise assessment with CT. CARDIAC CHAMBERS: LEFT VENTRICLE: normal size. RIGHT VENTRICLE: normal size Left Atrium: normal size. JASEN: normal. Right Atrium: normal size MITRAL VALVE: assessment is limited in the current study - no leaflet calcification. No annular calcification TRICUSPID and PULMONIC VALVE: appear unremarkable. AORTIC VALVE: assessment is limited in this single-phase study, appears trileaflet. No leaflet calcification. AORTA: Pathology: Aneurysm. Intervention: None Complications: n/a Aortic Size: Normal caliber thoracic aorta. Aneurysm, infrarenal abdominal aortic with significant amount of adherent luminal thrombus. Shallow penetrating aortic ulcerated plaque in distal descending thoracic aorta STJ: maintained. Wall Changes: Severe atherosclerotic changes in abdominal aorta and bilateral iliofemoral arteries. Moderate to severe atherosclerotic changes within the aortic arch and descending thoracic aorta. Arch Branch Vessels: Patent, normal size proximal segments of the arch branch vessels, with moderate mixed atherosclerotic plaque. Visceral Branch Vessels: Severe occipital luminal narrowing of the celiac and right renal artery. MARCK not well visualized. 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 Severe calcific atherosclerotic changes within right iliofemoral arteries. Moderate atherosclerotic plaque within left iliofemoral arteries. AORTIC DIMENSIONS: AORTIC ROOT: 3.5 cm mid ASCENDING THORACIC AORTA: 3.6 cm mid AORTIC ARCH: 3.0 cm mid DESCENDING THORACIC AORTA: 2.7 cm JUXTARENAL ABDOMINAL AORTA (level of SMA): 3.1 cm . moderate adherent luminal thrombus mid INFRARENAL ABDOMINAL AORTA: 5.8 cm with significant amount of adherent luminal thrombus. Aneurysmal left common iliac artery: 4.1 cm with significant amount of adherent luminal thrombus. ABDOMEN Gallbladder: unremarkable. Liver: Small partially enhancing lesion, most consistent with hemangioma, similar to reported on prior imaging Spleen: unremarkable. Adrenal glands: unremarkable. Pancreas: unremarkable. Kidneys: cystic lesions. Bowel: diverticulosis. PELVIS: scattered phleboliths. Bladder: unremarkable. evidence of hysterectomy. BONES and SOFT TISSUES: degenerative changes of the thoracic and lumbar spine. Engineering Drawings Checker (topogram) images: No additional findings. IMPRESSION IMPRESSION: 1. Trileaflet aortic valve morphology with no significant leaflet calcification. Normal caliber thoracic aorta. No acute thoracic aortic pathology. Moderate atheroma within descending thoracic aorta. 2. Infrarenal abdominal aortic aneurysm (5.8 cm) with significant amount of adherent luminal thrombus. 3. 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 4. 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 [employer] Maker: RODNEY Transcribe Date/Time: Apr 03 2024 10:3 (more content not included)... [facility] CTA CHEST (NONGATED) W IVCON on 04-03-2024 CTA CHEST (NONGATED) W IVCON Normal [facility] CTA Chest vessels W contrast Iron 04-03-2024 * * *Final Report* * * DATE OF EXAM: Apr 03 2024 9:52AM [facility] 0123 - CTA CHEST (NONGATED) W IVCON / PROCEDURE REASON: multiple diagnoses * * * * Physician Interpretation * * * * CTA Aorta chest, abdomen and pelvis Direct Image Comparison: OS CTA abdomen pelvis in June 2023 HISTORY: 73 years old Female with infrarenal abdominal aortic aneurysm on outside hospital CT referred for further assessment of thoracoabdominal aorta. TECHNIQUE: SCANNER: out-patient Siemens Definition Flash Dual source [id number] scanner PROTOCOL: Prospectively triggered helical high-pitch acquisitions (triggered Flash-mode) was performed following the intravenous administration of contrast material. Scan Range: thoracic inlet through the ischial tuberosities CT Dose-Length Product (DLP): 984 mGy*cm CT Dose Reduction Employed: Automated exposure control(AEC) and iterative recon CONTRAST: IV administration of 100 ml Omnipaque 350 Scan acquisition: uncomplicated Macro Version: [id number] For optimization of anatomic evaluation, advanced 3-D off-line postprocessing was performed on a dedicated workstation by the interpreting physician. STUDY LIMITATIONS: None. RESULT: LINES, TUBES and DEVICES: None CHEST: Chest wall anatomy: Bilateral breast implants LUNGS: mild upper lobe predominant emphysematous changes. Small (<6 mm) non-calcified lung nodules. MEDIASTINUM: small mediastinal lymph nodes, which are not pathologic by size criteria. PERICARDIUM: unremarkable CENTRAL PULMONARY ARTERY: no central filling defect CENTRAL VENOUS and PULMONARY VENOUS RETURN: normal. Coronary Sinus: normal size CORONARY ANATOMY: normal origin of the coronary arteries. Calcified atherosclerotic changes of the coronary arteries, precluding precise assessment with CT. CARDIAC CHAMBERS: LEFT VENTRICLE: normal size. RIGHT VENTRICLE: normal size Left Atrium: normal size. JASEN: normal. Right Atrium: normal size MITRAL VALVE: assessment is limited in the current study - no leaflet calcification. No annular calcification TRICUSPID and PULMONIC VALVE: appear unremarkable. AORTIC VALVE: assessment is limited in this single-phase study, appears trileaflet. No leaflet calcification. AORTA: Pathology: Aneurysm. Intervention: None Complications: n/a Aortic Size: Normal caliber thoracic aorta. Aneurysm, infrarenal abdominal aortic with significant amount of adherent luminal thrombus. Shallow penetrating aortic ulcerated plaque in distal descending thoracic aorta STJ: maintained. Wall Changes: Severe atherosclerotic changes in abdominal aorta and bilateral iliofemoral arteries. Moderate to severe atherosclerotic changes within the aortic arch and descending thoracic aorta. Arch Branch Vessels: Patent, normal size proximal segments of the arch branch vessels, with moderate mixed atherosclerotic plaque. Visceral Branch Vessels: Severe occipital luminal narrowing of the celiac and right renal artery. MARCK not well visualized. 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 Severe calcific atherosclerotic changes within right iliofemoral arteries. Moderate atherosclerotic plaque within left iliofemoral arteries. AORTIC DIMENSIONS: AORTIC ROOT: 3.5 cm mid ASCENDING THORACIC AORTA: 3.6 cm mid AORTIC ARCH: 3.0 cm mid DESCENDING THORACIC AORTA: 2.7 cm JUXTARENAL ABDOMINAL AORTA (level of SMA): 3.1 cm . moderate adherent luminal thrombus mid INFRARENAL ABDOMINAL AORTA: 5.8 cm with significant amount of adherent luminal thrombus. Aneurysmal left common iliac artery: 4.1 cm with significant amount of adherent luminal thrombus. ABDOMEN Gallbladder: unremarkable. Liver: Small partially enhancing lesion, most consistent with hemangioma, similar to reported on prior imaging Spleen: unremarkable. Adrenal glands: unremarkable. Pancreas: unremarkable. Kidneys: cystic lesions. Bowel: diverticulosis. PELVIS: scattered phleboliths. Bladder: unremarkable. evidence of hysterectomy. BONES and SOFT TISSUES: degenerative changes of the thoracic and lumbar spine. Engineering Drawings Checker (topogram) images: No additional findings. DIVISION OF RADIOLOGY Provider, Ketty Roberta [facility] - 04/03/2024 * * *Final Report* * * DATE OF EXAM: Apr 03 2024 9:52AM [facility] 0123 - CTA CHEST (NONGATED) W IVCON / PROCEDURE REASON: multiple diagnoses * * * * Physician Interpretation * * * * CTA Aorta chest, abdomen and pelvis Direct Image Comparison: OSH CTA abdomen pelvis in June 2023 HISTORY: 73 years old Female with infrarenal abdominal aortic aneurysm on outside hospital CT referred for further assessment of thoracoabdominal aorta. TECHNIQUE: SCANNER: out-patient Siemens Definition Flash Dual source [id number] scanner PROTOCOL: Prospectively triggered helical high-pitch acquisitions (triggered Flash-mode) was performed following the intravenous administration of contrast material. Scan Range: thoracic inlet through the ischial tuberosities CT Dose-Length Product (DLP): 984 mGy*cm CT Dose Reduction Employed: Automated exposure control(AEC) and iterative recon CONTRAST: IV administration of 100 ml Omnipaque 350 Scan acquisition: uncomplicated Macro Version: [id number] For optimization of anatomic evaluation, advanced 3-D off-line postprocessing was performed on a dedicated workstation by the interpreting physician. STUDY LIMITATIONS: None. RESULT: LINES, TUBES and DEVICES: None CHEST: Chest wall anatomy: Bilateral breast implants LUNGS: mild upper lobe predominant emphysematous changes. Small (<6 mm) non-calcified lung nodules. MEDIASTINUM: small mediastinal lymph nodes, which are not pathologic by size criteria. PERICARDIUM: unremarkable CENTRAL PULMONARY ARTERY: no central filling defect CENTRAL VENOUS and PULMONARY VENOUS RETURN: normal. Coronary Sinus: normal size CORONARY ANATOMY: normal origin of the coronary arteries. Calcified atherosclerotic changes of the coronary arteries, precluding precise assessment with CT. CARDIAC CHAMBERS: LEFT VENTRICLE: normal size. RIGHT VENTRICLE: normal size Left Atrium: normal size. JASEN: normal. Right Atrium: normal size MITRAL VALVE: assessment is limited in the current study - no leaflet calcification. No annular calcification TRICUSPID and PULMONIC VALVE: appear unremarkable. AORTIC VALVE: assessment is limited in this single-phase study, appears trileaflet. No leaflet calcification. AORTA: Pathology: Aneurysm. Intervention: None Complications: n/a Aortic Size: Normal caliber thoracic aorta. Aneurysm, infrarenal abdominal aortic with significant amount of adherent luminal thrombus. Shallow penetrating aortic ulcerated plaque in distal descending thoracic aorta STJ: maintained. Wall Changes: Severe atherosclerotic changes in abdominal aorta and bilateral iliofemoral arteries. Moderate to severe atherosclerotic changes within the aortic arch and descending thoracic aorta. Arch Branch Vessels: Patent, normal size proximal segments of the arch branch vessels, with moderate mixed atherosclerotic plaque. Visceral Branch Vessels: Severe occipital luminal narrowing of the celiac and right renal artery. MARCK not well visualized. 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 Severe calcific atherosclerotic changes within right iliofemoral arteries. Moderate atherosclerotic plaque within left iliofemoral arteries. AORTIC DIMENSIONS: AORTIC ROOT: 3.5 cm mid ASCENDING THORACIC AORTA: 3.6 cm mid AORTIC ARCH: 3.0 cm mid DESCENDING THORACIC AORTA: 2.7 cm JUXTARENAL ABDOMINAL AORTA (level of SMA): 3.1 cm . moderate adherent luminal thrombus mid INFRARENAL ABDOMINAL AORTA: 5.8 cm with significant amount of adherent luminal thrombus. Aneurysmal left common iliac artery: 4.1 cm with significant amount of adherent luminal thrombus. ABDOMEN Gallbladder: unremarkable. Liver: Small partially enhancing lesion, most consistent with hemangioma, similar to reported on prior imaging Spleen: unremarkable. Adrenal glands: unremarkable. Pancreas: unremarkable. Kidneys: cystic lesions. Bowel: diverticulosis. PELVIS: scattered phleboliths. Bladder: unremarkable. evidence of hysterectomy. BONES and SOFT TISSUES: degenerative changes of the thoracic and lumbar spine. Engineering Drawings Checker (topogram) images: No additional findings. IMPRESSION IMPRESSION: 1. Trileaflet aortic valve morphology with no significant leaflet calcification. Normal caliber thoracic aorta. No acute thoracic aortic pathology. Moderate atheroma within descending thoracic aorta. 2. Infrarenal abdominal aortic aneurysm (5.8 cm) with significant amount of adherent luminal thrombus. 3. 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 4. 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 [employer]ather [employer] Maker: RODNEY Transcribe Date/Time: Apr 03 2 (more content not included)... [facility] No Panel Informationon 04-03 IMPRESSION: 1. Trileaflet aortic valve morphology with no significant leaflet calcification. Normal caliber thoracic aorta. No acute thoracic aortic pathology. Moderate atheroma within descending thoracic aorta. 2. Infrarenal abdominal aortic aneurysm (5.8 cm) with significant amount of adherent luminal thrombus. 3. 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 4. 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 [employer] Maker: RODNEY Transcribe Date/Time: Apr 03 2024 10:34A Dictated by : PACO GILMAN MD This examination was interpreted and the report reviewed and electronically signed by: PACO GILMAN MD on Apr 03 2024 1:51PM [facility] DIVISION OF RADIOLOGY Radiology Study observation (narrative) [facility] No Panel InformationOrdered By: [facility] Provider on 04-03-2024 [facility] No Panel InformationOrdered By: Ilia Odom on 06-11-2023 Estimated GFR (MDRD) Amer 83 mL/min >60 [facility] Comment on above: GFR Calc Estimated GFR (MDRD) Non-Af Amer 69 mL/min >60 [facility] Comment on above: Non- GFR Calc Serum or plasma creatinine m easurement (mass/volume)Ordered By: Ilia Odom on 06-11-2023 Creatinine [Mass/Vol] 0.87 mg/dL 0.55-1.02 [facility] Comment on above: The validity of the calculated GFR & GFRAA in patients over 70 years has not been determined. Clinical correlation is essential. Serum or plasma urea nitroge n measurement (mass/volume)Ordered By: Ilia Odom on 06-11-2023 Urea nitrogen [Mass/Vol] 14 mg/dL - [facility] Absolute lymphocyte countOrd ered By: Dr. Barillas on 10-25-2022 Lymphocytes Auto (Unsp spec) [#/Vol] 2.44 10*3/uL 0.83-4.51 [facility] Basophil percentageOrdered B y: Dr. Barillas on 10-25-2022 Basophils/100 WBC (Bld) 0.7 % 0-1 [facility] Chloride [Moles/Vol] 108 mmol/L 98-107 [facility] Eosinophils/100 WBC (Bld) 3.5 % 0-5 [facility] Glucose [Mass/Vol] 89 mg/dL 74-106 [facility] Neutrophils (Bld) [#/Vol] 5.6 10*3/uL 2.0-7.7 [facility] Neutrophils/100 WBC (Bld) 61.4 % 47-70 [facility] Potassium [Moles/Vol] 4.0 mmol/L 3.5-5.1 [facility] Sodium [Moles/Vol] 140 mmol/L 136-145 [facility] WBC (Bld) [#/Vol] 9.2 10*3/uL 4.4-11.0 [facility] Blood erythrocytes count (nu mber/volume)Ordered By: Dr. Barillas on 10-25-2022 RBC (Bld) [#/Vol] 4.35 10*6/uL 4.2-5.4 [facility] Blood hemoglobin measurement (mass/volume)Ordered By: Dr. Barillas on 10-25-2022 Hemoglobin (Bld) [Mass/Vol] 15.4 g/dL 12.0-15.0 [facility] Blood lymphocytes/100 leukoc ytesOrdered By: Dr. Barillas on 10-25-2022 Lymphocytes/100 WBC (Bld) 26.6 % 19-41 [facility] Blood monocytes/100 leukocyt esOrdered By: Dr. Barillas on 10-25-2022 Monocytes/100 WBC (Bld) 6.3 % 0-10 [facility] Blood platelet mean volumeOr dered By: Dr. Barillas on 10-25-2022 Platelet mean volume (Bld) [Entitic vol] 9.6 fL 6.2-12.0 [facility] Body fluid leukocytes count (number/volume)Ordered By: Dr. Barillas on 10-25-2022 WBC (Body fld) [#/Vol] 0.001 10*3/uL [facility] Cerebrospinal fluid appearan ce descriptionOrdered By: Dr. Barillas on 10-25-2022 Appearance (CSF) CLEAR Clear [facility] Cerebrospinal fluid cell cou ntOrdered By: Dr. Barillas on 10-25-2022 Cell count panel (CSF) [facility] Comment on above: Test not performedTh is is the Total Number of Nucleated Cell Types in the Unconcentrated Body Fluid. Cerebrospinal fluid color id entificationOrdered By: Dr. Barillas on 10-25-2022 Color (CSF) COLORLESS Colorless [facility] Cerebrospinal fluid glucose measurement (mass/volume)Ordered By: Dr. Barillas on 10-25-2022 Glucose (CSF) [Mass/Vol] 61 mg/dL 40-75 [facility] Cerebrospinal fluid white bl ood cell countOrdered By: Dr. Barillas on 10-25-2022 WBC (CSF) [#/Vol] 1 /mm-3 0-5 [facility] Determination of erythrocyte mean corpuscular volume (MCV)Ordered By: Dr. Barillas on 10-25-2022 MCV (RBC) [Entitic vol] 104.6 fL 81-99 [facility] Hematocrit Auto (Bld) [Volum e fraction]Ordered By: Dr. Barillas on 10-25-2022 Hematocrit (Bld) [Volume fraction] 45.5 % 37-47 [facility] Laboratory - Chemistry and C hemistry - challengeOrdered By: Dr. Barillas on 10-25-2022 CO2 [Moles/Vol] 24.0 mmol/L 21.0-32.0 [facility] Urea nitrogen/Creatinine [Mass ratio] 21.2 mg/mg 10-20 [facility] - Hematology and Cell countsOrdered By: Dr. Barillas on 10-25-2022 Erythrocyte distribution width (RBC) [Entitic vol] 57.6 fL 35.1-43.9 [facility] Erythrocyte distribution width (RBC) [Ratio] 14.7 % 11.6-14.6 [facility] Immature granulocytes/100 WBC (Bld) 1.500 % 0.0-0.9 [facility] Comment on above: IG% - Immature Granu locytes (promyelocytes, myelocytes and metamyelocytes) > 1% indicates that a LEFT SHIFT is Present. MCH (RBC) [Entitic mass] 35.4 pg 27.0-32.0 [facility] Nucleated RBC/100 WBC (Bld) [Ratio] 0 % 0-5 [facility] - Specimen inform ationOrdered By: Dr. Barillas on 10-25-2022 Tube number Nom (CSF) [ID] 4 [facility] MCHC Auto (RBC) [Mass/Vol]Or dered By: Dr. Barillas on 10-25-2022 MCHC (RBC) [Mass/Vol] 33.8 g/dL 32-36 [facility] Mononuclear cells Auto (Body fld) [#/Vol]Ordered By: Dr. Barillas on 10-25-2022 Mononuclear cells (Body fld) [#/Vol] 0.000 10*3/uL [facility] No Panel InformationOrdered By: Dr. Barillas on 10-25-2022 Body Fluid Mononuclear WBCs (%) 100.0 % [facility] Body Fluid Polynuclear WBCs (%) 0.0 % [facility] CSF RBC 12 /mm-3 None seen [facility] CSF Total Protein 70.0 mg/dL 15.0-45.0 [facility] Estimated Creatinine Clearance Calc 47.79 ml/min [facility] Estimated GFR (MDRD) Amer 67 mL/min >60 [facility] Comment on above: GFR Calc Estimated GFR (MDRD) Non-Af Amer 56 mL/min >60 [facility] Comment on above: Non- GFR Calc Platelets bldOrdered By: Dr. Barillas on 10-25-2022 Platelets (Bld) [#/Vol] 244 10*3/uL 150-450 [facility] Review by pathologistOrdered By: Dr. Barillas on 10-25-2022 Pathologist review Leonid (Unsp spec) [Interp] May follow [facility] Serum or plasma calcium tommy urement (mass/volume)Ordered By: Dr. Barillas on 10-25-2022 Calcium [Mass/Vol] 9.1 mg/dL 8.5-10.1 [facility] Serum or plasma creatinine m easurement (mass/volume)Ordered By: Dr. Barillas on 10-25-2022 Creatinine [Mass/Vol] 1.04 mg/dL 0.55-1.02 [facility] Comment on above: The validity of the calculated GFR & GFRAA in patients over 70 years has not been determined. Clinical correlation is essential. Serum or plasma urea nitroge n measurement (mass/volume)Ordered By: Dr. Barillas on 10-25-2022 Urea nitrogen [Mass/Vol] 22 mg/dL 7-18 [facility] Thin prep Papanicolaou smear with manual screeningOrdered By: Dr. Barillas on 10-25-2022 Thin prep Papanicolaou smear with manual screening 8 5-15 [facility] Basophil percentageon 2021 Creatinine [Mass/Vol] 1.4 mg/dL 0.55-1.02 [facility] Work Phone: Laboratory - Chemistry and C hemistry - challengeon 06-07-2022 GFR/1.73 sq M.predicted among non-blacks MDRD (S/P/Bld) [Vol rate/Area] 41.0000 mL/min/{1.73_m2} >60 [facility] Work Phone: Laboratory - Microbiology an d Antimicrobial susceptibilityon 02-20-2022 SARS-CoV-2 (COVID-19) RNA JORDAN+probe Ql (Unsp spec) Detected [facility] Work Phone: No Panel Informationon 02-20 Influenza Types A,B Rapid (Clinic) Not detected [facility] Work Phone: [facility] Procedure Noteon Protein mass conc Normal [facility] ([place] Final Surgical Pathology Rep [facility] 04-24-2018 Final Surgical Pathology Report . Pathology ReportsAccession: Collected Date/Time: Received Date/Time: Pathologist:[id number] 04/22/2018 10:24 EDT 04/23/2018 09:27 EDT DO RAYRAY RIVER Final Surgical Pathology ReportDIAGNOSIS:A) TUBULAR ADENOMA, MID-TRANSVERSE COLON.B) TUBULAR ADENOMA, HEPATIC FLEXURE.C) EXTENSIVELY CAUTERIZED HYPERPLASTIC POLYP, DISTAL SIGMOID.COMMENT:[facility]# [id number] INFORMATION:Procedure: colonoscopy with hot snare polypectomies, cold snare polypectomy and polyp biopsiesPreoperative diagnosis: positive cologuardPostoperative diagnosis: sameSPECIMEN:A POLYP, MID-TRANSVERSE COLONB POLYP, HEPATIC FLEXURE - BIOPSY OFC POLYP, DISTAL SIGMOIDGROSS DESCRIPTION: A. Received in formalin labeled mid transverse colon polyp is a 1.2 x 1.2 x 0.8 cm red-causey lobular tissue. Trisected. TS -1B. Received in formalin labeled hepatic flexure polyp biopsy are 2 causey glistening soft tissues, 0.2 and 0.5 cm. TS - 1C. Received in formalin labeled distal sigmoid polyps are 3 causey glistening soft tissues ranging from 0.3-0.7 cm. TS -1Dictated by Shelli MIGUEL ([facility])MICROSCOPIC DESCRIPTION:Slides reviewed.Electronically Signed byPathology Report verified by [facility] HealthcareElectronically signed by RAYRAY RIVER DOSign out Date: 04/24/2018 13:28Performing Lab: [facility], [address] [place] [id number] [facility] Normal [facility] ([place] Comment on above: Performed By: #### S PFR ####[facility] [place] [id number] [facility] ENDO Procedure Recordon 04-22-2018 Protein mass conc Normal [facility] ([place]) Depart Summaryon 04-22-2018 Depart Summary Normal [facility] ([place] History and Physicalon 04-22 History and Physical Normal [facility] Patient Summaryon 04-22-2018 [facility] Patient Summary Normal [facility] ([place] Vital Signs Date Time Vital Sign Value Performing Clinician Facility 11-07-2024 13:22-0400 Body temperature 97 [degF] Dr. Jannet Dey MD Work Phone: [facility] 11-07-2024 13:22-0400 Diastolic blood pressure 77 mm[Hg] Dr. Jannet ritter MD Work Phone: [facility] 11-07-2024 13:22-0400 Heart rate 58 /min Dr. Jannet Dey MD Work Phone: [facility] 11-07-2024 13:22-0400 Respiratory rate 16 /min Dr. Jannet Dey MD Work Phone: [facility] 11-07-2024 13:22-0400 SaO2% (BldA) [Mass fraction] 95 % Dr. Jannet Dey MD Work Phone: [facility] 11-07-2024 13:22-0400 Systolic blood pressure 127 mm[Hg] Dr. Jannet blackburn MD Work Phone: [facility] 11-07-2024 12:02-0400 Body height 167.[address] Jannet Dey MD Work Phone: [facility] 11-07-2024 12:02-0400 Body mass index (BMI) [Ratio] 23.1 kg/m2 Dr. Jannet Dey MD Work Phone: [facility] 11-07-2024 12:02-0400 Body weight 65.[address] Jannet Dey MD Work Phone: [facility] 10-27-2024 08:35-0400 Body mass index (BMI) [Ratio] 24.3 kg/m2 Dr. Jannet Dey MD Work Phone: [facility] 10-27-2024 08:35-0400 Body temperature 98.4 [degF] Dr. Jannet Dey MD Work Phone: [facility] 10-27-2024 08:35-0400 Body weight 68.[address] Jannet Dey MD Work Phone: [facility] 10-27-2024 08:35-0400 Diastolic blood pressure 82 mm[Hg] Dr. Jannet ritter MD Work Phone: [facility] 10-27-2024 08:35-0400 Heart rate 71 /min Dr. Jannet Dey MD Work Phone: [facility] 10-27-2024 08:35-0400 Respiratory rate 16 /min Dr. Jannet Dey MD Work Phone: [facility] 10-27-2024 08:35-0400 SaO2% (BldA) [Mass fraction] 94 % Dr. Jannet Dey MD Work Phone: [facility] 10-27-2024 08:35-0400 Systolic blood pressure 150 mm[Hg] Dr. Jannet blackburn MD Work Phone: [facility] 10-23-2024 07:34-0400 Body temperature 98.2 [degF] Dr. Jannet Dey MD Work Phone: [facility] 10-23-2024 07:34-0400 Diastolic blood pressure 98 mm[Hg] Dr. Jannet ritter MD Work Phone: [facility] 10-23-2024 07:34-0400 Heart rate 79 /min Dr. Jannet Dey MD Work Phone: [facility] 10-23-2024 07:34-0400 Respiratory rate 17 /min Dr. Jannet Dey MD Work Phone: [facility] 10-23-2024 07:34-0400 SaO2% (BldA) [Mass fraction] 97 % Dr. Jannet Dey MD Work Phone: [facility] 10-23-2024 07:34-0400 Systolic blood pressure 154 mm[Hg] Dr. Jannet blackburn MD Work Phone: [facility] 10-14-2024 11:29-0400 Body temperature 98.2 [degF] Dr. Jannet Dey MD Work Phone: [facility] 10-14-2024 11:29-0400 Diastolic blood pressure 108 mm[Hg] Dr. Jannet ritter MD Work Phone: [facility] 10-14-2024 11:29-0400 Heart rate 75 /min Dr. Jannet Dey MD Work Phone: [facility] 10-14-2024 11:29-0400 Respiratory rate 17 /min Dr. Jannet Dey MD Work Phone: [facility] 10-14-2024 11:29-0400 SaO2% (BldA) [Mass fraction] 91 % Dr. Jannet Dey MD Work Phone: [facility] 10-14-2024 11:29-0400 Systolic blood pressure 159 mm[Hg] Dr. Jannet blackburn MD Work Phone: [facility] 10-14-2024 10:50-0400 Body height 167.[address] Jannet Dey MD Work Phone: [facility] 10-14-2024 10:50-0400 Body weight [address] Jannet Dey MD Work Phone: [facility] 10-14-2024 02:28-0400 Inhaled oxygen flow rate 2 L/min Dr. Jannet rtiter MD Work Phone: [facility] 10-12-2024 19:44-0400 Inhaled oxygen concentration 21 % Dr. Jannet Dey MD Work Phone: [facility] 10-11-2024 06:29-0400 Body mass index (BMI) [Ratio] 23.5 kg/m2 Dr. Jannet Dey MD Work Phone: [facility] 10-11-2024 05:59-0400 Body temperature 98.6 [degF] Dr. Jannet Dey MD Work Phone: [facility] 10-11-2024 05:59-0400 Diastolic blood pressure 50 mm[Hg] Dr. Jannet ritter MD Work Phone: [facility] 10-11-2024 05:59-0400 Heart rate 82 /min Dr. Jannet Dey MD Work Phone: [facility] 10-11-2024 05:59-0400 Respiratory rate 20 /min Dr. Jannet Dey MD Work Phone: [facility] 10-11-2024 05:59-0400 SaO2% (BldA) [Mass fraction] 92 % Dr. Jannet Dey MD Work Phone: [facility] 10-11-2024 05:59-0400 Systolic blood pressure 111 mm[Hg] Dr. Jannet blackburn MD Work Phone: [facility] 10-11-2024 04:48-0400 Inhaled oxygen flow rate 4 L/min Dr. Jannet ritter MD Work Phone: [facility] 10-11-2024 03:43-0400 Body height 167.[address] Jannet Dey MD Work Phone: [facility] 10-11-2024 03:43-0400 Body mass index (BMI) [Ratio] 23.6 kg/m2 Dr. Jannet Dey MD Work Phone: [facility] 10-11-2024 03:43-0400 Body weight 66.[address] Jannet Dey MD Work Phone: [facility] 10-08-2024 12:10-0400 Body mass index (BMI) [Ratio] 23.63 kg/m2 Yobani Lester MD Work Phone: [facility] 10-08-2024 12:10-0400 Body weight 66.4 kg Yobani Lester MD Work Phone: [facility] 10-08-2024 12:10-0400 Diastolic blood pressure 82 mm[Hg] Yobani Lester MD Work Phone: [facility] 10-08-2024 12:10-0400 Heart rate 57 /min Yobani Lester MD Work Phone: [facility] 10-08-2024 12:10-0400 SaO2% (BldA) [Mass fraction] 95 % Yobani Lester MD Work Phone: [facility] 10-08-2024 12:10-0400 Systolic blood pressure 139 mm[Hg] Yobani Vargas Work Phone: [facility] 09-10-2024 13:33-0400 Body height 167.[address] Jannet Dey MD Work Phone: [facility] 09-10-2024 13:33-0400 Body mass index (BMI) [Ratio] 24.1 kg/m2 Dr. Jannet Dey MD Work Phone: [facility] 09-10-2024 13:33-0400 Body temperature 98.2 [degF] Dr. Jannet Dey MD Work Phone: [facility] 09-10-2024 13:33-0400 Body weight 67.[address] Jannet Dey MD Work Phone: [facility] 09-10-2024 13:33-0400 Diastolic blood pressure 99 mm[Hg] Dr. Jannet ritter MD Work Phone: [facility] 09-10-2024 13:33-0400 Heart rate 69 /min Dr. Jannet Dey MD Work Phone: [facility] 09-10-2024 13:33-0400 Respiratory rate 16 /min Dr. Jannet Dey MD Work Phone: [facility] 09-10-2024 13:33-0400 SaO2% (BldA) [Mass fraction] 93 % Dr. Jannet Dey MD Work Phone: [facility] 09-10-2024 13:33-0400 Systolic blood pressure 188 mm[Hg] Dr. Jannet blackburn MD Work Phone: [facility] 09-07-2024 15:21-0400 Body temperature 98.1 [degF] Dr. Jannet Dey MD Work Phone: [facility] 09-07-2024 15:21-0400 Diastolic blood pressure 75 mm[Hg] Dr. Jannet ritter MD Work Phone: [facility] 09-07-2024 15:21-0400 Heart rate 53 /min Dr. Jannet Dey MD Work Phone: [facility] 09-07-2024 15:21-0400 Respiratory rate 18 /min Dr. Jannet Dey MD Work Phone: [facility] 09-07-2024 15:21-0400 SaO2% (BldA) [Mass fraction] 94 % Dr. Jannet Dey MD Work Phone: [facility] 09-07-2024 15:21-0400 Systolic blood pressure 117 mm[Hg] Dr. Jannet blackburn MD Work Phone: [facility] 09-07-2024 11:50-0400 Inhaled oxygen flow rate 2 L/min Dr. Jannet ritter MD Work Phone: [facility] 09-07-2024 10:37-0400 Body height 167.[address] Jannet Dey MD Work Phone: [facility] 09-07-2024 10:37-0400 Body weight 72.[address] Jannet Dey MD Work Phone: [facility] 09-06-2024 18:08-0400 Body mass index (BMI) [Ratio] 25.7 kg/m2 Dr. Jannet Dey MD Work Phone: [facility] 09-06-2024 16:04-0400 Body temperature 97.9 [degF] Dr. Jannet Dey MD Work Phone: [facility] 09-06-2024 16:04-0400 Diastolic blood pressure 85 mm[Hg] Dr. Jannet ritter MD Work Phone: [facility] 09-06-2024 16:04-0400 Heart rate 76 /min Dr. Jannet Dey MD Work Phone: [facility] 09-06-2024 16:04-0400 Respiratory rate 16 /min Dr. Jannet Dey MD Work Phone: [facility] 09-06-2024 16:04-0400 SaO2% (BldA) [Mass fraction] 95 % Dr. Jannet Dey MD Work Phone: [facility] 09-06-2024 16:04-0400 Systolic blood pressure 93 mm[Hg] Dr. Jannet blackburn MD Work Phone: [facility] 09-06-2024 14:27-0400 Inhaled oxygen flow rate 2 L/min Dr. Jannet ritter MD Work Phone: [facility] 09-06-2024 11:29-0400 Body height 167.[address] Jannet Dey MD Work Phone: [facility] 09-06-2024 11:29-0400 Body mass index (BMI) [Ratio] 24.2 kg/m2 Dr. Jannet Dey MD Work Phone: [facility] 09-06-2024 11:29-0400 Body weight 68.[address] Jannet Dey MD Work Phone: [facility] 07-28-2024 11:01-0500 Body mass index (BMI) [Ratio] 25 kg/m2 Dr. Jannet Dey MD Work Phone: [facility] 07-28-2024 11:01-0500 Body temperature 98 [degF] Dr. Jannet Dey MD Work Phone: [facility] 07-28-2024 11:01-0500 Body weight 70.[address] Jannet Dey MD Work Phone: [facility] 07-28-2024 11:01-0500 Diastolic blood pressure 88 mm[Hg] Dr. Jannet ritter MD Work Phone: [facility] 07-28-2024 11:01-0500 Heart rate 72 /min Dr. Jannet Dey MD Work Phone: [facility] 07-28-2024 11:01-0500 Respiratory rate 16 /min Dr. Jannet Dey MD Work Phone: [facility] 07-28-2024 11:01-0500 SaO2% (BldA) [Mass fraction] 94 % Dr. Jannet Dey MD Work Phone: [facility] 07-28-2024 11:01-0500 Systolic blood pressure 158 mm[Hg] Dr. Jannet blackburn MD Work Phone: [facility] 07-09-2024 11:57-0500 Diastolic blood pressure 86 mm[Hg] Cassy Ko APRN.STREET ENGINEER Work Phone: [facility] 07-09-2024 11:57-0500 Heart rate 86 /min Cassy Ko APRN.STREET ENGINEER Work Phone: [facility] 07-09-2024 11:57-0500 Systolic blood pressure 129 mm[Hg] Cassy Maikel PAGE Work Phone: [facility] 06-30-2024 11:18-0500 Body mass index (BMI) [Ratio] 24.7 kg/m2 Dr. Jannet Dey MD Work Phone: [facility] 06-30-2024 11:18-0500 Body temperature 98 [degF] Dr. Jannet Dey MD Work Phone: [facility] 06-30-2024 11:18-0500 Body weight 69.[address] Jannet Dey MD Work Phone: [facility] 06-30-2024 11:18-0500 Diastolic blood pressure 82 mm[Hg] Dr. Jannet ritter MD Work Phone: [facility] 06-30-2024 11:18-0500 Heart rate 85 /min Dr. Jannet Dey MD Work Phone: [facility] 06-30-2024 11:18-0500 Inhaled oxygen flow rate 3 L/min Dr. Jannet ritter MD Work Phone: [facility] 06-30-2024 11:18-0500 Respiratory rate 16 /min Dr. Jannet Dey MD Work Phone: [facility] 06-30-2024 11:18-0500 SaO2% (BldA) [Mass fraction] 95 % Dr. Jannet Dey MD Work Phone: [facility] 06-30-2024 11:18-0500 Systolic blood pressure 130 mm[Hg] Dr. Jannet blackburn MD Work Phone: [facility] 06-09-2024 10:37-0500 Body mass index (BMI) [Ratio] 25.9 kg/m2 Dr. Jannet Dey MD Work Phone: [facility] 06-09-2024 10:37-0500 Body temperature 98.2 [degF] Dr. Jannet Dey MD Work Phone: [facility] 06-09-2024 10:37-0500 Body weight 72.[address] Jannet Dey MD Work Phone: [facility] 06-09-2024 10:37-0500 Diastolic blood pressure 71 mm[Hg] Dr. Jannet ritter MD Work Phone: [facility] 06-09-2024 10:37-0500 Heart rate 78 /min Dr. Jannet Dey MD Work Phone: [facility] 06-09-2024 10:37-0500 Inhaled oxygen flow rate 3 L/min Dr. Jannet ritter MD Work Phone: [facility] 06-09-2024 10:37-0500 Respiratory rate 16 /min Dr. Jannet Dey MD Work Phone: [facility] 06-09-2024 10:37-0500 SaO2% (BldA) [Mass fraction] 93 % Dr. Jannet Dey MD Work Phone: [facility] 06-09-2024 10:37-0500 Systolic blood pressure 114 mm[Hg] Dr. Jannet blackburn MD Work Phone: [facility] 05-28-2024 10:40-0500 SaO2% (BldA) [Mass fraction] 98 % YOBANI [facility] Comment on above: Order Comment: Specimen Type: ARTERIAL B LOOD SPECIMENOrdering Facility: [facility] Address: [address] [place] [address] Performed By: #### A LLBG ####[facility] LABCLIA [id number] [place] [address] [place] 05-28-2024 07:23-0500 SaO2% (BldA) [Mass fraction] 96 % YOBANI [facility] Comment on above: Order Comment: Specimen Type: ARTERIAL B LOOD SPECIMENOrdering Facility: [facility] Address: [address] [place], [place] [id number] Performed By: #### A LLBG ####[facility] LABIA [id number] [place] [id number] [place] 05-28-2024 03:14-0500 SaO2% (BldA) [Mass fraction] 98 % YOBANI MALDONADOUTO [facility] Comment on above: Order Comment: Specimen Type: ARTERIAL B LOOD SPECIMENOrdering Facility: [facility] Address: [address] [place], [place] [id number] Performed By: #### A LLBG ####[facility] [id number] [place] [id number] [place] 05-28-2024 01:10-0500 SaO2% (BldA) [Mass fraction] 98 % YOBANI MALDONADOUTO [facility] Comment on above: Order Comment: Specimen Type: ARTERIAL B LOOD SPECIMENOrdering Facility: [facility] Address: [address] [place] [address] Performed By: #### A LLBG ####[facility] [id number] [place] [id number] [place] 05-27-2024 23:14-0500 SaO2% (BldA) [Mass fraction] 99 % YOBANI MALDONADOUTO [facility] Comment on above: Order Comment: Specimen Type: ARTERIAL B LOOD SPECIMENOrdering Facility: [facility] Address: [address] [place], [place] [id number] Performed By: #### A LLBG ####[facility] [id number] [place] [id number] [place] 05-27-2024 21:17-0500 SaO2% (BldA) [Mass fraction] 98 % YOBANI [facility] Comment on above: Order Comment: Specimen Type: ARTERIAL B LOOD SPECIMENOrdering Facility: [facility] Address: [address] [place], [place] [id number] Performed By: #### A LLBG ####[facility] LABCLIA [id number] [place] [id number] [place] 05-27-2024 19:33-0500 SaO2% (BldA) [Mass fraction] 98 % YOBANI MALDONADOUTO [facility] Comment on above: Order Comment: Specimen Type: ARTERIAL B LOOD SPECIMENOrdering Facility: [facility] Address: [address] [place] [address] Performed By: #### A LLBG ####[facility] LABCLIA [id number] [address] [place] 05-27-2024 18:15-0500 SaO2% (BldA) [Mass fraction] 99 % YOBANI [facility] Comment on above: Order Comment: Specimen Type: ARTERIAL B LOOD SPECIMENOrdering Facility: [facility] Address: [address] [place] [address] Performed By: #### A LLBG ####[facility] LABIA [id number] [address] [place] 05-27-2024 17:07-0500 SaO2% (BldA) [Mass fraction] 99 % YOBANI TAYLER [facility] Comment on above: Order Comment: Specimen Type: ARTERIAL B LOOD SPECIMENOrdering Facility: [facility] Address: [address] [place] [address] Performed By: #### A LLBG ####[facility] LABCLIA [id number] [place] [id number] [place] 05-27-2024 15:51-0500 SaO2% (BldA) [Mass fraction] 99 % YOBANI [facility] Comment on above: Order Comment: Specimen Type: ARTERIAL B LOOD SPECIMENOrdering Facility: [facility] Address: [address] [place] [address] Performed By: #### A LLBG ####[facility] LABIA [id number] [place] [id number] [place] 05-27-2024 14:51-0500 SaO2% (BldA) [Mass fraction] 100 % [facility] Comment on above: Order Comment: Specimen Type: ARTERIAL B LOOD SPECIMENOrdering Facility: [facility] Address: [address] [place] [address] Performed By: #### A LLMG ####[facility] [id number] [place] [id number] [place] 05-27-2024 13:54-0500 SaO2% (BldA) [Mass fraction] 100 % YOBANI [facility] Comment on above: Order Comment: Specimen Type: ARTERIAL B LOOD SPECIMENOrdering Facility: [facility] Address: [address] [place] [address] Performed By: #### A LLMG ####[facility] [id number] [place] [id number] [place] 05-27-2024 13:24-0500 SaO2% (BldA) [Mass fraction] 100 % YOBANI [facility] Comment on above: Order Comment: Specimen Type: ARTERIAL B LOOD SPECIMENOrdering Facility: [facility] Address: [address] [place] [address] Performed By: #### A LLMG ####[facility] [id number] [place] [id number] [place] 05-27-2024 12:57-0500 SaO2% (BldA) [Mass fraction] 100 % YOBANI [facility] Comment on above: Order Comment: Specimen Type: ARTERIAL B LOOD SPECIMENOrdering Facility: [facility] Address: [address] [place] [address] Performed By: #### A LLMG ####[facility] [id number] [place] [id number] [place] 05-27-2024 12:33-0500 SaO2% (BldA) [Mass fraction] 99 % [facility] Comment on above: Order Comment: Specimen Type: ARTERIAL B LOOD SPECIMENOrdering Facility: [facility] Address: [address] [place], [place] [id number] Performed By: #### A LLMG ####[facility] LABIA [id number] [place] [id number] [place] 05-27-2024 12:08-0500 SaO2% (BldA) [Mass fraction] 99 % YOBANI [facility] Comment on above: Order Comment: Specimen Type: ARTERIAL B LOOD SPECIMENOrdering Facility: [facility] Address: [address] [place] [address] Performed By: #### A LLMG ####[facility] LABIA [id number] [place] [id number] [place] 05-27-2024 11:38-0500 SaO2% (BldA) [Mass fraction] 100 % YOBANI [facility] Comment on above: Order Comment: Specimen Type: ARTERIAL B LOOD SPECIMENOrdering Facility: [facility] Address: [address] [place] [address] Performed By: #### A LLMG ####[facility] LABIA [id number] [place] [id number] [place] 05-27-2024 11:09-0500 SaO2% (BldA) [Mass fraction] 100 % [facility] Comment on above: Order Comment: Specimen Type: ARTERIAL B LOOD SPECIMENOrdering Facility: [facility] Address: [address] [place] [address] Performed By: #### A LLMG ####[facility] LABIA [id number] [place] [id number] [place] 05-27-2024 10:50-0500 SaO2% (BldA) [Mass fraction] 100 % [facility] Comment on above: Order Comment: Specimen Type: ARTERIAL B LOOD SPECIMENOrdering Facility: [facility] Address: [address] [place] [address] Performed By: #### A LLMG ####[facility] LABCLIA [id number] [place] [id number] [facility] 05-27-2024 10:32-0500 SaO2% (BldA) [Mass fraction] 99 % [facility] Comment on above: Order Comment: Specimen Type: ARTERIAL B LOOD SPECIMENOrdering Facility: [facility] Address: [address] [place] [address] Performed By: #### A LLMG ####[facility] LABIA [id number] [address] [place] 05-27-2024 10:15-0500 SaO2% (BldA) [Mass fraction] 100 % [facility] Comment on above: Order Comment: Specimen Type: ARTERIAL B LOOD SPECIMENOrdering Facility: [facility] Address: [address] [place] [address] Performed By: #### A LLMG ####[facility] LABIA [id number] [place] [id number] [place] 05-27-2024 09:55-0500 SaO2% (BldA) [Mass fraction] 100 % YOBANI [facility] Comment on above: Order Comment: Specimen Type: ARTERIAL B LOOD SPECIMENOrdering Facility: [facility] Address: [address] [place] [address] Performed By: #### A LLMG ####[facility] LABIA [id number] [place] [id number] [place] 05-27-2024 07:25-0500 SaO2% (BldA) [Mass fraction] 98 % [facility] Comment on above: Order Comment: Specimen Type: ARTERIAL B LOOD SPECIMENOrdering Facility: [facility] Address: [address] [place] [address] Performed By: #### A LLMG ####[facility] LABCLIA [id number] OMOKIESam HERNANDEZ [id number] [place] [address] [place] 05-05-2024 09:02-0500 Body height 167.6 cm Kaye Case APRN.STREET ENGINEER Work Phone: [facility] 05-05-2024 09:02-0500 Body mass index (BMI) [Ratio] 26.37 kg/m2 Kaye Case APRN.STREET ENGINEER Work Phone: [facility] 05-05-2024 09:02-0500 Body temperature 97.3 [degF] Kyae Case APRN.STREET ENGINEER Work Phone: [facility] 05-05-2024 09:02-0500 Body weight 74.1 kg Kaye Case APRN.STREET ENGINEER Work Phone: [facility] 05-05-2024 09:02-0500 Diastolic blood pressure 82 mm[Hg] Kaye Case APRN.STREET ENGINEER Work Phone: [facility] 05-05-2024 09:02-0500 Heart rate 75 /min Kaye Case APRN.STREET ENGINEER Work Phone: [facility] 05-05-2024 09:02-0500 Respiratory rate 16 /min Kaye Case APRN.STREET ENGINEER Work Phone: [facility] 05-05-2024 09:02-0500 SaO2% (BldA) [Mass fraction] 94 % Kaye Case APRN.STREET ENGINEER Work Phone: [facility] 05-05-2024 09:02-0500 Systolic blood pressure 134 mm[Hg] Kaye Case APRN.STREET ENGINEER Work Phone: [facility] 04-03-2024 09:58-0400 Diastolic blood pressure 90 mm[Hg] Yobani Lester MD Work Phone: [facility] 04-03-2024 09:58-0400 Heart rate 71 /min Yobani Lester MD Work Phone: [facility] 04-03-2024 09:58-0400 Systolic blood pressure 155 mm[Hg] Yobani Martinez D Work Phone: [facility] 10-03-2023 10:50-0400 Body height 167.6 cm Yobani Lester MD Work Phone: [facility] 10-03-2023 10:50-0400 Body temperature 97.5 [degF] Yobani Lester MD Work Phone: [facility] 10-03-2023 10:50-0400 Body weight 76.16 kg Yobani Lester MD Work Phone: [facility] 10-03-2023 10:50-0400 Diastolic blood pressure 75 mm[Hg] Yobani Lester MD Work Phone: [facility] 10-03-2023 10:50-0400 Heart rate 60 /min Yobani Lester MD Work Phone: [facility] 10-03-2023 10:50-0400 Respiratory rate 18 /min Yobani Lester MD Work Phone: [facility] 10-03-2023 10:50-0400 SaO2% (BldA) [Mass fraction] 94 % Yobani Lester MD Work Phone: [facility] 10-03-2023 10:50-0400 Systolic blood pressure 118 mm[Hg] Yobani Vargas Work Phone: [facility] 10-25-2022 05:21-0400 Diastolic blood pressure 70 mm[Hg] Dr. Jannet ritter Work Phone: [facility] 10-25-2022 05:21-0400 Respiratory rate 18 /min Dr. Jannet Dey Work Phone: [facility] 10-25-2022 05:21-0400 SaO2% (BldA) [Mass fraction] 95 % Dr. Jannet Dey Work Phone: [facility] 10-25-2022 05:21-0400 Systolic blood pressure 137 mm[Hg] Dr. Jannet blackburn Work Phone: [facility] 10-25-2022 00:31-0400 Body height 167.[address] Jannet Dey Work Phone: [facility] 10-25-2022 00:31-0400 Body mass index (BMI) [Ratio] 25.8 kg/m2 Dr. Jannet Dey Work Phone: [facility] 10-25-2022 00:31-0400 Body temperature 96.3 [degF] Dr. Jannet Dey Work Phone: [facility] 10-25-2022 00:31-0400 Body weight 72.[address] Jannet Dey Work Phone: [facility] 10-25-2022 00:31-0400 Heart rate 82 /min Dr. Jannet Dey Work Phone: [facility] 10-10-2022 12:42-0400 Body mass index (BMI) [Ratio] 27.4 kg/m2 Dr. Jannet Dey Work Phone: [facility] 10-10-2022 12:42-0400 Body temperature 97.2 [degF] Dr. Jannet Dey Work Phone: [facility] 10-10-2022 12:42-0400 Body weight 77.[address] Jannet Dey Work Phone: [facility] 10-10-2022 12:42-0400 Diastolic blood pressure 80 mm[Hg] Dr. Jannet ritter Work Phone: [facility] 10-10-2022 12:42-0400 Heart rate 87 /min Dr. Jannet Dey Work Phone: [facility] 10-10-2022 12:42-0400 Respiratory rate 16 /min Dr. Jannet Dey Work Phone: [facility] 10-10-2022 12:42-0400 SaO2% (BldA) [Mass fraction] 93 % Dr. Jannet Dey Work Phone: [facility] 10-10-2022 12:42-0400 Systolic blood pressure 142 mm[Hg] Dr. Jannet blackburn Work Phone: [facility] 08-03-2022 14:55-0500 Body temperature 97.4 [degF] Dr. Jannet Dey Work Phone: [facility] 08-03-2022 14:55-0500 Body weight 75.[address] Jannet Dey Work Phone: [facility] 08-03-2022 14:55-0500 Diastolic blood pressure 85 mm[Hg] Dr. Jannet ritter Work Phone: [facility] 08-03-2022 14:55-0500 Heart rate 79 /min Dr. Jannet Dey Work Phone: [facility] 08-03-2022 14:55-0500 Respiratory rate 16 /min Dr. Jannet Dey Work Phone: [facility] 08-03-2022 14:55-0500 SaO2% (BldA) [Mass fraction] 93 % Dr. Jannet Dey Work Phone: [facility] 08-03-2022 14:55-0500 Systolic blood pressure 134 mm[Hg] Dr. Jannet blackburn Work Phone: [facility] 08-01-2022 11:00-0500 Body temperature 97.1 [degF] Dr. Jannet Dey Work Phone: [facility] 08-01-2022 11:00-0500 Diastolic blood pressure 84 mm[Hg] Dr. Jannet ritter Work Phone: [facility] 08-01-2022 11:00-0500 Heart rate 82 /min Dr. Jannet Dey Work Phone: [facility] 08-01-2022 11:00-0500 Respiratory rate 17 /min Dr. Jannet Dey Work Phone: [facility] 08-01-2022 11:00-0500 SaO2% (BldA) [Mass fraction] 95 % Dr. Jannet Dey Work Phone: [facility] 08-01-2022 11:00-0500 Systolic blood pressure 122 mm[Hg] Dr. Jannet blackburn Work Phone: [facility] 03-01-2022 11:32-0400 Body temperature 98.2 [degF] Dr. Jannet Dey Work Phone: [facility] Work Phone: 03-01-2022 11:32-0400 Diastolic blood pressure 78 mm[Hg] Dr. Jannet ritter Work Phone: [facility] Work Phone: 03-01-2022 11:32-0400 Heart rate 87 /min Dr. Jannet Dey Work Phone: [facility] Work Phone: 03-01-2022 11:32-0400 Respiratory rate 16 /min Dr. Jannet Dey Work Phone: [facility] Work Phone: 03-01-2022 11:32-0400 SaO2% (BldA) [Mass fraction] 97 % Dr. Jannet Dey Work Phone: [facility] Work Phone: 03-01-2022 11:32-0400 Systolic blood pressure 134 mm[Hg] Dr. Jannet blackburn Work Phone: [facility] Work Phone: 02-20-2022 10:29-0400 Body temperature 97.8 [degF] Dr. Jannet Dey Work Phone: [facility] Work Phone: 02-20-2022 10:29-0400 Diastolic blood pressure 66 mm[Hg] Dr. Jannet ritter Work Phone: [facility] Work Phone: 02-20-2022 10:29-0400 Heart rate 79 /min Dr. Jannet Dey Work Phone: [facility] Work Phone: 02-20-2022 10:29-0400 Respiratory rate 16 /min Dr. Jannet Dey Work Phone: [facility] Work Phone: 02-20-2022 10:29-0400 SaO2% (BldA) [Mass fraction] 96 % Dr. Jannet Dey Work Phone: [facility] Work Phone: 02-20-2022 10:29-0400 Systolic blood pressure 112 mm[Hg] Dr. Jannet Clement Work Phone: [facility] Work Phone: Encounters Encounter Date Encounter Type Care Provider Facility Start: 11-13-2024 End: 11-13-2024 ambulatory Jannet Dey Facility:[facility] Start: 11-07-2024 End: 11-07-2024 Emergency department patient visit Dr. Jannet Dey MD Work Phone: -Emergency Department Work Phone: Start: 10-27-2024 End: 10-27-[address] Jannet Dey MD -[facility] Work Phone: Start: 10-27-2024 End: 10-27-2024 ambulatory Jannet Dey Facility:[facility] Start: 10-23-2024 End: 10-23-2024 Patient encounter procedure Isrrael Amaral [facility] -[facility] Work Phone: Start: 10-23-2024 End: 10-23-2024 ambulatory Jannet Dey Facility:[facility] Start: 10-14-2024 Non-patient / Non-visit Dr. Gabriela Contreras [facility] Work Phone: Start: 10-14-2024 Non-patient / Non-visit Dr. Collin VALDES -[facility] Start: 10-13-2024 Non-patient / Non-visit Dr. Gabriela Contreras DO [facility] Inpatient Physicians Work Phone: Start: 10-13-2024 Non-patient / [facility] Start: 10-12-2024 Non-patient / Non-visit Dr. Estrella Boston MD [facility] Inpatient Physicians Work Phone: Start: 10-11-2024 ambulatory Jannet Dey Facility :[facility] Start: 10-11-2024 Non-patient / Non-[facility]ina [facility] Start: 10-11-2024 ambulatory Gabriela Ben [facility] Start: 10-11-2024 End: 10-14-2024 Evaluation and management of inpatient Dr. Nikolai Mejia [facility] Work Phone: Start: 10-08-2024 End: 10-08-2024 Patient encounter procedure Yobani Lester MD Work Phone: Vascular Surg Dept Comment on above: Abdominal aortic ane urysm (AAA) without rupture, unspecified part (Primary Dx) Start: 10-08-2024 End: 10-08-2024 ambulatory YOBANI LESTER Facility:[facility] Start: 09-10-2024 End: 09-10-[address] Jannet Dey MD -[facility] Work Phone: Start: 09-10-2024 End: 09-10-2024 ambulatory Jannet Dey Facility[facility] Start: 09-07-2024 Non-patient / [facility] Start: 09-06-2024 End: 09-07-2024 ambulatory Yang Smiley Facility:[facility] Start: 09-06-2024 End: 09-07-2024 Evaluation and management of inpatient Dr. Yang Smiley MD -Medical Surgical 3 Work Phone: Start: 09-06-2024 End: 09-07-[address] Jannet Dey MD Work Phone: [facility] Work Phone: Start: 09-06-2024 Non-patient / Non-visit Dr. Collin VALDES -[facility] Start: 09-06-2024 Admission to [facility] Dr. Yang Smiley MD -[facility] Inpatients Work Phone: Start: 09-06-[address] Jannet kelly MD Work Phone: [facility] Work Phone: Start: 09-03-2024 End: 09-03-[address] Jannet Dey MD Work Phone: [facility] Work Phone: Start: 09-03-2024 End: 09-03-[address] Ilia Odom MD -Cardiovascular Services Work Phone: Start: 09-03-2024 End: 09-03-2024 ambulatory Ilia Odom Facility:[facility] Start: 07-28-2024 End: 07-28-[address] Jannet Dey MD -[facility] Work Phone: Start: 07-28-2024 End: 07-28-2024 ambulatory Jannet Dey Facility[facility] Start: 07-17-2024 End: 07-17-[address] 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 Jannet Dey MD -Laboratory, [place] Work Phone: Start: 06-30-2024 End: 06-30-[address] Jannet Dey MD -[facility] Work Phone: Start: 06-30-2024 End: 06-30-2024 ambulatory [facility] Facility:[facility] Start: 06-30-2024 End: 06-30-2024 ambulatory [facility] Facility[facility] Start: 06-09-2024 End: 06-09-[address] Jannet Dey MD -[facility] [employer] [employer] Work Phone: Start: 06-09-2024 End: 06-09-2024 ambulatory [facility] Facility:[facility] Start: 06-06-2024 End: 06-06-2024 Telephone encounter Yuri Louise RN NOC Comment on above: Follow Up Phone Call ([facility] post discharge follow-up - contacted - all clear ) Start: 06-05-2024 End: 06-05-2024 Telephone encounter Yuri Louise RN NOC Comment on above: Follow Up Phone Call (RC f/u discharge 1st attempt LVM /) Start: 05-27-2024 End: 06-04-2024 Evaluation and management of inpatient [facility] Facility:[facility] Start: 05-26-2024 End: 05-26-2024 Telephone encounter Yobani Lester MD Work Phone: Vascular Surg Dept Comment on above: Appointment Start: 05-05-2024 Encounter for other preprocedural examination YOBANI LESTER [facility] Start: 05-05-2024 End: 05-05-2024 ambulatory [facility] Facility:[facility] Start: 05-05-2024 End: 05-05-2024 Subsequent hospital visit by physician Card Injection Molecular Imaging Comment on above: 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) [I71.41] Start: 05-05-2024 End: 05-05-2024 [facility] Facility:[facility] Start: 05-05-2024 End: 05-05-2024 Patient encounter status Kaye Case APRN.STREET ENGINEER Work Phone: [facility] Start: 05-05-2024 End: 05-05-2024 Preprocedural examination done Kaye Case APRN.STREET ENGINEER Work Phone: [facility] Work Phone: Start: 05-05-2024 End: 05-05-2024 Admission to same day surgery center Anesthesia Clearance Work Phone: [facility] Work Phone: Start: 05-05-2024 End: 05-05-2024 [facility] Facility:[facility] Start: 05-05-2024 End: 05-05-2024 Patient encounter procedure Anesthesia Clearance Work Phone: Cardiothoracic Comment on above: Encounter for preope rative anesthesiology assessment for vascular surgery (Primary Dx) Pre-op exam (Primary Dx); Pre-op testing; 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); Iliac aneurysm (HCC); Rash; Aspirin long-term use; Tobacco abuse; Alcohol abuse 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) Start: 05-01-2024 End: 05-01-2024 ambulatory Jannet Gouldchner Facility:[facility] Start: 04-29-2024 End: 04-29-2024 Orders Only Yobani Lester MD Work Phone: Vascular Surg Dept Comment on above: 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) (Primary Dx); Encounter for screening for cardiovascular disorders; Preop testing Start: 04-29-2024 End: 04-29-2024 Patient encounter status Yobani Lester MD Work Phone: [facility] Start: 04-03-2024 End: 04-03-2024 Patient encounter procedure Yobani Lestre MD Work Phone: Vascular Surg Dept Comment on above: 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) (Primary Dx) Start: 04-03-2024 End: 04-03-2024 ambulatory YOBANI LESTER Facility:[facility] Start: 04-03-2024 End: 04-03-2024 Subsequent hospital visit by physician Angeli Main F30 (I-Stat) Work Phone: Radiology Start: 10-03-2023 End: 10-03-2023 Patient encounter procedure Yobani Lester MD Work Phone: Vascular Surg Dept Comment on above: History of thoracoab dominal aortic aneurysm (TAAA) (Primary Dx); Iliac aneurysm (HCC); Elevated hemoglobin (HCC) History of thoracoab dominal aortic aneurysm (TAAA) (Primary Dx); Iliac aneurysm (HCC) Start: 09-12-2023 Orders Only Yobani tam MD Work Phone: Vascular Surg Dept Comment on above: Abdominal aortic ane urysm (AAA) without rupture, unspecified part (HCC) (Primary Dx) Start: 07-02-2023 End: 07-02-2023 ambulatory [facility] Work Phone: Start: 07-02-2023 End: 07-02-2023 Patient encounter procedure [facility]-Cat Scan, [facility] Work Phone: Start: 06-11-2023 End: 06-11-2023 Patient encounter procedure [facility]-Cardiovascular Services Work Phone: Start: 10-25-2022 End: 10-25-2022 Emergency department patient visit Dr. Jannet Dey Work Phone: [facility]-Emergency Department Start: 10-10-2022 End: 10-10-[address] Jannet Dey Work Phone: [facility] Start: 08-03-2022 End: 08-03-[address] Jannet Dey Work Phone: [facility] Start: 08-01-2022 End: 08-01-[address] Jannet Dey Work Phone: [facility] Start: 06-07-2022 End: 06-07-[address] Jannet Dey Work Phone: [facility] Work Phone: Start: 06-07-2022 End: 06-07-[address] Jannet Dey Work Phone: [facility] Start: 03-01-2022 End: 03-01-[address] Jannet Dey Work Phone: [facility] Start: 02-20-2022 End: 02-20-[address] Jannet Dey Work Phone: [facility] Start: 04-22-2018 End: 04-22-2018 Patient encounter procedure [facility]O [facility] Facility:[facility] Procedures Date Procedure Procedure Detail Performing Clinician Start: 11-07-[address] Jannet Dey MD Work Phone: Start: 11-07-2024 X-ray of chest, PA a nd lateral views Dr. Jannet Dey MD Work Phone: Start: 10-23-2024 X-ray of chest, PA a nd lateral views Dr. Jannet Dey MD Work Phone: Start: 10-14-[address] Jannet Dey MD Work Phone: Start: 10-14-2024 Serum inorganic phos phate measurement Dr. Jannet Dey MD Work Phone: Start: 10-13-2024 CT of abdomen and pe lvis with oral contrast Dr. Jannet Dey MD Work Phone: Start: 10-11-2024 Carbon dioxide measu rement, partial pressure Dr. Jannet Dey MD Work Phone: Start: 10-11-2024 Gases blood o2 satur ation only direct tommy Dr. Jannet Dey MD Work Phone: Start: 10-11-2024 Measurement of parti al pressure of oxygen in blood Dr. Jannet Dey MD Work Phone: Start: 10-11-[address] Jannet Dey MD Work Phone: Start: 10-11-[address] Jannet Dey MD Work Phone: Start: 10-11-2024 Legionella pneumophi la antigen assay Dr. Jannet Dey MD Work Phone: Start: 10-11-2024 SARS-CoV-2, Influenz a & RSV (PCR) Dr. Jannet Dey MD Work Phone: Start: 10-11-2024 Streptococcus pneumo niae antigen assay Dr. Jannet Dey MD Work Phone: Start: 10-11-2024 CT angiography of ch est with contrast Dr. Jannet Dey MD Work Phone: Start: 09-07-[address] Jannet Dey MD Work Phone: Start: 09-06-[address] Jannet Dey MD Work Phone: Start: 09-06-2024 Urnls dip stick/tabl et reagent auto microscopy Dr. Jannet Dey MD Work Phone: Start: 09-06-[address] Jannet Dey MD Work Phone: Start: 09-06-2024 Computed tomography of abdomen and pelvis with intravenous contrast Dr. Jannet Dey MD Work Phone: Start: 07-17-2024 CT of chest without contrast Dr. Jannet Dey MD Work Phone: Start: 06-30-2024 X-ray of chest, PA a nd lateral views Dr. Jannet Dey MD Work Phone: Start: 05-05-2024 Echocardiography ANGIE LESTER Start: 05-05-2024 Antibody screen YOBANI LESTER Comment on above: Order Comment: Speci men Type: BLOOD SPECIMENOrdering Facility: [facility] Address: [address] [place] [address] Performed By: #### T SCR30 ####CC MAIN BLOOD BANKCLIA [id number] [facility] [id number] OF [place] Start: 05-05-2024 Myocardial spect mul tiple studies Yobani Lester MD Work Phone: Start: 04-03-2024 Ct angio abd&plvis c ntrst mtrl w/wo cntrst img Yobani Lester MD Work Phone: Start: 04-03-2024 Ct angiography chest w/contrast/noncontrast Yobani Lester MD Work Phone: Start: 04-03-2024 Creatinine [Mass/vol ume] in Serum or Plasma [facility] Provider Start: 07-02-2023 Computed tomography angiography of abdominal and/or pelvic blood vessel Start: 10-25-2022 CT of head without contrast Dr. Jannet Dey Work Phone: Start: 10-25-2022 CT of soft tissues o f neck with contrast Dr. Jannet Dey Work Phone: Start: 06-07-2022 Computed tomography angiography of abdominal and/or pelvic blood vessel Dr. Jannet Dey Work Phone: Plan of Treatment Date Care Activity Detail Author Start: 12-27-2027 RSV Vaccine (1 - 1-dose 75+ series) RSV Vaccine (1 - 1-dose 75+ series) [facility] Start: 06-04-2027 Diabetes Screening Diabetes Screening [facility] Start: 05-05-2027 Diabetes Screening Diabetes Screening [facility] Start: 05-27-2025 End: 05-27-2025 Patient encounter procedure Radiology Comment on above: Abdominal aortic aneurysm (AAA) without rupture, unspecified part Start: 05-25-2025 End: 11-07-2025 CTA Abdominal vessels and Pelvis vessels WO and W contrast IV CTA ABD/PEL WO/W IVCON Radiology Routine Abdominal aortic aneurysm (AAA) without rupture, unspecified part Expected: 05/25/2025, Expires: 11/07/2025 [facility] Comment on above: Expected: 05/25/2025, Expires: Start: 05-25-2025 End: 11-07-2025 CTA Chest vessels WO and W contrast IV CTA CHEST (NONGATED) WO/W IVCON Radiology Routine Abdominal aortic aneurysm (AAA) without rupture, unspecified part Expected: 05/25/2025, Expires: 11/07/2025 [facility] Work Phone: Comment on above: Expected: 05/25/2025, Expires: Start: 11-07-2024 [facility] Start: 11-07-2024 [facility] Start: 10-14-2024 Patient discharge [facility] Start: 10-11-2024 Bacteria identified in Blood by Culture Blood Culture [facility] Start: 10-11-2024 Blood culture [facility] Start: 10-11-2024 Consultation [facility] Start: 10-11-2024 Following clinical pathway protocol [facility] Start: 10-11-2024 Ambulation without limitation [facility] Start: 10-11-2024 Assessment of risk of venous thromboembolism [facility] Start: 10-11-2024 Inhalation therapy procedure [facility] Start: 10-11-2024 Insertion of catheter into peripheral vein [facility] Start: 10-11-2024 Oxygen therapy [facility] Start: 10-11-2024 Providing care according to standard [facility] Start: 10-11-2024 Referral to service [facility] Start: 10-11-2024 [facility] Start: 10-11-2024 Hospital admission, emergency, from emergency room, medical nature [facility] Start: 10-11-2024 Legionella pneumophila Ag [Presence] in Urine [facility] Start: 10-11-2024 Streptococcus pneumoniae antigen assay [facility] Start: 10-11-2024 Admission procedure [facility] Start: 10-11-2024 Verification routine [facility] Start: 10-11-2024 Serum inorganic phosphate measurement [facility] Start: 10-11-2024 End: 10-11-2024 [facility] Start: 10-08-2024 End: 10-08-2024 Patient encounter procedure 10/08/2024 11:45 AM EDT Office Visit Vascular Surg Dept [address] [place] [address] Yobani Lester MD [address] [place] [address] 3 month follow up with Tayler, no testing needed Vascular Surg Dept Comment on above: 3 month follow up with markus Lester testin g needed Start: 09-07-2024 Patient discharge [facility] Start: 09-06-2024 Ambulation without limitation [facility] Start: 09-06-2024 Assessment of risk of venous thromboembolism [facility] Start: 09-06-2024 Catheterization of vein [facility] Start: 09-06-2024 Incentive spirometry [facility] Start: 09-06-2024 Insertion of catheter into peripheral vein [facility] Start: 09-06-2024 Measuring intake and output [facility] Start: 09-06-2024 Providing care according to standard [facility] Start: 09-06-2024 [facility] Start: 09-06-2024 Following clinical pathway protocol [facility] Start: 09-06-2024 Oxygen therapy [facility] Start: 09-06-2024 Admission procedure [facility] Start: 09-06-2024 Laparoscopic appendectomy Laparoscopic, Appendectomy (Not Applicable) [facility] Start: 09-06-2024 End: 09-07-2024 [facility] Start: 09-06-2024 Anesthesia intraperitoneal lower abd w/laps nos ANESTH SURG LOWER ABDOMEN [facility] Start: 09-06-2024 Bacteria identified in Urine by Culture Urine Culture [facility] Start: 09-06-2024 Laparoscopic appendectomy LAPAROSCOPY APPENDECTOMY [facility] Start: 09-06-2024 Urine culture [facility] Start: 09-06-2024 Patient referral to dietitian [facility] Start: 07-09-2024 End: 07-09-2024 Patient encounter procedure 07/09/2024 11:15 AM EST Office Visit Vascular Surg Dept [address] [place] [address] Yobani Lester MD [address] [place] [address] s/p AAA repair [facility] Comment on above: s/p AAA repair Start: 06-25-2024 Advance Directive Discussion Advance Directive Discussion [facility] Start: 06-11-2024 End: 06-11-2024 Patient encounter procedure 06/11/2024 10:20 AM EST Office Visit [facility] [address] [place] [address] [place] [address] Urinary retention [facility] Comment on above: Urinary retention Start: 05-27-2024 End: 05-27-2024 Admission to same day surgery center Admitting Comment on above: REPAIR THORACOABDOMINAL AORTIC ANEURYSM W/ GRAFT W/ CARDIOPULMONARY BYPASS DIRECT REPAIR OF SUP RARENAL ABDOMINAL AORTIC ANEURYSM Start: 05-27-2024 End: 05-27-2024 Anesthesia consultation 05/27/2024 6:45 AM EST Anesthesia Event Admitting [address] [place] [address] Admitting Start: 05-27-2024 End: 05-27-2024 Dir rpr aneurysm abdom aorta w/visceral vessels DIRECT REPAIR OF SUPRARENAL ABDOMINAL AORTIC ANEURYSM 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) Encounter for screening for cardiovascular disorders Preop testing 05/27/2024 6:45 AM EST [facility] RODRIGUE[facility] CT & VAS Start: 05-27-2024 End: 05-27-2024 Rpr thoracoabdominal aortic aneurys w/wo bypass REPAIR THORACOABDOMINAL AORTIC ANEURYSM W/ GRAFT W/ CARDIOPULMONARY BYPASS 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) Encounter for screening for cardiovascular disorders Preop testing 05/27/2024 6:45 AM EST [facility] CT & V[facility] Start: 05-27-2024 Subsequent hospital visit by physician Admitting Comment on above: Pararenal abdominal aortic aneurysm (AAA ) without rupture (HCC) [I71.41], Encounter for screening for cardiovascular disorders [Z13.6], Preop testing [Z01.818] Start: 05-23-2024 End: 05-23-2024 Patient encounter procedure 05/23/2024 11:30 AM EST Office Visit [facility] Phone Screening [place] [address] Pre OP Admit [employer] [facility] Phone Screening Comment on above: Pre OP Admit Start: 05-05-2024 End: 05-05-2024 ambulatory 05/05/2024 2:30 PM EST Results Only Cardiology [address] [place] [address] Pre Op: AAA w/o rupute Cardiology Comment on above: Pre Op: AAA w/o rupute Start: 05-05-2024 End: 05-05-2024 Patient encounter procedure 05/05/2024 2:30 PM EST Office Visit Cardiology [address] [place] [address] MED Vasquez TO DO LAB 11,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) [I71.41] Cardiology Comment on above: MED Vasquez TO DO LAB 11,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) [I71.41] Start: 04-29-2024 End: 07-29-2024 Basic metabolic 2000 panel - Serum or Plasma BASIC METABOLIC PANEL Lab Routine 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) Encounter for screening for cardiovascular disorders Preop testing Expected: 04/29/2024 (Approximate), Expires: 07/29/2024 [facility] Work Phone: Comment on above: Expected: 04/29/2024 (Approximate), Expi res: 07/29/2024 Start: 04-29-2024 End: 07-29-2024 CBC W Auto Differential panel - Blood COMPLETE BLOOD COUNT AND DIFFERENTIAL Lab Routine 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) Encounter for screening for cardiovascular disorders Preop testing Expected: 04/29/2024 (Approximate), Expires: 07/29/2024 [facility] Comment on above: Expected: 04/29/2024 (Approximate), Expi res: 07/29/2024 Start: 04-29-2024 End: 07-29-2024 CONFIRM BLOOD TYPE CONFIRM BLOOD TYPE Blood Bank Routine 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) Encounter for screening for cardiovascular disorders Preop testing Expected: 04/29/2024 (Approximate), Expires: 07/29/2024 [facility] Comment on above: Expected: 04/29/2024 (Approximate), Expi res: 07/29/2024 Start: 04-29-2024 End: 07-29-2024 PT panel - Platelet poor plasma by Coagulation assay PROTHROMBIN TIME Lab Routine 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) Encounter for screening for cardiovascular disorders Preop testing Expected: 04/29/2024 (Approximate), Expires: 07/29/2024 [facility] Comment on above: Expected: 04/29/2024 (Approximate), Expi res: 07/29/2024 Start: 04-29-2024 End: 07-29-2024 STAPHYLOCOCCUS AUREUS & MRSA SCREEN, PCR, NASAL STAPHYLOCOCCUS AUREUS & MRSA SCREEN, PCR, NASAL Lab Routine 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) Encounter for screening for cardiovascular disorders Preop testing Expected: 04/29/2024, Expires: 07/29/2024 [facility] Comment on above: Expected: 04/29/2024, Expires: Start: 04-29-2024 End: 07-29-2024 TYPE AND SCREEN,30 DAY TYPE AND SCREEN,30 DAY Blood Bank Routine 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) Encounter for screening for cardiovascular disorders Preop testing Expected: 04/29/2024, Expires: 07/29/2024 [facility] Comment on above: Expected: 04/29/2024, Expires: Start: 02-24-2024 Covid-19 Vaccine ( season) Covid-19 Vaccine ( season) [facility] Start: 02-24-2024 Influenza vaccination [facility] Start: 06-25-2023 Advance Directive Discussion Advance Directive Discussion [facility] Start: 06-25-2023 Behavioral Health Screening Behavioral Health Screening [facility] Start: 06-25-2023 Depression Assessment Depression Assessment [facility] Start: 04-24-2023 Urine microalbumin profile DTaP,Tdap,Td Vaccine (2 - Td or Tdap) [facility] Start: 02-23-2023 Covid-19 Vaccine () Covid-19 Vaccine () [facility] Start: 02-23-2023 Covid-19 Vaccine () Covid-19 Vaccine () [facility] Start: 02-23-2023 Influenza vaccination Influenza Vaccine (#1) [facility] Start: 10-25-2022 Varicella virus DNA assay [facility] Start: 10-25-2022 [facility] Start: 10-10-2022 Patient referral [facility] Work Phone: Start: 10-18-2021 Annual PCP Team Chronic Disease Visit Annual PCP Team Chronic Disease Visit [facility] Start: 03-05-2021 Screening for malignant neoplasm of colon [facility] Start: 2017 Screening for osteoporosis Bone Density Screening [facility] Start: 2012 RSV Vaccine (1 - 1-dose 60+ series) RSV Vaccine (1 - 1-dose 60+ series) [facility] Start: 2012 RSV Vaccine (1 - Risk 60-74 years 1-dose series) RSV Vaccine (1 - Risk 60-74 years 1-dose series) [facility] Start: 2002 Shingrix Vaccine (1 of 2) Shingrix Vaccine (1 of 2) [facility] Start: 1997 Diabetes Screening Diabetes Screening [facility] Start: 1997 Lipid panel Lipid Screening [facility] Start: 1997 Screening for malignant neoplasm of colon [facility] Start: 1992 Screening for malignant neoplasm of breast Mammogram Screening [facility] Start: 12-27-1971 Pneumococcal Vaccine: 50+ (1 of 2 - PCV) Pneumococcal Vaccine: 50+ (1 of 2 - PCV) [facility] Start: 1970 Anxiety Screening Anxiety Screening [facility] Start: 1970 BP Controlled (<130/80) BP Controlled (<130/80) [facility] Start: 1970 Depression Screening Depression Screening [facility] Start: 1970 Hepatitis C screening Hepatitis C Screening [facility] Start: 1958 Pneumococcal Vaccine: 65+ (1 of 2 - PCV) Pneumococcal Vaccine: 65+ (1 of 2 - PCV) [facility] Bacteria identified in Cerebral spinal fluid by Culture [facility] CSF Culture CSF Culture [facility] End: 10-11-2024 CTA Abdominal vessels and Pelvis vessels WO and W contrast IV CTA ABD/PEL WO/W IVCON Radiology Routine Abdominal aortic aneurysm (AAA) without rupture, unspecified part (HCC) 1 Occurrences starting 09/12/2023 until 10/11/2024 [facility] Work Phone: Comment on above: 1 Occurrences starting 09/12/2023 until 10/11/2024 End: 11-01-2024 CTA Abdominal vessels and Pelvis vessels WO and W contrast IV CTA ABD/PEL WO/W IVCON Radiology Routine 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) 1 Occurrences starting 10/03/2023 until 11/01/2024 [facility] Work Phone: Comment on above: 1 Occurrences starting 10/03/2023 until 11/01/2024 End: 10-11-2024 CTA Chest vessels WO and W contrast IV CTA CHEST (NONGATED) WO/W IVCON Radiology Routine Abdominal aortic aneurysm (AAA) without rupture, unspecified part (HCC) 1 Occurrences starting 09/12/2023 until 10/11/2024 [facility] Work Phone: Comment on above: 1 Occurrences starting 09/12/2023 until 10/11/2024 End: 11-01-2024 CTA Chest vessels WO and W contrast IV CTA CHEST (NONGATED) WO/W IVCON Radiology Routine 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) 1 Occurrences starting 10/03/2023 until 11/01/2024 [facility] Work Phone: Comment on above: 1 Occurrences starting 10/03/2023 until 11/01/2024 Dir rpr aneurysm abd om aorta w/visceral vessels DIRECT REPAIR OF SUPRARENAL ABDOMINAL AORTIC ANEURYSM 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) Encounter for screening for cardiovascular disorders Preop testing [facility] CT & VAS End: 04-29-2025 ECG COMPLETE ECG COMPLETE ECG Routine 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) Encounter for screening for cardiovascular disorders Preop testing 1 Occurrences starting 04/29/2024 until 04/29/2025 [facility] Comment on above: 1 Occurrences starting 04/29/2024 until 04/29/2025 End: 04-29-2025 Echocardiography ECHO Cardiology Routine 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) Encounter for screening for cardiovascular disorders Preop testing 1 Occurrences starting 04/29/2024 until 04/29/2025 [facility] Comment on above: 1 Occurrences starting 04/29/2024 until 04/29/2025 Herpes simplex virus 1+2 DNA [Presence] in Unspecified specimen by JORDAN with probe detection [facility] Herpes simplex virus DNA assay [facility] Investigation of transfusion reaction Gram Stain [facility] Mycoplasma IgM measurement [facility] Mycoplasma pneumonia e IgG Ab [Presence] in Serum [facility] End: 05-29-2025 NM Heart Perfusion W stress and W radionuclide IV NM CARDIAC PERF STRESS/PHARM Radiology Routine 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) Encounter for screening for cardiovascular disorders Preop testing 1 Occurrences starting 04/29/2024 until 05/29/2025 [facility] Comment on above: 1 Occurrences starting 04/29/2024 until 05/29/2025 Patient Education [facility] Work Phone: Patient referral [facility] Work Phone: RED BLOOD CELLS, ADULT RED BLOOD CELLS, ADULT Blood Bank Routine 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) Encounter for screening for cardiovascular disorders Preop testing 1 Occurrences starting 04/29/2024 [facility] Comment on above: 1 Occurrences starting [facility]29[facility] Immunizations Immunization Date Immunization Notes Care Provider Ramone walters 09-07-2024 influenza, high dose seasonal, preservative-free Dr. Jannet Dey MD Work Phone: [facility] 04-24-2013 tetanus toxoid, redu faviola diphtheria toxoid, and acellular pertussis vaccine, adsorbed Yobani Lester MD Work Phone: [facility] Payers Date Payer Category Payer Self-pay [id number] 2023 Medicare UHC AAR MEDICAR E [facility] MEDICARE HMO [id number] 2023-Present [phone] [address] [address] [place] [address] HMO [id number] 2023 Medicare (Managed Care) [facility] MEDICARE HMO [id number] 2023 Unknown [id number] 2018 Medicare [id number] 1950 Unknown [id number] 2.16.840.1.422122.3.579. 2.627 Medicare MEDICARE PART A B [id number] Private Health Insurance [id number] Unknown [facility] [id number] Unknown [id number] 2.16.840.1.604858.3.579. 2.462 Unknown [id number] 2.16.840.1.905794.3.579. 2.462 Unknown [id number] 2.16.840.1.740323.3.579. 2.462 Unknown [id number] 2.16.840.1.192200.3.579. 2.462 Unknown [id number] 2.16.840.1.535869.3.579. 2.462 Unknown [id number] 2.16.840.1.725979.3.579. 2.462 Unknown [id number] 2.16.840.1.773539.3.579. 2.462 Unknown [id number] 2.16.840.1.315333.3.579. 2.462 Unknown [id number] 2.16.840.1.707769.3.579. 2.462 Unknown [id number] 2.16.840.1.768606.3.579. 2.462 Unknown [id number] 2.16.840.1.550287.3.579. 2.462 Unknown [id number] 2.16.840.1.234366.3.579. 2.462 Unknown [id number] 2.16.840.1.060564.3.579. 2.462 Unknown [id number] 2.16.840.1.786515.3.579. 2.462 Unknown [id number] 2.16.840.1.450733.3.579. 2.462 Unknown [id number] 2.16.840.1.627485.3.579. 2.462 Unknown [id number] 2.16.840.1.751985.3.579. 2.462 Unknown [id number] 2.16.840.1.184927.3.579. 2.462 Unknown [id number] 2.16.840.1.860401.3.579. 2.462 Unknown [id number] 2.16.840.1.622319.3.579. 2.462 Unknown [id number] 2.16.840.1.457871.3.579. 2.462 Unknown [id number] 2.16.840.1.576365.3.579. 2.462 Unknown [id number] 2.16.840.1.415421.3.579. 2.462 Unknown [id number] 2.16.840.1.195370.3.579. 2.462 Social History Date Type Detail Facility Start: 03-01-2022 End: 03-06-2023 Tobacco smoking status [facility] Unknown if ever smoked [facility] Start: 1950 Sex Assigned At Female [facility] Start: 04-24-2013 End: 11-07-2024 Tobacco smoking status MAIS Smokes tobacco daily [facility] History of tobacco use Cigarette Smoker C [facility] Start: 04-24-2013 End: 10-03-2023 Cigarettes smoked current (pack per day) - Reported 0.5 [facility] Work Phone: Start: 04-24-2013 End: 05-05-2024 Tobacco use and exposure Smokeless tobacco non-user [facility] Start: 10-18-2020 End: 10-08-2024 Alcohol intake Current drinker of alcohol (finding) [facility] Start: 10-18-2020 End: 10-03-2023 Tobacco use panel [facility] Work Phone: National Score (1-10 0), lower number is lower risk Not on file [facility] Start: 04-24-2013 Alcohol Comment 2 drinks atle ast daily [facility] Start: 1950 Sex Assigned At Not on file C [facility] Start: 05-05-2024 Tobacco Comment Reports 1-2 cigarettes/day on 05/05/24. [facility] Start: 05-05-2024 Alcohol Comment 3-5 drinks pat ly as of 05/05/24 [facility] Has the electric, [employer] s, oil, or water company threatened to shut off services in your home in past 12Mo No [facility] Work Phone: (I/We) worried santino er (my/our) food would run out before (I/we) got money to buy more. Never true [facility] Start: 09-06-2024 End: 10-14-2024 Sex Female (finding) [facility] Medical Equipment Procedure Code Equipment Code Equipment Origin al Text Equipment Identifier Dates Appendectomy, laparoscopic 45mm Vascular Reload FDA Start: 09-06-2024 Appendectomy, laparoscopic RELOAD,STD 45 [id number] FDA Start: 09-06-2024 Appendectomy, laparoscopic Plant polysaccharide haemostatic agent, bioabsorbable [id number] FDA Start: 09-06-2024 Appendectomy, laparoscopic 45mm Vascular Reload FDA Start: 09-06-2024 Appendectomy, laparoscopic RELOAD,STD 45 [id number] FDA Start: 09-06-2024 Appendectomy, laparoscopic 45mm Vascular Reload FDA Start: 09-06-2024 Appendectomy, laparoscopic RELOAD,STD 45 [id number] FDA Start: 09-06-2024 Appendectomy, laparoscopic 45mm Vascular Reload FDA Start: 09-06-2024 Appendectomy, laparoscopic RELOAD,STD 45 [id number] FDA Start: 09-06-[address] us Vascutek 6mm Straight Gelatin Polyester 30cm - [id number] Start: 05-27-[address] us [id number] Polyester Gelatin 45cm Cardiovascular Knitted - [id number] Start: 05-27-2024 [place] Thk1.65mm P tfe 4x.5in Cardiovascular Sterile - [id number] Start: 05-27-2024 Goals Date Patient Goal Desired Activity /State Personal health goal Functional Status Date Assessment Result Facility 10-14-2024 Functional status Chair [facility] Work Phone: 09-07-2024 Functional status Ambulates;Bath room Privilege [facility] Work Phone: 06-04-2024 Are you deaf, or do you have serious difficulty hearing No 06/04/2024 3:43 PM Jackie Holley, NEELIMA No [facility] 06-04-2024 Are you blind, or do you have serious difficulty seeing, even when wearing glasses No 06/04/2024 3:43 PM Jackie Holley, NEELIMA No [facility] 06-04-2024 Do you have serious difficulty walking or climbing stairs No 06/04/2024 3:43 PM Jackie Holley, NEELIMA No [facility] 06-04-2024 Do you have difficul ty dressing or bathing No 06/04/2024 3:43 PM Jackie Holley, NEELIMA No [facility] 06-04-2024 Because of a physica l, mental, or emotional condition, do you have difficulty doing errands alone such as visiting a physician's office or shopping No 06/04/2024 3:43 PM Jackie Holley RN No [facility] Mental Status Date Assessment Result Facility 10-14-2024 Cognitive function Voice/Name [facility] Work Phone: 09-07-2024 Cognitive function Voice/Name [facility] Work Phone: 06-04-2024 Because of a physica l, mental, or emotional condition, do you have serious difficulty concentrating, remembering, or making decisions No 06/04/2024 3:43 PM Jcakie Holley, NEELIMA No [facility] Clinical Notes 10-25-2022 to 11-07-2024 Note Date & Type Note Facility 11-07-2024 Radiology Diagnostic study note [facility] Imaging Services [address] [place] [address] Chest PA and Lateral MR#: [id number] Acct: [id number] Name: CHARLIE ESTRADA Rep #: [id number] : 1950 F 73 From: Jon Ni MD PCP: Dr. Jannet Dey MD Status: REG ER Study:Chest PA and Lateral Date of Exam: 11/07/24 Exam# [id number] Ordering Dr: Shivani Hernandez PROCEDURE: CHEST PA AND LATERAL 11/07/2024 REASON FOR EXAM: COUGH TECHNIQUE: Frontal and lateral views of the chest. COMPARISON: Prior study dated October 23, 2024. FINDINGS: Hardware: EKG electrodes are seen. Heart: The heart is nonenlarged. Mediastinum: Calcification of the aortic arch and descending thoracic aorta. Lungs: Stable calcified granuloma in the left lower lobe. The previously seen left lower lobe infiltrate has cleared. Bones: Degenerative changes are identified within the thoracic spine. Dextroscoliosis. RAD/Chest PA and Lateral IMPRESSION: No acute abnormality is seen. Reading Location: [id number] CC: Dr. Jannet Dey MD; MYRIAM Camacho ~ [employer] Maker: Signed [facility] 10-14-2024 Consult note Note Date/Time October 14, 2024 12:21pm [facility] Medical Records Department [address] [place] [id number] Counseling Note - Pharmacy 10/14/24 1220 MR#: [id number] Acct: [id number] Name: CHARLIE ESTRADA Rep #:[id number] : 1950 73 From: Rodolfo Delgado PCP: Dr. Jannet eDy MD Status:ADM IN Y Location: [facility] [id number] Pharmacy [facility] has performed discharge medication reconciliation and counseling for this patient. The patient's discharge medication list was reviewed for discrepancies and discrepancies were resolved. The patient was counseled on the following discharge medications and changes in medications for homegoing were reviewed. The Reason for Use, instructions for use, and potential side effects were reviewed for all new medications. The patient's questions regarding all of their medications were answered. 1. Prednisone 40 mg x 3 days, 30 mg x 3 days, 20 mg x 3, 10 mg x 3 2. Amlodipine 5 mg PO daily 3. Metoprolol tartrate 12.5 mg PO BID 4. Augmentin 875 mg PO BID x 5 days The patient was able to verbally demonstrate an understanding of their dischargemedications. Medications at Discharge Home Medications aspirin 81 mg tablet,delayed release (Adult Low Dose Aspirin) 81 mg PO QDAY 07/28/24 amlodipine 5 mg tablet 5 mg PO DAILY #30 tabs 10/14/24 amoxicillin 875 mg-potassium clavulanate 125 mg tablet 1 tab PO BID #10 tabs 10/14/24 metoprolol tartrate 25 mg tablet 12.5 mg (1/2 x 25 mg) PO BID #30 tabs 10/14/24 prednisone 10 mg tablet 10 mg PO DAILY #30 tabs 10/14/24 10/14/24 1221 <Electronically signed by Rodolfo dominguez> Date _ Rodolfo Priest Signature (if applicable): Date CC: ~ Signed [facility] Work Phone: 1(176) 665-617104-22-2025 Discharge summary Author Gabriela Contreras [facility] Note Date/Time October 14, 2024 11: 45am [facility] Medical Records Department [address] [place] [address] Discharge Summary 10/14/24 1121 MR#: [id number] Acct: [id number] Name: CHARLIE ESTRADA Rep #:[id number] : 1950 73 From: Gabriela Contreras DO PCP: Dr. Jannet Dey MD Status:ADM IN Location: [facility] [id number] Providers Date of Admission: 10/11/24 Date of Discharge: 10/14/24 Primary Care Physician: Dr. Jannet Dey MD Consultations 10/11/24 10:13 Consult: Clerk Of Scales / Pulmonary Medicine Routine Consulting Provider: Intensivists/Pulmonary Med Reason for Consult: acute hypoxic respiratory failure, pneumonia EMERGENT Consult: No MD Notified: Yes Date Notified: 10/11/24 Time Notified: 10:13 Method of Notification: Text Reason For Visit: CAP W/COPD EXACERBATION & HYPOXIA Diagnosis Discharge Diagnosis (1) Right lower quadrant pain: Status: Acute Code(s): R10.31 - Right lower quadrant pain Medications at Discharge Home Medications aspirin 81 mg tablet,delayed release (Adult Low Dose Aspirin) 81 mg PO QDAY 07/28/24 amlodipine 5 mg tablet 5 mg PO DAILY #30 tabs 10/14/24 amoxicillin 875 mg-potassium clavulanate 125 mg tablet 1 tab PO BID #10 tabs 10/14/24 metoprolol tartrate 25 mg tablet 12.5 mg (1/2 x 25 mg) PO BID #30 tabs 10/14/24 prednisone 10 mg tablet 10 mg PO DAILY #30 tabs 10/14/24 Hospital Course Procedures EKG and - (CTA chest/CT abdomen pelvis) Summary of Care Provided Minutes Spent on Discharge: 38 Hospital Course: Patient is a 73-year-old white female who presented emergency department at [facility] on 10/11/2024 with a chief complaint of nausea and vomiting. Patient had a triple a repair in May 2024 at [facility] and has a history of COPD. For about the 2 to 3 days prior to presentation she had increased congestion and cough along with shortness of breath and some back pain. She reported at presentation the symptoms got severe on the night of presentation and she could not take it any longer and decided to be evaluated emergency department. She did have some reported sick contacts. She does not take oxygen at baseline. Vital signs on presentation showed a temperature of 99.4, heart rate 108, respiratory rate 26, blood pressure is 143/80 and pulse oxwas 85% on room air. She was placed on 2 L nasal cannula which improved her oxygen saturation to 92% ultimately she required 4 L in the emergency departmentto get her oxygen consistently greater than 88%. CBC showed a marked leukocytosis with a white count of 24.1 and a considerable left shift. ABG in the emergency department showed a pH of 7.38, PCO2 of 30.4 and a PO2 of 81 on 4 L nasal cannula. Chemistry panel showed marked hypokalemia potassium of 2.8 normal renal function, and mild hyperglycemia. Her initial lactate was 2.0 witha repeat of 4.0. Magnesium was low at 1.1. proBNP was 5789. CTA of the chest showed no filling defects but bilateral multifocal infiltrates noted most impressive in the right middle lobe. She was admitted to the medical floor and placed on broad-spectrum antibiotics with ceftriaxone and azithromycin for community-acquired coverage, started on aggressive pulmonary toilet, and startedon IV steroids. COVID/flu/RSV were negative. Blood cultures were negative. Strep pneumo and Legionella antigens were assessed and strep pneumo antigen was positive. Given this her antibiotics were narrowed to ceftriaxone alone. She was noted to be intermittently bradycardic and her baseline medication was metoprolol 50 mg so her metoprolol dose was decreased to 12.5 mg p.o. twice daily and she was started on amlodipine 5 mg daily to address her blood pressure. On 10/13/2024 she complained of pretty severe right lower quadrant pain. She had a recent appendectomy here in August so we did do a CT of her abdomen pelvis. Unfortunately, it was noncontrasted due to slight bump in her renal function as she was also diuresed due to her elevated BNP at the time presentation. Echocardiogram was performed and showed EF of 60% with stage I diastolic dysfunction but was otherwise unremarkable. CT showed a fluid collection in the right lower quadrant so general surgery was consulted. There was concern that this fluid collection could potentially be abscess. The plan was to obtain a contrasted CT scan if her renal function improved on 10/14/2024 which it did, however the patient's pain had resolved after large bowel movementand per discussion with general surgery they felt that that was likely the etiology of her pain and the small fluid collection is likely seroma versus hematoma especially since her white count had completely resolved. At the time of discharge her white count was normal her right lower quadrant pain had resolved and she was requiring 2 L of oxygen with exertion and no oxygen at rest. I have reviewed the oxygen testing, and this patient qualifies for the home equipment and portability. The patient is mobile in the home and the community. We are able to get her oxygen through local DME and this was set up prior to discharge. She was discharged home on 10/14/2024. Again, prescriptionsfor the amlodipine and metoprolol dose change were sent to local pharmacy in addition to Augmentin for 5 more days to complete a total of 7 days and a prednisone taper. She was also instructed to continue to use her Acapella and incentive spirometry and referred to pulmonary medicine. Clinically, after treatment of her pneumonia, she will need outpatient PFTs and be reassessed for supplemental oxygen. She has to follow-up with her primary care physician in the next week. Discharge diagnoses: Acute hypoxic respiratory failure secondary to pneumococcal pneumonia Sepsis secondary to pneumococcal pneumonia Elevated BNP Bradycardia Abdominal pain-resolved KRYSTA-resolved Essential hypertension History of AAA status post repair History of tobacco abuse Constipation Hypokalemia-resolved Chronic anxiety Physical Exam Narrative Patient states her right lower quadrant abdominal pain resolved after a large bowel movement. States that she is feeling much better from a breathing standpoint is anxious to go home. States that her uncle was admitted for heart failure. Const alert, oriented x3, average body habitus, no limitations and well nourished; Negative for no apparent distress Constitutional Narrative: Older, white female, sitting up in a chair at the bedside, appears well, nontoxic, on room air at this time, nursing at bedside getting ready to do ambulatory pulse ox General Appearance: cooperative, comfortable, well kempt and well developed Exam Limitations: no limitations HEENT normocephalic, head/scalp atraumatic and moist oral mucous membranes HEENT Narrative: Mallampati 2, no thrush Eyes EOMs intact bilaterally and conjunctivae normal Eyes Narrative: No scleral icterus Neck no lymphadenopathy and supple Neck Narrative: Trachea midline Resp normal respiratory effort, no retractions, no use of accessory muscles and No clear to auscultation bilaterally Resp Narrative: Diffusely diminished but clear Auscultation: Negative for rales, rhonchi or wheezes Cardio regular rate, regular rhythm, S1 normal heart sound, S2 normal heart sound, no murmurs, no rub, no gallops and no clicks GI normal to inspection, nondistended, normoactive bowel sounds, soft to palpation and non-tender GI Narrative: Abdomen is now without any tenderness in the right lower quadrant Extremity no clubbing, cyanosis or edema Extremity Narrative: 2+ pedal pulses Skin skin turgor normal, no jaundice, no petechiae and no mottling Neuro oriented x3, moves all extremities and no focal motor deficits Speech: speech normal Psych mental status grossly normal, thought process normal, cooperative and affect normal Psych Narrative: Patient interacts appropriately, affect is normalized, eye contact is good, patient is pleasant Appearance: appropriate Weight / BMI Weight Weight: 66 kg Body Mass Index (BMI) 23.5 ABG / Lab / Microbiology Data 10/14/24 05:20 10/14/24 05:20 Laboratory: Laboratory Results - last 24 hr 10/14/24 05:20: WBC 9.6, RBC 3.91 L, Hgb 12.2, Hct 37.3, MCV 95.4, MCH 31.2, MCHC 32.7, RDW Std Deviation 58.9 H, RDW Coeff of Silvia 16.8 H, Plt Count 183, MPV10.8, Immature Gran % (Auto) 0.400, Neut % (Auto) 89.3 H, Lymph % (Auto) 7.3 L, [place] % (Auto) 2.9, Eos % (Auto) 0.0, Baso % (Auto) 0.1, Absolute Neuts (auto) 8.5 H, Absolute Lymphs (auto) 0.70 L, Nucleated RBC % 0, Sodium 139, Potassium 3.7, Chloride 103, Carbon Dioxide 24.1, Anion Gap 12, BUN 31 H, Creatinine 0.98,Estim Creat Clear Calc 49.29 L, Est GFR (MDRD) Non-Af 62, BUN/Creatinine Ratio 31.3 H, Glucose 111 H, Calcium 8.8, Phosphorus 3.3, Magnesium 2.0, Total Bilirubin 0.25, AST 12, ALT 6, Alkaline Phosphatase 66, Total Protein 5.8 L, Albumin 3.2 L, Globulin 2.6, Albumin/Globulin Ratio 1.2 Microbiology: Microbiology 10/11/24 04:09 Blood Culture (Wb) - Anticubital Left Blood Culture - Preliminary No growth in 48 hours. 10/11/24 13:44 Urine, Clean Catch Legionella Antigen - Final 10/11/24 13:44 Urine, Clean Catch Streptococcus pneumoniae Antigen (M - Final Streptococcus pneumonia Ag 10/11/24 04:20 Mucosa - Nose SARS-CoV-2, Influenza & RSV (PCR) - Final Radiography Diagnostic Testing: Radiology Impression Abdomen CT 10/13/24 11:27 IMPRESSION: 1. Status post appendectomy with ill-defined soft tissue mass within the right lower quadrant, incompletely evaluated without the use of IV contrast. Findings may represent intra-abdominal abscess, phlegmon orinflamed appendiceal stump. 2. Interval improvement in the near-complete consolidation/ground-glass opacification of the right lower lobe. 3. Development of small bilateral pleural effusions/pleural thickening not present on comparison examination. 4. Multifocal ectasia of the aortoiliac vessels, incompletely evaluated on noncontrast examination. Reading Location: [id number] D/C Instructions Discharge Diet: Low fat / Low cholesterol Discharge Activity: Return to Normal Activity DC O2, CPAP, BIPAP Needs Home O2 Discharge instructions: Yes Type of respiratory needs?: Oxygen Oxygen frequency: At rest and With Ambulation Oxygen liters per minute during Ambulation: 2 DC home with Oxygen: Yes Home O2 MD Review: I have reviewed the oxygen testing, and the patient qualifies for home oxygen equipment and portability. The patient is mobile in the home and the community. Meaningful Use Info Meaningful Use Meaningful Use Diagnoses (Choose all that apply): None applicable Ischemic Stroke Statin Dosing Therapy Reference: STATIN DOSE THERAPY REFERENCE: * Patients > 75 years receive moderate or high dose statin therapy. * Patients 75 years or YOUNGER should receive HIGH intensity statin dose unless contraindicated. You will be required to document reason for non-treatment if statin daily dose does not meet guidelines. HIGH DOSE STATIN THERAPY DAILY Atorvastatin > than or = to 40 mg Rosuvastatin > than or = to 20 mg Amlodipine + Atorvastatin > than or = to 2.5/40 mg Ezetimibe + Simvastatin 10/80 mg Simvastatin 80mg Discharge Plan Admission Admit Date/Time: 10/11/24 05:39 Primary Reason for Your Visit: Shortness of breath Attending Provider: Gabriela Contreras Primary Care Provider: Jannet Dey Consulting Providers: Nikolai Mejia; Hans Hatch; Dakota Rice; Vitaly Umana; Escobar Zavala; Anshul Quan; Guillermo Klein; Joni Kelley; Shawna Olivarez; Shane Perea; Satya Rocha; Preston Patrick; Zaira Baltazar; Corine Cedeño; Bladimir,Uma; Serenity,Michael; Jono Verdin; Rosalio Mcpherson; Starr,Sudeep; Luis Barron; Genaro Agrawal; Barber Almendarez; Trent Mcgregor; Lee Bucio; Neisha Boston Instructions Additional Instructions / Restrictions: 1. Your heart rate was found to be lower so we decreased your metoprolol from 50 mg to 12.5 mg twice daily and added amlodipine 5 mg daily to help with your blood pressure control 2. Please complete the antibiotics as ordered 3. Please complete prednisone taper as ordered 4. Continue to use incentive spirometer and Acapella for at least the next 7 to10 days 5. You do not need to use oxygen at rest however when you are [facility] to use 2 L until otherwise instructed Discharge Orders/Prescriptions Prescriptions: New metoprolol tartrate 25 mg Tablet 12.5 mg PO BID Qty: 30 0RF amlodipine 5 mg tablet 5 mg PO DAILY Qty: 30 0RF prednisone 10 mg tablet 10 mg PO DAILY Qty: 30 0RF amoxicillin-pot clavulanate 875-125 mg tablet 1 tab PO BID Qty: 10 0RF Continued aspirin [Adult Low Dose Aspirin] 81 mg tablet,delayed release (DR/EC) 81 mg PO QDAY Discontinued metoprolol tartrate 50 mg tablet PO Referrals / Follow Up: Escobar Zavala DO [Med Staff - Active Staff] - See Referral Note (Call to set up an appointment to be seen for your lungs at earliest available appointment) Jannet Dey MD [Primary Care Provider] - Within 1 Week Disposition Disposition (needs filled in before D/C Order can be placed): Home, Self Care Charges/Coding Visit Charges Inpatient E&M: 07362 Disch Hosp >30min 10/14/24 1145 <Electronically signed by Gabriela Contreras DO> Cosigner Signature (if applicable): CC: Dr. Escobar Zavala DO; Dr. Gabriela Contreras DO; Dr. Jannet Dey MD~ Signed [facility] Work Phone: [phone]) 835-267404-22-2025 Consult note [facility] Medical Records Department [address] [place] [address] Counseling Note - Pharmacy 10/14/24 1220 MR#: [id number] Acct: [id number] Name: CHARLIE ESTRADA Rep #:[id number] : 1950 73 From: Rodolfo Delgado PCP: Dr. Jannet Dey MD Status:ADM IN Y Location: [place] [address] Pharmacy [facility] has performed discharge medication reconciliation and counseling for this patient. The patient's discharge medication list was reviewed for discrepancies and discrepancies were resolved. The patient was counseled on the following discharge medications and changes in medications for homegoing were reviewed. The Reason for Use, instructions for use, and potential side effects were reviewed for all new medications. The patient's questions regarding all of their medications were answered. 1. Prednisone 40 mg x 3 days, 30 mg x 3 days, 20 mg x 3, 10 mg x 3 2. Amlodipine 5 mg PO daily 3. Metoprolol tartrate 12.5 mg PO BID 4. Augmentin 875 mg PO BID x 5 days The patient was able to verbally demonstrate an understanding of their dischargemedications. Medications at Discharge Home Medications aspirin 81 mg tablet,delayed release (Adult Low Dose Aspirin) 81 mg PO QDAY 07/28/24 amlodipine 5 mg tablet 5 mg PO DAILY #30 tabs 10/14/24 amoxicillin 875 mg-potassium clavulanate 125 mg tablet 1 tab PO BID #10 tabs 10/14/24 metoprolol tartrate 25 mg tablet 12.5 mg (1/2 x 25 mg) PO BID #30 tabs 10/14/24 prednisone 10 mg tablet 10 mg PO DAILY #30 tabs 10/14/24 10/14/24 1221 r> Date _ Rodolfo Priest Signature (if applicable): Date CC: ~ Signed [facility]04-22-2025 Discharge summary [facility] Medical Records Department [address] [place] [address] Discharge Summary 10/14/24 1121 MR#: [id number] Acct: [id number] Name: CHARLIE ESTRADA Rep #:[id number] : 1950 73 From: Gabriela Contreras DO PCP: Dr. Jannet Dey MD Status:ADM IN [facility] Providers Date of Admission: 10/11/24 Date of Discharge: 10/14/24 Primary Care Physician: Dr. Jannet Dey MD Consultations 10/11/24 10:13 Consult: Clerk Of Scales / Pulmonary Medicine Routine Consulting Provider: Intensivists/Pulmonary Med Reason for Consult: acute hypoxic respiratory failure, pneumonia EMERGENT Consult: No MD Notified: Yes Date Notified: 10/11/24 Time Notified: 10:13 Method of Notification: Text Reason For Visit: CAP W/COPD EXACERBATION & HYPOXIA Diagnosis Discharge Diagnosis (1) Right lower quadrant pain: Status: Acute Code(s): R10.31 - Right lower quadrant pain Medications at Discharge Home Medications aspirin 81 mg tablet,delayed release (Adult Low Dose Aspirin) 81 mg PO QDAY 07/28/24 amlodipine 5 mg tablet 5 mg PO DAILY #30 tabs 10/14/24 amoxicillin 875 mg-potassium clavulanate 125 mg tablet 1 tab PO BID #10 tabs 10/14/24 metoprolol tartrate 25 mg tablet 12.5 mg (1/2 x 25 mg) PO BID #30 tabs 10/14/24 prednisone 10 mg tablet 10 mg PO DAILY #30 tabs 10/14/24 Hospital Course Procedures EKG and - (CTA chest/CT abdomen pelvis) Summary of Care Provided Minutes Spent on Discharge: 38 Hospital Course: Patient is a 73-year-old white female who presented emergency department at [facility] on 10/11/2024 with a chief complaint of nausea and vomiting. Patient had a triple a repair in May 2024 at [facility] and has a history of COPD. For about the 2 to 3 days prior to presentation she had increased congestion and cough along with shortness of breath and some back pain. She reported at presentation the symptoms got severe on the night of presentation and she could not take it any longer and decided to be evaluated emergency department. She did have some reported sick contacts. She does not take oxygen at baseline. Vital signs on presentation showed a temperature of 99.4, heart rate 108, respiratory rate 26, blood pressure is 143/80 and pulse oxwas 85% on room air. She was placed on 2 L nasal cannula which improved her oxygen saturation to 92% ultimately she required 4 L in the emergency departmentto get her oxygen consistently greater than 88%. CBC showed a marked leukocytosis with a white count of 24.1 and a considerable left shift. ABG in the emergency department showeda pH of 7.38, PCO2 of 30.4 and a PO2 of 81 on 4 L nasal cannula. Chemistry panel showed marked hypokalemia potassium of 2.8 normal renal function, and mild hyperglycemia. Her initial lactate was 2.0 witha repeat of 4.0. Magnesium was low at 1.1. proBNP was 5789. CTA of the chest showed no filling defects but bilateral multifocal infiltrates noted most impressive in the right middle lobe. She was admitted to the medical floor and placed on broad-spectrum antibiotics with ceftriaxone and azithromycin for community- acquired coverage, started on aggressive pulmonary toilet, and startedon IV steroids. COVID/flu/RSV were negative. Blood cultures were negative. Strep pneumo and Legionella antigenswere assessed and strep pneumo antigen was positive. Given this her antibiotics were narrowed to ceftriaxone alone. She was noted to be intermittently bradycardic and her baseline medication was metop rolol 50 mg so her metoprolol dose was decreased to 12.5 mg p.o. twice daily and she was started onamlodipine 5 mg daily to address her blood pressure. On 10/13/2024 she complained of pretty severe right lower quadrant pain. She had a recent appendectomy here in August so we did do a CT of her abdomen pelvis. Unfortunately, it was noncontrasted due to slight bump in her renal function as she was also diuresed due to her elevated BNP at the time presentation. Echocardiogram was performed and showed EF of 60% with stage I diastolic dysfunction but was otherwise unremarkable. CT showed a fluid collection in the right lower quadrant so general surgery was consulted. There was concern that this fluid collection could potentially be abscess. The plan was to obtain a contrasted CT scan if her renal function improved on 10/14/2024 which it did, however the patient's pain had resolved after large bowel movementand per discussion with general surgery they felt that that was likely the etiology of her pain and the small fluid collection is likely seroma versus hematoma especially since her whitecount had completely resolved. At the time of discharge her white count was normal her right lower quadrant pain had resolved and she was requiring 2 L of oxygen with exertion and no oxygen at rest. I have reviewed the oxygen testing, and this patient qualifies for the home equipment and portability. The patient is mobile in the home and the community. We are able to get her oxygen through local DME and this was set up prior to discharge. She was discharged home on 10/14/2024. Again, prescriptionsfor the amlodipine and metoprolol dose change were sent to local pharmacy in addition to Augmentinfor 5 more days to complete a total of 7 days and a prednisone taper. She was also instructed to continue to use her Acapella and incentive spirometry and referred to pulmonary medicine. Clinically, after treatment of her pneumonia, she will need outpatient PFTs and be reassessed for supplemental oxygen. She has to follow-up with her primary care physician in the next week. Discharge diagnoses: Acute hypoxic respiratory failure secondary to pneumococcal pneumonia Sepsis secondary to pneumococcal pneumonia Elevated BNP Bradycardia Abdominal pain-resolved KRYSTA-resolved Essential hypertension History of AAA status post repair History of tobacco abuse Constipation Hypokalemia-resolved Chronic anxiety Physical Exam Narrative Patient states her right lower quadrant abdominal pain resolved after a large bowel movement. States that she is feeling much better from a breathing standpoint is anxious to go home. States that heruncle was admitted for heart failure. Const alert, oriented x3, average body habitus, no limitations and well nourished; Negative for no apparent distress Constitutional Narrative: Older, white female, sitting up in a chair at the bedside, appears well, nontoxic, on room air at this time, nursing at bedside getting ready to do ambulatory pulse ox General Appearance: cooperative, comfortable, well kempt and well developed Exam Limitations: no limitations HEENT normocephalic, head/scalp atraumatic and moist oral mucous membranes HEENT Narrative: Mallampati 2, no thrush Eyes EOMs intact bilaterally and conjunctivae normal Eyes Narrative: No scleral icterus Neck no lymphadenopathy and supple Neck Narrative: Trachea midline Resp normal respiratory effort, no retractions, no use of accessory muscles and No clear to auscultationbilaterally Resp Narrative: Diffusely diminished but clear Auscultation: Negative for rales, rhonchi or wheezes Cardio regular rate, regular rhythm, S1 normal heart sound, S2 normal heart sound, no murmurs, no rub, no gallops and no clicks GI normal to inspection, nondistended, normoactive bowel sounds, soft to palpation and non-tender GI Narrative: Abdomen is now without any tenderness in the right lower quadrant Extremity no clubbing, cyanosis or edema Extremity Narrative: 2+ pedal pulses Skin skin turgor normal, no jaundice, no petechiae and no mottling Neuro oriented x3, moves all extremities and no focal motor deficits Speech: speech normal Psych mental status grossly normal, thought process normal, cooperative and affect normal Psych Narrative: Patient interacts appropriately, affect is normalized, eye contact is good, patient is pleasant Appearance: appropriate Weight / BMI Weight Weight: 66 kg Body Mass Index (BMI) 23.5 ABG / Lab / Microbiology Data 10/14/24 05:20 10/14/24 05:20 Laboratory: Laboratory Results - last 24 hr 10/14/24 05:20: WBC 9.6, RBC 3.91 L, Hgb 12.2, Hct 37.3, MCV 95.4, MCH 31.2, MCHC 32.7, RDW Std Deviation 58.9 H, RDW Coeff of Silvia 16.8 H, Plt Count 183, MPV10.8, Immature Gran % (Auto) 0.400, Neut %(Auto) 89.3 H, Lymph % (Auto) 7.3 L, [place] % (Auto) 2.9, Eos % (Auto) 0.0, Baso % (Auto) 0.1, Absolute Neuts (auto) 8.5 H, Absolute Lymphs (auto) 0.70 L, Nucleated RBC % 0, Sodium 139, Potassium 3.7, Chloride 103, Carbon Dioxide 24.1, Anion Gap 12, BUN 31 H, Creatinine 0.98,Estim Creat Clear Calc 49.29 L, Est GFR (MDRD) Non-Af 62, BUN/Creatinine Ratio 31.3 H, Glucose 111 H, Calcium 8.8, Phosphorus3.3, Magnesium 2.0, Total Bilirubin 0.25, AST 12, ALT 6, Alkaline Phosphatase 66, Total Protein 5.8L, Albumin 3.2 L, Globulin 2.6, Albumin/Globulin Ratio 1.2 Microbiology: Microbiology 10/11/24 04:09 Blood Culture (Wb) - Anticubital Left Blood Culture - Preliminary No growth in 48 hours. 10/11/24 13:44 Urine, Clean Catch Legionella Antigen - Final 10/11/24 13:44 Urine, Clean Catch Streptococcus pneumoniae Antigen (M - Final Streptococcus pneumonia Ag 10/11/24 04:20 Mucosa - Nose SARS-CoV-2, Influenza & RSV (PCR) - Final Radiography Diagnostic Testing: Radiology Impression Abdomen CT 10/13/24 11:27 IMPRESSION: 1. Status post appendectomy with ill-defined soft tissue mass within the right lower quadrant, incompletely evaluated without the use of IV contrast. Findings may represent intra-abdominal abscess, phlegmon orinflamed appendicealstump. 2. Interval improvement in the near-complete consolidation/ground-glass opacification of the right lower lobe. 3. Development of small bilateral pleural effusions/pleural thickening not present on comparison examination. 4. Multifocal ectasia of the aortoiliac vessels, incompletely evaluated on noncontrast examination. Reading Location: [facility] D/C Instructions Discharge Diet: Low fat / Low cholesterol Discharge Activity: Return to Normal Activity DC O2, CPAP, BIPAP Needs Home O2 Discharge instructions: Yes Type of respiratory needs?: Oxygen Oxygen frequency: At rest and With Ambulation Oxygen liters per minute during Ambulation: 2 DC home with Oxygen: Yes Home O2 MD Review: I have reviewed the oxygen testing, and the patient qualifies for home oxygen equipment and portability. The patient is mobile in the home and the community. Meaningful Use Info Meaningful Use Meaningful Use Diagnoses (Choose all that apply): None applicable Ischemic Stroke Statin Dosing Therapy Reference: STATIN DOSE THERAPY REFERENCE: * Patients > 75 years receive moderate or high dose statin therapy. * Patients 75 years or YOUNGER should receive HIGH intensity statin dose unless contraindicated. You will be required to document reason for non-treatment if statin daily dose does not meet guidelines. HIGH DOSE STATIN THERAPY DAILY Atorvastatin > than or = to 40 mg Rosuvastatin > than or = to 20 mg Amlodipine + Atorvastatin > than or = to 2.5/40 mg Ezetimibe + Simvastatin 10/80 mg Simvastatin 80mg Discharge Plan Admission Admit Date/Time: 10/11/24 05:39 Primary Reason for Your Visit: Shortness of breath Attending Provider: Gabriela Contreras Primary Care Provider: Jannet Dey Consulting Providers: Nikolai Mejia; Hans Hatch; Dakota Rice; Vitaly Umana; Escobar Zavala;Anshul Quan; Guillermo Klein; Joni Kelley; Shawna Olivarez; Shane Perea; Satya Rocha; Preston Patrick; Zaira Baltazar; Corine Cedeño; Uma Garrison; Michael Benton; Jono Verdin; Rosalio Mcpherson; Sudeep Sales si; Luis Barron; Genaro Agrawal; Barber Almendarez; Ternt Mcgregor; Lee Bucio; Richard Boston Instructions Additional Instructions / Restrictions: 1. Your heart rate was found to be lower so we decreased your metoprolol from 50 mg to 12.5 mg twice daily and added amlodipine 5 mg daily to help with your blood pressure control 2. Please complete the antibiotics as ordered 3. Please complete prednisone taper as ordered 4. Continue to use incentive spirometer and Acapella for at least the next 7 to10 days 5. You do not need to use oxygen at rest however when you are moving around [facility] to use 2 L until otherwise instructed Discharge Orders/Prescriptions Prescriptions: New metoprolol tartrate 25 mg Tablet 12.5 mg PO BID Qty: 30 0RF amlodipine 5 mg tablet 5 mg PO DAILY Qty: 30 0RF prednisone 10 mg tablet 10 mg PO DAILY Qty: 30 0RF amoxicillin-pot clavulanate 875-125 mg tablet 1 tab PO BID Qty: 10 0RF Continued aspirin [Adult Low Dose Aspirin] 81 mg tablet,delayed release (DR/EC) 81 mg PO QDAY Discontinued metoprolol tartrate 50 mg tablet PO Referrals / Follow Up: Escobar Zavala DO [Med Staff - Active Staff] - See Referral Note (Call to set up an appointment to [facility] for your lungs at earliest available appointment) Jannet Dey MD [Primary Care Provider] - Within 1 Week Disposition Disposition (needs filled in before D/C Order can be placed): Home, Self Care Charges/Coding Visit Charges Inpatient E&M: 81177 Disch Hosp >30min 10/14/24 1140 Cosigner Signature (if applicable): CC: Dr. Escobar Zavala DO; Dr. Gabriela Contreras, DO; Dr. Jannet Dey MD~ Signed [facility]04-22-20[facility] Progress note Author Yang Smiley [facility] Note Date/Time October 14, 2024 8:3 1am [facility] Medical Records Department [address] [place] [address] Progress Note - Surgery 10/14/24826 MR#: [id number] Acct: [id number] Name: CHARLIE ESTRADA Rep #:[id number] : 1950 73 From: Yang Smiley MD PCP: Dr. Jannet Dey MD Status:ADM IN Location: [place] [id number]- [id number] Subjective Subjective Patient feeling much better today. She states that her right lower quadrant pain dramatically improved after large bowel movement. She does admit to some slight soreness in this area but otherwise seems to be back to her baseline. She is requesting discharge as her uncle is been hospitalized as well for whom she does care for Objective Data Objective Data Vital Signs: Vital Signs Temp Pulse Resp BP Pulse Ox O2 Del Method O2 Flow Rate 98.3 F 59 L 14 163/91 H 93 Nasal Cannula 2 10/14/24 02:00 10/14/24 02:00 10/14/24 02:00 10/14/24 02:00 10/14/24 02:00 10/14/24 02:28 10/14/24 02:28 FiO2 21 10/12/24 19:44 Oxygen Flow Rate (L/min) 2 Oxygen Delivery Method Nasal Cannula Weight: 145 lb 8.081 oz Body Mass Index (BMI) 23.5 Intake & Output: Intake and Output for Last 24 Hours 10/12/24 10/13/24 10/14/24 23:59 23:59 23:59 Intake Total 1205 / 1205 895 / 895 1120 / 1120 Output Total 100 / 100 2350 / 2350 350 / 350 Balance 1105 / 1105 -1455 / -1455 770 / 770 Lab / Micro Data 10/14/24 05:20 10/14/24 05:20 Labs: Laboratory Results - last 24 hr 10/14/24 05:20: WBC 9.6, RBC 3.91 L, Hgb 12.2, Hct 37.3, MCV 95.4, MCH 31.2, MCHC 32.7, RDW Std Deviation 58.9 H, RDW Coeff of Silvia 16.8 H, Plt Count 183, MPV10.8, Immature Gran % (Auto) 0.400, Neut % (Auto) 89.3 H, Lymph % (Auto) 7.3 L, [place] % (Auto) 2.9, Eos % (Auto) 0.0, Baso % (Auto) 0.1, Absolute Neuts (auto) 8.5 H, Absolute Lymphs (auto) 0.70 L, Nucleated RBC % 0, Sodium 139, Potassium 3.7, Chloride 103, Carbon Dioxide 24.1, Anion Gap 12, BUN 31 H, Creatinine 0.98,Estim Creat Clear Calc 49.29 L, Est GFR (MDRD) Non-Af 62, BUN/Creatinine Ratio 31.3 H, Glucose 111 H, Calcium 8.8, Phosphorus 3.3, Magnesium 2.0, Total Bilirubin 0.25, AST 12, ALT 6, Alkaline Phosphatase 66, Total Protein 5.8 L, Albumin 3.2 L, Globulin 2.6, Albumin/Globulin Ratio 1.2 Micro: Microbiology 10/11/24 04:09 Blood Culture (Wb) - Anticubital Left Blood Culture - Preliminary No growth in 48 hours. 10/11/24 13:44 Urine, Clean Catch Legionella Antigen - Final 10/11/24 13:44 Urine, Clean Catch Streptococcus pneumoniae Antigen (M - Final Streptococcus pneumonia Ag 10/11/24 04:20 Mucosa - Nose SARS-CoV-2, Influenza & RSV (PCR) - Final Radiography Diagnostic Testing: Radiology Impression Abdomen CT 10/13/24 11:27 IMPRESSION: 1. Status post appendectomy with ill-defined soft tissue mass within the right lower quadrant, incompletely evaluated without the use of IV contrast. Findings may represent intra-abdominal abscess, phlegmon orinflamed appendiceal stump. 2. Interval improvement in the near-complete consolidation/ground-glass opacification of the right lower lobe. 3. Development of small bilateral pleural effusions/pleural thickening not present on comparison examination. 4. Multifocal ectasia of the aortoiliac vessels, incompletely evaluated on noncontrast examination. Reading Location: [facility] Physical Exam Const oriented x3 and no apparent distress GI GI Narrative: Very minimal right lower quadrant tenderness to palpation. This is dramaticallyless than yesterday afternoon. No masses. No rebound or guarding. Assessment & Plan Assessment/Plan (1) Right lower quadrant pain: PLAN: Plan The patient is a 73-year-old female who is status post a laparoscopic appendectomy about 3 to 4 weeks ago. She was admitted with a pneumonia and suddenly developed right lower quadrant pain day before yesterday. This right lower quadrant pain seems to be dramatically improved after a large bowel movement overnight. She states that her uncle has been hospitalized for which she does care for. She would really like to be discharged home if possible. Originally she was scheduled for repeat CT scan of the abdomen with contrast. Ifeel that this is optional at this point since she has dramatically improved. Isuspect the finding on the original CT scan was most likely postoperative in nature and should resolve. This was communicated to the hospitalist caring for this patient 10/14/24830 <Electronically signed by Yagn Smiley MD> Cosigner Signature (if applicable): CC: ~ Signed [facility] Work Phone: 1(995) 677-554204-22-2025 Progress note [facility] Medical Records Department [address] [place] [address] Progress Note - Surgery 10/14/24826 MR#: [id number] Acct: [id number] Name: CHARLIE ESTRADA Rep #:[id number] : 1950 73 From: Yang Smiley MD PCP: Dr. Jannet Dey MD Status:ADM IN Location: [place] [id number]- [id number] Subjective Subjective Patient feeling much better today. She states that her right lower quadrant pain dramatically improved after large bowel movement. She does admit to some slight soreness in this area but otherwise seems to be back to her baseline. She is requesting discharge as her uncle is been hospitalized as well for whom she does care for Objective Data Objective Data Vital Signs: Vital Signs Temp Pulse Resp BP Pulse Ox O2 Del Method O2 Flow Rate 98.3 F 59 L 14 163/91 H 93 Nasal Cannula 2 10/14/24 02:00 10/14/24 02:00 10/14/24 02:00 10/14/24 02:00 10/14/24 02:00 10/14/24 02:28 10/14/24 02:28 FiO2 21 10/12/24 19:44 Oxygen Flow Rate (L/min) 2 Oxygen Delivery Method Nasal Cannula Weight: 145 lb 8.081 oz Body Mass Index (BMI) 23.5 Intake & Output: Intake and Output for Last 24 Hours 10/12/24 10/13/24 10/14/24 23:59 23:59 23:59 Intake Total 1205 / 1205 895 / 895 1120 / 1120 Output Total 100 / 100 2350 / 2350 350 / 350 Balance 1105 / 1105 -1455 / -1455 770 / 770 Lab / Micro Data 10/14/24 05:20 10/14/24 05:20 Labs: Laboratory Results - last 24 hr 10/14/24 05:20: WBC 9.6, RBC 3.91 L, Hgb 12.2, Hct 37.3, MCV 95.4, MCH 31.2, MCHC 32.7, RDW Std Deviation 58.9 H, RDW Coeff of Silvia 16.8 H, Plt Count 183, MPV10.8, Immature Gran % (Auto) 0.400, Neut %(Auto) 89.3 H, Lymph % (Auto) 7.3 L, [place] % (Auto) 2.9, Eos % (Auto) 0.0, Baso % (Auto) 0.1, Absolute Neuts (auto) 8.5 H, Absolute Lymphs (auto) 0.70 L, Nucleated RBC % 0, Sodium 139, Potassium 3.7, Chloride 103, Carbon Dioxide 24.1, Anion Gap 12, BUN 31 H, Creatinine 0.98,Estim Creat Clear Calc 49.29 L, Est GFR (MDRD) Non-Af 62, BUN/Creatinine Ratio 31.3 H, Glucose 111 H, Calcium 8.8, Phosphorus3.3, Magnesium 2.0, Total Bilirubin 0.25, AST 12, ALT 6, Alkaline Phosphatase 66, Total Protein 5.8L, Albumin 3.2 L, Globulin 2.6, Albumin/Globulin Ratio 1.2 Micro: Microbiology 10/11/24 04:09 Blood Culture (Wb) - Anticubital Left Blood Culture - Preliminary No growth in 48 hours. 10/11/24 13:44 Urine, Clean Catch Legionella Antigen - Final 10/11/24 13:44 Urine, Clean Catch Streptococcus pneumoniae Antigen (M - Final Streptococcus pneumonia Ag 10/11/24 04:20 Mucosa - Nose SARS-CoV-2, Influenza & RSV (PCR) - Final Radiography Diagnostic Testing: Radiology Impression Abdomen CT 10/13/24 11:27 IMPRESSION: 1. Status post appendectomy with ill-defined soft tissue mass within the right lower quadrant, incompletely evaluated without the use of IV contrast. Findings may represent intra-abdominal abscess, phlegmon orinflamed appendicealstump. 2. Interval improvement in the near-complete consolidation/ground-glass opacification of the right lower lobe. 3. Development of small bilateral pleural effusions/pleural thickening not present on comparison examination. 4. Multifocal ectasia of the aortoiliac vessels, incompletely evaluated on noncontrast examination. Reading Location: [facility] Physical Exam Const oriented x3 and no apparent distress GI GI Narrative: Very minimal right lower quadrant tenderness to palpation. This is dramaticallyless than yesterday afternoon. No masses. No rebound or guarding. Assessment & Plan Assessment/Plan (1) Right lower quadrant pain: PLAN: Plan The patient is a 73-year-old female who is status post a laparoscopic appendectomy about 3 to 4 weeks ago. She was admitted with a pneumonia and suddenly developed right lower quadrant pain day before yesterday. This right lower quadrant pain seems to be dramatically improved after a large bowel mov ement overnight. She states that her uncle has been hospitalized for which she does care for. She would really like to be discharged home if possible. Originally she was scheduled for repeat CT scan of the abdomen with contrast. Ifeel that this is optional at this point since she has dramatically improved. Isuspect the finding on the original CT scan was most likely postoperative in nature and should resolve. This was communicated to the hospitalist caring for this patient 10/14/24 6065 Cosigner Signature (if applicable): CC: ~ Signed [facility]04-21-2025 Progress note Author Gabriela Contreras [facility] Note Date/Time October 13, 2024 8:0 [facility] [address] [place] [address] Progress Note - Hospitalist 10/13/241940 MR#: [id number] Acct: [id number] Name: CHARLIE ESTRADA Rep #:[id number] : 1950 73 From: Gabriela Contreras DO PCP: Dr. Jannet Dey MD Status:ADM IN Location: [place] [address] Reason for Visit Reason for Visit: Shortness of breath Subjective Subjective Patient states overall her breathing is much better. She does not wear oxygen at home and still requires 2 L with ambulation. Has been on antibiotics for strep pneumo pneumonia. Patient today is complaining of some right lower quadrant pain. Had an appendectomy here with Dr. Acosta and was discharged on 09/07/2024. States it is quite intense and started last evening. Objective Data Objective Data Vital Signs: Vital Signs Temp Pulse Resp BP Pulse Ox O2 Del Method O2 Flow Rate 97.3 F L 46 L 16 168/88 H 97 Nasal Cannula 2 10/13/24 14:03 10/13/24 19:00 10/13/24 14:03 10/13/24 14:03 10/13/24 14:03 10/13/24 16:57 10/13/24 16:57 FiO2 21 10/12/24 19:44 Oxygen Flow Rate (L/min) 2 Oxygen Delivery Method Nasal Cannula Weight: 66 kg Body Mass Index (BMI) 23.5 Intake & Output: Intake and Output for Last 24 Hours 10/11/24 10/12/24 10/13/24 23:59 23:59 23:59 Intake Total 3305 / 3305 1205 / 1205 605 / 605 Output Total 100 / 100 1750 / 1750 Balance 3305 / 3305 1105 / 1105 -1145 / -1145 Lab / Micro Data 10/13/24 05:05 10/13/24 05:05 Labs: Laboratory Results - last 24 hr 10/13/24 05:05: WBC 10.0, RBC 3.75 L, Hgb 11.6 L, Hct 35.7 L, MCV 95.2, MCH 30.9, MCHC 32.5, RDW Std Deviation 60.1 H, RDW Coeff of Silvia 17.1 H, Plt Count 196, MPV 10.9, Immature Gran % (Auto) 1.100 H, Neut % (Auto) 89.7 H, Lymph % (Auto) 6.2 L, [place] % (Auto) 2.9, Eos % (Auto) 0.0, Baso % (Auto) 0.1, Absolute Neuts (auto) 8.9 H, Absolute Lymphs (auto) 0.62 L, Nucleated RBC % 0, Sodium 139, Potassium 4.0, Chloride 105, Carbon Dioxide 20.9 L, Anion Gap 13, BUN 40 H,Creatinine 1.36 H, Estim Creat Clear Calc 35.52 L, Est GFR (MDRD) Non-Af 42 L, BUN/Creatinine Ratio 29.4 H, Glucose 114 H, Calcium 8.8 Micro: Microbiology 10/11/24 04:09 Blood Culture (Wb) - Anticubital Left Blood Culture - Preliminary No growth in 48 hours. 10/11/24 13:44 Urine, Clean Catch Legionella Antigen - Final 10/11/24 13:44 Urine, Clean Catch Streptococcus pneumoniae Antigen (M - Final Streptococcus pneumonia Ag 10/11/24 04:20 Mucosa - Nose SARS-CoV-2, Influenza & RSV (PCR) - Final Radiography Diagnostic Testing: Radiology Impression Abdomen CT 10/13/24 11:27 IMPRESSION: 1. Status post appendectomy with ill-defined soft tissue mass within the right lower quadrant, incompletely evaluated without the use of IV contrast. Findings may represent intra-abdominal abscess, phlegmon orinflamed appendiceal stump. 2. Interval improvement in the near-complete consolidation/ground-glass opacification of the right lower lobe. 3. Development of small bilateral pleural effusions/pleural thickening not present on comparison examination. 4. Multifocal ectasia of the aortoiliac vessels, incompletely evaluated on noncontrast examination. Reading Location: [facility] Physical Exam Const alert, oriented x3, average body habitus and well nourished; Negative for no apparent distress Constitutional Narrative: Older, white female, walking to bathroom and sitting up on the edge of the bed with nursing at bedside, appears uncomfortable but nontoxic HEENT head/scalp atraumatic and moist oral mucous membranes HEENT Narrative: No thrush, Mallampati 2-3 Head and Scalp: normocephalic Eyes conjunctivae normal Eyes Narrative: No scleral icterus Neck supple Neck Narrative: Trachea midline Resp normal respiratory effort, no retractions and no use of accessory muscles Resp Narrative: Few scattered end expiratory wheezes diffusely diminished but clear Auscultation: wheezes Cardio regular rate, regular rhythm, S1 normal heart sound, S2 normal heart sound, no murmurs, no rub, no gallops and no clicks GI normal to inspection, nondistended, normoactive bowel sounds and soft to palpation; Negative for non-tender GI Narrative: RLQ Extremity no clubbing, cyanosis or edema Extremity Narrative: 2+ pedal pulses Skin skin turgor normal, no jaundice, no petechiae and no mottling Neuro oriented x3, moves all extremities and no focal motor deficits Speech: speech normal Psych Psych Narrative: tearful, affect is flat Mood & Affect: depressed Assessment & Plan Assessment/Plan (1) Multifocal pneumonia: (2) Streptococcal pneumonia: (3) Right lower quadrant pain: (4) Abnormal computed tomography of abdomen and pelvis: (5) Leukocytosis: (6) Anemia: (7) KRYSTA (acute kidney injury): (8) Lactic acidosis: (9) Bradycardia: (10) Acute respiratory failure with hypoxia: PLAN: Plan Acute hypoxic respiratory failure secondary to streptococcal pneumonia - Clinically improving with antibiotics - Has been on ceftriaxone but will transition to Zosyn due to abnormal finding on CT of the abdomen pelvis -Discontinue azithromycin - Had maximally been on 10 L but now down to 2 - Did check home O2 eval and still needed 2 L at rest and with ambulation dueto desaturation less than 89% - Repeat home O2 eval at the time of discharge - CT of the chest shows multifocal pneumonia - Continue pulmonary toilet -Continue inhaled acetylcysteine - Incentive spirometer - Continue Acapella - Continue steroids 40 every 8 with plans on tapering to 40 daily tomorrow - Pulmonary medicine was consulted and everything at this time Sepsis secondary to streptococcal pneumonia -Sepsis is resolved -continue antibiotics as ordered - Day 3 of 7 Elevated BNP -it was felt that there was a component of acute heart failure contributing to her respiratory distress - Echocardiogram shows an EF of 60% with stage I diastolic dysfunction and no wall motion abnormalities - Stop Lasix as creatinine is trended up and patient is beginning to appear dry Bradycardia -This appears to be new - Patient was started on a beta-lilia at the end of August per external fill history - Will decrease beta-lilia to 12.5 p.o. twice daily from 25 p.o. twice daily and monitor heart rate - If remains bradycardic may need to discontinue and change regimen Abdominal pain - CT of the abdomen pelvis obtained and shows a possible fluid collection right lower quadrant - recent appendectomy - Unable to get contrasted scan due to worsening renal function - Will give 1 L IV fluids and if renal function better tomorrow will get contrasted scan - General Surgery consultation placed and case was discussed with Dr. Acosta KRYSTA - Baseline serum creatinine appears to run between 0.8 and 0.9 - Now up to 1.36 with diuresis -discontinue IV Lasix -will give 1 L IV fluids - Repeat lab in a.m. Hypertension - Continue metoprolol but decreased dose due to bradycardia History of AAA - Ongoing outpatient follow-up -no active symptoms at this time DVT prophylaxis - Continue subcu enoxaparin CODE STATUS Full code Charges/Coding Visit Charges Inpatient E&M: 61343 Subs Hosp L3 10/13/242000 <Electronically signed by Gabriela Contreras DO> Cosigner Signature (if applicable): CC: ~ Signed [facility] Work Phone: 1(714) 670-709504-21-2025 Progress note [facility] Medical Records Department [address] [place] [address] Progress Note - Hospitalist 10/13/241940 MR#: [id number] Acct: [id number] Name: CHARLIE ESTRADA Rep #:[id number] : 1950 73 From: Gabriela Contreras DO PCP: Dr. Jannet Dey MD Status:ADM IN Location: [place] [address] Reason for Visit Reason for Visit: Shortness of breath Subjective Subjective Patient states overall her breathing is much better. She does not wear oxygen at home and still requires 2 L with ambulation. Has been on antibiotics for strep pneumo pneumonia. Patient today is complaining of some right lower quadrant pain. Had an appendectomy here with Dr. Acosta and was discharged on 09/07/2024. States it is quite intense and started last evening. Objective Data Objective Data Vital Signs: Vital Signs Temp Pulse Resp BP Pulse Ox O2 Del Method O2 Flow Rate 97.3 F L 46 L 16 168/88 H 97 Nasal Cannula 2 10/13/24 14:03 10/13/24 19:00 10/13/24 14:03 10/13/24 14:03 10/13/24 14:03 10/13/24 16:57 10/13/24 16:57 FiO2 21 10/12/24 19:44 Oxygen Flow Rate (L/min) 2 Oxygen Delivery Method Nasal Cannula Weight: 66 kg Body Mass Index (BMI) 23.5 Intake & Output: Intake and Output for Last 24 Hours 10/11/24 10/12/24 10/13/24 23:59 23:59 23:59 Intake Total 3305 / 3305 1205 / 1205 605 / 605 Output Total 100 / 100 1750 / 1750 Balance 3305 / 3305 1105 / 1105 -1145 / -1145 Lab / Micro Data 10/13/24 05:05 10/13/24 05:05 Labs: Laboratory Results - last 24 hr 10/13/24 05:05: WBC 10.0, RBC 3.75 L, Hgb 11.6 L, Hct 35.7 L, MCV 95.2, MCH 30.9, MCHC 32.5, RDW Std Deviation 60.1 H, RDW Coeff of Silvia 17.1 H, Plt Count 196, MPV 10.9, Immature Gran % (Auto) 1.100 H, Neut % (Auto) 89.7 H, Lymph % (Auto) 6.2 L, [place] % (Auto) 2.9, Eos % (Auto) 0.0, Baso % (Auto) 0.1, Absolute Neuts (auto) 8.9 H, Absolute Lymphs (auto) 0.62 L, Nucleated RBC % 0, Sodium 139, Potassium 4.0, Chloride 105, Carbon Dioxide 20.9 L, Anion Gap 13, BUN 40 H,Creatinine 1.36 H, Estim Creat Clear Calc 35.52 L, Est GFR (MDRD) Non-Af 42 L, BUN/Creatinine Ratio 29.4 H, Glucose 114 H, Calcium 8.8 Micro: Microbiology 10/11/24 04:09 Blood Culture (Wb) - Anticubital Left Blood Culture - Preliminary No growth in 48 hours. 10/11/24 13:44 Urine, Clean Catch Legionella Antigen - Final 10/11/24 13:44 Urine, Clean Catch Streptococcus pneumoniae Antigen (M - Final Streptococcus pneumonia Ag 10/11/24 04:20 Mucosa - Nose SARS-CoV-2, Influenza & RSV (PCR) - Final Radiography Diagnostic Testing: Radiology Impression Abdomen CT 10/13/24 11:27 IMPRESSION: 1. Status post appendectomy with ill-defined soft tissue mass within the right lower quadrant, incompletely evaluated without the use of IV contrast. Findings may represent intra-abdominal abscess, phlegmon orinflamed appendicealstump. 2. Interval improvement in the near-complete consolidation/ground-glass opacification of the right lower lobe. 3. Development of small bilateral pleural effusions/pleural thickening not present on comparison examination. 4. Multifocal ectasia of the aortoiliac vessels, incompletely evaluated on noncontrast examination. Reading Location: [facility] Physical Exam Const alert, oriented x3, average body habitus and well nourished; Negative for no apparent distress Constitutional Narrative: Older, white female, walking to bathroom and sitting up on the edge of the bed with nursing at bedside, appears uncomfortable but nontoxic HEENT head/scalp atraumatic and moist oral mucous membranes HEENT Narrative: No thrush, Mallampati 2-3 Head and Scalp: normocephalic Eyes conjunctivae normal Eyes Narrative: No scleral icterus Neck supple Neck Narrative: Trachea midline Resp normal respiratory effort, no retractions and no use of accessory muscles Resp Narrative: Few scattered end expiratory wheezes diffusely diminished but clear Auscultation: wheezes Cardio regular rate, regular rhythm, S1 normal heart sound, S2 normal heart sound, no murmurs, no rub, no gallops and no clicks GI normal to inspection, nondistended, normoactive bowel sounds and soft to palpation; Negative for non-tender GI Narrative: RLQ Extremity no clubbing, cyanosis or edema Extremity Narrative: 2+ pedal pulses Skin skin turgor normal, no jaundice, no petechiae and no mottling Neuro oriented x3, moves all extremities and no focal motor deficits Speech: speech normal Psych Psych Narrative: tearful, affect is flat Mood & Affect: depressed Assessment & Plan Assessment/Plan (1) Multifocal pneumonia: (2) Streptococcal pneumonia: (3) Right lower quadrant pain: (4) Abnormal computed tomography of abdomen and pelvis: (5) Leukocytosis: (6) Anemia: (7) KRYSTA (acute kidney injury): (8) Lactic acidosis: (9) Bradycardia: (10) Acute respiratory failure with hypoxia: PLAN: Plan Acute hypoxic respiratory failure secondary to streptococcal pneumonia - Clinically improving with antibiotics - Has been on ceftriaxone but will transition to Zosyn due to abnormal finding on CT of the abdomenpelvis -Discontinue azithromycin - Had maximally been on 10 L but now down to 2 - Did check home O2 eval and still needed 2 L at rest and with ambulation dueto desaturation less than 89% - Repeat home O2 eval at the time of discharge - CT of the chest shows multifocal pneumonia - Continue pulmonary toilet -Continue inhaled acetylcysteine - Incentive spirometer - Continue Acapella - Continue steroids 40 every 8 with plans on tapering to 40 daily tomorrow - Pulmonary medicine was consulted and everything at this time Sepsis secondary to streptococcal pneumonia -Sepsis is resolved -continue antibiotics as ordered - Day 3 of 7 Elevated BNP -it was felt that there was a component of acute heart failure contributing to her respiratory distress - Echocardiogram shows an EF of 60% with stage I diastolic dysfunction and no wall motion abnormalities - Stop Lasix as creatinine is trended up and patient is beginning to appear dry Bradycardia -This appears to be new - Patient was started on a beta-lilia at the end of August per external fill history - Will decrease beta-lilia to 12.5 p.o. twice daily from 25 p.o. twice daily and monitor heart rate - If remains bradycardic may need to discontinue and change regimen Abdominal pain - CT of the abdomen pelvis obtained and shows a possible fluid collection right lower quadrant - recent appendectomy - Unable to get contrasted scan due to worsening renal function - Will give 1 L IV fluids and if renal function better tomorrow will get contrasted scan - General Surgery consultation placed and case was discussed with Dr. Acosta KRYSTA - Baseline serum creatinine appears to run between 0.8 and 0.9 - Now up to 1.36 with diuresis -discontinue IV Lasix -will give 1 L IV fluids - Repeat lab in a.m. Hypertension - Continue metoprolol but decreased dose due to bradycardia History of AAA - Ongoing outpatient follow-up -no active symptoms at this time DVT prophylaxis - Continue subcu enoxaparin CODE STATUS Full code Charges/Coding Visit Charges Inpatient E&M: 56548 Subs Hosp L3 10/13/242000 Cosigner Signature (if applicable): CC: ~ Signed [facility]04-21-2025 Consult note Author Yang Smiley [facility] Note Date/Time October 13, 2024 4:3 0pm [facility] Medical Records Department [address] [facility] [place] [address] Consultation - Surgical 10/13/24 1623 MR#: [id number] Acct: [id number] Name: CHARLIE ESTRADA Rep #:[id number] : 1950 73 From: Yang Smiley MD PCP: Dr. Jannet Dey MD Status:ADM IN Location: [place] [address] Assessment & Plan Assessment/Plan (1) Right lower quadrant pain: PLAN: Plan The patient is a 73-year-old female who was admitted with pneumonia/COPD exacerbation. She was doing well from a pulmonary standpoint however began having right lower quadrant pain that started today. I did perform an appendectomy on her about a month ago. She denies any issues or problems following that surgery. CT scan without IV contrast showed an ill-defined soft tissue mass in the right lower quadrant. I tend to suspect this is most likely postoperative changes potentially related to hematoma or even the Jag used for hemostasis. I feel that it is very doubtful that any type of stump appendicitis or retained appendicitis be present. I discussed this with the admitting hospitalist and we have agreed to widen her antibiotics in case this is an abscess. We will also plan to repeat CT scan tomorrow with IV contrast. We cannot do so today because of her kidney function. In the meantime we will continue supportive measures with IV fluids and antibiotics and pain medication. HPI Consult Data Date of Consult: 10/13/24 HPI Narrative Reason for Consultation: Right lower quadrant pain HPI Narrative: CHARLIE ESTRADA, is a 73 F who presented to the emergency room a couple of days ago with worsening shortness of breath as well as some nausea and vomiting. Shedoes have a history of COPD she was subsequently admitted for presumed COPD exacerbation as well as a community-acquired pneumonia. She has been doing reasonably well and was getting close to discharge however yesterday she began having right lower quadrant pain that started fairly abruptly and this has been persistent since yesterday afternoon. Patient was admitted to the hospitalist service and they ordered a CT scan of the abdomen today. This was performed with just oral contrast. IV contrast was not utilized as she was also having some renal insufficiency with elevated creatinine as well. CT scan was resultedand showed a 4 x 1 cm soft tissue mass in the right lower quadrant. Differential diagnosis on the CT report was abscess versus stump appendicitis etc. I performed her appendectomy about a month ago. This was a retrocecal appendix. There was a bit of overall surface after the appendix was removed. This was treated with Jag which would have been placed around the location ofthe finding noted on CT scan. I was asked by hospital medicine to evaluate the patient for this right lower quadrant pain. Patient states that this pain againbegan fairly abruptly yesterday she states it was like a twinge of pain when it began and has been persistent. To the point where she has difficulty straightening her leg due to pain. She denies any obvious lump or bulge in the groin. No obvious hernias were seen on CT scan. White count today was normal. Rest of her labs were unremarkable. No fevers or chills. [facility] Medical History (Updated 10/13/24 @ 16:[address] Yang Smiley MD) Right lower quadrant pain Pleural effusion on left Atelectasis of left lung Postoperative urinary retention Situational insomnia Chronic anxiety Preop exam for internal medicine Acute bronchitis, unspecified COVID-19 Contact with and (suspected) exposure to other viral communicable diseases Elevated MCV Elevated hemoglobin Hypokalemia Enlarged thyroid gland Uncontrolled hypertension Breast lump Hearing problem AAA (abdominal aortic aneurysm) Rash Knee pain, chronic Hay fever Hemorrhoids HTN (hypertension) Home Medications ?Medication ?Instructions ?Recorded ?Last Taken ?Type aspirin 81 mg tablet,delayed 81 mg PO QDAY 07/28/24 Un known History release (Adult Low Dose Aspirin) metoprolol tartrate 50 mg tablet PO BP 10/11/24 Unknow n History Allergy/AdvReac Type Severity Reaction Status Date / Time NSAIDS (Non-Steroidal AdvReac Nausea Verified 10/11/24 03:43 Anti-Inflamma Family History Other Anxiety with depression Arthritis Asthma Diabetes Hyperlipemia Hypertension Surgical History History of appendectomy Status post AAA (abdominal aortic aneurysm) repair History of AAA (abdominal aortic aneurysm) repair Cataract fragments in eye following surgery Social History Smoking Status: Current every day smoker tobacco type: cigarettes alcohol intake: current alcohol intake frequency: holidays/special occasions only substance use type: does not use Physical Exam Const alert and oriented x3 Constitutional Narrative: Patient somewhat uncomfortable secondary to pain in the right groin General Appearance: cooperative HEENT normocephalic Eyes PERRL Neck supple Resp normal respiratory effort GI GI Narrative: Abdomen is soft and nondistended. She has tenderness in the right lower quadrant. No rebound or guarding. No obvious palpable mass. No obvious palpable inguinal or femoral hernia. No overlying skin changes. Lab / Micro Data 10/13/24 05:05 10/13/24 05:05 Labs: Laboratory Results - last 24 hr 10/13/24 05:05: WBC 10.0, RBC 3.75 L, Hgb 11.6 L, Hct 35.7 L, MCV 95.2, MCH 30.9, MCHC 32.5, RDW Std Deviation 60.1 H, RDW Coeff of Silvia 17.1 H, Plt Count 196, MPV 10.9, Immature Gran % (Auto) 1.100 H, Neut % (Auto) 89.7 H, Lymph % (Auto) 6.2 L, [place] % (Auto) 2.9, Eos % (Auto) 0.0, Baso % (Auto) 0.1, Absolute Neuts (auto) 8.9 H, Absolute Lymphs (auto) 0.62 L, Nucleated RBC % 0, Sodium 139, Potassium 4.0, Chloride 105, Carbon Dioxide 20.9 L, Anion Gap 13, BUN 40 H,Creatinine 1.36 H, Estim Creat Clear Calc 35.52 L, Est GFR (MDRD) Non-Af 42 L, BUN/Creatinine Ratio 29.4 H, Glucose 114 H, Calcium 8.8 Micro: Microbiology 10/11/24 04:09 Blood Culture (Wb) - Anticubital Left Blood Culture - Preliminary No growth in 48 hours. Imaging Radiology Impression Abdomen CT 10/13/24 11:27 IMPRESSION: 1. Status post appendectomy with ill-defined soft tissue mass within the right lower quadrant, incompletely evaluated without the use of IV contrast. Findings may represent intra-abdominal abscess, phlegmon orinflamed appendiceal stump. 2. Interval improvement in the near-complete consolidation/ground-glass opacification of the right lower lobe. 3. Development of small bilateral pleural effusions/pleural thickening not present on comparison examination. 4. Multifocal ectasia of the aortoiliac vessels, incompletely evaluated on noncontrast examination. Reading Location: [facility] Charges/Coding Visit Charges Inpatient E&M: 30061 Init Hosp L3 10/13/24 1630 <Electronically signed by Yang Smiley MD> Cosigner Signature (if applicable): CC: Dr. Jannet Dey MD~ Signed [facility] Work Phone: 1(737) 166-600604-21-2025 Consult note [facility] Medical Records Department [address] [place] [address] Consultation - Surgical 10/13/24 1623 MR#: [id number] Acct: [id number] Name: CHARLIE ESTRADA Rep #:[id number] : 1950 73 From: Yang Simley MD PCP: Dr. Jannet Dey MD Status:ADM IN [facility] & Plan Assessment/Plan (1) Right lower quadrant pain: PLAN: Plan The patient is a 73-year-old female who was admitted with pneumonia/COPD exacerbation. She was doing well from a pulmonary standpoint however began having right lower quadrant pain that started today. I did perform an appendectomy on her about a month ago. She denies any issues or problems following that surgery. CT scan without IV contrast showed an ill-defined soft tissue mass in the right lower quadrant. I tend to suspect this is most likely postoperative changes potentially related to hematoma or even the Ajg used for hemostasis. I feel that it is very doubtful that any type of stump ap pendicitis or retained appendicitis be present. I discussed this with the admitting hospitalist andwe have agreed to widen her antibiotics in case this is an abscess. We will also plan to repeat CT scan tomorrow with IV contrast. We cannot do so today because of her kidney function. In the meantime we will continue supportive measures with IV fluids and antibiotics and pain medication. HPI Consult Data Date of Consult: 10/13/24 HPI Narrative Reason for Consultation: Right lower quadrant pain HPI Narrative: CHARLIE ESTRADA, is a 73 F who presented to the emergency room a couple of days ago with worsening shortness of breath as well as some nausea and vomiting. Talib have a history of COPD she was subsequently admitted for presumed COPD exacerbation as well as a community-acquired pneumonia. She has been doing reasonably well and was getting close to discharge however yesterday she began having rightlower quadrant pain that started fairly abruptly and this has been persistent since yesterday afternoon. Patient was admitted to the hospitalist service and they ordered a CT scan of the abdomen today. This was performed with just oral contrast. IV contrast was not utilized as she was also having some renal insufficiency with elevated creatinine as well. CT scan was resultedand showed a 4 x 1 cm soft tissue mass in the right lower quadrant. Differential diagnosis on the CT report was abscess versus stump appendicitis etc. I performed her appendectomy about a month ago. This was a retrocecal appendix. There was a bit of overall surface after the appendix was removed. This was treated with Jag which would have been placed around the location ofthe finding noted on CT scan. I was asked byhospital medicine to evaluate the patient for this right lower quadrant pain. Patient states that this pain againbegan fairly abruptly yesterday she states it was like a twinge of pain when it began and has been persistent. To the point where she has difficulty straightening her leg due to pain. She denies any obvious lump or bulge in the groin. No obvious hernias were seen on CT scan. White count today was normal. Rest of her labs were unremarkable. No fevers or chills. [facility] Medical History (Updated 10/13/24 @ 16:[address] Yang Smiley MD) Right lower quadrant pain Pleural effusion on left Atelectasis of left lung Postoperative urinary retention Situational insomnia Chronic anxiety Preop exam for internal medicine Acute bronchitis, unspecified COVID-19 Contact with and (suspected) exposure to other viral communicable diseases Elevated MCV Elevated hemoglobin Hypokalemia Enlarged thyroid gland Uncontrolled hypertension Breast lump Hearing problem AAA (abdominal aortic aneurysm) Rash Knee pain, chronic Hay fever Hemorrhoids HTN (hypertension) Home Medications ?Medication ?Instructions ?Recorded ?Last Taken ?Type aspirin 81 mg tablet,delayed 81 mg PO QDAY 07/28/24 Un known History release (Adult Low Dose Aspirin) metoprolol tartrate 50 mg tablet PO BP 10/11/24 Unknow n History Allergy/AdvReac Type Severity Reaction Status Date / Time NSAIDS (Non-Steroidal AdvReac Nausea Verified 10/11/24 03:43 Anti-Inflamma Family History Other Anxiety with depression Arthritis Asthma Diabetes Hyperlipemia Hypertension Surgical History History of appendectomy Status post AAA (abdominal aortic aneurysm) repair History of AAA (abdominal aortic aneurysm) repair Cataract fragments in eye following surgery Social History Smoking Status: Current every day smoker tobacco type: cigarettes alcohol intake: current alcohol intake frequency: holidays/special occasions only substance use type: does not use Physical Exam Const alert and oriented x3 Constitutional Narrative: Patient somewhat uncomfortable secondary to pain in the right groin General Appearance: cooperative HEENT normocephalic Eyes PERRL Neck supple Resp normal respiratory effort GI GI Narrative: Abdomen is soft and nondistended. She has tenderness in the right lower quadrant. No rebound or guarding. No obvious palpable mass. No obvious palpable inguinal or femoral hernia. No overlying skin changes. Lab / Micro Data 10/13/24 05:05 10/13/24 05:05 Labs: Laboratory Results - last 24 hr 10/13/24 05:05: WBC 10.0, RBC 3.75 L, Hgb 11.6 L, Hct 35.7 L, MCV 95.2, MCH 30.9, MCHC 32.5, RDW Std Deviation 60.1 H, RDW Coeff of Silvia 17.1 H, Plt Count 196, MPV 10.9, Immature Gran % (Auto) 1.100 H, Neut % (Auto) 89.7 H, Lymph % (Auto) 6.2 L, [place] % (Auto) 2.9, Eos % (Auto) 0.0, Baso % (Auto) 0.1, Absolute Neuts (auto) 8.9 H, Absolute Lymphs (auto) 0.62 L, Nucleated RBC % 0, Sodium 139, Potassium 4.0, Chloride 105, Carbon Dioxide 20.9 L, Anion Gap 13, BUN 40 H,Creatinine 1.36 H, Estim Creat Clear Calc 35.52 L, Est GFR (MDRD) Non-Af 42 L, BUN/Creatinine Ratio 29.4 H, Glucose 114 H, Calcium 8.8 Micro: Microbiology 10/11/24 04:09 Blood Culture (Wb) - Anticubital Left Blood Culture - Preliminary No growth in 48 hours. Imaging Radiology Impression Abdomen CT 10/13/24 11:27 IMPRESSION: 1. Status post appendectomy with ill-defined soft tissue mass within the right lower quadrant, incompletely evaluated without the use of IV contrast. Findings may represent intra-abdominal abscess, phlegmon orinflamed appendicealstump. 2. Interval improvement in the near-complete consolidation/ground-glass opacification of the right lower lobe. 3. Development of small bilateral pleural effusions/pleural thickening not present on comparison examination. 4. Multifocal ectasia of the aortoiliac vessels, incompletely evaluated on noncontrast examination. Reading Location: [facility] Charges/Coding Visit Charges Inpatient E&M: 01161 Init Hosp L3 10/13/24 1630 Cosigner Signature (if applicable): CC: Dr. Jannet Dey MD~ Signed [facility]04-21-2025 Radiology Diagnostic study note [facility] Imaging Services [address] [place] [address] Abdomen/Pel W ORAL Cont Only MR#: [id number] Acct: [id number] Name: CHARLIE ESTRADA Rep #: [id number] : 1950 F 73 From: Mayra Knight MD PCP: Dr. Jannet Dey MD Status: ADM IN Study:Abdomen/Pel W ORAL Cont Only Date of Ex am: 10/13/24 Exam# [id number] Ordering Dr: Erin Contreras DO PROCEDURE: ABDOMEN/PEL W ORAL CONT ONLY 10/13/2024 REASON FOR EXAM: RT SIDE ABD PAIN TECHNIQUE: Abdomen and pelvis CT without intravenous contrast. Noncontrast technique limits evaluation of the abdominal and pelvic viscera. Coronal and Sagittal reconstruction series were provided. One or more dose reduction techniques were used (e.g., Automated exposure control, adjustment of the mA and/or kV according to patient size, use of iterative reconstruction technique). PATIENT PREPARATION: Per protocol ORAL CONTRAST: Administered COMPARISON: CTA chest 10/11/2024, CT abdomen pelvis 09/06/2024. FINDINGS: Lung bases: Near-complete consolidation/ground-glass opacification of the visualized right middle lobe, improved since prior examination. Small bilateral pleural effusions/pleural thickening with adjacentatelectasis. The heart is normal in size with coronary artery calcifications. Liver: The unopacified liver is normal in size. No biliary ductal dilation. Gallbladder: No radiopaque stones within the gallbladder. Spleen: Normal size. Pancreas: The unopacified liver is grossly unremarkable. Adrenals: No adrenal mass. Kidneys: Mild asymmetric atrophy of the right kidney. Bilateral renal cysts andadditional hypodensities. No hydronephrosis or nephrolithiasis. Bladder: Distended and unremarkable. Reproductive Organs: Prior hysterectomy. Bowel: Oral contrast material opacifies the stomach and small bowel loops. The bowel loops are nondilated. Status post appendectomy with ill-defined soft tissue mass within the right lower quadrant measuring 4.3 x 1.7 cm (sagittal image 47), with adjacent soft tissue stranding. No ascites or pneumoperitoneum. Lymph nodes: Visualization is limited without the use of IV contrast. No obvious lymphadenopathy. Vasculature: Multifocal ectasia of the visualized abdominal aorta, extending into the bilateral common iliac arteries, incompletely characterized on noncontrast examination. Bones/soft tissues: Partially visualized breast implants. Body wall edema alongthe bilateral lower abdomen, [id number]-right. Laxity of the left lateral ventral abdominal wall withscarring. Subcutaneous gas along the ventral lower abdominal wall, likely prior injection sites. Thoracolumbar spondylosis. Chronic L1 compression fracture deformity. CT/Abdomen/Pel W ORAL Cont Only IMPRESSION: 1. Status post appendectomy with ill-defined soft tissue mass within the right lower quadrant, incompletely evaluated without the use of IV contrast. Findings may represent intra-abdominal abscess, phlegmon orinflamed appendicealstump. 2. Interval improvement in the near-complete consolidation/ground-glass opacification of the right lower lobe. 3. Development of small bilateral pleural effusions/pleural thickening not present on comparison examination. 4. Multifocal ectasia of the aortoiliac vessels, incompletely evaluated on noncontrast examination. Reading Location: [id number] CC: Dr. Gabriela Contreras DO; Dr. Jannet Dey MD ~ [employer] Maker: Signed [facility]04-20-2025 Progress [facility] Author [facility] Note Date/Time October 12, 2024 4:0 6pm [facility] Medical Records Department [address] [place] [address] Progress Note 10/12/24 1059 MR#: [id number] Acct: [id number] Name: CHARLIE ESTRADA Rep #:[id number] : 1950 73 From: Neisha Boston MD PCP: Dr. Jannet Dey MD Status:ADM IN Location: [place] [address] Subjective Subjective Patient seen and examined. She had no active complaints and felt much better today. She is on 3L of oxygen by nasal canula. Review of systems is otherwise negative. Wbc is 16.2. Platelets are 180 today.Cr today is up to 1.31. Objective Data Objective Data Vital Signs: Vital Signs Temp Pulse Resp BP Pulse Ox O2 Del Method O2 Flow Rate 97.5 F L 67 18 113/51 L 92 High Flow 3 10/12/24 09:14 10/12/24 09:22 10/12/24 09:14 10/12/24 09:14 10/12/24 09:14 10/12/24 09:14 10/12/24 09:14 Oxygen Flow Rate (L/min) 3 Oxygen Delivery Method High Flow Weight: 145 lb 8.081 oz Body Mass Index (BMI) 23.5 Intake & Output: Intake and Output for Last 24 Hours 04/18/25 04/19/25 04/20/25 23:59 23:59 23:59 Intake Total 3305 / 3305 355 / 355 Balance 3305 / 3305 355 / 355 Lab / Micro Data 10/12/24 04:34 10/12/24 04:34 Labs: Laboratory Results - last 24 hr 10/11/24 08:25: Lactic Acid 4.0 H* 10/12/24 04:34: WBC 16.2 H, RBC 3.83 L, Hgb 11.9 L, Hct 36.2 L, MCV 94.5, MCH 31.1, MCHC 32.9, RDW Std Deviation 59.8 H, RDW Coeff of Silvia 17.4 H, Plt Count 180, MPV 10.6, Sodium 137, Potassium 3.8, Chloride 105, Carbon Dioxide 17.8 L, Anion Gap 14, BUN 35 H, Creatinine 1.31 H, Estim Creat Clear Calc 36.87 L, Est GFR (MDRD) Non- Af 44 L, BUN/Creatinine Ratio 26.6 H, Glucose 188 H, Calcium 8.5 Micro: Microbiology 10/11/24 13:44 Urine, Clean Catch Legionella Antigen - Final 10/11/24 13:44 Urine, Clean Catch Streptococcus pneumoniae Antigen (M - Final Streptococcus pneumonia Ag 10/11/24 04:20 Mucosa - Nose SARS-CoV-2, Influenza & RSV (PCR) - Final ABG Data ABG results: ABG 10/11/24 17:29 Specimen Type ART Sample Site L Radial pH 7.38 Bicarbonate Actual 18.1 L Total CO2 19 Base Excess -7 L O2 Saturation 96 O2 % 10.0 ABG pCO2 30.4 L ABG pO2 81 Gui Test Positive O2 Delivery Device Cannula Vent Mode Not entered Radiography Diagnostic Testing: Radiology Impression Echocardiogram 10/11/24 10:15 Interpretation Summary Normal LV size. The left ventricular ejection fraction is 60 %. Stage 1 diastolic dysfunction. Contrast injection was performed. Ordering Physician: Neisha Boston Referring Physician: Jannet Dey Performed By: Codie Pantoja, RDCS, RVT Physical Exam Const alert, oriented x3, no apparent distress and average body habitus General Appearance: cooperative and comfortable HEENT normocephalic, head/scalp atraumatic, hearing grossly normal bilaterally, nasal mucous membranes and turbinates normal, moist oral mucous membranes, oropharynx normal and gingiva normal Eyes PERRL, EOMs intact bilaterally and conjunctivae normal Neck full ROM, no lymphadenopathy and supple General: trachea midline Lymph Lymphatic: no lymphadenopathy noted Chest inspection of chest normal Resp Resp Narrative: moderately diminished breath sounds in mid and lower lung nunez, no wheezes or crackles. On 3 L of oxygen by nasal canula. Cardio regular rate, regular rhythm, S1 normal heart sound, S2 normal heart sound, no murmurs and peripheral pulses 2+ throughout GI normal to inspection, nondistended, normoactive bowel sounds, soft to palpation,non-tender and non-distended Back/Spine normal ROM Extremity normal to inspection, full ROM, normal capillary refill, no clubbing, cyanosis or edema and no calf tenderness General Extremity: no tenderness to palpation of joints or extremities Skin no rashes or lesions noted General Skin Exam: no breakdown Neuro CN's II-XII intact bilaterally, no focal motor deficits and no sensory deficits noted Motor Exam: strength 5/5 throughout and general weakness Psych mental status grossly normal, thought process normal and cooperative Appearance: appropriate Assessment & Plan Assessment/Plan (1) Hypoxia: (2) Multifocal pneumonia: (3) Acute respiratory failure with hypoxia: PLAN: Plan #Acute hypoxic respiratory failure due to probable aspiration pneumonia * down to 3L, from 10L on admission. * wbc is down to 16.2. * on IV zosyn * urine for strep antigen is positive. * CT chest showed evidence of multifocal pneumonia. * pulmonology on board. * Breathing treatments and bronchodilators. Titrate oxygen to maintain saturation above 90%. * #Sepsis due to aspiration pneumonia: Management as above. #Hypokalemia: resolved. K is 3.8 today. #acute heart failure with pEF * EF is unknown. proBNP is 5789 and 2D echo showed EF of 60% with stage I diastolic dysfunction and no regional wall motion abnormalities noted. He has stage I diastolic dysfunction. * Will diurese with IV Lasix 40 mg twice daily as fluid overload is likely also contributing to the hypoxia. * Hypertension: on metoprolol DVT prophylaxis: lovenox COde status: full code Charges/Coding Visit Charges Inpatient E&M: 58133 Subs Hosp L2 10/12/24 1545 <Electronically signed by Neisha Boston MD> Neisha Boston MD Cosigner Signature (if applicable): CC: ~ Signed ADDENDUM by Dr. Neisha Boston MD on 10/12/24 at 1606 Addendum Patient bradycardic with heart rate in the 40s and 50s. She is asymptomatic. Will hold metoprolol and monitor. 10/12/24 1606 <Electronically signed by Neisha martinez MD> Date _ Neisha Boston MD Cosigner Signature (if applicable): Date cc: ~* Signed [facility] Work Phone: [phone] 192-896004-20-2025 Progress note [facility] Medical Records Department [address] [place] [address] Progress Note 10/12/24 1059 MR#: [id number] Acct: [id number] Name: CHARLIE ESTRADA Rep #:[id number] : 1950 73 From: Neisha Boston MD PCP: Dr. Jannet Dey MD Status:ADM IN Location: [place] [address] Subjective Subjective Patient seen and examined. She had no active complaints and felt much better today. She is on 3L ofoxygen by nasal canula. Review of systems is otherwise negative. Wbc is 16.2. Platelets are 180 today.Cr today is up to 1.31. Objective Data Objective Data Vital Signs: Vital Signs Temp Pulse Resp BP Pulse Ox O2 Del Method O2 Flow Rate 97.5 F L 67 18 113/51 L 92 High Flow 3 10/12/24 09:14 10/12/24 09:22 10/12/24 09:14 10/12/24 09:14 10/12/24 09:14 10/12/24 09:14 10/12/24 09:14 Oxygen Flow Rate (L/min) 3 Oxygen Delivery Method High Flow Weight: 145 lb 8.081 oz Body Mass Index (BMI) 23.5 Intake & Output: Intake and Output for Last 24 Hours 10/10/24 10/11/24 10/12/24 23:59 23:59 23:59 Intake Total 3305 / 3305 355 / 355 Balance 3305 / 3305 355 / 355 Lab / Micro Data 10/12/24 04:34 10/12/24 04:34 Labs: Laboratory Results - last 24 hr 10/11/24 08:25: Lactic Acid 4.0 H* 10/12/24 04:34: WBC 16.2 H, RBC 3.83 L, Hgb 11.9 L, Hct 36.2 L, MCV 94.5, MCH 31.1, MCHC 32.9, RDW Std Deviation 59.8 H, RDW Coeff of Silvia 17.4 H, Plt Count 180, MPV 10.6, Sodium 137, Potassium 3.8, Chloride 105, Carbon Dioxide 17.8 L, Anion Gap 14, BUN 35 H, Creatinine 1.31 H, Estim Creat Clear Calc 36.87 L, Est GFR (MDRD) Non-Af 44 L, BUN/Creatinine Ratio 26.6 H, Glucose 188 H, Calcium 8.5 Micro: Microbiology 10/11/24 13:44 Urine, Clean Catch Legionella Antigen - Final 10/11/24 13:44 Urine, Clean Catch Streptococcus pneumoniae Antigen (M - Final Streptococcus pneumonia Ag 10/11/24 04:20 Mucosa - Nose SARS-CoV-2, Influenza & RSV (PCR) - Final ABG Data ABG results: ABG 10/11/24 17:29 Specimen Type ART Sample Site L Radial pH 7.38 Bicarbonate Actual 18.1 L Total CO2 19 Base Excess -7 L O2 Saturation 96 O2 % 10.0 ABG pCO2 30.4 L ABG pO2 81 Gui Test Positive O2 Delivery Device Cannula Vent Mode Not entered Radiography Diagnostic Testing: Radiology Impression Echocardiogram 10/11/24 10:15 Interpretation Summary Normal LV size. The left ventricular ejection fraction is 60 %. Stage 1 diastolic dysfunction. Contrast injection was performed. Ordering Physician: Neisha Boston Referring Physician: Jannet Dey Performed By: Codie Pantoja, RDCS, RVT Physical Exam Const alert, oriented x3, no apparent distress and average body habitus General Appearance: cooperative and comfortable HEENT normocephalic, head/scalp atraumatic, hearing grossly normal bilaterally, nasal mucous membranes and turbinates normal, moist oral mucous membranes, oropharynx normal and gingiva normal Eyes PERRL, EOMs intact bilaterally and conjunctivae normal Neck full ROM, no lymphadenopathy and supple General: trachea midline Lymph Lymphatic: no lymphadenopathy noted Chest inspection of chest normal Resp Resp Narrative: moderately diminished breath sounds in mid and lower lung nunez, no wheezes or crackles. On 3 L ofoxygen by nasal canula. Cardio regular rate, regular rhythm, S1 normal heart sound, S2 normal heart sound, no murmurs and peripheral pulses 2+ throughout GI normal to inspection, nondistended, normoactive bowel sounds, soft to palpation,non-tender and non-distended Back/Spine normal ROM Extremity normal to inspection, full ROM, normal capillary refill, no clubbing, cyanosis or edema and no calftenderness General Extremity: no tenderness to palpation of joints or extremities Skin no rashes or lesions noted General Skin Exam: no breakdown Neuro CN's II-XII intact bilaterally, no focal motor deficits and no sensory deficits noted Motor Exam: strength 5/5 throughout and general weakness Psych mental status grossly normal, thought process normal and cooperative Appearance: appropriate Assessment & Plan Assessment/Plan (1) Hypoxia: (2) Multifocal pneumonia: (3) Acute respiratory failure with hypoxia: PLAN: Plan #Acute hypoxic respiratory failure due to probable aspiration pneumonia * down to 3L, from 10L on admission. * wbc is down to 16.2. * on IV zosyn * urine for strep antigen is positive. * CT chest showed evidence of multifocal pneumonia. * pulmonology on board. * Breathing treatments and bronchodilators. Titrate oxygen to maintain saturation above 90%. * #Sepsis due to aspiration pneumonia: Management as above. #Hypokalemia: resolved. K is 3.8 today. #acute heart failure with pEF * EF is unknown. proBNP is 5789 and 2D echo showed EF of 60% with stage I diastolic dysfunction andno regional wall motion abnormalities noted. He has stage I diastolic dysfunction. * Will diurese with IV Lasix 40 mg twice daily as fluid overload is likely also contributing to thehypoxia. * Hypertension: on metoprolol DVT prophylaxis: lovenox COde status: full code Charges/Coding Visit Charges Inpatient E&M: 68800 Subs Hosp L2 10/12/24 1545 Neisha Boston MD Cosigner Signature (if applicable): CC: ~ Signed ADDENDUM by Dr. Neisha Boston MD on 10/12/24 at 1606 Addendum Patient bradycardic with heart rate in the 40s and 50s. She is asymptomatic. Will hold metoprolol and monitor. 10/12/24 1606 m MD> Date _ Neisha Boston MD Cosigner Signature (if applicable): Date cc: ~* Signed [facility]04-20-2025 Progress note Author Preston Patrick [facility] Note Date/Time October 12, 2024 10: 28am [facility] Medical Records Department [address] [place] [address] Progress Note - Clerk Of Scales 10/12/24 1023 MR#: [id number] Acct: [id number] Name: CHARLIE ESTRADA Rep #:[id number] : 1950 73 From: Preston Patrick MD PCP: Dr. Jannte Dey MD Status:ADM IN Location: [place] [id number] Objective Data Objective Data Vital Signs: Vital Signs Last response 3 Temperature 36.4 C L 10/12/24 09:14 Temperature Source Temporal 10/12/24 09:14 Pulse Rate 67 10/12/24 09:22 Pulse Strength Normal (2+) 10/12/24 09:09 Respiratory Rate 18 10/12/24 09:14 Respiratory Effort Normal, Non-Labored 10/12/24 09:12 Respiratory Depth Normal 10/12/24 09:12 Respiratory Pattern Normal 10/12/24 09:12 Blood Pressure 113/51 L 10/12/24 09:14 Blood Pressure Mean 71 10/12/24 09:14 Blood Pressure Source Monitor 10/11/24 17:27 Blood Pressure Position Semi-Fowlers 10/11/24 17:27 Blood Pressure Location Right Arm 10/11/24 17:27 Pulse Ox 92 10/12/24 09:14 Oxygen Delivery Method High Flow 10/12/24 09:14 Oxygen Flow Rate (L/min) 3 10/12/24 09:14 I&O: I&O Last 24 Hours 3 10/11/24 10/11/24 10/12/24 11:59 23:59 11:59 Intake Total 1555 / 3305 1750 / 3305 50 / 50 Balance 1555 / 3305 1750 / 3305 50 / 50 I&O: Total Stay 3 10/11/24 03:41 thru 10/12/24 05:54 Intake Total 3355 Balance 3355 Current Meds Ordered / Administered: Current meds ordered / Administered 3 Generic Name Dose Route Start Last Admin Trade Name Freq PRN Reason Stop Dose Admin Acetaminophen 650 mg 10/11/24 06:28 Acetaminophen 325 Mg Tablet PO Q6H PRN PRN Pain 1-10 Or Fever>100.7 Acetylcysteine 800 mg 10/11/24 16:45 10/12/24 06:27 Acetylcysteine 800 Mg/4 Ml Vial.Neb. INHALATION 10/14/24 23:59 800 mg BID.RT CEM Administration Albuterol/Ipratropium 3 ml 10/11/24 16:45 10/12/24 06:27 Ipratropium/Albuterol Sulfate 3 Ml Ampul.Neb INHALATION 10/15/24 16:46 3 ml BID.RT CEM Administration Aspirin 81 mg 10/11/24 08:00 10/12/24 09:22 Aspirin E.C. 81 Mg Tablet PO 81 mg BREAKFAST CEM Administration Enoxaparin Sodium 40 mg 10/11/24 10:00 10/12/24 09:22 Enoxaparin 40 Mg/0.4 Ml Syringe SC 40 mg DAILY CEM Administration Furosemide 40 mg 10/11/24 13:50 10/12/24 09:23 Furosemide 40 Mg/4 Ml Vial IV 40 mg BIDLX CEM Administration Protocol Azithromycin 500 mg/ Sodium 255 mls @ 255 mls/hr 10/11/24 10:00 10/12/24 09:23 Chloride IV 255 mls/hr Q24 CEM Administration Piperacillin Sod/Tazobactam 50 mls @ 12.5 mls/hr 10/11/24 14:00 10/12/24 05:57 Sod 3.375 gm/ Sodium Chloride IV 12.5 mls/hr Q8 CEM Administration Melatonin 3 mg 10/11/24 06:28 Melatonin 3 Mg Tablet PO QHS PRN PRN INSOMNIA Methylprednisolone Sodium Succinate 40 mg 10/11/24 14:00 10/12/24 05:58 Methylprednisolone Sod Succ 40 Mg/Ml Vial IV 40 mg Q8 CEM Administration Metoprolol Tartrate 25 mg 10/11/24 10:00 10/12/24 09:22 Metoprolol Tartrate 25 Mg Tablet PO 25 mg BID CEM Administration Protocol Morphine Sulfate 1 mg 10/11/24 08:16 Morphine 2 Mg/Ml Syringe IV Q3H PRN PRN Pain Score 6-10 Ondansetron HCl 4 mg 10/11/24 06:28 Ondansetron 4 Mg/2 Ml Vial IV Q8H PRN PRN NAUSEA/VOMITING Oxycodone HCl 5 mg 10/11/24 08:13 10/12/24 04:26 Oxycodone 5 Mg Tablet PO 5 mg Q6H PRN PRN Administration Pain Score 6-10 Sodium Chloride 10 - 40 ml 10/11/24 06:38 10/11/24 21:41 0.9% Saline Lock 10 Ml Syringe IV 10 ml UD PRN Administration SALINE FLUSH Lab / Micro Data Attestation: I reviewed the patient's lab results. (Urine (+) strep Ag) 10/12/24 04:34 10/12/24 04:34 Labs: Laboratory Results - last 24 hr 10/11/24 04:09: NT pro BNP II 5789 H 10/11/24 08:25: Lactic Acid 4.0 H* 10/12/24 04:34: WBC 16.2 H, RBC 3.83 L, Hgb 11.9 L, Hct 36.2 L, MCV 94.5, MCH 31.1, MCHC 32.9, RDW Std Deviation 59.8 H, RDW Coeff of Silvia 17.4 H, Plt Count 180, MPV 10.6, Sodium 137, Potassium 3.8, Chloride 105, Carbon Dioxide 17.8 L, Anion Gap 14, BUN 35 H, Creatinine 1.31 H, Estim Creat Clear Calc 36.87 L, Est GFR (MDRD) Non- Af 44 L, BUN/Creatinine Ratio 26.6 H, Glucose 188 H, Calcium 8.5 Micro: Microbiology 10/11/24 13:44 Urine, Clean Catch Legionella Antigen - Final 10/11/24 13:44 Urine, Clean Catch Streptococcus pneumoniae Antigen (M - Final Streptococcus pneumonia Ag ABG Data ABG results: ABG 10/11/24 17:29 Specimen Type ART Sample Site L Radial pH 7.38 Bicarbonate Actual 18.1 L Total CO2 19 Base Excess -7 L O2 Saturation 96 O2 % 10.0 ABG pCO2 30.4 L ABG pO2 81 Gui Test Positive O2 Delivery Device Cannula Vent Mode Not entered Imaging Radiology Impression Echocardiogram 10/11/24 10:15 Interpretation Summary Normal LV size. The left ventricular ejection fraction is 60 %. Stage 1 diastolic dysfunction. Contrast injection was performed. Ordering Physician: Neisha Boston Referring Physician: Jannet Dey Performed By: Codie Pantoja, RENAE, RVT Assessment and Plan . Assessment and plan: Given the atypical appearance on CT, Strep Pneumo is unexpected, but very specific when found. Can reduce coverage to ceftriaxone and convert to PO treatment tomorrow if off O2 Continue chest expansion and physiotherapy q4h WA complete acetylcysteine neb 3d INH therapy q12h with RT Preston Patrick MD [facility] Access [employer] The entirety of this encounter was done via Telemedicine Physical Exam Const alert, oriented x3 and no apparent distress General Appearance: cooperative, well developed, ill appearing and frail HEENT normocephalic, head/scalp atraumatic and moist oral mucous membranes Eyes PERRL, EOMs intact bilaterally, conjunctivae normal and no scleral icterus Neck full ROM Lymph Lymphatic: no lymphadenopathy noted Chest inspection of chest normal Resp normal respiratory effort and no use of accessory muscles Effort and Inspection: able to speak in complete sentences Auscultation: rhonchi right upper and diminished lung sounds Cardio regular rate GI normal to inspection, nondistended, normoactive bowel sounds, soft to palpation and non-tender no CVA tenderness Extremity no clubbing, cyanosis or edema Skin no rashes or lesions noted Neuro oriented x3 and CN's II-XII intact bilaterally Psych cooperative and affect normal Subjective Subjective HPI Narrative: 73yo who presented to [facility] ED on with worsening shortness of breath and nausea with vomiting. Patient has history of mild COPD,is not on home oxygen. No prior history of COPD exacerbations requiring hospitalization. She was hospitalized last month with acute appendicitis s/p laparoscopic appendectomy. Notes that she did well below surgery and was discharged home without issue. She lives at home with 3 other family members. Notes that over the past few days she has had some upper respiratory symptoms and mild shortness of breath, but then last night it became much worse and she began to have episodes of nausea with vomiting. Denies any history of aspiration or known aspiration events. Because of the symptoms, she came into the ED for further evaluation. On arrival to the ED she was noted to hypoxic to the low to mid 80s on room air and was breathing at 30-35 times per minute. She was tachycardic to the low 100s and had a low-grade fever of 99.4F. She was placed on supplemental oxygen and given a breathing treatment with moderate improvement in her work of breathing. CTA chest showed no PE but did show bilateral multifocal pneumonia with consolidation greatest in the right middle lobe. Labs notable for WBC count of 24, potassium 2.8 and magnesium 1.1. She was given doses of IV antibiotics and steroids for suspected pneumonia with COPD exacerbation, and hospitalist was contacted for admission. She has been in PCU, but apparently had an acute escalation of FiO2 required this AM to [id number], new CT showing brand new GGO in RUL, resolution of density in LLL. Hospitalist has escalated antibiotics for broader GN and GPC coverage. 10/11 - [id number] 10/12 - 3LNCO2, feels much better, still dry cough; NAEON 10 or more systems reviewed and are negative except as per HPI 10/12/24 1028 <Electronically signed by Preston Patrick MD> Cosigner Signature (if applicable): CC: ~ Signed [facility] Work Phone: [phone] 577-795004-20-2025 Progress note [facility] Medical Records Department [address] [place] [address] Progress Note - Clerk Of Scales 10/12/24 1023 MR#: [id number] Acct: [id number] Name: CHARLIE ESTRADA Rep #:[id number] : 1950 73 From: Preston Patrick MD PCP: Dr. Jannet Dey MD Status:ADM IN Location: [facility] [place] [address] Objective Data Objective Data Vital Signs: Vital Signs Last response 3 Temperature 36.4 C L 10/12/24 09:14 Temperature Source Temporal 10/12/24 09:14 Pulse Rate 67 10/12/24 09:22 Pulse Strength Normal (2+) 10/12/24 09:09 Respiratory Rate 18 10/12/24 09:14 Respiratory Effort Normal, Non-Labored 10/12/24 09:12 Respiratory Depth Normal 10/12/24 09:12 Respiratory Pattern Normal 10/12/24 09:12 Blood Pressure 113/51 L 10/12/24 09:14 Blood Pressure Mean 71 10/12/24 09:14 Blood Pressure Source Monitor 10/11/24 17:27 Blood Pressure Position Semi-Fowlers 10/11/24 17:27 Blood Pressure Location Right Arm 10/11/24 17:27 Pulse Ox 92 10/12/24 09:14 Oxygen Delivery Method High Flow 10/12/24 09:14 Oxygen Flow Rate (L/min) 3 10/12/24 09:14 I&O: I&O Last 24 Hours 3 10/11/24 10/11/24 10/12/24 11:59 23:59 11:59 Intake Total 1555 / 3305 1750 / 3305 50 / 50 Balance 1555 / 3305 1750 / 3305 50 / 50 I&O: Total Stay 3 10/11/24 03:41 thru 10/12/24 05:54 Intake Total 3355 Balance 3355 Current Meds Ordered / Administered: Current meds ordered / Administered 3 Generic Name Dose Route Start Last Admin Trade Name Freq PRN Reason Stop Dose Admin Acetaminophen 650 mg 10/11/24 06:28 Acetaminophen 325 Mg Tablet PO Q6H PRN PRN Pain 1-10 Or Fever>100.7 Acetylcysteine 800 mg 10/11/24 16:45 10/12/24 06:27 Acetylcysteine 800 Mg/4 Ml Vial.Neb. INHALATION 10/14/24 23:59 800 mg BID.RT CEM Administration Albuterol/Ipratropium 3 ml 10/11/24 16:45 10/12/24 06:27 Ipratropium/Albuterol Sulfate 3 Ml Ampul.Neb INHALATION 10/15/24 16:46 3 ml BID.RT CEM Administration Aspirin 81 mg 10/11/24 08:00 10/12/24 09:22 Aspirin E.C. 81 Mg Tablet PO 81 mg BREAKFAST CEM Administration Enoxaparin Sodium 40 mg 10/11/24 10:00 10/12/24 09:22 Enoxaparin 40 Mg/0.4 Ml Syringe SC 40 mg DAILY CEM Administration Furosemide 40 mg 10/11/24 13:50 10/12/24 09:23 Furosemide 40 Mg/4 Ml Vial IV 40 mg BIDLX CEM Administration Protocol Azithromycin 500 mg/ Sodium 255 mls @ 255 mls/hr 10/11/24 10:00 10/12/24 09:23 Chloride IV 255 mls/hr Q24 CEM Administration Piperacillin Sod/Tazobactam 50 mls @ 12.5 mls/hr 10/11/24 14:00 10/12/24 05:57 Sod 3.375 gm/ Sodium Chloride IV 12.5 mls/hr Q8 CEM Administration Melatonin 3 mg 10/11/24 06:28 Melatonin 3 Mg Tablet PO QHS PRN PRN INSOMNIA Methylprednisolone Sodium Succinate 40 mg 10/11/24 14:00 10/12/24 05:58 Methylprednisolone Sod Succ 40 Mg/Ml Vial IV 40 mg Q8 CEM Administration Metoprolol Tartrate 25 mg 10/11/24 10:00 10/12/24 09:22 Metoprolol Tartrate 25 Mg Tablet PO 25 mg BID CEM Administration Protocol Morphine Sulfate 1 mg 10/11/24 08:16 Morphine 2 Mg/Ml Syringe IV Q3H PRN PRN Pain Score 6-10 Ondansetron HCl 4 mg 10/11/24 06:28 Ondansetron 4 Mg/2 Ml Vial IV Q8H PRN PRN NAUSEA/VOMITING Oxycodone HCl 5 mg 10/11/24 08:13 10/12/24 04:26 Oxycodone 5 Mg Tablet PO 5 mg Q6H PRN PRN Administration Pain Score 6-10 Sodium Chloride 10 - 40 ml 10/11/24 06:38 10/11/24 21:41 0.9% Saline Lock 10 Ml Syringe IV 10 ml UD PRN Administration SALINE FLUSH Lab / Micro Data Attestation: I reviewed the patient's lab results. (Urine (+) strep Ag) 10/12/24 04:34 10/12/24 04:34 Labs: Laboratory Results - last 24 hr 10/11/24 04:09: NT pro BNP II 5789 H 10/11/24 08:25: Lactic Acid 4.0 H* 10/12/24 04:34: WBC 16.2 H, RBC 3.83 L, Hgb 11.9 L, Hct 36.2 L, MCV 94.5, MCH 31.1, MCHC 32.9, RDW Std Deviation 59.8 H, RDW Coeff of Silvia 17.4 H, Plt Count 180, MPV 10.6, Sodium 137, Potassium 3.8, Chloride 105, Carbon Dioxide 17.8 L, Anion Gap 14, BUN 35 H, Creatinine 1.31 H, Estim Creat Clear Calc 36.87 L, Est GFR (MDRD) Non-Af 44 L, BUN/Creatinine Ratio 26.6 H, Glucose 188 H, Calcium 8.5 Micro: Microbiology 10/11/24 13:44 Urine, Clean Catch Legionella Antigen - Final 10/11/24 13:44 Urine, Clean Catch Streptococcus pneumoniae Antigen (M - Final Streptococcus pneumonia Ag ABG Data ABG results: ABG 10/11/24 17:29 Specimen Type ART Sample Site L Radial pH 7.38 Bicarbonate Actual 18.1 L Total CO2 19 Base Excess -7 L O2 Saturation 96 O2 % 10.0 ABG pCO2 30.4 L ABG pO2 81 Gui Test Positive O2 Delivery Device Cannula Vent Mode Not entered Imaging Radiology Impression Echocardiogram 10/11/24 10:15 Interpretation Summary Normal LV size. The left ventricular ejection fraction is 60 %. Stage 1 diastolic dysfunction. Contrast injection was performed. Ordering Physician: Neisha Boston Referring Physician: Jannet Dey Performed By: Codie Pantoja, RENAE, RVT Assessment and Plan . Assessment and plan: Given the atypical appearance on CT, Strep Pneumo is unexpected, but very specific when found. Can reduce coverage to ceftriaxone and convert to PO treatment tomorrow if off O2 Continue chest expansion and physiotherapy q4h WA complete acetylcysteine neb 3d INH therapy q12h with RT Preston Patrick MD [facility] Access [facility] The entirety of this encounter was done via Telemedicine Physical Exam Const alert, oriented x3 and no apparent distress General Appearance: cooperative, well developed, ill appearing and frail HEENT normocephalic, head/scalp atraumatic and moist oral mucous membranes Eyes PERRL, EOMs intact bilaterally, conjunctivae normal and no scleral icterus Neck full ROM Lymph Lymphatic: no lymphadenopathy noted Chest inspection of chest normal Resp normal respiratory effort and no use of accessory muscles Effort and Inspection: able to speak in complete sentences Auscultation: rhonchi right upper and diminished lung sounds Cardio regular rate GI normal to inspection, nondistended, normoactive bowel sounds, soft to palpation and non-tender no CVA tenderness Extremity no clubbing, cyanosis or edema Skin no rashes or lesions noted Neuro oriented x3 and CN's II-XII intact bilaterally Psych cooperative and affect normal Subjective Subjective HPI Narrative: 73yo who presented to [facility] ED on with worsening shortness of breath andnausea with vomiting. Patient has history of mild COPD,is not on home oxygen. No prior history of COPD exacerbations requiring hospitalization. She was hospitalized last month with acute appendicitiss/p laparoscopic appendectomy. Notes that she did well below surgery and was discharged home without issue. She lives at home with 3 other family members. Notes that over the past few days she has had some upper respiratory symptoms and mild shortness of breath, but then last night it became much worse and she began to have episodes of nausea with vomiting. Denies any history of aspiration or known aspiration events. Because of the symptoms, she came into the ED for further evaluation. On arrival to the ED she was noted to hypoxic to the low to mid 80s on room air and was breathing at 30-35 times per minute. She was tachycardic to the low 100s and had a low-grade fever of 99.4F. She was placed on supplemental oxygen and given a breathing treatment with moderate improvement in herwork of breathing. CTA chest showed no PE but did show bilateral multifocal pneumonia with consolidation greatest in the right middle lobe. Labs notable for WBC count of 24, potassium 2.8 and magnesium 1.1. She was given doses of IV antibiotics and steroids for suspected pneumonia with COPD exacerbation, and hospitalist was contacted for admission. She has been in PCU, but apparently had an acute escalation of FiO2 required this AM to [id number], new CT showing brand new GGO in RUL, resolution of density in LLL. Hospitalist has escalated antibiotics for broader GN and GPC coverage. 10/11 - [id number] 10/12 - 3LNCO2, feels much better, still dry cough; NAEON 10 or more systems reviewed and are negative except as per HPI 10/12/24 1028 Cosigner Signature (if applicable): CC: ~ Signed [facility]04-19-2025 Consult note Author Preston Patrick [facility] Note Date/Time October 11, 2024 4:4 1pm [facility] Medical Records Department [address] [place] [address] Consultation - Clerk Of Scales 10/11/24 1608 MR#: [id number] Acct: [id number] Name: CHARLIE ESTRADA Rep #:[id number] : 1950 73 From: Preston Patrick MD PCP: Dr. Jannet Dey MD Status:ADM IN Location: [id number] HPI Consult Data Date of Consult: 10/11/24 HPI Narrative Reason for Consultation: Aspiration PNA; acute hypoxemic respiratory failure HPI Narrative: 73yo who presented to [facility] ED on with worsening shortness of breath and nausea with vomiting. Patient has history of mild COPD,is not on home oxygen. No prior history of COPD exacerbations requiring hospitalization. She was hospitalized last month with acute appendicitis s/p laparoscopic appendectomy. Notes that she did well below surgery and was discharged home without issue. She lives at home with 3 other family members. Notes that over the past few days she has had some upper respiratory symptoms and mild shortness of breath, but then last night it became much worse and she began to have episodes of nausea with vomiting. Denies any history of aspiration or known aspiration events. Because of the symptoms, she came into the ED for further evaluation. On arrival to the ED she was noted to hypoxic to the low to mid 80s on room air and was breathing at 30-35 times per minute. She was tachycardic to the low 100s and had a low-grade fever of 99.4F. She was placed on supplemental oxygen and given a breathing treatment with moderate improvement in her work of breathing. CTA chest showed no PE but did show bilateral multifocal pneumonia with consolidation greatest in the right middle lobe. Labs notable for WBC count of 24, potassium 2.8 and magnesium 1.1. She was given doses of IV antibiotics and steroids for suspected pneumonia with COPD exacerbation, and hospitalist was contacted for admission. She has been in PCU, but apparently had an acute escalation of FiO2 required this AM to [id number], new CT showing brand new GGO in RUL, resolution of density in LLL. Hospitalist has escalated antibiotics for broader GN and GPC coverage. [facility] Medical History Pleural effusion on left Atelectasis of left lung Postoperative urinary retention Situational insomnia Chronic anxiety Preop exam for internal medicine Acute bronchitis, unspecified COVID-19 Contact with and (suspected) exposure to other viral communicable diseases Elevated MCV Elevated hemoglobin Hypokalemia Enlarged thyroid gland Uncontrolled hypertension Breast lump Hearing problem AAA (abdominal aortic aneurysm) Rash Knee pain, chronic Hay fever Hemorrhoids HTN (hypertension) Home Medications ?Medication ?Instructions ?Recorded ?Last Taken ?Type aspirin 81 mg tablet,delayed 81 mg PO QDAY 07/28/24 Un known History release (Adult Low Dose Aspirin) metoprolol tartrate 50 mg tablet PO BP 10/11/24 Unknow n History Allergy/AdvReac Type Severity Reaction Status Date / Time NSAIDS (Non-Steroidal AdvReac Nausea Verified 10/11/24 03:43 Anti-Inflamma Family History Other Anxiety with depression Arthritis Asthma Diabetes Hyperlipemia Hypertension Surgical History History of appendectomy Status post AAA (abdominal aortic aneurysm) repair History of AAA (abdominal aortic aneurysm) repair Cataract fragments in eye following surgery Social History Smoking Status: Current every day smoker tobacco type: cigarettes alcohol intake: current alcohol intake frequency: holidays/special occasions only substance use type: does not use ROS Constitutional Constitutional: Denies body ache(s), chills, fatigue, fever(s), headache(s), malaise, night sweats or weakness Eyes Eyes: Denies blurry vision, change in vision or loss of vision ENT HEENT: Denies dizziness, dysphagia, epistaxis, headache(s), hoarseness, loss taste/smell, nasal congestion, nasal discharge or sore throat Cardiovascular Cardiovascular: Denies chest pain, claudication, dizziness, dyspnea, edema, irregular heart rhythm or lightheadedness Respiratory/Chest Respiratory/Chest: Reports cough and shortness of breath with exertion Gastrointestinal Gastrointestinal: Denies abdominal pain, diarrhea, dyspepsia, dysphagia, heartburn, hematochezia, melena, nausea or vomiting Musculoskeletal Musculoskeletal: Denies arthralgias, back pain or joint pain Integumentary Integumentary: Denies lesions, rash, skin ulcer or wounds Neurologic Neurologic: Denies abnormal gait, abnormal speech, confusion, focal weakness, loss of vision, seizure-like activity or syncope Psychiatric Psychiatric: Denies anxiety, depression, hallucinations, homicidal ideation, panic attacks or suicidal thoughts Endocrine Endocrinology: Denies fatigue, polydipsia or polyuria Hematologic/Lymphatic Hematologic/Lymphatic: Denies easy bleeding or easy bruising Allergic/Immunologic Allergic/Immunologic: Denies systems reviewed and no addt'l complaints, except as documented, as per HPI, none, GI upset w/certain foods, itchy eyes, lip swelling, seasonal rhinorrhea, rhinitis, throat swelling, tongue swelling, hives, urticaria, eczemia, wheezing, asthma or other Objective Data Objective Data Vital Signs: Vital Signs Last response 3 Temperature 36.6 C 10/11/24 10:30 Temperature Source Temporal 10/11/24 10:30 Pulse Rate 85 10/11/24 15:23 Respiratory Rate 20 H 10/11/24 15:23 Respiratory Pattern Normal 10/11/24 15:23 Blood Pressure 122/74 H 10/11/24 10:30 Blood Pressure Mean 90 10/11/24 10:30 Blood Pressure Source Monitor 10/11/24 10:30 Blood Pressure Position Semi-Fowlers 10/11/24 10:30 Blood Pressure Location Right Arm 10/11/24 10:30 Pulse Ox 96 10/11/24 10:30 Oxygen Delivery Method Room Air 10/11/24 10:30 Oxygen Flow Rate (L/min) 10 10/11/24 08:30 I&O: I&O Last 24 Hours 3 10/10/24 10/11/24 10/11/24 23:59 11:59 23:59 Intake Total 1554 / 1914 / 1914 Balance 1554 I&O: Total Stay 3 10/11/24 03:41 thru 10/11/24 12:00 Intake Total 1914 Current Meds Ordered / Administered: Current meds ordered / Administered 3 Generic Name Dose Route Start Last Admin Trade Name Freq PRN Reason Stop Dose Admin Acetaminophen 650 mg 10/11/24 06:28 Acetaminophen 325 Mg Tablet PO Q6H PRN PRN Pain 1-10 Or Fever>100.7 Albuterol/Ipratropium 3 ml 10/11/24 06:28 10/11/24 15:23 Ipratropium/Albuterol Sulfate 3 Ml Ampul.Neb INHALATION 3 ml Q4HWA.RT CEM Administration Aspirin 81 mg 10/11/24 08:00 10/11/24 08:35 Aspirin E.C. 81 Mg Tablet PO 81 mg BREAKFAST CEM Administration Enoxaparin Sodium 40 mg 10/11/24 10:00 10/11/24 08:46 Enoxaparin 40 Mg/0.4 Ml Syringe SC 40 mg DAILY CEM Administration Furosemide 40 mg 10/11/24 13:50 10/11/24 15:25 Furosemide 40 Mg/4 Ml Vial IV 40 mg BIDLX CEM Administration Protocol Azithromycin 500 mg/ Sodium 255 mls @ 255 mls/hr 10/11/24 10:00 10/11/24 10:20 Chloride IV Infused Q24 CEM Infusion Piperacillin Sod/Tazobactam 50 mls @ 12.5 mls/hr 10/11/24 14:00 10/11/24 14:46 Sod 3.375 gm/ Sodium Chloride IV 12.5 mls/hr Q8 CEM Administration Melatonin 3 mg 10/11/24 06:28 Melatonin 3 Mg Tablet PO QHS PRN PRN INSOMNIA Methylprednisolone Sodium Succinate 40 mg 10/11/24 14:00 10/11/24 15:26 Methylprednisolone Sod Succ 40 Mg/Ml Vial IV 40 mg Q8 CEM Administration Metoprolol Tartrate 25 mg 10/11/24 10:00 10/11/24 12:23 Metoprolol Tartrate 25 Mg Tablet PO 25 mg BID [facility] Administration Protocol Morphine Sulfate 1 mg 10/11/24 08:16 Morphine 2 Mg/Ml Syringe IV Q3H PRN PRN Pain Score 6-10 Ondansetron HCl 4 mg 10/11/24 06:28 Ondansetron 4 Mg/2 Ml Vial IV Q8H PRN PRN NAUSEA/VOMITING Oxycodone HCl 5 mg 10/11/24 08:13 10/11/24 15:34 Oxycodone 5 Mg Tablet PO 5 mg Q6H PRN PRN Administration Pain Score 6-10 Sodium Chloride 10 - 40 ml 10/11/24 06:38 0.9% Saline Lock 10 Ml Syringe IV UD PRN SALINE FLUSH Physical Exam Const alert, oriented x3 and no apparent distress General Appearance: cooperative, well developed, ill appearing and frail HEENT normocephalic, head/scalp atraumatic and moist oral mucous membranes Eyes PERRL, EOMs intact bilaterally, conjunctivae normal and no scleral icterus Neck full ROM Lymph Lymphatic: no lymphadenopathy noted Chest inspection of chest normal Resp normal respiratory effort and no use of accessory muscles Effort and Inspection: able to speak in complete sentences Auscultation: rhonchi right upper and diminished lung sounds Cardio regular rate GI normal to inspection, nondistended, normoactive bowel sounds, soft to palpation and non-tender no CVA tenderness Extremity no clubbing, cyanosis or edema Skin no rashes or lesions noted Neuro oriented x3 and CN's II-XII intact bilaterally Psych cooperative and affect normal Lab / Micro Data 10/11/24 04:09 10/11/24 04:09 Labs: Laboratory Results - last 24 hr 10/11/24 04:09: WBC 24.1 H, RBC 4.57, Hgb 14.4, Hct 41.8, MCV 91.5, MCH 31.5, MCHC 34.4, RDW Std Deviation 55.5 H, RDW Coeff of Silvia 17.1 H, Plt Count 208, MPV9.8, Neut % (Auto) Not Reportable, Absolute Neuts (auto) 22.7 H, Absolute Lymphs(auto) 0.70 L, Total Counted 100, Neutrophils % (Manual) 63, Band Neutrophils % 31 H, Lymphocytes % (Manual) 3 L, Monocytes % (Manual) 3, Differential Comment SCANNED, Platelet Estimate ADEQUATE, PT 17.6 H, INR 1.4, APTT 30.1, Sodium 139, Potassium 2.8 L, Chloride 103, Carbon Dioxide 20.2 L, Anion Gap 16 H, BUN 18, Creatinine 0.90, Estim Creat Clear Calc 53.67, Est GFR (MDRD) Non-Af 68, BUN/Creatinine Ratio 19.7, Glucose 139 H, Lactic Acid 2.0, Calcium 8.7, Phosphorus 3.1, Magnesium 1.1 L, NT pro BNP II 5789 H 10/11/24 08:25: Lactic Acid 4.0 H* Micro: Microbiology 10/11/24 13:44 Urine, Clean Catch Legionella Antigen - Final 10/11/24 13:44 Urine, Clean Catch Streptococcus pneumoniae Antigen (M - Final Streptococcus pneumonia Ag 10/11/24 04:20 Mucosa - Nose SARS-CoV-2, Influenza & RSV (PCR) - Final Imaging Radiology Impression Chest CTA 10/11/24 04:06 IMPRESSION: No evidence of filling defect to suggest pulmonary embolism. Findings are consistent with bilateral multifocal areas of pneumonia greatest atthe right middle lobe as described above. Clinically correlate and follow-up to resolution. Reading Location: [id number] Echocardiogram 10/11/24 10:15 Interpretation Summary Normal LV size. The left ventricular ejection fraction is 60 %. Stage 1 diastolic dysfunction. Contrast injection was performed. Ordering Physician: Neisha Boston Referring Physician: Jannet Dey Performed By: Codie Pantoja, RDCS, RVT Assessment and Plan . Assessment and plan: I agree that the CT is suggestive of the typical appearance of aspiration, but the patient is actually fairly adamant she has not choked or aspirated. Despite this, it is reasonable, given the archetypical appearance of the GGO on CT to cover for gram negative/enteric organisms with Zosyn For now, it is therefore reasonable to defer bronchoscopic evaluation, despite the atypical appearance, as she seems to have a reasonable mechanism of injury Noninvasive interventions can thus focus on chest physiotherapy, including handheld percussion or chest vest therapy q4h by RT I would recommend the addition of nebulized acetylcysteine q12h coupled with a bronchodilator to enhance her expectoration for a duration of 3-5 days She can also utilize self-directed intervention with acapella and incentive spirometry should these measures fail to progress her status, the addition of NIPPV with BIPAP 12/8cwp may be helpful Check for urine legionella and mycoplasma Ag as well Clinically, she appears nonplussed and at this time there is not clear metric tosuggest she will decompensate Preston Patrick MD [facility] Access [employer] The entirety of this encounter was done via Telemedicine 10/11/24 3971 <Electronically signed by Preston Patrick MD> Cosigner Signature (if applicable): CC: Dr. Jannet Dey MD~ Signed [facility] Work Phone: 1([phone]) 114-201104-19-2025 Progress note Author Neisha Boston [facility] Note Date/Time October 11, 2024 3:1 9pm [facility] Medical Records Department [address] [place] [address] Progress Note 10/11/24 1337 MR#: [id number] Acct: [id number] Name: CHARLIE ESTRADA Rep #[id number] : 1950 73 From: Neisha Boston MD PCP: Dr. Jannet Dey MD Status:ADM IN Location: [place] [address] Subjective Subjective Patient seen and examined. She complained of feeling short of breath. She is up to 10 L of oxygen. She tells me that yesterday she vomited after eating her breakfast and subsequently started feeling short of breath. I therefore suspectthe patient likely aspirated. She does not usually wear oxygen at home. WBC today is 24.1 and her lactic acid was also elevated at 4. Review of systems otherwise negative. Objective Data Objective Data Vital Signs: Vital Signs Temp Pulse Resp BP Pulse Ox O2 Del Method O2 Flow Rate 97.9 F 84 20 H 122/74 H 96 Room Air 10 10/11/24 10:30 10/11/24 12:23 10/11/24 11:02 10/11/24 10:30 10/11/24 10:30 10/11/24 10:30 10/11/24 08:30 Oxygen Flow Rate (L/min) 10 Oxygen Delivery Method Room Air Weight: 145 lb 8.081 oz Body Mass Index (BMI) 23.5 Intake & Output: Intake and Output for Last 24 Hours 10/09/24 10/10/24 10/11/24 23:59 23:59 23:59 Intake Total 1864 / 1864 Balance 1864 Lab / Micro Data 10/11/24 04:09 10/11/24 04:09 Labs: Laboratory Results - last 24 hr 10/11/24 04:09: WBC 24.1 H, RBC 4.57, Hgb 14.4, Hct 41.8, MCV 91.5, MCH 31.5, MCHC 34.4, RDW Std Deviation 55.5 H, RDW Coeff of Silvia 17.1 H, Plt Count 208, MPV9.8, Neut % (Auto) Not Reportable, Absolute Neuts (auto) 22.7 H, Absolute Lymphs(auto) 0.70 L, Total Counted 100, Neutrophils % (Manual) 63, Band Neutrophils % 31 H, Lymphocytes % (Manual) 3 L, Monocytes % (Manual) 3, Differential Comment SCANNED, Platelet Estimate ADEQUATE, PT 17.6 H, INR 1.4, APTT 30.1, Sodium 139, Potassium 2.8 L, Chloride 103, Carbon Dioxide 20.2 L, Anion Gap 16 H, BUN 18, Creatinine 0.90, Estim Creat Clear Calc 53.67, Est GFR (MDRD) Non-Af 68, BUN/Creatinine Ratio 19.7, Glucose 139 H, Lactic Acid 2.0, Calcium 8.7, Phosphorus 3.1, Magnesium 1.1 L, NT pro BNP II 5789 H 10/11/24 08:25: Lactic Acid 4.0 H* Micro: Microbiology 10/11/24 04:20 Mucosa - Nose SARS-CoV-2, Influenza & RSV (PCR) - Final Radiography Diagnostic Testing: Radiology Impression Chest CTA 10/11/24 04:06 IMPRESSION: No evidence of filling defect to suggest pulmonary embolism. Findings are consistent with bilateral multifocal areas of pneumonia greatest atthe right middle lobe as described above. Clinically correlate and follow-up to resolution. Reading Location: [facility] Echocardiogram 10/11/24 10:15 Interpretation Summary Normal LV size. The left ventricular ejection fraction is 60 %. Stage 1 diastolic dysfunction. Contrast injection was performed. Ordering Physician: Neisha Boston Referring Physician: Jannet Dey Performed By: Codie Pantoja, RENAE, RVT Physical Exam Const alert, oriented x3 and no apparent distress General Appearance: cooperative and well developed HEENT normocephalic, head/scalp atraumatic, moist oral mucous membranes, oropharynx normal and gingiva normal Eyes PERRL and EOMs intact bilaterally Neck no lymphadenopathy and supple General: trachea midline Lymph Lymphatic: no lymphadenopathy noted Resp Resp Narrative: moderately diminished breath sounds in mid and lower lung nunez, no wheezes or crackles. On 10L of oxygen by nasal canula. Cardio regular rate, regular rhythm, S1 normal heart sound, S2 normal heart sound and no murmurs GI normal to inspection, nondistended, normoactive bowel sounds, soft to palpation,non-tender and non-distended Extremity normal capillary refill, no clubbing, cyanosis or edema and no calf tenderness General Extremity: no tenderness to palpation of joints or extremities Skin General Skin Exam: no breakdown Neuro CN's II-XII intact bilaterally, no focal motor deficits and no sensory deficits noted Motor Exam: strength 5/5 throughout and general weakness Psych thought process normal and cooperative Appearance: appropriate Assessment & Plan Assessment/Plan (1) Hypoxia: (2) Multifocal pneumonia: (3) Acute respiratory failure with hypoxia: PLAN: Plan #Acute hypoxic respiratory failure due to probable aspiration pneumonia * Now requiring 10 L of oxygen. * Says she vomited after her breakfast yesterday and subsequently started feeling short of breath. WBC is elevated at 24.1 and her lactic acid was 4 also today. * CT chest showed evidence of multifocal pneumonia. * On IV ceftriaxone and azithromycin. Consult pulmonology. Will broaden antibiotics to IV Zosyn. * Breathing treatments and bronchodilators. Titrate oxygen to maintain saturation above 90%. Will get ABG. * #Sepsis due to aspiration pneumonia: Management as above. #Hypokalemia: Potassium is 2.8. Will replace aggressively and trend. #Probable acute heart failure: * EF is unknown. proBNP is 5789 and 2D echo showed EF of 60% with stage I diastolic dysfunction and no regional wall motion abnormalities noted. He has stage I diastolic dysfunction. * Will diurese with IV Lasix 40 mg twice daily as fluid overload is likely also contributing to the hypoxia. * Hypertension: on metoprolol DVT prophylaxis: lovenox COde status: full code Charges/Coding Visit Charges Inpatient E&M: 39196 Subs Hosp L3 10/11/24 1519 <Electronically signed by Neisha Boston MD> Neisha Boston MD Cosigner Signature (if applicable): CC: ~ Signed [facility] Work Phone: [phone] 448-870104-19-2025 Consult note [facility] Medical Records Department [address] [place] [address] Consultation - Clerk Of Scales 10/11/24 1608 MR#: [id number] Acct: [id number] Name: CHARLIE ESTRADA Rep #:[id number] : 1950 73 From: Preston Patrick MD PCP: Dr. Jannet Dey MD Status:ADM IN Location: [place] [address] HPI Consult Data Date of Consult: 10/11/24 HPI Narrative Reason for Consultation: Aspiration PNA; acute hypoxemic respiratory failure HPI Narrative: 73yo who presented to [facility] ED on with worsening shortness of breath andnausea with vomiting. Patient has history of mild COPD,is not on home oxygen. No prior history of COPD exacerbations requiring hospitalization. She was hospitalized last month with acute appendicitiss/p laparoscopic appendectomy. Notes that she did well below surgery and was discharged home without issue. She lives at home with 3 other family members. Notes that over the past few days she has had some upper respiratory symptoms and mild shortness of breath, but then last night it became much worse and she began to have episodes of nausea with vomiting. Denies any history of aspiration or known aspiration events. Because of the symptoms, she came into the ED for further evaluation. On arrival to the ED she was noted to hypoxic to the low to mid 80s on room air and was breathing at 30-35 times per minute. She was tachycardic to the low 100s and had a low-grade fever of 99.4F. She was placed on supplemental oxygen and given a breathing treatment with moderate improvement in herwork of breathing. CTA chest showed no PE but did show bilateral multifocal pneumonia with consolidation greatest in the right middle lobe. Labs notable for WBC count of 24, potassium 2.8 and magnesium 1.1. She was given doses of IV antibiotics and steroids for suspected pneumonia with COPD exacerbation, and hospitalist was contacted for admission. She has been in PCU, but apparently had an acute escalation of FiO2 required this AM to [id number], new CT showing brand new GGO in RUL, resolution of density in LLL. Hospitalist has escalated antibiotics for broader GN and GPC coverage. [facility] Medical History Pleural effusion on left Atelectasis of left lung Postoperative urinary retention Situational insomnia Chronic anxiety Preop exam for internal medicine Acute bronchitis, unspecified COVID-19 Contact with and (suspected) exposure to other viral communicable diseases Elevated MCV Elevated hemoglobin Hypokalemia Enlarged thyroid gland Uncontrolled hypertension Breast lump Hearing problem AAA (abdominal aortic aneurysm) Rash Knee pain, chronic Hay fever Hemorrhoids HTN (hypertension) Home Medications ?Medication ?Instructions ?Recorded ?Last Taken ?Type aspirin 81 mg tablet,delayed 81 mg PO QDAY 07/28/24 Un known History release (Adult Low Dose Aspirin) metoprolol tartrate 50 mg tablet PO BP 10/11/24 Unknow n History Allergy/AdvReac Type Severity Reaction Status Date / Time NSAIDS (Non-Steroidal AdvReac Nausea Verified 10/11/24 03:43 Anti-Inflamma Family History Other Anxiety with depression Arthritis Asthma Diabetes Hyperlipemia Hypertension Surgical History History of appendectomy Status post AAA (abdominal aortic aneurysm) repair History of AAA (abdominal aortic aneurysm) repair Cataract fragments in eye following surgery Social History Smoking Status: Current every day smoker tobacco type: cigarettes alcohol intake: current alcohol intake frequency: holidays/special occasions only substance use type: does not use ROS Constitutional Constitutional: Denies body ache(s), chills, fatigue, fever(s), headache(s), malaise, night sweats or weakness Eyes Eyes: Denies blurry vision, change in vision or loss of vision ENT HEENT: Denies dizziness, dysphagia, epistaxis, headache(s), hoarseness, loss taste/smell, nasal congestion, nasal discharge or sore throat Cardiovascular Cardiovascular: Denies chest pain, claudication, dizziness, dyspnea, edema, irregular heart rhythm or lightheadedness Respiratory/Chest Respiratory/Chest: Reports cough and shortness of breath with exertion Gastrointestinal Gastrointestinal: Denies abdominal pain, diarrhea, dyspepsia, dysphagia, heartburn, hematochezia, melena, nausea or vomiting Musculoskeletal Musculoskeletal: Denies arthralgias, back pain or joint pain Integumentary Integumentary: Denies lesions, rash, skin ulcer or wounds Neurologic Neurologic: Denies abnormal gait, abnormal speech, confusion, focal weakness, loss of vision, seizure-like activity or syncope Psychiatric Psychiatric: Denies anxiety, depression, hallucinations, homicidal ideation, panic attacks or suicidal thoughts Endocrine Endocrinology: Denies fatigue, polydipsia or polyuria Hematologic/Lymphatic Hematologic/Lymphatic: Denies easy bleeding or easy bruising Allergic/Immunologic Allergic/Immunologic: Denies systems reviewed and no addt'l complaints, except as documented, as per HPI, none, GI upset w/certain foods, itchy eyes, lip swelling, seasonal rhinorrhea, rhinitis, throat swelling, tongue swelling, hives, urticaria, eczemia, wheezing, asthma or other Objective Data Objective Data Vital Signs: Vital Signs Last response 3 Temperature 36.6 C 10/11/24 10:30 Temperature Source Temporal 10/11/24 10:30 Pulse Rate 85 10/11/24 15:23 Respiratory Rate 20 H 10/11/24 15:23 Respiratory Pattern Normal 10/11/24 15:23 Blood Pressure 122/74 H 10/11/24 10:30 Blood Pressure Mean 90 10/11/24 10:30 Blood Pressure Source Monitor 10/11/24 10:30 Blood Pressure Position Semi-Fowlers 10/11/24 10:30 Blood Pressure Location Right Arm 10/11/24 10:30 Pulse Ox 96 10/11/24 10:30 Oxygen Delivery Method Room Air 10/11/24 10:30 Oxygen Flow Rate (L/min) 10 10/11/24 08:30 I&O: I&O Last 24 Hours 3 10/10/24 10/11/24 10/11/24 23:59 11:59 23:59 Intake Total 1554 Balance 1554 I&O: Total Stay 3 10/11/24 03:41 thru 10/11/24 12:00 Intake Total 1914 Current Meds Ordered / Administered: Current meds ordered / Administered 3 Generic Name Dose Route Start Last Admin Trade Name Freq PRN Reason Stop Dose Admin Acetaminophen 650 mg 10/11/24 06:28 Acetaminophen 325 Mg Tablet PO Q6H PRN PRN Pain 1-10 Or Fever>100.7 Albuterol/Ipratropium 3 ml 10/11/24 06:28 10/11/24 15:23 Ipratropium/Albuterol Sulfate 3 Ml Ampul.Neb INHALATION 3 ml Q4HWA.RT CEM Administration Aspirin 81 mg 10/11/24 08:00 10/11/24 08:35 Aspirin E.C. 81 Mg Tablet PO 81 mg BREAKFAST CEM Administration Enoxaparin Sodium 40 mg 10/11/24 10:00 10/11/24 08:46 Enoxaparin 40 Mg/0.4 Ml Syringe SC 40 mg DAILY CEM Administration Furosemide 40 mg 10/11/24 13:50 10/11/24 15:25 Furosemide 40 Mg/4 Ml Vial IV 40 mg BIDLX CEM Administration Protocol Azithromycin 500 mg/ Sodium 255 mls @ 255 mls/hr 10/11/24 10:00 10/11/24 10:20 Chloride IV Infused Q24 CEM Infusion Piperacillin Sod/Tazobactam 50 mls @ 12.5 mls/hr 10/11/24 14:00 10/11/24 14:46 Sod 3.375 gm/ Sodium Chloride IV 12.5 mls/hr Q8 CEM Administration Melatonin 3 mg 10/11/24 06:28 Melatonin 3 Mg Tablet PO QHS PRN PRN INSOMNIA Methylprednisolone Sodium Succinate 40 mg 10/11/24 14:00 10/11/24 15:26 Methylprednisolone Sod Succ 40 Mg/Ml Vial IV 40 mg Q8 CEM Administration Metoprolol Tartrate 25 mg 10/11/24 10:00 10/11/24 12:23 Metoprolol Tartrate 25 Mg Tablet PO 25 mg BID CEM Administration Protocol Morphine Sulfate 1 mg 10/11/24 08:16 Morphine 2 Mg/Ml Syringe IV Q3H PRN PRN Pain Score 6-10 Ondansetron HCl 4 mg 10/11/24 06:28 Ondansetron 4 Mg/2 Ml Vial IV Q8H PRN PRN NAUSEA/VOMITING Oxycodone HCl 5 mg 10/11/24 08:13 10/11/24 15:34 Oxycodone 5 Mg Tablet PO 5 mg Q6H PRN PRN Administration Pain Score 6-10 Sodium Chloride 10 - 40 ml 10/11/24 06:38 0.9% Saline Lock 10 Ml Syringe IV UD PRN SALINE FLUSH Physical Exam Const alert, oriented x3 and no apparent distress General Appearance: cooperative, well developed, ill appearing and frail HEENT normocephalic, head/scalp atraumatic and moist oral mucous membranes Eyes PERRL, EOMs intact bilaterally, conjunctivae normal and no scleral icterus Neck full ROM Lymph Lymphatic: no lymphadenopathy noted Chest inspection of chest normal Resp normal respiratory effort and no use of accessory muscles Effort and Inspection: able to speak in complete sentences Auscultation: rhonchi right upper and diminished lung sounds Cardio regular rate GI normal to inspection, nondistended, normoactive bowel sounds, soft to palpation and non-tender no CVA tenderness Extremity no clubbing, cyanosis or edema Skin no rashes or lesions noted Neuro oriented x3 and CN's II-XII intact bilaterally Psych cooperative and affect normal Lab / Micro Data 10/11/24 04:09 10/11/24 04:09 Labs: Laboratory Results - last 24 hr 10/11/24 04:09: WBC 24.1 H, RBC 4.57, Hgb 14.4, Hct 41.8, MCV 91.5, MCH 31.5, MCHC 34.4, RDW Std Deviation 55.5 H, RDW Coeff of Silvia 17.1 H, Plt Count 208, MPV9.8, Neut % (Auto) Not Reportable, Absolute Neuts (auto) 22.7 H, Absolute Lymphs(auto) 0.70 L, Total Counted 100, Neutrophils % (Manual) 63, Band Neutrophils % 31 H, Lymphocytes % (Manual) 3 L, Monocytes % (Manual) 3, Differential Comment SCANNED, Platelet Estimate ADEQUATE, PT 17.6 H, INR 1.4, APTT 30.1, Sodium 139, Potassium 2.8 L, Chloride 103, Carbon Dioxide 20.2 L, Anion Gap 16 H, BUN 18, Creatinine 0.90, Estim Creat Clear Calc 53.67, Est GFR (MDRD) Non-Af 68, BUN/Creatinine Ratio 19.7, Glucose 139 H, Lactic Acid 2.0, Calcium 8.7,Phosphorus 3.1, Magnesium 1.1 L, NT pro BNP II 5789 H 10/11/24 08:25: Lactic Acid 4.0 H* Micro: Microbiology 10/11/24 13:44 Urine, Clean Catch Legionella Antigen - Final 10/11/24 13:44 Urine, Clean Catch Streptococcus pneumoniae Antigen (M - Final Streptococcus pneumonia Ag 10/11/24 04:20 Mucosa - Nose SARS-CoV-2, Influenza & RSV (PCR) - Final Imaging Radiology Impression Chest CTA 10/11/24 04:06 IMPRESSION: No evidence of filling defect to suggest pulmonary embolism. Findings are consistent with bilateral multifocal areas of pneumonia greatest atthe right middle lobe as described above. Clinically correlate and follow-up to resolution. Reading Location: [id number] Echocardiogram 10/11/24 10:15 Interpretation Summary Normal LV size. The left ventricular ejection fraction is 60 %. Stage 1 diastolic dysfunction. Contrast injection was performed. Ordering Physician: Neisha Boston Referring Physician: Jannet Dey Performed By: Codie Pantoja, RDCS, RVT Assessment and Plan . Assessment and plan: I agree that the CT is suggestive of the typical appearance of aspiration, but the patient is actually fairly adamant she has not choked or aspirated. Despite this, it is reasonable, given the archetypical appearance of the GGO on CT to cover for gram negative/enteric organisms with Zosyn For now, it is therefore reasonable to defer bronchoscopic evaluation, despite the atypical appearance, as she seems to have a reasonable mechanism of injury Noninvasive interventions can thus focus on chest physiotherapy, including handheld percussion or chest vest therapy q4h by RT I would recommend the addition of nebulized acetylcysteine q12h coupled with a bronchodilator to enhance her expectoration for a duration of 3-5 days She can also utilize self-directed intervention with acapella and incentive spirometry should these measures fail to progress her status, the addition of NIPPV with BIPAP 12/8cwp may be helpful Check for urine legionella and mycoplasma Ag as well Clinically, she appears nonplussed and at this time there is not clear metric tosuggest she will decompensate Preston Patrick MD [facility] The entirety of this encounter was done via Telemedicine 10/11/24 1641 Cosigner Signature (if applicable): CC: Dr. Jannet Dey MD~ Signed [facility]04-19-2025 Progress note [facility] Medical Records Department [address] [place] [address] Progress Note 10/11/24 1337 MR#: [id number] Acct: [id number] Name: CHARLIE ESTRADA Rep #:[id number] : 1950 73 From: Neisha Boston MD PCP: Dr. Jannet Dey MD Status:ADM IN Location: [place] [address] Subjective Subjective Patient seen and examined. She complained of feeling short of breath. She is up to 10 L of oxygen. She tells me that yesterday she vomited after eating her breakfast and subsequently started feeling short of breath. I therefore suspectthe patient likely aspirated. She does not usually wear oxygen at home. WBC today is 24.1 and her lactic acid was also elevated at 4. Review of systems otherwise negative. Objective Data Objective Data Vital Signs: Vital Signs Temp Pulse Resp BP Pulse Ox O2 Del Method O2 Flow Rate 97.9 F 84 20 H 122/74 H 96 Room Air 10 10/11/24 10:30 10/11/24 12:23 10/11/24 11:02 10/11/24 10:30 10/11/24 10:30 10/11/24 10:30 10/11/24 08:30 Oxygen Flow Rate (L/min) 10 Oxygen Delivery Method Room Air Weight: 145 lb 8.081 oz Body Mass Index (BMI) 23.5 Intake & Output: Intake and Output for Last 24 Hours 10/09/24 10/10/24 10/11/24 23:59 23:59 23:59 Intake Total 1864 / 1864 Balance 1864 Lab / Micro Data 10/11/24 04:09 10/11/24 04:09 Labs: Laboratory Results - last 24 hr 10/11/24 04:09: WBC 24.1 H, RBC 4.57, Hgb 14.4, Hct 41.8, MCV 91.5, MCH 31.5, MCHC 34.4, RDW Std Deviation 55.5 H, RDW Coeff of Silvia 17.1 H, Plt Count 208, MPV9.8, Neut % (Auto) Not Reportable, Absolute Neuts (auto) 22.7 H, Absolute Lymphs(auto) 0.70 L, Total Counted 100, Neutrophils % (Manual) 63, Band Neutrophils % 31 H, Lymphocytes % (Manual) 3 L, Monocytes % (Manual) 3, Differential Comment SCANNED, Platelet Estimate ADEQUATE, PT 17.6 H, INR 1.4, APTT 30.1, Sodium 139, Potassium 2.8 L, Chloride 103, Carbon Dioxide 20.2 L, Anion Gap 16 H, BUN 18, Creatinine 0.90, Estim Creat Clear Calc 53.67, Est GFR (MDRD) Non-Af 68, BUN/Creatinine Ratio 19.7, Glucose 139 H, Lactic Acid 2.0, Calcium 8.7,Phosphorus 3.1, Magnesium 1.1 L, NT pro BNP II 5789 H 10/11/24 08:25: Lactic Acid 4.0 H* Micro: Microbiology 10/11/24 04:20 Mucosa - Nose SARS-CoV-2, Influenza & RSV (PCR) - Final Radiography Diagnostic Testing: Radiology Impression Chest CTA 10/11/24 04:06 IMPRESSION: No evidence of filling defect to suggest pulmonary embolism. Findings are consistent with bilateral multifocal areas of pneumonia greatest atthe right middle lobe as described above. Clinically correlate and follow-up to resolution. Reading Location: [id number] Echocardiogram 10/11/24 10:15 Interpretation Summary Normal LV size. The left ventricular ejection fraction is 60 %. Stage 1 diastolic dysfunction. Contrast injection was performed. Ordering Physician: Neisha Boston Referring Physician: Jannet Dey Performed By: Codie Pantoja, RENAE, RVT Physical Exam Const alert, oriented x3 and no apparent distress General Appearance: cooperative and well developed HEENT normocephalic, head/scalp atraumatic, moist oral mucous membranes, oropharynx normal and gingiva normal Eyes PERRL and EOMs intact bilaterally Neck no lymphadenopathy and supple General: trachea midline Lymph Lymphatic: no lymphadenopathy noted Resp Resp Narrative: moderately diminished breath sounds in mid and lower lung nunez, no wheezes or crackles. On 10L ofoxygen by nasal canula. Cardio regular rate, regular rhythm, S1 normal heart sound, S2 normal heart sound and no murmurs GI normal to inspection, nondistended, normoactive bowel sounds, soft to palpation,non-tender and non-distended Extremity normal capillary refill, no clubbing, cyanosis or edema and no calf tenderness General Extremity: no tenderness to palpation of joints or extremities Skin General Skin Exam: no breakdown Neuro CN's II-XII intact bilaterally, no focal motor deficits and no sensory deficits noted Motor Exam: strength 5/5 throughout and general weakness Psych thought process normal and cooperative Appearance: appropriate Assessment & Plan Assessment/Plan (1) Hypoxia: (2) Multifocal pneumonia: (3) Acute respiratory failure with hypoxia: PLAN: Plan #Acute hypoxic respiratory failure due to probable aspiration pneumonia * Now requiring 10 L of oxygen. * Says she vomited after her breakfast yesterday and subsequently started feeling short of breath. WBC is elevated at 24.1 and her lactic acid was 4 also today. * CT chest showed evidence of multifocal pneumonia. * On IV ceftriaxone and azithromycin. Consult pulmonology. Will broaden antibiotics to IV Zosyn. * Breathing treatments and bronchodilators. Titrate oxygen to maintain saturation above 90%. Will get ABG. * #Sepsis due to aspiration pneumonia: Management as above. #Hypokalemia: Potassium is 2.8. Will replace aggressively and trend. #Probable acute heart failure: * EF is unknown. proBNP is 5789 and 2D echo showed EF of 60% with stage I diastolic dysfunction andno regional wall motion abnormalities noted. He has stage I diastolic dysfunction. * Will diurese with IV Lasix 40 mg twice daily as fluid overload is likely also contributing to thehypoxia. * Hypertension: on metoprolol DVT prophylaxis: lovenox COde status: full code Charges/Coding Visit Charges Inpatient E&M: 78606 Subs Hosp L3 10/11/24 1519 Neisha Boston MD Cosigner Signature (if applicable): CC: ~ Signed [facility]04-19-2025 History and physical note Author Nikolai Mejia [facility] Note Date/Time October 11, 2024 6:4 4am [facility] Medical Records Department [address] [place] [address] H&P Exam - Hospitalist 10/11/24 0534 MR#: [id number] Acct: [id number] Name: CHARLIE ESTRADA Rep #:[id number] : 1950 73 From: Nikolai waters DO PCP: Dr. Jannet Dey MD Status:ADM IN Location: [facility] [id number] HPI - General General Date of Admission: 10/11/24 Date of Service: 10/11/24 Chief Complaint: Shortness of breath and nausea with vomiting HPI Narrative CHARLIE ESTRADA, is a 73 F who presented to [facility] ED with worsening shortness of breath and nausea with vomiting. Patient has history of mild COPD, is not on home oxygen. No prior history of COPD exacerbations requiring hospitalization. She was hospitalized last month with acute appendicitis s/p laparoscopic appendectomy. Notes that she did well belowsurgery and was discharged home without issue. She lives at home with 3 other family members. Notes that over the past few days she has had some upper respiratory symptoms and mild shortness of breath, but then last night it becamemuch worse and she began to have episodes of nausea with vomiting. Denies any history of aspiration or known aspiration events. Because of the symptoms, she came into the ED for further evaluation. On arrival to the ED she was noted to hypoxic to the low to mid 80s on room air and was breathing at 30-35 times per minute. She was tachycardic to the low 100s and had a low-grade fever of 99.4F. She was placed on supplemental oxygen and given a breathing treatment with moderate improvement in her work of breathing. CTA chest showed no PE but did show bilateral multifocal pneumonia with consolidation greatest in the right middle lobe. Labs notable for WBC count of 24, potassium 2.8 and magnesium 1.1. She was given doses of IV antibiotics and steroids for suspected pneumonia with COPD exacerbation, and hospitalist was contacted for admission. I saw the patient at bedside in the ED. Patient was fatigued appearing but otherwise laying back comfortably in bed and breathing comfortably on 4 L nasal cannula at rest. She notably was reporting right-sided chest pain when she camein as well and was given a dose of IV pain medication with some improvement. Noted to me that she felt very fatigued and simply wanted to sleep. She denied any cough or sputum production to this point. She is a current smoker, smokes about 5 cigarettes/day. States she was smoking more heavily than this until herappendectomy 1 month ago. She also reports drinking vodka but states she only has about 3 drinks per week. She currently denies any fevers or chills. No other acute concerns at this time. [facility] Medical History (Updated 10/11/24 @ 06:[address] Nikolai Mejia DO) Pleural effusion on left Atelectasis of left lung Postoperative urinary retention Situational insomnia Chronic anxiety Preop exam for internal medicine Acute bronchitis, unspecified COVID-19 Contact with and (suspected) exposure to other viral communicable diseases Elevated MCV Elevated hemoglobin Hypokalemia Enlarged thyroid gland Uncontrolled hypertension Breast lump Hearing problem AAA (abdominal aortic aneurysm) Rash Knee pain, chronic Hay fever Hemorrhoids HTN (hypertension) Home Medications ?Medication ?Instructions ?Recorded ?Last Taken ?Type aspirin 81 mg tablet,delayed 81 mg PO QDAY 07/28/24 Un known History release (Adult Low Dose Aspirin) Allergy/AdvReac Type Severity Reaction Status Date / Time NSAIDS (Non-Steroidal AdvReac Nausea Verified 10/11/24 03:43 Anti-Inflamma Family History Other Anxiety with depression Arthritis Asthma Diabetes Hyperlipemia Hypertension Surgical History (Updated 10/11/24 @ 06:[address] Preston Jimenez DO) History of appendectomy Status post AAA (abdominal aortic aneurysm) repair History of AAA (abdominal aortic aneurysm) repair Cataract fragments in eye following surgery Social History Smoking Status: Current every day smoker tobacco type: cigarettes alcohol intake: current alcohol intake frequency: holidays/special occasions only substance use type: does not use ROS Constitutional Constitutional: Reports fatigue and malaise; Denies chills, fever(s) or weakness Eyes Eyes: Denies change in vision Cardiovascular Cardiovascular: Reports dyspnea on exertion; Denies chest pain, edema or palpitations Respiratory/Chest Respiratory/Chest: Reports cough, shortness of breath at rest and shortness of breath with exertion; Denies productive cough or wheezing Gastrointestinal Gastrointestinal: Reports nausea and vomiting; Denies abdominal pain, constipation or diarrhea Genitourinary Genitourinary: Denies dysuria Musculoskeletal Musculoskeletal: Denies arthralgias or myalgias Neurologic Neurologic: Denies dizziness or headache(s) Vital Signs Vital Signs Vital Signs: 10/11/24 03:43 10/11/24 03:43 10/11/24 03:48 Temperature 99.4 F H 99.4 F H Temperature Source Oral Oral Pulse Rate 108 H 105 H Respiratory Rate 26 H 26 H Blood Pressure 143/80 H 143/80 H Blood Pressure Mean 101 101 Pulse Ox 85 90 90 Oxygen Delivery Method Room Air Nasal Cannula Nasal Cannula Oxygen Flow Rate (L/min) 2 10/11/24 04:15 10/11/24 04:20 10/11/24 04:36 Temperature Temperature Source Pulse Rate 86 Respiratory Rate 33 H Blood Pressure Blood Pressure Mean Pulse Ox 85 92 Oxygen Delivery Method Nasal Cannula Nasal Cannula Oxygen Flow Rate (L/min) 2 4 10/11/24 04:36 10/11/24 04:48 Temperature 98.6 F Temperature Source Oral Pulse Rate 86 Respiratory Rate 18 Blood Pressure 119/61 Blood Pressure Mean 80 Pulse Ox 90 91 Oxygen Delivery Method Nasal Cannula Nasal Cannula Oxygen Flow Rate (L/min) 4 4 Weight Weight: 66.4 kg Body Mass Index (BMI) 23.6 Physical Exam Const alert, oriented x3, no apparent distress and average body habitus Constitutional Narrative: Elderly female, fatigued appearing but otherwise laying back comfortably in bed,conversing normally and in no acute distress. General Appearance: cooperative and comfortable HEENT normocephalic, head/scalp atraumatic, hearing grossly normal bilaterally, nasal mucous membranes and turbinates normal and moist oral mucous membranes Eyes PERRL, EOMs intact bilaterally and conjunctivae normal Neck full ROM Chest inspection of chest normal Resp normal respiratory effort and no use of accessory muscles Resp Narrative: Breathing comfortably on 4 L nasal cannula at rest. Mild wheezing noted in upper airways bilaterally and mild crackles noted in right middle lung area. Otherwise good breath sounds bilaterally throughout. Cardio regular rate, regular rhythm, no murmurs and peripheral pulses 2+ throughout GI normal to inspection, nondistended, normoactive bowel sounds, soft to palpation,non-tender and non-distended Back/Spine normal ROM Extremity normal to inspection, full ROM and no pedal edema Skin no rashes or lesions noted Psych mental status grossly normal Results Lab / Micro Data 10/11/24 04:09 10/11/24 04:09 Labs: Laboratory Results - last 24 hr 10/11/24 04:09: WBC 24.1 H, RBC 4.57, Hgb 14.4, Hct 41.8, MCV 91.5, MCH 31.5, MCHC 34.4, RDW Std Deviation 55.5 H, RDW Coeff of Silvia 17.1 H, Plt Count 208, MPV9.8, Neut % (Auto) Not Reportable, Absolute Neuts (auto) 22.7 H, Absolute Lymphs(auto) 0.70 L, Total Counted 100, Neutrophils % (Manual) 63, Band Neutrophils % 31 H, Lymphocytes % (Manual) 3 L, Monocytes % (Manual) 3, Differential Comment SCANNED, Platelet Estimate ADEQUATE, PT 17.6 H, INR 1.4, APTT 30.1, Sodium 139, Potassium 2.8 L, Chloride 103, Carbon Dioxide 20.2 L, Anion Gap 16 H, BUN 18, Creatinine 0.90, Estim Creat Clear Calc 53.67, Est GFR (MDRD) Non-Af 68, BUN/Creatinine Ratio 19.7, Glucose 139 H, Lactic Acid 2.0, Calcium 8.7, Magnesium 1.1 L Micro: Microbiology 10/11/24 04:20 Mucosa - Nose SARS-CoV-2, Influenza & RSV (PCR) - Final Assessment & Plan Assessment/Plan (1) Multifocal pneumonia: (2) COPD with acute exacerbation: (3) Hypoxia: PLAN: Plan Patient is a 73-year-old female who presented [facility] ED on 10/11/24 with worsening shortness of breath and nausea with vomiting. 1. Community-acquired pneumonia and mild COPD exacerbation with hypoxia ? Admit under inpatient status to PCU. CTA chest on admit showed bilateral multifocal pneumonia with consolidation greatest in the right middle lobe. WBC count 24 and low-grade fever noted in ED. Not on home oxygen, no prior history of severe COPD exacerbations. Suspect patient was at high risk for developing pneumonia given recent appendicitis and likely shallow breathing postoperatively, along with recent AAA repair in May and need for supplemental oxygen postrepair due to significant atelectasis. Sputum culture and urine antigens ordered. Will treat with IV antibiotics, IV steroids and scheduled DuoNebs for now. Wean supplemental oxygen as able. 2. Hypokalemia, hypomagnesemia ? Potassium 2.8, magnesium 1.1 on admit. Phosphorus pending. Suspect primarilydue to GI losses and recent poor p.o. intake. However, alcohol use could also be contributing. Will replete as needed. 3. Tobacco use ? Current smoker, smokes about 5 cigarettes/day. Has been smoking only 5/day since her appendectomy 1 month ago. Longtime smoker and prior to that procedurewas smoking 10 to 20 cigarettes daily. Denied need for nicotine replacement therapy at this time. Encouraged cessation on discharge. 4. Alcohol use ? Patient reports drinking about 3 glasses of vodka on a weekly basis. However,have some concern she may be underreporting this given her electrolytes on admission. Will place on CIWA protocol without medications for now. 5. Hypertension ? Per recent notes, was on amlodipine and metoprolol prior to AAA repair. Bloodpressures were running somewhat low after that so these were held. Appears thatLopressor was restarted at 25 mg twice daily on 07/28. Will continue home Lopressor at this time. 6. Recent acute appendicitis s/p appendectomy ? Had laparoscopic appendectomy done with Dr. Smiley on 09/06. Tolerated procedure well, no intraoperative or postoperative complications. Discharged home on 09/07 without issue. 7. History of AAA with recent repair ? Had type IV thoracoabdominal AAA repair with graft done at [facility] on 05/27. Did have postoperative hypoxia requiring home supplemental oxygen for a few weeks. Was suspected this was due to atelectasis. Has been off supplemental oxygen now since mid June. No inpatient needs, continue outpatient follow-up. DVT prophylaxis: Lovenox CODE STATUS: Full code, verified Expected disposition: Home, 2 to 3 days Total clinical time spent by myself addressing the patient's medical issues, reviewing all the data, and collaborating with patient's care team: 75 minutes. Charges/Coding Visit Charges Inpatient E&M: 19011 Init Hosp L3 10/11/24 0644 <Electronically signed by Nikolai Mejia DO> Cosigner Signature (if applicable): CC: Dr. Nikolai Mejia DO; Dr. Jannet Dey MD~ Signed [facility] Work Phone: [phone] [phone] Discharge summary Author Preston Jimenez [facility] Note Date/Time October 11, 2024 6:2 2am [facility] Medical Records Department [address] [place] [address] Emergency Department Summary 10/11/24 MR#: [id number] Acct: [id number] Name: CHARLIE ESTRADA Rep #:[id number] : 1950 73 From: Preston Jimenez DO PCP: Dr. Jannet Dey MD Status:ADM IN Location: [place] [address] HPI History of Present Illness Chief Complaint: Nausea/Vomiting Informant: patient and family Narrative Narrative: Patient is a 73-year-old female with past medical history of abdominal aortic aneurysm status postrepair in May 2024 and COPD but no reported need for supplemental oxygen. Patient reports she has had chronic back pain ever since her aneurysm repair. However in the last 2 to 3 days she has had increased congestion cough shortness of breath and back pain. She states that the symptoms got severe tonight where she felt she could not take it any longer and therefore she was brought into the ER for evaluation. She does state that she has been in and out of nursing homes recently visiting friends and that someone from a snf who was recently discharged from there has been living with her and he has been sick [facility] Medical History (Updated 10/11/24 @ 06:[address] Preston Jimenez DO) Pleural effusion on left Atelectasis of left lung Postoperative urinary retention Situational insomnia Chronic anxiety Preop exam for internal medicine Acute bronchitis, unspecified COVID-19 Contact with and (suspected) exposure to other viral communicable diseases Elevated MCV Elevated hemoglobin Hypokalemia Enlarged thyroid gland Uncontrolled hypertension Breast lump Hearing problem AAA (abdominal aortic aneurysm) Rash Knee pain, chronic Hay fever Hemorrhoids HTN (hypertension) Home Medications ?Medication ?Instructions ?Recorded ?Last Taken ?Type aspirin 81 mg tablet,delayed 81 mg PO QDAY 07/28/24 Un known History release (Adult Low Dose Aspirin) Allergy/AdvReac Type Severity Reaction Status Date / Time NSAIDS (Non-Steroidal AdvReac Nausea Verified 10/11/24 03:43 Anti-Inflamma Family History Other Anxiety with depression Arthritis Asthma Diabetes Hyperlipemia Hypertension Surgical History (Updated 10/11/24 @ 06:[address] Preston Jimenez DO) History of appendectomy Status post AAA (abdominal aortic aneurysm) repair History of AAA (abdominal aortic aneurysm) repair Cataract fragments in eye following surgery Social History Smoking Status: Current every day smoker tobacco type: cigarettes alcohol intake: current alcohol intake frequency: holidays/special occasions only substance use type: does not use ROS ROS ED Constitutional Constitutional ED: Denies chills or fever(s) Eyes Eyes: Denies change in vision ENT ENT ED: Denies sore throat Cardiovascular Cardiovascular: Reports racing heartbeat; Denies chest pain or palpitations Respiratory/Chest Respiratory/Chest: Reports cough and dyspnea Gastrointestinal Gastrointestinal: Denies abdominal pain, diarrhea, nausea or vomiting Genitourinary Genitourinary ED: Denies dysuria Musculoskeletal Musculoskeletal: Reports back pain Integumentary Denies rash Neurologic Neurologic: Denies headache(s) Hematologic/Lymphatic Hematologic/Lymphatic: Denies easy bleeding or easy bruising Allergic/Immunologic Allergic/Immunologic ED: Denies mouth swelling or tongue swelling EXAM Physical Exam Const Vital Signs: 10/11/24 03:43 10/11/24 03:43 10/11/24 03:48 Temperature 99.4 F H 99.4 F H Temperature Source Oral Oral Pulse Rate 108 H 105 H Respiratory Rate 26 H 26 H Blood Pressure 143/80 H 143/80 H Blood Pressure Mean 101 101 Pulse Ox 85 90 90 Oxygen Delivery Method Room Air Nasal Cannula Nasal Cannula Oxygen Flow Rate (L/min) 2 10/11/24 04:15 10/11/24 04:20 10/11/24 04:36 Temperature Temperature Source Pulse Rate 86 Respiratory Rate 33 H Blood Pressure Blood Pressure Mean Pulse Ox 85 92 Oxygen Delivery Method Nasal Cannula Nasal Cannula Oxygen Flow Rate (L/min) 2 4 10/11/24 04:36 10/11/24 04:48 Temperature 98.6 F Temperature Source Oral Pulse Rate 86 Respiratory Rate 18 Blood Pressure 119/61 Blood Pressure Mean 80 Pulse Ox 90 91 Oxygen Delivery Method Nasal Cannula Nasal Cannula Oxygen Flow Rate (L/min) 4 4 Positive well nourished and well developed Constitutional Narrative: Patient is in respiratory distress with tachypnea and accessory muscle use General Appearance ED: well developed and pallor HEENT HEENT Narrative: No tongue or lip swelling no oral lesions no airway edema or compromise No secondary findings in the posterior pharynx to suggest infection Eyes PERRL and EOMs intact bilaterally General Eye ED: Negative for scleral icterus Neck supple and no JVD Resp Resp Narrative: Patient is in moderate respiratory distress with tachypnea and accessory muscle use Breath sounds are diminished throughout with diffuse inspiratory and expiratory wheezing. There is rhonchi noted diffusely as well but greatest in the right Cardio regular rhythm Rate: tachycardic and other Other Details: Tachycardic rate with regular rhythm Radial and carotid pulses are equal and symmetric GI normal to inspection, nondistended, normoactive bowel sounds, non-tender, non-distended and no masses GI Narrative: No voluntary guarding no rigidity or pulsatile mass No fluid wave noted Auscultation: normoactive bowel sounds Palpation: soft Extremity normal to inspection Extremity Narrative: No asymmetric edema no pitting edema negative Homans' sign bilaterally Neuro oriented x3, CN's II-XII intact bilaterally and no sensory deficits noted Sensorium / Orientation: alert Motor Exam: strength 5/5 throughout Psych Mood & Affect: anxious Skin no rashes or lesions noted General Skin Exam: pallor; Negative for jaundice MDM MDM MDM Narrative Medical decision making narrative: Patient arrived to the ER hypertensive and tachycardic with respiratory distress. She was tachypneic with accessory muscle use and a room air pulse ox was low at approximately 85%. With her past medical history of COPD as well as aortic aneurysm there is concern for pneumonia versus pneumothorax versus pulmonary embolus versus dissection. Secondary to his basic blood work was obtained and patient received a CTA of her chest. Lab work showed leukocytosis at 24.1 with left shift and high band count concerning for systemic infection. She was started on vancomycin and Zosyn secondary to this with concern for infection and blood cultures were obtained as well. With IV steroids breathing medications and pain control her work of breathing improved and her pulse ox improved to 92 to 93% on 5 to 6 L nasal cannula. CTA confirmed pneumonia without dissection or PE. At this time based on her multifocal pneumonia as well as hypoxia and no access to oxygen at home she will need admitted to the hospital for continued oxygen therapy as well as IV antibiotics. Secondary to this the case was discussed with the hospitalist who agrees to accept the patient for further care History & Record Review Discussion w/independent historian: Patient and Family Lab Data Attestation: I reviewed the patient's lab results. Labs: Laboratory Results - last 24 hr 10/11/24 04:09 WBC 24.1 H RBC 4.57 Hgb 14.4 Hct 41.8 MCV 91.5 MCH 31.5 MCHC 34.4 RDW Std Deviation 55.5 H RDW Coeff of Silvia 17.1 H Plt Count 208 MPV 9.8 Neut % (Auto) Not Reportable Absolute Neuts (auto) 22.7 H Absolute Lymphs (auto) 0.70 L Total Counted 100 Neutrophils % (Manual) 63 Band Neutrophils % 31 H Lymphocytes % (Manual) 3 L Monocytes % (Manual) 3 Differential Comment SCANNED Platelet Estimate ADEQUATE PT 17.6 H INR 1.4 APTT 30.1 Sodium 139 Potassium 2.8 L Chloride 103 Carbon Dioxide 20.2 L Anion Gap 16 H BUN 18 Creatinine 0.90 Estim Creat Clear Calc 53.67 Est GFR (MDRD) Non-Af 68 BUN/Creatinine Ratio 19.7 Glucose 139 H Lactic Acid 2.0 Calcium 8.7 Magnesium 1.1 L Radiography Diagnostic Testing: Clinical Impression(s) from Imaging Studies Chest CTA 10/11/24 04:06 IMPRESSION: No evidence of filling defect to suggest pulmonary embolism. Findings are consistent with bilateral multifocal areas of pneumonia greatest atthe right middle lobe as described above. Clinically correlate and follow-up to resolution. Reading Location: [id number] Management Discussion w/another healthcare provider: Hospitalist Critical Care Time Critical Care Time: Yes Critical care time (excluding procedures): Discussing w/Patient &/or Family/CareGiver and - (Critical care time of 31 minutes) Discharge Plan Dx/Rx/DC Orders Clinical Impression: COPD with acute exacerbation, Acute respiratory failure with hypoxia, Status post AAA (abdominal aortic aneurysm) repair, Multifocal pneumonia Disposition Disposition: Acute Care Hospital [facility] Discharge Date/Time: 10/11/24 06:16 What to do if you have Problems For any increased pain, shortness of breath, bleeding, nausea or vomiting, chestpain, or any unexpected problems, contact your Primary Care Provider. Call [facility] ([phone]) or report to the closest Emergency Room. Call 911 if necessary. 10/11/24621 <Electronically signed by Preston Jimenez DO> Cosigner Signature (if applicable): CC: Dr. Jannet Dey MD ~ Signed [facility] Work Phone: [phone] History and physical note [facility] Medical Records Department [address] [place] [id number] H&P Exam - Hospitalist 10/11/24 0534 MR#: [id number] Acct: [id number] Name: CHARLIE ESTRADA Rep #:[id number] : 1950 73 From: Nikolai waters DO PCP: Dr. Jannet Dey MD Status:ADM [id number] - General General Date of Admission: 10/11/24 Date of Service: 10/11/24 Chief Complaint: Shortness of breath and nausea with vomiting HPI Narrative CHARLIE ESTRADA, is a 73 F who presented to [facility] ED onwith worsening shortness of breath and nausea with vomiting. Patient has history of mild COPD, is not on home oxygen. No prior history of COPD exacerbations requiring hospitalization. She was hospitalized last month with acute appendicitis s/p laparoscopic appendectomy. Notes that she did well belowsurgery and was discharged home without issue. She lives at home with 3 other family members. Notes that over the past few days she has had some upper respiratory symptoms and mild shortness of breath, but then last night it becamemuch worse and she began to have episodes of nausea with vomiting. Denies any history ofaspiration or known aspiration events. Because of the symptoms, she came into the ED for further evaluation. On arrival to the ED she was noted to hypoxic to the low to mid 80s on room air and was breathing at 30-35 times per minute. She was tachycardic to the low 100s and had a low-grade fever of 99.4F. She was placed on supplemental oxygen and given a breathing treatment with moderate improvement in herwork of breathing. CTA chest showed no PE but did show bilateral multifocal pneumonia with consolidation greatest in the right middle lobe. Labs notable for WBC count of 24, potassium 2.8 and magnesium 1.1. She was given doses of IV antibiotics and steroids for suspected pneumonia with COPD exacerbation, and hospitalist was contacted for admission. I saw the patient at bedside in the ED. Patient was fatigued appearing but otherwise laying back comfortably in bed and breathing comfortably on 4 L nasal cannula at rest. She notably was reporting right-sided chest pain when she camein as well and was given a dose of IV pain medication with some improvement. Noted to me that she felt very fatigued and simply wanted to sleep. She denied any coughor sputum production to this point. She is a current smoker, smokes about 5 cigarettes/day. States she was smoking more heavily than this until herappendectomy 1 month ago. She also reports drinking vodka but states she only has about 3 drinks per week. She currently denies any fevers or chills. Noother acute concerns at this time. [facility] Medical History (Updated 10/11/24 @ 06:[address] Nikolai Mejia, DO) Pleural effusion on left Atelectasis of left lung Postoperative urinary retention Situational insomnia Chronic anxiety Preop exam for internal medicine Acute bronchitis, unspecified COVID-19 Contact with and (suspected) exposure to other viral communicable diseases Elevated MCV Elevated hemoglobin Hypokalemia Enlarged thyroid gland Uncontrolled hypertension Breast lump Hearing problem AAA (abdominal aortic aneurysm) Rash Knee pain, chronic Hay fever Hemorrhoids HTN (hypertension) Home Medications ?Medication ?Instructions ?Recorded ?Last Taken ?Type aspirin 81 mg tablet,delayed 81 mg PO QDAY 07/28/24 Un known History release (Adult Low Dose Aspirin) Allergy/AdvReac Type Severity Reaction Status Date / Time NSAIDS (Non-Steroidal AdvReac Nausea Verified 10/11/24 03:43 Anti-Inflamma Family History Other Anxiety with depression Arthritis Asthma Diabetes Hyperlipemia Hypertension Surgical History (Updated 10/11/24 @ 06:[address] Preston Jimenez DO) History of appendectomy Status post AAA (abdominal aortic aneurysm) repair History of AAA (abdominal aortic aneurysm) repair Cataract fragments in eye following surgery Social History Smoking Status: Current every day smoker tobacco type: cigarettes alcohol intake: current alcohol intake frequency: holidays/special occasions only substance use type: does not use ROS Constitutional Constitutional: Reports fatigue and malaise; Denies chills, fever(s) or weakness Eyes Eyes: Denies change in vision Cardiovascular Cardiovascular: Reports dyspnea on exertion; Denies chest pain, edema or palpitations Respiratory/Chest Respiratory/Chest: Reports cough, shortness of breath at rest and shortness of breath with exertion; Denies productive cough or wheezing Gastrointestinal Gastrointestinal: Reports nausea and vomiting; Denies abdominal pain, constipation or diarrhea Genitourinary Genitourinary: Denies dysuria Musculoskeletal Musculoskeletal: Denies arthralgias or myalgias Neurologic Neurologic: Denies dizziness or headache(s) Vital Signs Vital Signs Vital Signs: 10/11/24 03:43 10/11/24 03:43 10/11/24 03:48 Temperature 99.4 F H 99.4 F H Temperature Source Oral Oral Pulse Rate 108 H 105 H Respiratory Rate 26 H 26 H Blood Pressure 143/80 H 143/80 H Blood Pressure Mean 101 101 Pulse Ox 85 90 90 Oxygen Delivery Method Room Air Nasal Cannula Nasal Cannula Oxygen Flow Rate (L/min) 2 10/11/24 04:15 10/11/24 04:20 10/11/24 04:36 Temperature Temperature Source Pulse Rate 86 Respiratory Rate 33 H Blood Pressure Blood Pressure Mean Pulse Ox 85 92 Oxygen Delivery Method Nasal Cannula Nasal Cannula Oxygen Flow Rate (L/min) 2 4 10/11/24 04:36 10/11/24 04:48 Temperature 98.6 F Temperature Source Oral Pulse Rate 86 Respiratory Rate 18 Blood Pressure 119/61 Blood Pressure Mean 80 Pulse Ox 90 91 Oxygen Delivery Method Nasal Cannula Nasal Cannula Oxygen Flow Rate (L/min) 4 4 Weight Weight: 66.4 kg Body Mass Index (BMI) 23.6 Physical Exam Const alert, oriented x3, no apparent distress and average body habitus Constitutional Narrative: Elderly female, fatigued appearing but otherwise laying back comfortably in bed,conversing normallyand in no acute distress. General Appearance: cooperative and comfortable HEENT normocephalic, head/scalp atraumatic, hearing grossly normal bilaterally, nasal mucous membranes and turbinates normal and moist oral mucous membranes Eyes PERRL, EOMs intact bilaterally and conjunctivae normal Neck full ROM Chest inspection of chest normal Resp normal respiratory effort and no use of accessory muscles Resp Narrative: Breathing comfortably on 4 L nasal cannula at rest. Mild wheezing noted in upper airways bilaterally and mild crackles noted in right middle lung area. Otherwise good breath sounds bilaterally throughout. Cardio regular rate, regular rhythm, no murmurs and peripheral pulses 2+ throughout GI normal to inspection, nondistended, normoactive bowel sounds, soft to palpation,non-tender and non-distended Back/Spine normal ROM Extremity normal to inspection, full ROM and no pedal edema Skin no rashes or lesions noted Psych mental status grossly normal Results Lab / Micro Data 10/11/24 04:09 10/11/24 04:09 Labs: Laboratory Results - last 24 hr 10/11/24 04:09: WBC 24.1 H, RBC 4.57, Hgb 14.4, Hct 41.8, MCV 91.5, MCH 31.5, MCHC 34.4, RDW Std Deviation 55.5 H, RDW Coeff of Silvia 17.1 H, Plt Count 208, MPV9.8, Neut % (Auto) Not Reportable, Absolute Neuts (auto) 22.7 H, Absolute Lymphs(auto) 0.70 L, Total Counted 100, Neutrophils % (Manual) 63, Band Neutrophils % 31 H, Lymphocytes % (Manual) 3 L, Monocytes % (Manual) 3, Differential Comment SCANNED, Platelet Estimate ADEQUATE, PT 17.6 H, INR 1.4, APTT 30.1, Sodium 139, Potassium 2.8 L, Chloride 103, Carbon Dioxide 20.2 L, Anion Gap 16 H, BUN 18, Creatinine 0.90, Estim Creat Clear Calc 53.67, Est GFR (MDRD) Non-Af 68, BUN/Creatinine Ratio 19.7, Glucose 139 H, Lactic Acid 2.0, Calcium 8.7,Magnesium 1.1 L Micro: Microbiology 10/11/24 04:20 Mucosa - Nose SARS-CoV-2, Influenza & RSV (PCR) - Final Assessment & Plan Assessment/Plan (1) Multifocal pneumonia: (2) COPD with acute exacerbation: (3) Hypoxia: PLAN: Plan Patient is a 73-year-old female who presented [facility] ED on 10/11/24 with worsening shortness of breath and nausea with vomiting. 1. Community-acquired pneumonia and mild COPD exacerbation with hypoxia ? Admit under inpatient status to PCU. CTA chest on admit showed bilateral multifocal pneumonia with consolidation greatest in the right middle lobe. WBC count 24 and low-grade fever noted in ED. [place] home oxygen, no prior history of severe COPD exacerbations. Suspect patient was at high risk fordeveloping pneumonia given recent appendicitis and likely shallow breathing postoperatively, along with recent AAA repair in May and need for supplemental oxygen postrepair due to significant atelectasis. Sputum culture and urine antigens ordered. Will treat with IV antibiotics, IV steroids and scheduled DuoNebs for now. Wean supplemental oxygen as able. 2. Hypokalemia, hypomagnesemia ? Potassium 2.8, magnesium 1.1 on admit. Phosphorus pending. Suspect primarilydue to GI losses and recent poor p.o. intake. However, alcohol use could also be contributing. Will replete as needed. 3. Tobacco use ? Current smoker, smokes about 5 cigarettes/day. Has been smoking only 5/day since her appendectomy1 month ago. Longtime smoker and prior to that procedurewas smoking 10 to 20 cigarettes daily. Denied need for nicotine replacement therapy at this time. Encouraged cessation on discharge. 4. Alcohol use ? Patient reports drinking about 3 glasses of vodka on a weekly basis. However,have some concern she may be underreporting this given her electrolytes on admission. Will place on CIWA protocol without medications for now. 5. Hypertension ? Per recent notes, was on amlodipine and metoprolol prior to AAA repair. Bloodpressures were running somewhat low after that so these were held. Appears thatLopressor was restarted at 25 mg twice daily on 07/28. Will continue home Lopressor at this time. 6. Recent acute appendicitis s/p appendectomy ? Had laparoscopic appendectomy done with Dr. Smiley on 09/06. Tolerated procedure well, no intraoperative or postoperative complications. Discharged home on 09/07 without issue. 7. History of AAA with recent repair ? Had type IV thoracoabdominal AAA repair with graft done at [facility] on 05/27. Did have postoperative hypoxia requiring home supplemental oxygen for a few weeks. Was suspected this was due to atelectasis. Has been off supplemental oxygen now since mid June. No inpatient needs, continue outpatient follow-up. DVT prophylaxis: Lovenox CODE STATUS: Full code, verified Expected disposition: Home, 2 to 3 days Total clinical time spent by myself addressing the patient's medical issues, reviewing all the data, and collaborating with patient's care team: 75 minutes. Charges/Coding Visit Charges Inpatient E&M: 07271 Init Hosp L3 10/11/24 0644 Cosigner Signature (if applicable): CC: Dr. Nikolai Mejia DO; Dr. Jannet Dey MD~ Signed [facility]04-19-2025 Discharge summary [facility] Medical Records Department [address] [place] [address] Emergency Department Summary 10/11/24 MR#: [id number] Acct: [id number] Name: CHARLIE ESTRADA Rep #:[id number] : 1950 73 From: Preston Jimenez DO PCP: Dr. Jannet Dey MD Status:ADM IN Location: [address] History of Present Illness Chief Complaint: Nausea/Vomiting Informant: patient and family Narrative Narrative: Patient is a 73-year-old female with past medical history of abdominal aortic aneurysm status postrepair in May 2024 and COPD but no reported need for supplemental oxygen. Patient reports she has had chronic back pain ever since her aneurysm repair. However in the last 2 to 3 days she has had increased congestion cough shortness of breath and back pain. She states that the symptoms got severe tonight where she felt she could not take it any longer and therefore she was brought into the ER for evaluation. She does state that she has been in and out of nursing homes recently visiting friends and that someone from a snf who was recently discharged from there has been living with her and he has been sick [facility] Medical History (Updated 10/11/24 @ 06:[address] Preston Jimenez DO) Pleural effusion on left Atelectasis of left lung Postoperative urinary retention Situational insomnia Chronic anxiety Preop exam for internal medicine Acute bronchitis, unspecified COVID-19 Contact with and (suspected) exposure to other viral communicable diseases Elevated MCV Elevated hemoglobin Hypokalemia Enlarged thyroid gland Uncontrolled hypertension Breast lump Hearing problem AAA (abdominal aortic aneurysm) Rash Knee pain, chronic Hay fever Hemorrhoids HTN (hypertension) Home Medications ?Medication ?Instructions ?Recorded ?Last Taken ?Type aspirin 81 mg tablet,delayed 81 mg PO QDAY 07/28/24 Un known History release (Adult Low Dose Aspirin) Allergy/AdvReac Type Severity Reaction Status Date / Time NSAIDS (Non-Steroidal AdvReac Nausea Verified 10/11/24 03:43 Anti-Inflamma Family History Other Anxiety with depression Arthritis Asthma Diabetes Hyperlipemia Hypertension Surgical History (Updated 10/11/24 @ 06:[address] Preston Jimenez, DO) History of appendectomy Status post AAA (abdominal aortic aneurysm) repair History of AAA (abdominal aortic aneurysm) repair Cataract fragments in eye following surgery Social History Smoking Status: Current every day smoker tobacco type: cigarettes alcohol intake: current alcohol intake frequency: holidays/special occasions only substance use type: does not use ROS ROS ED Constitutional Constitutional ED: Denies chills or fever(s) Eyes Eyes: Denies change in vision ENT ENT ED: Denies sore throat Cardiovascular Cardiovascular: Reports racing heartbeat; Denies chest pain or palpitations Respiratory/Chest Respiratory/Chest: Reports cough and dyspnea Gastrointestinal Gastrointestinal: Denies abdominal pain, diarrhea, nausea or vomiting Genitourinary Genitourinary ED: Denies dysuria Musculoskeletal Musculoskeletal: Reports back pain Integumentary Denies rash Neurologic Neurologic: Denies headache(s) Hematologic/Lymphatic Hematologic/Lymphatic: Denies easy bleeding or easy bruising Allergic/Immunologic Allergic/Immunologic ED: Denies mouth swelling or tongue swelling EXAM Physical Exam Const Vital Signs: 10/11/24 03:43 10/11/24 03:43 10/11/24 03:48 Temperature 99.4 F H 99.4 F H Temperature Source Oral Oral Pulse Rate 108 H 105 H Respiratory Rate 26 H 26 H Blood Pressure 143/80 H 143/80 H Blood Pressure Mean 101 101 Pulse Ox 85 90 90 Oxygen Delivery Method Room Air Nasal Cannula Nasal Cannula Oxygen Flow Rate (L/min) 2 10/11/24 04:15 10/11/24 04:20 10/11/24 04:36 Temperature Temperature Source Pulse Rate 86 Respiratory Rate 33 H Blood Pressure Blood Pressure Mean Pulse Ox 85 92 Oxygen Delivery Method Nasal Cannula Nasal Cannula Oxygen Flow Rate (L/min) 2 4 10/11/24 04:36 10/11/24 04:48 Temperature 98.6 F Temperature Source Oral Pulse Rate 86 Respiratory Rate 18 Blood Pressure 119/61 Blood Pressure Mean 80 Pulse Ox 90 91 Oxygen Delivery Method Nasal Cannula Nasal Cannula Oxygen Flow Rate (L/min) 4 4 Positive well nourished and well developed Constitutional Narrative: Patient is in respiratory distress with tachypnea and accessory muscle use General Appearance ED: well developed and pallor HEENT HEENT Narrative: No tongue or lip swelling no oral lesions no airway edema or compromise No secondary findings in the posterior pharynx to suggest infection Eyes PERRL and EOMs intact bilaterally General Eye ED: Negative for scleral icterus Neck supple and no JVD Resp Resp Narrative: Patient is in moderate respiratory distress with tachypnea and accessory muscle use Breath sounds are diminished throughout with diffuse inspiratory and expiratory wheezing. There is rhonchi noted diffusely as well but greatest in the right Cardio regular rhythm Rate: tachycardic and other Other Details: Tachycardic rate with regular rhythm Radial and carotid pulses are equal and symmetric GI normal to inspection, nondistended, normoactive bowel sounds, non-tender, non- distended and no masses GI Narrative: No voluntary guarding no rigidity or pulsatile mass No fluid wave noted Auscultation: normoactive bowel sounds Palpation: soft Extremity normal to inspection Extremity Narrative: No asymmetric edema no pitting edema negative Homans' sign bilaterally Neuro oriented x3, CN's II-XII intact bilaterally and no sensory deficits noted Sensorium / Orientation: alert Motor Exam: strength 5/5 throughout Psych Mood & Affect: anxious Skin no rashes or lesions noted General Skin Exam: pallor; Negative for jaundice MDM MDM MDM Narrative Medical decision making narrative: Patient arrived to the ER hypertensive and tachycardic with respiratory distress. She was tachypneic with accessory muscle use and a room air pulse ox was low at approximately 85%. With her past medical history of COPD as well as aortic aneurysm there is concern for pneumonia versus pneumothorax versus pulmonary embolus versus dissection. Secondary to his basic blood work was obtained and patientreceived a CTA of her chest. Lab work showed leukocytosis at 24.1 with left shift and high band count concerning for systemic infection. She was started on vancomycin and Zosyn secondary to this withconcern for infection and blood cultures were obtained as well. With IV steroids breathing medications and pain control her work of breathing improved and her pulse ox improved to 92 to 93% on 5 to 6L nasal cannula. CTA confirmed pneumonia without dissection or PE. At this time based on her multifocal pneumonia as well as hypoxia and no access to oxygen at home she will need admitted to the hospital for continued oxygen therapy as well as IV antibiotics. Secondary to this the case was discussed with the hospitalist who agrees to accept the patient for further care History & Record Review Discussion w/independent historian: Patient and Family Lab Data Attestation: I reviewed the patient's lab results. Labs: Laboratory Results - last 24 hr 10/11/24 04:09 WBC 24.1 H RBC 4.57 Hgb 14.4 Hct 41.8 MCV 91.5 MCH 31.5 MCHC 34.4 RDW Std Deviation 55.5 H RDW Coeff of Silvia 17.1 H Plt Count 208 MPV 9.8 Neut % (Auto) Not Reportable Absolute Neuts (auto) 22.7 H Absolute Lymphs (auto) 0.70 L Total Counted 100 Neutrophils % (Manual) 63 Band Neutrophils % 31 H Lymphocytes % (Manual) 3 L Monocytes % (Manual) 3 Differential Comment SCANNED Platelet Estimate ADEQUATE PT 17.6 H INR 1.4 APTT 30.1 Sodium 139 Potassium 2.8 L Chloride 103 Carbon Dioxide 20.2 L Anion Gap 16 H BUN 18 Creatinine 0.90 Estim Creat Clear Calc 53.67 Est GFR (MDRD) Non-Af 68 BUN/Creatinine Ratio 19.7 Glucose 139 H Lactic Acid 2.0 Calcium 8.7 Magnesium 1.1 L Radiography Diagnostic Testing: Clinical Impression(s) from Imaging Studies Chest CTA 10/11/24 04:06 IMPRESSION: No evidence of filling defect to suggest pulmonary embolism. Findings are consistent with bilateral multifocal areas of pneumonia greatest atthe right middle lobe as described above. Clinically correlate and follow-up to resolution. Reading Location: [facility] Management Discussion w/another healthcare provider: Hospitalist Critical Care Time Critical Care Time: Yes Critical care time (excluding procedures): Discussing w/Patient &/or Family/CareGiver and - (Critical care time of 31 minutes) Discharge Plan Dx/Rx/DC Orders Clinical Impression: COPD with acute exacerbation, Acute respiratory failure with hypoxia, Status post AAA (abdominal aortic aneurysm) repair, Multifocal pneumonia Disposition Disposition: Acute Care Hospital [facility] Discharge Date/Time: 10/11/24 06:16 What to do if you have Problems For any increased pain, shortness of breath, bleeding, nausea or vomiting, chestpain, or any unexpected problems, contact your Primary Care Provider. Call [facility] ([phone]) or report tothe closest Emergency Room. Call 911 if necessary. 10/11/24621 Cosigner Signature (if applicable): CC: Dr. aJnnet Dey MD ~ Signed [facility]04-19-2025 Radiology Diagnostic study note [facility] Imaging Services [address] [place], [place] [address] CTA Chest W/WO Contrast MR#: [id number] Acct: [id number] Name: CHARLIE ESTRADA Rep #: [id number] : 1950 F 73 From: Iglesia Crespo MD PCP: Dr. Jannet Dey MD Status: REG ER Study:CTA Chest W/WO Contrast Date of Exam: 10/11/24 Exam# [id number] Ordering Dr: Missy Jimenez DO PROCEDURE: CTA CHEST W/WO CONTRAST 10/11/2024 REASON FOR EXAM: CHEST PAIN WITH PMHX OF AAA TECHNIQUE: CTA imaging of the chest with intravenous contrast. Coronal and Sagittal reconstruction series were provided. Maximum intensity projection (MIPs) Volume rendering and CONTRAST: 100 cc Isovue 370 IV One or more dose reduction techniques were used (e.g., Automated exposure control, adjustment of the mA and/or kV according to patient size, use of iterative reconstruction technique). RADIATION DOSE SUMMARY: CTDlvol: 13.48 mGy DLP: 296.01 mGycm FINDINGS: No evidence of filling defect to suggest pulmonary embolism. Ectatic thoracic aorta with atherosclerotic changes without aneurysm or dissection. Huguenot artifact from bolus and motion limits the great vessel evaluation. Difficult to visualize the proximal left vertebralartery to definitelycontain contrast. The right visualized vertebral artery appears dominant and at the C4 level contrast can be seen fillingthe left cervical vertebral artery in the foramin transversarium. Coronary calcifications. No pericardial or pleural effusion. Findings are consistent with a multifocal pneumonia with a greater process in the right middle lobewith consolidative changes throughout the majority of the lobe and some patchy areas extending into the adjacent right upper lobe and small patchy areas throughout the right lower lobe. Very small nodular ground-glass opacities within the left lower lobe. Areas of scarring or atelectasis at the bases. The central airways appear patent. Sequela of previous granulomatous disease. Visualized osseous structures appear within limits. CT/CTA Chest W/WO Contrast IMPRESSION: No evidence of filling defect to suggest pulmonary embolism. Findings are consistent with bilateral multifocal areas of pneumonia greatest atthe right middle lobe as described above. Clinically correlate and follow-up to resolution. Reading Location: [id number] CC: Dr. Jannet Dey MD; Preston Jimenez DO ~ [employer] Maker: Signed [facility]04-16-2025 NoteHNO ID: [id number] Author: YOBANI LESTER MD Service: ? Author Type: Physician Type: Progress Notes Filed: 10/08/2024 15:30 Note Text: S/p open aaa. F/u 1 year [facility]scan [facility] History of Present illness Narrative* Yobani Lester MD - 10/08/2024 3:29 PM EDT S/p open aaa. F/u 1 year with ctscan Doing well [facility] Discharge summary Author Yang Smiley [facility] Note Date/Time September 07, 2024 12: 38pm [facility] Medical Records Department [address] [place] [address] [place] [address] Discharge Summary 09/07/24 1227 MR#: [id number] Acct: [id number] Name: CHARLIE ESTRADA Rep #:[id number] : 1950 73 From: Yang Smiley MD PCP: Dr. Jannet Dey MD Status:ADM PRISCILA [id number] Prov[facility] Date of Admission: 09/06/24 Date of Discharge: 09/07/24 Primary Care Physician: Dr. Jannet Dey MD Reason For Visit: APPENDICITIS Diagnosis Discharge Diagnosis (1) Acute appendicitis: Status: Acute Code(s): K35.80 - Unspecified acute appendicitis Plan The patient is a 73-year-old female with acute appendicitis. I have recommendeda laparoscopic appendectomy as treatment. We discussed the details of the planned procedure as well as risks benefits and alternatives. She wishes to proceed. This will begin shortly Medications at Discharge Home Medications aspirin 81 mg tablet,delayed release (Adult Low Dose Aspirin) 81 mg PO QDAY 07/28/24 metoprolol tartrate 50 mg tablet 25 mg (1/2 x 50 mg) PO DAILY #90 tabs 07/28/24 oxycodone-acetaminophen 5 mg-325 mg tablet (Percocet) 1 tab PO Q8H PRN pain 3 days #10 tabs 09/07/24 Hospital Course Operations appendectomy Summary of Care Provided Minutes Spent on Discharge: 20 Hospital Course: The patient is a 73-year-old female who presented yesterday to the emergency department at [facility] with right-sided abdominal pain. This pain had been ongoing for about 2 days. She was seen and evaluated by the ER staff. Herwhite blood cell count was normal however CT scan indicated a retrocecal appendicitis without perforation. Surgery was consulted and immediate plans were put in place to proceed to laparoscopic appendectomy. The surgery was performed yesterday afternoon. This was well-tolerated. She was admitted overnight for observation and pain control. She did well overnight. She has been tolerating diet and passing flatus. Pain is under good control. She is on2 L of oxygen but this is being weaned. We are anticipating discharge later today as long as her oxygen can be weaned off successfully Physical Exam Narrative She is alert and oriented x 3. She is in no acute distress. Abdomen soft and appropriately tender. Weight / BMI Weight Weight: 159 lb 13.362 oz Body Mass Index (BMI) 25.7 ABG / Lab / Microbiology Data 09/07/24 05:35 09/07/24 05:35 Laboratory: Laboratory Results - last 24 hr 09/06/24 11:49: Sodium 140, Potassium 3.4, Chloride 102, Carbon Dioxide 24.3, Anion Gap 13, BUN 12, Creatinine 0.81, Estim Creat Clear Calc 59.64, Est GFR (MDRD) Non-Af 78, BUN/Creatinine Ratio 15.0, Glucose 95, Calcium 9.1, Total Bilirubin 1.04, AST 15, ALT < 5, Alkaline Phosphatase 137 H, Total Protein 6.8, Albumin 3.8, Globulin 3.0, Albumin/Globulin Ratio 1.3, Lipase 86 H 09/06/24 14:13: Urine Color Yellow, Urine Clarity Sl. Cloudy, Urine pH 6.0, Ur Specific [place] 1.015, Urine Protein 30 H, Urine Glucose (UA) Normal, Urine Ketones Negative, Urine Occult Blood 25 H, Urine Nitrite Positive H, Urine Bilirubin Negative, Urine Urobilinogen 1 H, Ur Leukocyte Esterase 500 H, Urine RBC 0-5 SEEN, Urine WBC 50-100 SEEN, Ur Squamous Epith Cells 0-5 SEEN, Urine Bacteria 4+, Urine Mucus 0 SEEN 09/07/24 05:35: WBC 12.0 H, RBC 4.08 L, Hgb 13.2, Hct 40.0, MCV 98.0, MCH 32.4 H, MCHC 33.0, RDW Std Deviation 58.9 H, RDW Coeff of Silvia 16.9 H, Plt Count 180, MPV 9.9, Immature Gran % (Auto) 0.500, Neut % (Auto) 87.1 H, Lymph % (Auto) 4.9 L, [place] % (Auto) 7.4, Eos % (Auto) 0.0, Baso % (Auto) 0.1, Absolute Neuts (auto)10.5 H, Absolute Lymphs (auto) 0.59 L, Nucleated RBC % 0, Sodium 137, Potassium 3.2 L, Chloride 104, Carbon Dioxide 18.0 L, Anion Gap 16 H, BUN 16, Creatinine 0.93, Estim Creat Clear Calc 56.57, Est GFR (MDRD) Non-Af 66, BUN/Creatinine Ratio 17.5, Glucose 146 H, Calcium 8.2 Microbiology: Microbiology 09/06/24 14:13 Urine, Clean Catch Urine Culture - Preliminary GNR 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 Reading [facility] Inst[facility] Discharge Diet: Light diet - advance as tolerated Discharge Activity: Return to Normal Activity and May Shower May shower in (days): 1 Ice area for (Minutes): 30 Lifting Restrictions: Keep lifting under 20 pounds for about 3 to 4 weeks Call your doctor if your incision/area has: Continuous Slow Oozing, Sudden Increased Bleeding, Increased Pain/ Swelling, Increased Redness, Foul Smelling Discharge and Swelling at the incision site Call your doctor if you observe: Fever of 101 or Higher Cleanse incision/area with: Soap & Water DC O2, CPAP, BIPAP Needs Home O2 Discharge instructions: No DC home with Oxygen: No Please Follow Up With: Yang Smiley MD When: 2 weeks. Please call office to schedule appointment Meaningful Use Info Meaningful Use Meaningful Use Diagnoses (Choose all that apply): None applicable Ischemic Stroke Statin Dosing Therapy Reference: STATIN DOSE THERAPY REFERENCE: * Patients > 75 years receive moderate or high dose statin therapy. * Patients 75 years or YOUNGER should receive HIGH intensity statin dose unless contraindicated. You will be required to document reason for non-treatment if statin daily dose does not meet guidelines. HIGH DOSE STATIN THERAPY DAILY Atorvastatin > than or = to 40 mg Rosuvastatin > than or = to 20 mg Amlodipine + Atorvastatin > than or = to 2.5/40 mg Ezetimibe + Simvastatin 10/80 mg Simvastatin 80mg Discharge Plan Admission Admit Date/Time: 09/06/24 17:25 Primary Reason for Your Visit: Acute appendicitis Attending Provider: Yang Smiley Primary Care Provider: Jannet eDy Discharge Orders/Prescriptions Prescriptions: New oxycodone-acetaminophen [Percocet] 5-325 mg tablet 1 tab PO Q8H PRN (Reason: pain) 3 Days Qty: 10 0RF Continued aspirin [Adult Low Dose Aspirin] 81 mg tablet,delayed release (DR/EC) 81 mg PO QDAY metoprolol tartrate 50 mg tablet 25 mg PO DAILY Qty: 90 3RF Referrals / Follow Up: Jannet Dey MD [Primary Care Provider] - Disposition Disposition (needs filled in before D/C Order can be placed): Home, Self Care 09/07/24 1238 <Electronically signed by Yang Smiley MD> Cosigner Signature (if applicable): CC: Dr. Jannet Dey MD; Dr. Yang Smiley MD~ Signed [facility] Work Phone: [phone] Discharge summary [facility] Medical Records Department [address] [place] [address] Emergency Department Summary 09/06/24 MR#: [id number] Acct: [id number] Name: CHARLIE ESTRADA Rep #:[id number] : 1950 73 From: Donvoan Davalos PCP: Dr. Jannet Dey MD Status:ADM PRISCILA Location: [facility]3 [id number] HPI HPI - GI History of Present Illness Chief Complaint: Abd Pain Informant: patient Abdominal Pain/Flank Pain Onset: Days (2) Context: Gradual Onset Timing: Continuous Quality: Burning and Dull Location: RUQ and RLQ Worsened by: Nothing Relieved by: Nothing Nausea/Vomiting/Emesis GI Symptom: Positive for Nausea; Negative for Vomiting Onset: Days Diarrhea/Melena/Hematochezia GI Symptom: Negative for Diarrhea, Melena or Hematochezia Associated Symptoms Associated Symptoms: Positive for Frequency; Negative for Dysuria or Hematuria Narrative Narrative: Patient presents with abdominal pain that has been getting worse over the past 2days. Patient states it is gradually getting worse. Patient states it started as a diffuse abdominal pain but is now inthe right side of her abdomen. Patient describes it as dull and burning. Patient states it has beenconstant. Patient states nothing makes it better and nothing makes it worse. Patient admits to somenausea and decreased appetite. Patient denies any vomiting. Patient denies any diarrhea, melena, orhematochezia. Patient admits to some urinary frequency but denies any dysuria or hematuria. Patienthad a recent aortic aneurysm repair on 05/27/2024. [facility] Medical History Pleural effusion on left Atelectasis of left lung Postoperative urinary retention Situational insomnia Chronic anxiety Preop exam for internal medicine Acute bronchitis, unspecified COVID-19 Contact with and (suspected) exposure to other viral communicable diseases Elevated MCV Elevated hemoglobin Hypokalemia Enlarged thyroid gland Uncontrolled hypertension Breast lump Hearing problem AAA (abdominal aortic aneurysm) Rash Knee pain, chronic Hay fever Hemorrhoids HTN (hypertension) Home Medications ?Medication ?Instructions ?Recorded ?Last Taken ?Type aspirin 81 mg tablet,delayed 81 mg PO QDAY 07/28/24 Un known History release (Adult Low Dose Aspirin) metoprolol tartrate 50 mg tablet 25 mg (1/2 x 50 mg) P O DAILY #90 07/28/24 Unknown Rx tabs Allergy/AdvReac Type Severity Reaction Status Date / Time NSAIDS (Non-Steroidal AdvReac Nausea Verified 09/06/24 11:32 Anti-Inflamma Family History Other Anxiety with depression Arthritis Asthma Diabetes Hyperlipemia Hypertension Surgical History Status post AAA (abdominal aortic aneurysm) repair History of AAA (abdominal aortic aneurysm) repair Cataract fragments in eye following surgery Social History Smoking Status: Current every day smoker tobacco type: cigarettes alcohol intake: current alcohol intake frequency: holidays/special occasions only substance use type: does not use ROS ROS ED Constitutional Constitutional ED: Denies chills or fever(s) Eyes Eyes: Denies blurry vision or change in vision ENT ENT ED: Denies rhinorrhea or sore throat Cardiovascular Cardiovascular: Denies chest pain or palpitations Respiratory/Chest Respiratory/Chest: Reports cough; Denies dyspnea Gastrointestinal Gastrointestinal: Denies nausea or vomiting Genitourinary Genitourinary ED: Denies dysuria or hematuria Musculoskeletal Musculoskeletal: Reports back pain; Denies neck pain Integumentary Reports rash; Denies abscess Neurologic Neurologic: Denies headache(s) or weakness Allergic/Immunologic Allergic/Immunologic ED: Denies mouth swelling or urticaria EXAM Physical Exam Const Vital Signs: 09/06/24 11:29 09/06/24 12:26 09/06/24 12:26 Temperature 97.4 F L Temperature Source Oral Pulse Rate 81 Respiratory Rate 16 Blood Pressure 158/86 H Blood Pressure Mean 110 Pulse Ox 95 83 91 Oxygen Delivery Method Room Air Room Air Nasal Cannula Oxygen Flow Rate (L/min) 2 09/06/24 14:00 09/06/24 14:27 Temperature Temperature Source Pulse Rate 72 Respiratory Rate 22 H Blood Pressure 163/70 H Blood Pressure Mean 101 Pulse Ox 96 95 Oxygen Delivery Method Room Air Nasal Cannula Oxygen Flow Rate (L/min) 2 Positive well nourished and well developed General Appearance ED: well developed and NAD HEENT Reports moist mucous membranes Neck supple and no JVD Resp normal respiratory effort and clear to auscultation bilaterally Cardio regular rate and regular rhythm GI non-distended Palpation: soft and tender RLQ, RUQ and periumbilical Neuro CN's II-XII intact bilaterally, moves all extremities and no sensory deficits noted Sensorium / Orientation: alert Motor Exam: strength 5/5 throughout Psych mental status grossly normal MDM MDM MDM Narrative Medical decision making narrative: Differential diagnosis includes appendicitis, cholecystitis, cholelithiasis, aortic dissection, aneurysmal leak, pancreatitis, bowel obstruction, perforation, gastroenteritis, and electrolyte abnormality. CT scan of the abdomen and pelvis will be obtained to assess for appendicitis, cholecystitis, a ortic dissection, aneurysmal leak, bowel obstruction, and perforation. CBC will be obtained to assess for leukocytosis and anemia. Comprehensive metabolicprofile will be obtained to assess for hepatic function, renal function, and electrolyte abnormality. Lipase will be obtained to assess for pancreatitis. Urinalysis will be obtained to assess for urinary tract infection and hematuria. Lab Data Attestation: I reviewed the patient's lab results. Lab results narrative: CBC was reviewed and was essentially within normal limits. Comprehensive metabolic profile was reviewed and was within normal limits. Lipase was reviewed and was slightly elevated at 86. Urinalysis was reviewed. Leukocyte esterase was 500 with positive nitrates. There are 50-100 white blood cells and4+ bacteria. Labs: Laboratory Results - last 24 hr 09/06/24 09/06/24 11:49 14:13 WBC 8.7 RBC 4.78 Hgb 15.3 H Hct 45.9 MCV 96.0 MCH 32.0 MCHC 33.3 RDW Std Deviation 56.1 H RDW Coeff of Silvia 16.6 H Plt Count 185 MPV 9.4 Immature Gran % (Auto) 0.500 Neut % (Auto) 83.5 H Lymph % (Auto) 7.7 L [place] % (Auto) 5.4 Eos % (Auto) 2.4 Baso % (Auto) 0.5 Absolute Neuts (auto) 7.2 Absolute Lymphs (auto) 0.67 L Nucleated RBC % 0 Sodium 140 Potassium 3.4 Chloride 102 Carbon Dioxide 24.3 Anion Gap 13 BUN 12 Creatinine 0.81 Estim Creat Clear Calc 59.64 Est GFR (MDRD) Non-Af 78 BUN/Creatinine Ratio 15.0 Glucose 95 Calcium 9.1 Total Bilirubin 1.04 AST 15 ALT < 5 Alkaline Phosphatase 137 H Total Protein 6.8 Albumin 3.8 Globulin 3.0 Albumin/Globulin Ratio 1.3 Lipase 86 H Urine Color Yellow Urine Clarity Sl. Cloudy Urine pH 6.0 Ur Specific [place] 1.015 Urine Protein 30 H Urine Glucose (UA) Normal Urine Ketones Negative Urine Occult Blood 25 H Urine Nitrite Positive H Urine Bilirubin Negative Urine Urobilinogen 1 H Ur Leukocyte Esterase 500 H Urine RBC 0-5 SEEN Urine WBC 50-100 SEEN Ur Squamous Epith Cells 0-5 SEEN Urine Bacteria 4+ Urine Mucus 0 SEEN Radiography Diagnostic Testing: Clinical Impression(s) from Imaging Studies Abdomen/Pelvis CT 09/06/24 12:12 IMPRESSION: Moderate acute uncomplicated appendicitis as detailed above. [facility] and pelvis was obtained. There is evidence of acute uncomplicated appendicitis. There is no abscess or free air. There is no evidence of bowel obstruction. This was interpretedby the radiologist and was also independently reviewed by myself. Treatment and Re-Evaluation :: Patient was given IV fluids, morphine, and Zofran. Patient's oxygen saturation dropped after receiving morphine. Patient was placed on 2 L nasal cannula. Patient's oxygen saturation improved after this. Patient was resting comfortably. Patient was given a dose of Zosyn. Patient was advised of her fi ndings. Case was discussed with Dr. Smiley from general surgery. He will takethe patient to surgery today. Patient and family understand and are agreeable with the plan. All questions were answered. Discharge Plan Triage Chief Complaint: Abd Pain ED Provider: Donovan Vora Dx/Rx/DC Orders Clinical Impression: Acute appendicitis, Urinary tract infection Prescriptions: No Action aspirin [Adult Low Dose Aspirin] 81 mg tablet,delayed release (DR/EC) 81 mg PO QDAY metoprolol tartrate 50 mg tablet 25 mg PO DAILY Qty: 90 3RF Primary Care Provider: Jannet Dey Referrals: Jannet Dey MD [Primary Care Provider] - Print Language: Belarusian Disposition Disposition: Acute Care Hospital [facility] What to do if you have Problems For any increased pain, shortness of breath, bleeding, nausea or vomiting, chestpain, or any unexpected problems, contact your Primary Care Provider. Call [facility] ([phone]) or report tothe closest Emergency Room. Call 911 if necessary. 09/06/24 1724 Cosigner Signature (if applicable): 09/07/24 1356 CC: Dr. Jannet Dey MD ~ Signed [facility]03-16-2025 Discharge summary [facility] Medical Records Department [address] [place] [id number] Discharge Summary 09/07/24 1227 MR#: [id number] Acct: [id number] Name: CHARLIE ESTRADA Rep #:[id number] : 1950 73 From: Yang Smiley MD PCP: Dr. Jannet Dey MD Status:ADM PRISCILA Location: [address] Providers Date of Admission: 09/06/24 Date of Discharge: 09/07/24 Primary Care Physician: Dr. Jannet Dey MD Reason For Visit: APPENDICITIS Diagnosis Discharge Diagnosis (1) Acute appendicitis: Status: Acute Code(s): K35.80 - Unspecified acute appendicitis Plan The patient is a 73-year-old female with acute appendicitis. I have recommendeda laparoscopic appendectomy as treatment. We discussed the details of the planned procedure as well as risks benefits and alternatives. She wishes to proceed. This will begin shortly Medications at Discharge Home Medications aspirin 81 mg tablet,delayed release (Adult Low Dose Aspirin) 81 mg PO QDAY 07/28/24 metoprolol tartrate 50 mg tablet 25 mg (1/2 x 50 mg) PO DAILY #90 tabs 07/28/24 oxycodone-acetaminophen 5 mg-325 mg tablet (Percocet) 1 tab PO Q8H PRN pain 3 days #10 tabs 09/07/24 Hospital Course Operations appendectomy Summary of Care Provided Minutes Spent on Discharge: 20 Hospital Course: The patient is a 73-year-old female who presented yesterday to the emergency department at [facility] with right-sided abdominal pain. This pain had been ongoing for about 2 days. She was seen and evaluated by the ER staff. Herwhite blood cell count was normal however CT scan indicated a retrocecal appendicitis without perforation. Surgery was consulted and immediate plans were put in placeto proceed to laparoscopic appendectomy. The surgery was performed yesterday afternoon. This was well-tolerated. She was admitted overnight for observation and pain control. She did well overnight. She has been tolerating diet and passing flatus. Pain is under good control. She is on2 L of oxygen but this is being weaned. We are anticipating discharge later today as long as her oxygen can be weaned off successfully Physical Exam Narrative She is alert and oriented x 3. She is in no acute distress. Abdomen soft and appropriately tender. Weight / BMI Weight Weight: 159 lb 13.362 oz Body Mass Index (BMI) 25.7 ABG / Lab / Microbiology Data 09/07/24 05:35 09/07/24 05:35 Laboratory: Laboratory Results - last 24 hr 09/06/24 11:49: Sodium 140, Potassium 3.4, Chloride 102, Carbon Dioxide 24.3, Anion Gap 13, BUN 12,Creatinine 0.81, Estim Creat Clear Calc 59.64, Est GFR (MDRD) Non-Af 78, BUN/Creatinine Ratio 15.0,Glucose 95, Calcium 9.1, Total Bilirubin 1.04, AST 15, ALT < 5, Alkaline Phosphatase 137 H, Total Protein 6.8, Albumin 3.8, Globulin 3.0, Albumin/Globulin Ratio 1.3, Lipase 86 H 09/06/24 14:13: Urine Color Yellow, Urine Clarity Sl. Cloudy, Urine pH 6.0, Ur Specific [place] 1.015, Urine Protein 30 H, Urine Glucose (UA) Normal, Urine Ketones Negative, Urine Occult Blood 25 H, Urine Nitrite Positive H, Urine Bilirubin Negative, Urine Urobilinogen 1 H, Ur Leukocyte Esterase 500 H, Urine RBC 0-5 SEEN, Urine WBC 50-100 SEEN, Ur Squamous Epith Cells 0-5 SEEN, Urine Bacteria 4+,Urine Mucus 0 SEEN 09/07/24 05:35: WBC 12.0 H, RBC 4.08 L, Hgb 13.2, Hct 40.0, MCV 98.0, MCH 32.4 H, MCHC 33.0, RDW Std Deviation 58.9 H, RDW Coeff of Silvia 16.9 H, Plt Count 180, MPV 9.9, Immature Gran % (Auto) 0.500, Neut % (Auto) 87.1 H, Lymph % (Auto) 4.9 L, [place] % (Auto) 7.4, Eos % (Auto) 0.0, Baso % (Auto) 0.1, Absolute Neuts (auto)10.5 H, Absolute Lymphs (auto) 0.59 L, Nucleated RBC % 0, Sodium 137, Potassium 3.2 L, Chloride 104, Carbon Dioxide 18.0 L, Anion Gap 16 H, BUN 16, Creatinine 0.93, Estim Creat Clear Calc 56.57, Est GFR (MDRD) Non-Af 66, BUN/Creatinine Ratio 17.5, Glucose 146 H, Calcium 8.2 Microbiology: Microbiology 09/06/24 14:13 Urine, Clean Catch Urine Culture - Preliminary GNR 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 Reading Location: [facility] Instructions Discharge Diet: Light diet - advance as tolerated Discharge Activity: Return to Normal Activity and May Shower May shower in (days): 1 Ice area for (Minutes): 30 Lifting Restrictions: Keep lifting under 20 pounds for about 3 to 4 weeks Call your doctor if your incision/area has: Continuous Slow Oozing, Sudden Increased Bleeding, Increased Pain/ Swelling, Increased Redness, Foul Smelling Discharge and Swelling at the incision site Call your doctor if you observe: Fever of 101 or Higher Cleanse incision/area with: Soap & Water DC O2, CPAP, BIPAP Needs Home O2 Discharge instructions: No DC home with Oxygen: No Please Follow Up With: Yang Smiley MD When: 2 weeks. Please call office to schedule appointment Meaningful Use Info Meaningful Use Meaningful Use Diagnoses (Choose all that apply): None applicable Ischemic Stroke Statin Dosing Therapy Reference: STATIN DOSE THERAPY REFERENCE: * Patients > 75 years receive moderate or high dose statin therapy. * Patients 75 years or YOUNGER should receive HIGH intensity statin dose unless contraindicated. You will be required to document reason for non-treatment if statin daily dose does not meet guidelines. HIGH DOSE STATIN THERAPY DAILY Atorvastatin > than or = to 40 mg Rosuvastatin > than or = to 20 mg Amlodipine + Atorvastatin > than or = to 2.5/40 mg Ezetimibe + Simvastatin 10/80 mg Simvastatin 80mg Discharge Plan Admission Admit Date/Time: 09/06/24 17:25 Primary Reason for Your Visit: Acute appendicitis Attending Provider: Yang Smiley Primary Care Provider: Jannet Dey Discharge Orders/Prescriptions Prescriptions: New oxycodone-acetaminophen [Percocet] 5-325 mg tablet 1 tab PO Q8H PRN (Reason: pain) 3 Days Qty: 10 0RF Continued aspirin [Adult Low Dose Aspirin] 81 mg tablet,delayed release (DR/EC) 81 mg PO QDAY metoprolol tartrate 50 mg tablet 25 mg PO DAILY Qty: 90 3RF Referrals / Follow Up: Jannet Dey MD [Primary Care Provider] - Disposition Disposition (needs filled in before D/C Order can be placed): Home, Self Care 09/07/24 1238 Cosigner Signature (if applicable): CC: Dr. Jannet Dey MD; Dr. Yang Smiley MD~ Signed [facility]03[facility]16-[facility] Consult note Author Donny Allen [facility] Note Date/Time September 06, 2024 5:4 4pm [facility] Medical Records Department [address] [place] [address] Anesthesia Postop Eval I 09/06/24 1742 MR#: [id number] Acct: [id number] Name: CHARLIE ESTRADA Rep #:[id number] : 1950 73 From: Donny Allen MD PCP: Dr. Jannet Dey MD Status:REG SDC Y Race: C Location: [place] [address] Anesthesia: Postop Eval I Current Vital Signs Temperature: 97.5 F Pulse Rate: 62 Blood Pressure: 124/56 Respiratory Rate: 14 Pulse Ox: 98 Oxygen Delivery Method: Nasal Cannula Oxygen Flow Rate (L/min): 2 Assessment Airway patent: Yes Spontaneous unlabored respirations: Yes Mental status: Awake and Calm nausea: No Vomiting: No Anesthesia Complication: No Fluid Hydration Crystalloid volume administer (ml): 900 Total IV fluid infused: 900 Progress Note Anesthesia document: Postop Eval 1 completed: Yes 09/06/241743 <Electronically signed by Donny Martinez D> Date _ Donny Allen MD Cosigner Signature: Date CC: ~ Signed [facility] Work Phone: 1(930) 281-366503-15-2025 Consult note Author [facility] Note Date/Time September 06, 2024 5:4 4pm [facility] Medical Records Department [address] [place] [address] Anesthesia Postop Eval II 09/06/24 174 MR#: [id number] Acct: [id number] Name: CHARLIE ESTRADA Rep #:[id number] : 1950 73 From: Donny Allen MD PCP: Dr. Jannet Dey MD Status:REG [facility] [place] Race: C Location: [place] [address] Anesthesia Postop Eval I Sum Postop Eval Completion status Anesthesia document: Postop Eval 1 completed: Yes Anesthesia Postop Eval I Summary Anesthesia Postop Eval I Summary: Anesthesia Postop Eval I: Assessment Summary 3 Airway patent Yes 09/06/24 17:44 Spontaneous unlabored Yes 09/06/24 17:44 respirations Mental status Awake,Calm 09/06/24 17:44 nausea No 09/06/24 17:44 Vomiting No 09/06/24 17:44 Anesthesia Postop Eval I: Fluid Summary Crystalloid volume administer 900 09/06/24 17:44 (ml) Colloids volume administered ( ml) Blood Product volume administered (ml) Total IV fluid infused 900 09/06/24 17:44 Anesthesia Postop Eval I: Summary Notes Anesthesia Complication No 09/06/24 17:44 Anesthesia Complication Comment: Post-operative progress note Anesthesia: Postop Eval II Evaluation Mental status: Awake and Calm Pain Level: 3 nausea: No Vomiting: No Complications Anesthesia Complication: No 09/06/24 1744 <Electronically signed by Donny Martinze D> Date _ Donny Allen MD Cosigner Signature: Date CC: ~ Signed [facility] Work Phone: [phone]) 506-445103-15-2025 Consult note Author [facility] Note Date/Time September 06, 2024 5:0 0pm [facility] Medical Records Department [address] [place] [address] Pre-Anesthesia Evaluation 09/06/24 1551 MR#: [id number] Acct: [id number] Name: SEANCHARLIE Doug Rep #:[id number] : 1950 73 From: Donny Allen MD PCP: Dr. Jannet Dey MD Status:REG [facility] [place] Race: C Location: [place] [address] ASA Classification* ASA Classification ASA Classification: 3 Assessment & Plan Anesthesia* Anesthesia Assessment Anesthesia Assessment: Discussed sedation and/or anesthesia options, risks, benefits, and alternatives with patient/parents/legal guardian/POA. Questions invited. The patient/parents/legal guardian/POA seems to understand and agrees to proceedwith anesthesia plan. Reviewed the physical assessment, medical history, allergy history and patient home medications list prior to surgery/procedure/anesthetic and documented any changes. Performed airway and anesthesia risk assessments. Procedural Plan Add'l anesthesia plan details: Discussed GA with ETT. Discussed risks of injury to teeth/gums/lips, postop ventilation, need for blood transfusions, and less likely chances of stroke/seizure/allergic rxn/SD or post-op O2 requirement Anesthesia Type Anesthesia Type: General History Source History Obtained from:: Patient and Chart Anesthesia Focused Assessment* Temperature: 97.4 F Pulse Rate: 72 Blood Pressure: 163/70 Respiratory Rate: 22 Pulse Ox: 95 Oxygen Delivery Method: Nasal Cannula Oxygen Flow Rate (L/min): 2 Airway Assessment Mouth opens: 2 cm Mallampati Score: III Teeth Condition: Missing (few missing teeth noted, nothing loose no dentures or removables) Focused Labs Anesthesia Preop lab: CBC WBC 8.7 K/mm3 (4.4-11.0) 09/06/24 11:49 09/06/24 RBC 4.78 M/mm3 (4.2-5.4) 09/06/24 11:49 09/06/24 Hgb 15.3 g/dL (12.0-15.0) H 09/06/24 11:49 5 Hct 45.9 % (37-47) 09/06/24 11:49 09/06/24 Plt Count 185 K/mm3 (150-450) 09/06/24 11:49 09/06/24 CHEMISTRY Potassium 3.4 mmol/L (3.3-5.1) 09/06/24 11:49 09/06/24 Sodium 140 mmol/L (133-145) 09/06/24 11:49 09/06/24 Magnesium 1.6 mg/dL (1.6-2.6) 01/18/21 11:51 01/18/21 BUN 12 mg/dL (4-19) 09/06/24 11:49 09/06/24 Creatinine 0.81 mg/dL (0.70-1.20) 09/06/24 11:49 09/06/24 Glucose 95 mg/dL (70-99) 09/06/24 11:49 09/06/24 TSH 2.190 uIU/mL (0.358-3.740) 06/30/24 12:41 12/17 COAG Pre-Assessment Diagnosis/Proposed Procedure Planned Operative Procedure(s): Laparoscopic Appendectomy Anesthesia History Anesthesia History - reception manager: Anesthesia History - reception manager Hx Hospitalization No 07/04/21 13:29 Any Problems With Anesthesia Cholinesterase deficiency You/Your Family Experience fever (hyperthermia) with Relationship Recent Exposure to Contagious Disease Does patient have nerve stimulator Patient instructed to have device shut off --Does patient have Pacemaker or ICD? When Was Last Pacemaker Check QUESTION #4 FULL TEXT: You/Your Family Experience fever (hyperthermia) with Anesthesia Last Oral Intake Last Oral intake: Last Oral Intake NPO since Meds taken in AM with sips of water? Meds patient instructed to take am of surgery PONV PONV - reception manager: PONV - reception manager Female HX of Motion Sickness HX of N/V After Surgery Non-Smoker Duration of Surgery greater than 60 minutes Number of Risk Factors PONV Score Height & Weight Height & Weight: Anesthesia: Height & Weight Height 5 ft 6 in 09/06/24 11:29 Weight: 68.039 kg 09/06/24 11:29 Body Mass Index (BMI) 24.2 09/06/24 11:29 Respiratory Assessment Respiratory Assessment - reception manager: Respiratory Tract Infection Hx - reception manager Hx Respiratory Tract Infection STOP Sleep Apnea STOP Sleep Apnea - reception manager: STOP Sleep Apnea - reception manager Hx Hypertension Yes 07/04/21 13:29 Hx Sleep Apnea CPAP BIPAP Do you snore loudly (louder than talking or can be heard Do you often feel tired/ fatigued/ sleepy during daytime? Has anyone observed you stop breathing during sleep? STOP Results QUESTION #5 FULL TEXT : Do you snore loudly (louder than talking or can be heard through closed doors)? 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 Specify any problems Hx of Preganancy in last 3 Months Nurse Filling Out Transfusion & Questions: Date: Time: Patient unable to answer at this time (ie. confused, unrespo /Reproduction History /Reproductive History - reception manager: /Reproductive Hx- reception manager Hx Now Gestational Age (in weeks): EDC: Hx Hx [facility] Pleural effusion on left Atelectasis of left lung Postoperative urinary retention Situational insomnia Chronic anxiety Preop exam for internal medicine Acute bronchitis, unspecified COVID-19 Contact with and (suspected) exposure to other viral communicable diseases Elevated MCV Elevated hemoglobin Hypokalemia Enlarged thyroid gland Uncontrolled hypertension Breast lump Hearing problem AAA (abdominal aortic aneurysm) Rash Knee pain, chronic Hay fever Hemorrhoids HTN (hypertension) Home Medications ?Medication ?Instructions ?Recorded ?Last Taken ?Type aspirin 81 mg tablet,delayed 81 mg PO QDAY 07/28/24 Un known History release (Adult Low Dose Aspirin) metoprolol tartrate 50 mg tablet 25 mg (1/2 x 50 mg) P O DAILY #90 07/28/24 Unknown Rx tabs Allergy/AdvReac Type Severity Reaction Status Date / Time NSAIDS (Non-Steroidal AdvReac Nausea Verified 09/06/24 11:32 Anti-Inflamma Family History Other Anxiety with depression Arthritis Asthma Diabetes Hyperlipemia Hypertension Surgical History Status post AAA (abdominal aortic aneurysm) repair History of AAA (abdominal aortic aneurysm) repair Cataract fragments in eye following surgery Social History Smoking Status: Current every day smoker tobacco type: cigarettes alcohol intake: current alcohol intake frequency: holidays/special occasions only substance use type: does not use Review of Systems (Anesthesia) ROS Narrative System reviewed and no additional complaints, except as documented. Physical Exam Const alert and oriented x3 HEENT dentition normal Neck full ROM Resp normal respiratory effort and normal air movement Resp Narrative: on 2L via NC Cardio regular rate, regular rhythm and no murmurs Extremity full ROM Neuro oriented x3 and moves all extremities 09/06/24 1700 <Electronically signed by Donny Vargas> Date _ Donny Allen MD Cosigner Signature: Date CC: ~ Signed [facility] Work Phone: 1(709) 150-118803-15-2025 History and physical note Author Yang Smiley [facility] Note Date/Time September 06, 2024 4:0 5pm [facility] Medical Records Department [address] [place] [address] History & Physical Exam 09/06/24 1601 MR#: [id number] Acct: [id number] Name: CHARLIE ESTRADA Rep #:[id number] : 1950 73 From: Yang Smiley MD PCP: Dr. Jannet Dey MD Status:[facility] Location: [place] [address] HPI - General General Date of Admission: 09/06/24 Date of Service: 09/06/24 Chief Complaint: Right lower quadrant abdominal pain/appendicitis HPI Narrative CHARLIE ESTRADA, is a 73 F who presented to the emergency department at [facility] earlier today with right-sided abdominal pain has been present for a couple of days. She states that it has been getting steadily worse. She statesthat this pain started as a generalized pain which then migrated to the right lower quadrant. She has had some nausea and decreased appetite. No vomiting. She denies any fevers or chills. She did have a previous AAA repair in May2024. This was through a left sided retroperitoneal approach. While seen in the emergency room, she underwent blood work which showed a normal white blood cell count however CT scan showed moderate appendicitis. General surgery was contacted and I recommended laparoscopic appendectomy. [facility] Medical History Pleural effusion on left Atelectasis of left lung Postoperative urinary retention Situational insomnia Chronic anxiety Preop exam for internal medicine Acute bronchitis, unspecified COVID-19 Contact with and (suspected) exposure to other viral communicable diseases Elevated MCV Elevated hemoglobin Hypokalemia Enlarged thyroid gland Uncontrolled hypertension Breast lump Hearing problem AAA (abdominal aortic aneurysm) Rash Knee pain, chronic Hay fever Hemorrhoids HTN (hypertension) Home Medications ?Medication ?Instructions ?Recorded ?Last Taken ?Type aspirin 81 mg tablet,delayed 81 mg PO QDAY 07/28/24 Un known History release (Adult Low Dose Aspirin) metoprolol tartrate 50 mg tablet 25 mg (1/2 x 50 mg) P O DAILY #90 07/28/24 Unknown Rx tabs Allergy/AdvReac Type Severity Reaction Status Date / Time NSAIDS (Non-Steroidal AdvReac Nausea Verified 09/06/24 11:32 Anti-Inflamma Family History Other Anxiety with depression Arthritis Asthma Diabetes Hyperlipemia Hypertension Surgical History Status post AAA (abdominal aortic aneurysm) repair History of AAA (abdominal aortic aneurysm) repair Cataract fragments in eye following surgery Social History Smoking Status: Current every day smoker tobacco type: cigarettes alcohol intake: current alcohol intake frequency: holidays/special occasions only substance use type: does not use Vital Signs Vital Signs Vital Signs: 09/06/24 11:29 09/06/24 12:26 09/06/24 12:26 Temperature 97.4 F L Temperature Source Oral Pulse Rate 81 Respiratory Rate 16 Blood Pressure 158/86 H Blood Pressure Mean 110 Pulse Ox 95 83 91 Oxygen Delivery Method Room Air Room Air Nasal Cannula Oxygen Flow Rate (L/min) 2 09/06/24 14:00 09/06/24 14:27 Temperature Temperature Source Pulse Rate 72 Respiratory Rate 22 H Blood Pressure 163/70 H Blood Pressure Mean 101 Pulse Ox 96 95 Oxygen Delivery Method Room Air Nasal Cannula Oxygen Flow Rate (L/min) 2 Weight Weight: 150 lb Body Mass Index (BMI) 24.2 Physical Exam Narrative She is alert and oriented x 3. She is in no acute distress. Head is normocephalic and atraumatic. Pupils are equal round and reactive to light. Abdomen is soft and nondistended. She does have moderate right lower quadrant tenderness to palpation. No rebound or guarding. Results Lab / Micro Data 09/06/24 11:49 09/06/24 11:49 Labs: Laboratory Results - last 24 hr 09/06/24 11:49: WBC 8.7, RBC 4.78, Hgb 15.3 H, Hct 45.9, MCV 96.0, MCH 32.0, MCHC 33.3, RDW Std Deviation 56.1 H, RDW Coeff of Silvia 16.6 H, Plt Count 185, MPV9.4, Immature Gran % (Auto) 0.500, Neut % (Auto) 83.5 H, Lymph % (Auto) 7.7 L, [place] % (Auto) 5.4, Eos % (Auto) 2.4, Baso % (Auto) 0.5, Absolute Neuts (auto) 7.2, Absolute Lymphs (auto) 0.67 L, Nucleated RBC % 0, Sodium 140, Potassium 3.4, Chloride 102, Carbon Dioxide 24.3, Anion Gap 13, BUN 12, Creatinine 0.81, Estim Creat Clear Calc 59.64, Est GFR (MDRD) Non-Af 78, BUN/Creatinine Ratio 15.0, Glucose 95, Calcium 9.1, Total Bilirubin 1.04, AST 15, ALT < 5, Alkaline Phosphatase 137 H, Total Protein 6.8, Albumin 3.8, Globulin 3.0, Albumin/Globulin Ratio 1.3, Lipase 86 H 09/06/24 14:13: Urine Color Yellow, Urine Clarity Sl. Cloudy, Urine pH 6.0, Ur Specific [place] 1.015, Urine Protein 30 H, Urine Glucose (UA) Normal, Urine Ketones Negative, Urine Occult Blood 25 H, Urine Nitrite Positive H, Urine Bilirubin Negative, Urine Urobilinogen 1 H, Ur Leukocyte Esterase 500 H, Urine RBC 0-5 SEEN, Urine WBC 50-100 SEEN, Ur Squamous Epith Cells 0-5 SEEN, Urine Bacteria 4+, Urine Mucus 0 SEEN Imaging Radiology Impression Abdomen/Pelvis CT 09/06/24 12:12 IMPRESSION: Moderate acute uncomplicated appendicitis as detailed above. Reading Location: [facility] Assessment & Plan Assessment/Plan (1) Acute appendicitis: PLAN: Plan The patient is a 73-year-old female with acute appendicitis. I have recommendeda laparoscopic appendectomy as treatment. We discussed the details of the planned procedure as well as risks benefits and alternatives. She wishes to proceed. This will begin shortly Charges/Coding Visit Charges Inpatient E&M: 30076 Init Hosp L3 09/06/24 1605 <Electronically signed by Yang Smiley MD> Cosigner Signature (if applicable): CC: Dr. Jannet Dey MD; Dr. Yang Smiley MD~ Signed [facility] Work Phone: [phone]) 651-401303-15-2025 Procedure note [facility] Medical Records Department [address] [place] [address] Operative Report 09/06/24 1729 MR#: [id number] Acct: [id number] Name: CHARLIE ESTRADA Rep #:[id number] : 1950 73 From: Yang Smiley MD PCP: Dr. Jannet Dey MD Status:[facility] Location: [facility] A-1 Procedures Digestive [id number]-49xxx: [id number] Laparoscopy appendectomy Operative Report (Standard) Operative Information Date of Procedure: 09/06/24 Pre-Operative Diagnosis: acute appendicitis Post-Operative Diagnosis: same Surgery/Procedure Performed: laparoscopic appendectomy bridge crew member: Yes [employer]: Melisa Rain Tasks completed by first assistant: Closing and Retracting Additional yard assistant?: No Type of Anesthesia: General and Local RN Documented Start/Stop Times: Operation Date: 09/06/24 17:20 Case Time Anesthesia Start 09/06/24 16:19 Into Room 09/06/24 16:19 Procedure Start 09/06/24 16:40 Procedure Start Time: 16:40 Procedure Stop Time: 17:20 Select all DRAINS/GRAFTS/IMPLANTS that apply: None Special Medications: zosyn Estimated Blood Loss: 10ml Specimen collected: Yes Description of specimen(s) removed: appendix Description of surgery: The patient is a 73-year-old female who presented to the emergency department earlier today with right-sided abdominal pain for 2 weeks. She was evaluated bythe emergency department was found to haveacute appendicitis on CT scan. I recommended a laparoscopic appendectomy as treatment. We discussedthe details of the planned procedure including the risks benefits and alternatives. She wished to proceed. She was brought to the operating room today following informed consent antibiotics were given in the emergency department. She was placed supine on the operative table with arms outstretched on arm boards. A general endotracheal anesthesia was then induced. Once asleep, arms were comfortably tucked at her sides. The abdomen was then prepped and draped in theusual sterile manner. A 5 mm incision was made just below the umbilicus which a5 mm trocar was placed optically. This was placed without incident once in place the abdomen is then fully insufflated with CO2 gas. 5 mm 0 degree scope was inserted. There were no signs of bowel or vascular injury. A 5 mm trocar was placed in the left lower quadrant under direct visualization as well as a 12mm trocar placed in the left upper quadrant. She did have some adhesions from her previous AAA repair however these were more lateral to where the 2 trocars were placed. The patient was then positioned with some roll to the left and some headdown positioning. The cecum was identified and grasped. This was reflected in somewhat of a cephalad direction. The base of the appendix was visualized however it was noted to be somewhat retrocecal and lateral. At this point a harmonic scalpel device was obtained. This was used to take down the lateral peritoneal attachments of the cecum and proximal right colon. This allowed the colon to be positioned more medially and allowed visualization of theappendix. The appendix was clearly inflamed but nonruptured. The the appendix was densely adhered to the surrounding tissues. The scope was placed to proximal GI tissue stapler was then progressed the base of the second. Attempted to utilize a vascular stapler to take down the mesoappendix however due to the orientation of the appendix this was not feasible. Instead I used the harmonic scalpel to take down the mesoappendix.. Hemostasis was verygood. The specimen once free was placed into a bag and brought out through the 12 mm trocar site. The trocar was replaced. The right lower quadrant is then copiously irrigated. Again hemostasis was very good I did apply some Jag along the region where the appendix was identified as this was somewhat of a rawsurface but no overt bleeding was noted. Patient was then flattened out. All remaining irrigation fluid was suctioned out. A total of 1.5 L of saline was used to irrigate the right lower quadrant prior to Jag placement. Next the fascia of the 12 mm trocar site was closed using 0 PDS with the aid of the fascial closure device. The remaining trocars were opened up and insufflation was allowed to escape. A total of 20 cc of local anesthetic were injected into the 3 incisions. Incision was then closed with 4-0 Vicryl. Skin glue was then applied as dressing. She was awakened from anesthesia and taken to recovery in good condition. A BORING MACHINE FEEDER was utilized as a first coat sander. Her role included patient positioningand prep, holding the camera, and assistance with wound closure. Surgical Findings: acute retrocecal appendicitis - not ruptured Complications Complications: No Admit VTE Documentation VTE Present on Admission: No VTE Mechan Device Prophylaxis: SCD's VTE Pharm Prophylaxis ordered?: No Reason prophylaxis not ordered: Treatment Not Indicated 09/06/241744 Cosigner Signature (if applicable): CC: Dr. Jannet Dey MD; Dr. Yang Smiley MD~ Signed [facility]03-15-2025 Consult note [facility] Medical Records Department [address] [place] [address] Anesthesia Postop Eval I 09/06/241741 MR#: [id number] Acct: [id number] Name: CHARLIE ESTRADA Rep #:[id number] : 1950 73 From: Donny Allen MD PCP: Dr. Jannet Dey MD Status[place] [place] Race: C Location: [place] [address] Anesthesia: Postop Eval I Current Vital Signs Temperature: 97.5 F Pulse Rate: 62 Blood Pressure: 124/56 Respiratory Rate: 14 Pulse Ox: 98 Oxygen Delivery Method: Nasal Cannula Oxygen Flow Rate (L/min): 2 Assessment Airway patent: Yes Spontaneous unlabored respirations: Yes Mental status: Awake and Calm nausea: No Vomiting: No Anesthesia Complication: No Fluid Hydration Crystalloid volume administer (ml): 900 Total IV fluid infused: 900 Progress Note Anesthesia document: Postop Eval 1 completed: Yes 09/06/241743 D> Date _ Donny Allen MD [facility] Signature: Date CC: ~ Signed [facility]03-15-2025 Consult note [facility] Medical Records Department [address] [place] [address] Anesthesia Postop Eval II 09/06/24 1744 MR#: [id number] Acct: [id number] Name: CHARLIE ESTRADA Rep #:[id number] : 1950 73 From: Donny Allen MD PCP: Dr. Jannet Dey MD Status:[facility] [place] [place] Race: C Location: [facility] AC- TBA-1 Anesthesia Postop Eval I Sum Postop Eval Completion status Anesthesia document: Postop Eval 1 completed: Yes Anesthesia Postop Eval I Summary Anesthesia Postop Eval I Summary: Anesthesia Postop Eval I: Assessment Summary 3 Airway patent Yes 09/06/24 17:44 Spontaneous unlabored Yes 09/06/24 17:44 respirations Mental status Awake,Calm 09/06/24 17:44 nausea No 09/06/24 17:44 Vomiting No 09/06/24 17:44 Anesthesia Postop Eval I: Fluid Summary Crystalloid volume administer 900 09/06/24 17:44 (ml) Colloids volume administered ( ml) Blood Product volume administered (ml) Total IV fluid infused 900 09/06/24 17:44 Anesthesia Postop Eval I: Summary Notes Anesthesia Complication No 09/06/24 17:44 Anesthesia Complication Comment: Post-operative progress note Anesthesia: Postop Eval II Evaluation Mental status: Awake and Calm Pain Level: 3 nausea: No Vomiting: No Complications Anesthesia Complication: No 09/06/24 1744 D> Date _ Donny Allen MD Cosigner Signature: Date CC: ~ Signed [facility]03-15-2025 Consult note [facility] Medical Records Department [address] [place] [address] Pre-Anesthesia Evaluation 09/06/24 1551 MR#: [id number] Acct: [id number] Name: CHARLIE ESTRADA Rep #:[id number] : 1950 73 From: Donny Allen MD PCP: Dr. Jannet Dey MD Status:[facility] Y Race: C Location: [place] [address] ASA Classification* ASA Classification ASA Classification: 3 Assessment & Plan Anesthesia* Anesthesia Assessment Anesthesia Assessment: Discussed sedation and/or anesthesia options, risks, benefits, and alternatives with patient/parents/legal guardian/POA. Questions invited. The patient/parents/legal guardian/POA seems to understand and agrees to proceedwith anesthesia plan. Reviewed the physical assessment, medical history, allergy history and patient home medications list prior to surgery/procedure/anesthetic and documented any changes. Performed airway and anesthesia risk assessments. Procedural Plan Add'l anesthesia plan details: Discussed GA with ETT. Discussed risks of injury to teeth/gums/lips,postop ventilation, need for blood transfusions, and less likely chances of stroke/seizure/allergicrxn/SD or post-op O2 requirement Anesthesia Type Anesthesia Type: General History Source History Obtained from:: Patient and Chart Anesthesia Focused Assessment* Temperature: 97.4 F Pulse Rate: 72 Blood Pressure: 163/70 Respiratory Rate: 22 Pulse Ox: 95 Oxygen Delivery Method: Nasal Cannula Oxygen Flow Rate (L/min): 2 Airway Assessment Mouth opens: 2 cm Mallampati Score: III Teeth Condition: Missing (few missing teeth noted, nothing loose no dentures or removables) Focused Labs Anesthesia Preop lab: CBC WBC 8.7 K/mm3 (4.4-11.0) 09/06/24 11:49 09/06/24 RBC 4.78 M/mm3 (4.2-5.4) 09/06/24 11:49 09/06/24 Hgb 15.3 g/dL (12.0-15.0) H 09/06/24 11:49 5 Hct 45.9 % (37-47) 09/06/24 11:49 09/06/24 Plt Count 185 K/mm3 (150-450) 09/06/24 11:49 09/06/24 CHEMISTRY Potassium 3.4 mmol/L (3.3-5.1) 09/06/24 11:49 09/06/24 Sodium 140 mmol/L (133-145) 09/06/24 11:49 09/06/24 Magnesium 1.6 mg/dL (1.6-2.6) 01/18/21 11:51 01/18/21 BUN 12 mg/dL (4-19) 09/06/24 11:49 09/06/24 Creatinine 0.81 mg/dL (0.70-1.20) 09/06/24 11:49 09/06/24 Glucose 95 mg/dL (70-99) 09/06/24 11:49 09/06/24 TSH 2.190 uIU/mL (0.358-3.740) 06/30/24 12:41 12/17 COAG Pre-Assessment Diagnosis/Proposed Procedure Planned Operative Procedure(s): Laparoscopic Appendectomy Anesthesia History Anesthesia History - reception manager: Anesthesia History - reception manager Hx Hospitalization No 07/04/21 13:29 Any Problems With Anesthesia Cholinesterase deficiency You/Your Family Experience fever (hyperthermia) with Relationship Recent Exposure to Contagious Disease Does patient have nerve stimulator Patient instructed to have device shut off --Does patient have Pacemaker or ICD? When Was Last Pacemaker Check QUESTION #4 FULL TEXT: You/Your Family Experience fever (hyperthermia) with Anesthesia Last Oral Intake Last Oral intake: Last Oral Intake NPO since Meds taken in AM with sips of water? Meds patient instructed to take am of surgery PONV PONV - reception manager: PONV - reception manager Female HX of Motion Sickness HX of N/V After Surgery Non-Smoker Duration of Surgery greater than 60 minutes Number of Risk Factors PONV Score Height & Weight Height & Weight: Anesthesia: Height & Weight Height 5 ft 6 in 09/06/24 11:29 Weight: 68.039 kg 09/06/24 11:29 Body Mass Index (BMI) 24.2 09/06/24 11:29 Respiratory Assessment Respiratory Assessment - reception manager: Respiratory Tract Infection Hx - reception manager Hx Respiratory Tract Infection STOP Sleep Apnea STOP Sleep Apnea - reception manager: STOP Sleep Apnea - reception manager Hx Hypertension Yes 07/04/21 13:29 Hx Sleep Apnea CPAP BIPAP Do you snore loudly (louder than talking or can be heard Do you often feel tired/ fatigued/ sleepy during daytime? Has anyone observed you stop breathing during sleep? STOP Results QUESTION #5 FULL TEXT : Do you snore loudly (louder than talking or can be heard through closeddoors)? 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 Specify any problems Hx of Preganancy in last 3 Months Nurse Filling Out Transfusion & Questions: Date: Time: Patient unable to answer at this time (ie. confused, unrespo /Reproduction History /Reproductive History - reception manager: /Reproductive Hx- reception manager Hx Now Gestational Age (in weeks): EDC: Hx Hx Para [facility] History Pleural effusion on left Atelectasis of left lung Postoperative urinary retention Situational insomnia Chronic anxiety Preop exam for internal medicine Acute bronchitis, unspecified COVID-19 Contact with and (suspected) exposure to other viral communicable diseases Elevated MCV Elevated hemoglobin Hypokalemia Enlarged thyroid gland Uncontrolled hypertension Breast lump Hearing problem AAA (abdominal aortic aneurysm) Rash Knee pain, chronic Hay fever Hemorrhoids HTN (hypertension) Home Medications ?Medication ?Instructions ?Recorded ?Last Taken ?Type aspirin 81 mg tablet,delayed 81 mg PO QDAY 07/28/24 Un known History release (Adult Low Dose Aspirin) metoprolol tartrate 50 mg tablet 25 mg (1/2 x 50 mg) P O DAILY #90 07/28/24 Unknown Rx tabs Allergy/AdvReac Type Severity Reaction Status Date / Time NSAIDS (Non-Steroidal AdvReac Nausea Verified 09/06/24 11:32 Anti-Inflamma Family History Other Anxiety with depression Arthritis Asthma Diabetes Hyperlipemia Hypertension Surgical History Status post AAA (abdominal aortic aneurysm) repair History of AAA (abdominal aortic aneurysm) repair Cataract fragments in eye following surgery Social History Smoking Status: Current every day smoker tobacco type: cigarettes alcohol intake: current alcohol intake frequency: holidays/special occasions only substance use type: does not use Review of Systems (Anesthesia) ROS Narrative System reviewed and no additional complaints, except as documented. Physical Exam Const alert and oriented x3 HEENT dentition normal Neck full ROM Resp normal respiratory effort and normal air movement Resp Narrative: on 2L via NC Cardio regular rate, regular rhythm and no murmurs Extremity full ROM Neuro oriented x3 and moves all extremities 09/06/24 1700 D> Date _ Donny Allen MD Cosigner Signature: Date CC: ~ Signed [facility]03-15-2025 History and physical note [facility] Medical Records Department [address] [place] [address] History & Physical Exam 09/06/24 1601 MR#: [id number] Acct: [id number] Name: CHARLIE ESTRADA Rep #:[id number] : 1950 73 From: Yang Smiley MD PCP: Dr. Jannet Dey MD Status[place] Location: [facility] A HPI - General General Date of Admission: 09/06/24 Date of Service: 09/06/24 Chief Complaint: Right lower quadrant abdominal pain/appendicitis HPI Narrative CHARLIE ESTRADA, is a 73 F who presented to the emergency department at [facility] earlier today with right-sided abdominal pain has been present for a couple of days. She states that it has beengetting steadily worse. She statesthat this pain started as a generalized pain which then migrated to the right lower quadrant. She has had some nausea and decreased appetite. No vomiting. She deniesany fevers or chills. She did have a previous AAA repair in May2024. This was through a left sided retroperitoneal approach. While seen in the emergency room, she underwent blood work which showed a normal white blood cell count however CT scan showed moderate appendicitis. General surgery wascontacted and I recommended laparoscopic appendectomy. [facility] Medical History Pleural effusion on left Atelectasis of left lung Postoperative urinary retention Situational insomnia Chronic anxiety Preop exam for internal medicine Acute bronchitis, unspecified COVID-19 Contact with and (suspected) exposure to other viral communicable diseases Elevated MCV Elevated hemoglobin Hypokalemia Enlarged thyroid gland Uncontrolled hypertension Breast lump Hearing problem AAA (abdominal aortic aneurysm) Rash Knee pain, chronic Hay fever Hemorrhoids HTN (hypertension) Home Medications ?Medication ?Instructions ?Recorded ?Last Taken ?Type aspirin 81 mg tablet,delayed 81 mg PO QDAY 07/28/24 Un known History release (Adult Low Dose Aspirin) metoprolol tartrate 50 mg tablet 25 mg (1/2 x 50 mg) P O DAILY #90 07/28/24 Unknown Rx tabs Allergy/AdvReac Type Severity Reaction Status Date / Time NSAIDS (Non-Steroidal AdvReac Nausea Verified 09/06/24 11:32 Anti-Inflamma Family History Other Anxiety with depression Arthritis Asthma Diabetes Hyperlipemia Hypertension Surgical History Status post AAA (abdominal aortic aneurysm) repair History of AAA (abdominal aortic aneurysm) repair Cataract fragments in eye following surgery Social History Smoking Status: Current every day smoker tobacco type: cigarettes alcohol intake: current alcohol intake frequency: holidays/special occasions only substance use type: does not use Vital Signs Vital Signs Vital Signs: 09/06/24 11:29 09/06/24 12:26 09/06/24 12:26 Temperature 97.4 F L Temperature Source Oral Pulse Rate 81 Respiratory Rate 16 Blood Pressure 158/86 H Blood Pressure Mean 110 Pulse Ox 95 83 91 Oxygen Delivery Method Room Air Room Air Nasal Cannula Oxygen Flow Rate (L/min) 2 09/06/24 14:00 09/06/24 14:27 Temperature Temperature Source Pulse Rate 72 Respiratory Rate 22 H Blood Pressure 163/70 H Blood Pressure Mean 101 Pulse Ox 96 95 Oxygen Delivery Method Room Air Nasal Cannula Oxygen Flow Rate (L/min) 2 Weight Weight: 150 lb Body Mass Index (BMI) 24.2 Physical Exam Narrative She is alert and oriented x 3. She is in no acute distress. Head is normocephalic and atraumatic. Pupils are equal round and reactive to light. Abdomen is soft and nondistended. She does have moderate right lower quadrant tenderness to palpation. No rebound or guarding. Results Lab / Micro Data 09/06/24 11:49 09/06/24 11:49 Labs: Laboratory Results - last 24 hr 09/06/24 11:49: WBC 8.7, RBC 4.78, Hgb 15.3 H, Hct 45.9, MCV 96.0, MCH 32.0, MCHC 33.3, RDW Std Deviation 56.1 H, RDW Coeff of Silvia 16.6 H, Plt Count 185, MPV9.4, Immature Gran % (Auto) 0.500, Neut % (Auto) 83.5 H, Lymph % (Auto) 7.7 L, [place] % (Auto) 5.4, Eos % (Auto) 2.4, Baso % (Auto) 0.5, Absolute Neuts (auto) 7.2, Absolute Lymphs (auto) 0.67 L, Nucleated RBC % 0, Sodium 140, Potassium 3.4, Chloride 102, Carbon Dioxide 24.3, Anion Gap 13, BUN 12, Creatinine 0.81, Estim Creat Clear Calc 59.64,Est GFR (MDRD) Non-Af 78, BUN/Creatinine Ratio 15.0, Glucose 95, Calcium 9.1, Total Bilirubin 1.04,AST 15, ALT < 5, Alkaline Phosphatase 137 H, Total Protein 6.8, Albumin 3.8, Globulin 3.0, Albumi n/Globulin Ratio 1.3, Lipase 86 H 09/06/24 14:13: Urine Color Yellow, Urine Clarity Sl. Cloudy, Urine pH 6.0, Ur Specific [place] 1.015, Urine Protein 30 H, Urine Glucose (UA) Normal, Urine Ketones Negative, Urine Occult Blood 25 H, Urine Nitrite Positive H, Urine Bilirubin Negative, Urine Urobilinogen 1 H, Ur Leukocyte Esterase 500 H, Urine RBC 0-5 SEEN, Urine WBC 50-100 SEEN, Ur Squamous Epith Cells 0-5 SEEN, Urine Bacteria 4+,Urine Mucus 0 SEEN Imaging Radiology Impression Abdomen/Pelvis CT 09/06/24 12:12 IMPRESSION: Moderate acute uncomplicated appendicitis as detailed above. Reading Location: [facility] Assessment & Plan Assessment/Plan (1) Acute appendicitis: PLAN: Plan The patient is a 73-year-old female with acute appendicitis. I have recommendeda laparoscopic appendectomy as treatment. We discussed the details of the planned procedure as well as risks benefits and alternatives. She wishes to proceed. This will begin shortly Charges/Coding Visit Charges Inpatient E&M: 65057 Init Hosp L3 09/06/24 1605 Cosigner Signature (if applicable): CC: Dr. Jannet Dey MD; Dr. Yang Smiley MD~ Signed [facility]03-15-2025 [facility]03-15-2025 Radiology Diagnostic study note [facility] Imaging Services [address] [place] [address] Abdomen/Pelvis W IV Cont ONLY MR#: [id number] Acct: [id number] Name: SEANCHARLIE C Rep #: [id number] : 1950 F 73 From: Iglesia Thomas DO PCP: Dr. Jannet Dey MD Status: REG ER Study:Abdomen/Pelvis W IV Cont ONLY Date of E xam: 09/06/24 Exam# [id number] Ordering Dr: Donovan Vora DO PROCEDURE: CT abdomen pelvis with IV contrast REASON FOR EXAM: Pain TECHNIQUE: Multiple contiguous axial images through the abdomen and pelvis were obtained after the administration of intravenous contrast. Two-dimensional coronal and sagittal reformatted images were reconstructed. Low- dose imaging technique was utilized. COMPARISON: 07/02/2023 FINDINGS: Bibasilar scarring/atelectasis, greater on the left. Liver, spleen, pancreas and adrenal glands arewithin normal limits. Gallbladder is satisfactory. No significant biliary ductal dilation. Kidneys enhance symmetrically.No suspicious renal mass, calculi or significant hydronephrosis. Small diverticula along the posterolateral aspects of the right and left bladder. Distal colonic diverticulosis. No bowel obstruction. Dilated fluid-filled retrocecal appendix measuring upto 10 mm in diameter with mucosal hyperenhancement and moderate surrounding inflammatory changes consistent with acute appendicitis. No periappendiceal abscess or free air. No pelvic free fluid. Postsurgical changes of the abdominal aorta which is mildly ectatic. No bulky adenopathy. Scarring along the left inguinal region. No acute osseous abnormality. Chronic compression deformity of L1. CT/Abdomen/Pelvis W IV Cont ONLY IMPRESSION: Moderate acute uncomplicated appendicitis as detailed above. Reading Location: [facility] CC: Dr. Donovan Vora DO; Dr. Jannet Dey MD ~ [employer] Maker: Signed [facility]03-15-2025 Discharge summary Author Donovan Vora [facility] Note Date/Time September 07, 2024 1:5 6pm [facility] Medical Records Department [address] [place] [id number] Emergency Department Summary 09/06/24 MR#: [id number] Acct: [id number] Name: CHARLIE ESTRADA Rep #:[id number] : 1950 73 From: Donovan Davalos PCP: Dr. Jannet Tiburcio, MD Status:ADM PRISC[facility]A Location: [facility]3 [id number] HPI HPI - GI History of Present Illness Chief Complaint: Abd Pain Informant: patient Abdominal Pain/Flank Pain Onset: Days (2) Context: Gradual Onset Timing: Continuous Quality: Burning and Dull Location: RUQ and RLQ Worsened by: Nothing Relieved by: Nothing Nausea/Vomiting/Emesis GI Symptom: Positive for Nausea; Negative for Vomiting Onset: Days Diarrhea/Melena/Hematochezia GI Symptom: Negative for Diarrhea, Melena or Hematochezia Associated Symptoms Associated Symptoms: Positive for Frequency; Negative for Dysuria or Hematuria Narrative Narrative: Patient presents with abdominal pain that has been getting worse over the past 2days. Patient states it is gradually getting worse. Patient states it started as a diffuse abdominal pain but is now in the right side of her abdomen. Patient describes it as dull and burning. Patient states it has been constant. Patient states nothing makes it better and nothing makes it worse. Patient admits to some nausea and decreased appetite. Patient denies any vomiting. Patient denies any diarrhea, melena, or hematochezia. Patient admits to some urinary frequency but denies any dysuria or hematuria. Patient had a recent aortic aneurysm repair on 05/27/2024. [facility] Medical History Pleural effusion on left Atelectasis of left lung Postoperative urinary retention Situational insomnia Chronic anxiety Preop exam for internal medicine Acute bronchitis, unspecified COVID-19 Contact with and (suspected) exposure to other viral communicable diseases Elevated MCV Elevated hemoglobin Hypokalemia Enlarged thyroid gland Uncontrolled hypertension Breast lump Hearing problem AAA (abdominal aortic aneurysm) Rash Knee pain, chronic Hay fever Hemorrhoids HTN (hypertension) Home Medications ?Medication ?Instructions ?Recorded ?Last Taken ?Type aspirin 81 mg tablet,delayed 81 mg PO QDAY 07/28/24 Un known History release (Adult Low Dose Aspirin) metoprolol tartrate 50 mg tablet 25 mg (1/2 x 50 mg) P O DAILY #90 07/28/24 Unknown Rx tabs Allergy/AdvReac Type Severity Reaction Status Date / Time NSAIDS (Non-Steroidal AdvReac Nausea Verified 09/06/24 11:32 Anti-Inflamma Family History Other Anxiety with depression Arthritis Asthma Diabetes Hyperlipemia Hypertension Surgical History Status post AAA (abdominal aortic aneurysm) repair History of AAA (abdominal aortic aneurysm) repair Cataract fragments in eye following surgery Social History Smoking Status: Current every day smoker tobacco type: cigarettes alcohol intake: current alcohol intake frequency: holidays/special occasions only substance use type: does not use ROS ROS ED Constitutional Constitutional ED: Denies chills or fever(s) Eyes Eyes: Denies blurry vision or change in vision ENT ENT ED: Denies rhinorrhea or sore throat Cardiovascular Cardiovascular: Denies chest pain or palpitations Respiratory/Chest Respiratory/Chest: Reports cough; Denies dyspnea Gastrointestinal Gastrointestinal: Denies nausea or vomiting Genitourinary Genitourinary ED: Denies dysuria or hematuria Musculoskeletal Musculoskeletal: Reports back pain; Denies neck pain Integumentary Reports rash; Denies abscess Neurologic Neurologic: Denies headache(s) or weakness Allergic/Immunologic Allergic/Immunologic ED: Denies mouth swelling or urticaria EXAM Physical Exam Const Vital Signs: 09/06/24 11:29 09/06/24 12:26 09/06/24 12:26 Temperature 97.4 F L Temperature Source Oral Pulse Rate 81 Respiratory Rate 16 Blood Pressure 158/86 H Blood Pressure Mean 110 Pulse Ox 95 83 91 Oxygen Delivery Method Room Air Room Air Nasal Cannula Oxygen Flow Rate (L/min) 2 09/06/24 14:00 09/06/24 14:27 Temperature Temperature Source Pulse Rate 72 Respiratory Rate 22 H Blood Pressure 163/70 H Blood Pressure Mean 101 Pulse Ox 96 95 Oxygen Delivery Method Room Air Nasal Cannula Oxygen Flow Rate (L/min) 2 Positive well nourished and well developed General Appearance ED: well developed and NAD HEENT Reports moist mucous membranes Neck supple and no JVD Resp normal respiratory effort and clear to auscultation bilaterally Cardio regular rate and regular rhythm GI non-distended Palpation: soft and tender RLQ, RUQ and periumbilical Neuro CN's II-XII intact bilaterally, moves all extremities and no sensory deficits noted Sensorium / Orientation: alert Motor Exam: strength 5/5 throughout Psych mental status grossly normal MDM MDM MDM Narrative Medical decision making narrative: Differential diagnosis includes appendicitis, cholecystitis, cholelithiasis, aortic dissection, aneurysmal leak, pancreatitis, bowel obstruction, perforation, gastroenteritis, and electrolyte abnormality. CT scan of the abdomen and pelvis will be obtained to assess for appendicitis, cholecystitis, aortic dissection, aneurysmal leak, bowel obstruction, and perforation. CBC will be obtained to assess for leukocytosis and anemia. Comprehensive metabolicprofile will be obtained to assess for hepatic function, renal function, and electrolyte abnormality. Lipase will be obtained to assess for pancreatitis. Urinalysis will be obtained to assess for urinary tract infection and hematuria. Lab Data Attestation: I reviewed the patient's lab results. Lab results narrative: CBC was reviewed and was essentially within normal limits. Comprehensive metabolic profile was reviewed and was within normal limits. Lipase was reviewed and was slightly elevated at 86. Urinalysis was reviewed. Leukocyte esterase was 500 with positive nitrates. There are 50-100 white blood cells and4+ bacteria. Labs: Laboratory Results - last 24 hr 09/06/24 09/06/24 11:49 14:13 WBC 8.7 RBC 4.78 Hgb 15.3 H Hct 45.9 MCV 96.0 MCH 32.0 MCHC 33.3 RDW Std Deviation 56.1 H RDW Coeff of Silvia 16.6 H Plt Count 185 MPV 9.4 Immature Gran % (Auto) 0.500 Neut % (Auto) 83.5 H Lymph % (Auto) 7.7 L [place] % (Auto) 5.4 Eos % (Auto) 2.4 Baso % (Auto) 0.5 Absolute Neuts (auto) 7.2 Absolute Lymphs (auto) 0.67 L Nucleated RBC % 0 Sodium 140 Potassium 3.4 Chloride 102 Carbon Dioxide 24.3 Anion Gap 13 BUN 12 Creatinine 0.81 Estim Creat Clear Calc 59.64 Est GFR (MDRD) Non-Af 78 BUN/Creatinine Ratio 15.0 Glucose 95 Calcium 9.1 Total Bilirubin 1.04 AST 15 ALT < 5 Alkaline Phosphatase 137 H Total Protein 6.8 Albumin 3.8 Globulin 3.0 Albumin/Globulin Ratio 1.3 Lipase 86 H Urine Color Yellow Urine Clarity Sl. Cloudy Urine pH 6.0 Ur Specific [place] 1.015 Urine Protein 30 H Urine Glucose (UA) Normal Urine Ketones Negative Urine Occult Blood 25 H Urine Nitrite Positive H Urine Bilirubin Negative Urine Urobilinogen 1 H Ur Leukocyte Esterase 500 H Urine RBC 0-5 SEEN Urine WBC 50-100 SEEN Ur Squamous Epith Cells 0-5 SEEN Urine Bacteria 4+ Urine Mucus 0 SEEN Radiography Diagnostic Testing: Clinical Impression(s) from Imaging Studies Abdomen/Pelvis CT 09/06/24 12:12 IMPRESSION: Moderate acute uncomplicated appendicitis as detailed above. Reading Location: [facility] CT scan of the abdomen and pelvis was obtained. There is evidence of acute uncomplicated appendicitis. There is no abscess or free air. There is no evidence of bowel obstruction. This was interpreted by the radiologist and was also independently reviewed by myself. Treatment and Re-Evaluation :: Patient was given IV fluids, morphine, and Zofran. Patient's oxygen saturation dropped after receiving morphine. Patient was placed on 2 L nasal cannula. Patient's oxygen saturation improved after this. Patient was resting comfortably. Patient was given a dose of Zosyn. Patient was advised of her findings. Case was discussed with Dr. Smiley from general surgery. He will takethe patient to surgery today. Patient and family understand and are agreeable with the plan. All questions were answered. Discharge Plan Triage Chief Complaint: Abd Pain ED Provider: Donovan Vora Dx/Rx/DC Orders Clinical Impression: Acute appendicitis, Urinary tract infection Prescriptions: No Action aspirin [Adult Low Dose Aspirin] 81 mg tablet,delayed release (DR/EC) 81 mg PO QDAY metoprolol tartrate 50 mg tablet 25 mg PO DAILY Qty: 90 3RF Primary Care Provider: Jannet Dey Referrals: Jannet Dey MD [Primary Care Provider] - Print Language: Belarusian Disposition Disposition: Acute Care Hospital [facility] What to do if you have Problems For any increased pain, shortness of breath, bleeding, nausea or vomiting, chestpain, or any unexpected problems, contact your Primary Care Provider. Call [facility] ([phone]) or report to the closest Emergency Room. Call 911 if necessary. 09/06/24 1724 <Electronically signed by Donovan Vora DO> Cosigner Signature (if applicable): 09/07/24 1356 <Electronically signed by Yang Smiley MD> CC: Dr. Jannet Dey MD ~ Signed [facility] Work Phone: 1(441) 397-396302-03-2025 Evaluation note* Diagnosis Onset Date Resolution Status Admit Date Atelectasis of left lung acute July 28, 2024 10:54am Pleural effusion on left acute July 28, 2024 10:54am Status post AAA (abdominal aortic aneurysm) repair acute July 28, 2024 10:54am HTN (hypertension) chronic Februa 2024 10:54am Acute appendicitis resolved September 06, 2024 5:25pm AAA (abdominal aortic aneurysm) acute September 10, 2024 1:14pm Atelectasis of left lung acute September 10, 2024 1:14pm Pleural effusion on left acute September 10, 2024 1:14pm Acute appendicitis resolved September 10, 2024 1:14pm Abnormal computed tomography of abdomen and pelvis acute September 5:39am Hypoxia acute October 11 5:39am Multifocal pneumonia acute Apri l 2024 5:39am Streptococcal pneumonia acute A pril 2024 5:39am Acute respiratory failure wi th hypoxia resolved October 11, 2024 5:39am KRYSTA (acute kidney injury) resolved October 11, 2024 5:39am Anemia resolved October 11 5:39am Bradycardia resolved October 11, 025 5:39am COPD with acute exacerbation resolve d October 11, 2024 5:39am Lactic acidosis resolved September 5:39am Leukocytosis resolved October 11, 2024 5:39am Right lower quadrant pain resolved October 11, 2024 5:39am Oral yeast infection acute October 23, 2024 7:19am Pneumonia acute October 23, 2024 7:19am SOB (shortness of breath) acute October 23, 2024 7:19am Dysuria acute October 27, 2024 8:27am Pneumonia acute October 27, 2024 8:27am Postoperative urinary retention acute October 27, 2024 8: 27am Status post AAA (abdominal aortic aneurysm) repair acute October 27, 2024 8:27am Streptococcal pneumonia acute M 2024 8:27am COPD (chronic obstructive pulmonary disease) chronic October 27, 2024 8:27am HTN (hypertension) chronic October 8:27am [facility] Work Phone: 1(322) 615-439901-15-2025 History of Present illness Narrative* 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 [facility] [place] DEPARTMENT OF VASCULAR SURGERY OUTPATIENT VISIT DATE July 09, 2024 OUTPATIENT VISIT TYPE ESTABLISHED SERVICE DATE: 07/09/2024 SERVICE TIME: 11:15 AM PRIMARY CARE PHYSICIAN: Jannet Dey MD HISTORY OF PRESENT ILLNESS: Ms. Estrada is a 73 year old female who presents today for a vascular surgery follow-up visit. Pt is s/p: Operations during Hospitalization: 05/27/2024 w/Dr Lester: RP repair type IV thoracoabdominal aortic aneurysm repair with bifurcated 20x10 gelsoft graft beveled proximally and sewn distally to R SRIDHAR at bifurcation and distally to L EIA with jump graft to L hypo w/ 6mm gelsoft graft. Bilateral renal bypass w/ 6mm gelsoft graft. Patient reporting today: -Denies fever/chills/purulent drainage -Denies abdominal pain. Pt reports some pain in upper back -Denies chest pain -Pt reports occasional SOB - she is on 3L home O2 -Ambulating short distances without difficulty -Appetite is improving and pt reports regular BMs -Denies urinary issues Vascular health status: Smoking status: former smoker Antiplatelet/Anticoagulation: aspirin Statin/PCSK9 inhibitor: none PAST MEDICAL HISTORY Diagnosis Date Essential hypertension Psychiatric disorder depression PAST SURGICAL HISTORY Procedure Laterality Date REM LESION FACE,EAR,EYE 2.1-3 CM 03/03/08 EXCISION LESION FACE performed by JONH YOUNGER at [facility] TONSILLECTOMY HX SOCIAL HISTORY Social History Tobacco Use Smoking status: Every Day Current packs/day: 0.50 Types: Cigarettes Smokeless tobacco: Never Tobacco comments: Reports 1-2 cigarettes/day on 05/05/24. Substance Use Topics Alcohol use: Yes Comment: 3-5 drinks daily as of 05/05/24 Drug use: No MEDICATIONS: potassium chloride ER (KLOR-CON) 20 mEq tablet Take 20 mEq by mouth once daily. For 20 days stared 07/05/24 NAPROXEN SODIUM (ALEVE ORAL) Take by mouth as needed. amLODIPine (NORVASC) 10 mg tablet Take 1 tablet by mouth once daily. HOLD UNTIL SBP > 120 (Patient not taking: Reported on 07/09/2024) metoprolol tartrate, short acting, (LOPRESSOR) 50 mg tablet Take 1 tablet by mouth two times a day.HOLD UNTIL SBP > 120 (Patient not taking: Reported on 07/09/2024) tamsulosin (FLOMAX) 0.4 mg Take 1 capsule by mouth once daily. acetaminophen (TYLENOL) 325 mg tablet Take 2 tablets by mouth every 4 hours as needed for pain. (Patient not taking: Reported on 07/09/2024) methocarbamol (ROBAXIN) 750 mg tablet Take 1 tablet by mouth three times a day. (Patient not taking: Reported on 07/09/2024) senna-docusate (SENNA-S) 8.6-50 mg per tablet Take 1 tablet by mouth two times a day. (Patient not taking: Reported on 07/09/2024) traZODone (DESYREL) 100 mg tablet (Patient not taking: Reported on 07/09/2024) aspirin, enteric coated (ASPIRIN, ENTERIC COATED) 81 mg EC tablet Take 81 mg by mouth once daily. (Patient not taking: Reported on 07/09/2024) ALLERGIES: ALLERGIES No Known Allergies PHYSICAL EXAM: BP 129/86 Pulse 86 General: Alert and oriented Integumentary: Left lateral abdominal incision c/d/I with scabbing present. No erythema or drainagenoted. HEENT: EOM intact Cardiovascular: Normal S1 & S2, Pulse regular. Lungs: Normal breath sounds, no wheezes or crackles. Abdomen: Soft, non-tender, no rigidity. Extremities: No deformity, no edema or tenderness, no joint swelling or clubbing. Neurological: Normal cognition and motor skills. Vascular: Radial Pulse Right: Normal - Left: Normal Femoral Pulse Right: Normal - Left: Normal Diagnostic tests reviewed for today's visit: None IMPRESSION: Ms. Estrada is a 73 year old female s/p open AAA repair on 05/27/2024. Pt is doing well post-operatively. Abdominal incision almost completely healed. No s/s of infection. Appetite has been improving and pt reports regular BMs. PLAN and RECOMMENDATIONS: - Continue optimal medical management - Keep incision clean, wash daily with mild soap and water then pat dry - Continue aspirin - Continue cardiovascular risk factor modification with blood pressure control and statin therapy as tolerated - Follow up in 3 months for office visit with Dr Lester - Repeat CTA CAP in 12 months - Return sooner if clinically indicated SIGNATURE: Cassy Ko APRN.CNP PATIENT NAME: Charlie Estrada DATE: July 09, 2024 TIME: 1611 [facility]* Diagnosis Onset Date Resolution Status Admit Date AAA (abdominal aortic aneurysm) acute June 30 11:11am Atelectasis of left lung acute June 30, 2024 11:11am Postoperative urinary retention acute June 30 11:11am Status post AAA (abdominal aortic aneurysm) repair acute June 30, 2024 11:11am HTN (hypertension) chronic Junua2024 11:11am Atelectasis of left lung acute July 28, 2024 10:54am Pleural effusion on left acute July 28, 2024 10:54am Status post AAA (abdominal aortic aneurysm) repair acute July 28, 2024 10:54am HTN (hypertension) chronic Februa ry 2024 10:54am Acute appendicitis resolved September 06, 2024 5:25pm AAA (abdominal aortic aneurysm) acute September 10, 2024 1:14pm Atelectasis of left lung acute September 10, 2024 1:14pm Pleural effusion on left acute September 10, 2024 1:14pm Acute appendicitis resolved September 10, 2024 1:14pm [facility] Work Phone: 1(774) 151-615901-06-2025 Evaluation note* Diagnosis Onset Date Resolution Status Admit Date AAA (abdominal aortic aneurysm) acute June 30 11:11am Atelectasis of left lung acute June 30, 2024 11:11am Postoperative urinary retention acute June 30 11:11am Status post AAA (abdominal aortic aneurysm) repair acute June 30, 2024 11:11am HTN (hypertension) chronic Junuar y 2024 11:11am Atelectasis of left lung acute July 28, 2024 10:54am Pleural effusion on left acute July 28, 2024 10:54am Status post AAA (abdominal aortic aneurysm) repair acute July 28, 2024 10:54am HTN (hypertension) chronic Februa ry 2024 10:54am Acute appendicitis resolved September 06, 2024 5:25pm AAA (abdominal aortic aneurysm) acute September 10, 2024 1:14pm Atelectasis of left lung acute September 10, 2024 1:14pm Pleural effusion on left acute September 10, 2024 1:14pm Acute appendicitis resolved September 10, 2024 1:14pm Abnormal computed tomography of abdomen and pelvis acute September 5:39am Acute respiratory failure wi th hypoxia acute October 11, 2024 5:39am KRYSTA (acute kidney injury) acute October 11, 2024 5:39am Anemia acute October 11 5:39am Bradycardia acute October 11 5:39am Hypoxia acute October 11 5:39am Lactic acidosis acute September 5:39am Leukocytosis acute October 11, 2024 5:39am Multifocal pneumonia acute Apri l 2024 5:39am Right lower quadrant pain acute October 11, 2024 5:39am Streptococcal pneumonia acute A pril 2024 5:39am COPD with acute exacerbation chronic October 11, 2024 5:39am [facility] Work Phone: 1(256) 495-947912-16-2024 Evaluation note* Diagnosis Onset Date Resolution Status Admit Date AAA (abdominal aortic aneurysm) acute June 09, 10:25am Atelectasis of left lung acute June 09, 2024 10:25am Postoperative urinary retention acute June 09 10:25am HTN (hypertension) chronic Decemb er 2023 10:25am AAA (abdominal aortic aneurysm) acute June 30 11:11am Atelectasis of left lung acute June 30, 2024 11:11am Postoperative urinary retention acute June 30 11:11am Status post AAA (abdominal aortic aneurysm) repair acute June 30, 2024 11:11am HTN (hypertension) chronic Januar y 2024 11:11am Atelectasis of left lung acute July 28, 2024 10:54am Pleural effusion on left acute July 28, 2024 10:54am Status post AAA (abdominal aortic aneurysm) repair acute July 28, 2024 10:54am HTN (hypertension) chronic Februa ry 2024 10:54am Acute appendicitis acute September 06, 2024 3:30pm [facility] Work Phone: 1(320) 118-731812-16-2024 Evaluation note* Diagnosis Onset Date Resolution Status Admit Date AAA (abdominal aortic aneurysm) acute June 09, 024 10:25am Atelectasis of left lung acute June 09, 2024 10:25am Postoperative urinary retention acute June 09 10:25am HTN (hypertension) chronic Decemb er 2023 10:25am AAA (abdominal aortic aneurysm) acute June 30 11:11am Atelectasis of left lung acute June 30, 2024 11:11am Postoperative urinary retention acute June 30 11:11am Status post AAA (abdominal aortic aneurysm) repair acute June 30, 2024 11:11am HTN (hypertension) chronic Januar y 2024 11:11am Atelectasis of left lung acute July 28, 2024 10:54am Pleural effusion on left acute July 28, 2024 10:54am Status post AAA (abdominal aortic aneurysm) repair acute July 28, 2024 10:54am HTN (hypertension) chronic Februa ry 2024 10:54am Acute appendicitis acute September 06, 2024 5:25pm [facility] Work Phone: 1(374) 187-777412-16-2024 Evaluation note* Diagnosis Onset Date Resolution Status Admit Date AAA (abdominal aortic aneurysm) acute June 09, 10:25am Atelectasis of left lung acute June 09, 2024 10:25am Postoperative urinary retention acute June 09 024 10:25am HTN (hypertension) chronic Decemb er 2023 10:25am AAA (abdominal aortic aneurysm) acute June 30 11:11am Atelectasis of left lung acute June 30, 2024 11:11am Postoperative urinary retention acute June 30 11:11am Status post AAA (abdominal aortic aneurysm) repair acute June 30, 2024 11:11am HTN (hypertension) chronic Januar y 2024 11:11am Atelectasis of left lung acute July 28, 2024 10:54am Pleural effusion on left acute July 28, 2024 10:54am Status post AAA (abdominal aortic aneurysm) repair acute July 28, 2024 10:54am HTN (hypertension) chronic Februa 2024 10:54am Acute appendicitis acute September 06, 2024 5:25pm AAA (abdominal aortic aneurysm) acute September 10, 2024 1:14pm Acute appendicitis acute September 10, 2024 1:14pm Atelectasis of left lung acute September 10, 2024 1:14pm Pleural effusion on left acute September 10, 2024 1:14pm [facility] Work Phone: [phone] [id number] Telephone encounter Note* Telephone Encounter - Yuri Louise RN - 06/06/2024 12:53 PM EST 1. Have you noticed any increase in shortness of breath since you left the hospital? no 2. Have you noticed any increased swelling in your feet, ankles, or belly? Skip for vascular pts N/A 3. Have you gained more than 2-3 pounds since discharge? Skip for vascular & EP pts N/A 4. Have you noticed any change in your incision, wound, IV sites since you were discharged as we want you to be aware of any signs of infection (fevers, chills, redness, warmth, swelling, increased tenderness, discharge)? no 5. Are you having any increased pain since discharge? If yes: What type of pain and where? (pressure, sharp pain, dull pain, etc.) No 6. Have you had any unplanned trips to the emergency department or hospital since you were discharged? If yes - why? no 7. Did you fill all of the prescribed medications? If no, do you need help filling your prescription? (Figure out why they re not filled) Yes 8. Do you have any questions about your medications? No 9. Do you have a doctor s appointment scheduled or is someone working on getting you a follow-up appointment? Yes Additional Comments: Pt instructed to contact 24-hour nurse hotline [phone] for any questions or concerns. Pt verbalized understanding. PD nurse confirmed/verified patient's and full name. All clear, closing statement given. Yuri Louise RN [facility]12-13-2024 Miscellaneous Notes* Telephone Encounter - Yuri Louise RN - 06/06/2024 12:53 PM EST 1. Have you noticed any increase in shortness of breath since you left the hospital? no 2. Have you noticed any increased swelling in your feet, ankles, or belly? Skip for vascular pts N/A 3. Have you gained more than 2-3 pounds since discharge? Skip for vascular & EP pts N/A 4. Have you noticed any change in your incision, wound, IV sites since you were discharged as we want you to be aware of any signs of infection (fevers, chills, redness, warmth, swelling, increased tenderness, discharge)? no 5. Are you having any increased pain since discharge? If yes: What type of pain and where? (pressure, sharp pain, dull pain, etc.) No 6. Have you had any unplanned trips to the emergency department or hospital since you were discharged? If yes - why? no 7. Did you fill all of the prescribed medications? If no, do you need help filling your prescription? (Figure out why they re not filled) Yes 8. Do you have any questions about your medications? No 9. Do you have a doctor s appointment scheduled or is someone working on getting you a follow-up appointment? Yes Additional Comments: Pt instructed to contact 24-hour nurse hotline [phone] for any questions or concerns. Pt verbalized understanding. PD nurse confirmed/verified patient's and full name. All clear, closing statement given. Yuri Louise RN documented [facility]Ad[facility]12[facility] Telephone encounter Note * Telephone Encounter - Yuri Louise RN - 06/05/2024 12:04 PM EST [facility] nurse called patient for follow up from recent hospital discharge, but no answer. Left message on [employer] including resource nurse phone number. Yuri Louise RN [facility]12-12-2024 Miscellaneous Notes* Telephone Encounter - Yuri Louise RN - 06/05/2024 12:04 PM EST PD nurse called patient for follow up from recent hospital discharge, but no answer. Left message on [employer] including resource nurse phone number. Yuri Louise RN documented in this encounterAd[facility]12-[facility]-2024 [facility]20[facility] Note[facility]12-10-2024 [facility]12-09-2024 Note [facility]12-08-2024 [facility]12-07-2024 Note[facility]12-06-2024 [facility] 05-29-2024 Note[facility]12-05-2024 Note[facility]12-04-2024 Note[facility]12-04-2024 Note[facility]12-03-2024 [facility]12[facility]03-2024 Note [facility]12-03-2024 [facility]12-03-2024 [facility]12-02-2024 Telephone encounter Note* Telephone Encounter - Jackie Blanc - 05/26/2024 12:07 PM EST Called and gave patient the following arrival instructions: 5:30 am arrival to J1-2 NPO after midnight Continue following all medication guidelines Patient verbalized understanding [facility]12-02-2024 Miscellaneous Notes* Telephone Encounter - Jackie Blanc - 05/26/2024 12:07 PM EST Called and gave patient the following arrival instructions: 5:30 am arrival to J1-2 NPO after midnight Continue following all medication guidelines Patient verbalized understanding documented in this encounterAdams [facility]11-11-2024 NoteHNO ID: [id number] Author: YOBANI LESTER MD Service: ? Author Type: Physician Type: Progress Notes Filed: 05/05/2024 10:33 Note Text: Consent obtained Open retroperitoneal thoracoabdominal aneurysm repair with bilateral renal artery bypassesGrand [facility]11-11-2024 History of Present illness Narrative* Yobani Lester MD - 05/05/2024 10:28 AM EST Consent obtained Open retroperitoneal thoracoabdominal aneurysm repair with bilateral renal artery bypasses documented in this encounterAdams [facility]11-11-2024 History of Present illness Narrative* Guillermo Dumas RT(R) - 05/05/2024 10:00 AM EST RADIOLOGY SERVICE PROGRESS NOTE SERVICE DATE: 05/05/2024 SERVICE TIME: 11:08 AM PATIENT IDENTITY VERIFICATION COMPLETED USING TWO (2) STANDARD IDENTIFIERS: Name and Date of confirmed by patient verbally FALL SCREENING: Has the patient had 2 falls in the last year or 1 fall with injury or currently using an Ambulatory Assistive Device (Walker, Cane, Wheelchair, Crutches, etc.)? No PATIENT GENDER DATA: .female ALLERGIES: Reviewed and updated MEDICATIONS REVIEWED: No PATIENT RELEVANT IMPLANT DATA REVIEWED: Not Applicable PATIENT PRESENTS WITH AN IMPLANTABLE OR ATTACHED BOBBIN DUMPER: No CREATININE: Creatinine (POCT) Date Value Ref Range Status 04/03/2024 0.90 0.7 - 1.4 mg/dL Final eGFR (POCT) Date Value Ref Range Status 04/03/2024 >60 mL/min/1.73 m2 Final P.O.C.T. RESULTS: N/A May 05, [address] PERFORMED: No IV SITE: Ambulatory: A peripheral IV was started in the Right antecubital site with a Angio cath: 22 gauge. POST EXAM PIV STATUS: Discontinued PROCEDURE TYPE: NM Stress: 11.8 mCi [id number] was administered IV for Rest Imaging at 1100 by kristen. 32.4 mCi [id number] was administered IV for Stress Imaging at 11:58AM by GUILLERMO DUMAS [facility]. ADMINISTRATION TIME: 1100 PATIENT DISCHARGED TO: Ambulatory patient, left NM department area. Is this a therapy: No A Diagnostic radioactive procedure has taken place, with no further precautions necessary other than routine body substance precautions. More information regarding radiation safety can be found usingSocial Moov link: [email or web address] 20Diagnostic%20Nuclear%20Medicine%[email or web address] SIGNATURE: RT Sergey(R) PATIENT NAME: Charlie Estrada DATE: May 05, 2024 TIME: 11:08 AM PAGER/CONTACT #: * Julee Akins RN - 05/05/2024 10:00 AM EST RADIOLOGY SERVICE PROGRESS NOTE SERVICE DATE: 05/05/2024 SERVICE TIME: 12:01 PM PATIENT IDENTITY VERIFICATION COMPLETED USING TWO (2) STANDARD IDENTIFIERS: Name and Date of confirmed by patient verbally and Name and Date of confirmed by identification band PATIENT GENDER DATA: female ALLERGIES: Reviewed and unchanged MEDICATIONS REVIEWED BY: [employer]acer PROCEDURE TYPE: MO STRESS: 0.4 mg of Lexiscan was administered IV at 1158 by Julee Akins RN . Reversal agent used: None. IV SITE: Ambulatory: A Saline lock was inserted per protocol POST EXAM PIV STATUS: Discontinued PATIENT DISCHARGED TO: Ambulatory patient, left NM department area. A Diagnostic radioactive procedure has taken place, with no further precautions necessary other than routine body substance precautions. More information regarding radiation safety can be found usingSocial Moov link: [email or web address] 20Diagnostic%20Nuclear%20Medicine%[email or web address] SIGNATURE: Julee Akins RN PATIENT NAME: Charlie Estrada DATE: May 05, 2024 TIME: 12:01 PM PAGER/CONTACT #: [phone] documented in this encounterAdams County Hospital11-11-2024 NoteGrand [facility]11-11-2024 NoteGrand [facility]11-11-2024 History and physical note* Kaye Case APRN.STREET ENGINEER - 05/05/2024 9:00 AM EST VASCULAR SURGERY PREOPERATIVE H&P SERVICE DATE: 05/05/24 SERVICE TIME: 0900 PRIMARY CARE PHYSICIAN: Jannet Dey MD REFERRING PROVIDER: Yobani Lester [address] [facility] [address] Consult requested for an opinion regarding the evaluation and treatment of the above. My final impression and recommendations will be communicated back to the requesting physician by way of the shared medical record or letter via [place] mail. CHIEF COMPLAINT/HISTORY OF PRESENT ILLNESS: Chief Complaint: AAA History of Present Illness: Charlie Estrada is a 73 year old female presenting for preoperative H&P. History includes current smoker, ETOH abuse (4+ shots/day)., HTN and AAA. CTA displays AAA measures 5.8cm and left SRIDHAR measures 4.1cm. Denies acute abdominal/back pain; does have chronic LBP - relieved with 10s unit. Pt scheduled for open RP AAA repair with Dr. Lester. Latex allergy: No Contrast dye allergy: No Patient is on following blood thinners: continue ASA Pacemaker: No Does the patient accept blood products: Yes Tests: 05/05/24 ST and ECHO pending 04/03/24 CTA CAP 08/28/23 [facility] EMILIE PAST MEDICAL/SURGICAL/FAMILY/SOCIAL HISTORY PAST MEDICAL HISTORY Diagnosis Date Essential hypertension Psychiatric disorder depression PAST SURGICAL HISTORY Procedure Laterality Date REM LESION FACE,EAR,EYE 2.1-3 CM 03/03/08 EXCISION LESION FACE performed by [facility] YOUNGER at [facility] No family history on file. SOCIAL HISTORY Social History Tobacco Use Smoking status: Every Day Current packs/day: 0.50 Types: Cigarettes Smokeless tobacco: Never Substance Use Topics Alcohol use: Yes Comment: 2 drinks atleast daily Drug use: No MEDICATIONS/ALLERGIES Current Outpatient Medications Medication Sig Dispense Refill traZODone (DESYREL) 100 mg tablet amLODIPine (NORVASC) 10 mg tablet metoprolol tartrate, short acting, (LOPRESSOR) 50 mg tablet aspirin, enteric coated (ASPIRIN, ENTERIC COATED) 81 mg EC tablet Take 81 mg by mouth once daily. NAPROXEN SODIUM (ALEVE ORAL) Take by mouth as needed. No current facility-administered medications for this visit. ALLERGIES No Known Allergies REVIEW OF SYSTEMS Constitutional: No weight loss, malaise or fevers. Respiratory: Negative for cough, wheezing, or shortness of breath Cardiovascular: Negative for chest pain, leg swelling or palpitations Gatrointestinal: Negative for abdominal discomfort, blood in stools or black stools or change in bowel habits Genitourinary: No history of dysuria, frequency, or incontinence Hematology/Lymphatic: Negative for prolonged bleeding. bruising easily. Neurologic: No history of syncope, paralysis, seizures or tremors Integumentary: Negative for lesions and itching. Had rash to RLE and back - considered dermatitis vs. Scoriasis by local derm, currently treated with kenalog cream. PHYSICAL EXAM VITALS: BP 134/82 Pulse 75 Temp (Src) 97.3 (Oral) Resp 16 Ht 5' 6 (1.68m) Wt 163 lb 5.8 oz (74.1kg) SpO2 94% BMI 26.38 kg/(m^2). General: Alert and oriented Integumentary: Normal color, no rash, no lesions. Slight rash vs. Irritation to left groin. Slight rash to RLE and back. HEENT: EOM intact. Cardiovascular: Normal S1 & S2, Pulse regular. Lungs: Normal breath sounds, no wheezes or crackles. Abdomen:Soft, non-tender, no rigidity. Extremities: No deformity, no edema or tenderness, no joint swelling or clubbing. Neurological: Normal cognition and motor skills. Vascular: Radial Pulse Right: Normal - Left: Normal ASSESSMENT Charlie Estrada is a 73 year old female presenting for open RP AAA repair with Dr. Lester. PLAN/RECOMMENDATIONS Scheduled for open RP AAA repair with Dr. Lester on 05/27/24. Ready for surgery pending Labs, ECG, Anesthesia clearance. Rx diflucan and nystatin for left groin. Also advised to get OTC interdry sheets. Placed consult to derm regarding RLE/back rash. Encouraged smoking cessation and decreasing alcohol intake prior to surgery. Pre-op POC reviewed with patient who verbalized understanding/compliance. Medication list reviewed, updated, and verified with patient. Consent: Pending SIGNATURE: Kaye Case APRN.CNP PATIENT NAME: Charlie Estrada DATE: 05/05/24 TIME: 09 [facility]11-11-2024 History and physical note* Kaye Case APRN.CNP - 05/05/2024 9:00 AM EST VASCULAR SURGERY PREOPERATIVE H&P SERVICE DATE: 05/05/24 SERVICE TIME: 09 PRIMARY CARE PHYSICIAN: Jannet Dey MD REFERRING PROVIDER: Yobani Lester [address] [facility] [id number] Consult requested for an opinion regarding the evaluation and treatment of the above. My final impression and recommendations will be communicated back to the requesting physician by way of the shared medical record or letter via US mail. CHIEF COMPLAINT/HISTORY OF PRESENT ILLNESS: Chief Complaint: AAA History of Present Illness: Charlie Estrada is a 73 year old female presenting for preoperative H&P. History includes current smoker, ETOH abuse (4+ shots/day)., HTN and AAA. CTA displays AAA measures 5.8cm and left SRIDHAR measures 4.1cm. Denies acute abdominal/back pain; does have chronic LBP - relieved with 10s unit. Pt scheduled for open RP AAA repair with Dr. Lester. Latex allergy: No Contrast dye allergy: No Patient is on following blood thinners: continue ASA Pacemaker: No Does the patient accept blood products: Yes Tests: 05/05/24 ST and ECHO pending 04/03/24 CTA CAP 08/28/23 O[facility] EMILIE PAST MEDICAL/SURGICAL/FAMILY/SOCIAL HISTORY PAST MEDICAL HISTORY Diagnosis Date Essential hypertension Psychiatric disorder depression PAST SURGICAL HISTORY Procedure Laterality Date REM LESION FACE,EAR,EYE 2.1-3 CM 03/03/08 EXCISION LESION FACE performed by JONH YOUNGER at [facility] HX No family history on file. SOCIAL HISTORY Social History Tobacco Use Smoking status: Every Day Current packs/day: 0.50 Types: Cigarettes Smokeless tobacco: Never Substance Use Topics Alcohol use: Yes Comment: 2 drinks atleast daily Drug use: No MEDICATIONS/ALLERGIES Current Outpatient Medications Medication Sig Dispense Refill traZODone (DESYREL) 100 mg tablet amLODIPine (NORVASC) 10 mg tablet metoprolol tartrate, short acting, (LOPRESSOR) 50 mg tablet aspirin, enteric coated (ASPIRIN, ENTERIC COATED) 81 mg EC tablet Take 81 mg by mouth once daily. NAPROXEN SODIUM (ALEVE ORAL) Take by mouth as needed. No current facility-administered medications for this visit. ALLERGIES No Known Allergies REVIEW OF SYSTEMS Constitutional: No weight loss, malaise or fevers. Respiratory: Negative for cough, wheezing, or shortness of breath Cardiovascular: Negative for chest pain, leg swelling or palpitations Gatrointestinal: Negative for abdominal discomfort, blood in stools or black stools or change in bowel habits Genitourinary: No history of dysuria, frequency, or incontinence Hematology/Lymphatic: Negative for prolonged bleeding. bruising easily. Neurologic: No history of syncope, paralysis, seizures or tremors Integumentary: Negative for lesions and itching. Had rash to RLE and back - considered dermatitis vs. Scoriasis by local derm, currently treated with kenalog cream. PHYSICAL EXAM VITALS: BP 134/82 Pulse 75 Temp (Src) 97.3 (Oral) Resp 16 Ht 5' 6 (1.68m) Wt 163 lb 5.8 oz (74.1kg) SpO2 94% BMI 26.38 kg/(m^2). General: Alert and oriented Integumentary: Normal color, no rash, no lesions. Slight rash vs. Irritation to left groin. Slight rash to RLE and back. HEENT: EOM intact. Cardiovascular: Normal S1 & S2, Pulse regular. Lungs: Normal breath sounds, no wheezes or crackles. Abdomen:Soft, non-tender, no rigidity. Extremities: No deformity, no edema or tenderness, no joint swelling or clubbing. Neurological: Normal cognition and motor skills. Vascular: Radial Pulse Right: Normal - Left: Normal ASSESSMENT Charlie Estrada is a 73 year old female presenting for open RP AAA repair with Dr. Lester. PLAN/RECOMMENDATIONS Scheduled for open RP AAA repair with Dr. Lester on 05/27/24. Ready for surgery pending Labs, ECG, Anesthesia clearance. Rx diflucan and nystatin for left groin. Also advised to get OTC interdry sheets. Placed consult to derm regarding RLE/back rash. Encouraged smoking cessation and decreasing alcohol intake prior to surgery. Pre-op POC reviewed with patient who verbalized understanding/compliance. Medication list reviewed, updated, and verified with patient. Consent: Pending SIGNATURE: Kaye Case APRN.CNP PATIENT NAME: Charlie Estrada DATE: 05/05/24 TIME: 947 documented in this encounterAdams [facility] Hospital11-11-2024 History of Present illness Narrative* Kaye Case APRN.CNP - 05/05/2024 9:00 AM EST AMBULATORY PATIENT EDUCATION READINESS TO LEARN COGNITIVE ABILITY: Alert and oriented MOTIVATION TO LEARN: Eager FAMILY SUPPORT: High - Very involved in pt care INSTRUCTION PROVIDED TO: Patient and family member PATIENT LEARNS BEST BY: Individual Instruction Written Instruction - Hand-outs Verbal Instruction FACTORS AFFECTING LEARNING: None PHYSICAL LIMITATIONS AFFECTING LEARNING: None LEARNING RESPONSE METHOD OF INSTRUCTION: Individual instruction Written instruction/Handouts Verbal instruction PATIENT / FAMILY RESPONSE: Verbalizes understanding of: PRE-OPERATIVE INSTRUCTIONS-Correct action to take to follow pre-operative instructions FOLLOW-UP PLAN: Office contact information provided. SUPPLEMENTAL MATERIAL: Vascular Surgery Preparation Handout, Bactroban Nasal Ointment Instructions REFERRAL (RECOMMENDATION): None Electronically Signed By: Kaye Case APRN.CNP In Department: VASCULAR SURG DEPT documented in this encounterAdams [facility] Hospital11-11-2024 NoteGrand [facility]11-11-2024 History of Present illness Narrative* Lee Sevilla DO - 05/05/2024 8:00 AM EST Images from the original note were not included. Cardiothoracic Anesthesiology Preoperative Assessment Service Date: 05/05/2024 Service Time: 7:31 AM Primary Care Physician: Jannet Dey MD Subjective Patient Entered Data: Scheduled procedure: DIRECT REPAIR OF SUPRARENAL ABDOMINAL AORTIC ANEURYSM Surgeon: Yobani Lester Scheduled date: 05/27/2024 HPI: 73 year old female with PMH notable for: - PAST MEDICAL HISTORY No date: Essential hypertension No date: Psychiatric disorder Comment: depression Pt presents for preoperative evaluation prior to repair of suprarenal AAA. Pt is currently asymptomatic without any chest pain, shortness of breath, recent weight loss, fever, chills, nausea/vomiting, diarrhea. Patient instructed to: - Follow surgical instruction regarding warfarin/ASA therapy - Continue: metoprolol - Hold: amlodipine, naproxen Pt denies any problems with prior anesthetics. We additionally discussed the anesthetic plan, what to expect, and any questions or concerns the patient may have had. Review no known heparin intolerance anticoagulant/antiplatelet medication(s) - Patient is taking anticoagulant and/or antiplatelet medication no non-cardiac IEDs present no known esophageal disorders blood transfusion consented - The blood products consent form completed. No resulted type & screen to review COVID-19 Immunization Status Overdue - Covid-19 Vaccine () Overdue since 02/24/2024 02/03/2021 Outside Immunization: COVID-19, mRNA, LNP-S, PF, 100 mcg/0.5mL dose or 50 mcg/0.25mL dose The patient has the following: ACTIVE PROBLEM LIST Iliac Aneurysm (Hcc) Elevated Hemoglobin (Hcc) PAST MEDICAL HISTORY Diagnosis Date Essential hypertension Psychiatric disorder depression PAST SURGICAL HISTORY Procedure Laterality Date REM LESION FACE,EAR,EYE 2.1-3 CM 03/03/08 EXCISION LESION FACE performed by [facility]NG[facility] at [facility] No family history on file. Social History Tobacco Use Smoking status: Every Day Current packs/day: 0.50 Types: Cigarettes Smokeless tobacco: Never Substance Use Topics Alcohol use: Yes Comment: 2 drinks atleast daily Drug use: No Prior to Admission medications as of 04/03/24 1000 Medication Sig Last Dose Taking amLODIPine (NORVASC) 10 mg tablet metoprolol tartrate, short acting, (LOPRESSOR) 50 mg tablet aspirin, enteric coated (ASPIRIN, ENTERIC COATED) 81 mg EC tablet Take 81 mg by mouth once daily. cephALEXin (KEFLEX) 500 mg capsule every 12 hours. NAPROXEN SODIUM (ALEVE ORAL) Take by mouth as needed. No medication comments found. ALLERGIES No Known Allergies Objective Pain Assessment: Vitals: There were no vitals taken for this visit. Diagnostic tests reviewed for today's visit: Lab Value Units Date High Low HB No results within date range. HCT No results within date range. WBC No results within date range. PLT No results within date range. NA No results within date range. K No results within date range. GLUC No results within date range. BUN No results within date range. CREAT 0.90 mg/dL 04/03/2024 1.4 0.7 PTSEC No results within date range. INR No results within date range. APTT No results within date range. ALT No results within date range. AST No results within date range. TBILI No results within date range. TSH No results within date range. Lab Value Units Date High Low HCGQT No results within date range. UHCG No results within date range. HCG, BODY* No results within date range. Lab Value Units Date High Low ABORHD No results within date range. ABSCREEN No results within date range. No results found for: HBA1C No results found for this or any previous visit (from the past 8760 hour(s)). Assessment No problem-specific Assessment & Plan notes found for this encounter. ANESTHESIA FINDINGS: Intubation History: No history of difficult intubation. No abnormal airway history. No prior intubation Patient is not a candidate for regional or neuraxial anesthesia Significant Anesthesia Considerations: none Airway History: No history of difficult airway No abnormal airway history No prior intubation Prepared for Surgery: optimally prepared for surgery, pending day of surgery. The Following Tests/Procedures Have Been Initiated: No orders of the defined types were placed in this encounter. ASA Class: 4 Planned Anesthetic: general I - PHYSICAL EVALUATION AIRWAY Patient intubated: No. Tracheostomy tube not present Mallampati: IV. TM distance: >3 FB. Neck ROM: full ROM without neurological symptoms. Mouth opening: adequate. Short neck: yes. Thick neck: yes DENTAL Dental findings: teeth intact. II - ANESTHESIA PLAN ASA Score: 4 Anesthetic Plan: general Airway type: ETT Beta Liila Monitoring Plan Post Procedure Analgesic Plan Informed Consent Anesthetic risks, benefits, alternatives, personnel and consent discussed: yes. Patient / Responsible Democrat agrees to proceed: yes Patient / Surrogate agrees to blood products: Yes Discussed the possibility of lip / dental damage: yes Instructions Given to Patient: Instructions located in the after visit summary. Patient given verbal and written preop instructions and voices comprehension and compliance. Signature: Lee Sevilla DO Patient Name: Charlie Estrada Date: May 05, 2024 Time: 7:31 AM Pager/Contact #: documented in this encounterAdams County Hospital11-11-2024 NoteGrand [facility]11-06-2024 Instructions* Patient Instructions* Kaye Case APRN.CNP - 04/30/2024 3:22 PM EST VASCULAR SURGERY PREOPERATIVE INSTRUCTIONS The following instructions were given in oral and written form: Do not take NSAIDs such as ibuprofen (Motrin, Advil) and naproxen (Aleve), or Excedrin for a week before surgery. It is OK to take Tylenol. Continue taking your Aspirin Hibiclens (body wash) and Listerine (mouth wash) were given as well as instructions on how to use them. Do not eat or drink after midnight on the night before surgery. On the morning of surgery- take your morning medications with small sips of water. Follow anesthesia instructions regarding your other medications before surgery and on the morning of surgery. Bring your rescue inhalers with you, if applicable. Bring your CPAP/BiPAP machine with mask and tubing, if applicable. You will be called and notified if you are MRSA positive and need to fill a prescription. If positive, you need to fill the prescription and begin using it on the day before surgery. Please call us and inform us about any significant health updates or new medications added to your regimen before surgery. Signed: Kaye Case APRN.CNP documented in this encounterAdams [facility]10-10-2024 History of Present illness Narrative* Yobani Lester MD - 04/03/2024 10:15 AM EDT Images from the original note were not included. [facility] V[facility] [place] DEPARTMENT OF VASCULAR SURGERY OUTPATIENT VISIT DATE April 03, 2024 OUTPATIENT VISIT TYPE ESTABLISHED SERVICE DATE: 04/03/2024 SERVICE TIME: 9:50 AM PRIMARY CARE PHYSICIAN: Jannet Dey MD HISTORY OF PRESENT ILLNESS: Ms. Estrada is a 73 year old female who presents today for a vascular surgery 6 month follow-up visit for type IV thoracoabdominal aneurysm surveillance, found incidentally on CT and previously monitored by Dr. Odom. Today Ms. Estrada presents to clinic with her granddaughter and reports feeling well despite movingback pain. Able to perform daily activities, denies SOB, chest pain, urinary or bowel changes. She endorses smoking and drinking 4+ shots a day. PAST MEDICAL HISTORY Diagnosis Date Essential hypertension Psychiatric disorder depression PAST SURGICAL HISTORY Procedure Laterality Date REM LESION FACE,EAR,EYE 2.1-3 CM 03/03/08 EXCISION LESION FACE performed by JONH YOUNGER at [facility] TONSILLECTOMY HX SOCIAL HISTORY Social History Tobacco Use Smoking status: Every Day Current packs/day: 0.50 Types: Cigarettes Smokeless tobacco: Never Substance Use Topics Alcohol use: Yes Comment: 2 drinks atleast daily Drug use: No MEDICATIONS: amLODIPine (NORVASC) 10 mg tablet metoprolol tartrate, short acting, (LOPRESSOR) 50 mg tablet aspirin, enteric coated (ASPIRIN, ENTERIC COATED) 81 mg EC tablet Take 81 mg by mouth once daily. cephALEXin (KEFLEX) 500 mg capsule q 12 HR. (Patient not taking: Reported on 10/03/2023) NAPROXEN SODIUM (ALEVE ORAL) Take by mouth as needed. ALLERGIES: ALLERGIES No Known Allergies PHYSICAL EXAM: There were no vitals taken for this visit. General: Alert and oriented Integumentary: Normal color, no rash, no lesions. HEENT: EOM, pupils equal, round and reactive. Cardiovascular: Normal S1 & S2, no rubs, murmurs or gallops. No JVD., Pulse regular. Lungs: Normal breath sounds, no wheezes or crackles. Abdomen: Soft, non-tender, no rigidity. Extremities: No deformity, no edema or tenderness, no joint swelling or clubbing. Neurological: Normal cognition and motor skills. Vascular: Radial Pulse Right: Normal - Left: Normal Diagnostic tests reviewed for today's visit: Most recent imaging CTA C/A/P 04/03/24 IMPRESSION: Ms. Estrada is a 73 year old female with a type IV TAA, asymptomatic, which has grown in size sincelast visit. PLAN and RECOMMENDATIONS: Discussed with Ms. Estrada regarding surgical intervention which she is agreeable to. We will schedule her for pre-operative testing and plan for surgery in May. Recommended to cut back on smoking and drinking habits. Monet Mitchell Medical Student (MS4) SIGNATURE: Yobani Lester MD PATIENT NAME: Charlie Estrada DATE: April 03, 2024 TIME: 9:50 AM [facility] STAFF PHYSICIAN NOTE OF PERSONAL INVOLVEMENT IN CARE Patient is seen in consultation at the request of the above noted physician. Based on my evaluationshe is a high risk candidate for type 4 needs risk stratificaiton . PLAN DISCUSSED WITH: pt See problem list I have reviewed the documentation obtained and documented by the Medical student and I have personally performed a face to face assessment of the patient and have personally participated in the lizama components of the visit which includes medical decision making. and have reviewed and updated the problem list as appropriate. I have personally performed a face to face assessment of the patient and have personally participated in the lizama components. I have discussed the case and management of the patient's care. STAFF PHYSICIAN: Yobani Lester MD DATE of SERVICE: 04/07/2024 TIME of SERVICE: 11:05 AM documented in this encounterAdams [facility] Hospital10-10-[facility]24 [facility] History of Present illness Narrative* Serenity Rodarte RN - 04/03/2024 9:45 AM EDT Radiology Service Progress Note DATE OF SERVICE: April 03, 2024 TIME: 9:30 AM PATIENT WEIGHT: 164LBS PATIENT IDENTITY VERIFICATION COMPLETED USING TWO (2) STANDARD IDENTIFIERS: Name and Date of confirmed by patient verbally and Name and Date of confirmed by identification band. FALL SCREENING: Has the patient had 2 falls in the last year or 1 fall with injury or currently using an Ambulatory Assistive Device (Walker, Cane, Wheelchair, Crutches, etc.)? No PATIENT GENDER DATA: Female. status: : No status: NO. ALLERGIES: Reviewed and unchanged CONTRAST ALLERGY: No EXAM: CT -CONTRAST INDUCED NEPHROPATHY RISK FACTORS: Patient age > 60 years CREATININE: Creatinine (POCT) Date Value Ref Range Status 04/03/2024 0.90 0.7 - 1.4 mg/dL Final eGFR (POCT) Date Value Ref Range Status 04/03/2024 >60 mL/min/1.73 m2 Final P.O.C.T. RESULTS: POC done: Yes, See Lab Tab April 03, 2024 TREATMENT: No Hydration needed. IV SITE: Ambulatory: A peripheral IV was started in the Left antecubital site with a Angio cath: 20gauge. and A Saline lock was inserted per protocol IV SITE APPEARANCE: Clean,Dry and Intact SIGNATURE: Serenity Rodarte RN PATIENT NAME: Charlie Estrada DATE: April 03, 2024 TIME: 9:30 AM * Hannah Felder RT(R) - 04/03/2024 9:45 AM EDT Radiology Service Progress Note PATIENT NAME: Charlie Estrada DATE OF SERVICE: April 03, 2024 TIME: 9:43 AM PATIENT IDENTITY VERIFICATION COMPLETED USING TWO (2) IDENTIFIERS: Name and Date of confirmedby patient verbally and Name and Date of confirmed by identification band. FALL SCREENING: Has the patient had 2 falls in the last year or 1 fall with injury or currently using an Ambulatory Assistive Device (Walker, Cane, Wheelchair, Crutches, etc.)? No PATIENT GENDER DATA: Female. status: : No status: NO. PATIENT RELEVANT IMPLANT DATA REVIEWED: Yes PATIENT PRESENTS WITH AN IMPLANTABLE OR ATTACHED BOBBIN DUMPER: No RADIOLOGY DEPARTMENT: CT; Exam(s) Completed: CTA Cardiac PERIPHERAL IV DATA: Site assessment: Clean,Dry and Intact, Site disposition Discontinued SIGNED BY: RT Ruthann(R) April 03, 2024 9:43 AM documented in this encounterAdams County Hospital10-10-2024 NoteGrand [facility]10-10-2024 [facility]Cle[facility] History of Present illness Narrative* Yobani Lester MD - 10/03/2023 11:23 AM EDT Images from the original note were not included. Heart , V[facility] [place] DEPARTMENT OF VASCULAR SURGERY OUTPATIENT VISIT DATE October 03, 2023 OUTPATIENT VISIT TYPE CONSULTATION SERVICE DATE: 10/03/2023 SERVICE TIME: 11:26 AM PRIMARY CARE PHYSICIAN: Jannet Dey MD REFERRING PROVIDER: Ilia Odom [address] [facility] [address] [facility] [id number] Consult requested for an opinion regarding the evaluation and treatment of the above. My final impression and recommendations will be communicated back to the requesting physician by way of the shared medical record or letter via [place] mail. CHIEF COMPLAINT: Aortic anuerysm HISTORY OF PRESENT ILLNESS: Vascular consultation at the request of Dr. Ilia Odom. A copy of this consultation note will be provided to the requesting physician by way of shared Medical record or letter to requesting physician via US mail. Ms. Estrada is a 72 year old female who is seen today for aortic aneurysm. It was discovered incidentally on CT scan about 4 yrs ago and has been monitored by Dr. Odom. She denies abdominal, does have upper back pain that began recently. She believes that her mother has an abdominal aneurysm. She smokes <1ppd for 55 years. She uses alcohol daily. PAST MEDICAL HISTORY Diagnosis Date Essential hypertension Psychiatric disorder depression PAST SURGICAL HISTORY Procedure Laterality Date REM LESION FACE,EAR,EYE 2.1-3 CM 03/03/08 EXCISION LESION FACE performed by JONH YOUNGER at [facility] TONSILLECTOMY HX SOCIAL HISTORY: Social History Tobacco Use Smoking status: Every Day Packs/day: .5 Types: Cigarettes Smokeless tobacco: Never Substance Use Topics Alcohol use: Yes Comment: 2 drinks atleast daily Drug use: No No family history on file. MEDICATIONS: amLODIPine (NORVASC) 10 mg tablet metoprolol tartrate, short acting, (LOPRESSOR) 50 mg tablet aspirin, enteric coated (ASPIRIN, ENTERIC COATED) 81 mg EC tablet Take 81 mg by mouth once daily. NAPROXEN SODIUM (ALEVE ORAL) Take by mouth as needed. cephALEXin (KEFLEX) 500 mg capsule q 12 HR. (Patient not taking: Reported on 10/03/2023) ALLERGIES: ALLERGIES No Known Allergies REVIEW OF SYSTEM: Constitutional: No weight loss, malaise or fevers. HEENT: Negative for frequent or significant headaches Respiratory: Negative for cough, wheezing, or shortness of breath Cardiovascular: Negative for chest pain, leg swelling or palpitations Gatrointestinal: Negative for abdominal discomfort, blood in stools or black stools or change in bowel habits Genitourinary: No history of dysuria, frequency, or incontinence Musculoskeletal: + upper back pain Endocrine: Negative for cold or heat intolerance, polyuria, polydipsia and goiter Hematology/Lymphatic: Negative for prolonged bleeding, bruising easily or swollen nodes Neurologic: No history or headaches, syncope, paralysis, seizures or tremors Integumentary: Negative for lesions, rash, and itching. PHYSICAL EXAM: VITALS: BP 118/75 Pulse 60 Temp (Src) 97.5 (Oral) Resp 18 Ht 5' 6 (1.68m) Wt 167 lb 14.4oz (76.2kg) SpO2 94% BMI 27.11 kg/(m^2). General: Alert and oriented, No acute distress Integumentary: Normal color, no rash, no lesions. HEENT: EOM, pupils equal, round and reactive. Cardiovascular: Pulse regular. Lungs: good inspiratory effort Abdomen: Soft, non-tender, no rigidity. Extremities: No deformity, no edema or tenderness, no joint swelling or clubbing. Neurological: Normal cognition and motor skills. Vascular: 2+ R DP/PT, 2+ L PT, 2+ radials, non pulastile mass behind knees Diagnostic tests reviewed for today's visit: CTA with Type IV thoracoabdominal aneurysm with maximum diameter 5.4cm at infrarenal level, 3.3cm at level of the diaphragm. IMPRESSION: Ms. Estrada is a 72 year old female with Type IV TAA, asymptomatic. PLAN and RECOMMENDATIONS: F/u 6 months with cta cap SIGNATURE: Yobani Lester MD PATIENT NAME: Charlie Estrada DATE: October 03, 2023 TIME: 11:26 AM [facility] STAFF PHYSICIAN NOTE OF PERSONAL INVOLVEMENT IN CARE Patient is seen in consultation at the request of the above noted physician. Based on my evaluationshe does not require intervention for at this point for 5.4 cm type 4. Would surveill to at least 5.5/6.0 cm. PLAN DISCUSSED WITH: pt See problem list I have reviewed the documentation obtained and documented by the Resident and I have personally performed a face to face assessment of the patient and have personally participated in the lizama components of the visit which includes medical decision making. and have reviewed and updated the problem list as appropriate. I have personally performed a face to face assessment of the patient and have personally participated in the lizama components. I have discussed the case and management of the patient's care. STAFF PHYSICIAN: Yobani Lester MD DATE of SERVICE: 10/03/2023 TIME of SERVICE: 12:11 PM documented in this encounterAdams County Hospital05-03-[address] Barillas [facility] October 25, 2022 5:36am Note Date/Time October 25, 2022 1:05am [facility] Medical Records Department [address] [place] [address] Emergency Department Summary 10/25/22 MR#: [id number] Acct: [id number] Name: CHARLIE ESTRADA Rep #:[id number] : 1950 71 From: Gurmeet Barillas MD PCP: Dr. Jannet Dey MD Status:REG ER Location: ED HPI History of Present Illness Chief Complaint: Back Informant: patient Narrative Narrative: Patient presents with upper back and neck pain that is severe. It hurts to moveand so she feels like she cannot move her head at all because of the pain. Any movement hurts. This has been gradually progressive for the past 4 weeks or so. She denies any focal neurologic symptoms in her arms, legs, vision, speech, swallowing. She states this started with shingles that she had in her right upper back/neck, she points to the trapezius area on top of her shoulder. She states it got better and then she broke out with a different rash all over her entire back. She states that was 1 or 2 weeks ago, she had a skin biopsy of it and does not know the results yet, and was put on some type of cream, she does not know what it was or what type of medication it was, but now that rash is allgone. At some point during all of this, she developed all of this pain in her upper back and neck, and it is now severe to the point where she cannot move or lie down because of having pain. She has a headache, but she states that basically just started today. No nausea or vomiting, no vision changes or photophobia. No fevers or chills. No confusion. No falls or injury. [facility] Medical History AAA (abdominal aortic aneurysm) Breast lump Contact with and (suspected) exposure to other viral communicable diseases COVID-19 Elevated hemoglobin Elevated MCV Enlarged thyroid gland Hay fever Hearing problem Hemorrhoids HTN (hypertension) Hypokalemia Knee pain, chronic Rash Uncontrolled hypertension Home Medications cholecalciferol (vitamin D3) 25 mcg (1,000 unit) capsule 25 mcg PO DAILY 08/11/21 [History Last Taken Unknown] aspirin 81 mg tablet,delayed release 81 mg PO DAILY 10/31/21 [History Last Taken Unknown] amlodipine 10 mg tablet 10 mg PO DAILY #90 tabs 01/04/22 [Rx Last Taken Unknown] metoprolol tartrate 50 mg tablet 50 mg PO DAILY #90 tabs 10/17/22 [Rx Last Taken Unknown] orphenadrine citrate 100 mg tablet,extended release 100 mg PO BID PRN muscle spasm/pain #14 tabs 10/25/22 [Rx Last Taken Unknown] oxycodone-acetaminophen 5 mg-325 mg tablet 1 tab PO Q6H PRN PRN Pain 3 days #12 TABLETS 10/25/22 [Rx Last Taken Unknown] Allergy/AdvReac Type Severity Reaction Status Date / Time NSAIDS (Non-Steroidal AdvReac Nausea Verified 10/25/22 00:34 Anti-Inflamma Family History Other Anxiety with depression Arthritis Asthma Diabetes Hyperlipemia Hypertension Social History Smoking Status: Light Smoker (<10/day) alcohol intake: current alcohol intake frequency: a few times a week Alcohol type: hard liquor substance use type: does not use ROS ROS ED Constitutional Constitutional ED: Denies chills or fever(s) Eyes Eyes: Denies change in vision or diplopia ENT ENT ED: Denies rhinorrhea or sore throat Cardiovascular Cardiovascular: Denies chest pain or palpitations Respiratory/Chest Respiratory/Chest: Denies cough or dyspnea Gastrointestinal Gastrointestinal: Denies abdominal pain, diarrhea, nausea or vomiting Genitourinary Genitourinary ED: Denies dysuria or hematuria Musculoskeletal Musculoskeletal: Reports as per HPI, back pain and neck pain; Denies extremity pain Integumentary Denies abscess or rash Neurologic Neurologic: Reports headache(s) and other Details: States she feels a little weak in her legs, but nothing focal neurologically. No bowel or bladder dysfunction symptoms. ; Denies paresthesias or weakness Psychiatric Psychiatric: Denies depression or suicidal thoughts EXAM Physical Exam Const Vital Signs: 10/25/22 00:31 10/25/22 03:25 10/25/22 05:21 Temperature 96.3 F L Temperature Source Temporal Pulse Rate 82 Respiratory Rate 18 18 18 Blood Pressure 140/90 H 138/68 H 137/70 H Blood Pressure Mean 106 91 92 Pulse Ox 93 94 95 Oxygen Delivery Method Room Air Positive well nourished and well developed General Appearance ED: well developed and NAD HEENT Reports moist mucous membranes normocephalic and atraumatic Eyes PERRL and EOMs intact bilaterally Neck no lymphadenopathy Neck Narrative: Diffuse posterior neck tenderness, paraspinal bilaterally and into trapezius bilaterally. Normal inspection. No bony tenderness or step-offs or deformities. Very limited range of motion does not want to move, she is able toflex her head down, but not bringing her chin all the way to the chest. She is able to extend some as well without severe discomfort. General: tenderness Chest Wall inspection of chest normal Resp normal respiratory effort and clear to auscultation bilaterally Cardio regular rate, regular rhythm and no murmurs GI non-tender and non-distended Auscultation: normoactive bowel sounds Palpation: soft Back/Spine no CVA tenderness Back/Spine Narrative: Diffuse bilateral superior aspect trapezius tenderness without any palpable subcutaneous or bony abnormality. General Back: other FROM but limited with regards to upper back due to pain Extremity normal to inspection General Extremety ED: Negative for edema, pulses abnormal or tenderness General Extremity: Negative for edema or pulses abnormal Neuro oriented x3, CN's II-XII intact bilaterally and no sensory deficits noted Sensorium / Orientation: awake and alert Motor Exam: strength 5/5 throughout Psych Psych Narrative: Anxious, angry, frustrated Skin no rashes or lesions noted and no wounds Skin Narrative: No skin lesions on the back MDM MDM MDM Narrative Medical decision making narrative: Differential here includes musculoskeletal etiologies, rheumatologic issues thatwould be difficult to rule in or out in the emergency department, deep space tissue infection, painful lymphadenopathy that I am not able to palpate due to obesity, mass, subarachnoid hemorrhage, and meningitis which is not an exhaustive list of possibilities. I advised the patient that I would recommend CT imaging, labs, and a lumbar puncture in order to evaluate for the dangerous possibilities in the differential here tonight. She has had no imaging before. She is amenable to some of this but does not want a spinal tap. I discussed thepossibility of herpes/VZV meningitis given her recent zoster. She understood and after the imaging of the head and neck soft tissues returned basically negative for any obvious explanation for the symptoms, she was amenable to the LP which was performed without complications, see the procedure note. Results of the CSF are noted. She does have a high protein level, but everything else that came back soon after the procedure is normal including the white blood count, there are only a few red cells (there was a very brief amountof blood when CSF was first obtained, but it cleared very quickly), glucose is normal, and the Gram stain is showing no organisms. This argues against acute infection, but since the opening pressure was high at 27 and the protein was very high at 70, I discussed with Dr. Hamilton with infectious disease for his recommendations. He said since there are no white blood cells in the sample, itwould be safe to assume there is no meningitis and to send her home with pain control. I advised close outpatient follow-up with her doctor, then I will sendher home with prescriptions for analgesics and muscle relaxer, both of which helped her symptoms quite a bit here. Lab Data Attestation: I reviewed the patient's lab results. Labs: Laboratory Results - last 24 hr 10/25/22 10/25/22 10/25/22 01:11 01:11 04:00 WBC 9.2 RBC 4.35 Hgb 15.4 H Hct 45.5 MCV 104.6 H MCH 35.4 H MCHC 33.8 RDW Std Deviation 57.6 H RDW Coeff of Silvia 14.7 H Plt Count 244 MPV 9.6 Immature Gran % (Auto) 1.500 H Neut % (Auto) 61.4 Lymph % (Auto) 26.6 [place] % (Auto) 6.3 Eos % (Auto) 3.5 Baso % (Auto) 0.7 Absolute Neuts (auto) 5.6 Absolute Lymphs (auto) 2.44 Nucleated RBC % 0 Sodium 140 Potassium 4.0 Chloride 108 H Carbon Dioxide 24.0 Anion Gap 8 BUN 22 H Creatinine 1.04 H Estim Creat Clear Calc 47.79 Est GFR (MDRD) Af Amer 67 Est GFR (MDRD) Non-Af 56 L BUN/Creatinine Ratio 21.2 H Glucose 89 Calcium 9.1 Fld Polynuclear WBCs # Fld Polynuclear WBCs % Fluid Mononuclear WBCs Fld Mononuclear WBCs % CSF Appearance CSF Color CSF WBC CSF RBC CSF Cell Count Tube # CSF Total Cell Counted CSF Comment CSF Glucose 61 CSF Total Protein 70.0 H 10/25/22 04:00 WBC RBC Hgb Hct MCV MCH MCHC RDW Std Deviation RDW Coeff of Silvia Plt Count MPV Immature Gran % (Auto) Neut % (Auto) Lymph % (Auto) [place] % (Auto) Eos % (Auto) Baso % (Auto) Absolute Neuts (auto) Absolute Lymphs (auto) Nucleated RBC % Sodium Potassium Chloride Carbon Dioxide Anion Gap BUN Creatinine Estim Creat Clear Calc Est GFR (MDRD) Af Amer Est GFR (MDRD) Non-Af BUN/Creatinine Ratio Glucose Calcium Fld Polynuclear WBCs # 0.001 Fld Polynuclear WBCs % 0.0 Fluid Mononuclear WBCs 0.000 Fld Mononuclear WBCs % 100.0 CSF Appearance CLEAR CSF Color COLORLESS CSF WBC 1 CSF RBC 12 H CSF Cell Count Tube # 4 CSF Total Cell Counted TNP CSF Comment May follow CSF Glucose CSF Total Protein Radiography Diagnostic Testing: Clinical Impression(s) from Imaging Studies Brain CT 10/25/22 00:56 IMPRESSION: No acute intracranial abnormality. Electronically Signed: Aaron Cai DO at 2:13 EDT , Soft Tissue Neck CT 10/25/22 00:56 IMPRESSION: 1. Unopacified proximal left vertebral artery with normal opacification from C5-C6 to the basilar artery. Findings may represent stenosis of the proximal left vertebral artery versus occlusion with reconstitution distally. 2. Atrophic changes of the bilateral proximal internal carotid arteries with less than 50% stenosis. No evidence of carotid artery dissection. 3. No acute soft tissue or vertebral abnormality. Electronically Signed: Aaron Cai DO at 2:25 EDT , My interpretation of the CT agrees with that of the radiologist. I reviewed theCT images. Procedures Lumbar Puncture Consent/Risks: Consent for procedure obtained and Risks/Benefits/Alternatives Discussed Lumbar Puncture Description: Right, Lateral, Sterile Prep, Betadine Prep, Sterile Technique and L4-5 (Tolerated well no complications, total of 4 cc plain1% lidocaine used for local anesthesia, neurologically intact after procedure.) Spinal Needle: 22ga w/ kit Sedation: n/a Opening Pressure: 27 cm H2O Fluid Color: clear & colorless Discharge Plan Triage Chief Complaint: Back ED Provider: Gurmeet Barillas Dx/Rx/DC Orders Clinical Impression: Acute neck pain, Headache Instructions: ED Neck Pain Prescriptions: New oxycodone-acetaminophen [oxycodone-acetaminophen] 5-325 mg tablet 1 tab PO Q6H PRN PRN (Reason: Pain) 3 Days Qty: 12 0RF orphenadrine citrate 100 mg tablet extended release 100 mg PO BID PRN (Reason: muscle spasm/pain) Qty: 14 0RF No Action aspirin 81 mg tablet,delayed release (DR/EC) 81 mg PO DAILY cholecalciferol (vitamin D3) 25 mcg (1,000 unit) capsule 25 mcg PO DAILY amlodipine 10 mg tablet 10 mg PO DAILY Qty: 90 3RF metoprolol tartrate 50 mg tablet 50 mg PO DAILY Qty: 90 3RF Primary Care Provider: Jannet Dey Referrals: Jannet Dey MD [Primary Care Provider] - 5-7 Days Disposition Disposition: Home, Self Care What to do if you have Problems For any increased pain, shortness of breath, bleeding, nausea or vomiting, chestpain, or any unexpected problems, contact your Primary Care Provider. Call [facility] ([phone]) or report to the closest Emergency Room. Call 911 if necessary. 10/25/22 0536 <Electronically signed by Gurmeet Barillas MD> Cosigner Signature (if applicable): CC: Dr. Jannet Dey MD ~ Signed [facility] Work Phone: Evaluation note* Diagnosis Onset Date Resolution Status Contact with and (suspected) exposure to other viral communicable diseases acute COVID-19 acute COVID-19 acute [facility] Work Phone: Evaluation note* Diagnosis Onset Date Resolution Status Herpes zoster acute Herpes zoster acute Irritant dermatitis acute [facility] Work Phone: Evaluation noteNo assessment information available [facility] Work Phone: evaluation note* Diagnosis Abdominal aortic aneurysm (AAA) without rupture, unspecified part (HCC)- Primary documented in this encounter [facility] note* Diagnosis History of thoracoabdominal aortic aneurysm (TAAA)- Primary 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 Elevated hemoglobin (HCC) Other hemoglobinopathies documented in this encounter [facility] note* Diagnosis History of thoracoabdominal aortic aneurysm (TAAA)- Primary 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 documented in this encounter [facility] note* Diagnosis 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 documented in this encounter [facility] note* Diagnosis 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)- Primary documented in this encounter [facility] note* Diagnosis 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)- Primary Encounter for screening for cardiovascular disorders Screening for other and unspecified cardiovascular conditions Preop testing Preoperative examination, unspecified documented in this encounter [facility] note* Diagnosis Encounter for preoperative anesthesiology assessment for vascular surgery- Primary 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) Encounter for screening for cardiovascular disorders Screening for other and unspecified cardiovascular conditions Preop testing Preoperative examination, unspecified documented in this encounter [facility] note* Diagnosis Pre-op exam- Primary Preoperative examination, unspecified Pre-op testing Preoperative examination, unspecified 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 Rash Rash and other nonspecific skin eruption Aspirin long-term use Encounter for long-term (current) use of aspirin Tobacco abuse Tobacco use disorder Alcohol abuse Alcohol abuse, unspecified 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) Encounter for screening for cardiovascular disorders Screening for other and unspecified cardiovascular conditions Preop testing Preoperative examination, unspecified [facility] Diagnosis 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) Encounter for screening for cardiovascular disorders Screening for other and unspecified cardiovascular conditions Preop testing Preoperative examination, unspecified [facility] Diagnosis 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) Encounter for screening for cardiovascular disorders Screening for other and unspecified cardiovascular conditions Preop testing Preoperative examination, unspecified 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) Encounter for screening for cardiovascular disorders Screening for other and unspecified cardiovascular conditions Preop testing Preoperative examination, unspecified [facility] Diagnosis 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)- Primary Encounter for post surgical wound check [facility] (current) use of aspirin [facility] Diagnosis Abdominal aortic aneurysm (AAA) without rupture, unspecified part- Primary [facility] Author Yang Smiley [facility] Note Date/Time September 06, 2024 4:0 5pm [facility] Medical Records Department [address] [place] [id number] History & Physical Exam 09/06/24 1601 MR#: [id number] Acct: [id number] Name: CHARLIE ESTRADA Doug Rep #:[id number] : 1950 73 From: Yang Smiley MD PCP: Dr. Jannet Dey MD Status:[facility] Location: [facility] HPI - General General Date of Admission: 09/06/24 Date of Service: 09/06/24 Chief Complaint: Right lower quadrant abdominal pain/appendicitis HPI Narrative CHARLIE ESTRADA, is a 73 F who presented to the emergency department at [facility] earlier today with right-sided abdominal pain has been present for a couple of days. She states that it has been getting steadily worse. She statesthat this pain started as a generalized pain which then migrated to the right lower quadrant. She has had some nausea and decreased appetite. No vomiting. She denies any fevers or chills. She did have a previous AAA repair in May2024. This was through a left sided retroperitoneal approach. While seen in the emergency room, she underwent blood work which showed a normal white blood cell count however CT scan showed moderate appendicitis. General surgery was contacted and I recommended laparoscopic appendectomy. [facility] Medical History Pleural effusion on left Atelectasis of left lung Postoperative urinary retention Situational insomnia Chronic anxiety Preop exam for internal medicine Acute bronchitis, unspecified COVID-19 Contact with and (suspected) exposure to other viral communicable diseases Elevated MCV Elevated hemoglobin Hypokalemia Enlarged thyroid gland Uncontrolled hypertension Breast lump Hearing problem AAA (abdominal aortic aneurysm) Rash Knee pain, chronic Hay fever Hemorrhoids HTN (hypertension) Home Medications ?Medication ?Instructions ?Recorded ?Last Taken ?Type aspirin 81 mg tablet,delayed 81 mg PO QDAY 07/28/24 Un known History release (Adult Low Dose Aspirin) metoprolol tartrate 50 mg tablet 25 mg (1/2 x 50 mg) P O DAILY #90 07/28/24 Unknown Rx tabs Allergy/AdvReac Type Severity Reaction Status Date / Time NSAIDS (Non-Steroidal AdvReac Nausea Verified 09/06/24 11:32 Anti-Inflamma Family History Other Anxiety with depression Arthritis Asthma Diabetes Hyperlipemia Hypertension Surgical History Status post AAA (abdominal aortic aneurysm) repair History of AAA (abdominal aortic aneurysm) repair Cataract fragments in eye following surgery Social History Smoking Status: Current every day smoker tobacco type: cigarettes alcohol intake: current alcohol intake frequency: holidays/special occasions only substance use type: does not use Vital Signs Vital Signs Vital Signs: 09/06/24 11:29 09/06/24 12:26 09/06/24 12:26 Temperature 97.4 F L Temperature Source Oral Pulse Rate 81 Respiratory Rate 16 Blood Pressure 158/86 H Blood Pressure Mean 110 Pulse Ox 95 83 91 Oxygen Delivery Method Room Air Room Air Nasal Cannula Oxygen Flow Rate (L/min) 2 09/06/24 14:00 09/06/24 14:27 Temperature Temperature Source Pulse Rate 72 Respiratory Rate 22 H Blood Pressure 163/70 H Blood Pressure Mean 101 Pulse Ox 96 95 Oxygen Delivery Method Room Air Nasal Cannula Oxygen Flow Rate (L/min) 2 Weight Weight: 150 lb Body Mass Index (BMI) 24.2 Physical Exam Narrative She is alert and oriented x 3. She is in no acute distress. Head is normocephalic and atraumatic. Pupils are equal round and reactive to light. Abdomen is soft and nondistended. She does have moderate right lower quadrant tenderness to palpation. No rebound or guarding. Results Lab / Micro Data 09/06/24 11:49 09/06/24 11:49 Labs: Laboratory Results - last 24 hr 09/06/24 11:49: WBC 8.7, RBC 4.78, Hgb 15.3 H, Hct 45.9, MCV 96.0, MCH 32.0, MCHC 33.3, RDW Std Deviation 56.1 H, RDW Coeff of Silvia 16.6 H, Plt Count 185, MPV9.4, Immature Gran % (Auto) 0.500, Neut % (Auto) 83.5 H, Lymph % (Auto) 7.7 L, [place] % (Auto) 5.4, Eos % (Auto) 2.4, Baso % (Auto) 0.5, Absolute Neuts (auto) 7.2, Absolute Lymphs (auto) 0.67 L, Nucleated RBC % 0, Sodium 140, Potassium 3.4, Chloride 102, Carbon Dioxide 24.3, Anion Gap 13, BUN 12, Creatinine 0.81, Estim Creat Clear Calc 59.64, Est GFR (MDRD) Non-Af 78, BUN/Creatinine Ratio 15.0, Glucose 95, Calcium 9.1, Total Bilirubin 1.04, AST 15, ALT < 5, Alkaline Phosphatase 137 H, Total Protein 6.8, Albumin 3.8, Globulin 3.0, Albumin/Globulin Ratio 1.3, Lipase 86 H 03/15/25 14:13: Urine Color Yellow, Urine Clarity Sl. Cloudy, Urine pH 6.0, Ur Specific [place] 1.015, Urine Protein 30 H, Urine Glucose (UA) Normal, Urine Ketones Negative, Urine Occult Blood 25 H, Urine Nitrite Positive H, Urine Bilirubin Negative, Urine Urobilinogen 1 H, Ur Leukocyte Esterase 500 H, Urine RBC 0-5 SEEN, Urine WBC 50-100 SEEN, Ur Squamous Epith Cells 0-5 SEEN, Urine Bacteria 4+, Urine Mucus 0 SEEN Imaging Radiology Impression Abdomen/Pelvis CT 09/06/24 12:12 IMPRESSION: Moderate acute uncomplicated appendicitis as detailed above. Reading [facility] Assessment & Plan Assessment/Plan (1) Acute appendicitis: PLAN: Plan The patient is a 73-year-old female with acute appendicitis. I have recommendeda laparoscopic appendectomy as treatment. We discussed the details of the planned procedure as well as risks benefits and alternatives. She wishes to proceed. This will begin shortly Charges/Coding Visit Charges Inpatient E&M: 02152 Init Hosp L3 09/06/24 1605 <Electronically signed by Yang Smiley MD> Cosigner Signature (if applicable): CC: Dr. Jannet Dey MD; Dr. Yang Smiley MD~ Signed [facility] Work Phone: Hospital Discharge instructions Additional Instructions Take all of the antibiotics. Follow-up with your primary care doctor next week. You may need a repeat x-ray.[facility] Work Phone: Reason for referral (narrative)* Diagnostic Procedure Only (Routine) - New Request Specialty Diagnoses / Procedures Referred By Trey t Referred To Contact [facility] Diagnoses 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) Encounter for screening for cardiovascular disorders Preop testing Procedures NM CARDIAC PERF STRESS/PHARM MYOCARDIAL SPECT MULTIPLE STUDIES [place] [address] [place] [address] [facility] [address] [phone] Referral ID Status Reason Start Date Expiration Date Visits Requested Visits Authorized [id number] New Request Auto-Generat ed Referral 04/29/2024 05/29/2025 1 1 * Outpatient Procedure (Routine) - New Request Specialty Diagnoses / Procedures Referred By Trey t Referred To Contact [facility] [place] Diagnoses 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) Encounter for screening for cardiovascular disorders Preop testing Procedures ECG COMPLETE ECG ROUTINE ECG W/LEAST 12 LDS W/I&R [place] [address] [place] [address] [address] Referral ID Status Reason Start Date Expiration Date Visits Requested Visits Authorized [id number] New Request Auto-Generat ed Referral 04/29/2024 04/29/2025 1 1 * Outpatient Procedure (Routine) - New Request Specialty Diagnoses / Procedures Referred By Emperatrizac t Referred To Contact [facility] Diagnoses 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) Encounter for screening for cardiovascular disorders Preop testing Procedures ECHO ECHO TTHRC R-T 2D W/WOM-MODE COMPL SPEC&COLR D [place] [address] [phone] [address] [address] Referral ID Status Reason Start Date Expiration Date Visits Requested Visits Authorized [id number] New Request Auto-Generat ed Referral 04/29/2024 04/29/2025 1 1 [facility] (narrative)* Diagnostic Procedure Only (Routine) - Closed Specialty Diagnoses / Procedures Referred By Trey t Referred To Contact [facility] Diagnoses 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) Encounter for screening for cardiovascular disorders Preop testing Procedures NM CARDIAC PERF STRESS/PHARM MYOCARDIAL SPECT MULTIPLE STUDIES [address] [place] [address] Molecular [facility] Functional Imaging [address] [phone] Referral ID Status Reason Start Date Expiration Date V isits Requested Visits Authorized [id number] Closed Auto-Generate d Referral 04/29/2024 05/29/2025 1 1 [facility] for referral (narrative)No reason for referral [facility] Work Phone: Summary Purpose Family History No Family History Records Found Relationship Condition Age at Onset Recorded Date/T deepika Not Specified Anxiety with depression Unknown Diabetes mellitus Unknown Arthritis Unknown Hyperlipidemia Unknown Hypertension Unknown Asthma Unknown Advance Directives No Advanced Directives Records Found Advance Directive Response Recorded Date/ Time Living Will No July 04 1:29pm Power of Optometric Technologist No July 04, 2021 1:29pm Advance Directive Response Recorded Date/ Time Living Will No October 25, 2022 1: 14am Power of Optometric Technologist No October 25, 2022 1:14am Advance Directive Response Recorded Date/ Time Living Will No October 25, 2022 12 :14am Power of Optometric Technologist No October 25, 2022 12:14am Advance Directive Response Recorded Date/ Time Living Will Yes September 06, 2024 12:26pm Power of Optometric Technologist Yes September 06 12:26pm Name of Medical Power of Optometric Technologist granddaughter September 06, 2024 12:26pm Advance Directive Response Recorded Date/ Time Living Will Yes September 06, 2024 6:08pm Power of Optometric Technologist Yes September 06 6:08pm Name of Medical Power of Optometric Technologist granddaughter September 06, 2024 6:08pm Advance Directive Response Recorded Date/ Time Living Will Yes September 06, 2024 6:08pm Do you have a Healthcare Power of Optometric Technologist? Yes September 06, 2024 6:08pm Name of Medical Power of Optometric Technologist granddaughter September 06, 2024 6:08pm Advance Directive Response Recorded Date/ Time Living Will Yes September 06, 2024 6:08pm Do you have a Healthcare Pow er of Optometric Technologist? Yes September 06, 2024 6:08pm Name of Medical Power of Optometric Technologist granddaughter September 06, 2024 6:08pm Living Will Yes October 11, 2024 3:54am Do you have a Healthcare Pow er of Optometric Technologist? Yes October 11, 2024 3:54am Name of Medical Power of Optometric Technologist Rubi/Grand liriano October 11, 2024 3:54am Advance Directive Response Recorded Date/ Time Living Will Yes September 06, 2024 6:08pm Do you have a Healthcare Pow er of Optometric Technologist? Yes September 06, 2024 6:08pm Name of Medical Power of Optometric Technologist daughter September 06, 2024 6:08pm Living Will Yes October 11, 2024 6:49am Do you have a Healthcare Pow er of Optometric Technologist? Yes October 11, 2024 6:49am Name of Medical Power of Optometric Technologist Rubi/Grand liriano October 11, 2024 6:49am Advance Directive Response Recorded Date/ Time Living Will Yes September 06, 2024 6:08pm Do you have a Healthcare Pow er of Optometric Technologist? Yes September 06, 2024 6:08pm Name of Medical Power of Optometric Technologist leanneughter September 06, 2024 6:08pm Living Will Yes October 11, 2024 6:49am Do you have a Healthcare Pow er of Optometric Technologist? Yes October 11, 2024 6:49am Name of Medical Power of Optometric Technologist Rubi/Grand liriano October 11, 2024 6:49am Do you have a Healthcare Pow er of Optometric Technologist? Yes November 07, 2024 12:34pm Name of Medical Power of Optometric Technologist Rubi November 07, 2024 12:34pm Chief Complaint and Reason for Visit Chief Complaint COUGH/ CONGESTION/ C ONCERN FOR URI COVID POS 1WK AGO/NOT FEELING BETTER AAA Reason for Visit Contact with and (tejada spected) exposure to other viral communicable diseases COVID-19 COVID-19 Chief Complaint NECK PAIN/RASH AROUN D NECK POSSIBLE SHINGLES 2ND VISIT/SHINGLES BACK PAIN Reason for Visit Herpes zoster Herpes zoster Irritant dermatitis Chief Complaint CAROTID ARTERY STENO SIS Infrarenal abdominal aortic aneurysm, without rupt Chief Complaint Admit Date [facility] Discharge FU June 09, 2024 10:25am 1 Wk FU June 30, 2024 11 :11am left atelecatasis/ EORDERS June 30, 2024 12:32pm Pleural effusion, not elsewhere classifi ed July 17, 2024 1:53pm 1 M FU July 28, 2024 1 0:54am MARY September 03, 2024 1:5 1pm APPENDICITIS, ABD PAIN September 06, 2024 3:30pm Reason for Visit Admit Date AAA (abdominal aortic aneurysm) June 09, 2024 10:25am Atelectasis of left lung June 09, 2024 10:25am Postoperative urinary retention June 09, 2024 10:25am HTN (hypertension) June 09, 2024 10:25am AAA (abdominal aortic aneurysm) June 30, 2024 11:11am Atelectasis of left lung June 30 11:11am Postoperative urinary retention June 30, 2024 11:11am Status post AAA (abdominal aortic aneury sm) repair June 30, 2024 11:11am HTN (hypertension) June 30, 2024 11 :11am Atelectasis of left lung July 28, 025 10:54am Pleural effusion on left July 28, 025 10:54am Status post AAA (abdominal aortic aneury sm) repair July 28, 2024 10:54am HTN (hypertension) July 28, 2024 1 0:54am Acute appendicitis September 06, 2024 3:3 0pm Chief Complaint Admit Date [facility] Discharge FU June 09, 2024 10:25am 1 Wk FU June 30, 2024 11 :11am left atelecatasis/ EORDERS June 30, 2024 12:32pm Pleural effusion, not elsewhere classifi ed July 17, 2024 1:53pm 1 M FU July 28, 2024 1 0:54am MARY September 03, 2024 1:5 1pm APPENDICITIS, ABD PAIN September 06, 2024 4:01pm APPENDICITIS September 06, 2024 5:2 5pm APPENDICITIS September 07, 2024 12: 27pm Reason for Visit Admit Date AAA (abdominal aortic aneurysm) June 09, 2024 10:25am Atelectasis of left lung June 09, 2024 10:25am Postoperative urinary retention June 09, 2024 10:25am HTN (hypertension) June 09, 2024 10:25am AAA (abdominal aortic aneurysm) June 30, 2024 11:11am Atelectasis of left lung June 30 11:11am Postoperative urinary retention June 30, 2024 11:11am Status post AAA (abdominal aortic aneury sm) repair June 30, 2024 11:11am HTN (hypertension) June 30, 2024 11 :11am Atelectasis of left lung July 28 10:54am Pleural effusion on left July 28 025 10:54am Status post AAA (abdominal aortic aneury sm) repair July 28, 2024 10:54am HTN (hypertension) July 28, 2024 1 0:54am Acute appendicitis September 06, 2024 5:2 5pm Chief Complaint Admit Date [facility] Discharge FU June 09, 2024 10:25am 1 Wk FU June 30, 2024 11 :11am left atelecatasis/ EORDERS June 30, 2024 12:32pm Pleural effusion, not elsewhere classifi ed July 17, 2024 1:53pm 1 M FU July 28, 2024 1 0:54am MARY September 03, 2024 1:5 1pm APPENDICITIS, ABD PAIN September 06, 2024 4:01pm APPENDICITIS September 06, 2024 5:2 5pm APPENDICITIS September 07, 2024 12: 27pm [facility] Discharge FU September 10, 2024 1:1 4pm Reason for Visit Admit Date AAA (abdominal aortic aneurysm) June 09, 2024 10:25am Atelectasis of left lung June 09, 2024 10:25am Postoperative urinary retention June 09, 2024 10:25am HTN (hypertension) June 09, 2024 10:25am AAA (abdominal aortic aneurysm) June 30, 2024 11:11am Atelectasis of left lung June 30 11:11am Postoperative urinary retention June 30, 2024 11:11am Status post AAA (abdominal aortic aneury sm) repair June 30, 2024 11:11am HTN (hypertension) June 30, 2024 11 :11am Atelectasis of left lung July 28 10:54am Pleural effusion on left July 28 025 10:54am Status post AAA (abdominal aortic aneury sm) repair July 28, 2024 10:54am HTN (hypertension) July 28, 2024 1 0:54am Acute appendicitis September 06, 2024 5:2 5pm AAA (abdominal aortic aneurysm) September 102024 1:14pm Acute appendicitis September 10, 2024 1:1 4pm Atelectasis of left lung September 10 1:14pm Pleural effusion on left September 10 1:14pm Chief Complaint Admit Date 1 Wk June 30, 2024 11 :11am left atelecatasis/ EORDERS June 30, 2024 12:32pm Pleural effusion, not elsewhere classifi ed July 17, 2024 1:53pm 1 M FU July 28, 2024 1 0:54am MARY September 03, 2024 1:5 1pm APPENDICITIS, ABD PAIN September 06, 2024 4:01pm APPENDICITIS September 06, 2024 5:2 5pm APPENDICITIS September 07, 2024 12: 27pm [facility] Discharge FU September 10, 2024 1:1 4pm CAP W/COPD EXACERBATION & HYPOXIA October 11, 2024 5:39am Reason for Visit Admit Date AAA (abdominal aortic aneurysm) June 30, 2024 11:11am Atelectasis of left lung June 30 11:11am Postoperative urinary retention June 30, 2024 11:11am Status post AAA (abdominal aortic aneury sm) repair June 30, 2024 11:11am HTN (hypertension) June 30, 2024 11 :11am Atelectasis of left lung July 28, 025 10:54am Pleural effusion on left July 28 025 10:54am Status post AAA (abdominal aortic aneury sm) repair July 28, 2024 10:54am HTN (hypertension) July 28, 2024 1 0:54am Acute appendicitis September 06, 2024 5:2 5pm AAA (abdominal aortic aneurysm) September 102024 1:14pm Atelectasis of left lung September 10 1:14pm Pleural effusion on left September 10 1:14pm Acute appendicitis September 10, 2024 1:1 4pm Chief Complaint Admit Date 1 Wk June 30, 2024 11 :11am left atelecatasis/ EORDERS June 30, 2024 12:32pm Pleural effusion, not elsewhere classifi ed July 17, 2024 1:53pm 1 M FU July 28, 2024 1 0:54am MARY September 03, 2024 1:5 1pm APPENDICITIS, ABD PAIN September 06, 2024 4:01pm APPENDICITIS September 06, 2024 5:2 5pm APPENDICITIS September 07, 2024 12: 27pm [facility] Discharge FU September 10, 2024 1:1 4pm CAP W/COPD EXACERBATION & HYPOXIA October 11, 2024 5:39am CAP W/COPD EXACERBATION & HYPOXIA October 12, 2024 10:59am CAP W/COPD EXACERBATION & HYPOXIA October 13, 2024 4:23pm CAP W/COPD EXACERBATION & HYPOXIA October 13, 2024 7:41pm CAP W/COPD EXACERBATION & HYPOXIA October 14, 2024 8:27am CAP W/COPD EXACERBATION & HYPOXIA October 14, 2024 11:21am Reason for Visit Admit Date AAA (abdominal aortic aneurysm) June 30, 2024 11:11am Atelectasis of left lung June 30 11:11am Postoperative urinary retention June 30, 2024 11:11am Status post AAA (abdominal aortic aneury sm) repair June 30, 2024 11:11am HTN (hypertension) June 30, 2024 11 :11am Atelectasis of left lung July 28, 025 10:54am Pleural effusion on left July 28 025 10:54am Status post AAA (abdominal aortic aneury sm) repair July 28, 2024 10:54am HTN (hypertension) July 28, 2024 1 0:54am Acute appendicitis September 06, 2024 5:2 5pm AAA (abdominal aortic aneurysm) September 102024 1:14pm Atelectasis of left lung September 10 1:14pm Pleural effusion on left September 10 1:14pm Acute appendicitis September 10, 2024 1:1 4pm Abnormal computed tomography of abdomen and pelvis October 11, 2024 5:39am Acute respiratory failure with hypoxia A pril 2024 5:39am KRYSTA (acute kidney injury) October 11 5:39am Anemia October 11, 2024 5:3 9am Bradycardia October 11, 2024 5:3 9am Hypoxia October 11, 2024 5:3 9am Lactic acidosis October 11, 2024 5:3 9am Leukocytosis October 11, 2024 5:3 9am Multifocal pneumonia October 11, 2024 5: 39am Right lower quadrant pain October 11 5:39am Streptococcal pneumonia October 11, 2024 5:39am COPD with acute exacerbation October 11, 2024 5:39am Chief Complaint Admit Date Pleural effusion, not elsewhere classifi ed July 17, 2024 1:53pm 1 M FU July 28, 2024 1 0:54am MARY September 03, 2024 1:5 1pm APPENDICITIS, ABD PAIN September 06, 2024 4:01pm APPENDICITIS September 06, 2024 5:2 5pm APPENDICITIS September 07, 2024 12: 27pm [facility] Discharge FU September 10, 2024 1:1 4pm CAP W/COPD EXACERBATION & HYPOXIA October 11, 2024 5:39am CAP W/COPD EXACERBATION & HYPOXIA October 12, 2024 10:59am CAP W/COPD EXACERBATION & HYPOXIA October 13, 2024 4:23pm CAP W/COPD EXACERBATION & HYPOXIA October 13, 2024 7:41pm CAP W/COPD EXACERBATION & HYPOXIA October 14, 2024 8:27am CAP W/COPD EXACERBATION & HYPOXIA October 14, 2024 11:21am YEAST INFECTION, SICK October 23, 2024 7: 19am XRAY October 23, 2024 7:32am [facility] Discharge FU October 27, 2024 8:27am SOB November 07, 2024 12:02 pm Reason for Visit Admit Date Atelectasis of left lung July 28, 2 025 10:54am Pleural effusion on left July 28, 025 10:54am Status post AAA (abdominal aortic aneury sm) repair July 28, 2024 10:54am HTN (hypertension) July 28, 2024 1 0:54am Acute appendicitis September 06, 2024 5:2 5pm AAA (abdominal aortic aneurysm) September 102024 1:14pm Atelectasis of left lung September 10 1:14pm Pleural effusion on left September 10 1:14pm Acute appendicitis September 10, 2024 1:1 4pm Abnormal computed tomography of abdomen and pelvis October 11, 2024 5:39am Hypoxia October 11, 2024 5:3 9am Multifocal pneumonia October 11, 2024 5: 39am Streptococcal pneumonia October 11, 2024 5:39am Acute respiratory failure with hypoxia A pril 2024 5:39am KRYSTA (acute kidney injury) October 11 5:39am Anemia October 11, 2024 5:3 9am Bradycardia October 11, 2024 5:3 9am COPD with acute exacerbation October 11, 2024 5:39am Lactic acidosis October 11, 2024 5:3 9am Leukocytosis October 11, 2024 5:3 9am Right lower quadrant pain October 11 5:39am Oral yeast infection October 23, 2024 7:19a m Pneumonia October 23, 2024 7:19am SOB (shortness of breath) October 23, 2024 7:19am Dysuria October 27, 2024 8:27am Pneumonia October 27, 2024 8:27am Postoperative urinary retention October 27, 2024 8:27am Status post AAA (abdominal aortic aneury sm) repair October 27, 2024 8:27am Streptococcal pneumonia October 27, 2024 8: 27am COPD (chronic obstructive pulmonary dise ase) October 27, 2024 8:27am HTN (hypertension) October 27, 2024 8:27am Reason for Referral Specialty Diagnoses / Procedures Referred By Trey t Referred To Contact CT IMAGING Diagnoses Abdominal aortic aneurysm (AAA) without rupture, unspecified part (HCC) Procedures CTA ABD/PEL WO/W IVCON CT ANGIO ABD&PLVIS CNTRST MTRL W/WO CNTRST IMGES Yobani Lester MD [address] [id number] [place] [address] Referral ID Status Reason Start Date Expiration Date Visits Requested Visits Authorized [id number] Authorized Auto-Generat ed Referral 09/12/2023 10/11/2024 1 1 Specialty Diagnoses / Procedures Referred By Trey t Referred To Contact CT IMAGING Diagnoses Abdominal aortic aneurysm (AAA) without rupture, unspecified part (HCC) Procedures CTA CHEST (NONGATED) WO/W IVCON CT ANGIOGRAPHY CHEST W/CONTRAST/NONCONTRAST Yobani Lester MD [address] [place] [address] Ct Imaging [place] [address] Referral ID Status Reason Start Date Expiration Date Visits Requested Visits Authorized [id number] Authorized Auto-Generat ed Referral 09/12/2023 10/11/2024 1 1 Specialty Diagnoses / Procedures Referred By Contac t Referred To Contact CT IMAGING Diagnoses 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) Procedures CTA ABD/PEL WO/W IVCON CT ANGIO ABD&PLVIS CNTRST MTRL W/WO CNTRST IMGES Yobani Lester MD [address] [place] [address] Ct Imaging [facility] Referral ID Status Reason Start Date Expiration Date Visits Requested Visits Authorized [id number] Authorized Auto-Generat ed Referral 10/03/2023 11/01/2024 1 1 Specialty Diagnoses / Procedures Referred By Contac t Referred To Contact CT IMAGING Diagnoses 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) Procedures CTA CHEST (NONGATED) WO/W IVCON CT ANGIOGRAPHY CHEST W/CONTRAST/NONCONTRAST Yobani Lester MD [address] [place] [address] Ct Imaging [facility] Referral ID Status Reason Start Date Expiration Date Visits Requested Visits Authorized [id number] Authorized Auto-Generat ed Referral 10/03/2023 11/01/2024 1 1 Specialty Diagnoses / Procedures Referred By Contac t Referred To Contact Dermatology Diagnoses Rash Procedures CONSULT TO DERMATOLOGY Kaye Case APRN.STREET ENGINEER [address] [facility] [place] [address] Referral ID Status Reason Start Date Expiration Date Visits Requested Visits Authorized [id number] Ref Not Required PCP Requested Referral 05/05/2025 1 1 Additional Source Comments INFORMATION SOURCE (unrecogn ized section and content) DATE CREATED AUTHOR 05/26/2018 [facility] ([place]) DATE CREATED AUTHOR AUTHOR'S ORGANIZ ATION 10/28/2024 [facility] DATE CREATED AUTHOR AUTHOR'S ORGANIZ ATION [facility] Goals (unrecognized section and content) Goals may be documented in a n alternate sectionGoals may be documented in an alternate sectionGoals may be documented in an alternate sectionGoals may be documented in an alternate section Care Teams (unrecognized sec tion and content) Team Status: Active Member Role Status Dates No Primary Care Physician Family Provider Active Dr. Jannet Dey MD Primary Care Provider Active Team Status: Inactive Member Role Status Dates Dr. Jannet Dey MD Primary Care Provider, Attendi ng Provider Active Team Status: Inactive Member Role Status Dates Dr. Jannet Dey MD Primary Care Provider, Referri ng Provider Active Isrrael MIGUEL, [place] Attending Provider Active Team Status: Inactive Member Role Status Dates Dr. Jannet Dey MD Primary Care Provider Active Dr. Gurmeet Barillas MD Emergency Provider Active Team Status: Inactive Member Role Status Dates Dr. Jannet Dey MD Primary Care Provider Active Dr. Ilia Odom MD Attending Provider, Referring Provider Active Spiral Machine Operator Relationship Specialty Start Date End Date Venkat Clancy MD [address] [place] [address] PCP - General Internal Medicine 03/22/15 Spiral Machine Operator Relationship Specialty Start Date End Date Jannet Dey MD [address] [address] PCP - General Internal Medicine 10/03/23 Ilia Odom MD [address] [facility] [address] [address] Vascular Surgery 10/03/23 Spiral Machine Operator Relationship Specialty Start Date End Date Jannet Dey MD [address] [address] PCP - General Internal Medicine 10/03/23 Ilia Odom MD [address] [address] Vascular Surgery 10/03/23 Spiral Machine Operator Relationship Specialty Start Date End Date Jannet Dey MD [address] [address] PCP - General Internal Medicine 10/03/23 Ilia Odom MD [address] [facility] [address] [place] [address] Vascular Surgery 10/03/23 Spiral Machine Operator Relationship Specialty Start Date End Date Jannet Dey MD [address] [address] PCP - General Internal Medicine 10/03/23 Ilia Odom MD [address] [address] Vascular Surgery 10/03/23 Spiral Machine Operator Relationship Specialty Start Date End Date Jannet Dey MD [address] [address] PCP - General Internal Medicine 10/03/23 Ilia Odom MD [address] [address] Vascular Surgery 10/03/23 Spiral Machine Operator Relationship Specialty Start Date End Date Jannet Dey MD [address] [address] PCP - General Internal Medicine 10/03/23 Ilia Odom MD [address] [address] Vascular Surgery 10/03/23 Spiral Machine Operator Relationship Specialty Start Date End Date Jannet Dey MD [address] [address] PCP - General Internal Medicine 10/03/23 Ilia Odom MD [address] [facility] [address] [place] [address] Vascular Surgery 10/03/23 Spiral Machine Operator Relationship Specialty Start Date End Date Jannet Dey MD [address] [address] PCP - General Internal Medicine 10/03/23 Ilia Odom MD [address] [address] Vascular Surgery 10/03/23 Spiral Machine Operator Relationship Specialty Start Date End Date Jannet Dey MD [address] [address] PCP - General Internal Medicine 10/03/23 Ilia Odom MD [address] [address] Vascular Surgery 10/03/23 Spiral Machine Operator Relationship Specialty Start Date End Date Jannet Dey MD [address] [address] PCP - General Internal Medicine 10/03/23 Ilia Odom MD [address] [address] Vascular Surgery 10/03/23 Spiral Machine Operator Relationship Specialty Start Date End Date Jannet Dey MD [address] [facility] [address] [place] [address] PCP - General Internal Medicine 10/03/23 Ilia Odom MD [address] [place] [address] Vascular Surgery 10/03/23 Team Status: Active Member Role Status Dates Dr. Jannet Dey MD Primary Care Provider Active Team Status: Inactive Member Role Status Dates Dr. Jannet Dey MD Primary Care Provider Active Start: June 09, 2024 End: June 09, 2024 Dr. Jannet Dey MD Attending Provider Active Start: June 09, 2024 End: June 09, 2024 Team Status: Inactive Member Role Status Dates Dr. Jannet Dey MD Primary Care Provider Active Start: June 30, 2024 End: June 30, 2024 Dr. Jannet Dye MD Attending Provider Active Start: June 30, 2024 End: June 30, 2024 Team Status: Inactive Member Role Status Dates Dr. Jannet Dey MD Primary Care Provider Active Start: June 30, 2024 End: June 30, 2024 Dr. Jannet Dey MD Attending Provider Active Start: June 30, 2024 End: June 30, 2024 Dr. Jannet Dey MD Referring Provider Active Start: June 30, 2024 End: June 30, 2024 Team Status: Inactive Member Role Status Dates Dr. Jannet Dey MD Primary Care Provider Active Start: July 17, 2024 End: July 17, 2024 Dr. Jannet Dey MD Attending Provider Active Start: July 17, 2024 End: July 17, 2024 Dr. Jannet Dey MD Referring Provider Active Start: July 17, 2024 End: July 17, 2024 Team Status: Inactive Member Role Status Dates Dr. Jannet eDy MD Primary Care Provider Active Start: July 28, 2024 End: July 28, 2024 Dr. Jannet Dey MD Attending Provider Active Start: July 28, 2024 End: July 28, 2024 Team Status: Active Member Role Status Dates Dr. Jannet Dey MD Primary Care Provider Active Start: September 03, 2024 Dr. Ilia Odom MD Attending Provider Active Start: September 03, 2024 Dr. Ilia Odom MD Referring Provider Active Start: September 03, 2024 Team Status: Active Member Role Status Dates Dr. Jannet Dey MD Primary Care Provider Active Start: September 06, 2024 Dr. Donovan Vora DO Emergency Provider Active Start: September 06, 2024 Dr. Yang Smiley MD Attending Provider Active Start: September 06, 2024 Team Status: Active Member Role Status Dates Dr. Jannet Dey MD Primary Care Provider Active Start: September 06, 2024 Dr. Donovan Vora DO Emergency Provider Active Start: September 06, 2024 Dr. Yang Smiley MD Attending Provider Active Start: September 06, 2024 Dr. Yang Smiley MD Other Provider Active St art: September 06, 2024 Team Status: Inactive Member Role Status Dates Dr. Jannet Dey MD Primary Care Provider Active Start: September 06, 2024 End: September 07, 2024 Dr. Donovan Vora DO Emergency Provider Active Start: September 06, 2024 End: September 07, 2024 Dr. Yang Smiley MD Admit Provider Active St art: September 06, 2024 End: September 07, 2024 Dr. Yang Smiley MD Attending Provider Active Start: September 06, 2024 End: September 07, 2024 Team Status: Active Member Role Status Dates Dr. Jannet Dey MD Primary Care Provider Active Start: September 07, 2024 Dr. Donovan Vora DO Emergency Provider Active Start: September 07, 2024 Dr. Yang Smiley MD Admit Provider Active St art: September 07, 2024 Dr. Yang Smiley MD Attending Provider Active Start: September 07, 2024 Dr. Yang Smiley MD Other Provider Active St art: September 07, 2024 Team Status: Inactive Member Role Status Dates Dr. Jannet Dey MD Primary Care Provider Active Start: September 03, 2024 End: September 03, 2024 Dr. Ilia Odom MD Attending Provider Active Start: September 03, 2024 End: September 03, 2024 Dr. Ilia Odom MD Referring Provider Active Start: September 03, 2024 End: September 03, 2024 Team Status: Inactive Member Role Status Dates Dr. Jannet Dey MD Primary Care Provider Active Start: September 10, 2024 End: September 10, 2024 Dr. Jannet Dey MD Attending Provider Active Start: September 10, 2024 End: September 10, 2024 Spiral Machine Operator Relationship Specialty Start Date End Date Jannet Dey MD [address] [facility] [address] [place] [address] PCP - General Internal Medicine 10/03/23 Ilia Odom MD [address] [facility] [address] [place] [address] Vascular Surgery 10/03/23 Team Status: Active Member Role Status Dates Dr. Jannet Dey MD Primary Care Provider Active Start: October 11, 2024 Dr. Preston Jimenez DO Emergency Provider Active Start: October 11, 2024 Dr. Nikolai Mejia , Admit Provider Active Start: October 11, 2024 Dr. Nikolai Mejia DO Attending Provider Active Start: October 11, 2024 Team Status: Inactive Member Role Status Dates Dr. Jannet Dey MD Primary Care Provider Active Start: October 11, 2024 End: October 14, 2024 Dr. Preston Jimenez DO Emergency Provider Active Start: October 11, 2024 End: October 14, 2024 Dr. Nikolai Mejia , DO Admit Provider Active Start: October 11, 2024 End: October 14, 2024 Dr. Nikolai Mejia DO Other Provider Active Start: October 11, 2024 End: October 14, 2024 Dr. Hans Hatch MD Other Provider Active Start: October 11, 2024 End: October 14, 2024 Dr. Dakota Rice MD Other Provider Active Start: October 11, 2024 End: October 14, 2024 Dr. Vitaly Umana MD Other Provider Active Star t: October 11, 2024 End: October 14, 2024 Dr. Escobar Zavala DO Other Provider Active Start : October 11, 2024 End: October 14, 2024 Dr. Anshul Quan MD Other Provider Active Sta rt: October 11, 2024 End: October 14, 2024 Dr. Guillermo Klein MD Other Provider Active St art: October 11, 2024 End: October 14, 2024 Dr. Joni Kelley MD Other Provider Active S tart: October 11, 2024 End: October 14, 2024 Dr. Shawna Olivarez MD Other Provider Active Start: October 11, 2024 End: October 14, 2024 Dr. Shane Perea MD Other Provider Active Start : October 11, 2024 End: October 14, 2024 Dr. Satya Rocha MD Other Provider Active Start: October 11, 2024 End: October 14, 2024 Dr. Preston Patrick MD Other Provider Active Start : October 11, 2024 End: October 14, 2024 Dr. Zaira Baltazar MD Other Provider Active Star t: October 11, 2024 End: October 14, 2024 Dr. Corine Cedeño MD Other Provider Active Sta rt: October 11, 2024 End: October 14, 2024 Dr. Uma Garrison MD Other Provider Active Sta rt: October 11, 2024 End: October 14, 2024 Dr. Michael Benton MD Other Provider Active Star t: October 11, 2024 End: October 14, 2024 Dr. Jono Verdin MD Other Provider Active St art: October 11, 2024 End: October 14, 2024 Dr. Rosalio Mcpherson MD Other Provider Active Star t: October 11, 2024 End: October 14, 2024 Dr. Sudeep Clements DO Other Provider Active St art: October 11, 2024 End: October 14, 2024 Dr. Luis Barron MD Other Provider Active Start: October 11, 2024 End: October 14, 2024 Dr. Genaro Agrawal MD Other Provider Active St art: October 11, 2024 End: October 14, 2024 Dr. Barber Almendarez DO Other Provider Active Start: October 11, 2024 End: October 14, 2024 Dr. Trent Mcgregor MD Other Provider Active Star t: October 11, 2024 End: October 14, 2024 Dr. Lee Bucio MD Other Provider Active Sta rt: October 11, 2024 End: October 14, 2024 Dr. Gabriela Contreras DO Attending Provider Active S tart: October 11, 2024 End: October 14, 2024 Dr. Neisha Boston MD Other Provider Active St art: October 11, 2024 End: October 14, 2024 Team Status: Active Member Role Status Dates Dr. Jnanet Dey MD Primary Care Provider Active Start: October 11, 2024 Dr. Ray Antoine MD Attending Provider Active S tart: October 11, 2024 Team Status: Active Member Role Status Dates Dr. Jannet Dey MD Primary Care Provider Active Start: October 12, 2024 Dr. Preston Jimenez DO Emergency Provider Active Start: October 12, 2024 Dr. Nikolai Mejia DO Admit Provider Active Start: October 12, 2024 Dr. Nikolai Mejia DO Other Provider Active Start: October 12, 2024 Dr. Neisha Boston MD Attending Provider Active Start: October 12, 2024 Dr. Neisha Boston MD Other Provider Active St art: October 12, 2024 Dr. Hans Hatch MD Other Provider Active Start: October 12, 2024 Dr. Dakota Rice MD Other Provider Active Start: October 12, 2024 Dr. Vitaly Umana MD Other Provider Active Star t: October 12, 2024 Dr. Escobar Zavala DO Other Provider Active Start : October 12, 2024 Dr. Anshul Quan MD Other Provider Active Sta rt: October 12, 2024 Dr. Guillermo Klein MD Other Provider Active St art: October 12, 2024 Dr. Joni Kelley MD Other Provider Active S tart: October 12, 2024 Dr. Shawna Olivarez MD Other Provider Active Start: October 12, 2024 Dr. Shane Perea MD Other Provider Active Start : October 12, 2024 Dr. Satya Rocha MD Other Provider Active Start: October 12, 2024 Dr. Preston Patrick MD Other Provider Active Start : October 12, 2024 Dr. Zaira Baltazar MD Other Provider Active Star t: October 12, 2024 Dr. Corine Cedeño MD Other Provider Active Sta rt: October 12, 2024 Dr. Uma Garrison MD Other Provider Active Sta rt: October 12, 2024 Dr. Michael Benton MD Other Provider Active Star t: October 12, 2024 Dr. Jono Verdin MD Other Provider Active St art: October 12, 2024 Dr. Rosalio Mcpherson MD Other Provider Active Star t: October 12, 2024 Dr. Sudeep Clements , Other Provider Active St art: October 12, 2024 Dr. Luis Barron MD Other Provider Active Start: October 12, 2024 Dr. Genaro Agrawal MD Other Provider Active St art: October 12, 2024 Dr. Barber Almendarez DO Other Provider Active Start: October 12, 2024 Dr. Trent Mcgregor MD Other Provider Active Star t: October 12, 2024 Dr. Lee Bucio MD Other Provider Active Sta rt: October 12, 2024 Team Status: Active Member Role Status Dates Dr. Jannet Dey MD Primary Care Provider Active Start: October 13, 2024 Dr. Preston Jimenez , Emergency Provider Active Start: October 13, 2024 Dr. Nikolai Mejia , DO Admit Provider Active Start: October 13, 2024 Dr. Nikolai Mejia DO Other Provider Active Start: October 13, 2024 Dr. Hans Hatch MD Other Provider Active Start: October 13, 2024 Dr. Dakota Rice MD Other Provider Active Start: October 13, 2024 Dr. Vitaly Umana MD Other Provider Active Star t: October 13, 2024 Dr. Escobar Zavala , Other Provider Active Start : October 13, 2024 Dr. Anshul Quan MD Other Provider Active Sta rt: October 13, 2024 Dr. Guillermo Klein MD Other Provider Active St art: October 13, 2024 Dr. Joni Kelley MD Other Provider Active S tart: October 13, 2024 Dr. Shawna Olivarez MD Other Provider Active Start: October 13, 2024 Dr. Shane Perea MD Other Provider Active Start : October 13, 2024 Dr. Satya Rocha MD Other Provider Active Start: October 13, 2024 Dr. Preston Patrick MD Other Provider Active Start : October 13, 2024 Dr. Zaira Baltazar MD Other Provider Active Star t: October 13, 2024 Dr. Corine Cedeño MD Other Provider Active Sta rt: October 13, 2024 Dr. Uma Garrison MD Other Provider Active Sta rt: October 13, 2024 Dr. Michael Benton MD Other Provider Active Star t: October 13, 2024 Dr. Jono Verdin MD Other Provider Active St art: October 13, 2024 Dr. Rosalio Mcpherson MD Other Provider Active Star t: October 13, 2024 Dr. Sudeep Clements DO Other Provider Active St art: October 13, 2024 Dr. Luis Barron MD Other Provider Active Start: October 13, 2024 Dr. Genaro Agrawal MD Other Provider Active St art: October 13, 2024 Dr. Barber Almendarez DO Other Provider Active Start: October 13, 2024 Dr. Trent Mcgregor MD Other Provider Active Star t: October 13, 2024 Dr. Lee Bucio MD Other Provider Active Sta rt: October 13, 2024 Dr. Gabriela Contreras DO Other Provider Active Start : October 13, 2024 Dr. Neisha Boston MD Other Provider Active St art: October 13, 2024 Dr. Yang Smiley MD Attending Provider Active Start: October 13, 2024 Team Status: Active Member Role Status Dates Dr. Jannet Dey MD Primary Care Provider Active Start: October 13, 2024 Dr. Preston Jimenez , Emergency Provider Active Start: October 13, 2024 Dr. Nikolai Mejia , Admit Provider Active Start: October 13, 2024 Dr. Nikolai Mejia DO Other Provider Active Start: October 13, 2024 Dr. Hans Hatch MD Other Provider Active Start: October 13, 2024 Dr. Dakota Rice MD Other Provider Active Start: October 13, 2024 Dr. Vitaly Umana MD Other Provider Active Star t: October 13, 2024 Dr. Escobar Zavala , Other Provider Active Start : October 13, 2024 Dr. Anshul Quan MD Other Provider Active Sta rt: October 13, 2024 Dr. Guillermo Klein MD Other Provider Active St art: October 13, 2024 Dr. Joni Kelley MD Other Provider Active S tart: October 13, 2024 Dr. Shawna Olivarez MD Other Provider Active Start: October 13, 2024 Dr. Shane Perea MD Other Provider Active Start : October 13, 2024 Dr. Satya Rocha MD Other Provider Active Start: October 13, 2024 Dr. Preston Patrick MD Other Provider Active Start : October 13, 2024 Dr. Zaira Baltazar MD Other Provider Active Star t: October 13, 2024 Dr. Corine Cedeño MD Other Provider Active Sta rt: October 13, 2024 Dr. Uma Garrison MD Other Provider Active Sta rt: October 13, 2024 Dr. Michael Benton MD Other Provider Active Star t: October 13, 2024 Dr. Jono Verdin MD Other Provider Active St art: October 13, 2024 Dr. Rosalio Mcpherson MD Other Provider Active Star t: October 13, 2024 Dr. Sudeep Clements DO Other Provider Active St art: October 13, 2024 Dr. Luis Barron MD Other Provider Active Start: October 13, 2024 Dr. Genaro Agrawal MD Other Provider Active St art: October 13, 2024 Dr. Barber Almendarez DO Other Provider Active Start: October 13, 2024 Dr. Trent Mcgregor MD Other Provider Active Star t: October 13, 2024 Dr. Lee Bucio MD Other Provider Active Sta rt: October 13, 2024 Dr. Gabriela Contreras DO Attending Provider Active S tart: October 13, 2024 Dr. Gabriela Contreras DO Other Provider Active Start : October 13, 2024 Dr. Neisha Boston MD Other Provider Active St art: October 13, 2024 Team Status: Active Member Role Status Dates Dr. Jannet Dey MD Primary Care Provider Active Start: October 14, 2024 Dr. Preston Jimenez DO Emergency Provider Active Start: October 14, 2024 Dr. Nikolai Mejia DO Admit Provider Active Start: October 14, 2024 Dr. Nikolai Mejia , Other Provider Active Start: October 14, 2024 Dr. Hans Hatch MD Other Provider Active Start: October 14, 2024 Dr. Dakota Rice MD Other Provider Active Start: October 14, 2024 Dr. Vitaly Umana MD Other Provider Active Star t: October 14, 2024 Dr. Escobar Zavala , DO Other Provider Active Start : October 14, 2024 Dr. Anshul Quan MD Other Provider Active Sta rt: October 14, 2024 Dr. Guillermo Klein MD Other Provider Active St art: October 14, 2024 Dr. Joni Kelley MD Other Provider Active S tart: October 14, 2024 Dr. Shawna Olivarez MD Other Provider Active Start: October 14, 2024 Dr. Shane Perea MD Other Provider Active Start : October 14, 2024 Dr. Satya Rocha MD Other Provider Active Start: October 14, 2024 Dr. Preston Patrick MD Other Provider Active Start : October 14, 2024 Dr. Zaira Baltazar MD Other Provider Active Star t: October 14, 2024 Dr. Corine Cedeño MD Other Provider Active Sta rt: October 14, 2024 Dr. Uma Garrison MD Other Provider Active Sta rt: October 14, 2024 Dr. Michael Benton MD Other Provider Active Star t: October 14, 2024 Dr. Jono Verdin MD Other Provider Active St art: October 14, 2024 Dr. Rosalio Mcpherson MD Other Provider Active Star t: October 14, 2024 Dr. Sudeep Clements , Other Provider Active St art: October 14, 2024 Dr. Luis Barron MD Other Provider Active Start: October 14, 2024 Dr. Genaro Agrawal MD Other Provider Active St art: October 14, 2024 Dr. Barber Almendarez , Other Provider Active Start: October 14, 2024 Dr. Trent Mcgregor MD Other Provider Active Star t: October 14, 2024 Dr. Lee Bucio MD Other Provider Active Sta rt: October 14, 2024 Dr. Gabriela Contreras , DO Other Provider Active Start : October 14, 2024 Dr. Neisha Boston MD Other Provider Active St art: October 14, 2024 Dr. Yang Smiley MD Attending Provider Active Start: October 14, 2024 Team Status: Active Member Role Status Dates Dr. Jannet Dey MD Primary Care Provider Active Start: October 14, 2024 Dr. Preston Jimenez , Emergency Provider Active Start: October 14, 2024 Dr. Nikolai Mejia , DO Admit Provider Active Start: October 14, 2024 Dr. Nikolai Mejia , DO Other Provider Active Start: October 14, 2024 Dr. Hans Hatch MD Other Provider Active Start: October 14, 2024 Dr. Dakota Rice MD Other Provider Active Start: October 14, 2024 Dr. Vitaly Umana MD Other Provider Active Star t: October 14, 2024 Dr. Escobar Zavala , DO Other Provider Active Start : October 14, 2024 Dr. Anshul Quan MD Other Provider Active Sta rt: October 14, 2024 Dr. Guillermo Klein MD Other Provider Active St art: October 14, 2024 Dr. Joni Kelley MD Other Provider Active S tart: October 14, 2024 Dr. Shawna Olivarez MD Other Provider Active Start: October 14, 2024 Dr. Shane Perea MD Other Provider Active Start : October 14, 2024 Dr. Satya Rocha MD Other Provider Active Start: October 14, 2024 Dr. Preston Patrick MD Other Provider Active Start : October 14, 2024 Dr. Zaira Baltazar MD Other Provider Active Star t: October 14, 2024 Dr. Corine Cedeño MD Other Provider Active Sta rt: October 14, 2024 Dr. Uma Garrison MD Other Provider Active Sta rt: October 14, 2024 Dr. Michael Benton MD Other Provider Active Star t: October 14, 2024 Dr. Jono Verdin MD Other Provider Active St art: October 14, 2024 Dr. Rosalio Mcpherson MD Other Provider Active Star t: October 14, 2024 Dr. Sudeep Clements , Other Provider Active St art: October 14, 2024 Dr. Luis Barron MD Other Provider Active Start: October 14, 2024 Dr. Genaro Agrawal MD Other Provider Active St art: October 14, 2024 Dr. Barber Almendarez DO Other Provider Active Start: October 14, 2024 Dr. Trent Mcgregor MD Other Provider Active Star t: October 14, 2024 Dr. Lee Bucio MD Other Provider Active Sta rt: October 14, 2024 Dr. Gabriela Contreras DO Attending Provider Active S tart: October 14, 2024 Dr. Gabriela Contreras DO Other Provider Active Start : October 14, 2024 Dr. Neisha Boston MD Other Provider Active St art: October 14, 2024 Team Status: Active Member Role Status Dates Dr. Jannet Dey MD Primary Care Provider Active Start: October 13, 2024 Dr. Preston Jimenez DO Emergency Provider Active Start: October 13, 2024 Dr. Nikolai Mejia DO Admit Provider Active Start: October 13, 2024 Dr. Nikolai Mejia DO Other Provider Active Start: October 13, 2024 Dr. Hans Hatch MD Other Provider Active Start: October 13, 2024 Dr. Dakota Rice MD Other Provider Active Start: October 13, 2024 Dr. Vitaly Umana MD Other Provider Active Star t: October 13, 2024 Dr. Escobar Zavala DO Other Provider Active Start : October 13, 2024 Dr. Anshul Quan MD Other Provider Active Sta rt: October 13, 2024 Dr. Guillermo Klein MD Other Provider Active St art: October 13, 2024 Dr. Joni Kelley MD Other Provider Active S tart: October 13, 2024 Dr. Shawna Olivarez MD Other Provider Active Start: October 13, 2024 Dr. Shane Perea MD Other Provider Active Start : October 13, 2024 Dr. Satya Rocha MD Other Provider Active Start: October 13, 2024 Dr. Preston Patrick MD Other Provider Active Start : October 13, 2024 Dr. Zaira Baltazar MD Other Provider Active Star t: October 13, 2024 Dr. Corine Cedeño MD Other Provider Active Sta rt: October 13, 2024 Dr. Uma Garrison MD Other Provider Active Sta rt: October 13, 2024 Dr. Michael Benton MD Other Provider Active Star t: October 13, 2024 Dr. Jono Verdin MD Other Provider Active St art: October 13, 2024 Dr. Rosalio Mcpherson MD Other Provider Active Star t: October 13, 2024 Dr. Sudeep Clements , Other Provider Active St art: October 13, 2024 Dr. Luis Barron MD Other Provider Active Start: October 13, 2024 Dr. Genaro Agrawal MD Other Provider Active St art: October 13, 2024 Dr. Barber Almendarez DO Other Provider Active Start: October 13, 2024 Dr. Trent Mcgregor MD Other Provider Active Star t: October 13, 2024 Dr. Lee Bucio MD Other Provider Active Sta rt: October 13, 2024 Dr. Gabriela Contreras DO Referring Provider Active S tart: October 13, 2024 Dr. Gabriela Contreras DO Other Provider Active Start : October 13, 2024 Dr. Neisha Boston MD Other Provider Active St art: October 13, 2024 Dr. Yang Smiley MD Attending Provider Active Start: October 13, 2024 Team Status: Inactive Member Role Status Dates Dr. Jannet Dey MD Primary Care Provider Active Start: October 23, 2024 End: October 23, 2024 Dr. Jannet Dey MD Referring Provider Active Start: October 23, 2024 End: October 23, 2024 Isrrael MIGUEL PA Attending Provider Active Sta rt: October 23, 2024 End: October 23, 2024 Team Status: Inactive Member Role Status Dates Dr. Jannet Dey MD Primary Care Provider Active Start: October 23, 2024 End: October 23, 2024 Dr. Ray Antoine MD Attending Provider Active S tart: October 23, 2024 End: October 23, 2024 Team Status: Inactive Member Role Status Dates Dr. Jannet Dey MD Primary Care Provider Active Start: October 27, 2024 End: October 27, 2024 Dr. Jannet Dey MD Attending Provider Active Start: October 27, 2024 End: October 27, 2024 Team Status: Inactive Member Role Status Dates Dr. Jannet Dey MD Primary Care Provider Active Start: November 07, 2024 End: November 07, 2024 Dr. Gurmeet Barillas MD Emergency Provider Active Start: November 07, 2024 End: November 07, 2024 Source Comments (unrecognize d section and content) In the event this informatio n is protected by the Federal Confidentiality of Alcohol and Drug Abuse Patient Records regulations: The Federal rules restrict any use of the information to criminally investigate or prosecute any alcohol or drug abuse patient.[facility] the event this information is protected by the Federal Confidentiality of Alcohol and Drug Abuse Patient Records regulations: The Federal rules restrict any use of the information to criminally investigate or prosecute any alcohol or drug abuse patient.[facility] the event this information is protected by the Federal Confidentiality of Alcohol and Drug Abuse Patient Records regulations: The Federal rules restrict any use of the information to criminally investigate or prosecute any alcohol or drug abuse patient.[facility] the event this information is protected by the Federal Confidentiality of Alcohol and Drug Abuse Patient Records regulations: The Federal rules restrict any use of the information to criminally investigate or prosecute any alcohol or drug abuse patient.[facility] the event this information is protected by the Federal Confidentiality of Alcohol and Drug Abuse Patient Records regulations: The Federal rules restrict any use of the information to criminally investigate or prosecute any alcohol or drug abuse patient.[facility] the event this information is protected by the Federal Confidentiality of Alcohol and Drug Abuse Patient Records regulations: The Federal rules restrict any use of the information to criminally investigate or prosecute any alcohol or drug abuse patient.[facility] the event this information is protected by the Federal Confidentiality of Alcohol and Drug Abuse Patient Records regulations: The Federal rules restrict any use of the information to criminally investigate or prosecute any alcohol or drug abuse patient.[facility] the event this information is protected by the Federal Confidentiality of Alcohol and Drug Abuse Patient Records regulations: The Federal rules restrict any use of the information to criminally investigate or prosecute any alcohol or drug abuse patient.[facility] the event this information is protected by the Federal Confidentiality of Alcohol and Drug Abuse Patient Records regulations: The Federal rules restrict any use of the information to criminally investigate or prosecute any alcohol or drug abuse patient.[facility] the event this information is protected by the Federal Confidentiality of Alcohol and Drug Abuse Patient Records regulations: The Federal rules restrict any use of the information to criminally investigate or prosecute any alcohol or drug abuse patient.[facility] the event this information is protected by the Federal Confidentiality of Alcohol and Drug Abuse Patient Records regulations: The Federal rules restrict any use of the information to criminally investigate or prosecute any alcohol or drug abuse patient.[facility] the event this information is protected by the Federal Confidentiality of Alcohol and Drug Abuse Patient Records regulations: The Federal rules restrict any use of the information to criminally investigate or prosecute any alcohol or drug abuse patient.[facility] the event this information is protected by the Federal Confidentiality of Alcohol and Drug Abuse Patient Records regulations: The Federal rules restrict any use of the information to criminally investigate or prosecute any alcohol or drug abuse patient.[facility] the event this information is protected by the Federal Confidentiality of Alcohol and Drug Abuse Patient Records regulations: The Federal rules restrict any use of the information to criminally investigate or prosecute any alcohol or drug abuse patient.[facility] the event this information is protected by the Federal Confidentiality of Alcohol and Drug Abuse Patient Records regulations: The Federal rules restrict any use of the information to criminally investigate or prosecute any alcohol or drug abuse patient.[facility] Reason for Visit (unrecogniz ed section and content) Reason Comments Consult Reason Comments Radiology CT Specialty Diagnoses / Procedures Referred By Contac t Referred To Contact CT IMAGING Diagnoses 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) Procedures CTA ABD/PEL WO/W IVCON CT ANGIO ABD&PLVIS CNTRST MTRL W/WO CNTRST Yobani Paris MD [address] [place] [address] [place] [address] Referral ID Status Reason Start Date Expiration Date V isits Requested Visits Authorized [id number] Closed Auto-Generate d Referral 10/03/2023 11/01/2024 1 1 Reason Comments Established Patient Reason Comments Pre-Op Exam Reason Comments Radiology [place] Specialty Diagnoses / Procedures Referred By Contac t Referred To Contact MOLECULAR & FUNCTIONAL IMAGING Diagnoses 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) Encounter for screening for cardiovascular disorders Preop testing Procedures NM CARDIAC PERF STRESS/PHARM MYOCARDIAL SPECT MULTIPLE STUDIES [place] [id number] [facility] [address] [place] [address] Referral ID Status Reason Start Date Expiration Date V isits Requested Visits Authorized [id number] Closed Auto-Generate d Referral 04/29/2024 05/29/2025 1 1 Reason Comments Appointment Reason Comments Follow Up Phone Call [facility] f/u discharge 1s t attempt LVM Reason Comments Follow Up Phone Call [facility] post dis charge follow-up - contacted - all clear Reason Comments Post Op Reason Comments Established Patient FOR RECORDS PERTAINING TO PATIENTS WHO ARE [...] BE BASED ON THE PRIMARY CLINICAL RECORDS. [employer] provides no warranty or guarantee of the accuracy or completeness of information in this document.
[2025-02-08 13:40] LABS: AST(SGOT) 15 U/L (<=31); Alanine Aminotransfer ALT/SGPT 8 U/L (<=34); Albumin, Serum 3.8 g/dL (3.4-4.8); Alkaline Phosphatase 130 U/L (35-104); Anion Gap 11 (5-15); BUN 15 mg/dL (4-19); BUN/Creat Ratio 18.8 RATIO (10-20); Calcium,Total 9.3 mg/dL (7.6-11.0); Carbon Dioxide 27.0 mmol/L (21.0-32.0); Chloride 102 mmol/L (98-108); Estimated Creatinine Clearance 59.51 ml/min (50-250); Globulin 2.7 g/dL (2.2-4.2); Glucose 91 mg/dL (70-99); Hematocrit 45.4 % (37-47); Hemoglobin 15.3 g/dL (12.0-15.0); Immature Granulocytes Count 0.060 X10^3/uL (0.0-0.0); Lipase 97 U/L (13-75); Mean Corp Hgb Conc 33.7 g/dL (32-36); Mean Corpuscular Volume 98.1 fL (81-99); Mean Platelet Vol. 9.6 fl (6.2-12.0); NRBC Flagged by Analyzer 0 % (0-5); Platelet Count 205 K/mm3 (150-450); Potassium 4.0 mmol/L (3.3-5.1); RBC Distribution Width CV 16.3 % (11.6-14.6); RBC Distribution Width SD 55.5 fl (35.1-43.9); Red Blood Count 4.63 M/mm3 (4.2-5.4); White Blood Count 8.6 K/mm3 (4.4-11.0)
[2025-02-08 14:17] VITALS: BP 141/56; PULSE 46; RESP 14; O2SAT 94
[2025-02-08 14:18] LABS: Mucous, Urine 0 SEEN /hpf (<or=2+); Red Blood Cells-Urine 0 SEEN /hpf (0-5)
[2025-02-08 14:20] LABS: Color, Urine Yellow (Yellow); Glucose, Dipstick Normal (Normal); Ketone-Dipstick Negative (Negative); Leukocyte Esterase-Dipstick Negative /ul (Negative); Nitrite-Dipstick Negative (Negative); Occult Blood-Urine Negative /ul (Negative); Protein-Dipstick 30 mg/dl (Negative); Specific Gravity, Urine 1.010 (1.002-1.030); Urine Bilirubin Dipstick Negative (Negative)
[2025-02-08 14:27] LABS: Squamous Epithelial Cells - UA 0-5 SEEN /hpf (5-10)
[2025-02-08 15:37] VITALS: BP 135/81; PULSE 62; RESP 14; TEMP 36.3; O2SAT 100
[2025-02-08] MEDS: HYDROcodone Bitartrate/Apap 5/325 Tablet PO (15:40)
== END 2025-02-08 15:44 | disposition home or self-care (01) ==
PROVIDERS: Emergency Provider Student in an Organized Health Care Education/Training Program; PCP Internal Medicine; Visit Provider Student in an Organized Health Care Education/Training Program
DX: K29.70 Gastritis, unspecified, without bleeding (principal); K29.80 Duodenitis without bleeding; K52.9 Noninfective gastroenteritis and colitis, unspecified; I10 Essential (primary) hypertension; F17.200 Nicotine dependence, unspecified, uncomplicated; Z79.899 Other long term (current) drug therapy; Z86.16 Personal history of COVID-19
CPT/HCPCS: 74177; 80053; 81001; 83690; 85025; 96361; 96374; 96375; 99283; Q9967; A4216; J2405